=== PATIENT | female | born 1945 | race Caucasian/White ===

== ENCOUNTER → 2016-06-05 | Outpatient (CLI) | payer BC ==
[~2016-06-05] MED LIST: ASCO10003 PO; ASPCH81 PO; ASPI-435 PO; ASPI325T60 PO; ATOR-22 PO; B-COTAB18 PO; GABA-113 PO; GARL10007 PO; GARLTAB3 PO; GFNSR600 PO; HYDR-4079 PO; HYDR25TA4 PO; HYZ/10015 PO; IPRA1AER2 INH; MAGN400T6 PO; MELO15TA3 PO; METO25TA3 PO; MRLP17 PO; MULT-190 PO; NORT25CA PO; NRV/5 PO; NYSP EXT; NYSS5 PO; OMEG10007 PO; OXGN; SENN8.6T7 PO; SIMV20TA2 PO; SYMIN/8045 INH; VITA1TAB4 PO; VITA400C15 PO; VNTHFA/IN INH
[2016-06-05 10:16] LABS: BASO % 0.3 %; BASO ABS # 0.04 K/uL (0-0.2); COMPLETE YES; EOS % 0.5 %; HEMATOCRIT 53.3 % (37-47); IG% 0.2 %; LYMPH % 19.1 %; LYMPH ABS # 2.32 K/uL (1.2-3.4); MEAN CELL VOLUME 96.9 fL (80-100); MEAN CORPUSCULAR HEMOGLOBIN 32.2 pg (25-34); MEAN CORPUSCULAR HGB CONC 33.2 g/dl (32-36); MEAN PLATELET VOLUME 8.5 fL (7.4-10.4); NEUT % 73.9 %; PLATELET COUNT 273 K/uL (130-400); WHITE BLOOD COUNT 12.14 K/uL (4.8-10.8)
== END | disposition home or self-care (01) ==
LOC: C.LAB 09:32
PROVIDERS: ATTEND Internal Medicine Geriatric Medicine
DX: D75.1 Secondary polycythemia (principal)

== ENCOUNTER → 2016-10-02 | Outpatient (CLI) | payer BC ==
[~2016-10-02] MED LIST changes: -SIMV20TA2 PO
[2016-10-02 12:16] LABS: HEMATOCRIT 54.1 % (37-47); MEAN CELL VOLUME 95.2 fL (80-100); MEAN CORPUSCULAR HGB CONC 32.5 g/dl (32-36); MEAN PLATELET VOLUME 8.9 fL (7.4-10.4); PLATELET COUNT 246 K/uL (130-400); RED BLOOD COUNT 5.68 M/uL (4.2-5.4); WHITE BLOOD COUNT 10.42 K/uL (4.8-10.8)
== END ==
LOC: C.LABBFT 09:30
PROVIDERS: ATTEND Internal Medicine Geriatric Medicine
DX: D75.1 Secondary polycythemia (principal)

== ENCOUNTER 2016-10-10 22:33 | Inpatient (IN) | payer BC, OTHER ==
[~2016-10-10] VITALS: Ht 167.6 cm; Wt 107.0 kg
[~2016-10-10 22:33] MED LIST changes: -ASPI-435 PO; -ASPI325T60 PO; -GARL10007 PO; -GFNSR600 PO; -HYDR25TA4 PO; -IPRA1AER2 INH; -MRLP17 PO; -NYSP EXT; -NYSS5 PO; -SENN8.6T7 PO; -VITA1TAB4 PO; -VNTHFA/IN INH
[2016-10-10] MEDS ORDERED: GARL10007 PO (22:55)
[2016-10-10] MEDS ORDERED: VNTHFA/IN INH (22:55)
[2016-10-10] MEDS ORDERED: HYDR25TA4 PO (22:55)
[2016-10-10] MEDS ORDERED: VITA1TAB4 PO (22:55)
[2016-10-10] MEDS ORDERED: ASPI-435 PO (22:56)
[2016-10-10 23:21] LABS: BASO % 0.2 %; BASO ABS # 0.02 K/uL (0-0.2); COMPLETE YES; EOS % 0.1 %; HEMATOCRIT 50.6 % (37-47); IG% 0.8 %; LYMPH ABS # 1.99 K/uL (1.2-3.4); MEAN CELL VOLUME 94.4 fL (80-100); MEAN CORPUSCULAR HGB CONC 32.8 g/dl (32-36); MEAN PLATELET VOLUME 8.5 fL (7.4-10.4); MONO % 5.5 %; NEUT % 77.4 %; PLATELET COUNT 201 K/uL (130-400); RED BLOOD COUNT 5.36 M/uL (4.2-5.4); WHITE BLOOD COUNT 12.45 K/uL (4.8-10.8)
[2016-10-10] MEDS ORDERED: MoRPHine SULFATE 4 MG/ML 1 ML CARP\\VIAL IV STA (23:26)
[2016-10-10 23:59] LABS: INR 0.9 (0.9-1.1); PROTHROMBIN TIME (PATIENT) 10.1 SECONDS (9.0-12.0)
[2016-10-11] VITALS (12 sets, daily range): BP systolic 106–132; BP diastolic 59–76; PULSE 89–110; TEMP 36.5–37.1; O2SAT 91–95; Ht 167.6 cm; Wt 107.0 kg
[2016-10-11 00:08] LABS: ALT/SGPT 21 U/L (12-78); AST/SGOT 16 U/L (15-37); BLOOD UREA NITROGEN 14 mg/dl (7-18); BUN/CREATININE RATIO 14.7 (10-20); CALCIUM 9.1 mg/dl (8.5-10.1); CARBON DIOXIDE 32 mmol/L (21-32); CHLORIDE 101 mmol/L (98-107); CREATININE 0.97 mg/dl (0.60-1.20); GLUCOSE 152 mg/dl (70-99); POTASSIUM 3.8 mmol/L (3.5-5.1); SODIUM 141 mmol/L (136-145)
[2016-10-11 00:11] LABS: ALB/GLOB RATIO 0.8 (0.9-2); ALKALINE PHOSPHATASE 110 U/L (45-117)
[2016-10-11] MEDS ORDERED: MoRPHine SULFATE 4 MG/ML 1 ML CARP\\VIAL IV PRN (00:30)
[2016-10-11] MEDS ORDERED: ACETAMINOPHEN 325 MG TAB PO PRN (01:15)
[2016-10-11] MEDS ORDERED: ALBUTEROL HFA 8 GM INHALER INH PRN (01:15)
[2016-10-11] MEDS ORDERED: ALUMINUM/MAGNESIUM/SIMETH (MAALOX MAX) 30 ML UDC PO PRN (01:15)
[2016-10-11] MEDS ORDERED: MAGNESIUM HYDROXIDE SUSP 30 ML UDC PO PRN ×2 (01:15→18:15)
[2016-10-11] MEDS ORDERED: ONDANSETRON INJ 2 MG/ML 2 ML VIAL IV PRN ×2 (01:15→17:00)
[2016-10-11] MEDS ORDERED: POLYETHYLENE (MIRALAX) 17 GM PACK PO PRN (01:15)
--- NOTE | 2016-10-11 01:16 | EMERGENCY ROOM VISIT NOTE ---
History Report prepared by Jones: Sosa Alas Under the Supervision of: Dr. Alcides Oropeza D.O. 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 The patient stood up and lost her balance, falling sideways. She hit the edge of her left hip on a chair. She believes her hip is broken. She denies feeling dizzy when she fell. She denies any other injury. She has had her right hip repaired in the past. She has a history of PVC, polycythemia, and hypertension. 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 Review of Systems See HPI for pertinent positives & negatives. A total of 10 systems reviewed and were otherwise negative. Past Medical & Surgical Medical Problems: (1) Hip fracture (2) Hypertension (3) Polycythemia (4) PVC (premature ventricular contraction) Family History No pertinent family history stated. Social History Smoking Status: Current Every Day Smoker Marital Status: Occupation Status: retired Current/Historical Medications Scheduled Amlodipine Besylate (Amlodipine Besylate), 5 MG PO QAM Ascorbic Acid (Vitamin C), 1,000 MG PO QAM Aspirin (Aspirin 81), 81 MG PO DAILY Atorvastatin (Lipitor), 1 TAB PO DAILY Budesonide/Formoterol Fumarate (Symbicort 80/4.5 Inhaler), 2 PUFFS INH BID Fish Oil ([place]-3), 1 CAP PO DAILY Gabapentin (Neurontin), 600 MG PO TID Garlic (Garlic), 1,000 MG PO DAILY Home O2 Therapy (Oxygen), 2 LITERS NA HS Hydrocodone/Acetaminophen 10MG/325MG ([place] 10MG/325MG), 1.5 TAB PO QID Magnesium Oxide (Mag-Ox), 400 MG PO DAILY Metoprolol Succ (Toprol Xl) (Toprol-Xl), 25 MG PO DAILY Nortriptyline (Pamelor), 25 MG PO HS Ocuvite Preservision (Ocuvite Preservision), 1 TAB PO BID Vitamin E (Vitamin E), 400 UNITS PO DAILY Scheduled PRN Albuterol Hfa (Ventolin Hfa), 2 PUFFS INH Q6H PRN for SOB/Wheezing Hydrochlorothiazide (Hctz), 25 MG PO DAILY PRN for PRN Allergies Coded Allergies: Bacitracin (Verified Allergy, Unknown, EMACERATION SKIN AT SITE, 10/10/16) Neomycin (Verified Allergy, Unknown, EMACERATION SKIN AT SITE, 10/10/16) Polymyxin B (Verified Allergy, Unknown, EMACERATION SKIN AT SITE, 10/10/16) Bupropion (Verified Adverse Reaction, Severe, lips swelling, 10/10/16) Aminoglycosides (Verified Adverse Reaction, Intermediate, 10/10/16) Replaces BACITRACIN/NE Physical Exam Vital Signs Date Time Temp Pulse Resp B/P (MAP) Pulse Ox O2 Delivery O2 Flow Rate FiO2 10/11/16 01:03 106 18 93 Nasal Cannula 2.0 10/11/16 00:33 101 14 90 Nasal Cannula 2.0 10/11/16 00:03 108 18 10/10/16 23:56 126/87 10/10/16 23:53 112 10/10/16 23:33 110 24 92 Nasal Cannula 2.0 10/10/16 23:03 106 19 91 Nasal Cannula 2.0 10/10/16 22:53 36.9 108 22 188/137 95 Nasal Cannula 2.0 10/10/16 22:46 111 10/10/16 22:43 188/137 Physical Exam CONSTITUTIONAL/VITAL SIGNS: Reviewed / noted above. GENERAL: Non-toxic in appearance. INTEGUMENTARY: Warm, dry, and [place]. HEAD: Normocephalic. EYES: without scleral icterus or trauma. ENT/OROPHARYNX: clear and moist. LYMPHADENOPATHY/NECK: Is supple without lymphadenopathy or meningismus. RESPIRATORY: Lungs clear and equal. CARDIOVASCULAR: Regular rate and rhythm. GI/ABDOMEN: Soft and nontender. No organomegaly or pulsatile mass. No rebound or guarding. Normal bowel sounds. EXTREMITIES: Warm and well perfused. BACK: No CVA tenderness. NEUROLOGICAL: Intact without focal deficits. PSYCHIATRIC: normal affect. MUSCULOSKELETAL: Normally developed with good muscle tone. Discomfort to the left hip with palpation. Medical Decision & Procedures ER Provider Diagnostic Interpretation: X ray results and stated below per my interpretation. Hip/Pelvis X-ray: femoral neck fracture by the left hip. Chest X-ray: no acute disease, no pneumothorax, no pneumonia. Laboratory Results 10/10/16 23:12 Red Blood Count 5.36, Mean Corpuscular Volume 94.4, Mean Corpuscular Hemoglobin 31.0, Mean Corpuscular Hemoglobin Concent 32.8, Mean Platelet Volume 8.5, Neutrophils (%) (Auto) 77.4, Lymphocytes (%) (Auto) 16.0, Monocytes (%) (Auto) 5.5, Eosinophils (%) (Auto) 0.1, Basophils (%) (Auto) 0.2, Neutrophils # (Auto) 9.64, Lymphocytes # (Auto) 1.99, Monocytes # (Auto) 0.69, Eosinophils # (Auto) 0.01, Basophils # (Auto) 0.02 10/10/16 23:38 Test 10/10/16 23:12 10/10/16 23:38 White Blood Count 12.45 K/uL (4.8-10.8) Red Blood Count 5.36 M/uL (4.2-5.4) Hemoglobin 16.6 g/dL (12.0-16.0) Hematocrit 50.6 % (37-47) Mean Corpuscular Volume 94.4 fL (80-100) Mean Corpuscular Hemoglobin 31.0 pg (25-34) Mean Corpuscular Hemoglobin Concent 32.8 g/dl (32-36) Platelet Count 201 K/uL (130-400) Mean Platelet Volume 8.5 fL (7.4-10.4) Neutrophils (%) (Auto) 77.4 % Lymphocytes (%) (Auto) 16.0 % Monocytes (%) (Auto) 5.5 % Eosinophils (%) (Auto) 0.1 % Basophils (%) (Auto) 0.2 % Neutrophils # (Auto) 9.64 K/uL (1.4-6.5) Lymphocytes # (Auto) 1.99 K/uL (1.2-3.4) Monocytes # (Auto) 0.69 K/uL (0.11-0.59) Eosinophils # (Auto) 0.01 K/uL (0-0.5) Basophils # (Auto) 0.02 K/uL (0-0.2) RDW Standard Deviation 55.5 fL (36.4-46.3) RDW Coefficient of Variation 16.1 % (11.5-14.5) Immature Granulocyte % (Auto) 0.8 % Immature Granulocyte # (Auto) 0.10 K/uL (0.00-0.02) Prothrombin Time 10.1 SECONDS (9.0-12.0) Prothromb Time International Ratio 0.9 (0.9-1.1) Activated Partial Thromboplast Time 26.8 SECONDS (21.0-31.0) Partial Thromboplastin Ratio 1.0 Anion Gap 8.0 mmol/L (3-11) Est Creatinine Clear Calc Drug Dose 64.8 ml/min Estimated GFR () 67.6 Estimated GFR (Non- 58.3 BUN/Creatinine Ratio 14.7 (10-20) Calcium Level 9.1 mg/dl (8.5-10.1) Total Bilirubin 0.3 mg/dl (0.2-1) Direct Bilirubin < 0.1 mg/dl (0-0.2) Aspartate Amino Transf (AST/SGOT) 16 U/L (15-37) Alanine Aminotransferase (ALT/SGPT) 21 U/L (12-78) Alkaline Phosphatase 110 U/L (45-117) Total Protein 7.0 gm/dl (6.4-8.2) Albumin 3.2 gm/dl (3.4-5.0) Globulin 3.8 gm/dl (2.5-4.0) Albumin/Globulin Ratio 0.8 (0.9-2) Laboratory results as stated above per my review. Medications Administered Medications (Trade) Dose Ordered Sig/Jessica Route Start Time Stop Time Status Last Admin Dose Admin Morphine Sulfate (MoRPHine SULFATE INJ) 4 mg NOW STAT IV 10/10/16 23:26 10/10/16 23:27 DC 10/10/16 23:31 4 MG Morphine Sulfate (MoRPHine SULFATE INJ) 4 mg Q1H PRN IV 10/11/16 00:30 10/25/16 00:29 10/11/16 00:37 4 MG ECG Indication: other (fall) Rate (beats per minute): 106 Rhythm: sinus rhythm Findings: PVC, other (no acute injury) ED Course 2326: Morphine Sulfate 4 mg IV. 2328: Previous medical records were reviewed. The patient was evaluated in room A11B. A complete history and physical examination was performed. 2335: I discussed the patient's case with Dr. Lakhani, Orthopedic surgery - [facility]. He would like the patient to be admitted to medicine. 0030: Morphine Sulfate 4 mg IV. 0034: I discussed the patient's case with Dr. Shukla, [facility] [place]. The patient will be evaluated for further treatment and disposition. 0040: On reevaluation, the patient is resting comfortably. I discussed the results and findings with her. She verbalized agreement of the treatment plan. The patient will be evaluated for further management and care. Medical Decision Differential includes close head injury, intracranial bleed, facial trauma, cervical spine trauma, chest and thoracic trauma, abdominal and intra-abdominal trauma, spine neurologic trauma, extremity trauma. This is a 71-year-old female who presents to the ED with a chief complaint of a fall. The patient states that she lost her balance and fell onto a chair with her left hip. She denies striking her head or loss of consciousness. She reports a history of right hip arthroplasty by Dr. Mendes in the past. She is requesting that he see her for this injury. The patient has a left hip fracture on x-ray. She reports a history of polycythemia and hypertension. A twelve-lead EKG shows a sinus rhythm with PVCs. CBC was unremarkable. Chemistry panel was unremarkable. The patient was treated with IV morphine for pain. I spoke with Dr. Lakhani who requested medicine to admit the patient for medical clearance. Dr. Mendes can be consulted tomorrow for the patient, per her request. The patient was made nothing by mouth. I spoke with the hospitalist, who will see the patient. Consults Time Called: 2331 Consulting Physician: Dr. Lakhani, Orthopedic surgery - [facility] Returned Call: [phone] I discussed the patient's case with him. He would like the patient to be admitted to medicine. Additional Consults: Time Called: 2339 Consulted Physician: Dr. Shukla, [facility] [place] Returned Call: [phone] Additional Comments: Discussed the patient's case. The patient will be evaluated for further treatment and disposition. Impression Primary Impression: Hip fracture, left Scribe Attestation The scribe's documentation has been prepared under my direction and personally reviewed by me in its entirety. I confirm that the note above accurately reflects all work, treatment, procedures, and medical decision making performed by me. Departure Information Dispostion Being Evaluated By Hospitalist Referrals Jose Pelayo M.D. (PCP) Patient Instructions My [facility]
[2016-10-11] MEDS ORDERED: HYDROmorphone INJ 1 MG/ML SYR ONE (01:37)
--- NOTE | 2016-10-11 01:44 | History and Physical ---
History & Physical Date & Time of Service: Oct 11, 2016 at 01:25 Chief Complaint: Left Hip Pain Primary Care Physician: Jose Pelayo M.D. History of Present Illness Source: patient 71 y/o F Hx COPD, HTN, HPL, polycythemia. Pt fell out of bed and landed on her L hip sustaining an intertrochanteric fracture. She denies any preceding symptoms which may have lead to her fall such as dizziness, CP or palpitations. She had a phlebotomy of 500cc one day prior to admission. Past Medical/Surgical History 1) COPD - uses QHS 2) Polycythemia - etiology unclear - may be COPD-related 3) HTN 4) HPL 5) Continues to smoke 6) Obesity 7) Spinal stenosis 8) Neuropathy - idiopathic 9) Osteoporosis Surgical 1) R THR 2011 2) TKR 2008 3) Cataract surgery 4) Appendectomy 5) Tonsillectomy Family History Noncontributory Social History Smokes 10-20 cigarettes daily Smoking Status: Current Every Day Smoker Marital Status: Occupational Status: retired Immunizations History of Influenza Vaccine: N/A History of Tetanus Vaccine?: No History of Pneumococcal: No Pneumococcal Date: Dec 31, 2011 History of Hepatitis B Vaccine: Yes Multi-Drug Resistant Organisms History of MDRO: No Allergies Coded Allergies: Bacitracin (Verified Allergy, Unknown, EMACERATION SKIN AT SITE, 10/10/16) Neomycin (Verified Allergy, Unknown, EMACERATION SKIN AT SITE, 10/10/16) Polymyxin B (Verified Allergy, Unknown, EMACERATION SKIN AT SITE, 10/10/16) Bupropion (Verified Adverse Reaction, Severe, lips swelling, 10/10/16) Aminoglycosides (Verified Adverse Reaction, Intermediate, 10/10/16) Replaces BACITRACIN/NE Home Medications Scheduled Amlodipine Besylate (Amlodipine Besylate), 5 MG PO QAM Ascorbic Acid (Vitamin C), 1,000 MG PO QAM Aspirin (Aspirin 81), 81 MG PO DAILY Atorvastatin (Lipitor), 1 TAB PO DAILY Budesonide/Formoterol Fumarate (Symbicort 80/4.5 Inhaler), 2 PUFFS INH BID Fish Oil ([place]-3), 1 CAP PO DAILY Gabapentin (Neurontin), 600 MG PO TID Garlic (Garlic), 1,000 MG PO DAILY Home O2 Therapy (Oxygen), 2 LITERS NA HS Hydrocodone/Acetaminophen 10MG/325MG ([place] 10MG/325MG), 1.5 TAB PO QID Magnesium Oxide (Mag-Ox), 400 MG PO DAILY Metoprolol Succ (Toprol Xl) (Toprol-Xl), 25 MG PO DAILY Nortriptyline (Pamelor), 25 MG PO HS Ocuvite Preservision (Ocuvite Preservision), 1 TAB PO BID Vitamin E (Vitamin E), 400 UNITS PO DAILY Scheduled PRN Albuterol Hfa (Ventolin Hfa), 2 PUFFS INH Q6H PRN for SOB/Wheezing Hydrochlorothiazide (Hctz), 25 MG PO DAILY PRN for PRN Review of Systems Constitutional: No fever, No chills, No sweats Eyes: No worsening of vision, No eye pain ENT: No hearing loss, No unusual epistaxis, No nasal symptoms Respiratory: No cough, No sputum, No wheezing Cardiovascular: No chest pain, No orthopnea, No PND Abdomen: No pain, No nausea, No vomiting Musculoskeletal: + joint pain (L hip) Genitourinary - Female: No dysuria, No urinary frequency, No urinary urgency Neurologic: No memory loss, No paralysis, No weakness Psychiatric: No depression symptoms Endocrine: No fatigue Hematologic / Lymphatic: No abnormal bleeding/bruising Integumentary: No rash Allergic / Immunologic: No environmental allergies Physical Exam Vital Signs Date Time Temp Pulse Resp B/P (MAP) Pulse Ox O2 Delivery O2 Flow Rate FiO2 10/11/16 01:03 106 18 93 Nasal Cannula 2.0 10/11/16 00:33 101 14 90 Nasal Cannula 2.0 10/11/16 00:03 108 18 10/10/16 23:56 126/87 10/10/16 23:53 112 10/10/16 23:33 110 24 92 Nasal Cannula 2.0 10/10/16 23:03 106 19 91 Nasal Cannula 2.0 10/10/16 22:53 36.9 108 22 188/137 95 Nasal Cannula 2.0 10/10/16 22:46 111 10/10/16 22:43 188/137 General Appearance: WD/WN, no apparent distress Head: normocephalic Eyes: normal inspection, EOMI ENT: normal ENT inspection, pharynx normal Neck: supple, no JVD Respiratory/Chest: chest non-tender, + decreased breath sounds, + wheezing ( Mild end-expiratory wheezing) Cardiovascular: regular rate, rhythm, no edema, no gallop Abdomen/GI: normal bowel sounds, non tender, soft Back: normal inspection, no CVA tenderness Extremities/Musculoskelatal: + pertinent finding (LLE - shortened and externally rotated - mild B/L edema) Neurologic/Psych: staff genetic counselor II-XII nml as tested, no motor/sensory deficits, alert, normal mood/affect, normal reflexes, oriented x 3 Skin: normal color Diagnostics Laboratory Results Results Past 24 Hours Test 10/10/16 23:12 10/10/16 23:38 Range/Units White Blood Count 12.45 4.8-10.8 K/uL Red Blood Count 5.36 4.2-5.4 M/uL Hemoglobin 16.6 12.0-16.0 g/dL Hematocrit 50.6 37-47 % Mean Corpuscular Volume 94.4 80-100 fL Mean Corpuscular Hemoglobin 31.0 25-34 pg Mean Corpuscular Hemoglobin Concent 32.8 32-36 g/dl Platelet Count 201 130-400 K/uL Mean Platelet Volume 8.5 7.4-10.4 fL Neutrophils (%) (Auto) 77.4 % Lymphocytes (%) (Auto) 16.0 % Monocytes (%) (Auto) 5.5 % Eosinophils (%) (Auto) 0.1 % Basophils (%) (Auto) 0.2 % Neutrophils # (Auto) 9.64 1.4-6.5 K/uL Lymphocytes # (Auto) 1.99 1.2-3.4 K/uL Monocytes # (Auto) 0.69 0.11-0.59 K/uL Eosinophils # (Auto) 0.01 0-0.5 K/uL Basophils # (Auto) 0.02 0-0.2 K/uL RDW Standard Deviation 55.5 36.4-46.3 fL RDW Coefficient of Variation 16.1 11.5-14.5 % Immature Granulocyte % (Auto) 0.8 % Immature Granulocyte # (Auto) 0.10 0.00-0.02 K/uL Prothrombin Time 10.1 9.0-12.0 SECONDS Prothromb Time International Ratio 0.9 0.9-1.1 Activated Partial Thromboplast Time 26.8 21.0-31.0 SECONDS Partial Thromboplastin Ratio 1.0 Sodium Level 141 136-145 mmol/L Potassium Level 3.8 3.5-5.1 mmol/L Chloride Level 101 98-107 mmol/L Carbon Dioxide Level 32 21-32 mmol/L Anion Gap 8.0 3-11 mmol/L Blood Urea Nitrogen 14 7-18 mg/dl Creatinine 0.97 0.60-1.20 mg/dl Est Creatinine Clear Calc Drug Dose 64.8 ml/min Estimated GFR () 67.6 Estimated GFR (Non- 58.3 BUN/Creatinine Ratio 14.7 10-20 Random Glucose 152 70-99 mg/dl Calcium Level 9.1 8.5-10.1 mg/dl Total Bilirubin 0.3 0.2-1 mg/dl Direct Bilirubin < 0.1 0-0.2 mg/dl Aspartate Amino Transf (AST/SGOT) 16 15-37 U/L Alanine Aminotransferase (ALT/SGPT) 21 12-78 U/L Alkaline Phosphatase 110 45-117 U/L Total Protein 7.0 6.4-8.2 gm/dl Albumin 3.2 3.4-5.0 gm/dl Globulin 3.8 2.5-4.0 gm/dl Albumin/Globulin Ratio 0.8 0.9-2 Diagnostic Radiology L intertrochanteric fracture EKG Sinus tach PACs - no evidence of ischemia Impression Assessment and Plan 71 y/o F Hx COPD, HTN, HPL, polycythemia. Pt fell out of bed and landed on her L hip sustaining an intertrochanteric fracture. She denies any preceding symptoms which may have lead to her fall such as dizziness, CP or palpitations. She had a phlebotomy of 500cc one day prior to admission. 1) L hip fracture - Pts orthopedist consulted - will be kept NPO - diuretics held - will continue her B nanci, statin, Jasiel and narcotics as needed. RCRI is technically 0.4% - exercise capacity is limited to gauge mets. 2) COPD - incentive spirometry requested - cont prescribed inhalers and night- time 02 Pt likely has ALBERT and may require lester-op CPAP. 3) Polycythemia - She had a phlebotomy of 500cc one day prior to admission. There will be expected blood loss with surgery which she can afford. We will provide IVF overnight and she should be anticoagulated at the earliest possible time - ASA should be restarted immediately following surgery. 4) HTN - cont Toprol - HCTZ held pre-op 5) HPL - cont Statin therapy Full code - SCDs pending ortho eval Total time for this admit including review of labs, meds, records, imaging, EKG - discussion with pt and ER attending - 35 min Level of Care Med/Surg Resuscitation Status FULL RESUSCITATION VTE Prophylaxis VTE Risk Assessment Done? Y/N: Yes Risk Level: Moderate Given or contraindicated: SCD's
[2016-10-11] MEDS ORDERED: NSS + 20MEQ KCL 1000ML 1,000 ML IV SCH (03:00)
[2016-10-11] MEDS: HYDROmorphone INJ 1 MG/ML SYR IV PRN ×4 (04:47→21:38)
[2016-10-11] MEDS ORDERED: PNEUMOCOCCAL ADMINISTRATION CHARGE ONE (06:00)
[2016-10-11] MEDS ORDERED: PNEUMOCOCCAL POLYSACCHARIDES 25 MCG/0.5 ML VIAL/SYR IM. ONE (06:00)
[2016-10-11] MEDS ORDERED: HYDROCODONE/ACETAMI 10/325 TAB ONE (06:37)
--- NOTE | 2016-10-11 06:47 | DIAGNOSTIC IMAGING REPORT ---
CHEST ONE VIEW PORTABLE CLINICAL HISTORY: EVALUATE ALTERED MENTAL STATUS/WEAKNESS mental status change COMPARISON STUDY: 01/28/2014 FINDINGS: The bones soft tissues and hemidiaphragms are normal. The cardiomediastinal silhouette is normal. The lungs are clear. The pulmonary vasculature is normal. IMPRESSION: Negative chest. Electronically signed by: Andre Murdock M.D. 10/11/2016 6:46 AM Dictated Date/Time: 10/11/2016 6:46 AM
--- NOTE | 2016-10-11 06:49 | DIAGNOSTIC IMAGING REPORT ---
LEFT PELVIS/UNILATERAL HIP 1 VIEW CLINICAL HISTORY: fall pain. Trauma. COMPARISON: None. DISCUSSION: Status post total right hip replacement. Had subcapital and a femoral neck fracture left hip. No evidence for acetabular protrusion. There is no evidence for soft tissue swelling. IMPRESSION: Limited study due to body habitus. Probable fracture subcapital region/left femoral neck region left hip. Pre-existing total right hip prosthetic. Electronically signed by: Andre Murdock M.D. 10/11/2016 6:48 AM Dictated Date/Time: 10/11/2016 6:46 AM
--- NOTE | 2016-10-11 07:36 | DIAGNOSTIC IMAGING REPORT ---
LEFT HIP UNILATERAL 2 VIEWS CLINICAL HISTORY: Left Hip Fracture trauma COMPARISON: None. DISCUSSION: Subcapital fracture left hip. Mild superior migration left femoral shaft. No evidence of dislocation. No evidence for stable protrusion. There is no evidence for soft tissue swelling. IMPRESSION: Subcapital fracture left hip. Electronically signed by: Andre Murdock M.D. 10/11/2016 7:35 AM Dictated Date/Time: 10/11/2016 7:34 AM
--- NOTE | 2016-10-11 08:23 | Hospitalist Progress Note ---
Hospitalist Progress Note Date of Service Oct 11, 2016. (Sulma Sullivan PA-C) Subjective Pt evaluation today including: conversation w/ patient, physical exam, chart review, lab review, review of studies, conversation w/ inside sales consultant Pain: Moderate, 7/10 PO Intake: NPO Voiding: joe catheter in place The patient was seen and examined this morning. Pt reports her pain is significant and she's not doing well today. She is anticipating surgery later today. She does have a complaint of wheezing and is requesting nebulizers for her breathing, and states that at home she uses mucinex every 3 days or so to help with congestion. She denies feeling short of breath, no chest pain. She becomes teary-eyed when talking about a "labor chair" which was her mothers, given to her by her brother, which broke when she fell, she says she's equally upset about that and her hip. Constitutional: No fever, No chills, No sweats Eyes: No worsening of vision, No diplopia ENT: No trouble swallowing Respiratory: + wheezing, No cough, No sputum, No shortness of breath, No dyspnea at rest Cardiovascular: No chest pain, No palpitations Abdomen: No pain, No nausea, No vomiting, No diarrhea, No constipation Musculoskeletal: No muscle pain, No swelling Female : No dysuria Neurologic: No weakness, No numbness/tingling, No balance problems Skin: No rash, No itch (Sulma Sullivan PA-C) Objective Vital Signs Date Time Temp Pulse Resp B/P (MAP) Pulse Ox O2 Delivery O2 Flow Rate FiO2 10/11/16 07:42 36.8 96 16 132/73 (92) 92 Room Air 10/11/16 04:40 Nasal Cannula 2.0 10/11/16 03:05 36.8 110 17 127/66 Nasal Cannula 2.0 10/11/16 02:25 36.8 110 17 127/66 (86) 94 Nasal Cannula 2.0 10/11/16 01:59 104 16 115/76 94 10/11/16 01:03 106 18 93 Nasal Cannula 2.0 10/11/16 00:33 101 14 90 Nasal Cannula 2.0 10/11/16 00:03 108 18 10/10/16 23:56 126/87 10/10/16 23:53 112 10/10/16 23:33 110 24 92 Nasal Cannula 2.0 10/10/16 23:03 106 19 91 Nasal Cannula 2.0 10/10/16 22:53 36.9 108 22 188/137 95 Nasal Cannula 2.0 10/10/16 22:46 111 10/10/16 22:43 188/137 (Sulma Sullivan PA-C) Physical Exam General Appearance: WD/WN, no apparent distress, + obese Eyes: PERRL, EOMI ENT: hearing grossly normal, pharynx normal Neck: supple, no JVD Respiratory/Chest: + pertinent finding (On 2 L via NC, +inspiratory & expiratory wheezing on the right side, diminished breath sounds at the left base , no crackles. + nonproductive cough) Cardiovascular: no JVD, no murmur, + tachycardia Abdomen: normal bowel sounds, non tender, soft Extremities: non-tender, no pedal edema, no calf tenderness, + pertinent finding (Left leg shortened and externally rotated) Neurologic/Psychiatric: alert, oriented x 3 Skin: normal color, warm/dry (Sulma Sullivan, KATARINA-C) Laboratory Results Last 24 Hours Test 10/10/16 23:12 10/10/16 23:38 White Blood Count 12.45 K/uL Red Blood Count 5.36 M/uL Hemoglobin 16.6 g/dL Hematocrit 50.6 % Mean Corpuscular Volume 94.4 fL Mean Corpuscular Hemoglobin 31.0 pg Mean Corpuscular Hemoglobin Concent 32.8 g/dl Platelet Count 201 K/uL Mean Platelet Volume 8.5 fL Neutrophils (%) (Auto) 77.4 % Lymphocytes (%) (Auto) 16.0 % Monocytes (%) (Auto) 5.5 % Eosinophils (%) (Auto) 0.1 % Basophils (%) (Auto) 0.2 % Neutrophils # (Auto) 9.64 K/uL Lymphocytes # (Auto) 1.99 K/uL Monocytes # (Auto) 0.69 K/uL Eosinophils # (Auto) 0.01 K/uL Basophils # (Auto) 0.02 K/uL RDW Standard Deviation 55.5 fL RDW Coefficient of Variation 16.1 % Immature Granulocyte % (Auto) 0.8 % Immature Granulocyte # (Auto) 0.10 K/uL Prothrombin Time 10.1 SECONDS Prothromb Time International Ratio 0.9 Activated Partial Thromboplast Time 26.8 SECONDS Partial Thromboplastin Ratio 1.0 Sodium Level 141 mmol/L Potassium Level 3.8 mmol/L Chloride Level 101 mmol/L Carbon Dioxide Level 32 mmol/L Anion Gap 8.0 mmol/L Blood Urea Nitrogen 14 mg/dl Creatinine 0.97 mg/dl Est Creatinine Clear Calc Drug Dose 64.8 ml/min Estimated GFR () 67.6 Estimated GFR (Non- 58.3 BUN/Creatinine Ratio 14.7 Random Glucose 152 mg/dl Calcium Level 9.1 mg/dl Total Bilirubin 0.3 mg/dl Direct Bilirubin < 0.1 mg/dl Aspartate Amino Transf (AST/SGOT) 16 U/L Alanine Aminotransferase (ALT/SGPT) 21 U/L Alkaline Phosphatase 110 U/L Total Protein 7.0 gm/dl Albumin 3.2 gm/dl Globulin 3.8 gm/dl Albumin/Globulin Ratio 0.8 (Sulma Sullivan, SHAHZAD) Assessment and Plan 71 y/o F Hx COPD, HTN, HPL, polycythemia. Pt fell as she was getting up from a chair and landed on her L hip sustaining an intertrochanteric fracture. She denies any preceding symptoms which may have lead to her fall such as dizziness , CP or palpitations. L intertrochanteric hip fracture - Pts orthopedist consulted- Dr. Mendes plans to take her for surgical fixation this afternoon. - NPO except meds for now - Analgesia with dilaudid 1 mg Q3H only working temporarily, will add on tylenol around the clock, and percocet 5 mg Q4H, continue gabapentin 600 mg TID - Start bowel regimen with amount of narcotics. - Cont IVFs preoperatively, holding HCTZ - PT/OT after surgery COPD - incentive spirometry requested - cont prescribed inhalers and night-time 02 - Ordered duonebs and mucinex per patient request. - Pt likely has ALBERT and may require lester-op CPAP. Tobacco Use - Cessation discussed at bedside, pt continues to smoke, will order a nicotine replacement patch for her Polycythemia - She had a phlebotomy of 500cc one day prior to admission(10/09). There will be expected blood loss with surgery which she can afford. We will provide IVF overnight and she should be anticoagulated at the earliest possible time - ASA should be restarted immediately following surgery. HTN - cont metop succ 25 mg QAM, amlodipine 5 mg QAM - HCTZ 25 mg held pre-op Hyperlipidemia - cont atorvastatin 20 mg QPM DVT ppx: SCD on right leg, chemical anticoagulation contraindicated due to impending surgical fixation CODE STATUS: Full code Disposition: Surgery at 3:30 today, will need PT/OT post op and likely rehab after hospital stay. (Sulma Sullivan, SHAHZAD) Attending Attestation & Admission Note: Pt seen/examined, chart reviewed, and care plan d/w PA Roxanne Sullivan. I agree w/ the ng components of her documentation. I saw the patient prior to her surgery today. She c/o wheezing but no dyspnea or orthopnea at rest. On chronic basis denies any chest pain or significant dyspnea. VSS afebrile gen - obese, nad neck - no JVD heart - RRR, s1, s2, no murmur lungs - mild diffuse wheezes, no rales abd - soft ext - left leg mildly flexed and externally rotated, no edema A/P: 1. left hip fracture - to OR today for ORIF. Defer DVT proph to orthopedics. Check vit D level in am. 2. COPD - cont O2, scheduled nebs. 3. polycythemia - cbc in am. H/H reasonable at this time. 4. tobacco depen - nicoderm patch. 5. HTN - controlled. Dedra PERRY MD (Narayan Perry MD)
[2016-10-11] MEDS: MAGNESIUM OXIDE 400 MG TAB PO SCH (08:50)
[2016-10-11] MEDS: GABAPENTIN 600 MG TAB PO SCH ×3 (08:51→20:27)
[2016-10-11] MEDS: AMLODIPINE BESYLATE 5 MG TAB PO SCH (08:54)
[2016-10-11] MEDS: METOPROLOL SUCC 25MG EXT REL TAB PO SCH (08:54)
[2016-10-11] MEDS: BUDESONIDE/FORMOTEROL FUMARATE 80/4.5 60 PUFFS/INHALER INH SCH ×2 (08:55→20:25)
[2016-10-11] MEDS ORDERED: NURSING VERBAL MED ORDER ONE (09:00)
[2016-10-11] MEDS ORDERED: ATORVASTATIN 20 MG TAB PO SCH (09:00)
[2016-10-11] MEDS ORDERED: HYDROCODONE/ACETAMI 10/325 TAB PO PRN (09:00)
--- NOTE | 2016-10-11 11:04 | CONSULTATION REPORT ---
DATE OF CONSULTATION: 10/11/2016 DATE OF CONSULTATION: 10/11/2016. CHIEF COMPLAINT: Left hip fracture. HISTORY OF PRESENT ILLNESS: Dora is a 71-year-old female admitted overnight with a acute left hip fracture. She states that she was just in her recliner and was getting up and she is not exactly sure why she fell but she fell to her left. No lightheadedness or chest pain or shortness of breath at the time. She landed on her left side injuring her left hip. She said she knew it was broken immediately, no other complaints. She denies any neck pain. No loss of consciousness. She does have some chronic back pain. Prior to this fall she had no left hip pain. She did ambulate occasionally with a cane due to her back she said. No other complaints at this time. PAST MEDICAL HISTORY: Significant for COPD, polycythemia with recent phlebotomy, hypertension, PVCs, history of smoking, obesity, spinal stenosis, neuropathy, osteoporosis. PAST SURGICAL HISTORY: Includes right total hip arthroplasty, right total knee arthroplasty, cataract surgery, appendectomy, tonsillectomy. FAMILY HISTORY: Noncontributory. SOCIAL HISTORY: She does smoke. She is , lives with her . ALLERGIES: REVIEWED INCLUDE BACITRACIN, NEOMYCIN, POLYMYXIN B, BUPROPION, AMINOGLYCOSIDES. MEDICATIONS: Reviewed include amlodipine, vitamin C, aspirin 81 mg, atorvastatin, Symbicort, fish oil, gabapentin, garlic, home oxygen, Carmichaels, magnesium oxide, Toprol-XL, Pamelor, Ocuvite, vitamin E, albuterol and HCTZ. REVIEW OF SYSTEMS: Denies any chest pain, shortness of breath. She does have a history of some neuropathy in her lower extremities. No other musculoskeletal complaints. PHYSICAL EXAMINATION: GENERAL: She is alert, oriented. She is in no distress, lying supine in bed. EXTREMITIES: Examination of her upper extremities today she has good range of motion of her shoulders, elbows, hands. No pain with range of motion, no swelling or tenderness of the upper extremities. She has no pain with gentle motion of her right leg. No swelling of her right lower extremity. Examination of the left leg is shortened and externally rotated. She does have some mild swelling to her knee. She is able to dorsiflex, plantarflex appropriately. Sensation is intact to touch. X-rays were reviewed of her hip and pelvis shows displaced left femoral neck fracture. She does have previous right total hip arthroplasty. IMPRESSION: Displaced left femoral neck fracture. PLAN: She was seen and examined by Dr. Mendes today. She was admitted by the hospitalist service overnight. She says she is getting Dilaudid for pain. Pain is reasonably controlled at this point. We discussed treatment options with her regarding her hip and at this time would recommend taking her to the operating room for a cemented bipolar hemiarthroplasty versus total hip arthroplasty. Procedure was explained including the risks and benefits of surgery and consent was obtained. She is n.p.o. We will keep her n.p.o. at this time. Will order BETTY stockings and SCDs for DVT prophylaxis, type and screen. Will plan on surgery later this afternoon. RAAD
[2016-10-11] MEDS: ALBUT/IPRATROP 3MG/0.5MG NEB 3 ML VIAL INH SCH ×3 (11:37→20:06)
[2016-10-11] MEDS ORDERED: GUAIFENESIN 600 MG TABCR PO PRN (12:30)
[2016-10-11] MEDS ORDERED: BISACODYL 10 MG SUPP PR PRN ×2 (12:30→18:15)
[2016-10-11] MEDS: BISACODYL 5 MG TABEC PO SCH ×2 (13:15→20:28)
[2016-10-11] MEDS: NICOTINE 14 MG/24 HR TDSY TD SCH (13:40)
[2016-10-11] MEDS: ACETAMINOPHEN 500 MG TAB PO SCH ×2 (13:42→21:58)
[2016-10-11] MEDS ORDERED: BUPIVACAINE 0.5 % 5 MG/1 ML PF 10ML VIAL ONE (14:11)
[2016-10-11] MEDS: NYSTATIN SUSP 500,000 U/5 ML UDC PO SCH ×3 (14:11→20:25)
[2016-10-11] MEDS: OXYCODONE HCL IR 5 MG TAB (IMMEDIATE RELEASE) PO PRN ×2 (14:14→20:24)
[2016-10-11] MEDS ORDERED: PROPOFOL IV EMULSION 10 MG/ML 20 ML VIAL IV ONE (14:16)
[2016-10-11] MEDS ORDERED: ONDANSETRON INJ 2 MG/ML 2 ML VIAL ONE (14:16)
[2016-10-11] MEDS ORDERED: MIDAZOLAM HCL 1 MG/ML 2ML VIAL ONE ×2 (14:17→17:10)
[2016-10-11] MEDS ORDERED: FENTANYL CITRATE INJ 50 MCG/1 ML 2 ML VIAL ONE ×2 (14:17→18:05)
[2016-10-11] MEDS ORDERED: THROMBIN FOR SOLN 20000 UNIT KIT ONE (15:14)
[2016-10-11] MEDS ORDERED: BACITRACIN 50000 UNIT VIAL ONE (15:14)
[2016-10-11] MEDS ORDERED: SODIUM CHLORIDE 0.9% INJ 10 ML VIAL ONE ×2 (15:17→16:18)
[2016-10-11] MEDS ORDERED: KETAMINE HCL INJ 50 MG/ML 10 ML VIAL ONE (15:17)
[2016-10-11] MEDS ORDERED: CEFAZOLIN IV 2,000 MG/60 ML D5W IV ONE (15:31)
[2016-10-11] MEDS ORDERED: VASOPRESSIN 20 UNIT/ML VIAL ONE (16:18)
[2016-10-11] MEDS ORDERED: PHENYLEPHRINE 100MCG/ML 5ML SYR ONE (16:18)
[2016-10-11] MEDS ORDERED: EpHEDrine SULFATE INJ 50 MG/ML AMP IV PRN (17:00)
[2016-10-11] MEDS ORDERED: FENTANYL CITRATE INJ 50 MCG/1 ML 2 ML VIAL IV PRN (17:00)
[2016-10-11] MEDS ORDERED: HYDROmorphone INJ 1 MG/ML SYR IV PRN (17:00)
[2016-10-11] MEDS ORDERED: ATROPINE SULFATE 0.1 MG/ML 5ML SYR IV PRN (17:00)
[2016-10-11] MEDS ORDERED: BUPIVACAINE/EPINEPHRINE 0.5% MPF 1:200,000 30 ML VIAL INJ ONE (17:41)
--- NOTE | 2016-10-11 18:03 | [facility] Post Operative Brief Note ---
Immediate Operative Summary Operative Date Oct 11, 2016. Pre-Operative Diagnosis Displaced left femoral neck fracture Post-Operative Diagnosis Displaced left femoral neck fracture. Procedure(s) Performed Left Bipolar Hip Hemiarthroplasty Cemented Biomet Surgeon Dr. Mendes Agricultural Lender Surgeon(s) Narinder Amaya PA-C Estimated Blood Loss 200ML Findings Displaced Femoral Neck Fracture Specimens A. Left Femoral Head Drains None Anesthesia Spinal Complication(s) None Disposition Recovery Room / PACU
--- NOTE | 2016-10-11 18:36 | Anesthesiology Progress Note ---
Anesthesia Post Op Note Date & Time Oct 11, 2016 at 18:36 Vital Signs Pain Intensity: 2 Vital Signs Past 12 Hours Date Time Temp Pulse Resp B/P (MAP) Pulse Ox O2 Delivery O2 Flow Rate FiO2 10/11/16 18:30 37 102 22 115/69 94 Nasal Cannula 3 10/11/16 18:15 103 22 126/66 97 Nasal Cannula 3 10/11/16 18:05 100 22 139/69 97 Nasal Cannula 3 10/11/16 17:55 36.4 104 22 127/72 97 Nasal Cannula 3 10/11/16 11:37 92 18 95 Nasal Cannula 2.0 10/11/16 08:53 92 120/76 (91) 10/11/16 07:45 Nasal Cannula 2.0 10/11/16 07:42 36.8 96 16 132/73 (92) 92 Room Air Notes Mental Status: alert / awake / arousable, participated in evaluation Pt Amnestic to Procedure: Yes Nausea / Vomiting: adequately controlled Pain: adequately controlled Airway Patency, RR, SpO2: stable & adequate BP & HR: stable & adequate Hydration State: stable & adequate Anesthetic Complications: no major complications apparent
--- NOTE | 2016-10-11 18:42 | DIAGNOSTIC IMAGING REPORT ---
PELVIS AND LEFT HIP 2 VIEWS CLINICAL HISTORY: Left hip fracture COMPARISON STUDY: 10/10/2016 FINDINGS: Again evident is a total right hip arthroplasty. Now evident is a new bipolar left hip arthroplasty. There is no dislocation. No acute fractures are visualized. Overlying skin filomena are evident. Air within the soft tissues is felt to be postsurgical IMPRESSION: Interval placement of a bipolar left hip arthroplasty. Electronically signed by: Wesley Kerr M.D. 10/11/2016 6:40 PM Dictated Date/Time: 10/11/2016 6:39 PM
[2016-10-11] MEDS: ASPIRIN/ALUM/MAGNES/CAL CARB 325 MG TAB PO SCH (20:26)
[2016-10-11] MEDS: DOCUSATE SODIUM/SENNA 50/8.6MG TAB PO SCH (20:27)
[2016-10-11] MEDS: NORTRIPTYLINE HCL 25 MG CAP PO SCH (20:28)
[2016-10-11] MEDS: ATORVASTATIN 20 MG TAB PO SCH (20:28)
--- NOTE | 2016-10-11 20:47 | OPERATIVE REPORT ---
DATE OF OPERATION: 10/11/2016 SURGEON: Kulwant Mendes MD PRODUCER ARBORIST MANAGER: KATARINA Guadarrama PREOPERATIVE DIAGNOSIS: Left displaced femoral neck fracture. POSTOPERATIVE DIAGNOSIS: Same. PROCEDURE PERFORMED: Left cemented bipolar hip arthroplasty. COMPLICATIONS: None. ESTIMATED BLOOD LOSS: 200 mL. FLUID REPLACEMENT: 1600 mL crystalloid fluid replacement. ANESTHESIA: Spinal. DRAINS: None. SPECIMENS: Left femoral head sent for pathology. OPERATIVE INDICATIONS: The patient is a 71-year-old female well known patient of mine who is status post a right hip replacement, right total knee replacement in the past who sustained a fall yesterday. She had acute onset of pain and was unable to ambulate. She usually uses a cane to ambulate due to back issues. She had no preexisting hip pain. The patient was admitted to the hospital for a displaced femoral neck fracture. She was medically optimized and indicated for surgical treatment. OPERATIVE IMPLANTS: Operative implants consisted of: 1. Size 11 Biomet generation 4 cemented polished femoral stem. 2. A size 12 centralizer. 3. A +3/28 mm articular ball. 4. A 49 mm bipolar shell and liner. 5. A large cement restrictor. OPERATIVE PROCEDURE: The patient taken to the operating room, identified and placed on operative table in supine position. All contact areas were appropriately padded. IV antibiotics were provided by the anesthesia team. A spinal anesthetic was implemented by anesthesia team. The patient was then placed in the right lateral decubitus position. An axillary roll was placed. Stlberg hip positioner was used for positioning. Left hip was then prepped and draped in the usual sterile fashion. Posterolateral approach to the left hip was then performed through a curvilinear incision centered over the greater trochanter. Sharp dissection was carried out through the subcutaneous tissues down to the level of the IT band and gluteal fascia. The IT band and gluteal fascia was incised longitudinally in line with skin incision. The underlying greater trochanteric bursa was excised. The piriformis and external rotators were tagged and taken off the posterior aspect of the femur. Great care was taken throughout the procedure to protect the sciatic nerve at all times. I then made an incision in the posterior capsule to allow for later repair and each flap was then tagged. The hip was internally rotated. Femoral neck osteotomy cut was made just below the base of the fracture. The femoral neck fractured fragment was removed. The femoral head was removed and sized. We then trialed the acetabulum and a size 49 fit most appropriately. Attention was then drawn to the femur. The proximal femur was entered with a cookie cutter followed by canal finder and lateralizing reamer. I then broached beginning with a size 7 progressing up to 11. We got pretty good fit at 11, but it was still a bit loose. I did not think her canal was big enough to probably fit the 13, so we stuck with the 11. We then trialed the hip. The +3 articular ball provided full stability and full extension and external rotation, flexion to 90 degrees, internal rotation over 60 degrees. Soft tissue tension seemed appropriate and leg length seemed appropriate. We elected to use these implants. All trial implants were removed. A large cement restrictor was placed down the canal. The canal was irrigated and then cleaned. A double batch of Palacos G cement was mixed. A size 11 polished femoral stem was then placed and held in position until the cement hardened. Once the cement hardened, a +3/28 mm articular ball followed by a 49 bipolar shell and liner were placed. Hip was located and once again found to be stable. Attention was then drawn toward closing. The wound was irrigated with copious amounts of normal saline. I did inject locally with 50 mL of 0.5% Marcaine with epinephrine. The posterior capsule was then repaired with #2 Ti-Cron suture. The external rotators were repaired to the posterior aspect of the hip abductors with #2 Ti-Cron suture. The IT band and gluteal fascia were then closed with #1 PDS suture in running fashion. The subcutaneous tissues were then closed in 3 layers with the deep 2 layers with #1 Vicryl suture and the subcutaneous tissues with 2-0 Dexon suture in a buried interrupted fashion. Skin was closed with skin filomena. Leg was then cleaned and dried and a sterile dressing of Xeroform, 4 x 4s, ABD pad and foam tape was applied. The patient was then transferred to the recovery room in stable condition. The patient tolerated the procedure well with no complications. All needle and sponge counts were correct at the end of the operation. I attest to the content of the Intraoperative Record and any orders documented therein. Any exceptions are noted below. RAAD
[2016-10-11] MEDS: CEFAZOLIN IV 2,000 MG in DEXTROSE 5% 50ML 50 ML IV SCH (21:52)
[2016-10-12] VITALS (18 sets, daily range): BP systolic 97–126; BP diastolic 56–75; PULSE 50–111; TEMP 36.7–39.1; O2SAT 63–96
[2016-10-12] MEDS: OXYCODONE HCL IR 5 MG TAB (IMMEDIATE RELEASE) PO PRN ×3 (03:01→19:46)
[2016-10-12] MEDS: CEFAZOLIN IV 2,000 MG in DEXTROSE 5% 50ML 50 ML IV SCH (05:44)
[2016-10-12] MEDS: HYDROmorphone INJ 1 MG/ML SYR IV PRN ×2 (05:44→14:18)
[2016-10-12] MEDS: ACETAMINOPHEN 500 MG TAB PO SCH ×3 (05:46→21:47)
[2016-10-12] MEDS ORDERED: CEFAZOLIN 2000 MG/60 ML D5W 60 ML IV SCH (06:00)
[2016-10-12] MEDS: ALBUT/IPRATROP 3MG/0.5MG NEB 3 ML VIAL INH SCH ×4 (07:25→20:09)
[2016-10-12 07:52] LABS: HEMATOCRIT 43.2 % (37-47); MEAN CELL VOLUME 95.2 fL (80-100); MEAN CORPUSCULAR HEMOGLOBIN 30.2 pg (25-34); MEAN CORPUSCULAR HGB CONC 31.7 g/dl (32-36); MEAN PLATELET VOLUME 8.4 fL (7.4-10.4); PLATELET COUNT 190 K/uL (130-400); RED BLOOD COUNT 4.54 M/uL (4.2-5.4)
[2016-10-12 08:04] LABS: BUN/CREATININE RATIO 13.4 (10-20); CALCIUM 8.3 mg/dl (8.5-10.1); CREATININE 0.91 mg/dl (0.60-1.20); POTASSIUM 4.3 mmol/L (3.5-5.1)
[2016-10-12] MEDS: BISACODYL 5 MG TABEC PO SCH ×2 (09:00→21:46)
[2016-10-12] MEDS: POLYETHYLENE (MIRALAX) 17 GM PACK PO SCH (09:00)
--- NOTE | 2016-10-12 09:09 | Anesthesiology Progress Note ---
Anesthesia Post Op Note Date & Time Oct 12, 2016 at 09:08 Vital Signs Pain Intensity: 7.0 Vital Signs Past 12 Hours Date Time Temp Pulse Resp B/P (MAP) Pulse Ox O2 Delivery O2 Flow Rate FiO2 10/12/16 07:56 37.6 104 12 122/68 (86) 92 Nasal Cannula 3.0 10/12/16 07:25 96 16 94 Nasal Cannula 3.0 10/12/16 07:20 Nasal Cannula 3.0 10/12/16 07:09 36.7 111 18 114/70 (85) 94 Nasal Cannula 3.0 10/12/16 06:02 Nasal Cannula 3.0 95 10/12/16 03:29 93 Nasal Cannula 2.0 10/12/16 03:28 37.0 94 20 118/68 (85) 63 Room Air 10/11/16 23:52 Nasal Cannula 2.0 10/11/16 22:50 37.1 99 20 107/63 (78) 94 Nasal Cannula 2.0 10/11/16 21:48 37.1 100 16 108/67 (81) 94 Nasal Cannula 2.0 Notes Mental Status: alert / awake / arousable, participated in evaluation
[2016-10-12] MEDS: MAGNESIUM OXIDE 400 MG TAB PO SCH (09:12)
[2016-10-12] MEDS: BUDESONIDE/FORMOTEROL FUMARATE 80/4.5 60 PUFFS/INHALER INH SCH ×2 (09:12→21:48)
[2016-10-12] MEDS: ASPIRIN/ALUM/MAGNES/CAL CARB 325 MG TAB PO SCH ×2 (09:13→21:46)
[2016-10-12] MEDS: NICOTINE 14 MG/24 HR TDSY TD SCH (09:14)
[2016-10-12] MEDS: GABAPENTIN 600 MG TAB PO SCH ×3 (09:14→21:47)
[2016-10-12] MEDS: AMLODIPINE BESYLATE 5 MG TAB PO SCH (09:18)
[2016-10-12] MEDS: METOPROLOL SUCC 25MG EXT REL TAB PO SCH (09:18)
[2016-10-12] MEDS: NYSTATIN SUSP 500,000 U/5 ML UDC PO SCH ×4 (09:19→21:47)
[2016-10-12] MEDS ORDERED: ERGOCALCIFEROL 50,000 INTER.UNIT CAP PO SCH (10:00)
--- NOTE | 2016-10-12 11:29 | Hospitalist Progress Note ---
Hospitalist Progress Note Date of Service Oct 12, 2016. (Sulma Sullivan PA-C) Subjective Pt evaluation today including: conversation w/ patient, physical exam, chart review, lab review, review of studies Pain: Mild R hip PO Intake: Good Voiding: joe catheter in place The patient was seen and examined this morning. Pt reports doing better today, she was up and walking through the [place]. She is having some referred pain down her right hip, but denies any numbness or tingling which is changed. Pt has chronic neuropathy in both lower ext. She is eating without difficulty. She slept well overnight. Her wheezing in the chest is much improved, and she feels any coughing she had yesterday is better with nebulizers on board. Constitutional: No fever, No chills, No sweats Eyes: No discharge, No diplopia ENT: No nasal symptoms, No trouble swallowing Respiratory: No cough, No sputum, No wheezing, No shortness of breath, No dyspnea on exertion, No dyspnea at rest Cardiovascular: No chest pain, No palpitations Abdomen: + constipation (day #2 without BM), No pain, No nausea, No vomiting , No diarrhea Musculoskeletal: + joint pain (R hip, bandage c/d/i. ), No muscle pain, No swelling Female : + problem reported (joe catheter in place draining dark yellow urine), No dysuria Neurologic: + problem reported (neuropathy in BLE chronic), No weakness Endo: No fatigue Skin: No rash, No itch (Sulma Sullivan PA-C) Objective Vital Signs Date Time Temp Pulse Resp B/P (MAP) Pulse Ox O2 Delivery O2 Flow Rate FiO2 10/12/16 10:04 93 Nasal Cannula 3.0 10/12/16 09:17 104 112/74 (87) 10/12/16 07:56 37.6 104 12 122/68 (86) 92 Nasal Cannula 3.0 10/12/16 07:25 96 16 94 Nasal Cannula 3.0 10/12/16 07:20 Nasal Cannula 3.0 10/12/16 07:09 36.7 111 18 114/70 (85) 94 Nasal Cannula 3.0 10/12/16 06:02 Nasal Cannula 3.0 95 10/12/16 03:29 93 Nasal Cannula 2.0 10/12/16 03:28 37.0 94 20 118/68 (85) 63 Room Air 10/11/16 23:52 Nasal Cannula 2.0 10/11/16 22:50 37.1 99 20 107/63 (78) 94 Nasal Cannula 2.0 10/11/16 21:48 37.1 100 16 108/67 (81) 94 Nasal Cannula 2.0 10/11/16 20:40 36.6 104 16 115/76 (89) 91 10/11/16 20:06 89 16 95 Nasal Cannula 2.0 10/11/16 19:44 36.9 101 16 117/59 (78) 94 Nasal Cannula 3.0 10/11/16 19:12 36.5 95 20 106/66 (79) 92 Nasal Cannula 3.0 10/11/16 18:45 37.0 100 18 122/73 (89) 93 Nasal Cannula 3.0 10/11/16 18:45 93 Nasal Cannula 3.0 10/11/16 18:45 Nasal Cannula 3.0 10/11/16 18:30 37 102 22 115/69 94 Nasal Cannula 3 10/11/16 18:15 103 22 126/66 97 Nasal Cannula 3 10/11/16 18:05 100 22 139/69 97 Nasal Cannula 3 10/11/16 17:55 36.4 104 22 127/72 97 Nasal Cannula 3 10/11/16 11:37 92 18 95 Nasal Cannula 2.0 (Sulma Sullivan, PA-C) Physical Exam Notes: General Appearance: WD/WN, no apparent distress, + obese, sitting up in bedside chair Eyes: PERRL, EOMI ENT: hearing grossly normal, pharynx normal Neck: supple, no JVD Respiratory/Chest: + pertinent finding (On 2 L via NC, mild expiratory wheezing on the right side, improved breath sounds throughout, + nonproductive cough) Cardiovascular: no JVD, no murmur, + tachycardia Abdomen: normal bowel sounds, non tender, soft Extremities: non-tender, no calf tenderness, + pertinent finding + pedal edema in the LLE, 1+ pitting. Neurologic/Psychiatric: alert, oriented x 3 Skin: normal color, warm/dry (Sulma Sullivan, PA-C) Laboratory Results Last 24 Hours Test 10/12/16 07:00 White Blood Count 16.70 K/uL Red Blood Count 4.54 M/uL Hemoglobin 13.7 g/dL Hematocrit 43.2 % Mean Corpuscular Volume 95.2 fL Mean Corpuscular Hemoglobin 30.2 pg Mean Corpuscular Hemoglobin Concent 31.7 g/dl RDW Standard Deviation 55.5 fL RDW Coefficient of Variation 16.0 % Platelet Count 190 K/uL Mean Platelet Volume 8.4 fL Sodium Level 139 mmol/L Potassium Level 4.3 mmol/L Chloride Level 101 mmol/L Carbon Dioxide Level 31 mmol/L Anion Gap 7.0 mmol/L Blood Urea Nitrogen 12 mg/dl Creatinine 0.91 mg/dl Est Creatinine Clear Calc Drug Dose 69.1 ml/min Estimated GFR () 73.1 Estimated GFR (Non- 63.0 BUN/Creatinine Ratio 13.4 Random Glucose 120 mg/dl Calcium Level 8.3 mg/dl 25-Hydroxy Vitamin D Total < 4.2 ng/ml (Sulma Sullivan, SHAHZAD) Assessment and Plan 71 y/o F Hx COPD, HTN, HPL, polycythemia. Pt fell as she was getting up from a chair and landed on her L hip sustaining an intertrochanteric fracture. She denies any preceding symptoms which may have lead to her fall such as dizziness , CP or palpitations. L intertrochanteric hip fracture POD #1 - Ortho on board- underwent left bipolar hip arthroplasty on 10/11/16 - NPO except meds for now - Analgesia with dilaudid 1 mg Q3H only working temporarily, will add on tylenol around the clock, and percocet 5 mg Q4H, continue gabapentin 600 mg TID - Start bowel regimen with amount of narcotics. Pt is passing gas but no BM yet - Cont IVFs preoperatively, holding HCTZ -can likely resume this upon discharge as it's for as needed basis anyways and BP has been stable. - PT/OT after surgery - Pt plans for home health services after discharge COPD - incentive spirometry requested - cont prescribed inhalers and night-time 02 - Ordered duonebs and mucinex per patient request.- breath sounds are much improved today. - Pt wears supplemental O2 at 2L at night, if she requires increased O2 with ambulation pt will need a new script. Tobacco Use - Cessation discussed at bedside, pt continues to smoke, will order a nicotine replacement patch for her Polycythemia - She had a phlebotomy of 500cc one day prior to admission(10/09). There will be expected blood loss with surgery which she can afford. - Resume ASA today, anticoagulation per Ortho HTN - cont metop succ 25 mg QAM, amlodipine 5 mg QAM - HCTZ 25 mg held pre-op, BP has been stable, can resume upon discharge Hyperlipidemia - cont atorvastatin 20 mg QPM DVT ppx: SCD on right leg, chemical anticoagulation contraindicated due to impending surgical fixation CODE STATUS: Full code Disposition: From home, PT/OT post op, plans for home health services, likely discharge tomorrow (Sulma Sullivan, SHAHZAD) Attending Attestation & Admission Note: Pt seen/examined, chart reviewed, and care plan d/w KATARINA Sullivan. I agree w/ the ng components of her documentation. Pt had "rough" afternoon. "I don't feel good" Febrile to 39.1 this afternoon Poor appetite today Some confusion VSS afebrile gen - obese, looks sick but nontoxic, slightly groggy but a/o x 3 neck - no JVD heart - RRR, s1, s2, no murmur lungs - mild diffuse wheezes - no changes from prior exam, no rales abd - soft ext - mild edema left ankle, none on right, pulses 2+ b/l A/P: 1. left hip fracture - POD #1 2. COPD - cont O2, scheduled nebs - cxr ordered - r/o pneumonia 3. polycythemia - cbc in am. H/H reasonable at this time. 4. tobacco depen - nicoderm patch. 5. HTN - controlled. 6. fever - cxr, blood cx's, u/a and urine cx, start abx if necessary 7. mild metabolic encephalopathy - likely due to #6 - check vbg to ensure no significant hypercarbia Dedra PERRY MD (Narayan Perry MD)
--- NOTE | 2016-10-12 15:57 | PROGRESS NOTE ---
DATE: 10/12/2016 DATE: 10/12/2016. SUBJECTIVE: A 71-year-old white female postop day 1 from a left cemented bipolar hip arthroplasty for fracture. She is doing pretty well. Some moderate pain in her hip. No other new complaints. No chest pain or shortness of breath. She describes mostly lateral and incisional pain. OBJECTIVE: VITAL SIGNS: Temperature 36.9. Vital signs stable. PHYSICAL EXAMINATION: EXTREMITIES: Examination of the left hip reveals the dressing to be clean, dry and in place. Her leg lengths are equal. Hip is located. She can dorsiflex and plantarflex her foot appropriately. She is neurologically intact. LABORATORY DATA: Hemoglobin 13.7. Hematocrit 43.2. Electrolytes are stable. ASSESSMENT: A 71-year-old white female postop day 1 from a left cemented bipolar hip arthroplasty for fracture. Doing reasonably well. Having some pain but seems to be mostly incision. PLAN: 1. DVT prophylaxis including thigh-high TEDs, SCDs, and we would recommend aspirin for the next 6 weeks twice a day. 2. PT/OT. She can weightbear as tolerated. Left total hip protocol. 3. Pain control. Doing reasonably well with current pain regimen. 4. Medical management as per the medicine service. 5. Disposition. Orthopedically, she is stable. She can likely be discharged at any time after tomorrow as long as her pain is controlled and medically stable. I need to see her back 2 weeks postop. Any orthopedic questions can be directed to me at [phone].
[2016-10-12] MEDS ORDERED: IBUPROFEN 600 MG TAB PO STA (16:28)
--- NOTE | 2016-10-12 17:12 | DIAGNOSTIC IMAGING REPORT ---
SINGLE VIEW CHEST CLINICAL HISTORY: Cough and fever. FINDINGS: An AP, portable, semierect chest radiograph is compared to study dated 10/10/2016 and correlated with chest CT dated 03/04/2014. The examination is degraded by portable technique and patient rotation. The heart is top normal for projection. There is atherosclerotic calcification of the thoracic aorta. The pulmonary vasculature is noncongested. Chronic interstitial thickening is unchanged. Scarring versus atelectasis is present in the right midlung. No airspace consolidation, pleural effusion, or pneumothorax is seen. The skeletal structures are osteopenic. The bony thorax is grossly intact. Degenerative change and mild scoliosis are noted in the thoracic spine. Arthritic change is seen in the shoulders. IMPRESSION: No active disease in the chest. Electronically signed by: Rajesh Gonzalez M.D. 10/12/2016 5:11 PM Dictated Date/Time: 10/12/2016 5:09 PM
[2016-10-12 17:20] LABS: VEN BLOOD GAS BASE EXCESS 7.4 mmol/L; VENOUS BLOOD GAS PCO2 52 mmHg (38.0-50.0); VENOUS BLOOD GAS PO2 27 mmHg
[2016-10-12 17:21] LABS: VEN BLD GAS O2 SATURATION < 60.0 %
[2016-10-12 18:42] LABS: URINE APPEARANCE CLOUDY (CLEAR); URINE BILIRUBIN NEG (NEG); URINE COLOR DK YELLOW; URINE EPITHELIAL CELL AUTO >30 /lpf (0-5); URINE NITRITE NEG (NEG); URINE PH 5.5 (4.5-7.5); URINE SPECIFIC GRAVITY 1.027 (1.000-1.030); UROBILINOGEN NEG (NEG)
[2016-10-12 18:43] LABS: MANUAL MICROSCOPIC REQUIRED? NO; REVIEW REQ? YES
[2016-10-12] MEDS: NORTRIPTYLINE HCL 25 MG CAP PO SCH (21:46)
[2016-10-12] MEDS: DOCUSATE SODIUM/SENNA 50/8.6MG TAB PO SCH (21:46)
[2016-10-12] MEDS: ATORVASTATIN 20 MG TAB PO SCH (21:48)
--- NOTE | 2016-10-12 22:36 | Discharge Instructions ---
Discharge Instructions Date of Service Oct 12, 2016. Admission Reason for Admission: Hip Fracture Discharge Discharge Diagnosis / Problem: Left Hip Replacement for fracture Discharge Goals Goal(s): Decrease discomfort, Improve function, Increase independence, Improve disease control, Therapeutic intervention Activity Recommendations Activity Limitations: per Instructions/Follow-up section (Total Hip Precautions ) Weightbearing Status: Left weightbearing . Instructions / Follow-Up Instructions / Follow-Up ACTIVITY RECOMMENDATIONS: Physical Therapy: * Aggressive physical therapy is not usually needed. You will learn to take care of yourself safely and walk. * Follow the "Hip Precautions Instructions." * In some cases, the licensed master social worker at the hospital will arrange to have a therapist come to your house for the first couple of weeks to help you learn these skills. * You need to practice on your own or with the help of a family member as needed. * When you learn these skills, most of the therapy can be done on your own. Home Exercise: * You were shown a series of exercises in the hospital. Do these exercises three to four times each day including the exercises you were shown in physical therapy. Walking: * Get up and walk several times each day. For the first four weeks, try not to stand or walk for more than one hour at a time. If you do stand or walk for more than one hour, you will not hurt anything, but your leg will likely swell. * As you feel comfortable, you may change from the walker or crutches to a cane and then to independent walking. MEDICATIONS: New Medicine: * You will likely be taking one or more of these medicines: 1. Percocet - Take, as directed, when you need it, every four to six hours to control your pain. 2. Iron Sulfate - Take two times each day for the month after surgery to help you replace the blood lost during surgery. 3. Aspirin - Thins your blood to lessen the chance of forming a blood clot. * The most common side effects of pain medicine and iron are nausea and constipation. If nausea or constipation is too much of a problem or if you have any questions about your new medicines or doses, call [facility] at . We will try to help you manage these issues. VERY IMPORTANT TO READ AND REVIEW" Pain: * The immediate post-operative period after hip replacement surgery is often quite painful. * You are given a prescription for pain medicine. You should take it, as directed, when you need it, especially before physical therapy and before going to bed. Pain that interferes with sleep is very common and can last several months. * You will likely need pain medicine for the first two to four weeks. It will not stop all of the pain. The pain will lessen and as you feel better, you may change to milder pain medicine such as Tylenol. * The most common side effects of pain medicine are nausea and constipation, so don't take more than you need. SPECIAL CARE INSTRUCTIONS: TEDs/Elastic Stockings: * The white elastic stockings help limit swelling and prevent blood clots from forming in your legs. The more you wear them, the more they work. * Wear them for six weeks. Prevention of Infection: * Take antibiotics one hour before any dental cleaning, dental work, urological procedure, gastrointestinal procedure or any invasive surgery in order to prevent your new joint from getting infected. * You may get the antibiotics from the doctor performing the procedure or you may call our office at before and we will call in a prescription to the pharmacy of your choice. Things to Watch For: * Drainage from the incision site that occurs more than one week after your surgery. * Severely increased leg pain or swelling. * Increased redness at the incision site. * Fever above 102 degrees Fahrenheit. * Unusual chest pain or shortness of breath. * Unusual pain or burning with urination. Call [facility] at with any of the above problems or if you have any questions about your medicines or recovery. FOLLOW UP VISIT: Make an appointment to see your doctor for approximately two weeks after surgery for a progress check and staple removal by calling the office at . Current Hospital Diet Patient's current hospital diet: Regular Diet Discharge Diet Recommended Diet: Regular Diet Procedures Procedures Performed: Left Bipolar Hip Hemiarthroplasty Cemented Biomet Pending Studies Studies pending at discharge: no Medical Emergencies . Who to Call and When: Medical Emergencies: If at any time you feel your situation is an emergency, please call [phone] immediately. . Non-Emergent Contact Non-Emergency issues call your: Surgeon . "Provider Documentation" section prepared by Kulwant Mendes. . VTE Core Measure Inpt VTE Proph given/why not?: Other Anticoagulation, T.E.D. Stockings, SCD's
[2016-10-12] MEDS ORDERED: SODIUM CHLORIDE 0.9% 1000ML 1,000 ML IV ONE (23:30)
[2016-10-13] VITALS (10 sets, daily range): BP systolic 99–132; BP diastolic 67–77; PULSE 81–112; TEMP 36.8–36.9; O2SAT 64–97
[2016-10-13] MEDS: CEFTRIAXONE SOD INJ 1 GM in DEXTROSE 5% ADD-VANTAGE 50ML 50 ML IV SCH (00:41)
[2016-10-13] MEDS: NYSTATIN POWDER 15GM BTL EXT SCH ×4 (00:41→21:22)
[2016-10-13] MEDS: SODIUM CHLORIDE 0.9% 1000ML 1,000 ML IV SCH ×3 (00:54→21:27)
[2016-10-13] MEDS: ACETAMINOPHEN 500 MG TAB PO SCH ×3 (05:41→21:29)
[2016-10-13] MEDS ORDERED: POLYETHYLENE (MIRALAX) 17 GM PACK PO SCH (06:00)
[2016-10-13] MEDS: ALBUT/IPRATROP 3MG/0.5MG NEB 3 ML VIAL INH SCH ×4 (07:37→19:08)
[2016-10-13] MEDS: BUDESONIDE/FORMOTEROL FUMARATE 80/4.5 60 PUFFS/INHALER INH SCH ×2 (07:44→21:21)
[2016-10-13] MEDS: MAGNESIUM OXIDE 400 MG TAB PO SCH (07:45)
[2016-10-13] MEDS: GABAPENTIN 600 MG TAB PO SCH ×3 (07:46→21:21)
[2016-10-13] MEDS: POLYETHYLENE (MIRALAX) 17 GM PACK PO SCH (07:47)
[2016-10-13] MEDS: BISACODYL 5 MG TABEC PO SCH ×2 (07:47→21:21)
[2016-10-13] MEDS: NICOTINE 14 MG/24 HR TDSY TD SCH (07:48)
[2016-10-13] MEDS: ASPIRIN/ALUM/MAGNES/CAL CARB 325 MG TAB PO SCH ×2 (07:52→21:21)
[2016-10-13] MEDS: AMLODIPINE BESYLATE 5 MG TAB PO SCH (07:52)
[2016-10-13] MEDS: METOPROLOL SUCC 25MG EXT REL TAB PO SCH (07:52)
[2016-10-13] MEDS: OXYCODONE HCL IR 5 MG TAB (IMMEDIATE RELEASE) PO PRN ×3 (07:54→21:16)
[2016-10-13] MEDS: NYSTATIN SUSP 500,000 U/5 ML UDC PO SCH ×4 (07:54→21:22)
--- NOTE | 2016-10-13 08:05 | PROGRESS NOTE ---
DATE: 10/13/2016 DATE: 10/13/2016. SUBJECTIVE: A 71-year-old white female postop day 2 from a left bipolar hip arthroplasty for fracture. Doing quite a bit better today. Pain has improved. Denies any chest pain or shortness of breath. OBJECTIVE: VITAL SIGNS: Temperature 36.8. Vital signs stable. PHYSICAL EXAMINATION: GENERAL: Reveals a pleasant elderly female. She is sitting up in the bathroom cleaning up when I visited her today. EXTREMITIES: Examination of left hip reveals the wound to be clean, dry and intact. Hip is located. She is neurologically intact. ASSESSMENT: A 71-year-old white female postop day 2 from a left bipolar hip arthroplasty for fracture. She is doing pretty well. Pain is improved today. Hip is located. She is neurologically intact. She did have some fevers but afebrile now. No signs of infection. PLAN: 1. DVT prophylaxis including thigh-high TEDs, SCDs, and aspirin twice a day. 2. PT/OT. She can weightbear as tolerated. Left total hip protocol. 3. Pain control. Doing reasonably well with current pain regimen. 4. Medical management as per the medicine service. 5. Disposition. She is orthopedically stable and acceptable for discharge any time. I need to see her back 2 weeks postop. Any orthopedic questions can be directed to me at [phone]. I will be out of town for the next day or two. I can be reached on that cellphone at any time or talk with my partner Dr. Cheung.
[2016-10-13 10:27] LABS: BUN/CREATININE RATIO 17.9 (10-20); CALCIUM 8.8 mg/dl (8.5-10.1); MAGNESIUM 2.1 mg/dl (1.8-2.4); POTASSIUM 4.4 mmol/L (3.5-5.1)
--- NOTE | 2016-10-13 10:52 | Hospitalist Progress Note ---
Hospitalist Progress Note Date of Service Oct 13, 2016. (Sulma Sullivan PA-C) Subjective Pt evaluation today including: conversation w/ patient, physical exam, chart review, lab review, review of studies Pain: Mild left hip PO Intake: Good Voiding: no voiding problems The patient was seen and examined this morning. Pt reports doing better today than last evening. She spiked a fever last night and was placed on antibiotics for a suspected UTI. She states when her last hip was done, she had similar symptoms and got a UTI at that time as well. She denies feeling feverish, having chills or sweats this morning. She slept overnight. Her appetite is slowly improving. Pt is passing gas, and feels like she needs to have a BM. She is hopeful that she will be able to go home tomorrow. Additional Comments: ROS: 6 point ROS reviewed and otherwise negative. (Sulma Sullivan PA-C) Objective Vital Signs Date Time Temp Pulse Resp B/P (MAP) Pulse Ox O2 Delivery O2 Flow Rate FiO2 10/13/16 08:42 96 10/13/16 07:51 98 99/67 (78) 10/13/16 07:40 Nasal Cannula 2.0 10/13/16 06:59 36.8 90 17 108/71 (83) 96 Nasal Cannula 2.0 10/13/16 00:30 Nasal Cannula 2.0 10/12/16 23:22 36.8 50 18 104/64 (77) 96 Nasal Cannula 2.5 10/12/16 21:54 36.7 10/12/16 20:09 82 16 95 Nasal Cannula 2.0 10/12/16 19:02 37.8 10/12/16 15:56 38.5 10/12/16 15:52 86 16 94 Nasal Cannula 2.0 10/12/16 15:50 37.6 10/12/16 15:47 39.1 104 16 126/75 (92) 93 Nasal Cannula 3.0 10/12/16 15:45 High Flow Oxygen 3.0 Nasal Cannula 10/12/16 15:14 38.1 105 16 97/62 (74) 91 High Flow Oxygen 2.0 Nasal Cannula 10/12/16 12:12 36.9 94 14 110/56 (74) 95 Nasal Cannula 3.0 10/12/16 12:07 88 16 96 Nasal Cannula 2.0 (Sulma Sullivan PA-C) Physical Exam Notes: General Appearance: WD/WN, no apparent distress, + obese, laying in bed Eyes: PERRL, EOMI ENT: hearing grossly normal, pharynx normal Neck: supple, no JVD Respiratory/Chest: + pertinent finding (On 2 L via NC, no wheezing, improved breath sounds throughout, using incentive spirometer) Cardiovascular: no JVD, no murmur, + tachycardia Abdomen: normal bowel sounds, non tender, soft Extremities: non-tender, no calf tenderness, + pertinent finding + pedal edema in the LLE, slightly pitting, improving Neurologic/Psychiatric: alert, oriented x 3 Skin: normal color, warm/dry (Sulma Sullivan PA-C) Laboratory Results Last 24 Hours Test 10/12/16 17:00 10/12/16 18:15 10/13/16 09:51 Venous Blood pH 7.42 Venous Blood Partial Pressure CO2 52 mmHg Venous Blood Partial Pressure O2 27 mmHg Venous Blood HCO3 33 mmol/L Venous Blood Oxygen Saturation < 60.0 % Venous Blood Base Excess 7.4 mmol/L Urine Color DK YELLOW Urine Appearance CLOUDY Urine pH 5.5 Urine Specific [place] 1.027 Urine Protein 1+ Urine Glucose (UA) NEG Urine Ketones TRACE Urine Occult Blood 3+ Urine Nitrite NEG Urine Bilirubin NEG Urine Urobilinogen NEG Urine Leukocyte Esterase LARGE Urine WBC (Auto) >30 /hpf Urine RBC (Auto) 0-4 /hpf Urine Hyaline Casts (Auto) 1-5 /lpf Urine Epithelial Cells (Auto) >30 /lpf Urine Bacteria (Auto) 1+ Urine Yeast (Auto) BUDDING Sodium Level 139 mmol/L Potassium Level 4.4 mmol/L Chloride Level 100 mmol/L Carbon Dioxide Level 32 mmol/L Anion Gap 7.0 mmol/L Blood Urea Nitrogen 18 mg/dl Creatinine 1.00 mg/dl Est Creatinine Clear Calc Drug Dose 62.9 ml/min Estimated GFR () 65.2 Estimated GFR (Non- 56.2 BUN/Creatinine Ratio 17.9 Random Glucose 156 mg/dl Calcium Level 8.8 mg/dl Magnesium Level 2.1 mg/dl (Sulma Sullivan PA-C) Assessment and Plan 71 y/o F Hx COPD, HTN, HPL, polycythemia. Pt fell as she was getting up from a chair and landed on her L hip sustaining an intertrochanteric fracture. She denies any preceding symptoms which may have lead to her fall such as dizziness , CP or palpitations. UTI - Became febrile overnight with Tmax 39.1, she was empirically started on rocephin, would continue this for a 7 day course at least with recent hip surgery. - UA appears dirty, will await culture. - BCx x 2 drawn, await results, likely will having tomorrow and if clear can d/ c home - PT had similar presentation before with her right hip fixation. L intertrochanteric hip fracture POD #2 - Ortho on board- underwent left bipolar hip arthroplasty on 10/11/16 - Pain improved today, cont Analgesia with dilaudid 1 mg Q3H, will add on tylenol around the clock, and percocet 5 mg Q4H, continue gabapentin 600 mg TID - Cont bowel regimen with amount of narcotics. Pt is passing gas but no BM yet - Holding HCTZ -can likely resume this upon discharge as it's for as needed basis anyways and BP has been stable. - PT/OT on board - Pt plans for home health services after discharge, her daughter is going to stay with her for a week or so as well. COPD - incentive spirometry requested - cont prescribed inhalers and night-time 02 - Cont prn duonebs and mucinex per patient request.- breath sounds are much improved today. - Pt wears supplemental O2 at 2L at night, if she requires increased O2 with ambulation pt will need a new script. Tobacco Use - Cessation discussed at bedside, pt continues to smoke, nicotine patch Polycythemia - She had a phlebotomy of 500cc one day prior to admission(10/09). - Hgb stable at 13 - Cont ASA today, anticoagulation per Ortho HTN - cont metop succ 25 mg QAM, amlodipine 5 mg QAM - HCTZ 25 mg held pre-op, BP has been stable, can resume upon discharge Hyperlipidemia - cont atorvastatin 20 mg QPM DVT ppx: SCD on right leg, chemical anticoagulation contraindicated due to impending surgical fixation CODE STATUS: Full code Disposition: From home, PT/OT post op, plans for home health services, likely discharge tomorrow after Bcx return and are negative. (Sulma Sullivan PA-C) Attending Attestation & Admission Note: Pt seen/examined, chart reviewed, and care plan d/w KATARINA Sullivan. I agree w/ the ng components of her documentation except patient IS on DVT proph with aspirin BID. She feels better today no further fever denies dyspnea +flatus left hip pain improved VSS afebrile gen - obese, looks better today neck - no JVD heart - RRR, s1, s2, no murmur lungs - mild wheeze unchanged b/l abd - soft ext - mild edema left ankle, none on right, pulses 2+ b/l A/P: 1. left hip fracture - POD #2 - doing well from ortho standpoint 2. COPD - cont O2, scheduled nebs - cxr w/o pneumonia 3. polycythemia - cbc in am for stability 4. tobacco depen - nicoderm patch 5. HTN - BP meds on hold due to low-normal BP readings - follow 6. fever - likely 2nd to UTI - cont rocephin, follow cultures 7. mild metabolic encephalopathy - resolved wean o2 as tolerated Dedra MONGE MD (Narayan Monge MD)
[2016-10-13] MEDS: NORTRIPTYLINE HCL 25 MG CAP PO SCH (21:21)
[2016-10-13] MEDS: ATORVASTATIN 20 MG TAB PO SCH (21:21)
[2016-10-13] MEDS: DOCUSATE SODIUM/SENNA 50/8.6MG TAB PO SCH (21:21)
[2016-10-14] MEDS: CEFTRIAXONE SOD INJ 1 GM in DEXTROSE 5% ADD-VANTAGE 50ML 50 ML IV SCH (00:13)
[2016-10-14 01:47] VITALS: PULSE 95; O2SAT 91
[2016-10-14] MEDS: OXYCODONE HCL IR 5 MG TAB (IMMEDIATE RELEASE) PO PRN ×3 (03:39→16:12)
[2016-10-14] MEDS: ACETAMINOPHEN 500 MG TAB PO SCH ×2 (06:19→13:28)
[2016-10-14 07:12] VITALS: BP 127/75; PULSE 103; TEMP 36.9; O2SAT 93
[2016-10-14 07:16] VITALS: PULSE 103; O2SAT 92
[2016-10-14] MEDS: ALBUT/IPRATROP 3MG/0.5MG NEB 3 ML VIAL INH SCH (07:16)
[2016-10-14 07:20] VITALS: O2SAT 93
[2016-10-14] MEDS ORDERED: BISACODYL 10 MG SUPP PR PRN (07:45)
[2016-10-14 08:43] LABS: HEMATOCRIT 34.7 % (37-47); MEAN CELL VOLUME 92.5 fL (80-100); MEAN CORPUSCULAR HEMOGLOBIN 29.9 pg (25-34); MEAN CORPUSCULAR HGB CONC 32.3 g/dl (32-36); MEAN PLATELET VOLUME 8.1 fL (7.4-10.4); PLATELET COUNT 181 K/uL (130-400); RED BLOOD COUNT 3.75 M/uL (4.2-5.4); WHITE BLOOD COUNT 11.18 K/uL (4.8-10.8)
[2016-10-14 09:15] LABS: BUN/CREATININE RATIO 15.9 (10-20); CALCIUM 8.4 mg/dl (8.5-10.1); CREATININE 0.76 mg/dl (0.60-1.20); POTASSIUM 3.8 mmol/L (3.5-5.1)
[2016-10-14] MEDS: NYSTATIN POWDER 15GM BTL EXT SCH ×2 (09:52→13:27)
[2016-10-14] MEDS: BUDESONIDE/FORMOTEROL FUMARATE 80/4.5 60 PUFFS/INHALER INH SCH (09:53)
[2016-10-14] MEDS: IPRATROPIUM BROMIDE/ALBUTEROL respimat INH INH SCH ×2 (09:53→13:26)
[2016-10-14] MEDS: POLYETHYLENE (MIRALAX) 17 GM PACK PO SCH (09:54)
[2016-10-14] MEDS: BISACODYL 5 MG TABEC PO SCH (09:54)
[2016-10-14] MEDS: MAGNESIUM OXIDE 400 MG TAB PO SCH (09:54)
[2016-10-14] MEDS: ASPIRIN/ALUM/MAGNES/CAL CARB 325 MG TAB PO SCH (09:54)
[2016-10-14] MEDS: AMLODIPINE BESYLATE 5 MG TAB PO SCH (09:55)
[2016-10-14] MEDS: NYSTATIN SUSP 500,000 U/5 ML UDC PO SCH ×2 (09:55→13:28)
[2016-10-14] MEDS: METOPROLOL SUCC 25MG EXT REL TAB PO SCH (09:55)
[2016-10-14] MEDS: GABAPENTIN 600 MG TAB PO SCH ×2 (09:55→13:28)
[2016-10-14] MEDS: NICOTINE 14 MG/24 HR TDSY TD SCH (09:56)
[2016-10-14] MEDS ORDERED: FLUCONAZOLE 50 MG TAB PO ONE (10:00)
--- NOTE | 2016-10-14 10:58 | PROGRESS NOTE ---
DATE: 10/14/2016 DATE: 10/14/2016. SUBJECTIVE: A 71-year-old white female postop day 3 from a left cemented bipolar hip arthroplasty for fracture. She is doing pretty well. Getting around much better. Pain is controlled. She describes it more of sore and achiness. OBJECTIVE: VITAL SIGNS: Temperature is 36.9. Vital signs stable. PHYSICAL EXAMINATION: GENERAL: Reveals a pleasant elderly female. She was walking from the bathroom to her bed today with a walker, doing quite well. EXTREMITIES: She has just a little bit of bloody drainage on the dressing. Her hip is located. She is neurologically intact. LABORATORY DATA: Hemoglobin 11.2. Hematocrit 34.7. Her white cell count 11.18. Electrolytes are stable. ASSESSMENT: A 71-year-old white female postop day 3 from a left cemented bipolar hip arthroplasty for fracture. She is doing well. Her pain is controlled. She is orthopedically stable and acceptable for discharge. PLAN: 1. DVT prophylaxis including thigh-high TEDs, SCDs, and aspirin twice a day. 2. PT/OT. She can weightbear as tolerated. Left total hip protocol. 3. Pain control. Doing well with current pain regimen. 4. Medical management as per the medicine service. 5. Disposition. She is orthopedically stable and acceptable for discharge at any time medically stable. I need to see her back 2 weeks postop. Any orthopedic questions can be directed to me at [phone].
[2016-10-14 14:43] LABS: URINE APPEARANCE CLEAR (CLEAR); URINE BILIRUBIN NEG (NEG); URINE COLOR YELLOW; URINE NITRITE NEG (NEG); URINE SPECIFIC GRAVITY 1.019 (1.000-1.030); UROBILINOGEN NEG (NEG)
[2016-10-14 14:46] LABS: MANUAL MICROSCOPIC REQUIRED? NO; REVIEW REQ? YES
[2016-10-14 15:19] VITALS: BP 116/77; PULSE 59; TEMP 36.7; O2SAT 92
[2016-10-14] MEDS ORDERED: IPRA1AER2 INH (16:04)
[2016-10-14] MEDS ORDERED: GFNSR600 PO (16:04)
[2016-10-14] MEDS ORDERED: SENN8.6T7 PO (16:04)
[2016-10-14] MEDS ORDERED: MRLP17 PO (16:04)
[2016-10-14] MEDS ORDERED: NYSS5 PO (16:04)
[2016-10-14] MEDS ORDERED: HYDR-4079 PO (16:04)
[2016-10-14] MEDS ORDERED: ASPI325T60 PO (16:04)
[2016-10-14] MEDS ORDERED: NYSP EXT (16:04)
[2016-10-14 16:30] VITALS: BP 116/77; PULSE 59; TEMP 36.7; O2SAT 92
[2016-10-15] MEDS ORDERED: FLUCONAZOLE 100 MG TAB PO SCH (09:00)
--- NOTE | 2016-10-18 11:01 | Discharge Summary ---
Discharge Summary Date of Service Oct 18, 2016. Discharge Summary Admission Date: Oct 11, 2016 at 01:16 Discharge Date: Oct 14, 2016 Discharge Disposition: Home with services Principal Diagnosis: left hip fracture s/p ORIF Problems/Secondary Diagnoses: 1. post-op fever, etiology unclear 2. metabolic encephalopathy - 2nd to fever - resolved 3. COPD 4. tobacco dependence 5. polycythemia 6. probable ALBERT 7. morbid obesity with BMI 38 8. HTN 9. hyperlipidemia 10. spinal stenosis 11. idiopathic neuropathy 12. vitamin D deficiency 13. osteoporosis 14. thrush 15. acute blood loss anemia Immunizations: Have You Had Influenza Vaccine: N/A History of Tetanus Vaccine?: No History of Pneumococcal: No Pneumococcal Date: Dec 31, 2011 History of Hepatitis B Vaccine: Yes Procedures: ORIF of left hip fracture - Kulwant Mendes MD Consultations: orthopedics - Kulwant Mendes MD PT, OT Medication Reconciliation New Medications: Aspirin Buffered (Porfirio Carb-Mag (Tri-Buffered Aspirin) 1 Tab Tab 325 MG PO BID, #60 TAB 0 Refills for prevention of DVT in legs Guaifenesin Ext Rel (Mucinex Ext Rel) 600 Mg Tabcr 600 MG PO Q12 PRN for cough, #30 TABS 0 Refills Ipratropium-Albuterol (Combivent Respimat) 1 Aer Aer 1 PUFFS INH QID, #1 INHALER 2 Refills Nystatin (Nystatin) 5 Ml Susp 5 ML PO QID for 5 Days, #100 ML 0 Refills swish and swallow Nystatin (Nystop) 45 Appln/15 Gm Powd 1 APPLN EXT TID, #1 BTL 1 Refill apply to rash in groin folds for 10 days Polyethylene (Miralax) 17 Gm Pow 17 GM PO DAILY, #1 BTL 1 Refill Sennosides-Docusate Sodium (Senokot S) 1 Tab Tab 2 TAB PO HS, #60 TABS 1 Refill Changed Medications: Hydrocodone/Acetaminophen 10MG/325MG ([place] 10MG/325MG) Tab 1 TAB PO Q6H PRN for Pain, #30 TABS 0 Refills (Changed from: 1.5 TAB; QID; 60) Continued Medications: Amlodipine Besylate (Amlodipine Besylate) 5 Mg Tab 5 MG PO QAM Ascorbic Acid (Vitamin C) 1,000 Mg Tab 1000 MG PO QAM Atorvastatin (Lipitor) 20 Mg Tab 1 TAB PO DAILY for 30 Days, #30 TAB 5 Refills Budesonide/Formoterol Fumarate (Symbicort 80/4.5 Inhaler) Aero 2 PUFFS INH BID, INHALER Fish Oil (Medanales-3) 1 Ea Cap 1 CAP PO DAILY Gabapentin (Neurontin) 300 Mg Cap 600 MG PO TID, 0 Refills Garlic (Garlic) 1,000 Mg Cap 1000 MG PO DAILY Home O2 Therapy (Oxygen) Gas 2 LITERS NA HS Hydrochlorothiazide (Hctz) 25 Mg Tab 25 MG PO DAILY PRN for PRN, TAB Magnesium Oxide (Mag-Ox) 400 Mg Tab 400 MG PO DAILY, TAB Metoprolol Succ (Toprol Xl) (Toprol-Xl) 25 Mg Tabcr 25 MG PO DAILY, #30 TAB Nortriptyline (Pamelor) 25 Mg Cap 25 MG PO HS TAKE ONE TO TWO CAPSULES AT BEDTIME Ocuvite Preservision (Ocuvite Preservision) 1 Tab Tab 1 TAB PO BID, TAB Vitamin E (Vitamin E) 400 Unit Tab 400 UNITS PO DAILY Discontinued Medications: Albuterol Hfa (Ventolin Hfa) 200 Puffs/88095 Mcg Aers 2 PUFFS INH Q6H PRN for SOB/Wheezing, #1 INHALER Aspirin (Aspirin 81) 81 Mg Tab 81 MG PO DAILY Referrals At Discharge Follow up Referrals: Orthopedics Referral - Within 2 Weeks with Kulwant Mendes M.D. Discharge Exam Physical Exam: General Appearance: no apparent distress ENT: + pertinent finding (MMM; thrush nearly resolved) Neck: no JVD Respiratory/Chest: no respiratory distress, no accessory muscle use, + wheezing (mild - b/l ) Cardiovascular: regular rate, rhythm, no gallop, no murmur, normal peripheral pulses Abdomen / GI: normal bowel sounds, non tender, soft, no organomegaly Extremities: + swelling (left thigh; minimal left ankle) Neurologic/Psychiatric: alert, oriented x 3 Skin: + pertinent finding (dressing in place and intact, left hip) Hospital Course HISTORY OF PRESENT ILLNESS: 71yo female with history of COPD, HTN, ongoing tobacco dependence, and polycythemia who presented after she fell out of bed and landed on her LEFT hip sustaining an intertrochanteric fracture. She denied any preceding symptoms which may have led to her fall such as dizziness, chest pain, or palpitations. She had a phlebotomy of 500cc one day prior to admission for her polycythemia. HOSPITAL COURSE: On hospital day #1 the patient underwent ORIF of her left hip fracture by Dr. Kulwant Mendes without incident. Her post-operative course was complicated by very mild COPD symptoms requiring bronchodilators as well as fever to about 101 degrees. While febrile she was mildly confused/encephalopathic. This resolved with return of her temperature to normal. Due to the height of the fever she underwent a septic work-up. Blood cultures remained negative. Chest x-ray failed to show pneumonia. Initial urine culture grew gogo glabrata. This was felt to be a contaminant as her fever resolved without use of appropriate treatment for the gogo. Furthermore, a repeat catheterized urine culture did NOT show any bacterial or fungal growth. She was seen in consult by PT/OT who felt she could return home with home health services, PT, and OT. Her O2 was gradually weaned off and O2 sats in room air with walking on day of discharge were adequate. She had mild acute blood loss anemia with discharge hemoglobin of about 11. She will continue to follow with hematology for her secondary polycythemia. Lastly, she was found to have severe vitamin D deficiency with undetectable level. Ergocalciferol replacement was advised. She will follow-up with Dr. Mendes within 2 weeks of discharge. Total Time Spent: Greater than 30 minutes This includes examination of the patient, discharge planning, medication reconciliation, and communication with other providers. Discharge Instructions Please refer to the electronic Patient Visit Report (Discharge Instructions) for additional information. Follow-Up 1. see Dr. Pelayo within [address] Mendes, orthopedics, within 2 weeks Additional Copies To Jose Pelayo M.D.; Kulwant Mendes M.D.
== END 2016-10-14 17:45 | disposition home health service (06) | DRG 469 ==
LOC: EDBD 22:33 → C.EDA 22:35 → C.MSN 10-11 01:16 → ENRESERV 10-11 01:49
PROVIDERS: ADMIT Internal Medicine; ATTEND Internal Medicine
PROC: 0SRB0J9 Replacement of Left Hip Joint with Synthetic Substitute, Cemented, Open Approach (ICD-10-PCS; principal; 2016-10-11 13:30)
DX: S72.002A Fracture of unspecified part of neck of left femur, initial encounter for closed fracture (principal); G93.41 Metabolic encephalopathy; N39.0 Urinary tract infection, site not specified; I11.9 Hypertensive heart disease without heart failure; D75.1 Secondary polycythemia; I49.3 Ventricular premature depolarization; J44.9 Chronic obstructive pulmonary disease, unspecified; G60.9 Hereditary and idiopathic neuropathy, unspecified; E66.9 Obesity, unspecified; E78.5 Hyperlipidemia, unspecified; G47.33 Obstructive sleep apnea (adult) (pediatric); F17.210 Nicotine dependence, cigarettes, uncomplicated; Z79.899 Other long term (current) drug therapy; Z79.82 Long term (current) use of aspirin; Z96.641 Presence of right artificial hip joint; Z99.81 Dependence on supplemental oxygen; Z68.38 Body mass index [BMI] 38.0-38.9, adult; W18.39XA Other fall on same level, initial encounter; Y92.009 Unspecified place in unspecified non-institutional (private) residence as the place of occurrence of the external cause; Y99.8 Other external cause status

== ENCOUNTER → 2016-12-22 | Outpatient (CLI) | payer BC ==
[~2016-12-22] MED LIST changes: -ASPCH81 PO; +ASPI325T60 PO; -B-COTAB18 PO; +GARL10007 PO; -GARLTAB3 PO; +GFNSR600 PO; +HYDR25TA4 PO; -HYZ/10015 PO; +IPRA1AER2 INH; -MELO15TA3 PO; +MRLP17 PO; +NYSP EXT; +NYSS5 PO; +SENN8.6T7 PO; +VITA1TAB4 PO; -VITA400C15 PO
[2016-12-22 14:11] LABS: BLOOD UREA NITROGEN 12 mg/dl (7-18); BUN/CREATININE RATIO 12.3 (10-20); CALCIUM 10.2 mg/dl (8.5-10.1); CARBON DIOXIDE 36 mmol/L (21-32); CHLORIDE 95 mmol/L (98-107); CREATININE 0.95 mg/dl (0.60-1.20); GLUCOSE 115 mg/dl (70-99); POTASSIUM 4.2 mmol/L (3.5-5.1); SODIUM 136 mmol/L (136-145)
== END | disposition home or self-care (01) ==
LOC: C.LABBC 10:36
PROVIDERS: ATTEND Internal Medicine Geriatric Medicine
DX: R73.9 Hyperglycemia, unspecified (principal); I10 Essential (primary) hypertension; R09.02 Hypoxemia; E83.52 Hypercalcemia; E55.9 Vitamin D deficiency, unspecified

== ENCOUNTER → 2017-02-14 | Outpatient (CLI) | payer BC ==
--- NOTE | 2017-02-14 14:25 | MAMMOGRAPHY REPORT ---
BILATERAL DIGITAL SCREENING MAMMOGRAM TOMOSYNTHESIS WITH CAD: 02/14/2017 TECHNIQUE: Breast tomosynthesis in addition to standard 2D mammography was performed. Current study was also evaluated with a Computer Aided Detection (CAD) system. COMPARISON: Comparison is made to exams dated: 02/14/2016 mammogram, 02/10/2015 mammogram, 4 mammogram, 02/06/2013 mammogram, 02/06/2012 mammogram, and 01/12/2011 mammogram - [facility]. BREAST COMPOSITION: The tissue of both breasts is almost entirely fatty. FINDINGS: No suspicious masses, calcifications, or areas of architectural distortion are noted in ei ther breast. There has been no significant interval change compared to prior exams. IMPRESSION: ACR BI-RADS CATEGORY 1: NEGATIVE There is no mammographic evidence of malignancy. A 1 year screening mammogram is recommended. The pa tient will receive written notification of the results. Approximately 10% of breast cancers are not detected with mammography. A negative mammographic report should not delay biopsy if a clinically suggestive mass is present. Clare Siddiqui M.D. ah/:02/14/2017 12:31:02 [employer]: Krystyna ZUNIGA(R)(M), [facility] letter sent: Normal 1/2 BI-RADS Code: ACR BI-RADS Category 1: Negative
== END | disposition home or self-care (01) ==
LOC: C.MAMM 11:49
PROVIDERS: ATTEND Internal Medicine Geriatric Medicine
DX: Z12.31 Encounter for screening mammogram for malignant neoplasm of breast (principal)

== ENCOUNTER → 2017-04-19 | Outpatient (CLI) | payer BC ==
[2017-04-19 12:03] LABS: BASO % 0.2 %; BASO ABS # 0.02 K/uL (0-0.2); COMPLETE YES; EOS % 0.5 %; HEMATOCRIT 56.1 % (37-47); IG% 0.2 %; LYMPH % 19.1 %; LYMPH ABS # 2.06 K/uL (1.2-3.4); MEAN CELL VOLUME 97.1 fL (80-100); MEAN PLATELET VOLUME 8.8 fL (7.4-10.4); MONO % 5.9 %; NEUT % 74.1 %; PLATELET COUNT 231 K/uL (130-400); RED BLOOD COUNT 5.78 M/uL (4.2-5.4); WHITE BLOOD COUNT 10.79 K/uL (4.8-10.8)
[2017-04-19 12:12] LABS: ESTIMATED AVERAGE GLUCOSE 128 mg/dl; HA1C FLAG Normal (Normal)
[2017-04-19 12:17] LABS: ALT/SGPT 19 U/L (12-78); BLOOD UREA NITROGEN 12 mg/dl (7-18); BUN/CREATININE RATIO 11.8 (10-20); CALCIUM 10.2 mg/dl (8.5-10.1); CARBON DIOXIDE 35 mmol/L (21-32); CHLORIDE 98 mmol/L (98-107); GLUCOSE 106 mg/dl (70-99); POTASSIUM 4.5 mmol/L (3.5-5.1); SODIUM 136 mmol/L (136-145)
[2017-04-19 12:28] LABS: ALB/GLOB RATIO 0.9 (0.9-2); ALKALINE PHOSPHATASE 113 U/L (45-117); AST/SGOT 9 U/L (15-37); CHOLESTEROL 147 mg/dl (0-200); CHOLESTEROL/HDL RATIO 3.3; HDL CHOLESTEROL 45 mg/dl; LDL CHOLESTEROL CALCULATED 71 mg/dl; TRIGLYCERIDES 157 mg/dl (0-150); VERY LOW DENSITY LIPOPROT CALC 31 mg/dl
== END | disposition home or self-care (01) ==
LOC: C.LAB 10:07
PROVIDERS: ATTEND Internal Medicine Geriatric Medicine
DX: E78.5 Hyperlipidemia, unspecified (principal); R73.9 Hyperglycemia, unspecified; K76.0 Fatty (change of) liver, not elsewhere classified; D75.1 Secondary polycythemia; I10 Essential (primary) hypertension; E83.52 Hypercalcemia

== ENCOUNTER → 2017-05-14 | Outpatient (CLI) | payer BC ==
[~2017-05-14] MED LIST changes: -ASPI325T60 PO; -NYSS5 PO
[2017-05-14 12:38] LABS: BASO % 0.3 %; BASO ABS # 0.03 K/uL (0-0.2); EOS % 1.1 %; EOS ABS # 0.12 K/uL (0-0.5); HEMOGLOBIN 16.9 g/dL (12.0-16.0); IG# 0.02 K/uL (0.00-0.02); LYMPH % 21.4 %; LYMPH ABS # 2.41 K/uL (1.2-3.4); MEAN CELL VOLUME 97.7 fL (80-100); MEAN CORPUSCULAR HEMOGLOBIN 32.4 pg (25-34); MEAN CORPUSCULAR HGB CONC 33.1 g/dl (32-36); MEAN PLATELET VOLUME 9.1 fL (7.4-10.4); MONO % 6.3 %; MONO ABS # 0.71 K/uL (0.11-0.59); NEUT % 70.7 %; NEUT ABS # 7.99 K/uL (1.4-6.5); PLATELET COUNT 276 K/uL (130-400); RED CELL DISTRIBUTION WIDTH CV 14.6 % (11.5-14.5); RED CELL DISTRIBUTION WIDTH SD 52.2 fL (36.4-46.3); WHITE BLOOD COUNT 11.28 K/uL (4.8-10.8)
== END | disposition home or self-care (01) ==
LOC: C.LABBFT 09:39
PROVIDERS: ATTEND Internal Medicine Geriatric Medicine
DX: D75.1 Secondary polycythemia (principal)

== ENCOUNTER → 2017-06-14 | Outpatient (CLI) | payer BC ==
--- NOTE | 2017-06-22 12:27 | CODING QUERY MEDICAL NECESSITY ---
SUPPORTING DIAGNOSIS NEEDED A supporting diagnosis is required for the test/procedure performed on this patient in order for us to be reimbursed by the patient's insurance. Please provide a supporting diagnosis for the following test/procedure listed below next to the test name along with your signature. *If there is no additional diagnosis for this patient that would support the following test/procedure please document that below next to the test/procedure. Test(s)/Procedure(s) that require a supporting diagnosis: DOS: 06/14/17 * DXA, BONE DENSITY AXIAL DIAGNOSIS: Provider Signature: Date: Thank you Olya Brannon [employer] Information Management Once completed, please kindly fax back to [phone] For questions please call [phone]
== END | disposition home or self-care (01) ==
LOC: C.MAMM 10:19
PROVIDERS: ATTEND Internal Medicine Geriatric Medicine
DX: S72.009A Fracture of unspecified part of neck of unspecified femur, initial encounter for closed fracture (principal); E55.9 Vitamin D deficiency, unspecified; X58.XXXA Exposure to other specified factors, initial encounter

== ENCOUNTER → 2017-07-30 | Outpatient (CLI) | payer BC ==
[2017-07-30 16:36] LABS: HEMATOCRIT 46.2 % (37-47); HEMOGLOBIN 15.2 g/dL (12.0-16.0); MEAN CELL VOLUME 97.1 fL (80-100); MEAN CORPUSCULAR HEMOGLOBIN 31.9 pg (25-34); MEAN CORPUSCULAR HGB CONC 32.9 g/dl (32-36); MEAN PLATELET VOLUME 8.7 fL (7.4-10.4); PLATELET COUNT 271 K/uL (130-400); RED CELL DISTRIBUTION WIDTH CV 14.3 % (11.5-14.5); WHITE BLOOD COUNT 11.82 K/uL (4.8-10.8)
[2017-07-30 16:48] LABS: BLOOD UREA NITROGEN 18 mg/dl (7-18); CALCIUM 9.9 mg/dl (8.5-10.1); CARBON DIOXIDE 33 mmol/L (21-32); CREATININE 1.15 mg/dl (0.60-1.20); GLUCOSE 113 mg/dl (70-99); POTASSIUM 4.4 mmol/L (3.5-5.1); SODIUM 139 mmol/L (136-145)
== END | disposition home or self-care (01) ==
LOC: C.LABBFT 11:27
PROVIDERS: ATTEND Internal Medicine Geriatric Medicine
DX: D58.2 Other hemoglobinopathies (principal); I10 Essential (primary) hypertension

== ENCOUNTER 2018-09-25 15:50 | Inpatient (IN) ==
[2018-09-25] MEDS ORDERED: SODIUM CHLORIDE 0.9% 1000ML 1,000 ML IV ONE (16:14)
[2018-09-25] MEDS ORDERED: ALBUT/IPRATROP 3MG/0.5MG NEB 3 ML VIAL NEB STA (16:14)
[2018-09-25] MEDS ORDERED: ACETAMINOPHEN 500 MG TAB PO STA (16:14)
--- NOTE | 2018-09-25 16:37 | XRay Report ---
SINGLE VIEW CHEST CLINICAL HISTORY: Sepsis. FINDINGS: An AP, portable, upright chest radiograph is compared to study dated 10/12/2016 and correlat ed with chest CT dated 03/04/2014. The examination is degraded by portable technique and patient rota tion. The heart is top normal for projection and there is atherosclerotic calcification of the thora cic aorta. Chronic interstitial thickening is similar to previous. There are airspace opacities at le ft lung base. The right lung appears clear. No large pleural effusion or pneumothorax is seen. The sk eletal structures are osteopenic. The bony thorax is grossly intact. Degenerative change and mild sco liosis are noted in the thoracic spine. Arthritic change is seen in the shoulders. IMPRESSION: Dependent airspace opacities at the left lung base likely represent atelectasis. Clinical correlation will required. Electronically signed by: Rajesh Gonzalez M.D. 09/25/2018 4:36 PM
[2018-09-25 16:40] LABS: Base Excess VBG 4.8 mEq/L; HCO3 VBG 31 mmol/L; Oxygen Saturation VBG < 60.0 %; PCO2 VBG 52 mmHg (38-50); PO2 VBG 25 mmHg; pH VBG 7.39 (7.36-7.41)
[2018-09-25 16:43] LABS: Hematocrit (blood only) 43.6 % (37-47); Hemoglobin 15.1 g/dL (12.0-16.0); Mean Corpuscular Hgb Conc 34.6 g/dL (32-36); Mean Corpuscular Volume 93.6 fL (80-100); Mean Platelet Volume 8.4 fL (7.4-10.4); Platelet Count 283 K/uL (130-400); RDW Coefficient of Variation 14.2 % (11.5-14.5); Red Blood Count 4.66 M/uL (4.2-5.4); White Blood Count 27.17 K/uL (4.8-10.8)
[2018-09-25] MEDS ORDERED: PIPERACILL/TAZOBAC CONSULT ACTIVE PRN ×2 (16:46→19:20)
[2018-09-25] MEDS ORDERED: PIPERACILLIN/TAZOBACTAM 4.5 GM/120 ML BAG IV ONE (16:46)
[2018-09-25 16:54] LABS: Partial Thromboplastin Ratio 0.9; Partial Thromboplastin Time 24.5 Seconds (21.0-31.0); Prothrombin Time 10.3 Seconds (9.0-12.0)
[2018-09-25 17:02] LABS: Basophils # (auto) 0.03 K/uL (0-0.2); Basophils % (auto) 0.1 %; Immature Granulocytes # (auto) 0.12 K/uL (0.00-0.02); Immature Granulocytes % (auto) 0.4 %; Lymphocytes % (auto) 4.8 %; Monocytes # (auto) 1.19 K/uL (0.11-0.59); Monocytes % (auto) 4.4 %; Neutrophils # (auto) 24.53 K/uL (1.4-6.5); Neutrophils % (auto) 90.3 %; Toxic Vacuolation 1+
[2018-09-25 17:03] LABS: Alanine Aminotransferase 21 U/L (12-78); Albumin Level 3.5 gm/dl (3.4-5.0); Aspartate Aminotransferase 12 U/L (15-37); BUN Creatinine Ratio 16.9 (10-20); Blood Urea Nitrogen 20 mg/dl (7-18); Carbon Dioxide 31 mmol/L (21-32); Chloride 102 mmol/L (98-107); Creatinine Clr Calc Pharmacy 47.6 ml/min; Est GFR (African American) 53.7; Est GFR (Non-African American) 46.3; Glucose 123 mg/dl (70-99); Magnesium 1.5 mg/dl (1.8-2.4); Potassium 3.6 mmol/L (3.5-5.1); Sodium 138 mmol/L (136-145)
[2018-09-25 17:08] LABS: Albumin Globulin Ratio 0.9 (0.9-2); Alkaline Phosphatase 105 U/L (45-117); Bilirubin,Total 0.4 mg/dl (0.2-1); C Reactive Protein 2.49 mg/dl (0-0.29); Globulin 4.1 gm/dl (2.5-4.0); Total Protein 7.6 gm/dl (6.4-8.2); Troponin I < 0.015 ng/ml (0-0.045)
--- NOTE | 2018-09-25 17:33 | Emergency Department Note ---
Entered by Cady Yadav acting as a scribe for Deandre Rhodes DO History of Present Illness General Chief complaint: Flu Like Symptoms Stated complaint: CHILLS, SICK TO STOMACH, LIGHTHEADED Source: patient Limitations: no limitations History of Present Illness Onset (ago): hour(s) (this morning) Location: head and chest Pain Consistency: + other (persistent ) Maximum Pain Intensity: 6 Quality: + other (SOB) Associated symptoms: + denies other symptoms (urinary symptoms and diarrhea), + cough, + fever/chills, + nausea/vomiting (complains of nausea, denies vomiting) and + other (increased lower extremity swelling); no chest pain Treatments prior to arrival: none The patient is a 73 year old female who presents to the ED with complaints of a persistent SOB that began this morning. She states that she noticed the symptoms this morning when she was visiting her at the hospital. The patient complains of fevers/chills, nausea, minor cough, and increased lower extremity swelling. She denies any vomiting, chest pain, urinary symptoms, and diarrhea. She notes that she was O2 NC at night for her history of COPD. The patient denies any treatments [employer]. She notes that she had a flu shot this year. The patient denies any recent travel. Home Medications Home Medications Medication Instructions Recorded Confirmed Type amlodipine 5 mg PO QAM 09/25/18 09/25/18 History ascorbic acid (vitamin C) 1 g PO QAM 09/25/18 09/25/18 History atorvastatin 20 mg PO QAM 09/25/18 09/25/18 History budesonide-formoterol [Symbicort] 2 puff INHALATION BID 09/25/18 09/25/18 History gabapentin 300 mg PO HS 09/25/18 09/25/18 History garlic 1,000 mg PO QAM 09/25/18 09/25/18 History guaifenesin [Mucinex] 600 mg PO Q12H PRN 09/25/18 09/25/18 History hydrochlorothiazide 25 mg PO QAM 09/25/18 09/25/18 History hydrocodone-acetaminophen 1 tab PO Q6H PRN 09/25/18 09/25/18 History metoprolol succinate 25 mg PO QAM 09/25/18 09/25/18 History nortriptyline 25 mg PO QAM 09/25/18 09/25/18 History nystatin 1 applic TOPICAL TID 09/25/18 09/25/18 History omega 3-rsd-zqb-fish oil [[place]-3] 1 cap PO QAM 09/25/18 09/25/18 History polyethylene glycol 3350 17 g PO DAILY 09/25/18 09/25/18 History vitamin E 400 unit PO QAM 09/25/18 09/25/18 History vitamins A,C,G-qlil-lcycit 1 tab PO BID 09/25/18 09/25/18 History [PreserVision AREDS] Allergies Allergy/AdvReac Type Severity Reaction Status Date / Time bacitracin Allergy Unknown EMACERATION Verified 09/25/18 17:27 SKIN AT SITE neomycin Allergy Unknown EMACERATION Verified 09/25/18 17:27 SKIN AT SITE polymyxin B Allergy Unknown EMACERATION Verified 09/25/18 17:27 SKIN AT SITE bupropion AdvReac Severe lips Verified 09/25/18 17:27 swelling Aminoglycosides AdvReac Intermediate Verified 09/25/18 17:27 Past Med/Surg History Medical History DNR (do not resuscitate) DVT prophylaxis Acute on chronic respiratory failure (Acute) COPD exacerbation (Acute) Pneumonia (Acute) Polycythemia (Chronic) Hypertension (Chronic) PVC (premature ventricular contraction) (Chronic) Hip fracture Social History Preferred Language: [place]an Communication Ability: Effective Stitch Rubber Required: No Beliefs That Will Affect Care: Christian Christian Beliefs: buddhist Current Living Situation: Spouse Other Information That Helps Us Care for You: No Feels Safe at Home: Yes Safety Concerns: Feels Safe At This Time Smoking Status: Current every day smoker Tobacco Type: cigarettes Do You Dip or Chew Tobacco: No Hx Alcohol Use: No Hx Substance Use: No Review of Systems See HPI for pertinent positives & negatives. and A total of 10 systems reviewed and were otherwise negative Physical Exam Vital Signs Vital Signs - 24 hr 09/25/18 15:57 09/25/18 16:20 09/25/18 16:36 Temperature 37.4 C Temperature Source Oral Sepsis Recent Fever Within 48 Hours No Sepsis New/Unexplained Change in Mental Status No Sepsis Action Taken by Nursing No Action Required Pulse Rate 93 H 103 H Pulse Rate from SpO2 Sensor Respiratory Rate 20 20 Respiratory Effort / Characteristics Non-Labored Spontaneous Non-Labored Spontaneous Respiratory Depth Normal Respiratory Pattern Regular Blood Pressure 114/64 Blood Pressure Mean 80 Blood Pressure Position Sitting Pulse Oximetry 87 L 90 92 Oxygen Delivery Method Room Air Nasal Cannula Nasal Cannula Oxygen Flow Rate 4 2 09/25/18 16:40 09/25/18 16:45 09/25/18 16:46 Temperature Temperature Source Sepsis Recent Fever Within 48 Hours Sepsis New/Unexplained Change in Mental Status Sepsis Action Taken by Nursing Pulse Rate 109 H 107 H 107 H Pulse Rate from SpO2 Sensor 97 H 91 H 94 H Respiratory Rate 14 21 24 Respiratory Effort / Characteristics Respiratory Depth Respiratory Pattern Blood Pressure 126/65 119/68 Blood Pressure Mean 85 85 Blood Pressure Position Pulse Oximetry 90 90 90 Oxygen Delivery Method Oxygen Flow Rate 4 4 4 09/25/18 17:00 09/25/18 17:15 09/25/18 17:16 Temperature Temperature Source Sepsis Recent Fever Within 48 Hours Sepsis New/Unexplained Change in Mental Status Sepsis Action Taken by Nursing Pulse Rate 111 H 111 H 112 H Pulse Rate from SpO2 Sensor 112 H 105 H 109 H Respiratory Rate 12 16 19 Respiratory Effort / Characteristics Respiratory Depth Respiratory Pattern Blood Pressure 125/66 129/70 Blood Pressure Mean 85 89 Blood Pressure Position Pulse Oximetry 89 L 92 89 L Oxygen Delivery Method Oxygen Flow Rate 4 4 4 09/25/18 17:30 09/25/18 17:31 09/25/18 17:45 Temperature Temperature Source Sepsis Recent Fever Within 48 Hours Sepsis New/Unexplained Change in Mental Status Sepsis Action Taken by Nursing Pulse Rate 106 H 110 H 113 H Pulse Rate from SpO2 Sensor 95 H 111 H 114 H Respiratory Rate 19 18 Respiratory Effort / Characteristics Respiratory Depth Respiratory Pattern Blood Pressure 113/63 121/86 Blood Pressure Mean 79 97 Blood Pressure Position Pulse Oximetry 88 L 90 91 Oxygen Delivery Method Oxygen Flow Rate 4 4 09/25/18 17:46 09/25/18 17:47 09/25/18 18:00 Temperature 37.6 C H Temperature Source Oral Sepsis Recent Fever Within 48 Hours Sepsis New/Unexplained Change in Mental Status Sepsis Action Taken by Nursing Pulse Rate 113 H 111 H Pulse Rate from SpO2 Sensor 114 H 105 H Respiratory Rate 24 17 Respiratory Effort / Characteristics Respiratory Depth Respiratory Pattern Blood Pressure 121/85 Blood Pressure Mean 97 Blood Pressure Position Pulse Oximetry 91 94 Oxygen Delivery Method Oxygen Flow Rate 09/25/18 18:01 09/25/18 18:15 Temperature Temperature Source Sepsis Recent Fever Within 48 Hours Sepsis New/Unexplained Change in Mental Status Sepsis Action Taken by Nursing Pulse Rate 110 H 108 H Pulse Rate from SpO2 Sensor 107 H 96 H Respiratory Rate 17 Respiratory Effort / Characteristics Respiratory Depth Respiratory Pattern Blood Pressure 100/51 L Blood Pressure Mean 67 Blood Pressure Position Pulse Oximetry 93 93 Oxygen Delivery Method Oxygen Flow Rate GENERAL: Patient is awake, alert, and in no acute distress.Patient is mildly anxious. She appears to be comfortable overall. EYES: The conjunctivae are clear. The pupils are round and reactive. EARS, NOSE, MOUTH AND THROAT: The nose is without any evidence of any deformity. Mucous membranes are dry.Tongue is midline NECK: The neck is nontender and supple. RESPIRATORY: Diminished breath sounds in the left lung field. Significant rhonchi were noted throughout. No tachypnea appreciated. CARDIOVASCULAR: Regular rate and rhythm noted. There no murmurs rubs or gallops normal S1 normal S2 GASTROINTESTINAL: The abdomen is soft. Bowel sounds are present in all quadrants. Abdomen is nontender. MUSCULOSKELETAL/EXTREMITIES: There is no evidence of gross deformity. Full range of motion is noted in the hips and shoulders. SKIN: There is no obvious evidence of any rash. There are no petechiae, pallor or cyanosis noted. Skin is warm and dry. Pulses are symmetric in both feet. Trace pedal edema bilaterally. NEUROLOGIC: Patient is awake alert and oriented x3. Strength is symmetric. Patellar reflexes are 2+ bilaterally. Course 1608: The patient was evaluated in room C12B. A complete history and physical exam was performed. 1716: I updated the patient on her results. 1723: I spoke with Dr. Rome, [facility] hospitalist, about the patients case. He will further evaluate the patient. Consultations Consultation #1: I spoke with Dr. Rome, [facility] hospitalist, about the patients case. He will further evaluate the patient. Time: 17:23 Administered Medications Hydrocodone Bitart/Acetaminophen ([place] 10/325) 1 tab PO Q6H PRN PRN Reason: Pain Stop: 10/09/18 19:19 Last Admin: 09/25/18 23:43 Dose: 1 tab Documented by: [id number] Arformoterol Tartrate (Brovana Neb) 15 mcg INH BIDR [facility] Stop: 10/25/18 19:59 Last Admin: 09/25/18 21:01 Dose: 15 mcg Documented by: [id number] Budesonide (Pulmicort Respules) 0.5 mg NEB BIDR [facility] Stop: 10/25/18 19:59 Last Admin: 09/25/18 21:01 Dose: 0.5 mg Documented by: [id number] Enoxaparin Sodium (Lovenox) 40 mg SQ Q24H [facility] Stop: 10/25/18 20:59 Last Admin: 09/25/18 22:19 Dose: Not Given Documented by: [id number] Gabapentin (Neurontin) 300 mg PO HS [facility] Stop: 10/25/18 20:59 Last Admin: 09/25/18 20:35 Dose: 300 mg Documented by: [id number] Guaifenesin (Mucinex) 600 mg PO Q12H [facility] Stop: 10/25/18 19:19 Last Admin: 09/25/18 20:35 Dose: 600 mg Documented by: [id number] Sodium Chloride (Nss 1000ml) 1,000 mls @ 75 mls/hr IV .[id number] [facility] Stop: 10/25/18 19:19 Last Admin: 09/25/18 20:35 Dose: 75 mls/hr Documented by: [id number] Methylprednisolone 40 mg/ (Syringe) 0.64 mls @ 1.5 mls/min IV Q8H [facility] Stop: 10/25/18 20:59 Last Admin: 09/25/18 20:34 Dose: 1.5 mls/min Documented by: [id number] Piperacillin Sod/Tazobactam (Sod 4.5 gm/ Dextrose) 120 mls @ 28.75 mls/hr IV Q8H [facility]; Protocol Stop: 10/02/18 21:59 Last Admin: 09/25/18 22:17 Dose: 28.8 mls/hr Documented by: [id number] Nicotine (Nicoderm Cq) 7 mg TD QAM [facility] Stop: 10/25/18 21:44 Last Admin: 09/25/18 22:20 Dose: Not Given Documented by: [id number] Nystatin (Mycostatin) 1 appln EXT TID [facility] Stop: 10/25/18 20:59 Last Admin: 09/25/18 20:36 Dose: 1 appln Documented by: [id number] Discontinued Medications Acetaminophen (Tylenol) 1,000 mg PO NOW STA Stop: 09/25/18 16:15 Last Admin: 09/25/18 16:42 Dose: 1,000 mg Documented by: [id number] Albuterol (Duoneb) 3 ml NEB NOW STA Stop: 09/25/18 16:15 Last Admin: 09/25/18 16:35 Dose: 3 ml Documented by: [id number] Sodium Chloride (Nss 1000ml) 1,000 mls @ 999 mls/hr IV .Q1H1M ONE Stop: 09/25/18 17:14 Last Infusion: 09/25/18 17:43 Dose: 0 mls/hr Documented by: [id number] Admin: 09/25/18 16:42 Dose: 999 mls/hr Documented by: [id number] Piperacillin Sod/Tazobactam Sod (Zosyn) 4.5 gm in 120 mls @ 240 mls/hr IV NOW ONE Stop: 09/25/18 17:15 Last Infusion: 09/25/18 17:51 Dose: 0 mls/hr Documented by: [id number] Admin: 09/25/18 17:15 Dose: 240 mls/hr Documented by: [id number] Medical Decision Making Differential Diagnosis Etiologies such as infections, reactive airway disease, COPD, pneumonia, pleural effusion, pulmonary edema, ARDS, pneumothorax, CHF, cardiac ischemia, cardiac tamponade, dysrhythmia, anemia, pulmonary embolism, musculoskeletal, gastrointestinal process, as well as others were entertained. Medical Records Attestation: I reviewed the patient's medical records. Home Medications Current Medication List: was personally reviewed by me Laboratory Data Attestation: I reviewed the patient's lab results. Result diagrams: 09/25/18 16:22 09/25/18 16:22 Lab Results 09/25/18 09/25/18 09/25/18 Range/Units 16:22 16:22 16:22 WBC 27.17 H (4.8-10.8) K/uL RBC 4.66 (4.2-5.4) M/uL Hgb 15.1 (12.0-16.0) g/dL Hct 43.6 (37-47) % MCV 93.6 (80-100) fL MCH 32.4 (25-34) pg MCHC 34.6 (32-36) g/dL RDW Std Deviation 48.0 H (36.4-46.3) fL RDW Coeff of Deana 14.2 (11.5-14.5) % Plt Count 283 (130-400) K/uL MPV 8.4 (7.4-10.4) fL Immature Gran % (Auto) 0.4 % Neut % (Auto) 90.3 % Lymph % (Auto) 4.8 % [place] % (Auto) 4.4 % Eos % (Auto) 0.0 % Baso % (Auto) 0.1 % Immature Gran # (Auto) 0.12 H (0.00-0.02) K/uL Neut # (Auto) 24.53 H (1.4-6.5) K/uL Lymph # (Auto) 1.30 (1.2-3.4) K/uL [place] # (Auto) 1.19 H (0.11-0.59) K/uL Eos # (Auto) 0.00 (0-0.5) K/uL Baso # (Auto) 0.03 (0-0.2) K/uL Toxic Vacuolation 1+ ESR 55 H (0-21) mm/hr PT 10.3 (9.0-12.0) Seconds INR 1.0 (0.9-1.1) APTT 24.5 (21.0-31.0) Seconds PTT Ratio 0.9 VBG pH (7.36-7.41) VBG pCO2 (38-50) mmHg VBG pO2 mmHg VBG HCO3 mmol/L VBG O2 Saturation % VBG Base Excess mEq/L Barometric Pressure mm/Hg Sodium (136-145) mmol/L Potassium (3.5-5.1) mmol/L Chloride (98-107) mmol/L Carbon Dioxide (21-32) mmol/L Anion Gap (3-11) BUN (7-18) mg/dl Creatinine (0.6-1.2) mg/dl Est Cr Clr Drug Dosing ml/min Est GFR ( Amer) Est GFR (Non-Af Amer) BUN/Creatinine Ratio (10-20) Glucose (70-99) mg/dl Lactate (0.4-2.0) mmol/L Calcium (8.5-10.1) mg/dl Magnesium (1.8-2.4) mg/dl Total Bilirubin (0.2-1) mg/dl AST (15-37) U/L ALT (12-78) U/L Alkaline Phosphatase (45-117) U/L Troponin I (0-0.045) ng/ml C-Reactive Protein (0-0.29) mg/dl Total Protein (6.4-8.2) gm/dl Albumin (3.4-5.0) gm/dl Globulin (2.5-4.0) gm/dl Albumin/Globulin Ratio (0.9-2) Procalcitonin (0-0.5) ng/ml Hepatitis C Ab Screen (Neg) 09/25/18 09/25/18 09/25/18 Range/Units 16:22 16:22 16:22 WBC (4.8-10.8) K/uL RBC (4.2-5.4) M/uL Hgb (12.0-16.0) g/dL Hct (37-47) % MCV (80-100) fL MCH (25-34) pg MCHC (32-36) g/dL RDW Std Deviation (36.4-46.3) fL RDW Coeff of Deana (11.5-14.5) % Plt Count (130-400) K/uL MPV (7.4-10.4) fL Immature Gran % (Auto) % Neut % (Auto) % Lymph % (Auto) % [place] % (Auto) % Eos % (Auto) % Baso % (Auto) % Immature Gran # (Auto) (0.00-0.02) K/uL Neut # (Auto) (1.4-6.5) K/uL Lymph # (Auto) (1.2-3.4) K/uL [place] # (Auto) (0.11-0.59) K/uL Eos # (Auto) (0-0.5) K/uL Baso # (Auto) (0-0.2) K/uL Toxic Vacuolation ESR (0-21) mm/hr PT (9.0-12.0) Seconds INR (0.9-1.1) APTT (21.0-31.0) Seconds PTT Ratio VBG pH (7.36-7.41) VBG pCO2 (38-50) mmHg VBG pO2 mmHg VBG HCO3 mmol/L VBG O2 Saturation % VBG Base Excess mEq/L Barometric Pressure mm/Hg Sodium 138 (136-145) mmol/L Potassium 3.6 (3.5-5.1) mmol/L Chloride 102 (98-107) mmol/L Carbon Dioxide 31 (21-32) mmol/L Anion Gap 5.0 (3-11) BUN 20 H (7-18) mg/dl Creatinine 1.16 (0.6-1.2) mg/dl Est Cr Clr Drug Dosing 47.6 ml/min Est GFR ( Amer) 53.7 Est GFR (Non-Af Amer) 46.3 BUN/Creatinine Ratio 16.9 (10-20) Glucose 123 H (70-99) mg/dl Lactate (0.4-2.0) mmol/L Calcium 10.0 (8.5-10.1) mg/dl Magnesium 1.5 L (1.8-2.4) mg/dl Total Bilirubin 0.4 (0.2-1) mg/dl AST 12 L (15-37) U/L ALT 21 (12-78) U/L Alkaline Phosphatase 105 (45-117) U/L Troponin I < 0.015 (0-0.045) ng/ml C-Reactive Protein 2.49 H (0-0.29) mg/dl Total Protein 7.6 (6.4-8.2) gm/dl Albumin 3.5 (3.4-5.0) gm/dl Globulin 4.1 H (2.5-4.0) gm/dl Albumin/Globulin Ratio 0.9 (0.9-2) Procalcitonin 0.17 (0-0.5) ng/ml Hepatitis C Ab Screen Neg (Neg) 09/25/18 09/25/18 Range/Units 16:25 16:25 WBC (4.8-10.8) K/uL RBC (4.2-5.4) M/uL Hgb (12.0-16.0) g/dL Hct (37-47) % MCV (80-100) fL MCH (25-34) pg MCHC (32-36) g/dL RDW Std Deviation (36.4-46.3) fL RDW Coeff of Deana (11.5-14.5) % Plt Count (130-400) K/uL MPV (7.4-10.4) fL Immature Gran % (Auto) % Neut % (Auto) % Lymph % (Auto) % [place] % (Auto) % Eos % (Auto) % Baso % (Auto) % Immature Gran # (Auto) (0.00-0.02) K/uL Neut # (Auto) (1.4-6.5) K/uL Lymph # (Auto) (1.2-3.4) K/uL [place] # (Auto) (0.11-0.59) K/uL Eos # (Auto) (0-0.5) K/uL Baso # (Auto) (0-0.2) K/uL Toxic Vacuolation ESR (0-21) mm/hr PT (9.0-12.0) Seconds INR (0.9-1.1) APTT (21.0-31.0) Seconds PTT Ratio VBG pH 7.39 (7.36-7.41) VBG pCO2 52 H (38-50) mmHg VBG pO2 25 mmHg VBG HCO3 31 mmol/L VBG O2 Saturation < 60.0 % VBG Base Excess 4.8 mEq/L Barometric Pressure 726.3 mm/Hg Sodium (136-145) mmol/L Potassium (3.5-5.1) mmol/L Chloride (98-107) mmol/L Carbon Dioxide (21-32) mmol/L Anion Gap (3-11) BUN (7-18) mg/dl Creatinine (0.6-1.2) mg/dl Est Cr Clr Drug Dosing ml/min Est GFR ( Amer) Est GFR (Non-Af Amer) BUN/Creatinine Ratio (10-20) Glucose (70-99) mg/dl Lactate 2.0 (0.4-2.0) mmol/L Calcium (8.5-10.1) mg/dl Magnesium (1.8-2.4) mg/dl Total Bilirubin (0.2-1) mg/dl AST (15-37) U/L ALT (12-78) U/L Alkaline Phosphatase (45-117) U/L Troponin I (0-0.045) ng/ml C-Reactive Protein (0-0.29) mg/dl Total Protein (6.4-8.2) gm/dl Albumin (3.4-5.0) gm/dl Globulin (2.5-4.0) gm/dl Albumin/Globulin Ratio (0.9-2) Procalcitonin (0-0.5) ng/ml Hepatitis C Ab Screen (Neg) Imaging Data Radiologist's Impression: Radiology results as stated below per my review and the radiologist's interpretation: SINGLE VIEW CHEST CLINICAL HISTORY: Sepsis. FINDINGS: An AP, portable, upright chest radiograph is compared to study dated 10/12/2016 and correlated with chest CT dated 03/04/2014. The examination is degraded by portable technique and patient rotation. The heart is top normal for projection and there is atherosclerotic calcification of the thoracic aorta. Chronic interstitial thickening is similar to previous. There are airspace opacities at left lung base. The right lung appears clear. No large pleural effusion or pneumothorax is seen. The skeletal structures are osteopenic. The bony thorax is grossly intact. Degenerative change and mild scoliosis are noted in the thoracic spine. Arthritic change is seen in the shoulders. IMPRESSION: Dependent airspace opacities at the left lung base likely represent atelectasis. Clinical correlation will required. Electronically signed by: Rajesh Gonzalez M.D. 09/25/2018 4:36 PM ECG Data Attestation: I personally reviewed and interpreted this ECG as follows: Indication: SOB/dyspnea Rate (beats per minute): 109 Rhythm: sinus tachycardia Findings: + other (no acute ST segment abnormality), + PVC and + T-wave inversion (Lateral) Comparison ECG Date: from (10/10/2016) Change: no significant change Blood Pressure Blood Pressure Findings: Low blood pressure MDM Narrative The patient is a 73-year-old female who presented to the emergency department from visiting her who is currently an inpatient in the ICU. The patient started to notice chills. She has had a slight cough. She was found to be hypoxic with abnormal lung sounds on physical exam. The patient was treated with IV fluids as well as IV antibiotics for presumed pneumonia. The patient's white blood cell count was very elevated. She has no abdominal tenderness. I discussed the patient's laboratory and radiographic studies with her. She was feeling much better on subsequent reevaluation. Because of her vital signs I discussed her case with the on-call [facility] hospitalist group. They have agreed to evaluate the patient in the emergency department for further management and disposition. Impression & Plan Pneumonia, Hypoxia, Fever Discharge Plan Visit Data *Final* Discharge Date/Time: 09/25/18 18:43 Chief Complaint: Flu Like Symptoms Stated Complaint: CHILLS, SICK TO STOMACH, LIGHTHEADED ED Provider: Deandre Rhodes Discharge Problem: Pneumonia, Hypoxia, Fever Patient Disposition: Admitted As Inpatient Discharge Instructions Interventions: ED Discharge Assessment Last Done: 09/25/18 18:43 Discharge Problem: Pneumonia Qualifiers: Pneumonia type: due to unspecified organism Laterality: unspecified laterality Lung location: unspecified part of lung Qualified Code(s): J18.9 - Pneumonia, unspecified organism Fever Qualifiers: Fever type: unspecified Qualified Code(s): R50.9 - Fever, unspecified The scribe's documentation has been prepared under my direction and personally reviewed by me in its entirety. I confirm that the note above accurately reflects all work, treatment, procedures, and medical decision making performed by me.
--- NOTE | 2018-09-25 18:03 | History & Physical Report ---
Date of Service September 25, 2018 Assessment & Plan (1) Pneumonia: Left lower lobe. Probably community-acquired. Continue intravenous Zosyn. Obtain sputum for sputum culture if it is produced. Present on Admission?: Yes (2) COPD exacerbation: Arformoterol and budesonide nebulizer treatments. Intravenous Solu- Medrol. Treat underlying pneumonia Present on Admission?: Yes (3) Acute on chronic respiratory failure: Oxygen by nasal cannula to maintain saturation greater than 90%. Wean off as tolerated Present on Admission?: Yes (4) Hypertension: Treated with amlodipine, Toprol-XL, hydrochlorothiazide. Diuretic is on hold (5) DVT prophylaxis: Lovenox subcu (6) DNR (do not resuscitate): Per patient wishes History of Present Illness Chief Complaint: Chills, malaise, shortness of breath, wheezing, nausea Primary Care Provider: Sherry Syed MD 73-year-old female with oxygen dependent COPD who was visiting her in the intensive care unit today. She developed nausea, wheezing, shortness of breath and malaise. Her wheezing has gotten worse in the ED and she is coughing. Chest x-ray reveals left lower lobe pneumonia versus atelectasis. On clinical exam this is pneumonia. White count is 27,000. Lactate 2.0. Her was hospitalized in the ICU Sunday night so I do not think there is been enough time for this to be hospital-acquired pneumonia. She received intravenous Zosyn in the ED which will be continued. She is stable at the time of my examination but will need to be admitted for further evaluation and treatment. Allergies Allergy/AdvReac Type Severity Reaction Status Date / Time bacitracin Allergy Unknown EMACERATION Verified 09/25/18 17:27 SKIN AT SITE neomycin Allergy Unknown EMACERATION Verified 09/25/18 17:27 SKIN AT SITE polymyxin B Allergy Unknown EMACERATION Verified 09/25/18 17:27 SKIN AT SITE bupropion AdvReac Severe lips Verified 09/25/18 17:27 swelling Aminoglycosides AdvReac Intermediate Verified 09/25/18 17:27 Home Medications Home Medications Medication Instructions Recorded Confirmed Type amlodipine 5 mg PO QAM 09/25/18 09/25/18 History ascorbic acid (vitamin C) 1 g PO QAM 09/25/18 09/25/18 History atorvastatin 20 mg PO QAM 09/25/18 09/25/18 History budesonide-formoterol [Symbicort] 2 puff INHALATION BID 09/25/18 09/25/18 History gabapentin 300 mg PO HS 09/25/18 09/25/18 History garlic 1,000 mg PO QAM 09/25/18 09/25/18 History guaifenesin [Mucinex] 600 mg PO Q12H PRN 09/25/18 09/25/18 History hydrochlorothiazide 25 mg PO QAM 09/25/18 09/25/18 History hydrocodone-acetaminophen 1 tab PO Q6H PRN 09/25/18 09/25/18 History metoprolol succinate 25 mg PO QAM 09/25/18 09/25/18 History nortriptyline 25 mg PO QAM 09/25/18 09/25/18 History nystatin 1 applic TOPICAL TID 09/25/18 09/25/18 History omega 3-ayh-nrq-fish oil [Page-3] 1 cap PO QAM 09/25/18 09/25/18 History polyethylene glycol 3350 17 g PO DAILY 09/25/18 09/25/18 History vitamin E 400 unit PO QAM 09/25/18 09/25/18 History vitamins A,C,P-cmor-raemlo 1 tab PO BID 09/25/18 09/25/18 History [PreserVision AREDS] Past Med/Surg History Medical History DNR (do not resuscitate) DVT prophylaxis Acute on chronic respiratory failure (Acute) COPD exacerbation (Acute) Pneumonia (Acute) Polycythemia (Chronic) Hypertension (Chronic) PVC (premature ventricular contraction) (Chronic) Hip fracture Social History Preferred Language: Azeri Feels Safe at Home: Yes Smoking Status: Current every day smoker Review of Systems Review of Systems: Constitutional-chills, malaise ENT-no blurred vision, no double vision, no epistaxis, no sore throat Respiratory-shortness of breath, wheezing, nonproductive cough Cardiac-no palpitations, no chest pain, no syncope GI-no vomiting, diarrhea, melena, hematochezia. She did develop some nausea today -no urinary retention, no urinary incontinence, no dysuria, no hematuria Musculoskeletal-no joint pain, no muscle tenderness Skin-no bruising, no rashes, no pruritus Neuro-no isolated weakness, no paresthesia, no weakness Psych-no depression, no anxiety Physical Exam Physical Exam: General-alert and oriented x3, no fevers, no chills HEENT-head atraumatic and normocephalic, TMs intact bilaterally, pupils equal and reactive to light, extraocular muscles intact Neck-no lymphadenopathy or thyromegaly, trachea midline Chest-audible bilateral expiratory wheezes. Inspiratory rhonchi at the left base. No inspiratory rales. No dullness to percussion. Cardiac-tachycardic rate with frequent premature beats. Normal S1 and S2, no murmurs Abdomen-normal bowel sounds, no hepatosplenomegaly. Mild left upper quadrant tenderness to deep palpation. This may be due to the underlying left lower lobe pneumonia. She has no GI tract symptoms. Extremities-no cyanosis, clubbing, or edema Neuro-cranial nerves II through XII intact, motor and sensory function within normal limits, strength symmetrical 5/5, no focal deficits Psych-normal affect, normal mood Results & Data Vital Signs (Past 12 Hours) Vital Signs Temp Pulse Resp BP Pulse Ox 09/25/18 17:47 37.6 C H 09/25/18 17:31 110 H 90 09/25/18 17:30 106 H 19 113/63 88 L 09/25/18 17:16 112 H 19 89 L 09/25/18 17:15 111 H 16 129/70 92 09/25/18 17:00 111 H 12 125/66 89 L 09/25/18 16:46 107 H 24 90 09/25/18 16:45 107 H 21 119/68 90 09/25/18 16:40 109 H 14 126/65 90 09/25/18 16:36 20 92 09/25/18 16:20 103 H 90 09/25/18 15:57 37.4 C 93 H 20 114/64 87 L Laboratory Results 09/25/18 16:22 09/25/18 16:22
[2018-09-25] MEDS ORDERED: ACETAMINOPHEN 325 MG TAB PO PRN (19:20)
[2018-09-25] MEDS ORDERED: ALUMINUM/MAGNESIUM SUSP 30 ML UDC PO PRN (19:20)
[2018-09-25] MEDS ORDERED: ONDANSETRON INJ 2 MG/ML 2 ML VIAL IV PRN (19:20)
[2018-09-25 20:19] LABS: Appearance Urine Clear (Clear); Bacteria Urine Automated Negative (Negative); Bilirubin Urine Negative (Negative); Blood Urine Negative (Negative); Color Urine Dark Yellow; Epithelial Cell Urine Auto >30 /lpf (0-5); Glucose Urine UA Negative (Negative); Ketones Urine Negative (Negative); Leukocyte Esterase Urine Negative (Negative); Nitrite Urine Negative (Negative); Protein Urine Trace (Negative); RBC Urine Automated 0-4 /hpf (0-4); Specific Gravity Urine 1.025 (1.000-1.030); Urobilinogen Urine Negative (Negative)
[2018-09-25] MEDS: methylPREDNISolone 40 MG in SYRINGE 0 ML IV SCH (20:34)
[2018-09-25] MEDS: GABAPENTIN 300 MG CAP PO SCH (20:35)
[2018-09-25] MEDS: guaiFENesin 600 MG TABCR PO SCH (20:35)
[2018-09-25] MEDS: SODIUM CHLORIDE 0.9% 1000ML 1,000 ML IV SCH (20:35)
[2018-09-25] MEDS: NYSTATIN POWDER 15GM BTL EXT SCH (20:36)
[2018-09-25] MEDS ORDERED: NON-FORMULARY MEDICATION (Vitamins A,C,E-Zinc-Copper [Preservision Areds] 1 TAB) PO SCH (21:00)
[2018-09-25] MEDS: ARFORMOTEROL TART 15MCG/2ML VIAL INH SCH (21:01)
[2018-09-25] MEDS: BUDESONIDE 0.5 MG/2 ML VIAL (PULMICORT) NEB SCH (21:01)
[2018-09-25] MEDS: PIPERACILLIN/TAZOBACTAM 4.5 GM in DEXTROSE 5% 100 ML IV SCH (22:17)
[2018-09-25] MEDS: ENOXAPARIN INJ 40 MG/0.4 ML SYR SQ SCH (22:19)
[2018-09-25] MEDS: NICOTINE 7 MG/24 HR TDSY TD SCH (22:20)
[2018-09-25] MEDS: HYDROCODONE/ACETAMINOPHEN 10/325 TAB PO PRN (23:43)
[2018-09-26] MEDS: PIPERACILLIN/TAZOBACTAM 4.5 GM in DEXTROSE 5% 100 ML IV SCH ×3 (05:05→20:53)
[2018-09-26] MEDS: methylPREDNISolone 40 MG in SYRINGE 0 ML IV SCH ×3 (05:06→20:54)
[2018-09-26] MEDS: BUDESONIDE 0.5 MG/2 ML VIAL (PULMICORT) NEB SCH ×2 (07:34→19:04)
[2018-09-26] MEDS: ARFORMOTEROL TART 15MCG/2ML VIAL INH SCH ×2 (07:34→19:04)
[2018-09-26] MEDS: guaiFENesin 600 MG TABCR PO SCH ×2 (07:45→20:54)
[2018-09-26] MEDS: POLYETHYLENE (MIRALAX) 17 GM PACK PO SCH (07:47)
[2018-09-26] MEDS ORDERED: PNEUMOCOCCAL POLYSACCHARIDES 25 MCG/0.5 ML VIAL/SYR IM ONE (08:00)
[2018-09-26] MEDS ORDERED: PNEUMOCOCCAL ADMINISTRATION CHARGE ONE (08:00)
[2018-09-26 08:16] LABS: Basophils # (auto) 0.01 K/uL (0-0.2); Hemoglobin 14.2 g/dL (12.0-16.0); Immature Granulocytes # (auto) 0.09 K/uL (0.00-0.02); Immature Granulocytes % (auto) 0.4 %; Lymphocytes % (auto) 5.8 %; Mean Corpuscular Hgb Conc 33.8 g/dL (32-36); Mean Corpuscular Volume 92.7 fL (80-100); Mean Platelet Volume 8.5 fL (7.4-10.4); Monocytes # (auto) 0.17 K/uL (0.11-0.59); Monocytes % (auto) 0.8 %; Neutrophils # (auto) 19.16 K/uL (1.4-6.5); Platelet Count 218 K/uL (130-400); RDW Coefficient of Variation 14.1 % (11.5-14.5); RDW Standard Deviation 48.1 fL (36.4-46.3); Red Blood Count 4.53 M/uL (4.2-5.4); White Blood Count 20.63 K/uL (4.8-10.8)
[2018-09-26 08:43] LABS: BUN Creatinine Ratio 17.5 (10-20); Calcium 9.9 mg/dl (8.5-10.1); Creatinine Clr Calc Pharmacy 48.4 ml/min; Est GFR (African American) 54.9; Est GFR (Non-African American) 47.3; Potassium 3.7 mmol/L (3.5-5.1)
[2018-09-26] MEDS ORDERED: ASCORBIC ACID 500 MG TAB PO SCH (09:00)
[2018-09-26] MEDS ORDERED: OMEGA-3 ACID ETHYL ESTERS 1 GM CAPSULE PO SCH (09:00)
[2018-09-26] MEDS ORDERED: NON-FORMULARY MEDICATION (Garlic 1,000 MG) PO SCH (09:00)
[2018-09-26] MEDS: SODIUM CHLORIDE 0.9% 1000ML 1,000 ML IV SCH (10:09)
[2018-09-26] MEDS: TOCOPHERYL, DL-ALPHA 400 UNITS CAP PO SCH (10:10)
[2018-09-26] MEDS: METOPROLOL SUCC 25MG EXT REL TAB PO SCH (10:10)
[2018-09-26] MEDS: AMLODIPINE BESYLATE 5 MG TAB PO SCH (10:10)
[2018-09-26] MEDS: ATORVASTATIN 20 MG TAB PO SCH (10:11)
[2018-09-26] MEDS: NORTRIPTYLINE HCL 25 MG CAP PO SCH (10:12)
[2018-09-26] MEDS: NYSTATIN POWDER 15GM BTL EXT SCH ×3 (10:12→20:55)
[2018-09-26] MEDS: HYDROCODONE/ACETAMINOPHEN 10/325 TAB PO PRN ×2 (10:16→20:52)
[2018-09-26] MEDS: MAGNESIUM OXIDE 400 MG TAB PO SCH (10:29)
[2018-09-26] MEDS: ASCORBIC ACID 500 MG TAB PO SCH (11:49)
--- NOTE | 2018-09-26 13:34 | Family Medicine Progress Note ---
Date of Service September 26, 2018 Assessment & Plan (1) Pneumonia: 73 y/o F with PMH COPD, HTN, Polycythemia presents with wheezing, SOB found to have LLL PNA. LLL Pneumonia -likely community-acquired. Zosyn was started in ER and cont on admission, so will just cont for now. -Will obtain sputum for sputum culture if produced. Blood cx pending -white count downtrending. Afebrile COPD exacerbation -Cont Arformoterol and budesonide nebulizer tx -Cont IV Solu-Medrol 40 mg. Switch to PO tomorrow -Treating underlying PNA as above -currently requiring 3L NC. Cont wean off as tolerated. Pt notes is O2 dependent COPD'r, but only uses 2L at nighttime HTN -Cont amlodipine, Toprol-XL, HCTZ. Holding diuretic Depression -Cont Nortriptyline 25 mg Spinal Stenosis/Sciatica -Cont Gabapentin 300 mg HS FEN/GI: NSS at 74 dc'd. Regular Diet DVT prophylaxis: Lovenox SQ DNR/DNI Dispo: Tele not needed, but likely d/c tomorrow so will remain. Additionally, of note, pt's is being downgraded from ICU and will be sharing room with pt. (2) Hypoxia: (3) Fever: (4) Acute on chronic respiratory failure: (5) COPD exacerbation: (6) Hypertension: Supervising Physician Co-Signing Physician Notes Resident Physician Supervision Note: I independently interviewed and examined the patient and verified the ng history and physical, reviewed labs and image studies, discussed the case with the resident Dr. Corona and agree with the findings and care plan. Subjective 73 y/o F found in bed this AM in NAD. Reports no acute overnight events. Reports breathing improved from yesterday. Teary that she will miss weekend wedding as both her and herself are in the hospital. Otherwise, tolerating PO intake. No issues voiding. No other acute concerns or complaints. Review of Systems Review of Systems: All systems reviewed & are unremarkable except as noted in HPI & below Physical Exam Constitutional: WD/WN, vitals as above Eyes: PERRL, conjunctivae normal, anicteric sclerae ENMT: external ear and nose normal, oropharynx normal Respiratory: normal respiratory effort some expiratory wheezes, rhonchi at L base Cardiovascular: RRR, no murmur, no edema Gastrointestinal (Abdomen): normal bowel sounds, soft, nontender, no hepatosplenomegaly Skin: no rashes, warm and dry Psychiatric: A+Ox3, euthymic affect Results & Data Vital Signs (Past 12 Hours) Vital Signs Temp Pulse Pulse Resp BP Pulse Ox 09/26/18 11:54 37.2 C 94 H 19 127/70 95 09/26/18 08:10 36.6 C 86 19 113/75 94 09/26/18 08:00 81 09/26/18 07:34 85 18 09/26/18 04:50 36.5 C 82 22 106/68 95 Laboratory Results Laboratory Results - last 24 hr 09/25/18 09/25/18 09/25/18 16:22 16:22 16:22 WBC 27.17 H RBC 4.66 Hgb 15.1 Hct 43.6 MCV 93.6 MCH 32.4 MCHC 34.6 RDW Std Deviation 48.0 H RDW Coeff of Deana 14.2 Plt Count 283 MPV 8.4 Immature Gran % (Auto) 0.4 Neut % (Auto) 90.3 Lymph % (Auto) 4.8 Morris % (Auto) 4.4 Eos % (Auto) 0.0 Baso % (Auto) 0.1 Immature Gran # (Auto) 0.12 H Neut # (Auto) 24.53 H Lymph # (Auto) 1.30 Morris # (Auto) 1.19 H Eos # (Auto) 0.00 Baso # (Auto) 0.03 Toxic Vacuolation 1+ ESR 55 H PT 10.3 INR 1.0 APTT 24.5 PTT Ratio 0.9 VBG pH VBG pCO2 VBG pO2 VBG HCO3 VBG O2 Saturation VBG Base Excess Barometric Pressure Sodium Potassium Chloride Carbon Dioxide Anion Gap BUN Creatinine Est Cr Clr Drug Dosing Est GFR ( Amer) Est GFR (Non-Af Amer) BUN/Creatinine Ratio Glucose Lactate Calcium Magnesium Total Bilirubin AST ALT Alkaline Phosphatase Troponin I C-Reactive Protein Total Protein Albumin Globulin Albumin/Globulin Ratio Procalcitonin Urine Color Urine Appearance Urine pH Ur Specific [place] Urine Protein Urine Glucose (UA) Urine Ketones Urine Blood Urine Nitrite Urine Bilirubin Urine Urobilinogen Ur Leukocyte Esterase Urine WBC (Auto) Urine RBC (Auto) U Hyaline Cast (Auto) U Epithel Cells (Auto) Urine Bacteria (Auto) Hepatitis C Ab Screen 09/25/18 09/25/18 09/25/18 16:22 16:22 16:22 WBC RBC Hgb Hct MCV MCH MCHC RDW Std Deviation RDW Coeff of Deana Plt Count MPV Immature Gran % (Auto) Neut % (Auto) Lymph % (Auto) Morris % (Auto) Eos % (Auto) Baso % (Auto) Immature Gran # (Auto) Neut # (Auto) Lymph # (Auto) Morris # (Auto) Eos # (Auto) Baso # (Auto) Toxic Vacuolation ESR PT INR APTT PTT Ratio VBG pH VBG pCO2 VBG pO2 VBG HCO3 VBG O2 Saturation VBG Base Excess Barometric Pressure Sodium 138 Potassium 3.6 Chloride 102 Carbon Dioxide 31 Anion Gap 5.0 BUN 20 H Creatinine 1.16 Est Cr Clr Drug Dosing 47.6 Est GFR ( Amer) 53.7 Est GFR (Non-Af Amer) 46.3 BUN/Creatinine Ratio 16.9 Glucose 123 H Lactate Calcium 10.0 Magnesium 1.5 L Total Bilirubin 0.4 AST 12 L ALT 21 Alkaline Phosphatase 105 Troponin I < 0.015 C-Reactive Protein 2.49 H Total Protein 7.6 Albumin 3.5 Globulin 4.1 H Albumin/Globulin Ratio 0.9 Procalcitonin 0.17 Urine Color Urine Appearance Urine pH Ur Specific [place] Urine Protein Urine Glucose (UA) Urine Ketones Urine Blood Urine Nitrite Urine Bilirubin Urine Urobilinogen Ur Leukocyte Esterase Urine WBC (Auto) Urine RBC (Auto) U Hyaline Cast (Auto) U Epithel Cells (Auto) Urine Bacteria (Auto) Hepatitis C Ab Screen Neg 09/25/18 09/25/18 09/25/18 16:25 16:25 19:53 WBC RBC Hgb Hct MCV MCH MCHC RDW Std Deviation RDW Coeff of Deana Plt Count MPV Immature Gran % (Auto) Neut % (Auto) Lymph % (Auto) Morris % (Auto) Eos % (Auto) Baso % (Auto) Immature Gran # (Auto) Neut # (Auto) Lymph # (Auto) Morris # (Auto) Eos # (Auto) Baso # (Auto) Toxic Vacuolation ESR PT INR APTT PTT Ratio VBG pH 7.39 VBG pCO2 52 H VBG pO2 25 VBG HCO3 31 VBG O2 Saturation < 60.0 VBG Base Excess 4.8 Barometric Pressure 726.3 Sodium Potassium Chloride Carbon Dioxide Anion Gap BUN Creatinine Est Cr Clr Drug Dosing Est GFR ( Amer) Est GFR (Non-Af Amer) BUN/Creatinine Ratio Glucose Lactate 2.0 Calcium Magnesium Total Bilirubin AST ALT Alkaline Phosphatase Troponin I C-Reactive Protein Total Protein Albumin Globulin Albumin/Globulin Ratio Procalcitonin Urine Color Dark Yellow Urine Appearance Clear Urine pH 5.0 Ur Specific [place] 1.025 Urine Protein Trace H Urine Glucose (UA) Negative Urine Ketones Negative Urine Blood Negative Urine Nitrite Negative Urine Bilirubin Negative Urine Urobilinogen Negative Ur Leukocyte Esterase Negative Urine WBC (Auto) 1-5 Urine RBC (Auto) 0-4 U Hyaline Cast (Auto) 1-5 U Epithel Cells (Auto) >30 H Urine Bacteria (Auto) Negative Hepatitis C Ab Screen 09/26/18 09/26/18 07:57 07:57 WBC 20.63 H RBC 4.53 Hgb 14.2 Hct 42.0 MCV 92.7 MCH 31.3 MCHC 33.8 RDW Std Deviation 48.1 H RDW Coeff of Deana 14.1 Plt Count 218 MPV 8.5 Immature Gran % (Auto) 0.4 Neut % (Auto) 93.0 Lymph % (Auto) 5.8 Morris % (Auto) 0.8 Eos % (Auto) 0.0 Baso % (Auto) 0.0 Immature Gran # (Auto) 0.09 H Neut # (Auto) 19.16 H Lymph # (Auto) 1.20 Morris # (Auto) 0.17 Eos # (Auto) 0.00 Baso # (Auto) 0.01 Toxic Vacuolation ESR PT INR APTT PTT Ratio VBG pH VBG pCO2 VBG pO2 VBG HCO3 VBG O2 Saturation VBG Base Excess Barometric Pressure Sodium 141 Potassium 3.7 Chloride 105 Carbon Dioxide 28 Anion Gap 7.0 BUN 20 H Creatinine 1.14 Est Cr Clr Drug Dosing 48.4 Est GFR ( Amer) 54.9 Est GFR (Non-Af Amer) 47.3 BUN/Creatinine Ratio 17.5 Glucose 180 H Lactate Calcium 9.9 Magnesium Total Bilirubin AST ALT Alkaline Phosphatase Troponin I C-Reactive Protein Total Protein Albumin Globulin Albumin/Globulin Ratio Procalcitonin Urine Color Urine Appearance Urine pH Ur Specific [place] Urine Protein Urine Glucose (UA) Urine Ketones Urine Blood Urine Nitrite Urine Bilirubin Urine Urobilinogen Ur Leukocyte Esterase Urine WBC (Auto) Urine RBC (Auto) U Hyaline Cast (Auto) U Epithel Cells (Auto) Urine Bacteria (Auto) Hepatitis C Ab Screen Medications Administered Current Inpatient Medications Acetaminophen (Tylenol) 650 mg PO Q4H PRN PRN Reason: Pain or Fever Stop: 10/25/18 19:19 Hydrocodone Bitart/Acetaminophen (Hamilton 10/325) 1 tab PO Q6H PRN PRN Reason: Pain Stop: 10/09/18 19:19 Last Admin: 09/26/18 10:16 Dose: 1 tab Documented by: Al Hydrox/Mg Hydrox/Simethicone (Maalox) 15 ml PO Q4H PRN PRN Reason: Dyspepsia Stop: 10/25/18 19:19 Amlodipine Besylate ([facility]asc) [facility] Stop: 10/26/18 08:59 Last Admin: 09/26/18 10:10 Dose: 5 mg Documented by: Arformoterol Tartrate (Brovana Neb) 15 mcg INH BIDR [facility] Stop: 10/25/18 19:59 Last Admin: 09/26/18 07:34 Dose: 15 mcg Documented by: Ascorbic Acid (Vitamin C) 1,000 mg [facility] Stop: 10/26/18 08:59 Last Admin: 09/26/18 11:49 Dose: 1,000 mg Documented by: Atorvastatin Calcium (Lipitor) 20 [facility] [place] Stop: 10/26/18 08:59 Last Admin: 09/26/18 10:11 Dose: 20 mg Documented by: Budesonide (Pulmicort Respules) 0.5 mg NEB BIDR [facility] Stop: 10/25/18 19:59 Last Admin: 09/26/18 07:34 Dose: 0.5 mg Documented by: Enoxaparin Sodium (Lovenox) 40 mg SQ Q24H [facility] Stop: 10/25/18 20:59 Last Admin: 09/25/18 22:19 Dose: Not Given Documented by: Fish Oil (Hollis-3 (Purified Fish Oil)) 1 [facility] [place]; Protocol Stop: 10/27/18 08:59 Gabapentin (Neurontin) 300 mg PO [facility] Stop: 10/25/18 20:59 Last Admin: 09/25/18 20:35 Dose: 300 mg Documented by: Guaifenesin (Mucinex) 600 mg PO Q12H [facility] Stop: 10/25/18 19:19 Last Admin: 09/26/18 07:45 Dose: 600 mg Documented by: Sodium Chloride (Nss 1000ml) 1,000 mls @ 75 mls/hr IV .[id number] [facility] Stop: 10/25/18 19:19 Last Admin: 09/26/18 10:09 Dose: 75 mls/hr Documented by: Methylprednisolone 40 mg/ (Syringe) 0.64 mls @ 1.5 mls/min IV Q8H [facility] Stop: 10/25/18 20:59 Last Admin: 09/26/18 13:09 Dose: 1.5 mls/min Documented by: Piperacillin Sod/Tazobactam (Sod 4.5 gm/ Dextrose) 120 mls @ 28.75 mls/hr IV Q8H [facility]; Protocol Stop: 10/02/18 21:59 Last Infusion: 09/26/18 09:20 Dose: Infused Documented by: Magnesium Oxide (Mag-Ox) 400 [facility] [place] Stop: 10/26/18 09:44 Last Admin: 09/26/18 10:29 Dose: 400 mg Documented by: Metoprolol Succinate (Toprol Xl) 25 mg PO QAM [facility] Stop: 10/26/18 08:59 Last Admin: 09/26/18 10:10 Dose: 25 mg Documented by: Miscellaneous (Remove Nicoderm Patch) 1 ea N/A HS [facility] Stop: 10/26/18 20:59 Miscellaneous Information (Consult) 1 ea N/A UD PRN PRN Reason: Consult Stop: 10/25/18 16:45 Nicotine (Nicoderm Cq) 7 mg TD [facility] Stop: 10/25/18 21:44 Last Admin: 09/25/18 22:20 Dose: Not Given Documented by: Nortriptyline HCl (Pamelor) [facility] [place] Stop: 10/26/18 08:59 Last Admin: 09/26/18 10:12 Dose: 25 mg Documented by: Nystatin (Mycostatin) 1 appln EXT TID [facility] Stop: 10/25/18 20:59 Last Admin: 09/26/18 13:09 Dose: 1 appln Documented by: Ondansetron HCl (Zofran) 4 mg IV Q6H PRN PRN Reason: Nausea Stop: 10/25/18 19:19 Polyethylene Glycol (Miralax Powder Packet) 17 gm PO DAILY [facility] Stop: 10/26/18 08:59 Last Admin: 09/26/18 07:47 Dose: Not Given Documented by: Vitamin E (Vitamin E) 400 units PO QAM [facility] Stop: 10/26/18 08:59 Last Admin: 09/26/18 10:10 Dose: 400 units Documented by: Resident Activity Tracking Resident Involvement: Resident Care Provided Care Provided: Adult Hospital Medicine (1) Fever Fever type: unspecified Qualified Code(s): R50.9 - Fever, unspecified (2) Pneumonia Laterality: unspecified laterality Lung location: unspecified part of lung Pneumonia type: due to unspecified organism Qualified Code(s): J18.9 - Pneumonia, unspecified organism
[2018-09-26] MEDS: OMEGA-3 (PURIFIED FISH OIL) 1 GM CAP PO SCH (13:57)
[2018-09-26] MEDS: ENOXAPARIN INJ 40 MG/0.4 ML SYR SQ SCH (20:53)
[2018-09-26] MEDS: GABAPENTIN 300 MG CAP PO SCH (20:54)
[2018-09-27] MEDS: methylPREDNISolone 40 MG in SYRINGE 0 ML IV SCH ×2 (04:46→14:45)
[2018-09-27] MEDS: PIPERACILLIN/TAZOBACTAM 4.5 GM in DEXTROSE 5% 100 ML IV SCH ×3 (05:35→22:11)
[2018-09-27 06:13] LABS: Hematocrit (blood only) 36.5 % (37-47); Hemoglobin 12.1 g/dL (12.0-16.0); Immature Granulocytes # (auto) 0.07 K/uL (0.00-0.02); Immature Granulocytes % (auto) 0.5 %; Lymphocytes # (auto) 1.33 K/uL (1.2-3.4); Lymphocytes % (auto) 9.2 %; Mean Corpuscular Hgb Conc 33.2 g/dL (32-36); Mean Corpuscular Volume 92.2 fL (80-100); Mean Platelet Volume 8.9 fL (7.4-10.4); Monocytes # (auto) 0.53 K/uL (0.11-0.59); Monocytes % (auto) 3.7 %; Neutrophils # (auto) 12.58 K/uL (1.4-6.5); Neutrophils % (auto) 86.6 %; Platelet Count 237 K/uL (130-400); RDW Standard Deviation 47.4 fL (36.4-46.3); Red Blood Count 3.96 M/uL (4.2-5.4); White Blood Count 14.51 K/uL (4.8-10.8)
[2018-09-27 06:51] LABS: Albumin Level 2.6 gm/dl (3.4-5.0); BUN Creatinine Ratio 17.7 (10-20); Calcium 8.9 mg/dl (8.5-10.1); Creatinine Clr Calc Pharmacy 51.6 ml/min; Est GFR (African American) 59.2; Est GFR (Non-African American) 51.1; Potassium 3.6 mmol/L (3.5-5.1)
[2018-09-27 06:58] LABS: Albumin Globulin Ratio 0.7 (0.9-2); Bilirubin,Total 0.2 mg/dl (0.2-1); Globulin 3.7 gm/dl (2.5-4.0); Total Protein 6.3 gm/dl (6.4-8.2)
--- NOTE | 2018-09-27 07:08 | Family Medicine Progress Note ---
Date of Service September 27, 2018 Assessment & Plan (1) Pneumonia: 73 y/o F with PMH COPD, HTN, Polycythemia presents with wheezing, SOB found to have LLL PNA. LLL Pneumonia -Symptomatically improving, afebrile with downtrending WBC in spite of steroid administration. -likely community-acquired. -On Zosyn. Can consider transition to PO med tomorrow. -Pt now with new onset diarrhea, one episode overnight. Will continue to monitor. -Blood Cx-NGTD Hypoxia -Much improved. -On RA currently with sat >90% -Baseline of 2L O2 AT NIGHT. No baseline O2 requirement during the day. COPD exacerbation -Improving -Cont Arformoterol and budesonide nebulizer tx -Switching to PO prednisone 40mg daily x5days today. Will d/c with 20mg taper -Treating underlying PNA as above -Will research whether PFTs available and pt has official COPD dx, and why the night O2 requirement. HTN -Cont amlodipine, Toprol-XL, HCTZ. Holding diuretic Depression -Cont Nortriptyline 25 mg Spinal Stenosis/Sciatica -Cont Gabapentin 300 mg HS FEN/GI: NSS at 74 dc'd. Regular Diet DVT prophylaxis: Lovenox SQ DNR/DNI Supervising Physician Co-Signing Physician Notes Resident Physician Supervision Note: I independently interviewed and examined the patient and verified the ng history and physical, reviewed labs and image studies, discussed the case with the resident Dr. Payton and agree with the findings and care plan. Subjective Ms. Kirby stated this morning before rounds that she feels much better than when she was originally admitted but is still having some trouble breathing. However, later that morning at rounds, her breathing was much improved to the point that she no longer required supplemental oxygen after being on 3L overnight. Denied headache, blurry vision, chest pain, N/V, constipation or pain in her legs. However, stated that she was having some diarrhea currently. Review of Systems Review of Systems: All systems reviewed & are unremarkable except as noted in HPI & below Physical Exam Physical Exam: General: Alert, oriented. HEENT: NC/AT Chest: Nontender to palpation. CV: RRR, No murmurs appreciated Resp: Distant but coarse breath sounds bilaterally with scattered wheezes, adequate air movement. Abdomen: Firm, Nontender, nondistended. No guarding. No organomegaly appreciated. Extremities: Some swelling of LLE. Results & Data Vital Signs (Past 12 Hours) Vital Signs Temp Pulse Pulse Resp BP Pulse Ox 09/27/18 04:47 36.5 C 80 22 114/74 97 09/27/18 00:50 37.4 C 09/26/18 23:59 92 H 09/26/18 23:40 36.5 C 88 20 121/73 97 09/26/18 19:21 37.2 C 95 H 20 98/57 L 92 Laboratory Results - last 24 hr 09/27/18 09/27/18 05:41 05:41 WBC 14.51 H RBC 3.96 L Hgb 12.1 Hct 36.5 L MCV 92.2 MCH 30.6 MCHC 33.2 RDW Std Deviation 47.4 H RDW Coeff of Deana 14.0 Plt Count 237 MPV 8.9 Immature Gran % (Auto) 0.5 Neut % (Auto) 86.6 Lymph % (Auto) 9.2 Pickett % (Auto) 3.7 Eos % (Auto) 0.0 Baso % (Auto) 0.0 Immature Gran # (Auto) 0.07 H Neut # (Auto) 12.58 H Lymph # (Auto) 1.33 [place]ett # (Auto) 0.53 Eos # (Auto) 0.00 Baso # (Auto) 0.00 Sodium 140 Potassium 3.6 Chloride 108 H Carbon Dioxide 28 Anion Gap 4.0 BUN 19 H Creatinine 1.07 Est Cr Clr Drug Dosing 51.6 Est GFR ( Amer) 59.2 Est GFR (Non-Af Amer) 51.1 BUN/Creatinine Ratio 17.7 Glucose 177 H Calcium 8.9 Total Bilirubin 0.2 AST 16 ALT 29 Alkaline Phosphatase 77 Total Protein 6.3 L Albumin 2.6 L Globulin 3.7 Albumin/Globulin Ratio 0.7 L Resident Activity Tracking Resident Involvement: Resident Care Provided Care Provided: Adult Hospital Medicine
[2018-09-27] MEDS: ARFORMOTEROL TART 15MCG/2ML VIAL INH SCH ×2 (07:13→19:10)
[2018-09-27] MEDS: BUDESONIDE 0.5 MG/2 ML VIAL (PULMICORT) NEB SCH ×2 (07:13→19:10)
[2018-09-27] MEDS: ATORVASTATIN 20 MG TAB PO SCH (09:25)
[2018-09-27] MEDS: NYSTATIN POWDER 15GM BTL EXT SCH ×3 (09:25→20:17)
[2018-09-27] MEDS: guaiFENesin 600 MG TABCR PO SCH ×2 (09:25→19:36)
[2018-09-27] MEDS: MAGNESIUM OXIDE 400 MG TAB PO SCH (09:25)
[2018-09-27] MEDS: POLYETHYLENE (MIRALAX) 17 GM PACK PO SCH (09:26)
[2018-09-27] MEDS: AMLODIPINE BESYLATE 5 MG TAB PO SCH (09:26)
[2018-09-27] MEDS: NICOTINE 7 MG/24 HR TDSY TD SCH (09:26)
[2018-09-27] MEDS: NORTRIPTYLINE HCL 25 MG CAP PO SCH (09:26)
[2018-09-27] MEDS: METOPROLOL SUCC 25MG EXT REL TAB PO SCH (09:27)
[2018-09-27] MEDS: ASCORBIC ACID 500 MG TAB PO SCH (09:27)
[2018-09-27] MEDS: TOCOPHERYL, DL-ALPHA 400 UNITS CAP PO SCH (09:27)
[2018-09-27] MEDS: OMEGA-3 (PURIFIED FISH OIL) 1 GM CAP PO SCH (10:55)
[2018-09-27] MEDS: HYDROCODONE/ACETAMINOPHEN 10/325 TAB PO PRN ×2 (11:39→21:00)
[2018-09-27] MEDS: predniSONE 20 MG TAB PO SCH (19:36)
[2018-09-27] MEDS: ENOXAPARIN INJ 40 MG/0.4 ML SYR SQ SCH (20:16)
[2018-09-27] MEDS: GABAPENTIN 300 MG CAP PO SCH (20:16)
[2018-09-28] MEDS: PIPERACILLIN/TAZOBACTAM 4.5 GM in DEXTROSE 5% 100 ML IV SCH (05:49)
[2018-09-28 06:59] LABS: Hematocrit (blood only) 36.8 % (37-47); Hemoglobin 12.2 g/dL (12.0-16.0); Immature Granulocytes # (auto) 0.07 K/uL (0.00-0.02); Immature Granulocytes % (auto) 0.6 %; Lymphocytes # (auto) 1.61 K/uL (1.2-3.4); Lymphocytes % (auto) 13.7 %; Mean Corpuscular Hgb Conc 33.2 g/dL (32-36); Mean Corpuscular Volume 92.2 fL (80-100); Monocytes # (auto) 0.48 K/uL (0.11-0.59); Monocytes % (auto) 4.1 %; Neutrophils # (auto) 9.63 K/uL (1.4-6.5); Neutrophils % (auto) 81.6 %; Platelet Count 260 K/uL (130-400); RDW Coefficient of Variation 14.2 % (11.5-14.5); RDW Standard Deviation 47.8 fL (36.4-46.3); Red Blood Count 3.99 M/uL (4.2-5.4); White Blood Count 11.79 K/uL (4.8-10.8)
[2018-09-28 07:20] LABS: BUN Creatinine Ratio 20.7 (10-20); Calcium 9.2 mg/dl (8.5-10.1); Creatinine Clr Calc Pharmacy 57.8 ml/min; Est GFR (African American) 67.5; Est GFR (Non-African American) 58.3; Potassium 3.9 mmol/L (3.5-5.1)
[2018-09-28] MEDS: BUDESONIDE 0.5 MG/2 ML VIAL (PULMICORT) NEB SCH ×2 (07:25→20:48)
[2018-09-28] MEDS: ARFORMOTEROL TART 15MCG/2ML VIAL INH SCH ×2 (07:25→20:48)
[2018-09-28] MEDS: AMLODIPINE BESYLATE 5 MG TAB PO SCH (07:50)
[2018-09-28] MEDS: ATORVASTATIN 20 MG TAB PO SCH (07:50)
[2018-09-28] MEDS: guaiFENesin 600 MG TABCR PO SCH ×2 (07:50→19:10)
[2018-09-28] MEDS: METOPROLOL SUCC 25MG EXT REL TAB PO SCH (07:51)
[2018-09-28] MEDS: NORTRIPTYLINE HCL 25 MG CAP PO SCH (07:52)
[2018-09-28] MEDS: MAGNESIUM OXIDE 400 MG TAB PO SCH (07:53)
[2018-09-28] MEDS: TOCOPHERYL, DL-ALPHA 400 UNITS CAP PO SCH (07:53)
[2018-09-28] MEDS: OMEGA-3 (PURIFIED FISH OIL) 1 GM CAP PO SCH (07:54)
[2018-09-28] MEDS: ASCORBIC ACID 500 MG TAB PO SCH (07:54)
[2018-09-28] MEDS: NICOTINE 7 MG/24 HR TDSY TD SCH (07:55)
[2018-09-28] MEDS: POLYETHYLENE (MIRALAX) 17 GM PACK PO SCH (07:56)
[2018-09-28] MEDS: predniSONE 20 MG TAB PO SCH (07:57)
[2018-09-28] MEDS: NYSTATIN POWDER 15GM BTL EXT SCH ×3 (07:57→20:44)
--- NOTE | 2018-09-28 08:12 | Family Medicine Progress Note ---
Date of Service September 28, 2018 Assessment & Plan (1) COPD exacerbation: 73 y/o F with PMH COPD, HTN, Polycythemia presents with wheezing, SOB found to have LLL PNA. LLL Pneumonia -Symptomatically improving, continues to be afebrile with downtrending WBC in spite of steroid administration. -likely CAP. -Pt unable to give sputum sample. -Blood Cx-NGTD -Stopped Zosyn (received ~2 days worth). Transitioned to PO Levofloxacin today for an additional 3 days. -Of note, pt with new onset diarrhea, three episodes overnight. Started on probiotic and ordered c. diff testing. -PT/OT Hypoxia -Much improved. -On RA currently with sat >90% -Baseline of 2L O2 AT NIGHT. No baseline O2 requirement during the day usually. -considering body habitus - likely with hypoventilation syndrome. consider sleep study COPD exacerbation -Improving -Cont Arformoterol and budesonide nebulizer tx -Currently on PO prednisone (Day 2) of 40mg daily x5days. Will discharge with 20mg taper -Treating underlying PNA as above -Per pt, she was diagnosed with COPD via PFTs done by Dr. Deutsch ~5years ago during workup of her polycythemia. She was also started on nightly O2 then. New Onset Diarrhea -will work up for c.diff -started on probiotics HTN -Cont amlodipine, Toprol-XL, HCTZ. Holding diuretic Depression -Cont Nortriptyline 25 mg Spinal Stenosis/Sciatica -Cont Gabapentin 300 mg HS FEN/GI: NSS at 74 dc'd. Regular Diet DVT prophylaxis: Lovenox SQ DNR/DNI Supervising Physician Co-Signing Physician Notes Resident Physician Supervision Note: I independently interviewed and examined the patient and verified the ng history and physical, reviewed labs and image studies, discussed the case with the resident Dr. Payton and agree with the findings and care plan. Subjective Ms. Kirby states she's slowly improving but still not back to baseline. States she had PFTs done about 5 years prior when her workup of polycythemia was being done. Was also started on her nighttime O2 at that point. Currently denies headache, chest pain, N/V, constipation. However, states she had 3 liquid, foul smelling bowel movements overnight. Review of Systems Review of Systems: All systems reviewed & are unremarkable except as noted in HPI & below Physical Exam Physical Exam: General: Alert, oriented. On room air. HEENT: NC/AT Chest: Nontender to palpation. CV: RRR, No murmurs appreciated Resp: Coarse breath sounds bilaterally with adequate air movement. Abdomen: Firm, Nontender, nondistended. No guarding. No organomegaly appreciated. Extremities: Some swelling of LLE. Results & Data Vital Signs (Past 12 Hours) Vital Signs Temp Pulse Pulse Resp BP Pulse Ox 09/28/18 07:25 86 20 90 09/28/18 07:07 36.6 C 63 20 135/75 92 09/28/18 03:46 36.6 C 62 19 119/68 95 09/27/18 23:59 75 09/27/18 23:28 36.6 C 81 19 134/80 97 Laboratory Results Laboratory Results - last 24 hr 09/28/18 09/28/18 06:12 06:12 WBC 11.79 H RBC 3.99 L Hgb 12.2 Hct 36.8 L MCV 92.2 MCH 30.6 MCHC 33.2 RDW Std Deviation 47.8 H RDW Coeff of Deana 14.2 Plt Count 260 MPV 9.0 Immature Gran % (Auto) 0.6 Neut % (Auto) 81.6 Lymph % (Auto) 13.7 [place] % (Auto) 4.1 Eos % (Auto) 0.0 Baso % (Auto) 0.0 Immature Gran # (Auto) 0.07 H Neut # (Auto) 9.63 H Lymph # (Auto) 1.61 [place] # (Auto) 0.48 Eos # (Auto) 0.00 Baso # (Auto) 0.00 Sodium 142 Potassium 3.9 Chloride 109 H Carbon Dioxide 28 Anion Gap 5.0 BUN 20 H Creatinine 0.96 Est Cr Clr Drug Dosing 57.8 Est GFR ( Amer) 67.5 Est GFR (Non-Af Amer) 58.3 BUN/Creatinine Ratio 20.7 H Glucose 120 H Calcium 9.2 Medications Administered Home Medications amlodipine 5 mg PO QAM 09/25/18 [History Confirmed 09/25/18] ascorbic acid (vitamin C) 1 g PO QAM 09/25/18 [History Confirmed 09/25/18] atorvastatin 20 mg PO QAM 09/25/18 [History Confirmed 09/25/18] budesonide-formoterol [Symbicort] 2 puff INHALATION BID 09/25/18 [History Confirmed 09/25/18] gabapentin 300 mg PO HS 09/25/18 [History Confirmed 09/25/18] garlic 1,000 mg PO QAM 09/25/18 [History Confirmed 09/25/18] guaifenesin [Mucinex] 600 mg PO Q12H PRN 09/25/18 [History Confirmed 09/25/18] hydrochlorothiazide 25 mg PO QAM 09/25/18 [History Confirmed 09/25/18] hydrocodone-acetaminophen 1 tab PO Q6H PRN 09/25/18 [History Confirmed 09/25/18] metoprolol succinate 25 mg PO QAM 09/25/18 [History Confirmed 09/25/18] nortriptyline 25 mg PO QAM 09/25/18 [History Confirmed 09/25/18] nystatin 1 applic TOPICAL TID 09/25/18 [History Confirmed 09/25/18] omega 5-svx-vvz-fish oil [[place]-3] 1 cap PO QAM 09/25/18 [History Confirmed 09/25/18] polyethylene glycol 3350 17 g PO DAILY 09/25/18 [History Confirmed 09/25/18] vitamin E 400 unit PO QAM 09/25/18 [History Confirmed 09/25/18] vitamins A,C,O-cgvp-rfefwg [PreserVision AREDS] 1 tab PO BID 09/25/18 [History Confirmed 09/25/18] Active Medications Acetaminophen (Tylenol) 650 mg PO Q4H PRN PRN Reason: Pain or Fever Stop: 10/25/18 19:19 Last Admin: 09/27/18 00:52 Dose: 650 mg Documented by: Hydrocodone Bitart/Acetaminophen ([place] 10/325) 1 tab PO Q6H PRN PRN Reason: Pain Stop: 10/09/18 19:19 Last Admin: 09/27/18 21:00 Dose: 1 tab Documented by: Al Hydrox/Mg Hydrox/Simethicone (Maalox) 15 ml PO Q4H PRN PRN Reason: Dyspepsia Stop: 10/25/18 19:19 Amlodipine Besylate ([facility]vasc) [facility] Stop: 10/26/18 08:59 Last Admin: 09/28/18 07:50 Dose: 5 mg Documented by: Arformoterol Tartrate (Brovana Neb) 15 mcg INH BIDR [facility] Stop: 10/25/18 19:59 Last Admin: 09/28/18 07:25 Dose: 15 mcg Documented by: Ascorbic Acid (Vitamin C) 1,000 mg PO [facility] Stop: 10/26/18 08:59 Last Admin: 09/28/18 07:54 Dose: 1,000 mg Documented by: Atorvastatin Calcium (Lipitor) 20 mg PO [facility] Stop: 10/26/18 08:59 Last Admin: 09/28/18 07:50 Dose: 20 mg Documented by: Budesonide (Pulmicort Respules) 0.5 mg NEB BIDR [facility] Stop: 10/25/18 19:59 Last Admin: 09/28/18 07:25 Dose: 0.5 mg Documented by: Enoxaparin Sodium (Lovenox) 40 mg SQ Q24H [facility] Stop: 10/25/18 20:59 Last Admin: 09/27/18 20:16 Dose: 40 mg Documented by: Fish Oil ([place]-3 (Purified Fish Oil)) 1 gm PO [facility]; Protocol Stop: 10/27/18 08:59 Last Admin: 09/28/18 07:54 Dose: 1 gm Documented by: Gabapentin (Neurontin) 300 mg PO [facility] Stop: 10/25/18 20:59 Last Admin: 09/27/18 20:16 Dose: 300 mg Documented by: Guaifenesin (Mucinex) 600 mg PO Q12H [facility] Stop: 10/25/18 19:19 Last Admin: 09/28/18 07:50 Dose: 600 mg Documented by: Piperacillin Sod/Tazobactam (Sod 4.5 gm/ Dextrose) 120 mls @ 28.75 mls/hr IV Q8H [facility]; Protocol Stop: 10/02/18 21:59 Last Admin: 09/28/18 05:49 Dose: 28.8 mls/hr Documented by: Magnesium Oxide (Mag-Ox) 400 mg PO [facility] Stop: 10/26/18 09:44 Last Admin: 09/28/18 07:53 Dose: 400 mg Documented by: Metoprolol Succinate (Toprol Xl) 25 mg PO [facility] Stop: 10/26/18 08:59 Last Admin: 09/28/18 07:51 Dose: 25 mg Documented by: Miscellaneous (Remove Nicoderm Patch) 1 ea N/A HS [facility] Stop: 10/26/18 20:59 Last Admin: 09/27/18 20:17 Dose: Not Given Documented by: Miscellaneous Information (Consult) 1 ea N/A UD PRN PRN Reason: Consult Stop: 10/25/18 16:45 Nicotine (Nicoderm Cq) 7 mg TD QAM [facility] Stop: 10/25/18 21:44 Last Admin: 09/28/18 07:55 Dose: Not Given Documented by: Nortriptyline HCl (Pamelor) 25 mg PO QAM [facility] Stop: 10/26/18 08:59 Last Admin: 09/28/18 07:52 Dose: 25 mg Documented by: Nystatin (Mycostatin) 1 appln EXT TID [facility] Stop: 10/25/18 20:59 Last Admin: 09/28/18 07:58 Dose: 1 appln Documented by: Ondansetron HCl (Zofran) 4 mg IV Q6H PRN PRN Reason: Nausea Stop: 10/25/18 19:19 Polyethylene Glycol (Miralax Powder Packet) 17 gm PO DAILY [facility] Stop: 10/26/18 08:59 Last Admin: 09/28/18 07:56 Dose: Not Given Documented by: Prednisone (Prednisone) 40 mg PO DAILY [facility] Stop: 10/02/18 19:59 Last Admin: 09/28/18 07:57 Dose: 40 mg Documented by: Vitamin E (Vitamin E) 400 units PO QAM [facility] Stop: 10/26/18 08:59 Last Admin: 09/28/18 07:53 Dose: 400 units Documented by: Resident Activity Tracking Resident Involvement: Resident Care Provided Care Provided: Adult Hospital Medicine
[2018-09-28] MEDS: levoFLOXacin 750 MG TAB PO SCH (11:58)
[2018-09-28] MEDS: LACTOBACILLUS ACIDOPHILUS (FLORANEX) TAB PO SCH ×3 (11:58→20:41)
[2018-09-28 13:36] LABS: Cdiff Antigen Positive; Cdiff Toxin A+B Negative Cdiff Toxin (Negative)
[2018-09-28] MEDS: RASPBERRY SYRUP 5 ML UDP PO SCH (17:44)
[2018-09-28] MEDS: VANCOMYCIN HCL 125 MG/2.5ML SOLN PO SCH (17:44)
[2018-09-28] MEDS: HYDROCODONE/ACETAMINOPHEN 10/325 TAB PO PRN (19:09)
[2018-09-28] MEDS: GABAPENTIN 300 MG CAP PO SCH (20:41)
[2018-09-28] MEDS: ENOXAPARIN INJ 40 MG/0.4 ML SYR SQ SCH (20:43)
[2018-09-29] MEDS: RASPBERRY SYRUP 5 ML UDP PO SCH ×3 (00:08→11:52)
[2018-09-29] MEDS: VANCOMYCIN HCL 125 MG/2.5ML SOLN PO SCH ×3 (00:08→11:53)
[2018-09-29] MEDS: HYDROCODONE/ACETAMINOPHEN 10/325 TAB PO PRN ×2 (02:04→09:48)
[2018-09-29] MEDS: BUDESONIDE 0.5 MG/2 ML VIAL (PULMICORT) NEB SCH (07:48)
[2018-09-29] MEDS: ARFORMOTEROL TART 15MCG/2ML VIAL INH SCH (07:48)
--- NOTE | 2018-09-29 08:20 | Family Medicine Progress Note ---
Date of Service September 29, 2018 Results & Data Vital Signs (Past 12 Hours) Vital Signs Temp Pulse Resp BP BP Pulse Ox 09/29/18 07:51 56 L 18 94 09/29/18 07:03 36.7 C 72 20 153/87 H 95 09/28/18 23:03 36.7 C 69 18 133/74 94 09/28/18 20:51 62 16 92
[2018-09-29 08:44] LABS: Basophils # (auto) 0.01 K/uL (0-0.2); Basophils % (auto) 0.1 %; Eosinophils # (auto) 0.01 K/uL (0-0.5); Eosinophils % (auto) 0.1 %; Hemoglobin 14.1 g/dL (12.0-16.0); Immature Granulocytes # (auto) 0.13 K/uL (0.00-0.02); Immature Granulocytes % (auto) 1.1 %; Lymphocytes # (auto) 3.65 K/uL (1.2-3.4); Lymphocytes % (auto) 31.8 %; Mean Corpuscular Hgb Conc 34.4 g/dL (32-36); Mean Corpuscular Volume 92.1 fL (80-100); Mean Platelet Volume 8.3 fL (7.4-10.4); Monocytes # (auto) 0.71 K/uL (0.11-0.59); Monocytes % (auto) 6.2 %; Neutrophils # (auto) 6.96 K/uL (1.4-6.5); Neutrophils % (auto) 60.7 %; Platelet Count 284 K/uL (130-400); RDW Standard Deviation 47.4 fL (36.4-46.3); Red Blood Count 4.45 M/uL (4.2-5.4); White Blood Count 11.47 K/uL (4.8-10.8)
[2018-09-29] MEDS: ATORVASTATIN 20 MG TAB PO SCH (08:44)
[2018-09-29] MEDS: LACTOBACILLUS ACIDOPHILUS (FLORANEX) TAB PO SCH ×2 (08:44→11:52)
[2018-09-29] MEDS: AMLODIPINE BESYLATE 5 MG TAB PO SCH (08:45)
[2018-09-29] MEDS: MAGNESIUM OXIDE 400 MG TAB PO SCH (08:45)
[2018-09-29] MEDS: POLYETHYLENE (MIRALAX) 17 GM PACK PO SCH (08:46)
[2018-09-29] MEDS: predniSONE 20 MG TAB PO SCH (08:47)
[2018-09-29] MEDS: TOCOPHERYL, DL-ALPHA 400 UNITS CAP PO SCH (08:47)
[2018-09-29] MEDS: ASCORBIC ACID 500 MG TAB PO SCH (08:47)
[2018-09-29] MEDS: NORTRIPTYLINE HCL 25 MG CAP PO SCH (08:48)
[2018-09-29] MEDS: guaiFENesin 600 MG TABCR PO SCH (08:48)
[2018-09-29] MEDS: NICOTINE 7 MG/24 HR TDSY TD SCH (08:48)
[2018-09-29] MEDS: OMEGA-3 (PURIFIED FISH OIL) 1 GM CAP PO SCH (08:49)
[2018-09-29] MEDS: NYSTATIN POWDER 15GM BTL EXT SCH (08:50)
[2018-09-29] MEDS ORDERED: hydroCHLOROthiazide 25 MG TAB PO SCH (09:00)
[2018-09-29 09:30] LABS: BUN Creatinine Ratio 19.3 (10-20); Calcium 9.4 mg/dl (8.5-10.1); Creatinine Clr Calc Pharmacy 49.5 ml/min; Est GFR (Non-African American) 48.4; Potassium 3.2 mmol/L (3.5-5.1)
[2018-09-29] MEDS: levoFLOXacin 750 MG TAB PO SCH (11:51)
--- NOTE | 2018-09-29 12:53 | Discharge Summary ---
Date of Service September 29, 2018 Admission HPI Per Admitting Provider 73-year-old female with oxygen dependent COPD who was visiting her in the intensive care unit today. She developed nausea, wheezing, shortness of breath and malaise. Her wheezing has gotten worse in the ED and she is coughing. Chest x-ray reveals left lower lobe pneumonia versus atelectasis. On clinical exam this is pneumonia. White count is 27,000. Lactate 2.0. Her was hospitalized in the ICU Sunday night so I do not think there is been enough time for this to be hospital-acquired pneumonia. She received intravenous Zosyn in the ED which will be continued. She is stable at the time of my examination but will need to be admitted for further evaluation and treatment. Admission Exam Per Admitting Provider General-alert and oriented x3, no fevers, no chills HEENT-head atraumatic and normocephalic, TMs intact bilaterally, pupils equal and reactive to light, extraocular muscles intact Neck-no lymphadenopathy or thyromegaly, trachea midline Chest-audible bilateral expiratory wheezes. Inspiratory rhonchi at the left base. No inspiratory rales. No dullness to percussion. Cardiac-tachycardic rate with frequent premature beats. Normal S1 and S2, no murmurs Abdomen-normal bowel sounds, no hepatosplenomegaly. Mild left upper quadrant tenderness to deep palpation. This may be due to the underlying left lower lobe pneumonia. She has no GI tract symptoms. Extremities-no cyanosis, clubbing, or edema Neuro-cranial nerves II through XII intact, motor and sensory function within normal limits, strength symmetrical 5/5, no focal deficits Psych-normal affect, normal mood Principal Diagnosis Pneumonia COPD Exacerbation C. Diff colitis Discharge Exam General: Alert, oriented. On room air. HEENT: NC/AT Chest: Nontender to palpation. CV: RRR, No murmurs appreciated Resp: Coarse breath sounds bilaterally with adequate air movement. Abdomen: Firm, Nontender, nondistended. No guarding. No organomegaly appreciated. Extremities: Some swelling of LLE. Discharge Data Allergies Allergy/AdvReac Type Severity Reaction Status Date / Time bacitracin Allergy Unknown EMACERATION Verified 09/25/18 17:27 SKIN AT SITE neomycin Allergy Unknown EMACERATION Verified 09/25/18 17:27 SKIN AT SITE polymyxin B Allergy Unknown EMACERATION Verified 09/25/18 17:27 SKIN AT SITE bupropion AdvReac Severe lips Verified 09/25/18 17:27 swelling Aminoglycosides AdvReac Intermediate Verified 09/25/18 17:27 Consultations 09/25/18 17:45 ED Decision to Admit Stat Hospital Course (1) Pneumonia: 73 y/o F with PMH COPD, HTN, and Polycythemia who presented with wheezing and SOB, and was found to have LLL PNA on September 25 2018. She was discharged on September 29 2018. LLL Pneumonia -Symptomatically improved on Zosyn and Levofloxacin for a total of 4 days while hospitalized. Discharged with 1 more day's worth of Levofloxacin medication. -Likely a community acquired pneumonia though pt was visiting hospitalized for a few days around the time she became hospitalized herself. -Pt was unable to give sputum sample and blood cultures had no growth to date upon discharge. -Of note, pt with new onset diarrhea. Started on probiotic and was found to be positive with the c. diff gene. Treatment as below. Hypoxia -Much improved on discharge. Was on RA. -Baseline of 2L O2 AT NIGHT. No baseline O2 requirement during the day usually. -considering body habitus - likely with hypoventilation syndrome. consider sleep study as outpt. COPD exacerbation -Improved on discharge. -Cont Arformoterol and budesonide nebulizer tx -Treated with 5 days of Prednisone in total. -Per pt, she was diagnosed with COPD via PFTs done by Dr. Deutsch ~5years ago during workup of her polycythemia. She was also started on nightly O2 then. New Onset Diarrhea -c.diff positive. Was started on PO Vancomycin for 1 day while hospitalized and discharged with 9 more days of medication. -started on probiotics and advised OTC use or Activia yogurt. -Advised to discontinue her home polyethylene glycol laxative. -Close PCP followup strongly recommended to ensure resolution. HTN -Pt presented hypotensive and her home HCTZ and diuretic were held while hospitalized. -Cont amlodipine, Toprol-XL. -Upon discharge all medications were restarted. -PCP followup strongly encouraged after discharge. Depression -Cont Nortriptyline 25 mg Spinal Stenosis/Sciatica -Cont Gabapentin 300 mg HS Total Time Total Time Spent Total Time Spent (In Minutes): 60 Discharge Plan Discharge Items Patient Disposition: Home - Self-Care Reason For Visit: PNEUMONIA,EXACERBATION COPD Discharge Diagnosis: COPD Exacerbation, c. diff colitis, pneumonia Discharge Goals: Decrease discomfort, Improve disease control and Improve function Activity: Per 'Additional Instructions' section Non-emergency contact: Primary Care Provider Call non-emergency contact if: your symptoms worsen and you have a fever Follow-up/Referrals: Sherry Syed MD [Primary Care Provider] - Diet: Heart Healthy Addtl Provider Instructions: Pneumonia -You were found to have a pneumonia and you were treated with IV antibiotics and the antibiotic Levofloxacin for the past 4 days. Please take your last dose of the antibiotic tomorrow 09/30/18. A prescription for this was sent to your [facility]. -Please followup with your primary care physician in the next week to ensure resolution of symptoms. COPD Exacerbation -Your were treated with breathing treatments and Prednisone for this exacerbation. -Please continue taking the Prednisone for an additional 2 more days starting tomorrow 09/30/18. A prescription for this was sent to your pharmacy. -Please continue to use your home inhalers and COPD medications. -Please followup with your primary care provider in the next week as well for this. C. Difficile Infection -You developed diarrhea which is due to a clostridium difficile infection. -You received one day's worth of medication while hospitalized. -Please continue to take the medication every 6 hours for an additional 9 more days. A prescription for this was sent to your pharmacy. -Continue taking the probiotic to help with the diarrhea. That can be found over the counter in any drugstore. The yogurt Activia can also help. -Please DISCONTINUE using your home laxative while you have this diarrheal infection. -It is very important that you followup with your primary care provider to ensure complete resolution of this. Prescriptions: New vancomycin 125 mg capsule 125 mg PO QID 9 Days Qty: 36 RF: 0 Continued ascorbic acid (vitamin C) 1,000 mg Tablet 1 g PO QAM RF: 0 atorvastatin 20 mg tablet 20 mg PO QAM RF: 0 amlodipine 5 mg tablet 5 mg PO QAM RF: 0 hydrocodone-acetaminophen 10-325 mg tablet 1 tab PO Q6H PRN (Reason: Pain) RF: 0 nortriptyline 25 mg capsule 25 mg PO QAM RF: 0 garlic 1,000 mg Capsule 1,000 mg PO QAM RF: 0 gabapentin 300 mg capsule 300 mg PO HS RF: 0 hydrochlorothiazide 25 mg tablet 25 mg PO QAM RF: 0 metoprolol succinate 25 mg tablet extended release 24 hr 25 mg PO QAM RF: 0 nystatin 100,000 unit/gram Powder 1 applic TOPICAL TID RF: 0 vitamin E 400 unit Capsule 400 unit PO QAM RF: 0 Symbicort 160-4.5 mcg/actuation HFA aerosol inhaler 2 puff inhalation BID RF: 0 PreserVision AREDS 7,160-113-100 [id number] Tablet 1 tab PO BID RF: 0 guaifenesin [Mucinex] 600 mg Tablet Extended Release 12hr 600 mg PO Q12H PRN (Reason: EXCESS MUCUS) RF: 0 [place]-3 350 mg-235 mg- 90 mg-597 mg Capsule,Delayed Release(Dr/Ec) 1 cap PO QAM RF: 0 Discontinued polyethylene glycol 3350 17 gram/dose Powder 17 g PO DAILY RF: 0 Stand-Alone Forms: [facility] Discharge Orders: Discharge Order (Routine); Ordered 09/29/18 Ordered By: Cony Payton Admission Data Admit Date/Time: 09/25/18 18:24 Attending Provider: Kira Wallace Admit Provider: Mike Rome Primary Care Provider: Sherry Syed Other Providers: Mike Rome Service: Medical Other Interventions: Discharge Summary Assessment (RN) Last Done: 09/29/18 12:56 DC Date/Time DO NOT enter until pt leaves facility: 09/29/18 13:15 Supervising Physician Co-Signing Physician Notes Resident Physician Supervision Note: I independently interviewed and examined the patient and verified the ng history and physical, reviewed labs and image studies, discussed the case with the resident Dr. Payton and agree with the findings and care plan. Time spent in discharge 35 min Resident Activity Tracking Resident Involvement: Resident Care Provided Care Provided: Adult Hospital Medicine
[2018-09-29] MEDS: METOPROLOL SUCC 25MG EXT REL TAB PO SCH (14:03)
== END 2018-09-29 13:15 | disposition home or self-care (01) | DRG 193 ==
LOC: ED 15:50 → SUATTDRO 18:24 → 2S 18:24 → 2W 09-28 15:41

== ENCOUNTER 2020-02-16 17:42 | Inpatient (IN) ==
[2020-02-16 18:33] LABS: Hematocrit (blood only) 43.6 % (37-47); Hemoglobin 14.6 g/dL (12.0-16.0); Mean Corpuscular Hemoglobin 31.9 pg (25-34); Mean Corpuscular Hgb Conc 33.5 g/dL (32-36); Mean Corpuscular Volume 95.2 fL (80-100); Mean Platelet Volume 9.1 fL (7.4-10.4); Platelet Count 267 K/uL (130-400); Red Blood Count 4.58 M/uL (4.2-5.4); White Blood Count 22.38 K/uL (4.8-10.8)
[2020-02-16 18:43] LABS: INR 1.1 (0.9-1.1); Partial Thromboplastin Time 28.3 Seconds (21.0-31.0); Prothrombin Time 11.9 Seconds (9.0-12.0)
[2020-02-16 18:51] LABS: Albumin Level 2.9 gm/dl (3.4-5.0); BUN Creatinine Ratio 17.8 (10-20); Calcium 9.7 mg/dl (8.5-10.1); Creatinine Clr Calc Pharmacy 30.3 ml/min; Est GFR (African American) 34.6; Est GFR (Non-African American) 29.8; Potassium 3.7 mmol/L (3.5-5.1)
[2020-02-16] MEDS ORDERED: ONDANSETRON INJ 2 MG/ML 2 ML VIAL IV STA (18:52)
--- NOTE | 2020-02-16 18:58 | Emergency Department Note ---
Impression & Plan Abdominal pain, acute, right upper quadrant, Substernal chest pain, Leukocytosis, Choledocholithiasis, Elevated LFTs, Cholelithiasis, Elevated troponin ED Provider Note INFORMANT: Patient ED PROVIDER(S): Vernon Clancy MD CHIEF COMPLAINT: Substernal chest pain PLAN: Disposition: Admitted Condition: Guarded MEDICAL DECISION MAKING: Patient presented to the emergency department because of substernal chest pain. She also complained of right upper abdominal pain. On examination she was tender. EMS did give her aspirin and nitro which did not help. She was given IV Dilaudid and Zofran here and this helped somewhat but she did require an additional dose of IV Dilaudid. The patient a blood work obtained. Her CBC was markedly elevated with a white count of 22,000. The patient was hydrated. She was found to have an unremarkable chemistry panel. The patient's troponin was mildly elevated. LFTs were significantly elevated. The patient underwent a chest x-ray which was unremarkable however her ultrasound imaging revealed multiple findings that were concerning for cholelithiasis and possible c holedocholithiasis. The patient had obstructive findings on her LFTs. Given her right upper quadrant pain, leukocytosis, and abnormal ultrasound the patient was treated with IV Mefoxin. Her ECG showed a sinus tachycardia but there was no evidence of acute ischemic change. Prehospital ECG did not reveal any acute ischemic change either. She does have a history of COPD and was initially mildly hypoxic for EMS. She will definitely need further management in the hospital. Patient was evaluated by Dr. Mendes of internal medicine. She was admitted for further treatment. Triage Nursing notes reviewed and agree them. Vital Signs: reviewed and remarkable for mild tachycardia Differential diagnosis: Biliary pathology, PUD, pancreatitis, cardiac sources, appendicitis, ovarian cyst, ovarian torsion, infections, diverticulitis, UTI, obstruction, mesenteric ischemia, aortic pathology, inflammatory bowel disease, renal colic, hernia, volvulus, constipation, as well as other pathologies. Diagnostics interpreted by me: ECG: Twelve-lead ECG reveals a sinus tachycardia at 104 bpm. PVCs. Left axis deviation inferior Q waves present. No ST elevation or depression. Prehospital ECG reveals a sinus rhythm at 73 beats from. There is inferior Q waves present. No ST elevation or depression. Cardiac Monitoring: Cardiac monitoring ordered by me: The patient was placed on continuous cardiac monitoring and observed. It revealed a normal sinus rhythm at 92 beats per minute without evidence of dysrhythmia. Imaging studies: Chest x-ray. Findings: A chest x-ray was performed and revealed no pneumothorax, effusion, infiltrate, pulmonary edema, free air under the diaphragm, or wide mediastinum. Impression: No acute disease. Ultrasound imaging reveals a stone in the gallbladder neck, stone in the gallbladder as well. There was no evidence of wall thickening. The patient does have ductal dilatation present. I refer you to the EMR for further details. Consultation(s): [facility] service HPI: The patient is a 74 year old female who presents to the Emergency Room with complaints of substernal chest pain. This started today and is worsening. The patient also notes the following associated symptoms, mild right flank pain yesterday, shortness of breath, right upper quadrant abdominal pain. The patient has been given aspirin and 3 nitroglycerin unsuccessfully for relieving factors. Current pain is rated as 7/10. Pt denies LOC, headache, fevers, chills, diaphoresis, visual changes, neck pain, nausea, vomiting, left-sided or midline back pain, melena, hematochezia, urinary symptoms, numbness, weakness, lymphadenopathy, rash, or other complaints. ROS: See above HPI for pertinent positives & negatives. A total of 10 systems reviewed and were otherwise negative. PAST MEDICAL HISTORY:See Below, hypertension, COPD PAST SURGICAL HISTORY:See Below, FAMILY HISTORY:See Below SOCIAL HISTORY:See Below, HOME MEDICATIONS:See Below ALLERGIES:See Below VITALS:See Below PHYSICAL EXAMINATION: GENERAL: Awake, alert, uncomfortable-appearing, in no distress HENT: Normocephalic, atraumatic. Oropharynx unremarkable. EYES: Normal conjunctiva. Sclera non-icteric. NECK: Inspection normal. Non-tender. Supple. No nuchal rigidity. FROM. No masses. RESPIRATORY: Clear to auscultation. No wheezes. No rales. Normal respiratory effort. CARDIAC: Normal rate. Normal rhythm. No murmurs. No rubs. Extremities warm and well perfused. Pulses equal. No JVD. GI: Soft, non-distended. Right upper quadrant tenderness to palpation. No rebo und or guarding. No masses. RECTAL: Deferred. MUSCULOSKELETAL: Atraumatic. Chest examination reveals no tenderness. The back is symmetrical on inspection without obvious abnormality. There is no CVA t enderness to palpation. No joint edema. LOWER EXTREMITIES: Calves are equal size bilaterally and non-tender. No edema. No discoloration. NEURO: Normal sensorium. No sensory or motor deficits noted. SKIN: No rash or jaundice noted. ED COURSE: Critical Care: I have personally spent greater than 30 minutes of critical care time in the direct management of this patient. This includes bedside care, interpretation of diagnostic studies, and testing, discussion with consultants, patient, and other required patient management activities. These minutes are in excess of all separately billable procedures. Vernon Clancy MD Past Med/Surg History Medical History (Updated 02/16/20 @ 23:59 by Vernon Clancy MD) Chronic obstructive pulmonary disease Chronic osteoarthritis Clostridium difficile diarrhea DNR (do not resuscitate) Dyslipidemia Hepatic steatosis Hyperparathyroidism, primary Hypertension Impaired fasting glucose Lumbar spinal stenosis Nocturnal hypoxia on nocturnal oxygen therapy Nontoxic multinodular goiter Secondary polycythemia Venous insufficiency Surgical History History of appendectomy History of hip replacement History of knee replacement Family History (Updated 05/09/19 @ 16:06 by Bessie Curran) Other No pertinent family history Social History Smoking Status: Current every day smoker Age Started Using Tobacco: 18; packs per day: 0.5; Cigarettes Per Day: 10; Hx Alcohol Use: No Hx Substance Use: No Preferred Language: South African Communication Ability: Effective 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 Beliefs That Will Affect Care: Quaker Quaker Beliefs: islam marital status: Current Living Situation: Spouse current occupational status: retired Feels Safe at Home: Yes Seatbelt Use: always Sunscreen Use: Yes Assistive Devices: Cane Allergies Allergies Allergy/AdvReac Type Severity Reaction Status Date / Time bacitracin Allergy Unknown EMACERATION Verified 02/16/20 19:13 SKIN AT SITE neomycin Allergy Unknown EMACERATION Verified 02/16/20 19:13 SKIN AT SITE polymyxin B Allergy Unknown EMACERATION Verified 02/16/20 19:13 SKIN AT SITE bupropion AdvReac Severe lips Verified 02/16/20 19:13 swelling Aminoglycosides AdvReac Intermediate Verified 02/16/20 19:13 Home Meds Home Medications Medication Instructions Recorded Confirmed [place]-3 1 cap PO QAM 09/25/18 02/16/20 ascorbic acid (vitamin C) 1 g PO QAM 09/25/18 02/16/20 vitamin E 100 unit capsule 100 units PO DAILY 10/02/18 02/16/20 ipratropium bromide 17 2 puffs INHALATION QID PRN #1 gm 10/05/18 02/16/20 mcg/actuation HFA aerosol inhaler cholecalciferol (vitamin D3) 25 1,000 units PO DAILY #90 cap 04/06/19 02/16/20 mcg (1,000 unit) capsule aspirin 81 mg tablet,delayed 81 mg PO UD 02/03/20 02/16/20 release atorvastatin 20 mg PO HS 02/16/20 02/16/20 vit C,E-Cm-wilhz-lutein-zeaxan 1 tab PO BID 02/16/20 02/16/20 [PreserVision AREDS-2] Previous Rx's Medication Instructions Recorded hydrochlorothiazide 25 mg tablet 25 mg PO DAILY #90 tab 04/08/19 budesonide-formoterol HFA 160 2 puff INHALATION BID #30.6 gm 10/30/19 mcg-4.5 mcg/actuation aerosol inhaler amlodipine 5 mg tablet 5 mg PO QAM #90 tab 12/02/19 metoprolol succinate 25 mg 25 mg PO DAILY #90 tab 12/18/19 tablet,extended release 24 hr nortriptyline 25 mg capsule 25 - 50 mg PO HS #60 cap 01/26/20 gabapentin 300 mg capsule 300 mg PO HS #90 cap 02/02/20 hydrocodone 10 mg-acetaminophen 2 tab PO Q6H PRN #240 tab MDD 8 02/03/20 325 mg tablet tabs Results & Data (ED) Vital Signs Vital Signs - 24 hr 02/16/20 17:47 02/16/20 18:00 02/16/20 18:04 Temperature 37.2 C Temperature Source Oral Pulse Rate 101 H 102 H 98 H Pulse Rate [Bilateral Apical] Pulse Rate from SpO2 Sensor 73 81 Pulse Rhythm Respiratory Rate 13 20 17 Respiratory Effort / Characteristics Spontaneous Respiratory Depth Normal Blood Pressure 105/58 L 105/58 L Blood Pressure [Left Arm] Blood Pressure Mean 82 73 Blood Pressure Mean [Left Arm] Blood Pressure Position Sitting Pulse Oximetry 92 82 L 92 Oxygen Delivery Method Nasal Cannula Room Air Nasal Cannula Oxygen Flow Rate 3 Sepsis Recent Fever Within 48 Hours No Sepsis New/Unexplained Change in Mental Status No Sepsis Action Taken by Nursing No Action Required Oxygen Flow Rate - Titration 4 Pulse Oximetry Post Tiitration 97 02/16/20 18:32 02/16/20 19:05 02/16/20 20:00 Temperature Temperature Source Pulse Rate 100 H Pulse Rate [Bilateral Apical] 72 77 Pulse Rate from SpO2 Sensor Pulse Rhythm Regular Respiratory Rate 20 20 Respiratory Effort / Characteristics Respiratory Depth Blood Pressure Blood Pressure [Left Arm] 137/70 140/70 Blood Pressure Mean Blood Pressure Mean [Left Arm] 92 93 Blood Pressure Position Pulse Oximetry 92 94 92 Oxygen Delivery Method Nasal Cannula Room Air Room Air Oxygen Flow Rate 3 Sepsis Recent Fever Within 48 Hours Sepsis New/Unexplained Change in Mental Status Sepsis Action Taken by Nursing Oxygen Flow Rate - Titration Pulse Oximetry Post Tiitration 02/16/20 20:44 02/16/20 21:44 02/16/20 23:11 Temperature Temperature Source Pulse Rate Pulse Rate [Bilateral Apical] 87 100 H 85 Pulse Rate from SpO2 Sensor Pulse Rhythm Respiratory Rate 20 20 20 Respiratory Effort / Characteristics Respiratory Depth Blood Pressure Blood Pressure [Left Arm] 137/88 145/85 H 144/80 H Blood Pressure Mean Blood Pressure Mean [Left Arm] 104 105 101 Blood Pressure Position Pulse Oximetry 95 92 92 Oxygen Delivery Method Room Air Room Air Oxygen Flow Rate Sepsis Recent Fever Within 48 Hours Sepsis New/Unexplained Change in Mental Status Sepsis Action Taken by Nursing Oxygen Flow Rate - Titration Pulse Oximetry Post Tiitration 02/16/20 23:38 Temperature Temperature Source Pulse Rate Pulse Rate [Bilateral Apical] 104 H Pulse Rate from SpO2 Sensor Pulse Rhythm Respiratory Rate 20 Respiratory Effort / Characteristics Non-Labored Spontaneous Respiratory Depth Blood Pressure Blood Pressure [Left Arm] Blood Pressure Mean Blood Pressure Mean [Left Arm] Blood Pressure Position Pulse Oximetry 96 Oxygen Delivery Method Nasal Cannula Oxygen Flow Rate 3 Sepsis Recent Fever Within 48 Hours Sepsis New/Unexplained Change in Mental Status Sepsis Action Taken by Nursing Oxygen Flow Rate - Titration Pulse Oximetry Post Tiitration Laboratory Data Result diagrams: 02/16/20 18:11 02/16/20 18:11 Lab Results 02/16/20 02/16/20 02/16/20 Range/Units 18:11 18:11 18:11 WBC 22.38 H (4.8-10.8) K/uL RBC 4.58 (4.2-5.4) M/uL Hgb 14.6 (12.0-16.0) g/dL Hct 43.6 (37-47) % MCV 95.2 (80-100) fL MCH 31.9 (25-34) pg MCHC 33.5 (32-36) g/dL RDW Std Deviation 52.0 H (36.4-46.3) fL RDW Coeff of Deana 15.0 H (11.5-14.5) % Plt Count 267 (130-400) K/uL MPV 9.1 (7.4-10.4) fL Immature Gran % (Auto) 0.3 % Neut % (Auto) 93.7 % Lymph % (Auto) 3.0 % Merrick % (Auto) 2.9 % Eos % (Auto) 0.0 % Baso % (Auto) 0.1 % Neut # (Auto) 20.97 H (1.4-6.5) K/uL Lymph # (Auto) 0.67 L (1.2-3.4) K/uL Merrick # (Auto) 0.65 H (0.11-0.59) K/uL Eos # (Auto) 0.00 (0-0.5) K/uL Baso # (Auto) 0.02 (0-0.2) K/uL Immature Gran # (Auto) 0.07 H (0.00-0.02) K/uL PT 11.9 (9.0-12.0) Seconds INR 1.1 (0.9-1.1) APTT 28.3 (21.0-31.0) Seconds PTT Ratio 1.0 Sodium 135 L (136-145) mmol/L Potassium 3.7 (3.5-5.1) mmol/L Chloride 97 L (98-107) mmol/L Carbon Dioxide 30 (21-32) mmol/L Anion Gap 8.0 (3-11) BUN 30 H (7-18) mg/dl Creatinine 1.66 H (0.6-1.2) mg/dl Est Cr Clr Drug Dosing 30.3 ml/min Est GFR ( Amer) 34.6 Est GFR (Non-Af Amer) 29.8 BUN/Creatinine Ratio 17.8 (10-20) Glucose 128 H (70-99) mg/dl Calcium 9.7 (8.5-10.1) mg/dl Total Bilirubin 2.6 H (0.2-1) mg/dl AST 137 H (15-37) U/L ALT 304 H (12-78) U/L Alkaline Phosphatase 448 H (45-117) U/L Troponin I 0.093 H* (0-0.045) ng/ml Total Protein 7.3 (6.4-8.2) gm/dl Albumin 2.9 L (3.4-5.0) gm/dl Globulin 4.4 H (2.5-4.0) gm/dl Albumin/Globulin Ratio 0.7 L (0.9-2) Lipase 94 (73-393) U/L Administered Medications Hydromorphone HCl (Hydromorphone Inj 0.5 Mg/0.5 Ml Syr) 0.5 mg IV Q15M PRN PRN Reason: Pain Stop: 03/01/20 18:51 Last Admin: 02/16/20 23:33 Dose: 0.5 mg Documented by: [id number] Admin: 02/16/20 21:18 Dose: 0.5 mg Documented by: [id number] Admin: 02/16/20 19:54 Dose: 0.5 mg Documented by: [id number] Admin: 02/16/20 19:02 Dose: 0.5 mg Documented by: [id number] Discontinued Medications Albuterol (Albut/Ipratrop 3mg/0.5mg Neb 3 Ml Vial) 3 ml NEB NOW STA Stop: 02/16/20 23:23 Last Admin: 02/16/20 23:35 Dose: 3 ml Documented by: [id number] Sodium Chloride (Nss 1000ml) 500 mls @ 999 mls/hr IV .Q31M ONE Stop: 02/16/20 19:29 Last Infusion: 02/16/20 19:21 Dose: 0 mls/hr Documented by: [id number] Admin: 02/16/20 19:02 Dose: 999 mls/hr Documented by: [id number] Cefoxitin Sodium (Mefoxin) 2,000 mg in 60 mls @ 100 mls/hr IV NOW STA Stop: 02/16/20 20:50 Last Infusion: 02/16/20 21:25 Dose: 0 mls/hr Documented by: [id number] Admin: 02/16/20 20:43 Dose: 100 mls/hr Documented by: [id number] Ondansetron HCl (Ondansetron Inj 2 Mg/Ml 2 Ml Vial) 4 mg IV NOW STA Stop: 02/16/20 18:53 Last Admin: 02/16/20 19:02 Dose: 4 mg Documented by: [id number] Discharge Plan Visit Data Chief Complaint: Chest Pain Stated Complaint: CHEST PAIN ED Provider: Vernon Clancy Discharge Problem: Abdominal pain, acute, right upper quadrant, Substernal chest pain, Leukocytosis, Choledocholithiasis, Elevated LFTs, Cholelithiasis, Elevated troponin Forms Stand Alone Forms: Food on the Table [facility] Dash Prescriptions Prescriptions: No Action hydrochlorothiazide 25 mg tablet 25 mg PO DAILY Qty: 90 RF: 3 Symbicort 160-4.5 mcg/actuation HFA aerosol inhaler 2 puff inhalation BID Qty: 30.6 RF: 3 amlodipine 5 mg tablet 5 mg PO QAM Qty: 90 RF: 1 metoprolol succinate 25 mg tablet extended release 24 hr 25 mg PO DAILY Qty: 90 RF: 3 nortriptyline 25 mg capsule 25 - 50 mg PO HS Qty: 60 RF: 3 gabapentin 300 mg capsule 300 mg PO HS Qty: 90 RF: 3 aspirin 81 mg tablet,delayed release (DR/EC) 81 mg PO UD RF: 0 hydrocodone-acetaminophen 10-325 mg tablet 2 tab PO Q6H MDD 8 tabs PRN (Reason: Pain) Qty: 240 RF: 0 vitamin E 100 unit capsule 100 units PO DAILY RF: 0 Atrovent HFA 17 mcg/actuation HFA aerosol inhaler 2 puffs inhalation QID PRN (Reason: shortness of breath or wheezing) Qty: 1 RF: 0 cholecalciferol (vitamin D3) 25 mcg (1,000 unit) capsule 1,000 units PO DAILY Qty: 90 RF: 0 PreserVision AREDS-2 [id number] le-typz-te-mg Capsule 1 tab PO BID RF: 0 atorvastatin 20 mg tablet 20 mg PO HS RF: 0 ascorbic acid (vitamin C) 1,000 mg Tablet 1 g PO QAM RF: 0 [place]-3 350 mg-235 mg- 90 mg-597 mg Capsule,Delayed Release(Dr/Ec) 1 cap PO QAM RF: 0
[2020-02-16] MEDS ORDERED: SODIUM CHLORIDE 0.9% 1000ML 500 ML IV ONE (18:59)
[2020-02-16] MEDS: HYDROmorphone INJ 0.5 MG/0.5 ML SYR IV PRN ×4 (19:02→23:33)
[2020-02-16 19:04] LABS: Albumin Globulin Ratio 0.7 (0.9-2); Bilirubin,Total 2.6 mg/dl (0.2-1); Globulin 4.4 gm/dl (2.5-4.0); Total Protein 7.3 gm/dl (6.4-8.2); Troponin I 0.093 ng/ml (0-0.045)
--- NOTE | 2020-02-16 19:07 | XRay Report ---
XR chest 1V portable HISTORY: 74 years-old Female Chest Pain acute atypical chest pain COMPARISON: Chest radiograph 09/25/2018 TECHNIQUE: Portable AP view of the chest FINDINGS: Cardiac silhouette is mildly enlarged. Calcified plaque of the thoracic aorta. Mild bibasilar atelect asis. No pneumothorax, large pleural effusion or overt pulmonary edema. Degenerative changes of the s houlders and spine. IMPRESSION: No acute process. ACT 112: Negative or not required by law. The above report was generated using voice recognition software. It may contain grammatical, syntax o r spelling errors. Electronically signed by: Shayne Mendes M.D. 02/16/2020 7:05 PM
[2020-02-16 19:19] LABS: Basophils # (auto) 0.02 K/uL (0-0.2); Basophils % (auto) 0.1 %; Immature Granulocytes # (auto) 0.07 K/uL (0.00-0.02); Immature Granulocytes % (auto) 0.3 %; Lymphocytes # (auto) 0.67 K/uL (1.2-3.4); Monocytes # (auto) 0.65 K/uL (0.11-0.59); Monocytes % (auto) 2.9 %; Neutrophils # (auto) 20.97 K/uL (1.4-6.5); Neutrophils % (auto) 93.7 %
[2020-02-16] MEDS ORDERED: cefOXitin 2,000 MG/60 ML BAG IV STA (20:15)
--- NOTE | 2020-02-16 21:03 | Ultrasound Report ---
US gallbladder HISTORY: 74 years-old Female RUQ pain, elev. LFTs acute right upper quadrant abdominal pain with augusto vated LFTs COMPARISON: Abdominal ultrasound 07/22/2013 TECHNIQUE: Multiple real-time sonographic images of the abdominal right upper quadrant were obtained assessing grayscale appearance and color flow FINDINGS: The visualized pancreas is unremarkable. Common bile duct is mildly dilated measuring up to 1.5 cm. T here is mild intrahepatic biliary ductal dilation. Trace gallbladder sludge. Cholelithiasis with gall stone noted within the gallbladder neck. Sonographic Lindquist sign is negative. No gallbladder wall thi ckening or pericholecystic fluid. There is a linear 2.3 cm echogenicity noted within the distal commo n bile duct. The imaged right kidney is unremarkable without hydronephrosis. IMPRESSION: 1. Moderate extrahepatic with mild intrahepatic biliary ductal dilation. Indeterminate linear echogen ic filling defect is noted within the distal common bile duct. Correlate with laboratory analysis to exclude obstructive etiology. 2. Cholelithiasis without sonographic evidence of acute cholecystitis. ACT 112: Negative or not required by law. The above report was generated using voice recognition software. It may contain grammatical, syntax o r spelling errors. Electronically signed by: Shayne Mendes M.D. 02/16/2020 9:02 PM
[2020-02-16] MEDS ORDERED: ALBUT/IPRATROP 3MG/0.5MG NEB 3 ML VIAL NEB STA (23:22)
--- NOTE | 2020-02-16 23:44 | History & Physical Report ---
Date of Service February 16, 2020 Assessment & Plan (1) Abdominal pain, acute, right upper quadrant: Concern for choledocholilthiasis given filling defect in the distal common bile duct. Patient afebrile, HD stable at present. Ill in appearance. -Admit to PCU -NPO -Mefoxin (Patient does not wish to have Zosyn as it led to c. diff in the past) -Repeat LFTs in AM -GI consultation appreciated -Morphine PRN pain -Zofran PRN nausea -Tylenol PRN pain/fever Present on Admission?: Yes (2) Substernal chest pain: Patient with slight elevation in troponin, stable. No acute EKG changes. Most likely in setting of acute illness, sepsis. -Trend troponin -Telemetry monitoring -Holding ASA for possible intervention -Hold Atorvastatin for elevated LFTs -Continue metoprolol Present on Admission?: Yes (3) Dyslipidemia: Chronic -Holding Atorvastatin Present on Admission?: Yes (4) Hypertension: Chronic. Stable -Hold Amlodipine -Continue Metoprolol -Continue to monitor Present on Admission?: Yes (5) Elevated LFTs: In setting of concerning choledocholithiasis -GI consult as above -General surgery consult -Repeat LFTs Present on Admission?: Yes (6) Chronic obstructive pulmonary disease: Stable respiratory status -Continue Flulticasone/Vilanerol -DuoNebs PRN F/E/N - NSS at 125mL/hr, monitor electrolytes, NPO Ppx - SCDs Code - DNR/DNI Dispo - Admit to PCU Present on Admission?: Yes History of Present Illness Chief Complaint: RUQ pain, nausea Primary Care Provider: Sherry Syed MD 74yo female with history of COPD on 2L O2 qHS, HTN, HLP presenting with complaint of RUQ pain. Patient reports developing acute RUQ pain yesterday AM that radiated to the back with associated nausea and vomiting x 1 episode. This AM she had some epigastric discomfort. She called EMS, Nitro and ASA were given in the field which made her epigastric pain worse. She has subjective fevers and chills, poor appetite and decreased PO intake x 2 days. Denies jaundice/icterus, denies diarrhea. No additional complaints at this time. Allergies Allergy/AdvReac Type Severity Reaction Status Date / Time bacitracin Allergy Unknown EMACERATION Verified 02/16/20 19:13 SKIN AT SITE neomycin Allergy Unknown EMACERATION Verified 02/16/20 19:13 SKIN AT SITE polymyxin B Allergy Unknown EMACERATION Verified 02/16/20 19:13 SKIN AT SITE bupropion AdvReac Severe lips Verified 02/16/20 19:13 swelling Aminoglycosides AdvReac Intermediate Verified 02/16/20 19:13 Home Medications Home Medications Medication Instructions Recorded Confirmed Type [place]-3 1 cap PO QAM 09/25/18 02/16/20 History ascorbic acid (vitamin C) 1 g PO QAM 09/25/18 02/16/20 History vitamin E 100 unit capsule 100 units PO DAILY 10/02/18 02/16/20 History ipratropium bromide 17 2 puffs INHALATION QID PRN #1 gm 10/05/18 02/16/20 History mcg/actuation HFA aerosol inhaler cholecalciferol (vitamin D3) 25 1,000 units PO DAILY #90 cap 04/06/19 02/16/20 History mcg (1,000 unit) capsule hydrochlorothiazide 25 mg tablet 25 mg PO DAILY #90 tab 04/08/19 02/16/20 Rx budesonide-formoterol HFA 160 2 puff INHALATION BID #30.6 gm 10/30/19 02/16/20 Rx mcg-4.5 mcg/actuation aerosol inhaler amlodipine 5 mg tablet 5 mg PO QAM #90 tab 12/02/19 02/16/20 Rx metoprolol succinate 25 mg 25 mg PO DAILY #90 tab 12/18/19 02/16/20 Rx tablet,extended release 24 hr nortriptyline 25 mg capsule 25 - 50 mg PO HS #60 cap 01/26/20 02/16/20 Rx gabapentin 300 mg capsule 300 mg PO HS #90 cap 02/02/20 02/16/20 Rx aspirin 81 mg tablet,delayed 81 mg PO UD 02/03/20 02/16/20 History release hydrocodone 10 mg-acetaminophen 2 tab PO Q6H PRN #240 tab MDD 8 02/03/20 02/16/20 Rx 325 mg tablet tabs atorvastatin 20 mg PO HS 02/16/20 02/16/20 History vit C,N-Lr-vpwxa-lutein-zeaxan 1 tab PO BID 10/26/20 10/26/20 History [PreserVision AREDS-2] Past Med/Surg History Medical History (Updated 02/17/20 @ 03:49 by Payal Mendes DO) Chronic obstructive pulmonary disease Chronic osteoarthritis Clostridium difficile diarrhea DNR (do not resuscitate) Dyslipidemia Hepatic steatosis Hyperparathyroidism, primary Hypertension Impaired fasting glucose Lumbar spinal stenosis Nocturnal hypoxia on nocturnal oxygen therapy Nontoxic multinodular goiter Secondary polycythemia Venous insufficiency Surgical History History of appendectomy History of hip replacement History of knee replacement Family History (Updated 05/09/19 @ 16:06 by Bessie Curran) Other No pertinent family history Social History Smoking Status: Current every day smoker Age Started Using Tobacco: 18; packs per day: 0.5; Cigarettes Per Day: 10; Second Hand Exposure: No; Do You Dip or Chew Tobacco: No; Hx Alcohol Use: No Hx Substance Use: No Preferred Language: Bengali Communication Ability: Effective Guidance Services Coordinator Required: No Beliefs That Will Affect Care: None marital status: Current Living Situation: Spouse current occupational status: retired Other Information That Helps Us Care for You: No Feels Safe at Home: Yes Safety Concerns: Feels Safe At This Time Seatbelt Use: always Sunscreen Use: Yes Assistive Devices: Oxygen - Continuous Review of Systems Review of Systems: All systems reviewed & are unremarkable except as noted in HPI & below Physical Exam Physical Exam: General: patient ill in appearance, in moderate distress secondary to pain Skin: warm, dry, intact, no rashes or lesions HEENT: NC/AT, PERRL, EOMI, anicteric sclera, conjunctiva without injection, external ear normal to inspection and nontender, nares patent, moist mucus membranes, dentition intact, no oropharyngeal lesions, neck supple, trachea midline, no LAD, no thyromegaly, no JVD Heart: +S1/S2, regular, tachycardic with frequent PVCs, no m/r/g Lungs: equal air entry bilaterally, no rales/rhonchi/wheezes Abd: +BS, soft, diffusely tender with voluntary guarding Ext: warm, 2+ pulses in UE/LE bilaterally, no clubbing/cyanosis or edema Neuro: nonfocal, patient AA&O x 4, speech intact, no facial droop, moving all extremities on command with equal strength 5/5 Results & Data Results & Data ([facility]) Vital Signs (Past 12 Hours) Vital Signs Temp Pulse Pulse Resp BP BP Pulse Ox 02/16/20 23:38 104 H 20 96 02/16/20 23:11 85 20 144/80 H 92 02/16/20 21:44 100 H 20 145/85 H 92 02/16/20 20:44 87 20 137/88 95 02/16/20 20:00 77 20 140/70 92 02/16/20 19:05 72 20 137/70 94 02/16/20 18:32 100 H 92 02/16/20 18:04 98 H 17 92 02/16/20 18:00 37.2 C 102 H 20 105/58 L 82 L 02/16/20 17:47 101 H 13 105/58 L 92 Laboratory Results Lab Results 02/16/20 02/16/20 02/16/20 Range/Units 18:11 18:11 18:11 WBC 22.38 H (4.8-10.8) K/uL RBC 4.58 (4.2-5.4) M/uL Hgb 14.6 (12.0-16.0) g/dL Hct 43.6 (37-47) % MCV 95.2 (80-100) fL MCH 31.9 (25-34) pg MCHC 33.5 (32-36) g/dL RDW Std Deviation 52.0 H (36.4-46.3) fL RDW Coeff of Deana 15.0 H (11.5-14.5) % Plt Count 267 (130-400) K/uL MPV 9.1 (7.4-10.4) fL Immature Gran % (Auto) 0.3 % Neut % (Auto) 93.7 % Lymph % (Auto) 3.0 % [place] % (Auto) 2.9 % Eos % (Auto) 0.0 % Baso % (Auto) 0.1 % Neut # (Auto) 20.97 H (1.4-6.5) K/uL Lymph # (Auto) 0.67 L (1.2-3.4) K/uL [place] # (Auto) 0.65 H (0.11-0.59) K/uL Eos # (Auto) 0.00 (0-0.5) K/uL Baso # (Auto) 0.02 (0-0.2) K/uL Immature Gran # (Auto) 0.07 H (0.00-0.02) K/uL PT 11.9 (9.0-12.0) Seconds INR 1.1 (0.9-1.1) APTT 28.3 (21.0-31.0) Seconds PTT Ratio 1.0 Sodium 135 L (136-145) mmol/L Potassium 3.7 (3.5-5.1) mmol/L Chloride 97 L (98-107) mmol/L Carbon Dioxide 30 (21-32) mmol/L Anion Gap 8.0 (3-11) BUN 30 H (7-18) mg/dl Creatinine 1.66 H (0.6-1.2) mg/dl Est Cr Clr Drug Dosing 30.3 ml/min Est GFR ( Amer) 34.6 Est GFR (Non-Af Amer) 29.8 BUN/Creatinine Ratio 17.8 (10-20) Glucose 128 H (70-99) mg/dl Calcium 9.7 (8.5-10.1) mg/dl Phosphorus (2.5-4.9) mg/dl Magnesium (1.8-2.4) mg/dl Total Bilirubin 2.6 H (0.2-1) mg/dl AST 137 H (15-37) U/L ALT 304 H (12-78) U/L Alkaline Phosphatase 448 H (45-117) U/L Troponin I 0.093 H* (0-0.045) ng/ml Total Protein 7.3 (6.4-8.2) gm/dl Albumin 2.9 L (3.4-5.0) gm/dl Globulin 4.4 H (2.5-4.0) gm/dl Albumin/Globulin Ratio 0.7 L (0.9-2) Lipase 94 (73-393) U/L Urine Color Urine Appearance (Clear) Urine pH (4.5-7.5) Ur Specific [place] (1.000-1.030) Urine Protein (Negative) Urine Glucose (UA) (Negative) Urine Ketones (Negative) Urine Blood (Negative) Urine Nitrite (Negative) Urine Bilirubin (Negative) Urine Urobilinogen (Negative) Ur Leukocyte Esterase (Negative) Urine WBC (Auto) (0-5) /hpf Urine RBC (Auto) (0-4) /hpf U Hyaline Cast (Auto) (0-5) /lpf U Epithel Cells (Auto) (0-5) /lpf Urine Bacteria (Auto) (Negative) Granular Casts (0) /lpf Urine Yeast (None Prsent) 02/17/20 02/17/20 Range/Units 00:40 01:19 WBC (4.8-10.8) K/uL RBC (4.2-5.4) M/uL Hgb (12.0-16.0) g/dL Hct (37-47) % MCV (80-100) fL MCH (25-34) pg MCHC (32-36) g/dL RDW Std Deviation (36.4-46.3) fL RDW Coeff of Deana (11.5-14.5) % Plt Count (130-400) K/uL MPV (7.4-10.4) fL Immature Gran % (Auto) % Neut % (Auto) % Lymph % (Auto) % [place] % (Auto) % Eos % (Auto) % Baso % (Auto) % Neut # (Auto) (1.4-6.5) K/uL Lymph # (Auto) (1.2-3.4) K/uL [place] # (Auto) (0.11-0.59) K/uL Eos # (Auto) (0-0.5) K/uL Baso # (Auto) (0-0.2) K/uL Immature Gran # (Auto) (0.00-0.02) K/uL PT (9.0-12.0) Seconds INR (0.9-1.1) APTT (21.0-31.0) Seconds PTT Ratio Sodium (136-145) mmol/L Potassium (3.5-5.1) mmol/L Chloride (98-107) mmol/L Carbon Dioxide (21-32) mmol/L Anion Gap (3-11) BUN (7-18) mg/dl Creatinine (0.6-1.2) mg/dl Est Cr Clr Drug Dosing ml/min Est GFR ( Amer) Est GFR (Non-Af Amer) BUN/Creatinine Ratio (10-20) Glucose (70-99) mg/dl Calcium (8.5-10.1) mg/dl Phosphorus 2.6 (2.5-4.9) mg/dl Magnesium 1.7 L (1.8-2.4) mg/dl Total Bilirubin (0.2-1) mg/dl AST (15-37) U/L ALT (12-78) U/L Alkaline Phosphatase (45-117) U/L Troponin I 0.093 H* (0-0.045) ng/ml Total Protein (6.4-8.2) gm/dl Albumin (3.4-5.0) gm/dl Globulin (2.5-4.0) gm/dl Albumin/Globulin Ratio (0.9-2) Lipase (73-393) U/L Urine Color Dark Yellow Urine Appearance Cloudy A (Clear) Urine pH 5.0 (4.5-7.5) Ur Specific [place] 1.024 (1.000-1.030) Urine Protein 3+ H (Negative) Urine Glucose (UA) Negative (Negative) Urine Ketones Trace H (Negative) Urine Blood Negative (Negative) Urine Nitrite Negative (Negative) Urine Bilirubin 1+ H (Negative) Urine Urobilinogen Negative (Negative) Ur Leukocyte Esterase Trace H (Negative) Urine WBC (Auto) 5-10 H (0-5) /hpf Urine RBC (Auto) 0-4 (0-4) /hpf U Hyaline Cast (Auto) 5-10 H (0-5) /lpf U Epithel Cells (Auto) >30 H (0-5) /lpf Urine Bacteria (Auto) 1+ H (Negative) Granular Casts 5-10 H (0) /lpf Urine Yeast Present A (None Prsent) Diagnostic Findings US gallbladder HISTORY: 74 years-old Female RUQ pain, elev. LFTs acute right upper quadrant abdominal pain with elevated LFTs COMPARISON: Abdominal ultrasound 07/22/2013 TECHNIQUE: Multiple real-time sonographic images of the abdominal right upper quadrant were obtained assessing grayscale appearance and color flow FINDINGS: The visualized pancreas is unremarkable. Common bile duct is mildly dilated measuring up to 1.5 cm. There is mild intrahepatic biliary ductal dilation. Trace gallbladder sludge. Cholelithiasis with gallstone noted within the gallbladder neck. Sonographic Lindquist sign is negative. No gallbladder wall thickening or pericholecystic fluid. There is a linear 2.3 cm echogenicity noted within the distal common bile duct. The imaged right kidney is unremarkable without hydronephrosis. IMPRESSION: 1. Moderate extrahepatic with mild intrahepatic biliary ductal dilation. Indeterminate linear echogenic filling defect is noted within the distal common bile duct. Correlate with laboratory analysis to exclude obstructive etiology. 2. Cholelithiasis without sonographic evidence of acute cholecystitis. ACT 112: Negative or not required by law. The above report was generated using voice recognition software. It may contain grammatical, syntax or spelling errors. Electronically signed by: Shayne Mendes M.D. 02/16/2020 9:02 PM Dictated: 02/16/202058 Transcribed: 02/16/202058 --- XR chest 1V portable HISTORY: 74 years-old Female Chest Pain acute atypical chest pain COMPARISON: Chest radiograph 09/25/2018 TECHNIQUE: Portable AP view of the chest FINDINGS: Cardiac silhouette is mildly enlarged. Calcified plaque of the thoracic aorta. Mild bibasilar atelectasis. No pneumothorax, large pleural effusion or overt pulmonary edema. Degenerative changes of the shoulders and spine. IMPRESSION: No acute process. ACT 112: Negative or not required by law. The above report was generated using voice recognition software. It may contain grammatical, syntax or spelling errors. Electronically signed by: Shayne Mendes M.D. 02/16/2020 7:05 PM Dictated: 02/16/201904 Transcribed: 02/16/201904 ECG Additional Comments: EKG wtih ST at 103, left axis, ZU=313, VHZ=006, MPs=028, +frequent PVCs, ?old inferior infarct, no acute ischemic changes Code Status & VTE Plan Code Status DNR PG Care Time/CCT Total # of Minutes Spent Total Time Spent with Patient: Total time spent is greater than 50% in coordination of care (as documented) at patient's floor/unit and/or counseling patient: Coding Level of Care Code 82250 Initial Inpt Care Lvl 3 Diagnoses Abdominal pain, acute, right upper quadrant R10.11 Substernal chest pain R07.2 Dyslipidemia E78.5 Hypertension I10 Hypertension type: unspecified Elevated LFTs R79.89 Chronic obstructive pulmonary disease J44.9 COPD type: unspecified COPD (1) Hypertension Hypertension type: unspecified Qualified Code(s): I10 - Essential (primary) hypertension (2) Chronic obstructive pulmonary disease COPD type: unspecified COPD Qualified Code(s): J44.9 - Chronic obstructive pulmonary disease, unspecified
[2020-02-17] MEDS ORDERED: ACETAMINOPHEN 325 MG TAB PO PRN (00:42)
[2020-02-17] MEDS ORDERED: DOCUSATE SODIUM 100 MG CAP PO PRN (00:42)
[2020-02-17] MEDS ORDERED: MoRPHine SULFATE 2 MG/ML CARP IV PRN (00:42)
[2020-02-17] MEDS ORDERED: ONDANSETRON INJ 2 MG/ML 2 ML VIAL IV PRN (00:42)
[2020-02-17] MEDS ORDERED: PIPERACILL/TAZOBAC CONSULT ACTIVE PRN ×2 (00:42→08:54)
[2020-02-17 00:53] LABS: Appearance Urine Cloudy (Clear); Blood Urine Negative (Negative); Color Urine Dark Yellow; Epithelial Cell Urine Auto >30 /lpf (0-5); Glucose Urine UA Negative (Negative); Ketones Urine Trace (Negative); Leukocyte Esterase Urine Trace (Negative); Nitrite Urine Negative (Negative); Protein Urine 3+ (Negative); RBC Urine Automated 0-4 /hpf (0-4); Specific Gravity Urine 1.024 (1.000-1.030); Urobilinogen Urine Negative (Negative)
[2020-02-17 01:00] LABS: Bilirubin Urine 1+ (Negative); Ictotest Urine Positive (Negative)
[2020-02-17] MEDS: SODIUM CHLORIDE 0.9% 1000ML 1,000 ML IV SCH ×2 (01:00→09:58)
[2020-02-17] MEDS ORDERED: PIPERACILLIN/TAZOBACTAM 3.375 GM in DEXTROSE 5% 100 ML IV ONE (01:00)
[2020-02-17 01:06] LABS: Bacteria Urine Automated 1+ (Negative)
[2020-02-17] MEDS: FLUTICASONE/VILANTEROL 100/25MCG 14 PUFFS/INHALER INH SCH ×2 (01:44→22:07)
[2020-02-17 02:15] LABS: Magnesium 1.7 mg/dl (1.8-2.4); Phosphorus 2.6 mg/dl (2.5-4.9); Troponin I 0.093 ng/ml (0-0.045)
[2020-02-17] MEDS: MoRPHine SULFATE 2 MG/ML CARP IV PRN ×3 (03:05→22:27)
[2020-02-17] MEDS ORDERED: ALBUT/IPRATROP 3MG/0.5MG NEB 3 ML VIAL NEB PRN (03:49)
[2020-02-17] MEDS ORDERED: cefOXitin 2,000 MG in DEXTROSE 5% 50 ML IV SCH (04:00)
[2020-02-17] MEDS ORDERED: PIPERACILLIN/TAZOBACTAM 3.375 GM in DEXTROSE 5% 100 ML IV SCH (06:00)
[2020-02-17] MEDS ORDERED: CEFEPIME 2,000 MG in SYRINGE 0 ML IV SCH (06:00)
[2020-02-17] MEDS ORDERED: INDOMETHACIN 50 MG SUPP PR ONE ×2 (08:55→19:30)
[2020-02-17] MEDS ORDERED: amLODIPine BESYLATE 5 MG TAB PO SCH (09:00)
[2020-02-17] MEDS: METOPROLOL SUCC 25MG EXT REL TAB PO SCH (09:08)
[2020-02-17] MEDS ORDERED: Nursing to Pharmacy Communication SCH (09:15)
[2020-02-17 09:23] LABS: Albumin Level 2.6 gm/dl (3.4-5.0); Bilirubin Direct 1.3 mg/dl (0-0.2); Calcium 9.2 mg/dl (8.5-10.1); Creatinine Clr Calc Pharmacy 39.8 ml/min; Est GFR (African American) 49.2; Est GFR (Non-African American) 42.5; Potassium 3.3 mmol/L (3.5-5.1)
[2020-02-17 09:34] LABS: Bilirubin,Total 1.7 mg/dl (0.2-1); Total Protein 6.8 gm/dl (6.4-8.2); Troponin I 0.128 ng/ml (0-0.045)
--- NOTE | 2020-02-17 09:48 | Gastrointestinal Consultation ---
Date of Consultation February 17, 2020 Assessment & Plan (1) Choledocholithiasis: Pt is a 74 y/o female w RUQ abd pain radiating to back, nausea, subjective fever, chills. On eval noted to have elevated LFTs and u/s evidence of cholelithiasis w biliary dilation concerning for choledocholithiasis - Keep NPO - Changed antibx to Zosyn IV - Plan for EUS/ERCP by Dr. Couch today in OR - Surgery consulted to consider cholecystectomy Supervising Physician Co-Signing Physician Notes I performed a history and physical examination of the patient today, including specifically on physical exam - soft abdomen. I have discussed the patient's management with the advanced practitioner. Please refer to the nurse practitioner's note for the documented findings and plan of care. Likely cholangitis. EUS/ERCP today History of Present Illness Reason for Consultation: Eval for possible ERCP Requesting Physician: Dr. Jarocho Lagos Attending Physician: Dr. Casey Couch History of Present Illness Pt is a 74 y/o female who presented yesterday w c/o RUQ abd pain radiating to back x 2 days. She also felt feverish, having chills. Mild nausea w/o vomiting. On evaluation noted to have elevated LFTs, normal lipase. Gallbladder u/s showed moderate extrahepatic with mild intrahepatic biliary ductal dilation. Indeterminate linear echogenic filling defect is noted within the distal common bile duct. She also has cholelithiasis without sonographic evidence of acute cholecystitis. Pt denies sick contact. Only new med is Trelegy inhaler. Denies recent antibx in outpt setting. Denies APAP uses, ETOH. She has hx of COPD, on O2 at HS, active smoker. Allergies Allergy/AdvReac Type Severity Reaction Status Date / Time bacitracin Allergy Unknown EMACERATION Verified 02/16/20 19:13 SKIN AT SITE neomycin Allergy Unknown EMACERATION Verified 02/16/20 19:13 SKIN AT SITE polymyxin B Allergy Unknown EMACERATION Verified 02/16/20 19:13 SKIN AT SITE bupropion AdvReac Severe lips Verified 02/16/20 19:13 swelling Aminoglycosides AdvReac Intermediate Verified 02/16/20 19:13 Home Medications Home Medications Medication Instructions Recorded Confirmed Type [place]-3 1 cap PO QAM 09/25/18 02/16/20 History ascorbic acid (vitamin C) 1 g PO QAM 09/25/18 02/16/20 History vitamin E 100 unit capsule 100 units PO DAILY 10/02/18 02/16/20 History ipratropium bromide 17 2 puffs INHALATION QID PRN #1 gm 10/05/18 02/16/20 History mcg/actuation HFA aerosol inhaler cholecalciferol (vitamin D3) 25 1,000 units PO DAILY #90 cap 04/06/19 02/16/20 History mcg (1,000 unit) capsule hydrochlorothiazide 25 mg tablet 25 mg PO DAILY #90 tab 04/08/19 02/16/20 Rx budesonide-formoterol HFA 160 2 puff INHALATION BID #30.6 gm 10/30/19 02/16/20 Rx mcg-4.5 mcg/actuation aerosol inhaler amlodipine 5 mg tablet 5 mg PO QAM #90 tab 12/02/19 02/16/20 Rx metoprolol succinate 25 mg 25 mg PO DAILY #90 tab 12/18/19 02/16/20 Rx tablet,extended release 24 hr nortriptyline 25 mg capsule 25 - 50 mg PO HS #60 cap 01/26/20 02/16/20 Rx gabapentin 300 mg capsule 300 mg PO HS #90 cap 02/02/20 02/16/20 Rx aspirin 81 mg tablet,delayed 81 mg PO UD 02/03/20 02/16/20 History release hydrocodone 10 mg-acetaminophen 2 tab PO Q6H PRN #240 tab MDD 8 02/03/20 02/16/20 Rx 325 mg tablet tabs atorvastatin 20 mg PO HS 02/16/20 02/16/20 History vit C,B-Kd-qefpw-lutein-zeaxan 1 tab PO BID 02/16/20 02/16/20 History [PreserVision AREDS-2] Patient History Medical History Chronic obstructive pulmonary disease Chronic osteoarthritis Clostridium difficile diarrhea DNR (do not resuscitate) Dyslipidemia Hepatic steatosis Hyperparathyroidism, primary Hypertension Impaired fasting glucose Lumbar spinal stenosis Nocturnal hypoxia on nocturnal oxygen therapy Nontoxic multinodular goiter Secondary polycythemia Venous insufficiency Surgical History History of appendectomy History of hip replacement History of knee replacement Family History Other No pertinent family history Social History Smoking Status: Current every day smoker Age Started Using Tobacco: 18; packs per day: 0.5; Cigarettes Per Day: 10; Second Hand Exposure: No; Do You Dip or Chew Tobacco: No; Hx Alcohol Use: No Hx Substance Use: No Preferred Language: Sinhala Communication Ability: Effective Coordinator Of Rehabilitation Services Required: No Beliefs That Will Affect Care: None marital status: Current Living Situation: Spouse current occupational status: retired Other Information That Helps Us Care for You: No Feels Safe at Home: Yes Safety Concerns: Feels Safe At This Time Seatbelt Use: always Sunscreen Use: Yes Assistive Devices: Oxygen - Continuous Review of Systems Review of Systems: All systems reviewed & are unremarkable except as noted in HPI & below Physical Exam Constitutional: WD/WN, vitals as above well groomed and cooperative Eyes: PERRL, conjunctivae normal, anicteric sclerae ENMT: external ear and nose normal, oropharynx normal Respiratory: Coarse lung sounds bilateraly Cardiovascular: RRR, no murmur, no edema Gastrointestinal (Abdomen): Inspection/Auscultation: + hypoactive bowel sounds; abdomen not distended Percussion/Palpation: + abdomen tender (RUQ) and abdomen soft; no guarding Skin: no rashes, warm and dry Psychiatric: A+Ox3, euthymic affect Lymphatic: no lymphedema Results & Data ([facility]) Vital Signs (Past 12 Hours) Vital Signs Temp Pulse Pulse Resp BP Pulse Ox 02/17/20 07:58 37.0 C 99 H 19 154/74 H 90 02/17/20 04:29 37.8 C H 100 H 20 145/80 H 91 02/17/20 01:07 103 H 02/17/20 00:44 37.1 C 103 H 20 128/75 87 L 02/17/20 00:06 97 H 20 126/86 91 02/16/20 23:38 104 H 20 96 02/16/20 23:11 85 20 144/80 H 92 02/16/20 21:44 100 H 20 145/85 H 92
[2020-02-17 09:52] LABS: Basophils # (auto) 0.01 K/uL (0-0.2); Basophils % (auto) 0.1 %; Hematocrit (blood only) 42.1 % (37-47); Hemoglobin 14.2 g/dL (12.0-16.0); Immature Granulocytes # (auto) 0.05 K/uL (0.00-0.02); Immature Granulocytes % (auto) 0.3 %; Lymphocytes # (auto) 0.59 K/uL (1.2-3.4); Mean Corpuscular Hemoglobin 31.8 pg (25-34); Mean Corpuscular Hgb Conc 33.7 g/dL (32-36); Mean Corpuscular Volume 94.4 fL (80-100); Mean Platelet Volume 9.7 fL (7.4-10.4); Monocytes # (auto) 0.87 K/uL (0.11-0.59); Monocytes % (auto) 5.9 %; Neutrophils # (auto) 13.11 K/uL (1.4-6.5); Neutrophils % (auto) 89.7 %; Platelet Count 228 K/uL (130-400); RDW Coefficient of Variation 14.8 % (11.5-14.5); RDW Standard Deviation 51.1 fL (36.4-46.3); Red Blood Count 4.46 M/uL (4.2-5.4); White Blood Count 14.63 K/uL (4.8-10.8)
[2020-02-17] MEDS: PIPERACILLIN/TAZOBACTAM 3.375 GM in DEXTROSE 5% 100 ML IV ONE ×2 (11:15→12:59)
[2020-02-17] MEDS: SACCHAROMYCES BOULARDII 250 MG CAP PO SCH (11:15)
[2020-02-17] MEDS ORDERED: IOVERSOL 50ml IV ONE (12:40)
--- NOTE | 2020-02-17 13:55 | Post Operative Brief Note ---
Immediate Post Op Note v1 Date of Surgery February 17, 2020, this wrong note, discard I identified the patient and participated in the time-out.: No Procedure Operation Date: 02/17/20 08:25 <No data on this case meets the specified criteria> Operation Date: 02/18/20 10:40 <No data Surgeon Manuel Mcintosh MD
--- NOTE | 2020-02-17 15:47 | Anesthesiology Consultation ---
Date of Service February 17, 2020 Covid 19 negative today. Assessment & Plan (1) Encounter for pre-operative examination: Chart Review Chart Review: Acceptable Risk for Surgery and Patient NOT seen in Pre Admission Testing Consults Requested none History Surgery Operation Date: 02/17/20 08:25 Proposed Procedures p Endoscopic Retrograde Cholangiopancreatogram - Casey Couch MD s Endoscopic Ultrasonography Upper - Casey Couch MD Operation Date: 02/18/20 10:40 Proposed Procedures p Laparoscopic Cholecystectomy - Manuel Mcintosh MD Height/Weight Height: 5 ft 3 in Weight: 82.3 kg Allergies Allergy/AdvReac Type Severity Reaction Status Date / Time bacitracin Allergy Unknown EMACERATION Verified 02/16/20 19:13 SKIN AT SITE neomycin Allergy Unknown EMACERATION Verified 02/16/20 19:13 SKIN AT SITE polymyxin B Allergy Unknown EMACERATION Verified 02/16/20 19:13 SKIN AT SITE bupropion AdvReac Severe lips Verified 02/16/20 19:13 swelling Aminoglycosides AdvReac Intermediate Verified 02/16/20 19:13 Medications Home Medications Medication Instructions Recorded Confirmed Last Taken [place]-3 1 cap PO QAM 09/25/18 02/16/20 02/16/20 ascorbic acid (vitamin C) 1 g PO QAM 09/25/18 02/16/20 02/16/20 vitamin E 100 unit capsule 100 units PO DAILY 10/02/18 02/16/20 02/16/20 ipratropium bromide 17 2 puffs INHALATION QID PRN #1 gm 10/05/18 02/16/20 Unknown mcg/actuation HFA aerosol inhaler cholecalciferol (vitamin D3) 25 1,000 units PO DAILY #90 cap 04/06/19 02/16/20 02/16/20 mcg (1,000 unit) capsule hydrochlorothiazide 25 mg tablet 25 mg PO DAILY #90 tab 04/08/19 02/16/20 02/16/20 budesonide-formoterol HFA 160 2 puff INHALATION BID #30.6 gm 10/30/19 02/16/20 Unknown mcg-4.5 mcg/actuation aerosol inhaler amlodipine 5 mg tablet 5 mg PO QAM #90 tab 12/02/19 02/16/20 02/16/20 metoprolol succinate 25 mg 25 mg PO DAILY #90 tab 12/18/19 02/16/20 02/16/20 tablet,extended release 24 hr nortriptyline 25 mg capsule 25 - 50 mg PO HS #60 cap 01/26/20 02/16/20 Unknown gabapentin 300 mg capsule 300 mg PO HS #90 cap 02/02/20 02/16/20 Unknown aspirin 81 mg tablet,delayed 81 mg PO UD 02/03/20 02/16/20 02/16/20 release hydrocodone 10 mg-acetaminophen 2 tab PO Q6H PRN #240 tab MDD 8 02/03/20 02/16/20 Unknown 325 mg tablet tabs atorvastatin 20 mg PO HS 02/16/20 02/16/20 Unknown vit C,V-Xq-gprbu-lutein-zeaxan 1 tab PO BID 02/16/20 02/16/20 Unknown [PreserVision AREDS-2] Active Medications Generic Name Dose Route Start Last Admin Trade Name Freq PRN Reason Stop Dose Admin Fluticasone/Vilanterol 1 puffs 02/17/20 01:00 02/17/20 01:44 Fluticasone/Vilanterol 100/25mcg 14 Puffs/Inhaler INH 03/18/20 00:59 1 puffs HS THOMAS Administration Sodium Chloride 1,000 mls @ 125 mls/hr 02/17/20 00:42 02/17/20 09:58 Nss 1000ml IV 02/17/20 16:41 125 mls/hr .Q8H THOMAS Administration Metoprolol Succinate 25 mg 02/17/20 09:00 02/17/20 09:08 Metoprolol Succ 25mg Ext Rel Tab PO 03/18/20 08:59 25 mg DAILY THOMAS Administration Morphine Sulfate 1 mg 02/17/20 02:51 02/17/20 05:25 Morphine Sulfate 2 Mg/Ml Carp IV 03/02/20 00:41 1 mg Q2H PRN Administration Pain Saccharomyces Boulardii 250 mg 02/17/20 09:00 02/17/20 11:15 Saccharomyces Boulardii 250 Mg Cap PO 03/18/20 08:59 Not Given DAILY THOMAS NPO Date Last Intake of Fluids: 02/17/20 Time Last Intake of Fluids: 09:00 Date Last Intake of Solids: 02/15/20 Past Medical History Medical History Chronic obstructive pulmonary disease Chronic osteoarthritis Clostridium difficile diarrhea DNR (do not resuscitate) Dyslipidemia Hepatic steatosis Hyperparathyroidism, primary Hypertension Impaired fasting glucose Lumbar spinal stenosis Nocturnal hypoxia on nocturnal oxygen therapy Nontoxic multinodular goiter Secondary polycythemia Venous insufficiency Past Family History Family History Other No pertinent family history Past Surgical History Surgical History History of appendectomy History of hip replacement History of knee replacement Social History Smoking Status: Current every day smoker tobacco type: cigarettes Smoking cigarettes per day: 10 Do You Dip or Chew Tobacco: No Hx Alcohol Use: No Hx Substance Use: No Physical Exam Vital Signs Last Vital Signs Temp 37.7 C H 02/17/20 15:30 Pulse 98 H 02/17/20 15:30 Resp 18 02/17/20 15:30 BP 148/76 H 02/17/20 15:30 Pulse Ox 92 02/17/20 15:30 Testing Laboratory Results 02/17/20 08:42 02/17/20 08:42 PT 11.9 Seconds (9.0-12.0) 02/16/20 18:11 INR 1.1 (0.9-1.1) 02/16/20 18:11 APTT 28.3 Seconds (21.0-31.0) 02/16/20 18:11 Urine Color Dark Yellow 02/17/20 00:40 Urine Appearance Cloudy (Clear) A 02/17/20 00:40 Urine pH 5.0 (4.5-7.5) 02/17/20 00:40 Ur Specific [place] 1.024 (1.000-1.030) 02/17/20 00:40 Urine Protein 3+ (Negative) H 02/17/20 00:40 Urine Glucose (UA) Negative (Negative) 02/17/20 00:40 Urine Ketones Trace (Negative) H 02/17/20 00:40 Urine Nitrite Negative (Negative) 02/17/20 00:40 Ur Leukocyte Esterase Trace (Negative) H 02/17/20 00:40 Urine WBC (Auto) 5-10 /hpf (0-5) H 02/17/20 00:40 Urine RBC (Auto) 0-4 /hpf (0-4) 02/17/20 00:40 U Hyaline Cast (Auto) 5-10 /lpf (0-5) H 02/17/20 00:40 U Epithel Cells (Auto) >30 /lpf (0-5) H 02/17/20 00:40 Urine Bacteria (Auto) 1+ (Negative) H 02/17/20 00:40 Electrocardiogram Date: 02/16/20 ST with PVCs rate 103, old inferior infarct noted on 2019 EKG Chest X-Ray Date: 02/16/20 XR chest 1V portable HISTORY: 74 years-old Female Chest Pain acute atypical chest pain COMPARISON: Chest radiograph 09/25/2018 TECHNIQUE: Portable AP view of the chest FINDINGS: Cardiac silhouette is mildly enlarged. Calcified plaque of the thoracic aorta. Mild bibasilar atelectasis. No pneumothorax, large pleural effusion or overt pulmonary edema. Degenerative changes of the shoulders and spine. IMPRESSION: No acute process. ACT 112: Negative or not required by law. The above report was generated using voice recognition software. It may contain grammatical, syntax or spelling errors. Electronically signed by: Shayne Mendes M.D. 02/16/2020 7:05 PM Dictated: 02/16/201904 Transcribed: 02/16/201904
--- NOTE | 2020-02-17 15:52 | Surgery Consultation ---
Date of Consultation February 17, 2020 Assessment & Plan (1) Choledocholithiasis: (2) Cholelithiasis: pt is a 74 year-old female who was admitted to hospital for abdominal pain, IMP: cholelithiasis Plan, I recommend to do laparoscopic cholecystectomy after ERCP tomorrow, D/W benefits, risks and alternatives of the surgery, pt agrees with the surgery, I answered all questions, Present on Admission?: Yes Supervising Physician Co-Signing Physician Notes I performed a history and physical examination of the patient today, including specifically on physical exam - soft abdomen. I have discussed the patient's management with the advanced practitioner. Please refer to the nurse practitioner's note for the documented findings and plan of care. Likely cholangitis. EUS/ERCP today History of Present Illness Attending Physician: Jarocho Lagos DO History of Present Illness Chief Complaint: RUQ pain, nausea Primary Care Provider: Sherry Syed MD 74yo female with history of COPD on 2L O2 qHS, HTN, HLP presenting with complaint of RUQ pain. Patient reports developing acute RUQ pain yesterday AM that radiated to the back with associated nausea and vomiting x 1 episode. This AM she had some epigastric discomfort. She called EMS, Nitro and ASA were given in the field which made her epigastric pain worse. She has subjective fevers and chills, poor appetite and decreased PO intake x 2 days. Denies jaundice/icterus, denies diarrhea. No additional complaints at this time. I ( Manuel Mcintosh mD ) got a call for consult cholelithiasis, I reviewed pt's H/P, labs and U/S with pt, pt will have ERCP today, Allergies Allergy/AdvReac Type Severity Reaction Status Date / Time bacitracin Allergy Unknown EMACERATION Verified 02/16/20 19:13 SKIN AT SITE neomycin Allergy Unknown EMACERATION Verified 02/16/20 19:13 SKIN AT SITE polymyxin B Allergy Unknown EMACERATION Verified 02/16/20 19:13 SKIN AT SITE bupropion AdvReac Severe lips Verified 02/16/20 19:13 swelling Aminoglycosides AdvReac Intermediate Verified 02/16/20 19:13 Home Medications Home Medications Medication Instructions Recorded Confirmed Type [place]-3 1 cap PO QAM 09/25/18 02/16/20 History ascorbic acid (vitamin C) 1 g PO QAM 09/25/18 02/16/20 History vitamin E 100 unit capsule 100 units PO DAILY 10/02/18 02/16/20 History ipratropium bromide 17 2 puffs INHALATION QID PRN #1 gm 10/05/18 02/16/20 History mcg/actuation HFA aerosol inhaler cholecalciferol (vitamin D3) 25 1,000 units PO DAILY #90 cap 04/06/19 02/16/20 History mcg (1,000 unit) capsule hydrochlorothiazide 25 mg tablet 25 mg PO DAILY #90 tab 04/08/19 02/16/20 Rx budesonide-formoterol HFA 160 2 puff INHALATION BID #30.6 gm 10/30/19 02/16/20 Rx mcg-4.5 mcg/actuation aerosol inhaler amlodipine 5 mg tablet 5 mg PO QAM #90 tab 12/02/19 02/16/20 Rx metoprolol succinate 25 mg 25 mg PO DAILY #90 tab 12/18/19 02/16/20 Rx tablet,extended release 24 hr nortriptyline 25 mg capsule 25 - 50 mg PO HS #60 cap 01/26/20 02/16/20 Rx gabapentin 300 mg capsule 300 mg PO HS #90 cap 02/02/20 02/16/20 Rx aspirin 81 mg tablet,delayed 81 mg PO UD 02/03/20 02/16/20 History release hydrocodone 10 mg-acetaminophen 2 tab PO Q6H PRN #240 tab MDD 8 02/03/20 02/16/20 Rx 325 mg tablet tabs atorvastatin 20 mg PO HS 02/16/20 02/16/20 History vit C,F-Ih-matad-lutein-zeaxan 1 tab PO BID 02/16/20 02/16/20 History [PreserVision AREDS-2] Past Med/Surg History Medical History (Updated 02/17/20 @ 03:49 by Payal Mendes DO) Chronic obstructive pulmonary disease Chronic osteoarthritis Clostridium difficile diarrhea DNR (do not resuscitate) Dyslipidemia Hepatic steatosis Hyperparathyroidism, primary Hypertension Impaired fasting glucose Lumbar spinal stenosis Nocturnal hypoxia on nocturnal oxygen therapy Nontoxic multinodular goiter Secondary polycythemia Venous insufficiency Surgical History History of appendectomy History of hip replacement History of knee replacement Family History (Updated 05/09/19 @ 16:06 by Bessie Curran) Other No pertinent family history Social History Smoking Status: Current every day smoker Age Started Using Tobacco: 18; packs per day: 0.5; Cigarettes Per Day: 10; Second Hand Exposure: No; Do You Dip or Chew Tobacco: No; Hx Alcohol Use: No Hx Substance Use: No Preferred Language: Portuguese Communication Ability: Effective Fixed Income Analyst Required: No Beliefs That Will Affect Care: None marital status: Current Living Situation: Spouse current occupational status: retired Other Information That Helps Us Care for You: No Feels Safe at Home: Yes Safety Concerns: Feels Safe At This Time Seatbelt Use: always Sunscreen Use: Yes Assistive Devices: Oxygen - Continuous Review of Systems Review of Systems: All systems reviewed & are unremarkable except as noted in HPI & below Allergies Allergy/AdvReac Type Severity Reaction Status Date / Time bacitracin Allergy Unknown EMACERATION Verified 02/16/20 19:13 SKIN AT SITE neomycin Allergy Unknown EMACERATION Verified 02/16/20 19:13 SKIN AT SITE polymyxin B Allergy Unknown EMACERATION Verified 02/16/20 19:13 SKIN AT SITE bupropion AdvReac Severe lips Verified 02/16/20 19:13 swelling Aminoglycosides AdvReac Intermediate Verified 02/16/20 19:13 Home Medications Home Medications Medication Instructions Recorded Confirmed Type [place]-3 1 cap PO QAM 09/25/18 02/16/20 History ascorbic acid (vitamin C) 1 g PO QAM 09/25/18 02/16/20 History vitamin E 100 unit capsule 100 units PO DAILY 10/02/18 02/16/20 History ipratropium bromide 17 2 puffs INHALATION QID PRN #1 gm 10/05/18 02/16/20 History mcg/actuation HFA aerosol inhaler cholecalciferol (vitamin D3) 25 1,000 units PO DAILY #90 cap 04/06/19 02/16/20 History mcg (1,000 unit) capsule hydrochlorothiazide 25 mg tablet 25 mg PO DAILY #90 tab 04/08/19 02/16/20 Rx budesonide-formoterol HFA 160 2 puff INHALATION BID #30.6 gm 10/30/19 02/16/20 Rx mcg-4.5 mcg/actuation aerosol inhaler amlodipine 5 mg tablet 5 mg PO QAM #90 tab 12/02/19 02/16/20 Rx metoprolol succinate 25 mg 25 mg PO DAILY #90 tab 12/18/19 02/16/20 Rx tablet,extended release 24 hr nortriptyline 25 mg capsule 25 - 50 mg PO HS #60 cap 01/26/20 02/16/20 Rx gabapentin 300 mg capsule 300 mg PO HS #90 cap 02/02/20 02/16/20 Rx aspirin 81 mg tablet,delayed 81 mg PO UD 02/03/20 02/16/20 History release hydrocodone 10 mg-acetaminophen 2 tab PO Q6H PRN #240 tab MDD 8 02/03/20 02/16/20 Rx 325 mg tablet tabs atorvastatin 20 mg PO HS 02/16/20 02/16/20 History vit C,X-Uq-nyosx-lutein-zeaxan 1 tab PO BID 02/16/20 02/16/20 History [PreserVision AREDS-2] Patient History Medical History Chronic obstructive pulmonary disease Chronic osteoarthritis Clostridium difficile diarrhea DNR (do not resuscitate) Dyslipidemia Hepatic steatosis Hyperparathyroidism, primary Hypertension Impaired fasting glucose Lumbar spinal stenosis Nocturnal hypoxia on nocturnal oxygen therapy Nontoxic multinodular goiter Secondary polycythemia Venous insufficiency Surgical History History of appendectomy History of hip replacement History of knee replacement Family History Other No pertinent family history Social History Smoking Status: Current every day smoker Age Started Using Tobacco: 18; packs per day: 0.5; Cigarettes Per Day: 10; Second Hand Exposure: No; Do You Dip or Chew Tobacco: No; Hx Alcohol Use: No Hx Substance Use: No Preferred Language: Portuguese Communication Ability: Effective Fixed Income Analyst Required: No Beliefs That Will Affect Care: None marital status: Current Living Situation: Spouse current occupational status: retired Other Information That Helps Us Care for You: No Feels Safe at Home: Yes Safety Concerns: Feels Safe At This Time Seatbelt Use: always Sunscreen Use: Yes Assistive Devices: Oxygen - Continuous Review of Systems Review of Systems: All systems reviewed & are unremarkable except as noted in HPI & below Constitutional: as per Subjective / HPI Eyes: as per Subjective / HPI Ear, Nose, Mouth, Throat: as per Subjective / HPI Respiratory: as per Subjective / HPI COPD Cardiovascular: as per Subjective / HPI Additional Comments: HTN, Chest pain Gastrointestinal: as per Subjective / HPI Genitourinary: as per Subjective / HPI Musculoskeletal: as per Subjective / HPI spinal stenosis Integumentary: as per Subjective / HPI Neurologic: as per Subjective / HPI Psychiatric: as per Subjective / HPI Endocrine: as per Subjective / HPI Hematologic / Lymphatic: as per Subjective / HPI Physical Exam Constitutional: WD/WN, vitals as above well developed and well nourished Eyes: PERRL, conjunctivae normal, anicteric sclerae ENMT: external ear and nose normal, oropharynx normal Neck: trachea midline, no thyromegaly Respiratory: normal respiratory effort, lungs clear to auscultation normal respiratory effort Cardiovascular: RRR, no murmur, no edema Rate/Rhythm: regular rate and regular rhythm Gastrointestinal (Abdomen): soft, mild tenderness at RUQ, no rebound pain, BS +no distend Musculoskeletal: no cyanosis or clubbing, extremities motor strength 5/5 Skin: no rashes, warm and dry Neurologic: patellar DTR's 2+ bilat, sensation intact Psychiatric: Orientation: alert and oriented x 3 Results & Data ([facility]) Vital Signs (Past 12 Hours) Vital Signs Temp Pulse Pulse Pulse Resp BP Pulse Ox 02/17/20 15:30 37.7 C H 98 H 18 148/76 H 92 02/17/20 15:10 37.1 C 91 H 18 151/84 H 93 02/17/20 11:45 36.7 C 104 H 19 157/73 H 93 02/17/20 07:58 37.0 C 99 H 19 154/74 H 90 02/17/20 07:50 97 H 02/17/20 04:29 37.8 C H 100 H 20 145/80 H 91 Laboratory Results Abnormal lab results 02/16/20 02/16/20 02/17/20 Range/Units 18:11 18:11 00:40 WBC 22.38 H (4.8-10.8) K/uL RDW Std Deviation 52.0 H (36.4-46.3) fL RDW Coeff of Deana 15.0 H (11.5-14.5) % Neut # (Auto) 20.97 H (1.4-6.5) K/uL Lymph # (Auto) 0.67 L (1.2-3.4) K/uL [place] # (Auto) 0.65 H (0.11-0.59) K/uL Immature Gran # (Auto) 0.07 H (0.00-0.02) K/uL Sodium 135 L (136-145) mmol/L Potassium (3.5-5.1) mmol/L Chloride 97 L (98-107) mmol/L BUN 30 H (7-18) mg/dl Creatinine 1.66 H (0.6-1.2) mg/dl BUN/Creatinine Ratio (10-20) Glucose 128 H (70-99) mg/dl Magnesium (1.8-2.4) mg/dl Total Bilirubin 2.6 H (0.2-1) mg/dl Direct Bilirubin (0-0.2) mg/dl AST 137 H (15-37) U/L ALT 304 H (12-78) U/L Alkaline Phosphatase 448 H (45-117) U/L Troponin I 0.093 H* (0-0.045) ng/ml Albumin 2.9 L (3.4-5.0) gm/dl Globulin 4.4 H (2.5-4.0) gm/dl Albumin/Globulin Ratio 0.7 L (0.9-2) Urine Appearance Cloudy A (Clear) Urine Protein 3+ H (Negative) Urine Ketones Trace H (Negative) Urine Bilirubin 1+ H (Negative) Ur Leukocyte Esterase Trace H (Negative) Urine WBC (Auto) 5-10 H (0-5) /hpf U Hyaline Cast (Auto) 5-10 H (0-5) /lpf U Epithel Cells (Auto) >30 H (0-5) /lpf Urine Bacteria (Auto) 1+ H (Negative) Granular Casts 5-10 H (0) /lpf Urine Yeast Present A (None Prsent) 10/27/20 10/27/20 10/27/20 Range/Units 01:19 08:42 08:42 WBC 14.63 H (4.8-10.8) K/uL RDW Std Deviation 51.1 H (36.4-46.3) fL RDW Coeff of Deana 14.8 H (11.5-14.5) % Neut # (Auto) 13.11 H (1.4-6.5) K/uL Lymph # (Auto) 0.59 L (1.2-3.4) K/uL [place] # (Auto) 0.87 H (0.11-0.59) K/uL Immature Gran # (Auto) 0.05 H (0.00-0.02) K/uL Sodium 135 L (136-145) mmol/L Potassium 3.3 L (3.5-5.1) mmol/L Chloride (98-107) mmol/L BUN 26 H (7-18) mg/dl Creatinine 1.24 H D (0.6-1.2) mg/dl BUN/Creatinine Ratio 21.0 H (10-20) Glucose 123 H (70-99) mg/dl Magnesium 1.7 L (1.8-2.4) mg/dl Total Bilirubin 1.7 H (0.2-1) mg/dl Direct Bilirubin 1.3 H (0-0.2) mg/dl AST 71 H (15-37) U/L ALT 207 H (12-78) U/L Alkaline Phosphatase 377 H (45-117) U/L Troponin I 0.093 H* 0.128 H* (0-0.045) ng/ml Albumin 2.6 L (3.4-5.0) gm/dl Globulin (2.5-4.0) gm/dl Albumin/Globulin Ratio (0.9-2) Urine Appearance (Clear) Urine Protein (Negative) Urine Ketones (Negative) Urine Bilirubin (Negative) Ur Leukocyte Esterase (Negative) Urine WBC (Auto) (0-5) /hpf U Hyaline Cast (Auto) (0-5) /lpf U Epithel Cells (Auto) (0-5) /lpf Urine Bacteria (Auto) (Negative) Granular Casts (0) /lpf Urine Yeast (None Prsent) Diagnostic Findings US gallbladder HISTORY: 74 years-old Female RUQ pain, elev. LFTs acute right upper quadrant abdominal pain with elevated LFTs COMPARISON: Abdominal ultrasound 07/22/2013 TECHNIQUE: Multiple real-time sonographic images of the abdominal right upper quadrant were obtained assessing grayscale appearance and color flow FINDINGS: The visualized pancreas is unremarkable. Common bile duct is mildly dilated measuring up to 1.5 cm. There is mild intrahepatic biliary ductal dilation. Trace gallbladder sludge. Cholelithiasis with gallstone noted within the gallbladder neck. Sonographic Lindquist sign is negative. No gallbladder wall thickening or pericholecystic fluid. There is a linear 2.3 cm echogenicity noted within the distal common bile duct. The imaged right kidney is unremarkable without hydronephrosis. IMPRESSION: 1. Moderate extrahepatic with mild intrahepatic biliary ductal dilation. Indeterminate linear echogenic filling defect is noted within the distal common bile duct. Correlate with laboratory analysis to exclude obstructive etiology. 2. Cholelithiasis without sonographic evidence of acute cholecystitis.
--- NOTE | 2020-02-17 17:49 | History & Physical Bridge Note ---
Date of Service February 17, 2020 History & Physical Bridge Note I have examined the patient, reviewed the History & Physical and in the interval since the performance of the History & Physical I have noted the following changes of clinical significance: no changes noted
[2020-02-17] MEDS ORDERED: fentaNYL citrate 100 MCG/2 ML VIAL ONE ×2 (18:15→19:07)
[2020-02-17] MEDS ORDERED: ESMOLOL HCL INJ 10 MG/ML 10ML VIAL IV ONE (18:52)
[2020-02-17] MEDS ORDERED: LIDOCAINE HCL 2% 2 ML VIAL/AMP(20MG/ML) INFIL ONE (19:03)
[2020-02-17] MEDS ORDERED: SUCCINYLCHOLINE CHLORIDE 20 MG/ML 10 ML VIAL IV ONE (19:03)
[2020-02-17] MEDS ORDERED: PROPOFOL IV EMULSION 10 MG/ML 20 ML VIAL IV ONE (19:03)
[2020-02-17] MEDS ORDERED: ONDANSETRON INJ 2 MG/ML 2 ML VIAL ONE (19:03)
--- NOTE | 2020-02-17 19:33 | Operative Report ---
Post Operative Report Pre & Post Diagnosis Operation Date: 02/17/20 08:25 Pre-Op Diagnosis: Choledocholithiasis Post-Op Diagnosis: Choledocholithiasis Operation Date: 02/18/20 10:40 <No data on this case meets the specified criteria> I identified the patient and participated in the time-out.: No Procedure Operation Date: 02/17/20 08:25 Actual Procedures p Endoscopic Retrograde Cholangiopancreatogram(Not Applicable) - Casey Couch MD s Endoscopic Ultrasonography Upper(Not Applicable) - Casey Couch MD Operation Date: 02/18/20 10:40 <No data on this case meets the specified criteria> Surgeon Casey Couch MD Ironing Worker None Estimated Blood Loss 0 Findings See Below (Papillary stenosis, Pus consistent with cholangitis, Stent placed) Specimens CBD brushing cytology Description of Procedure ERCP I attest to the content of the Intraoperative Record and any orders documented therein. Any exceptions are noted below.
--- NOTE | 2020-02-17 20:03 | Fluoroscopy Report ---
[place] ERCP biliary ductal HISTORY: 74 years-old Female for ercp COMPARISON: None TECHNIQUE: 12 spot fluoroscopic images of the abdominal right upper quadrant were were obtained bakarii zing 4 minutes and 3.2 seconds fluoroscopy time FINDINGS: Endoscope within the duodenum. Cannulation of the common bile duct with retrograde injection of contr ast. The gallbladder appears surgically absent. Mild dilation of the common bile duct without signifi cant intrahepatic biliary ductal dilation. There is tapered narrowing of the distal common bile duct. There is balloon sweep of the common bile duct. Subsequent images demonstrate deployment of a common bile duct stent which appears in satisfactory positioning. No biliary ductal filling defects identif ied. IMPRESSION: Fluoroscopic assistance as above. Please see procedural report for further details. ACT 112: Negative or not required by law. The above report was generated using voice recognition software. It may contain grammatical, syntax o r spelling errors. Electronically signed by: Shayne Mendes M.D. 02/17/2020 8:01 PM
--- NOTE | 2020-02-17 20:03 | Progress Note ---
Date of Service February 17, 2020 Assessment & Plan Admission and Anticipated Discharge Date Admission Date: February 16, 2020 Subjective Patient underwent ERCP today, found with cholangitis, stent placed. Should proceed with Lap vinh tomorrow Results & Data ([facility]) Vital Signs (Past 12 Hours) Vital Signs Temp Pulse Pulse Pulse Pulse Resp BP 02/17/20 19:50 76 23 154/77 H 02/17/20 19:46 99 H 02/17/20 19:41 37.9 C H 80 15 143/74 H 02/17/20 15:30 37.7 C H 98 H 18 148/76 H 02/17/20 15:10 37.1 C 91 H 18 151/84 H 02/17/20 11:45 36.7 C 104 H 19 157/73 H Pulse Ox 02/17/20 19:50 94 02/17/20 19:46 02/17/20 19:41 94 02/17/20 15:30 92 02/17/20 15:10 93 02/17/20 11:45 93
--- NOTE | 2020-02-17 20:28 | Anesthesiology Progress Note ---
Date of Service February 17, 2020 Anesthesia Post Procedure Vital Signs Vital Signs: Temp Pulse Pulse Pulse Pulse Resp BP 02/17/20 20:10 37.7 C H 69 22 156/71 H 02/17/20 20:00 69 20 156/75 H 02/17/20 19:50 76 23 154/77 H 02/17/20 19:46 99 H 02/17/20 19:41 37.9 C H 80 15 143/74 H 02/17/20 15:30 37.7 C H 98 H 18 148/76 H 02/17/20 15:10 37.1 C 91 H 18 151/84 H 02/17/20 11:45 36.7 C 104 H 19 157/73 H 02/17/20 07:58 37.0 C 99 H 19 154/74 H 02/17/20 07:50 97 H 02/17/20 04:29 37.8 C H 100 H 20 145/80 H 02/17/20 01:07 103 H 02/17/20 00:44 37.1 C 103 H 20 128/75 02/17/20 00:06 97 H 20 126/86 02/16/20 23:38 104 H 20 02/16/20 23:11 85 20 144/80 H 02/16/20 21:44 100 H 20 145/85 H 02/16/20 20:44 87 20 137/88 Pulse Ox 02/17/20 20:10 92 02/17/20 20:00 93 02/17/20 19:50 94 02/17/20 19:46 02/17/20 19:41 94 02/17/20 15:30 92 02/17/20 15:10 93 02/17/20 11:45 93 02/17/20 07:58 90 02/17/20 07:50 02/17/20 04:29 91 02/17/20 01:07 02/17/20 00:44 87 L 02/17/20 00:06 91 02/16/20 23:38 96 02/16/20 23:11 92 02/16/20 21:44 92 02/16/20 20:44 95 Pain Intensity Right Abdomen: Pain Intensity: 6 Transfer of Care Handoff Completed per policy Notes Mental Status: alert / awake / arousable Patient Amnestic to Procedure: Yes Nausea / Vomiting: adequately controlled Pain: adequately controlled Airway Patency, RR, SpO2: stable & adequate BP & HR: stable & adequate Hydration State: stable & adequate Anesthetic Complications: no major complications apparent
[2020-02-17] MEDS: PIPERACILLIN/TAZOBACTAM 3.375 GM in DEXTROSE 5% 100 ML IV SCH (20:50)
[2020-02-17] MEDS ORDERED: ATORVASTATIN 20 MG TAB PO SCH (21:00)
[2020-02-17] MEDS: GABAPENTIN 300 MG CAP PO SCH (22:08)
[2020-02-17] MEDS: NORTRIPTYLINE HCL 25 MG CAP PO SCH (22:09)
[2020-02-17] MEDS: PANTOprazole 40 MG in SYRINGE 0 ML IV SCH (22:17)
--- NOTE | 2020-02-17 22:21 | Electrocardiogram Report ---
Test Reason : Blood Pressure : / mmHG Vent. Rate : 104 BPM Atrial Rate : 104 BPM P-R Int : 176 ms QRS Dur : 100 ms QT Int : 348 ms P-R-T Axes : 055 -52 079 degrees QTc Int : 457 ms Sinus tachycardia with frequent Premature ventricular complexes Left axis deviation Inferior infarct (cited on or before 25-SEP-2018) Poor R wave progression, consider anterior OK vs. lead placement vs. LVH Abnormal ECG When compared with ECG of 25-SEP-2018 16:37, QRS axis Shifted left Confirmed by Kunal Rodriguez ([id number]) on 02/17/2020 10:21:31 PM Referred By: REFERRED SELF Confirmed By:Kunal Rodriguez
--- NOTE | 2020-02-17 22:32 | Hospitalist Progress Note ---
Date of Service February 17, 2020 Assessment & Plan (1) Gram-negative bacteremia: one set of positive blood cultures continue Zosyn IV follow up final results, no fever source is cholangitis, biliary stent placed and plan for lap vinh tomorrow (2) Cholangitis: ERCP on 02/16 with evidence of pus draining from biliary duct stent placed to promote drainage continue Zosyn IV (3) Cholelithiasis: plan for lap vinh tomorrow with Dr. Mcintosh (4) Abdominal pain, acute, right upper quadrant: Concern for choledocholilthiasis given filling defect in the distal common bile duct. Patient afebrile, HD stable at present. Ill in appearance. see above pain better with Dilaudid IV (5) Substernal chest pain: Patient with slight elevation in troponin, stable. No acute EKG changes. Most likely in setting of acute illness, sepsis. trop up slightly to 0.1 this is all demand ischemia with acute cholangitis, cholelithiasis (6) Dyslipidemia: Chronic -Holding Atorvastatin (7) Hypertension: Chronic. Stable -Hold Amlodipine -Continue Metoprolol -Continue to monitor (8) Elevated LFTs: In setting of concerning choledocholithiasis -GI consult as above -General surgery consult -Repeat LFTs are stable ERCP today, biliary stent placed (9) Chronic obstructive pulmonary disease: Stable respiratory status -Continue Flulticasone/Vilanerol -DuoNebs PRN F/E/N - NSS at 125mL/hr, monitor electrolytes, NPO Ppx - SCDs Code - DNR/DNI Dispo - Admit to PCU (10) Hypomagnesemia: replace with 1gm IV (11) Hypokalemia: 10mEq IV x 2 doses Admission and Anticipated Discharge Date Admission Date: February 16, 2020 Subjective patient still with RUQ pain, nausea, no appetite she went for ERCP late this evening, found to have pus consistent with chola ngitis, biliary stent placed blood cultures with gram negative bacilli reviewed chart, reviewed labs, K low at 3.3 and mag low at 1.7 WBC down to 14k from 22k, Cr improved to 1.2, bili and alk phos up slightly discussed with GI and discussed with general surgery, plan for lap vinh tomorrow Review of Systems Review of Systems: All systems reviewed & are unremarkable except as noted in Subjective Constitutional: + fever, + chills and + weakness; no sweats and no fatigue Respiratory: no cough Cardiovascular: no chest pain Gastrointestinal: + abdominal pain (RUQ) and + nausea; no vomiting, no constipation and no diarrhea/loose stools Physical Exam Constitutional: well developed, + ill appearing and well groomed; no acute distress Eyes: normal visual hurd by confrontation, + scleral abnormality (mild icterus), PERRL and EOM intact bilaterally ENMT: external ear and nose normal, oropharynx normal Neck: trachea midline, no thyromegaly Respiratory: normal respiratory effort, lungs clear to auscultation Cardiovascular: RRR, no murmur, no edema Gastrointestinal (Abdomen): Inspection/Auscultation: abdomen normal to inspection and normal bowel sounds; abdomen not distended Percussion/Palpation: + abdomen tender (RUQ), abdomen soft and + tympanic to percussion; no guarding, abdomen not rigid and no ascites Musculoskeletal: no cyanosis or clubbing, extremities motor strength 5/5 Skin: no rashes, warm and dry Neurologic: patellar DTR's 2+ bilat, sensation intact and PERRL, EOMI, accommodation nl, no face palsy, no dysarthria Psychiatric: A+Ox3, euthymic affect Lymphatic: no cervical or axillary lymphadenopathy Results & Data Results & Data ([facility]) Vital Signs (Past 12 Hours) Vital Signs Temp Pulse Pulse Pulse Pulse Resp BP 02/17/20 20:37 36.8 C 77 20 158/76 H 02/17/20 20:10 37.7 C H 69 22 156/71 H 02/17/20 20:00 69 20 156/75 H 02/17/20 19:50 76 23 154/77 H 02/17/20 19:46 99 H 02/17/20 19:41 37.9 C H 80 15 143/74 H 02/17/20 15:30 37.7 C H 98 H 18 148/76 H 02/17/20 15:10 37.1 C 91 H 18 151/84 H 02/17/20 11:45 36.7 C 104 H 19 157/73 H Pulse Ox 02/17/20 20:37 92 02/17/20 20:10 92 02/17/20 20:00 93 02/17/20 19:50 94 02/17/20 19:46 02/17/20 19:41 94 02/17/20 15:30 92 02/17/20 15:10 93 02/17/20 11:45 93 Laboratory Results Laboratory Results - last 24 hr 02/17/20 02/17/20 02/17/20 00:40 01:19 08:42 WBC Cancelled RBC Cancelled Hgb Cancelled Hct Cancelled MCV Cancelled MCH Cancelled MCHC Cancelled RDW Std Deviation Cancelled RDW Coeff of Deana Cancelled Plt Count Cancelled MPV Cancelled Immature Gran % (Auto) Cancelled Neut % (Auto) Cancelled Lymph % (Auto) Cancelled Thurston % (Auto) Cancelled Eos % (Auto) Cancelled Baso % (Auto) Cancelled Neut # (Auto) Cancelled Lymph # (Auto) Cancelled Thurston # (Auto) Cancelled Eos # (Auto) Cancelled Baso # (Auto) Cancelled Immature Gran # (Auto) Cancelled Absolute Nucleated RBC Cancelled Nucleated RBC % (auto) Cancelled Neutrophils % (Manual) Cancelled Band Neutrophils % Cancelled Lymphocytes % (Manual) Cancelled Prolymphocyte % Cancelled Reactive Lymphs % (Man) Cancelled Monocytes % (Manual) Cancelled Eosinophils % (Manual) Cancelled Basophils % (Manual) Cancelled Metamyelocytes % (Man) Cancelled Myelocytes % (Man) Cancelled Promyelocytes % (Man) Cancelled Blast Cells % (Manual) Cancelled Plasma Cell % (Manual) Cancelled Other Cells % Cancelled Nucleated RBC % Cancelled Neutrophils # (Manual) Cancelled Band Neutrophils # Cancelled Total Absolute Neuts Cancelled Lymphocytes # (Manual) Cancelled Prolymphocyte # Cancelled Reactive Lymphs # Cancelled Total Abs Lymphocytes Cancelled Monocytes # (Manual) Cancelled Eosinophils # (Manual) Cancelled Basophils # (Manual) Cancelled Metamyelocytes # (Man) Cancelled Myelocytes # (Manual) Cancelled Promyelocytes # (Man) Cancelled Blast Cells # (Man) Cancelled Plasma Cell # (Manual) Cancelled Other Cells # Cancelled Nucleated RBCs # (Man) Cancelled Hypersegmented Neuts Cancelled Hyposegmented Neuts Cancelled Hypogranular Neuts Cancelled Large Granular Lymphs Cancelled # Lrg Granular Lymphs Cancelled Hairy Cells Cancelled Smudge Cells Cancelled Toxic Granulation Cancelled Toxic Vacuolation Cancelled Dohle Bodies Cancelled De Rods Cancelled Platelet Estimate Cancelled Hypogranular Platelets Cancelled Clumped Platelets Cancelled Giant Platelets Cancelled Platelet Satelliting Cancelled RBC Morphology Cancelled Polychromasia Cancelled Hypochromasia Cancelled Poikilocytosis Cancelled Basophilic Stippling Cancelled Anisocytosis Cancelled Microcytosis Cancelled Macrocytosis Cancelled Spherocytes Cancelled Pappenheimer Bodies Cancelled Sickle Cells Cancelled Target Cells Cancelled Tear Drop Cells Cancelled Ovalocytes Cancelled Stomatocytes Cancelled Chin-Truchas Bodies Cancelled Echinocytes Cancelled Acanthocytes (Spur) Cancelled Rouleaux Cancelled RBC Agglutinates Cancelled Schistocytes Cancelled RBC Morph Comment Cancelled Sezary Cell Cancelled Sodium Potassium Chloride Carbon Dioxide Anion Gap BUN Creatinine Est Cr Clr Drug Dosing Est GFR ( Amer) Est GFR (Non-Af Amer) BUN/Creatinine Ratio Glucose Calcium Phosphorus 2.6 Magnesium 1.7 L Total Bilirubin Direct Bilirubin AST ALT Alkaline Phosphatase Troponin I 0.093 H* Total Protein Albumin Urine Color Dark Yellow Urine Appearance Cloudy A Urine pH 5.0 Ur Specific Perkins 1.024 Urine Protein 3+ H Urine Glucose (UA) Negative Urine Ketones Trace H Urine Blood Negative Urine Nitrite Negative Urine Bilirubin 1+ H Urine Urobilinogen Negative Ur Leukocyte Esterase Trace H Urine WBC (Auto) 5-10 H Urine RBC (Auto) 0-4 U Hyaline Cast (Auto) 5-10 H U Epithel Cells (Auto) >30 H Urine Bacteria (Auto) 1+ H Granular Casts 5-10 H Urine Yeast Present A COVID-19 Eval Order SARS-CoV-2, RNA, NAAT 02/17/20 02/17/20 02/17/20 08:42 08:42 Unknown WBC 14.63 H RBC 4.46 Hgb 14.2 Hct 42.1 MCV 94.4 MCH 31.8 MCHC 33.7 RDW Std Deviation 51.1 H RDW Coeff of Deana 14.8 H Plt Count 228 MPV 9.7 Immature Gran % (Auto) 0.3 Neut % (Auto) 89.7 Lymph % (Auto) 4.0 Thurston % (Auto) 5.9 Eos % (Auto) 0.0 Baso % (Auto) 0.1 Neut # (Auto) 13.11 H Lymph # (Auto) 0.59 L Thurston # (Auto) 0.87 H Eos # (Auto) 0.00 Baso # (Auto) 0.01 Immature Gran # (Auto) 0.05 H Absolute Nucleated RBC Nucleated RBC % (auto) Neutrophils % (Manual) Band Neutrophils % Lymphocytes % (Manual) Prolymphocyte % Reactive Lymphs % (Man) Monocytes % (Manual) Eosinophils % (Manual) Basophils % (Manual) Metamyelocytes % (Man) Myelocytes % (Man) Promyelocytes % (Man) Blast Cells % (Manual) Plasma Cell % (Manual) Other Cells % Nucleated RBC % Neutrophils # (Manual) Band Neutrophils # Total Absolute Neuts Lymphocytes # (Manual) Prolymphocyte # Reactive Lymphs # Total Abs Lymphocytes Monocytes # (Manual) Eosinophils # (Manual) Basophils # (Manual) Metamyelocytes # (Man) Myelocytes # (Manual) Promyelocytes # (Man) Blast Cells # (Man) Plasma Cell # (Manual) Other Cells # Nucleated RBCs # (Man) Hypersegmented Neuts Hyposegmented Neuts Hypogranular Neuts Large Granular Lymphs # Lrg Granular Lymphs Hairy Cells Smudge Cells Toxic Granulation Toxic Vacuolation Dohle Bodies De Rods Platelet Estimate Hypogranular Platelets Clumped Platelets Giant Platelets Platelet Satelliting RBC Morphology Polychromasia Hypochromasia Poikilocytosis Basophilic Stippling Anisocytosis Microcytosis Macrocytosis Spherocytes Pappenheimer Bodies Sickle Cells Target Cells Tear Drop Cells Ovalocytes Stomatocytes Chin-Truchas Bodies Echinocytes Acanthocytes (Spur) Rouleaux RBC Agglutinates Schistocytes RBC Morph Comment Sezary Cell Sodium 135 L Potassium 3.3 L Chloride 100 Carbon Dioxide 28 Anion Gap 8.0 BUN 26 H Creatinine 1.24 H D Est Cr Clr Drug Dosing 39.8 Est GFR ( Amer) 49.2 Est GFR (Non-Af Amer) 42.5 BUN/Creatinine Ratio 21.0 H Glucose 123 H Calcium 9.2 Phosphorus Magnesium Total Bilirubin 1.7 H Direct Bilirubin 1.3 H AST 71 H ALT 207 H Alkaline Phosphatase 377 H Troponin I 0.128 H* Total Protein 6.8 Albumin 2.6 L Urine Color Urine Appearance Urine pH Ur Specific Perkins Urine Protein Urine Glucose (UA) Urine Ketones Urine Blood Urine Nitrite Urine Bilirubin Urine Urobilinogen Ur Leukocyte Esterase Urine WBC (Auto) Urine RBC (Auto) U Hyaline Cast (Auto) U Epithel Cells (Auto) Urine Bacteria (Auto) Granular Casts Urine Yeast COVID-19 Eval [facility] SARS-CoV-2, RNA, NAAT 02/17/20 Unknown WBC RBC Hgb Hct MCV MCH MCHC RDW Std Deviation RDW Coeff of Deana Plt Count MPV Immature Gran % (Auto) Neut % (Auto) Lymph % (Auto) Thurston % (Auto) Eos % (Auto) Baso % (Auto) Neut # (Auto) Lymph # (Auto) Thurston # (Auto) Eos # (Auto) Baso # (Auto) Immature Gran # (Auto) Absolute Nucleated RBC Nucleated RBC % (auto) Neutrophils % (Manual) Band Neutrophils % Lymphocytes % (Manual) Prolymphocyte % Reactive Lymphs % (Man) Monocytes % (Manual) Eosinophils % (Manual) Basophils % (Manual) Metamyelocytes % (Man) Myelocytes % (Man) Promyelocytes % (Man) Blast Cells % (Manual) Plasma Cell % (Manual) Other Cells % Nucleated RBC % Neutrophils # (Manual) Band Neutrophils # Total Absolute Neuts Lymphocytes # (Manual) Prolymphocyte # Reactive Lymphs # Total Abs Lymphocytes Monocytes # (Manual) Eosinophils # (Manual) Basophils # (Manual) Metamyelocytes # (Man) Myelocytes # (Manual) Promyelocytes # (Man) Blast Cells # (Man) Plasma Cell # (Manual) Other Cells # Nucleated RBCs # (Man) Hypersegmented Neuts Hyposegmented Neuts Hypogranular Neuts Large Granular Lymphs # Lrg Granular Lymphs Hairy Cells Smudge Cells Toxic Granulation Toxic Vacuolation Dohle Bodies De Rods Platelet Estimate Hypogranular Platelets Clumped Platelets Giant Platelets Platelet Satelliting RBC Morphology Polychromasia Hypochromasia Poikilocytosis Basophilic Stippling Anisocytosis Microcytosis Macrocytosis Spherocytes Pappenheimer Bodies Sickle Cells Target Cells Tear Drop Cells Ovalocytes Stomatocytes Chin-Truchas Bodies Echinocytes Acanthocytes (Spur) Rouleaux RBC Agglutinates Schistocytes RBC Morph Comment Sezary Cell Sodium Potassium Chloride Carbon Dioxide Anion Gap BUN Creatinine Est Cr Clr Drug Dosing Est GFR ( Amer) Est GFR (Non-Af Amer) BUN/Creatinine Ratio Glucose Calcium Phosphorus Magnesium Total Bilirubin Direct Bilirubin AST ALT Alkaline Phosphatase Troponin I Total Protein Albumin Urine Color Urine Appearance Urine pH Ur Specific Perkins Urine Protein Urine Glucose (UA) Urine Ketones Urine Blood Urine Nitrite Urine Bilirubin Urine Urobilinogen Ur Leukocyte Esterase Urine WBC (Auto) Urine RBC (Auto) U Hyaline Cast (Auto) U Epithel Cells (Auto) Urine Bacteria (Auto) Granular Casts Urine Yeast COVID-19 Eval Order SARS-CoV-2, RNA, NAAT NEGATIVE Microbiology 02/17/20 01:26 Blood Aerobic Blood Culture - Preliminary Gram negative bacilli Medications Administered Current Inpatient Medications Acetaminophen (Acetaminophen 325 Mg Tab) 650 mg PO Q4H PRN PRN Reason: Pain or Fever Stop: 03/18/20 00:41 Albuterol (Albut/Ipratrop 3mg/0.5mg Neb 3 Ml Vial) 3 ml NEB Q4R PRN PRN Reason: Shortness Of Breath Stop: 03/18/20 06:59 Docusate Sodium (Docusate Sodium 100 Mg Cap) 100 mg PO BID PRN PRN Reason: Constipation Stop: 03/18/20 00:41 Fluticasone/Vilanterol (Fluticasone/Vilanterol 100/25mcg 14 Puffs/Inhaler) 1 puffs INH HS [facility] Stop: 03/18/20 00:59 Last Admin: 02/17/20 22:07 Dose: Not Given Documented by: Gabapentin (Gabapentin 300 Mg Cap) 300 mg PO [facility] Stop: 03/18/20 20:59 Last Admin: 02/17/20 22:08 Dose: Not Given Documented by: Hydromorphone HCl (Hydromorphone Inj 0.5 Mg/0.5 Ml Syr) 0.5 mg IV Q4 PRN PRN Reason: Pain Stop: 03/02/20 08:57 Piperacillin Sod/Tazobactam (Sod 3.375 gm/ Dextrose) 115 mls @ 28.75 mls/hr IV Q8H [facility]; Protocol Stop: 02/27/20 17:59 Last Admin: 02/17/20 20:50 Dose: 28.8 mls/hr Documented by: Pantoprazole Sodium 40 mg/ (Syringe) 10 mls @ 5 mls/min IV BID [facility]OMAS Stop: 03/18/20 21:39 Last Admin: 02/17/20 22:17 Dose: 5 mls/min Documented by: Magnesium Sulfate/Dextrose (Magnesium Sulfate / D5w) 1 gm in 100 mls @ 50 mls/hr IV ONE ONE Stop: 02/18/20 09:59 Potassium Chloride (K Robi / Wtr) 10 meq in 100 mls @ 100 mls/hr IV Q1H ONE Stop: 02/18/20 08:59 Metoprolol Succinate (Metoprolol Succ 25mg Ext Rel Tab) 25 mg PO DAILY THOMAS Stop: 03/18/20 08:59 Last Admin: 02/17/20 09:08 Dose: 25 mg Documented by: Miscellaneous Information (Piperacill/Tazobac Consult Active) 1 ea N/A UD PRN PRN Reason: Consult Stop: 03/18/20 08:53 Morphine Sulfate (Morphine Sulfate 2 Mg/Ml Carp) 1 mg IV Q2H PRN PRN Reason: Pain Stop: 03/02/20 00:41 Last Admin: 02/17/20 22:27 Dose: 1 mg Documented by: Nortriptyline HCl (Nortriptyline Hcl 25 Mg Cap) 25 mg PO HS THOMAS Stop: 03/18/20 20:59 Last Admin: 02/17/20 22:09 Dose: 25 mg Documented by: Ondansetron HCl (Ondansetron Inj 2 Mg/Ml 2 Ml Vial) 4 mg IV Q6H PRN PRN Reason: Nausea Stop: 03/18/20 00:41 Last Admin: 02/17/20 22:17 Dose: 4 mg Documented by: Saccharomyces Boulardii (Saccharomyces Boulardii 250 Mg Cap) 250 mg PO DAILY THOMAS Stop: 03/18/20 08:59 Last Admin: 02/17/20 11:15 Dose: Not Given Documented by: PG Care Time/CCT Total # of Minutes Spent Total Time Spent with Patient: Total time spent is greater than 50% in coordination of care (as documented) at patient's floor/unit and/or counseling patient: Coding Level of Care Code 67208 Subseq Hosp Care Lvl 3 Diagnoses Gram-negative bacteremia R78.81 Cholangitis K83.09 Cholelithiasis K80.20 Abdominal pain, acute, right upper quadrant R10.11 Substernal chest pain R07.2 Dyslipidemia E78.5 Hypertension I10 Hypertension type: unspecified Elevated LFTs R79.89 Chronic obstructive pulmonary disease J44.9 COPD type: unspecified COPD Hypomagnesemia E83.42 Hypokalemia E87.6 (1) Hypertension Hypertension type: unspecified Qualified Code(s): I10 - Essential (primary) hypertension (2) Chronic obstructive pulmonary disease COPD type: unspecified COPD Qualified Code(s): J44.9 - Chronic obstructive pulmonary disease, unspecified
[2020-02-17] MEDS ORDERED: MAGNESIUM SULFATE / D5W 1 GM/100 ML BAG IV ONE (23:00)
[2020-02-17] MEDS: POTASSIUM CHLORIDE / WTR 10 MEQ/100 ML PLCT IV SCH (23:29)
[2020-02-18] MEDS: PIPERACILLIN/TAZOBACTAM 3.375 GM in DEXTROSE 5% 100 ML IV SCH ×3 (00:44→17:17)
[2020-02-18] MEDS: POTASSIUM CHLORIDE / WTR 10 MEQ/100 ML PLCT IV SCH ×5 (00:44→16:13)
--- NOTE | 2020-02-18 05:51 | Electrocardiogram Report ---
Test Reason : Blood Pressure : / mmHG Vent. Rate : 103 BPM Atrial Rate : 103 BPM P-R Int : 174 ms QRS Dur : 102 ms QT Int : 358 ms P-R-T Axes : 069 -43 078 degrees QTc Int : 468 ms Poor data quality, interpretation may be adversely affected Sinus tachycardia with Premature ventricular complexes Left axis deviation Inferior infarct (cited on or before 25-SEP-2018) Abnormal ECG When compared with ECG of 16-FEB-2020 17:54, No significant change was found Confirmed by Kunal Rodriguez ([id number]) on 02/18/2020 5:51:40 AM Referred By: REFERRED SELF Confirmed By:Kunal Rodriguez
[2020-02-18] MEDS: MoRPHine SULFATE 2 MG/ML CARP IV PRN ×3 (06:12→17:17)
[2020-02-18 07:23] LABS: Basophils # (auto) 0.01 K/uL (0-0.2); Basophils % (auto) 0.1 %; Hematocrit (blood only) 42.3 % (37-47); Immature Granulocytes # (auto) 0.02 K/uL (0.00-0.02); Immature Granulocytes % (auto) 0.2 %; Lymphocytes # (auto) 0.79 K/uL (1.2-3.4); Lymphocytes % (auto) 7.3 %; Mean Corpuscular Hemoglobin 30.9 pg (25-34); Mean Corpuscular Hgb Conc 33.1 g/dL (32-36); Mean Corpuscular Volume 93.4 fL (80-100); Monocytes # (auto) 0.92 K/uL (0.11-0.59); Monocytes % (auto) 8.5 %; Neutrophils # (auto) 9.11 K/uL (1.4-6.5); Neutrophils % (auto) 83.9 %; Platelet Count 222 K/uL (130-400); RDW Coefficient of Variation 14.5 % (11.5-14.5); RDW Standard Deviation 49.2 fL (36.4-46.3); Red Blood Count 4.53 M/uL (4.2-5.4); White Blood Count 10.85 K/uL (4.8-10.8)
--- NOTE | 2020-02-18 07:27 | GI REPORT ---
Patient Name: Dora Kirby Procedure Date: 02/17/2020 5:59 PM Date of : 1945 Admit Type: Inpatient Age: 74 Gender: Female Attending MD: Casey Couch MD Procedure: ERCP Providers: Casey Couch MD Referring MD: Jarocho Lagos Indications: Biliary dilation on Ultrasound, Evaluation and possible treatment of bile duct stone(s), Suspected ascending cholangitis, Elevated liver enzymes Medicines: General Anesthesia Complications: No immediate complications. Estimated Blood Loss: Estimated blood loss: none. Procedure: Pre-Anesthesia Assessment: - Prior to the procedure, a History and Physical was performed, and patient medications, allergies and sensitivities were reviewed. The patient's tolerance of previous anesthesia was reviewed. - The risks and benefits of the procedure and the sedation options and risks were discussed with the patient. All questions were answered and informed consent was obtained. - Patient identification and proposed procedure were verified prior to the procedure by the physician and the nurse. The procedure was verified in the procedure room. - Pre-procedure physical examination revealed no contraindications to sedation. After obtaining informed consent, the scope was passed under direct vision. Throughout the procedure, the patient's blood pressure, pulse, and oxygen saturations were monitored continuously. The Scope was introduced through the mouth, and advanced to the duodenum and used to inject contrast into the bile duct. The ERCP was accomplished without difficulty. The patient tolerated the procedure well. Findings: The catalyst plant supervisor film was normal. The esophagus was successfully intubated under direct vision. The scope was advanced to a normal major papilla in the descending duodenum without detailed examination of the pharynx, larynx and associated structures, and upper GI tract. The upper GI tract was grossly normal. There was gastritis and duodenitis. A 0.035 inch straight standard wire was passed into the biliary tree. The Fusion OMNI sphincterotome was passed over the guidewire and the bile duct was then deeply cannulated. Contrast was injected. I personally interpreted the bile duct images. Ductal flow of contrast was adequate. Image quality was adequate. Contrast extended to the main bile duct. The main bile duct was dilated. The largest diameter was 10 mm. The biliary orifice/distal CBD was stenotic. The lower third of the main bile duct contained filling defect(s). Biliary sphincterotomy was made with a braided traction (standard) sphincterotome using ERBE electrocautery. There was no post-sphincterotomy bleeding. Cells for cytology were obtained by brushing in the lower third of the main bile duct. Verification of patient identification for the specimen was done by the physician and nurse using the patient's name and date. Dilation of the common bile duct with an 8 mm balloon dilator was successful. The biliary tree was swept with an 11.5 mm balloon starting at the bifurcation. Pus was swept from the duct. Sludge was swept from the duct. One 10 Fr by 4 cm plastic biliary stent with a single external pigtail and a single internal pigtail was placed into the common bile duct. Bile flowed through the stent. The stent was in good position. Indomethacin 100 mg was given via suppository to decrease the risk of post-ERCP pancreatitis (PEP). PD was not cannulated. 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 Cells for cytology obtained in the lower third of the main duct. - A biliary sphincterotomy and balloon dilation sphincteroplasty was performed. - The biliary tree was swept and pus and sludge were found. - One plastic biliary stent was placed into the common bile duct. Recommendation: - [facility]. - Avoid aspirin and nonsteroidal anti-inflammatory medicines for 5 days. - Await cytology results. - Perform magnetic resonance imaging (MRI) with gadolinium as EUS was not done today to minimize the duration of anesthesia given patients ongoing sepsis with demand ischemia and positive troponin. - Repeat ERCP in 4 weeks to remove stent. Will perform EUS at that time. - Proceed with Lap vinh as scheduled. - Complete a 7 days course of antibiotics, can change to Cipro/Flagyl upon discharge. - IV PPI while in the hospital then change to PO for 2 months. Casey Couch MD 02/18/2020 7:26:47 AM This report has been signed electronically. Note Initiated On: 02/17/2020 5:59 PM Number of Addenda: 0 I attest to the content of the Intraoperative Record and orders documented therein, exceptions below {[id number]}
[2020-02-18] MEDS ORDERED: MAGNESIUM SULFATE / D5W 1 GM/100 ML BAG IV ONE (08:00)
[2020-02-18 08:04] LABS: Est GFR (African American) 68.8; Potassium 2.8 mmol/L (3.5-5.1)
[2020-02-18 08:05] LABS: Albumin Globulin Ratio 0.6 (0.9-2); Albumin Level 2.3 gm/dl (3.4-5.0); Bilirubin,Total 1.4 mg/dl (0.2-1); Calcium 9.3 mg/dl (8.5-10.1); Creatinine Clr Calc Pharmacy 51.9 ml/min; Est GFR (Non-African American) 59.3; Globulin 4.2 gm/dl (2.5-4.0); Total Protein 6.5 gm/dl (6.4-8.2)
[2020-02-18] MEDS: METOPROLOL SUCC 25MG EXT REL TAB PO SCH (08:11)
[2020-02-18] MEDS: PANTOprazole 40 MG in SYRINGE 0 ML IV SCH ×2 (08:11→20:13)
[2020-02-18] MEDS: SACCHAROMYCES BOULARDII 250 MG CAP PO SCH (08:33)
--- NOTE | 2020-02-18 09:20 | Gastroenterology Progress Note ---
Date of Service February 18, 2020 Assessment & Plan (1) Choledocholithiasis: Pt is a 74 y/o female w RUQ abd pain radiating to back, nausea, subjective fever, chills. On eval noted to have elevated LFTs and u/s evidence of cholelithiasis w biliary dilation concerning for choledocholithiasis She underwent ERCP yesterday - found to have gastritis and duodenitis, biliary stenosis, cells sent for cytology; pus & sludge drained, biliary sphincterectomy and biliary stent placement performed. EUS wasn't performed to minimize anesthesia duration in setting of septic pt w increasing Troponin likely related to demand ischemia. - IV PPI BID, then convert to PO BID form x 2 months upon DC - Replete K - Continue Zosyn IV for cholangitis; Upon DC can change to Cipro and Flagyl PO x 7 days duration - Avoid NSAIDs and high dose ASA x 5 days after sphincterectomy - Await cytology results - Repeat ERCP in 4 weeks' time for stent exchange. Will plan to perform EUS at that time as well - Surgery for lap cholecystectomy today - Obtain MRI/MRCP tomorrow 02/18 to r/o underlying biliary masses - Trend LFTs Admission and Anticipated Discharge Date Admission Date: February 16, 2020 Supervising Physician Co-Signing Physician Notes I performed a history and physical examination of the patient today, including specifically on physical exam - soft abdomen. I have discussed the patient's management with the advanced practitioner. Please refer to the nurse practitioner's note for the documented findings and plan of care. Subjective Pt febrile overnight. Blood cx growing gram negative bacilli. She has less abd pain, no n/v. Currently NPO for lap cholecystectomy. Noted LFTs trending down. Review of Systems Review of Systems: All systems reviewed & are unremarkable except as noted in HPI & below Physical Exam Constitutional: WD/WN, vitals as above well groomed and cooperative Eyes: PERRL, conjunctivae normal, anicteric sclerae ENMT: external ear and nose normal, oropharynx normal Respiratory: no respiratory distress and does not use accessory muscles Diminished bases but otherwise clear Cardiovascular: RRR, no murmur, no edema Gastrointestinal (Abdomen): Inspection/Auscultation: + hypoactive bowel sounds; abdomen not distended Percussion/Palpation: abdomen soft; abdomen nontender and no guarding Skin: no rashes, warm and dry Psychiatric: A+Ox3, euthymic affect Lymphatic: no lymphedema Results & Data ([facility]) Vital Signs (Past 12 Hours) Vital Signs Temp Pulse Pulse Pulse Resp BP Pulse Ox 02/18/20 07:20 36.9 C 97 H 19 129/75 96 02/18/20 07:00 85 02/18/20 04:00 36.7 C 98 H 20 150/83 H 91 02/17/20 23:51 36.8 C 80 20 144/81 H 94 02/17/20 22:00 85 111/62 02/17/20 21:30 93 H 157/78 H
--- NOTE | 2020-02-18 10:29 | Surgery Progress Note ---
Date of Service S/P ERCP, pt feels better, no fever, less abdominal pain, no chest pain, February 18, 2020 Assessment & Plan (1) Choledocholithiasis: (2) Cholelithiasis: pt is a 74 year-old female who was admitted to hospital for abdominal pain, IMP: cholelithiasis Plan, I recommend to do laparoscopic cholecystectomy after ERCP tomorrow, D/W benefits, risks and alternatives of the surgery, pt agrees with the surgery, I answered all questions, 02/18/2020 10:26AM, GI doctor recommend to do cholecystectomy, I recommend to do laparoscopic cholecystectomy possible open or cholangiogram, D/W benefits, risks and alternatives of the surgery, the risks - infection, bleeding, injury CBd, DE, , pt understood, she agrees with the surgery, I answered all questions, Admission and Anticipated Discharge Date Admission Date: February 16, 2020 Supervising Physician Co-Signing Physician Notes I performed a history and physical examination of the patient today, including specifically on physical exam - soft abdomen. I have discussed the patient's management with the advanced practitioner. Please refer to the nurse practitioner's note for the documented findings and plan of care. Likely cholangitis. EUS/ERCP today Subjective Pt febrile overnight. Blood cx growing gram negative bacilli. She has less abd pain, no n/v. Currently NPO for lap cholecystectomy. Noted LFTs trending down. Review of Systems Constitutional: as per Subjective / HPI Eyes: as per Subjective / HPI Ear, Nose, Mouth, Throat: as per Subjective / HPI Respiratory: as per Subjective / HPI COPD Cardiovascular: as per Subjective / HPI Additional Comments: HTN, Chest pain Gastrointestinal: as per Subjective / HPI Genitourinary: as per Subjective / HPI Musculoskeletal: as per Subjective / HPI spinal stenosis Integumentary: as per Subjective / HPI Neurologic: as per Subjective / HPI Psychiatric: as per Subjective / HPI Endocrine: as per Subjective / HPI Hematologic / Lymphatic: as per Subjective / HPI Physical Exam Constitutional: WD/WN, vitals as above well developed and well nourished Eyes: PERRL, conjunctivae normal, anicteric sclerae ENMT: external ear and nose normal, oropharynx normal Neck: trachea midline, no thyromegaly Respiratory: normal respiratory effort, lungs clear to auscultation normal respiratory effort Cardiovascular: RRR, no murmur, no edema Rate/Rhythm: regular rate and regular rhythm Gastrointestinal (Abdomen): Percussion/Palpation: + abdomen tender and abdomen soft tenderness at RUQ, no rebound pain, BS + Musculoskeletal: no cyanosis or clubbing, extremities motor strength 5/5 Skin: no rashes, warm and dry Neurologic: patellar DTR's 2+ bilat, sensation intact Psychiatric: Orientation: alert and oriented x 3 Results & Data ([facility]) Vital Signs (Past 12 Hours) Vital Signs Temp Pulse Pulse Pulse Resp BP Pulse Ox 02/18/20 07:20 36.9 C 97 H 19 129/75 96 02/18/20 07:00 85 02/18/20 04:00 36.7 C 98 H 20 150/83 H 91 02/17/20 23:51 36.8 C 80 20 144/81 H 94 Laboratory Results Abnormal lab results 02/18/20 02/18/20 Range/Units 06:54 06:54 WBC 10.85 H (4.8-10.8) K/uL RDW Std Deviation 49.2 H (36.4-46.3) fL Neut # (Auto) 9.11 H (1.4-6.5) K/uL Lymph # (Auto) 0.79 L (1.2-3.4) K/uL [place] # (Auto) 0.92 H (0.11-0.59) K/uL Potassium 2.8 L D (3.5-5.1) mmol/L BUN 22 H (7-18) mg/dl BUN/Creatinine Ratio 23.0 H (10-20) Total Bilirubin 1.4 H (0.2-1) mg/dl AST 39 H (15-37) U/L ALT 132 H (12-78) U/L Alkaline Phosphatase 316 H (45-117) U/L Albumin 2.3 L (3.4-5.0) gm/dl Globulin 4.2 H (2.5-4.0) gm/dl Albumin/Globulin Ratio 0.6 L (0.9-2)
--- NOTE | 2020-02-18 10:29 | History & Physical Bridge Note ---
Date of Service February 18, 2020 History & Physical Bridge Note I have examined the patient, reviewed the History & Physical and in the interval since the performance of the History & Physical I have noted the following changes of clinical significance: no changes noted Supervising Physician Co-Signing Physician Notes I performed a history and physical examination of the patient today, including specifically on physical exam - soft abdomen. I have discussed the patient's management with the advanced practitioner. Please refer to the nurse practitioner's note for the documented findings and plan of care. Likely cholangitis. EUS/ERCP today
[2020-02-18] MEDS ORDERED: ONDANSETRON INJ 2 MG/ML 2 ML VIAL ONE (11:28)
[2020-02-18] MEDS ORDERED: LIDOCAINE HCL 2% 2 ML VIAL/AMP(20MG/ML) INFIL ONE (11:28)
[2020-02-18] MEDS ORDERED: GLYCOPYRROLATE 0.2 MG/ML VIAL ONE (11:28)
[2020-02-18] MEDS ORDERED: PROPOFOL IV EMULSION 10 MG/ML 20 ML VIAL IV ONE (11:28)
[2020-02-18] MEDS ORDERED: DEXAMETHASONE SOD INJ 4 MG/ML VIAL ONE (11:28)
[2020-02-18] MEDS ORDERED: NEOSTIGMINE METHYLSULFATE 5 MG/5 ML SYR ONE (11:28)
[2020-02-18] MEDS ORDERED: MIDAZOLAM HCL 1 MG/ML 2ML VIAL ONE (11:28)
[2020-02-18] MEDS ORDERED: fentaNYL citrate 100 MCG/2 ML VIAL ONE (11:29)
[2020-02-18] MEDS ORDERED: LIDOCAINE HCL 1% 20 ML VIAL ONE (11:58)
[2020-02-18] MEDS ORDERED: BUPIVACAINE 0.5 % 5 MG/1 ML MPF 30ML VIAL ONE (11:58)
[2020-02-18] MEDS ORDERED: ePHEDrine sulfate 50 MG/ML AMP IV PRN (12:45)
[2020-02-18] MEDS ORDERED: PROMETHAZINE HCL 12.5 MG in SODIUM CHLORIDE 0.9% 50 ML IV PRN (12:45)
[2020-02-18] MEDS ORDERED: ATROPINE SULFATE 0.1 MG/ML 10ML SYR IV PRN (12:45)
[2020-02-18] MEDS ORDERED: ONDANSETRON INJ 2 MG/ML 2 ML VIAL IV PRN (12:45)
--- NOTE | 2020-02-18 12:45 | Anesthesiology Consultation ---
Date of Service February 18, 2020 Assessment & Plan ASA ASA3 Proposed Anesthesia Anesthesia Type: General Risk / Benefits Reviewed With: PT / POA / Parent / Guardian, Accepts Plan and Informed Consent Obtained History Surgery Operation Date: 02/17/20 08:25 Proposed Procedures p Endoscopic Retrograde Cholangiopancreatogram - Casey Couch MD s Endoscopic Ultrasonography Upper - Casey Couch MD Operation Date: 02/18/20 10:40 Proposed Procedures p Laparoscopic Cholecystectomy - Manuel Mcintosh MD Height/Weight Height: 5 ft 3 in Weight: 80.3 kg Allergies Allergy/AdvReac Type Severity Reaction Status Date / Time bacitracin Allergy Unknown EMACERATION Verified 02/16/20 19:13 SKIN AT SITE neomycin Allergy Unknown EMACERATION Verified 02/16/20 19:13 SKIN AT SITE polymyxin B Allergy Unknown EMACERATION Verified 02/16/20 19:13 SKIN AT SITE bupropion AdvReac Severe lips Verified 02/16/20 19:13 swelling Aminoglycosides AdvReac Intermediate Verified 02/16/20 19:13 Medications Home Medications Medication Instructions Recorded Confirmed Last Taken [place]-3 1 cap PO QAM 09/25/18 02/16/20 02/16/20 ascorbic acid (vitamin C) 1 g PO QAM 09/25/18 02/16/20 02/16/20 vitamin E 100 unit capsule 100 units PO DAILY 10/02/18 02/16/20 02/16/20 ipratropium bromide 17 2 puffs INHALATION QID PRN #1 gm 10/05/18 02/16/20 U nknown mcg/actuation HFA aerosol inhaler cholecalciferol (vitamin D3) 25 1,000 units PO DAILY #90 cap 04/06/19 02/16/20 02/16/20 mcg (1,000 unit) capsule hydrochlorothiazide 25 mg tablet 25 mg PO DAILY #90 tab 04/08/19 02/16/20 02/16/20 budesonide-formoterol HFA 160 2 puff INHALATION BID #30.6 gm 10/30/19 02/16/20 Unknown mcg-4.5 mcg/actuation aerosol inhaler amlodipine 5 mg tablet 5 mg PO QAM #90 tab 12/02/19 02/16/20 02/16/20 metoprolol succinate 25 mg 25 mg PO DAILY #90 tab 12/18/19 02/16/20 02/16/20 tablet,extended release 24 hr nortriptyline 25 mg capsule 25 - 50 mg PO HS #60 cap 01/26/20 02/16/20 Unknown gabapentin 300 mg capsule 300 mg PO HS #90 cap 02/02/20 02/16/20 Unknown aspirin 81 mg tablet,delayed 81 mg PO UD 02/03/20 02/16/20 02/16/20 release hydrocodone 10 mg-acetaminophen 2 tab PO Q6H PRN #240 tab MDD 8 02/03/20 02/16/20 Unknown 325 mg tablet tabs atorvastatin 20 mg PO HS 02/16/20 02/16/20 Unknown vit C,W-Sz-emkur-lutein-zeaxan 1 tab PO BID 02/16/20 02/16/20 Unknown [PreserVision AREDS-2] Active Medications Generic Name Dose Route Start Last Admin Trade Name Freq PRN Reason Stop Dose Admin Fluticasone/Vilanterol 1 puffs 02/17/20 01:00 02/17/20 22:07 Fluticasone/Vilanterol 100/25mcg 14 Puffs/Inhaler INH 03/18/20 00:59 Not Given HS THOMAS Gabapentin 300 mg 02/17/20 21:00 02/17/20 22:08 Gabapentin 300 Mg Cap PO 03/18/20 20:59 Not Given HS THOMAS Piperacillin Sod/Tazobactam 115 mls @ 28.75 mls/hr 02/17/20 18:00 02/18/20 09:25 Sod 3.375 gm/ Dextrose IV 02/27/20 17:59 28.8 mls/hr Q8H THOMAS Administration Protocol Pantoprazole Sodium 40 mg/ 10 mls @ 5 mls/min 02/17/20 21:40 02/18/20 08:11 Syringe IV 03/18/20 21:39 5 mls/min BID THOMAS Administration Potassium Chloride 10 meq in 100 mls @ 100 mls/hr 02/18/20 09:00 02/18/20 12:16 K Robi / Wtr IV 02/18/20 12:59 Infused Q1H THOMAS Infusion Metoprolol Succinate 25 mg 02/17/20 09:00 02/18/20 08:11 Metoprolol Succ 25mg Ext Rel Tab PO 03/18/20 08:59 25 mg DAILY THOMAS Administration Morphine Sulfate 1 mg 02/17/20 02:51 02/18/20 09:22 Morphine Sulfate 2 Mg/Ml Carp IV 03/02/20 00:41 1 mg Q2H PRN Administration Pain Nortriptyline HCl 25 mg 02/17/20 21:00 02/17/20 22:09 Nortriptyline Hcl 25 Mg Cap PO 03/18/20 20:59 25 mg HS THOMAS Administration Ondansetron HCl 4 mg 02/17/20 00:42 02/17/20 22:17 Ondansetron Inj 2 Mg/Ml 2 Ml Vial IV 03/18/20 00:41 4 mg Q6H PRN Administration Nausea Saccharomyces Boulardii 250 mg 02/17/20 09:00 02/18/20 08:33 Saccharomyces Boulardii 250 Mg Cap PO 03/18/20 08:59 Not Given DAILY THOMAS NPO Date Last Intake of Fluids: 02/17/20 Time Last Intake of Fluids: 18:00 Date Last Intake of Solids: 02/17/20 Time Last Intake of Solids: 17:30 Past Medical History Medical History Chronic obstructive pulmonary disease Chronic osteoarthritis Clostridium difficile diarrhea DNR (do not resuscitate) Dyslipidemia Hepatic steatosis Hyperparathyroidism, primary Hypertension Impaired fasting glucose Lumbar spinal stenosis Nocturnal hypoxia on nocturnal oxygen therapy Nontoxic multinodular goiter Secondary polycythemia Venous insufficiency Exercise / Class Metabolic Activity II 4-5 Yardwork/Stairs/Walk up hill Past Family History Family History Other No pertinent family history Past Surgical History Surgical History History of appendectomy History of hip replacement History of knee replacement Past Anesthesia History No Hx of Anesthesia Complications and No Family Hx of Anesthesia Complications History of PONV No Hx of PONV and No Hx of Motion Sickness Social History Smoking Status: Current every day smoker tobacco type: cigarettes Smoking cigarettes per day: 10 Do You Dip or Chew Tobacco: No Hx Alcohol Use: No Hx Substance Use: No Review of Systems denies fever/cough/ colds/ chest pain/ SOB/ ALBERT denies ALBERT Physical Exam Vital Signs Last Vital Signs Temp 37 C 02/18/20 11:58 Pulse 68 02/18/20 11:58 Resp 18 02/18/20 11:58 BP 135/74 02/18/20 11:58 Pulse Ox 92 02/18/20 11:58 ENMT Mouth: + edentulous; no TMJ abnormality and no dentition abnormality Thyromental Distance: > or= 3.5 Finger Breadths Mallampati Class: III Neck neck extension not limited Respiratory normal respiratory effort; no respiratory distress Auscultation: lungs clear to auscultation bilaterally Cardiovascular Rate/Rhythm: regular rate and regular rhythm Neurologic moves all extremities Psychiatric Orientation: alert and oriented x 3 Testing Laboratory Results 02/18/20 06:54 02/18/20 06:54 PT 11.9 Seconds (9.0-12.0) 02/16/20 18:11 INR 1.1 (0.9-1.1) 02/16/20 18:11 APTT 28.3 Seconds (21.0-31.0) 02/16/20 18:11 Urine Color Dark Yellow 02/17/20 00:40 Urine Appearance Cloudy (Clear) A 02/17/20 00:40 Urine pH 5.0 (4.5-7.5) 02/17/20 00:40 Ur Specific [place] 1.024 (1.000-1.030) 02/17/20 00:40 Urine Protein 3+ (Negative) H 02/17/20 00:40 Urine Glucose (UA) Negative (Negative) 02/17/20 00:40 Urine Ketones Trace (Negative) H 02/17/20 00:40 Urine Nitrite Negative (Negative) 02/17/20 00:40 Ur Leukocyte Esterase Trace (Negative) H 02/17/20 00:40 Urine WBC (Auto) 5-10 /hpf (0-5) H 02/17/20 00:40 Urine RBC (Auto) 0-4 /hpf (0-4) 02/17/20 00:40 U Hyaline Cast (Auto) 5-10 /lpf (0-5) H 02/17/20 00:40 U Epithel Cells (Auto) >30 /lpf (0-5) H 02/17/20 00:40 Urine Bacteria (Auto) 1+ (Negative) H 02/17/20 00:40 02/17/20 01:26 Aerobic Blood Culture - Preliminary Blood Gram negative bacilli Anaerobic Blood Culture - Preliminary Gram negative bacilli 02/17/20 01:19 Aerobic Blood Culture - Preliminary Blood Gram negative bacilli Anaerobic Blood Culture - Preliminary Gram negative bacilli 02/17/20 00:40 Urine Culture - Final Urine,Clean Catch More than three types of organisms present, all low counts mixed probable skin surendra. No further identifications or sensitivities to follow. Electrocardiogram Date: 02/16/20 ST with PVCs rate 103, old inferior infarct noted on 2019 EKG Chest X-Ray Date: 02/16/20 XR chest 1V portable HISTORY: 74 years-old Female Chest Pain acute atypical chest pain COMPARISON: Chest radiograph 09/25/2018 TECHNIQUE: Portable AP view of the chest FINDINGS: Cardiac silhouette is mildly enlarged. Calcified plaque of the thoracic aorta. Mild bibasilar atelectasis. No pneumothorax, large pleural effusion or overt pulmonary edema. Degenerative changes of the shoulders and spine. IMPRESSION: No acute process. ACT 112: Negative or not required by law. The above report was generated using voice recognition software. It may contain grammatical, syntax or spelling errors. Electronically signed by: Shayne Mendes M.D. 02/16/2020 7:05 PM Dictated: 02/16/201904 Transcribed: 02/16/201904
--- NOTE | 2020-02-18 14:22 | Post Operative Brief Note ---
Immediate Post Op Note v1 Date of Surgery February 18, 2020 Pre & Post Diagnosis Operation Date: 02/17/20 08:25 Pre-Op Diagnosis: Choledocholithiasis Post-Op Diagnosis: Choledocholithiasis Operation Date: 02/18/20 10:40 Pre-Op Diagnosis:acute cholecystitis Post-Op Diagnosis: acute cholecystitis, gangrene gallbladder I identified the patient and participated in the time-out.: Yes Procedure Operation Date: 02/17/20 08:25 Actual Procedures p Endoscopic Retrograde Cholangiopancreatogram(Not Applicable) - Casey Couch MD s Endoscopic Ultrasonography Upper(Not Applicable) - Casey Couch MD Operation Date: 02/18/20 10:40 Actual Procedures p Laparoscopic Cholecystectomy(Not Applicable)J-P drainage - Manuel Mcintosh MD Surgeon Manuel Mcintosh MD Carding Supervisor electroencephalograph technician Estimated Blood Loss 10 Findings Consistent with Post-Op Diagnosis gangrene gallbladder, with full pus Fluids 600ml Specimens gallbladder Drains Christian-Darnell Drain (10F FLAT) Anesthesia Type General Complications none Disposition Accompanied Patient To Recovery: Yes Disposition: Recovery Room Overlapping Procedure I was immediately available: during the entire case.
[2020-02-18] MEDS: fentaNYL citrate 100 MCG/2 ML VIAL IV PRN ×2 (14:51→15:00)
[2020-02-18] MEDS: HYDROmorphone INJ 2 MG/ML SYR/VIAL IV PRN ×4 (15:14→15:40)
--- NOTE | 2020-02-18 15:46 | Anesthesiology Progress Note ---
Date of Service February 18, 2020 Anesthesia Post Procedure Vital Signs Vital Signs: Temp Pulse Pulse Pulse Pulse Resp BP 02/18/20 15:40 63 22 155/75 H 02/18/20 15:30 63 20 155/72 H 02/18/20 15:20 58 L 18 152/72 H 02/18/20 15:10 60 18 146/70 H 02/18/20 15:00 56 L 20 159/70 H 02/18/20 14:50 62 16 163/75 H 02/18/20 14:40 66 22 159/71 H 02/18/20 14:34 99.7 F H 70 22 160/75 H 02/18/20 11:58 98.6 F 68 18 135/74 02/18/20 11:12 98.4 F 69 19 144/77 H 02/18/20 07:20 98.4 F 97 H 19 129/75 02/18/20 07:00 85 02/18/20 04:00 98.1 F 98 H 20 150/83 H 02/17/20 23:51 98.2 F 80 20 144/81 H 02/17/20 22:00 85 111/62 02/17/20 21:30 93 H 157/78 H 02/17/20 20:37 98.2 F 77 20 158/76 H 02/17/20 20:10 99.9 F H 69 22 156/71 H 02/17/20 20:00 69 20 156/75 H 02/17/20 19:50 76 23 154/77 H 02/17/20 19:46 99 H 02/17/20 19:41 100.2 F H 80 15 143/74 H Pulse Ox 02/18/20 15:40 94 02/18/20 15:30 94 02/18/20 15:20 95 02/18/20 15:10 95 02/18/20 15:00 96 02/18/20 14:50 100 02/18/20 14:40 100 02/18/20 14:34 99 02/18/20 11:58 92 02/18/20 11:12 93 02/18/20 07:20 96 02/18/20 07:00 02/18/20 04:00 91 02/17/20 23:51 94 02/17/20 22:00 02/17/20 21:30 02/17/20 20:37 92 02/17/20 20:10 92 02/17/20 20:00 93 02/17/20 19:50 94 02/17/20 19:46 02/17/20 19:41 94 Pain Intensity Right Abdomen: Pain Intensity: 5 Transfer of Care Handoff Completed per policy Notes Mental Status: alert / awake / arousable and participated in evaluation Patient Amnestic to Procedure: Yes Nausea / Vomiting: adequately controlled Pain: adequately controlled Airway Patency, RR, SpO2: stable & adequate BP & HR: stable & adequate Hydration State: stable & adequate Anesthetic Complications: no major complications apparent and Pt Satisfied with anesthetic care
--- NOTE | 2020-02-18 16:09 | Operative Report (OR) ---
DATE OF OPERATION: 02/18/2020 PREOPERATIVE DIAGNOSES: Acute cholecystitis, cholelithiasis. POSTOPERATIVE DIAGNOSES: Acute cholecystitis with cholelithiasis with gangrene gallbladder. OPERATION: Laparoscopic cholecystectomy, HELLEN drainage x1. SURGEON: Manuel Mcintosh MD. ANESTHESIA: General. ESTIMATED BLOOD LOSS: About 10 mL. FINDINGS: Significant inflammation on the gallbladder, acute cholecystitis with food pus inside the gallbladder cavity. COMPLICATIONS: None. INDICATIONS FOR THE PROCEDURE: This is a 74-year-old female who was admitted to hospital for acute cholecystitis. The patient had an ERCP done yesterday and we recommended to do the laparoscopic cholecystectomy, possible open, possible cholangiogram. I did talk to the patient about the benefit, the risk, alternate procedure. I indicated the risks may include but not limited such as bleeding, infection, injury to common bile duct, bile leak, abscess, myocardial infarction, even . The patient understands. She signed informed consent and I answered all questions. DETAILS OF PROCEDURE: We brought the patient to the OR, put the patient in the supine position. The patient received SCD on bilateral legs to prevent DVT. Also, patient received 3.375 grams Zosyn IV for prophylactic antibiotic. The patient received general anesthesia without difficulties. Abdomen was prepped and draped in routine sterile fashion. After timeout, I injected the local anesthesia by using 1% lidocaine mixed with 0.5% Marcaine just above the umbilicus. Then I made a small incision just above umbilicus, opened fascia and opened peritoneum under direct vision, put a Valentino trocar in, connected to CO2 to create pneumoperitoneum. Flow rate was 6 liter per minute. Pressure not more than 14 mmHg. Once we got a nice pneumoperitoneum, we put the camera in, looked around the abdomen, it showed normal finding on the liver. However, the gallbladder showed significant inflammation. This was gangrene gallbladder. Once we confirmed diagnosis, we put two 5 mm trocars on the right upper quadrant, one 12 trocar on the epigastric area. Once all trocars in, we used the grasper to hold the base of gallbladder, put the direction to the diaphragm, another grasper to hold the pouch of gallbladder, put the latter to expunge the triangle of [place]ot. The cystic duct was identified and mobilized; however, the cyst duct had significant dilatation and about 1 cm long and the cystic duct had content of a stone, we milked the stone back to the gallbladder cavity. Then we used 10 mm metal clip and clipped the proximal cystic duct x2 and the distal cystic duct x1 and then we used the scissors for transection of cystic duct. At this moment, we found the patient had some pus coming from the gallbladder side. We suctioned all the pus. The cystic artery was identified and mobilized. I put two 10 mm metal clips on the proximal cystic artery, one on the distal cystic artery and then used a scissor for transection of cystic artery and rechecked, no active bleeding. Then we used the Bovie to take down gallbladder from the liver bed and rechecked no active bleeding, no bile leak. Then we removed gallbladder through the catch bag. Then we reinserted Valentino trocar in, connected to CO2 to create pneumoperitoneum, again looked around the abdomen, no active bleeding, no bile leak from the liver bed and based on patient has significant pus in the gallbladder cavity, we decided to put one 10 mm HELLEN drainage in near the gallbladder at bedside. Then we fixed the HELLEN tube on the skin by using 0 nylon and then we removed all trocar under direct vision. No active bleeding from the trocar sites. Pneumoperitoneum was released. I closed the umbilical incision, fascial layer by using 0 Vicryl [id number] x2, closed subcutaneous layer by using 2-0 Vicryl interruptedly, closed skin by using 4-0 Vicryl continuous running, closed the epigastric incision and fascial layer by using 0 Vicryl [id number] x2, closed subcutaneous layer by using 2-0 Vicryl interruptedly, closed skin by using 4-0 Vicryl continuous running, another two 5 mm trocar site was closed skin only by using 4-0 Vicryl. Then, we put the dressing on. The patient tolerated the procedure well. All instrument, needle and sponge count were correct x2 at the end of case. The patient transferred to recovery room in stable condition. Specimen sent to pathology. After the procedure, I did talk to the patient and daughter about the OR finding and the procedure we did, she understands. I attest to the content of the Intraoperative Record and any orders documented therein. Any exception s are noted below.
[2020-02-18] MEDS ORDERED: IPRATROPIUM BROMIDE HFA INHALER INH PRN (16:41)
[2020-02-18] MEDS: CEROVITE ADV FORMULA TAB PO SCH (17:36)
[2020-02-18] MEDS: HYDROmorphone INJ 0.5 MG/0.5 ML SYR IV PRN (18:58)
--- NOTE | 2020-02-18 19:05 | Hospitalist Progress Note ---
Date of Service February 18, 2020 Assessment & Plan (1) Cholecystitis with gangrene of gallbladder: WBC down to 10k, no fever s/p lap vinh on 02/[address] Mcintosh, tolerated well, no complications check labs in the AM diet per general surgery (2) Gram-negative bacteremia: one set of positive blood cultures continue Zosyn IV follow up final results, no fever source is cholangitis and cholecystitis, biliary stent placed and lap vinh today (3) Cholangitis: ERCP on 02/16 with evidence of pus draining from biliary duct stent placed to promote drainage continue Zosyn IV no fever, WBC 10k (4) Cholelithiasis: with cholecystitis lap vinh today (5) Abdominal pain, acute, right upper quadrant: Concern for choledocholilthiasis given filling defect in the distal common bile duct. Patient afebrile, HD stable at present. Ill in appearance. see above pain better with Dilaudid IV due to cholecystitis, cholangitis, gall stones (6) Substernal chest pain: Patient with slight elevation in troponin, stable. No acute EKG changes. Most likely in setting of acute illness, sepsis. trop up slightly to 0.1 this is all demand ischemia with acute cholangitis, cholelithiasis (7) Dyslipidemia: Chronic -Holding Atorvastatin (8) Hypertension: Chronic. Stable -Hold Amlodipine -Continue Metoprolol -Continue to monitor (9) Elevated LFTs: In setting of concerning choledocholithiasis -GI consult as above -General surgery consult -Repeat LFTs are stable ERCP today, biliary stent placed (10) Chronic obstructive pulmonary disease: Stable respiratory status -Continue Flulticasone/Vilanerol -DuoNebs PRN F/E/N - NSS at 125mL/hr, monitor electrolytes, NPO Ppx - SCDs Code - DNR/DNI Dispo - Admit to PCU (11) Hypomagnesemia: replace with 1gm IV (12) Hypokalemia: down to 2.8 today 40mEq IV given today, repeat tomorrow Admission and Anticipated Discharge Date Admission Date: February 16, 2020 Subjective patient with less pain today after ERCP yesterday reviewed labs, WBC down to 10k, K low at 2.8 Cr stable at 0.9 patient NPO for lap vinh she denied any chest pain, cough, fever/chills, nausea, diarrhea reviewed operative report from this afternoon evidence of gangrenous gall bladder, no complications of surgery blood cultures still with gram negative bacilli, still awaiting specific bacteria and sensitivity Review of Systems Review of Systems: All systems reviewed & are unremarkable except as noted in Subjective Constitutional: + fatigue and + weakness; no fever, no chills and no sweats Respiratory: no cough and no dyspnea Cardiovascular: no chest pain Gastrointestinal: + abdominal pain; no nausea, no vomiting, no constipation and no diarrhea/loose stools Physical Exam Constitutional: well developed, + ill appearing and well groomed; no acute distress Eyes: normal visual hurd by confrontation, + scleral abnormality (mild icterus), PERRL and EOM intact bilaterally ENMT: external ear and nose normal, oropharynx normal Neck: trachea midline, no thyromegaly Respiratory: normal respiratory effort, lungs clear to auscultation Cardiovascular: RRR, no murmur, no edema Gastrointestinal (Abdomen): Inspection/Auscultation: abdomen normal to inspection and normal bowel sounds; abdomen not distended Percussion/Palpation: + abdomen tender (RUQ), abdomen soft and + tympanic to percussion; no guarding, abdomen not rigid and no ascites Musculoskeletal: no cyanosis or clubbing, extremities motor strength 5/5 Skin: no rashes, warm and dry Neurologic: patellar DTR's 2+ bilat, sensation intact and PERRL, EOMI, accommodation nl, no face palsy, no dysarthria Psychiatric: A+Ox3, euthymic affect Lymphatic: no cervical or axillary lymphadenopathy Results & Data Results & Data ([facility]) Vital Signs (Past 12 Hours) Vital Signs Temp Pulse Pulse Pulse Resp BP Pulse Ox 02/18/20 18:09 37.1 C 72 18 155/80 H 995 H 02/18/20 17:38 36.9 C 66 18 152/74 H 94 02/18/20 17:10 36.6 C 62 18 153/76 H 92 02/18/20 16:45 36.8 C 72 18 146/76 H 91 02/18/20 16:30 36.9 C 66 20 152/79 H 92 02/18/20 15:50 37.0 C 73 23 145/84 H 94 02/18/20 15:40 63 22 155/75 H 94 02/18/20 15:30 63 20 155/72 H 94 02/18/20 15:20 58 L 18 152/72 H 95 02/18/20 15:10 60 18 146/70 H 95 02/18/20 15:00 56 L 20 159/70 H 96 02/18/20 14:50 62 16 163/75 H 100 02/18/20 14:40 66 22 159/71 H 100 02/18/20 14:34 37.6 C H 70 22 160/75 H 99 02/18/20 11:58 37 C 68 18 135/74 92 02/18/20 11:12 36.9 C 69 19 144/77 H 93 02/18/20 07:20 36.9 C 97 H 19 129/75 96 Laboratory Results Laboratory Results - last 24 hr 02/18/20 02/18/20 02/18/20 06:54 06:54 14:43 WBC 10.85 H RBC 4.53 Hgb 14.0 Hct 42.3 MCV 93.4 MCH 30.9 MCHC 33.1 RDW Std Deviation 49.2 H RDW Coeff of Deana 14.5 Plt Count 222 MPV 9.0 Immature Gran % (Auto) 0.2 Neut % (Auto) 83.9 Lymph % (Auto) 7.3 [place] % (Auto) 8.5 Eos % (Auto) 0.0 Baso % (Auto) 0.1 Neut # (Auto) 9.11 H Lymph # (Auto) 0.79 L [place] # (Auto) 0.92 H Eos # (Auto) 0.00 Baso # (Auto) 0.01 Immature Gran # (Auto) 0.02 Sodium 139 Potassium 2.8 L D Chloride 102 Carbon Dioxide 31 Anion Gap 6.0 BUN 22 H Creatinine 0.94 D Est Cr Clr Drug Dosing 51.9 Est GFR ( Amer) 68.8 Est GFR (Non-Af Amer) 59.3 BUN/Creatinine Ratio 23.0 H Glucose 99 POC Glucose 126 H Calcium 9.3 Total Bilirubin 1.4 H AST 39 H ALT 132 H Alkaline Phosphatase 316 H Total Protein 6.5 Albumin 2.3 L Globulin 4.2 H Albumin/Globulin Ratio 0.6 L Microbiology 02/17/20 01:26 Blood Aerobic Blood Culture - Preliminary Gram negative bacilli 02/17/20 01:26 Blood Anaerobic Blood Culture - Preliminary Gram negative bacilli 02/17/20 01:19 Blood Aerobic Blood Culture - Preliminary Gram negative bacilli 02/17/20 01:19 Blood Anaerobic Blood Culture - Preliminary Gram negative bacilli 02/17/20 00:40 Urine,Clean Catch Urine Culture - Final More than three types of organisms present, all low counts mixed probable skin surendra. No further identifications or sensitivities to follow. Medications Administered Current Inpatient Medications Acetaminophen (Acetaminophen 325 Mg Tab) 650 mg PO Q4H PRN PRN Reason: Pain or Fever Stop: 03/18/20 00:41 Hydrocodone Bitart/Acetaminophen (Hydrocodone/Acetaminophen 10/325 Tab) 2 tab PO Q6H PRN PRN Reason: Pain Stop: 03/03/20 16:40 Albuterol (Albut/Ipratrop 3mg/0.5mg Neb 3 Ml Vial) 3 ml NEB Q4R PRN PRN Reason: Shortness Of Breath Stop: 03/18/20 06:59 Ascorbic Acid (Ascorbic Acid 500 Mg Tab) 1 mg PO QAM ON LICENSE OF [facility] Stop: 03/20/20 08:59 Aspirin (Aspirin 81 Mg Ectab) 81 mg PO Q2D@0900 ON LICENSE OF [facility] Stop: 03/20/20 08:59 Docusate Sodium (Docusate Sodium 100 Mg Cap) 100 mg PO BID PRN PRN Reason: Constipation Stop: 03/18/20 00:41 Fish Oil ([place]-3 (Purified Fish Oil) 1 Gm Cap) 1 gm PO QAM ON LICENSE OF [facility] Stop: 03/20/20 08:59 Fluticasone/Vilanterol (Fluticasone/Vilanterol 100/25mcg 14 Puffs/Inhaler) 1 puffs INH HS ON LICENSE OF [facility] Stop: 03/18/20 00:59 Last Admin: 02/17/20 22:07 Dose: Not Given Documented by: Gabapentin (Gabapentin 300 Mg Cap) 300 mg PO HS ON LICENSE OF [facility] Stop: 03/18/20 20:59 Last Admin: 02/17/20 22:08 Dose: Not Given Documented by: Hydrochlorothiazide (Hydrochlorothiazide 25 Mg Tab) 25 mg PO DAILY ON LICENSE OF [facility] Stop: 03/20/20 08:59 Hydromorphone HCl (Hydromorphone Inj 0.5 Mg/0.5 Ml Syr) 0.5 mg IV Q4 PRN PRN Reason: Pain Stop: 03/02/20 08:57 Last Admin: 02/18/20 18:58 Dose: 0.5 mg Documented by: Piperacillin Sod/Tazobactam (Sod 3.375 gm/ Dextrose) 115 mls @ 28.75 mls/hr IV Q8H ON LICENSE OF [facility]; Protocol Stop: 02/27/20 17:59 Last Admin: 02/18/20 17:17 Dose: 28.8 mls/hr Documented by: Pantoprazole Sodium 40 mg/ (Syringe) 10 mls @ 5 mls/min IV BID ON LICENSE OF [facility] Stop: 03/18/20 21:39 Last Admin: 02/18/20 08:11 Dose: 5 mls/min Documented by: Ipratropium [place] (Ipratropium [place] Hfa Inhaler) 2 puffs INH QID PRN PRN Reason: shortness of breath or wheezing Stop: 03/19/20 16:40 Metoprolol Succinate (Metoprolol Succ 25mg Ext Rel Tab) 25 mg PO DAILY ON LICENSE OF [facility] Stop: 03/18/20 08:59 Last Admin: 02/18/20 08:11 Dose: 25 mg Documented by: Miscellaneous Information (Piperacill/Tazobac Consult Active) 1 ea N/A UD PRN PRN Reason: Consult Stop: 03/18/20 08:53 Morphine Sulfate (Morphine Sulfate 2 Mg/Ml Carp) 1 mg IV Q2H PRN PRN Reason: Pain Stop: 03/02/20 00:41 Last Admin: 02/18/20 17:17 Dose: 1 mg Documented by: Multivitamins/Minerals (Cerovite Adv Formula Tab) 1 tab PO DAILY ON LICENSE OF [facility] Stop: 03/19/20 17:59 Last Admin: 02/18/20 17:36 Dose: 1 tab Documented by: Nortriptyline HCl (Nortriptyline Hcl 25 Mg Cap) 25 mg PO HS [facility]OM[facility] Stop: 03/18/20 20:59 Last Admin: 02/17/20 22:09 Dose: 25 mg Documented by: Ondansetron HCl (Ondansetron Inj 2 Mg/Ml 2 Ml Vial) 4 mg IV Q6H PRN PRN Reason: Nausea Stop: 03/18/20 00:41 Last Admin: 02/17/20 22:17 Dose: 4 mg Documented by: Saccharomyces Boulardii (Saccharomyces Boulardii 250 Mg Cap) 250 mg PO DAILY ON LICENSE OF [facility] Stop: 03/18/20 08:59 Last Admin: 02/18/20 08:33 Dose: Not Given Documented by: Vitamin D (Cholecalciferol 1,000 Units 25 Mcg Tab) 1,000 units PO DAILY [facility]OM[facility] Stop: 03/20/20 08:59 Vitamin E (Tocopheryl, Dl-Alpha 100 Units Cap) 100 units PO DAILY [facility] Stop: 03/20/20 08:59 PG Care Time/CCT Total # of Minutes Spent Total Time Spent with Patient: Total time spent is greater than 50% in coordin ation of care (as documented) at patient's floor/unit and/or counseling patient: Coding Level of Care Code 60290 Subseq Hosp Care Lv 3 Diagnoses Cholecystitis with gangrene of gallbladder K82.A1 Gram-negative bacteremia R78.81 Cholangitis K83.09 Cholelithiasis K80.20 Abdominal pain, acute, right upper quadrant R10.11 Substernal chest pain R07.2 Dyslipidemia E78.5 Hypertension I10 Hypertension type: unspecified Elevated LFTs R79.89 Chronic obstructive pulmonary disease J44.9 COPD type: unspecified COPD Hypomagnesemia E83.42 Hypokalemia E87.6 (1) Chronic obstructive pulmonary disease COPD type: unspecified COPD Qualified Code(s): J44.9 - Chronic obstructive pulmonary disease, unspecified (2) Hypertension Hypertension type: unspecified Qualified Code(s): I10 - Essential (primary) hypertension
[2020-02-18] MEDS: HYDROcodone/ACETAMINOPHEN 10/325 TAB PO PRN (20:13)
[2020-02-18] MEDS: FLUTICASONE/VILANTEROL 100/25MCG 14 PUFFS/INHALER INH SCH (20:13)
[2020-02-18] MEDS: GABAPENTIN 300 MG CAP PO SCH (20:14)
[2020-02-18] MEDS: NORTRIPTYLINE HCL 25 MG CAP PO SCH (20:14)
[2020-02-19] MEDS: PIPERACILLIN/TAZOBACTAM 3.375 GM in DEXTROSE 5% 100 ML IV SCH ×2 (02:14→10:22)
[2020-02-19] MEDS: HYDROcodone/ACETAMINOPHEN 10/325 TAB PO PRN ×4 (03:54→20:36)
[2020-02-19 05:58] LABS: Basophils # (auto) 0.01 K/uL (0-0.2); Basophils % (auto) 0.1 %; Hematocrit (blood only) 40.6 % (37-47); Hemoglobin 13.4 g/dL (12.0-16.0); Immature Granulocytes # (auto) 0.02 K/uL (0.00-0.02); Immature Granulocytes % (auto) 0.2 %; Lymphocytes # (auto) 1.01 K/uL (1.2-3.4); Lymphocytes % (auto) 10.1 %; Mean Corpuscular Hemoglobin 31.1 pg (25-34); Mean Corpuscular Volume 94.2 fL (80-100); Mean Platelet Volume 8.8 fL (7.4-10.4); Monocytes # (auto) 0.95 K/uL (0.11-0.59); Monocytes % (auto) 9.5 %; Neutrophils # (auto) 8.05 K/uL (1.4-6.5); Neutrophils % (auto) 80.1 %; Platelet Count 217 K/uL (130-400); RDW Coefficient of Variation 14.4 % (11.5-14.5); RDW Standard Deviation 49.6 fL (36.4-46.3); Red Blood Count 4.31 M/uL (4.2-5.4); White Blood Count 10.04 K/uL (4.8-10.8)
[2020-02-19 06:35] LABS: Albumin Level 2.2 gm/dl (3.4-5.0); BUN Creatinine Ratio 17.7 (10-20); Calcium 8.7 mg/dl (8.5-10.1); Creatinine Clr Calc Pharmacy 44.7 ml/min; Est GFR (African American) 56.9; Est GFR (Non-African American) 49.1; Magnesium 1.7 mg/dl (1.8-2.4); Potassium 3.1 mmol/L (3.5-5.1)
[2020-02-19 06:38] LABS: Albumin Globulin Ratio 0.6 (0.9-2); Bilirubin,Total 1.1 mg/dl (0.2-1); Globulin 3.8 gm/dl (2.5-4.0)
--- NOTE | 2020-02-19 07:55 | Magnetic Resonance Report ---
MR MRCP CLINICAL HISTORY: Right-sided abdominal pain. History of cholecystectomy. ERCP with stent placement. Possible biliary mass. COMPARISON STUDY: ERCP dated 02/17/2020, gallbladder ultrasound dated 02/16/2020 FINDINGS: Breath hold images were acquired. MIP images were obtained. The gallbladder is surgically absent. There is no pancreatic ductal dilatation. There are tiny cystic pancreatic lesions the largest of whi ch measures 5 mm. 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 There is an indwelling biliary enteric stent There are no ductal filling defects to indicate calculi. There is trace bilateral perinephric fluid. There is trace or duodenal fluid IMPRESSION: 1. Surgically absent gallbladder 2. 8 mm common bile duct. No calculi identified. No ductal masses identified. 3. Indwelling biliary enteric stent 4. No evidence of pancreatic ductal dilatation 5. 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 Electronically signed by: Wesley Kerr M.D. 02/19/2020 7:53 AM
[2020-02-19] MEDS: HYDROmorphone INJ 0.5 MG/0.5 ML SYR IV PRN (08:23)
[2020-02-19] MEDS: MAGNESIUM SULFATE / D5W 1 GM/100 ML BAG IV SCH ×2 (08:44→11:01)
[2020-02-19] MEDS: POTASSIUM CHLORIDE 20 MEQ TABCR PO SCH ×3 (08:49→20:26)
[2020-02-19] MEDS: SACCHAROMYCES BOULARDII 250 MG CAP PO SCH ×2 (08:55→08:58)
[2020-02-19] MEDS: hydroCHLOROthiazide 25 MG TAB PO SCH (08:56)
[2020-02-19] MEDS: TOCOPHERYL, DL-ALPHA 100 UNITS CAP PO SCH (08:56)
[2020-02-19] MEDS: ASPIRIN 81 MG ECTAB PO SCH (08:56)
[2020-02-19] MEDS: METOPROLOL SUCC 25MG EXT REL TAB PO SCH (08:56)
[2020-02-19] MEDS: CHOLECALCIFEROL 1,000 UNITS 25 MCG TAB PO SCH (08:57)
[2020-02-19] MEDS: CEROVITE ADV FORMULA TAB PO SCH (08:58)
[2020-02-19] MEDS: PANTOprazole 40 MG in SYRINGE 0 ML IV SCH ×2 (08:59→20:27)
[2020-02-19] MEDS: OMEGA-3 (PURIFIED FISH OIL) 1 GM CAP PO SCH (09:00)
[2020-02-19] MEDS ORDERED: ASCORBIC ACID 500 MG TAB PO SCH (09:00)
--- NOTE | 2020-02-19 09:15 | Gastroenterology Progress Note ---
Date of Service February 19, 2020 Assessment & Plan (1) Choledocholithiasis: Pt is a 74 y/o female w RUQ abd pain radiating to back, nausea, subjective fever, chills. On eval noted to have elevated LFTs and u/s evidence of cholelithiasis w biliary dilation concerning for choledocholithiasis She underwent ERCP 02/16 - found to have gastritis and duodenitis, biliary stenosis, cells sent for cytology showed benign cells; pus & sludge drained, biliary sphincterectomy and biliary stent placement performed. EUS wasn't performed to minimize anesthesia duration in setting of septic pt w increasing Troponin likely related to demand ischemia. She is currently POD #1 s/p lap cholecystectomy (gangrenous gallbladder). Blood cx speciated K. pneumonia reis sensitive. MRI/MRCP obtained yesterday w/o concerning pancreas mass, biliary stent in place. LFTs trending down, she is clinically improving. - IV PPI BID, then convert to PO BID form x 2 months upon DC - Continue Zosyn IV for cholangitis; Upon DC can change to Cipro and Flagyl PO x 7 days duration - Avoid NSAIDs and high dose ASA x 5 days after sphincterectomy - Trend LFTs - Repeat ERCP in 4-6weeks' time for stent exchange. Will plan to perform EUS at that time as well - Diet advancement per Surgery - GI to sign off; pls recall prn Admission and Anticipated Discharge Date Admission Date: February 16, 2020 Supervising Physician Co-Signing Physician Notes I have discussed the patient's management with the advanced practitioner. Please refer to the nurse practitioner's note for the documented findings and plan of care. Subjective Pt afebrile overnight. Reports feeling much better - no CP, SOB, + mild cramping on abd area. Tolerating CL diet w/o n/v. Review of Systems Review of Systems: All systems reviewed & are unremarkable except as noted in HPI & below Physical Exam Constitutional: WD/WN, vitals as above well groomed and cooperative Eyes: PERRL, conjunctivae normal, anicteric sclerae ENMT: external ear and nose normal, oropharynx normal Respiratory: no respiratory distress and does not use accessory muscles Cardiovascular: RRR, no murmur, no edema Gastrointestinal (Abdomen): Abd soft, tender over surgical sites. BS present. HELLEN drain x 1 draining serosangenous fluid Skin: no rashes, warm and dry Psychiatric: A+Ox3, euthymic affect Lymphatic: no lymphedema Results & Data ([facility]) Vital Signs (Past 12 Hours) Vital Signs Temp Pulse Pulse Pulse Resp BP Pulse Ox 02/19/20 08:00 36.3 C L 92 H 18 134/73 92 02/19/20 04:08 36.6 C 77 18 160/80 H 94 02/19/20 00:00 02/18/20 23:55 36.6 C 64 16 136/73 95 Pulse Ox 02/19/20 08:00 02/19/20 04:08 02/19/20 00:00 98 02/18/20 23:55
[2020-02-19] MEDS: ASCORBIC ACID 500 MG TAB PO SCH (11:01)
--- NOTE | 2020-02-19 13:45 | Hospitalist Progress Note ---
Date of Service February 19, 2020 Assessment & Plan (1) Cholecystitis with gangrene of gallbladder: WBC normal at 10k, no fever s/p lap vinh on 02/[address] Mcintosh, tolerated well, no complications liquid diet, advance per surgery + flatus today, no nausea (2) Gram-negative bacteremia: one set of positive blood cultures -- Klebsiella treated initially with Zosyn IV - change to Cipro IV today, PO on discharge WBC normal, no fever source is cholangitis and cholecystitis, biliary stent placed and lap vinh 02/17 (3) Cholangitis: ERCP on 02/16 with evidence of pus draining from biliary duct stent placed to promote drainage continue Cipro 400mg q12 IV no fever, WBC 10k (4) Cholelithiasis: with cholecystitis lap vinh 02/17 (5) Abdominal pain, acute, right upper quadrant: better after surgery, continue Hydrocodone due to cholecystitis, cholangitis, gall stones (6) Substernal chest pain: Patient with slight elevation in troponin, stable. No acute EKG changes. Most likely in setting of acute illness, sepsis. trop up slightly to 0.1 this is all demand ischemia with acute cholangitis, cholelithiasis (7) Dyslipidemia: Chronic -Holding Atorvastatin (8) Hypertension: Chronic. Stable -resume Amlodipine -Continue Metoprolol -Continue to monitor (9) Elevated LFTs: In setting of concerning choledocholithiasis -GI consult as above -General surgery consult -Repeat LFTs are stable ERCP 02/16, biliary stent placed (10) Chronic obstructive pulmonary disease: Stable respiratory status -Continue Flulticasone/Vilanerol -DuoNebs PRN F/E/N - liquid diet Ppx - SCDs Code - DNR/DNI Dispo - continue PCU, consult PT/OT (11) Hypomagnesemia: replace with 1gm IV (12) Hypokalemia: down to 2.8 today 40mEq IV given today, repeat tomorrow Admission and Anticipated Discharge Date Admission Date: February 16, 2020 Subjective patient feeling better today asking if we can increase frequency of Hydrocodone to 4 hours she is tolerating liquids, + flatus, less pain in RUQ reviewed labs, WBC down to 10k, Hb stable, Cr stable magnesium low at 1.7, K low at 3.3, replacements ordered discussed with general surgery blood culture with Klebsiella, sensitive to Cipro, will stop Zosyn Review of Systems Review of Systems: All systems reviewed & are unremarkable except as noted in Subjective Respiratory: no cough and no dyspnea Gastrointestinal: + abdominal pain; no nausea, no vomiting, no constipation a nd no diarrhea/loose stools Physical Exam Constitutional: well developed and well groomed; no acute distress Eyes: normal visual hurd by confrontation, + scleral abnormality (mild icterus), PERRL and EOM intact bilaterally ENMT: external ear and nose normal, oropharynx normal Neck: trachea midline, no thyromegaly Respiratory: normal respiratory effort, lungs clear to auscultation Cardiovascular: RRR, no murmur, no edema Gastrointestinal (Abdomen): Inspection/Auscultation: abdomen normal to inspection and normal bowel sounds; abdomen not distended Percussion/Palpation: + abdomen tender (RUQ), abdomen soft and + tympanic to percussion; no guarding, abdomen not rigid and no ascites Musculoskeletal: no cyanosis or clubbing, extremities motor strength 5/5 Skin: no rashes, warm and dry Neurologic: patellar DTR's 2+ bilat, sensation intact and PERRL, EOMI, accommodation nl, no face palsy, no dysarthria Psychiatric: A+Ox3, euthymic affect Lymphatic: no cervical or axillary lymphadenopathy Results & Data Results & Data ([facility]) Vital Signs (Past 12 Hours) Vital Signs Temp Pulse Pulse Pulse Resp BP Pulse Ox 02/19/20 12:00 36.3 C L 81 18 113/67 94 02/19/20 08:00 36.3 C L 66 92 H 18 134/73 92 02/19/20 04:08 36.6 C 77 18 160/80 H 94 Laboratory Results Laboratory Results - last 24 hr 02/19/20 02/19/20 05:51 05:51 WBC 10.04 RBC 4.31 Hgb 13.4 Hct 40.6 MCV 94.2 MCH 31.1 MCHC 33.0 RDW Std Deviation 49.6 H RDW Coeff of Deana 14.4 Plt Count 217 MPV 8.8 Immature Gran % (Auto) 0.2 Neut % (Auto) 80.1 Lymph % (Auto) 10.1 [place] % (Auto) 9.5 Eos % (Auto) 0.0 Baso % (Auto) 0.1 Neut # (Auto) 8.05 H Lymph # (Auto) 1.01 L [place] # (Auto) 0.95 H Eos # (Auto) 0.00 Baso # (Auto) 0.01 Immature Gran # (Auto) 0.02 Sodium 139 Potassium 3.1 L Chloride 102 Carbon Dioxide 35 H Anion Gap 2.0 L BUN 19 H Creatinine 1.10 Est Cr Clr Drug Dosing 44.7 Est GFR ( Amer) 56.9 Est GFR (Non-Af Amer) 49.1 BUN/Creatinine Ratio 17.7 Glucose 112 H Calcium 8.7 Magnesium 1.7 L Total Bilirubin 1.1 H AST 24 ALT 92 H Alkaline Phosphatase 256 H Total Protein 6.0 L Albumin 2.2 L Globulin 3.8 Albumin/Globulin Ratio 0.6 L Medications Administered Current Inpatient Medications Acetaminophen (Acetaminophen 325 Mg Tab) 650 mg PO Q4H PRN PRN Reason: Pain or Fever Stop: 03/18/20 00:41 Hydrocodone Bitart/Acetaminophen (Hydrocodone/Acetaminophen 10/325 Tab) 2 tab PO Q4H PRN PRN Reason: Pain Stop: 03/03/20 16:40 Last Admin: 02/19/20 20:36 Dose: 2 tab Documented by: Albuterol (Albut/Ipratrop 3mg/0.5mg Neb 3 Ml Vial) 3 ml NEB Q4R PRN PRN Reason: Shortness Of Breath Stop: 03/18/20 06:59 Ascorbic Acid (Ascorbic Acid 500 Mg Tab) [facility] [place] Stop: 03/20/20 10:29 Last Admin: 02/19/20 11:01 Dose: 1,000 mg Documented by: Aspirin (Aspirin 81 Mg Ectab) 81 mg PO Q2D@0900 [facility] Stop: 03/20/20 08:59 Last Admin: 02/19/20 08:56 Dose: 81 mg Documented by: Docusate Sodium (Docusate Sodium 100 Mg Cap) 100 mg PO BID PRN PRN Reason: Constipation Stop: 03/18/20 00:41 Last Admin: 02/19/20 10:21 Dose: 100 mg Documented by: Fish Oil ([place]-3 (Purified Fish Oil) 1 Gm Cap) 1 gm PO QAM [facility] Stop: 03/20/20 08:59 Last Admin: 02/19/20 09:00 Dose: 1 gm Documented by: Fluticasone/Vilanterol (Fluticasone/Vilanterol 100/25mcg 14 Puffs/Inhaler) 1 puffs INH HS [facility] Stop: 03/18/20 00:59 Last Admin: 02/19/20 20:25 Dose: 1 puffs Documented by: Gabapentin (Gabapentin 300 Mg Cap) 300 mg PO HS [facility]OMAS Stop: 03/18/20 20:59 Last Admin: 02/19/20 20:26 Dose: 300 mg Documented by: Hydrochlorothiazide (Hydrochlorothiazide 25 Mg Tab) 25 mg PO DAILY [facility] Stop: 03/20/20 08:59 Last Admin: 02/19/20 08:56 Dose: 25 mg Documented by: Hydromorphone HCl (Hydromorphone Inj 0.5 Mg/0.5 Ml Syr) 0.5 mg IV Q4 PRN PRN Reason: Pain Stop: 03/02/20 08:57 Last Admin: 02/19/20 08:23 Dose: 0.5 mg Documented by: Pantoprazole Sodium 40 mg/ (Syringe) 10 mls @ 5 mls/min IV BID [facility] Stop: 03/18/20 21:39 Last Admin: 02/19/20 20:27 Dose: 5 mls/min Documented by: Ciprofloxacin (Cipro / D5w) 400 mg in 200 mls @ 100 mls/hr IV Q12H [facility] Stop: 02/29/20 17:59 Last Infusion: 02/19/20 19:38 Dose: Infused Documented by: Ipratropium [place] (Ipratropium [place] Hfa Inhaler) 2 puffs INH QID PRN PRN Reason: shortness of breath or wheezing Stop: 03/19/20 16:40 Metoprolol Succinate (Metoprolol Succ 25mg Ext Rel Tab) 25 mg PO DAILY [facility] Stop: 03/18/20 08:59 Last Admin: 02/19/20 08:56 Dose: 25 mg Documented by: Morphine Sulfate (Morphine Sulfate 2 Mg/Ml Carp) 1 mg IV Q2H PRN PRN Reason: Pain Stop: 03/02/20 00:41 Last Admin: 02/18/20 17:17 Dose: 1 mg Documented by: Multivitamins/Minerals (Cerovite Adv Formula Tab) 1 tab PO DAILY [facility] Stop: 03/19/20 17:59 Last Admin: 02/19/20 08:58 Dose: 1 tab Documented by: Nortriptyline HCl (Nortriptyline Hcl 25 Mg Cap) 25 mg PO HS [facility] Stop: 03/18/20 20:59 Last Admin: 02/19/20 20:26 Dose: 25 mg Documented by: Ondansetron HCl (Ondansetron Inj 2 Mg/Ml 2 Ml Vial) 4 mg IV Q6H PRN PRN Reason: Nausea Stop: 03/18/20 00:41 Last Admin: 02/17/20 22:17 Dose: 4 mg Documented by: Potassium Chloride (Potassium Chloride 20 Meq Tabcr) 20 meq PO TID [facility]OM[facility] Stop: 03/20/20 08:59 Last Admin: 02/19/20 20:26 Dose: 20 meq Documented by: Saccharomyces Boulardii (Saccharomyces Boulardii 250 Mg Cap) 250 mg PO DAILY [facility] Stop: 03/18/20 08:59 Last Admin: 02/19/20 08:58 Dose: 250 mg Documented by: Vitamin D (Cholecalciferol 1,000 Units 25 Mcg Tab) 1,000 units PO DAILY [facility] Stop: 03/20/20 08:59 Last Admin: 02/19/20 08:57 Dose: 1,000 units Documented by: Vitamin E (Tocopheryl, Dl-Alpha 100 Units Cap) 100 units PO DAILY [facility] Stop: 03/20/20 08:59 Last Admin: 02/19/20 08:56 Dose: 100 units Documented by: PG Care Time/CCT Total # of Minutes Spent Total Time Spent with Patient: Total time spent is greater than 50% in coordination of care (as documented) at patient's floor/unit and/or counseling patient: Coding Level of Care Code 10424 Subseq Hosp Care Lvl 3 Diagnoses Cholecystitis with gangrene of gallbladder K82.A1 Gram-negative bacteremia R78.81 Cholangitis K83.09 Cholelithiasis K80.20 Abdominal pain, acute, right upper quadrant R10.11 Substernal chest pain R07.2 Dyslipidemia E78.5 Hypertension I10 Hypertension type: unspecified Elevated LFTs R79.89 Chronic obstructive pulmonary disease J44.9 COPD type: unspecified COPD Hypomagnesemia E83.42 Hypokalemia E87.6 (1) Chronic obstructive pulmonary disease COPD type: unspecified COPD Qualified Code(s): J44.9 - Chronic obstructive pulmonary disease, unspecified (2) Hypertension Hypertension type: unspecified Qualified Code(s): I10 - Essential (primary) hypertension
[2020-02-19] MEDS ORDERED: CIPROFLOXACIN / D5W 400 MG/200 ML BAG IV SCH (14:00)
--- NOTE | 2020-02-19 15:58 | Surgery Progress Note ---
Date of Service pt feels much better, less abdominal pain, no nausea, no vomiting, no fever, February 19, 2020 Assessment & Plan (1) Choledocholithiasis: (2) Cholelithiasis: pt is a 74 year-old female who was admitted to hospital for abdominal pain, IMP: cholelithiasis Plan, I recommend to do laparoscopic cholecystectomy after ERCP tomorrow, D/W benefits, risks and alternatives of the surgery, pt agrees with the surgery, I answered all questions, 02/18/2020 10:26AM, GI doctor recommend to do cholecystectomy, I recommend to do laparoscopic cholecystectomy possible open or cholangiogram, D/W benefits, risks and alternatives of the surgery, the risks - infection, bleeding, injury CBd, MA, , pt understood, she agrees with the surgery, I answered all questions, 02/19/2020 3:57Pm, POD 1 doing better, regular diet, OOB repeat labs in am, will F/U, possible discharge home tomorrow, Admission and Anticipated Discharge Date Admission Date: February 16, 2020 Supervising Physician Co-Signing Physician Notes I have discussed the patient's management with the advanced practitioner. Please refer to the nurse practitioner's note for the documented findings and plan of care. Subjective Pt afebrile overnight. Reports feeling much better - no CP, SOB, + mild cramping on abd area. Tolerating CL diet w/o n/v. Review of Systems Constitutional: as per Subjective / HPI Eyes: as per Subjective / HPI Ear, Nose, Mouth, Throat: as per Subjective / HPI Respiratory: as per Subjective / HPI COPD Cardiovascular: as per Subjective / HPI Additional Comments: HTN, Chest pain Gastrointestinal: as per Subjective / HPI Genitourinary: as per Subjective / HPI Musculoskeletal: as per Subjective / HPI spinal stenosis Integumentary: as per Subjective / HPI Neurologic: as per Subjective / HPI Psychiatric: as per Subjective / HPI Endocrine: as per Subjective / HPI Hematologic / Lymphatic: as per Subjective / HPI Physical Exam Constitutional: WD/WN, vitals as above well developed and well nourished Eyes: PERRL, conjunctivae normal, anicteric sclerae ENMT: external ear and nose normal, oropharynx normal Neck: trachea midline, no thyromegaly Respiratory: normal respiratory effort, lungs clear to auscultation normal respiratory effort Cardiovascular: RRR, no murmur, no edema Rate/Rhythm: regular rate and regular rhythm Gastrointestinal (Abdomen): Percussion/Palpation: + abdomen tender and abdomen soft mild tenderness at incision site, no distend, HELLEN 140ml cloud fluid Musculoskeletal: no cyanosis or clubbing, extremities motor strength 5/5 Skin: no rashes, warm and dry Neurologic: patellar DTR's 2+ bilat, sensation intact Psychiatric: Orientation: alert and oriented x 3 Results & Data ([facility]) Vital Signs (Past 12 Hours) Vital Signs Temp Pulse Pulse Pulse Resp BP Pulse Ox 02/19/20 15:46 66 02/19/20 15:12 36.5 C 63 20 139/75 2 L 02/19/20 15:10 85 L 02/19/20 12:00 36.3 C L 81 18 113/67 94 02/19/20 08:00 36.3 C L 66 92 H 18 134/73 92 02/19/20 04:08 36.6 C 77 18 160/80 H 94 Laboratory Results Abnormal lab results 02/19/20 02/19/20 Range/Units 05:51 05:51 RDW Std Deviation 49.6 H (36.4-46.3) fL Neut # (Auto) 8.05 H (1.4-6.5) K/uL Lymph # (Auto) 1.01 L (1.2-3.4) K/uL [place] # (Auto) 0.95 H (0.11-0.59) K/uL Potassium 3.1 L (3.5-5.1) mmol/L Carbon Dioxide 35 H (21-32) mmol/L Anion Gap 2.0 L (3-11) BUN 19 H (7-18) mg/dl Glucose 112 H (70-99) mg/dl Magnesium 1.7 L (1.8-2.4) mg/dl Total Bilirubin 1.1 H (0.2-1) mg/dl ALT 92 H (12-78) U/L Alkaline Phosphatase 256 H (45-117) U/L Total Protein 6.0 L (6.4-8.2) gm/dl Albumin 2.2 L (3.4-5.0) gm/dl Albumin/Globulin Ratio 0.6 L (0.9-2)
[2020-02-19] MEDS: CIPROFLOXACIN / D5W 400 MG/200 ML BAG IV SCH (16:57)
[2020-02-19] MEDS: FLUTICASONE/VILANTEROL 100/25MCG 14 PUFFS/INHALER INH SCH (20:25)
[2020-02-19] MEDS: GABAPENTIN 300 MG CAP PO SCH (20:26)
[2020-02-19] MEDS: NORTRIPTYLINE HCL 25 MG CAP PO SCH (20:26)
[2020-02-20] MEDS: HYDROcodone/ACETAMINOPHEN 10/325 TAB PO PRN ×4 (00:13→21:23)
[2020-02-20] MEDS: CIPROFLOXACIN / D5W 400 MG/200 ML BAG IV SCH ×2 (06:15→19:04)
[2020-02-20 08:41] LABS: Basophils # (auto) 0.02 K/uL (0-0.2); Basophils % (auto) 0.2 %; Eosinophils # (auto) 0.06 K/uL (0-0.5); Eosinophils % (auto) 0.7 %; Hematocrit (blood only) 39.9 % (37-47); Hemoglobin 12.9 g/dL (12.0-16.0); Immature Granulocytes # (auto) 0.02 K/uL (0.00-0.02); Immature Granulocytes % (auto) 0.2 %; Lymphocytes # (auto) 1.51 K/uL (1.2-3.4); Lymphocytes % (auto) 17.4 %; Mean Corpuscular Hemoglobin 30.9 pg (25-34); Mean Corpuscular Hgb Conc 32.3 g/dL (32-36); Mean Corpuscular Volume 95.5 fL (80-100); Monocytes # (auto) 0.69 K/uL (0.11-0.59); Neutrophils # (auto) 6.37 K/uL (1.4-6.5); Neutrophils % (auto) 73.5 %; Platelet Count 239 K/uL (130-400); RDW Coefficient of Variation 14.2 % (11.5-14.5); Red Blood Count 4.18 M/uL (4.2-5.4); White Blood Count 8.67 K/uL (4.8-10.8)
[2020-02-20 09:06] LABS: Albumin Level 2.2 gm/dl (3.4-5.0); Calcium 8.9 mg/dl (8.5-10.1); Creatinine Clr Calc Pharmacy 51.7 ml/min; Est GFR (African American) 67.1; Est GFR (Non-African American) 57.9; Potassium 3.2 mmol/L (3.5-5.1)
[2020-02-20 09:09] LABS: Albumin Globulin Ratio 0.6 (0.9-2); Bilirubin,Total 0.9 mg/dl (0.2-1); Globulin 3.8 gm/dl (2.5-4.0)
[2020-02-20] MEDS: METOPROLOL SUCC 25MG EXT REL TAB PO SCH (09:41)
[2020-02-20] MEDS: hydroCHLOROthiazide 25 MG TAB PO SCH (09:41)
[2020-02-20] MEDS: PANTOprazole 40 MG in SYRINGE 0 ML IV SCH ×2 (09:41→21:27)
[2020-02-20] MEDS: ASCORBIC ACID 500 MG TAB PO SCH (09:42)
[2020-02-20] MEDS: TOCOPHERYL, DL-ALPHA 100 UNITS CAP PO SCH (09:42)
[2020-02-20] MEDS: OMEGA-3 (PURIFIED FISH OIL) 1 GM CAP PO SCH (09:42)
[2020-02-20] MEDS: CEROVITE ADV FORMULA TAB PO SCH (09:42)
[2020-02-20] MEDS: CHOLECALCIFEROL 1,000 UNITS 25 MCG TAB PO SCH (09:42)
[2020-02-20] MEDS: POTASSIUM CHLORIDE 20 MEQ TABCR PO SCH ×3 (09:43→20:08)
--- NOTE | 2020-02-20 13:20 | Surgery Progress Note ---
Date of Service POD 2 doing fine, less abdominal pain, no fever, HELLEN 70 ml clear February 20, 2020 Assessment & Plan (1) Choledocholithiasis: (2) Cholelithiasis: pt is a 74 year-old female who was admitted to hospital for abdominal pain, IMP: cholelithiasis Plan, I recommend to do laparoscopic cholecystectomy after ERCP tomorrow, D/W benefits, risks and alternatives of the surgery, pt agrees with the surgery, I answered all questions, 02/18/2020 10:26AM, GI doctor recommend to do cholecystectomy, I recommend to do laparoscopic cholecystectomy possible open or cholangiogram, D/W benefits, risks and alternatives of the surgery, the risks - infection, bleeding, injury CBd, [place], , pt understood, she agrees with the surgery, I answered all questions, 02/19/2020 3:57Pm, POD 1 doing better, regular diet, OOB repeat labs in am, will F/U, possible discharge home tomorrow, 02/20/2020, 1:21PM doing fine, continue treatment, [employer] developer surgeon cover this weekend, thanks, Admission and Anticipated Discharge Date Admission Date: February 16, 2020 Supervising Physician Co-Signing Physician Notes I have discussed the patient's management with the advanced practitioner. Please refer to the nurse practitioner's note for the documented findings and plan of care. Subjective patient feeling better today asking if we can increase frequency of Hydrocodone to 4 hours she is tolerating liquids, + flatus, less pain in RUQ reviewed labs, WBC down to 10k, Hb stable, Cr stable magnesium low at 1.7, K low at 3.3, replacements ordered discussed with general surgery blood culture with Klebsiella, sensitive to Cipro, will stop Zosyn Review of Systems Constitutional: as per Subjective / HPI Eyes: as per Subjective / HPI Ear, Nose, Mouth, Throat: as per Subjective / HPI Respiratory: as per Subjective / HPI COPD Cardiovascular: as per Subjective / HPI Additional Comments: HTN, Chest pain Gastrointestinal: as per Subjective / HPI Genitourinary: as per Subjective / HPI Musculoskeletal: as per Subjective / HPI spinal stenosis Integumentary: as per Subjective / HPI Neurologic: as per Subjective / HPI Psychiatric: as per Subjective / HPI Endocrine: as per Subjective / HPI Hematologic / Lymphatic: as per Subjective / HPI Physical Exam Constitutional: WD/WN, vitals as above well developed and well nourished Eyes: PERRL, conjunctivae normal, anicteric sclerae ENMT: external ear and nose normal, oropharynx normal Neck: trachea midline, no thyromegaly Respiratory: normal respiratory effort, lungs clear to auscultation normal respiratory effort Cardiovascular: RRR, no murmur, no edema Rate/Rhythm: regular rate and regular rhythm Gastrointestinal (Abdomen): Percussion/Palpation: + abdomen tender (mild tenderness at incision site, no redness, ) and abdomen soft Musculoskeletal: no cyanosis or clubbing, extremities motor strength 5/5 Skin: no rashes, warm and dry Neurologic: patellar DTR's 2+ bilat, sensation intact Psychiatric: Orientation: alert and oriented x 3 Results & Data ([facility]) Vital Signs (Past 12 Hours) Vital Signs Temp Pulse Pulse Resp BP Pulse Ox 02/20/20 11:51 36.9 C 65 18 141/68 H 99 02/20/20 08:38 36.8 C 66 18 139/74 96 02/20/20 08:00 73 02/20/20 04:05 36.4 C L 68 20 136/74 94 Laboratory Results Abnormal lab results 02/20/20 02/20/20 Range/Units 08:15 08:15 RBC 4.18 L (4.2-5.4) M/uL RDW Std Deviation 50.0 H (36.4-46.3) fL [place] # (Auto) 0.69 H (0.11-0.59) K/uL Potassium 3.2 L (3.5-5.1) mmol/L Carbon Dioxide 33 H (21-32) mmol/L Glucose 117 H (70-99) mg/dl Alkaline Phosphatase 208 H (45-117) U/L Total Protein 6.0 L (6.4-8.2) gm/dl Albumin 2.2 L (3.4-5.0) gm/dl Albumin/Globulin Ratio 0.6 L (0.9-2)
--- NOTE | 2020-02-20 15:34 | Hospitalist Progress Note ---
Date of Service February 20, 2020 Assessment & Plan (1) Cholecystitis with gangrene of gallbladder: WBC normal at 8k, no fever s/p lap vinh on 02/[address] Mcintosh, tolerated well, no complications regular diet today, no nausea some loose stools today discuss discharge plans with surgery tomorrow, either home on Sunday or Sunday (2) Gram-negative bacteremia: one set of positive blood cultures -- Klebsiella treated initially with Zosyn IV - change to Cipro IV, PO on discharge WBC normal, no fever source is cholangitis and cholecystitis, biliary stent placed and lap vinh 02/17 (3) Cholangitis: ERCP on 02/16 with evidence of pus draining from biliary duct stent placed to promote drainage continue Cipro 400mg q12 IV no fever, WBC 8k GI plans for EUS/EGD in 4-6 weeks, Madai will arrange (4) Cholelithiasis: with cholecystitis lap vinh 02/17 (5) Abdominal pain, acute, right upper quadrant: better after surgery, continue Hydrocodone due to cholecystitis, cholangitis, gall stones (6) Substernal chest pain: Patient with slight elevation in troponin, stable. No acute EKG changes. Most likely in setting of acute illness, sepsis. trop up slightly to 0.1 this is all demand ischemia with acute cholangitis, cholelithiasis (7) Dyslipidemia: Chronic -Holding Atorvastatin (8) Hypertension: Chronic. Stable -resume Amlodipine -Continue Metoprolol -Continue to monitor (9) Elevated LFTs: In setting of concerning choledocholithiasis -GI consult as above -General surgery consult -Repeat LFTs are stable, bili normal, Alk phos still a little high ERCP 02/16, biliary stent placed (10) Chronic obstructive pulmonary disease: Stable respiratory status -Continue Flulticasone/Vilanerol -DuoNebs PRN F/E/N - regular diet Ppx - SCDs Code - DNR/DNI Dispo - transfer to medical/surgical, PT/OT (11) Hypomagnesemia: replaced with 1gm IV, resolved (12) Hypokalemia: up to 3.3 today, replacement ordered, repeat tomorrow Admission and Anticipated Discharge Date Admission Date: February 16, 2020 Subjective patient doing a lot better today, sitting up in a chair, appetite is coming back slowly less RUQ pain today, no nausea, + flatus and then had a loose BM, she is concerned about C diff reviewed labs, WBC normal, Hb stable at 12, K is 3.2, Cr normal, bili normal will move to medical/surgical floor as she is stable on telemetry she is hopeful to go home tomorrow, will assess in the morning Review of Systems Review of Systems: All systems reviewed & are unremarkable except as noted in Subjective Constitutional: + weakness; no fever and no fatigue Respiratory: + dyspnea on exertion; no cough and no dyspnea Cardiovascular: no chest pain, no palpitations, no syncope and no edema Gastrointestinal: + abdominal pain (mild RUQ) and + diarrhea/loose stools; no nausea, no vomiting and no constipation Physical Exam Constitutional: well developed and well groomed; no acute distress Neck: trachea midline, no thyromegaly Respiratory: normal respiratory effort, lungs clear to auscultation Cardiovascular: RRR, no murmur, no edema Gastrointestinal (Abdomen): Inspection/Auscultation: abdomen normal to inspection and normal bowel sounds; abdomen not distended Percussion/Palpation: + abdomen tender (RUQ), abdomen soft and + tympanic to percussion; no guarding, abdomen not rigid and no ascites Musculoskeletal: no cyanosis or clubbing, extremities motor strength 5/5 Skin: no rashes, warm and dry Neurologic: patellar DTR's 2+ bilat, sensation intact and PERRL, EOMI, accommodation nl, no face palsy, no dysarthria Psychiatric: A+Ox3, euthymic affect Lymphatic: no cervical or axillary lymphadenopathy Results & Data Results & Data ([facility]) Vital Signs (Past 12 Hours) Vital Signs Temp Pulse Pulse Resp BP BP Pulse Ox 02/20/20 15:15 36.8 C 67 18 131/78 92 02/20/20 14:08 02/20/20 13:59 36.8 C 68 18 130/71 92 02/20/20 11:51 36.9 C 65 18 141/68 H 99 02/20/20 08:38 36.8 C 66 18 139/74 96 02/20/20 08:00 73 02/20/20 04:05 36.4 C L 68 20 136/74 94 Pulse Ox Pulse Ox 02/20/20 15:15 02/20/20 14:08 91 82 L 02/20/20 13:59 02/20/20 11:51 02/20/20 08:38 02/20/20 08:00 02/20/20 04:05 Laboratory Results Laboratory Results - last 24 hr 02/20/20 02/20/20 08:15 08:15 WBC 8.67 RBC 4.18 L Hgb 12.9 Hct 39.9 MCV 95.5 MCH 30.9 MCHC 32.3 RDW Std Deviation 50.0 H RDW Coeff of Deana 14.2 Plt Count 239 MPV 9.0 Immature Gran % (Auto) 0.2 Neut % (Auto) 73.5 Lymph % (Auto) 17.4 [place] % (Auto) 8.0 Eos % (Auto) 0.7 Baso % (Auto) 0.2 Neut # (Auto) 6.37 Lymph # (Auto) 1.51 [place] # (Auto) 0.69 H Eos # (Auto) 0.06 Baso # (Auto) 0.02 Immature Gran # (Auto) 0.02 Sodium 136 Potassium 3.2 L Chloride 100 Carbon Dioxide 33 H Anion Gap 3.0 BUN 15 Creatinine 0.96 Est Cr Clr Drug Dosing 51.7 Est GFR ( Amer) 67.1 Est GFR (Non-Af Amer) 57.9 BUN/Creatinine Ratio 16.0 Glucose 117 H Calcium 8.9 Total Bilirubin 0.9 AST 20 ALT 64 Alkaline Phosphatase 208 H Total Protein 6.0 L Albumin 2.2 L Globulin 3.8 Albumin/Globulin Ratio 0.6 L Medications Administered Current Inpatient Medications Acetaminophen (Acetaminophen 325 Mg Tab) 650 mg PO Q4H PRN PRN Reason: Pain or Fever Stop: 03/18/20 00:41 Hydrocodone Bitart/Acetaminophen (Hydrocodone/Acetaminophen 10/325 Tab) 2 tab PO Q4H PRN PRN Reason: Pain Stop: 03/03/20 16:40 Last Admin: 02/20/20 14:30 Dose: 2 tab Documented by: Albuterol (Albut/Ipratrop 3mg/0.5mg Neb 3 Ml Vial) 3 ml NEB Q4R PRN PRN Reason: Shortness Of Breath Stop: 03/18/20 06:59 Ascorbic Acid (Ascorbic Acid 500 Mg Tab) 1,000 mg PO QAM THOMAS Stop: 03/20/20 10:29 Last Admin: 02/20/20 09:42 Dose: 1,000 mg Documented by: Aspirin (Aspirin 81 Mg Ectab) 81 mg PO Q2D@0900 THMOAS Stop: 03/20/20 08:59 Last Admin: 02/19/20 08:56 Dose: 81 mg Documented by: Docusate Sodium (Docusate Sodium 100 Mg Cap) 100 mg PO BID PRN PRN Reason: Constipation Stop: 03/18/20 00:41 Last Admin: 02/19/20 10:21 Dose: 100 mg Documented by: Fish Oil ([place]-3 (Purified Fish Oil) 1 Gm Cap) 1 gm PO QAM THOMAS Stop: 03/20/20 08:59 Last Admin: 02/20/20 09:42 Dose: 1 gm Documented by: Fluticasone/Vilanterol (Fluticasone/Vilanterol 100/25mcg 14 Puffs/Inhaler) 1 puffs INH HS THOMAS Stop: 03/18/20 00:59 Last Admin: 02/19/20 20:25 Dose: 1 puffs Documented by: Gabapentin (Gabapentin 300 Mg Cap) 300 mg PO HS THOMAS Stop: 03/18/20 20:59 Last Admin: 02/19/20 20:26 Dose: 300 mg Documented by: Hydrochlorothiazide (Hydrochlorothiazide 25 Mg Tab) 25 mg PO DAILY [facility] Stop: 03/20/20 08:59 Last Admin: 02/20/20 09:41 Dose: 25 mg Documented by: Hydromorphone HCl (Hydromorphone Inj 0.5 Mg/0.5 Ml Syr) 0.5 mg IV Q4 PRN PRN Reason: Pain Stop: 03/02/20 08:57 Last Admin: 02/19/20 08:23 Dose: 0.5 mg Documented by: Pantoprazole Sodium 40 mg/ (Syringe) 10 mls @ 5 mls/min IV BID THOMAS Stop: 03/18/20 21:39 Last Admin: 02/20/20 09:41 Dose: 5 mls/min Documented by: Ciprofloxacin (Cipro / D5w) 400 mg in 200 mls @ 100 mls/hr IV Q12H THOMAS Stop: 02/29/20 17:59 Last Infusion: 02/20/20 08:56 Dose: Infused Documented by: Ipratropium [place] (Ipratropium [place] Hfa Inhaler) 2 puffs INH QID PRN PRN Reason: shortness of breath or wheezing Stop: 03/19/20 16:40 Metoprolol Succinate (Metoprolol Succ 25mg Ext Rel Tab) 25 mg PO DAILY THOMAS Stop: 03/18/20 08:59 Last Admin: 02/20/20 09:41 Dose: 25 mg Documented by: Morphine Sulfate (Morphine Sulfate 2 Mg/Ml [place]) 1 mg IV Q2H PRN PRN Reason: Pain Stop: 03/02/20 00:41 Last Admin: 02/18/20 17:17 Dose: 1 mg Documented by: Multivitamins/Minerals (Cerovite Adv Formula Tab) 1 tab PO DAILY THOMAS Stop: 03/19/20 17:59 Last Admin: 02/20/20 09:42 Dose: 1 tab Documented by: Nortriptyline HCl (Nortriptyline Hcl 25 Mg Cap) 25 mg PO HS THOMAS Stop: 03/18/20 20:59 Last Admin: 02/19/20 20:26 Dose: 25 mg Documented by: Ondansetron HCl (Ondansetron Inj 2 Mg/Ml 2 Ml Vial) 4 mg IV Q6H PRN PRN Reason: Nausea Stop: 03/18/20 00:41 Last Admin: 02/17/20 22:17 Dose: 4 mg Documented by: Potassium Chloride (Potassium Chloride 20 Meq Tabcr) 20 meq PO TID THOMAS Stop: 03/20/20 08:59 Last Admin: 02/20/20 14:30 Dose: 20 meq Documented by: Saccharomyces Boulardii (Saccharomyces Boulardii 250 Mg Cap) 250 mg PO DAILY THOMAS Stop: 03/18/20 08:59 Last Admin: 02/19/20 08:58 Dose: 250 mg Documented by: Vitamin D (Cholecalciferol 1,000 Units 25 Mcg Tab) 1,000 units PO DAILY THOMAS Stop: 03/20/20 08:59 Last Admin: 02/20/20 09:42 Dose: 1,000 units Documented by: Vitamin E (Tocopheryl, Dl-Alpha 100 Units Cap) 100 units PO DAILY THOMAS Stop: 03/20/20 08:59 Last Admin: 02/20/20 09:42 Dose: 100 units Documented by: PG Care Time/CCT Total # of Minutes Spent Total Time Spent with Patient: Total time spent is greater than 50% in coordina tion of care (as documented) at patient's floor/unit and/or counseling patient: Coding Level of Care Code 15982 Subseq Hosp Care Lvl 3 Diagnoses Cholecystitis with gangrene of gallbladder K82.A1 Gram-negative bacteremia R78.81 Cholangitis K83.09 Cholelithiasis K80.20 Abdominal pain, acute, right upper quadrant R10.11 Substernal chest pain R07.2 Dyslipidemia E78.5 Hypertension I10 Hypertension type: unspecified Elevated LFTs R79.89 Chronic obstructive pulmonary disease J44.9 COPD type: unspecified COPD Hypomagnesemia E83.42 Hypokalemia E87.6 (1) Chronic obstructive pulmonary disease COPD type: unspecified COPD Qualified Code(s): J44.9 - Chronic obstructive pulmonary disease, unspecified (2) Hypertension Hypertension type: unspecified Qualified Code(s): I10 - Essential (primary) hypertension
[2020-02-20] MEDS: FLUTICASONE/VILANTEROL 100/25MCG 14 PUFFS/INHALER INH SCH (20:08)
[2020-02-20] MEDS: GABAPENTIN 300 MG CAP PO SCH (20:08)
[2020-02-20] MEDS: NORTRIPTYLINE HCL 25 MG CAP PO SCH (20:08)
[2020-02-21] MEDS: HYDROcodone/ACETAMINOPHEN 10/325 TAB PO PRN ×2 (06:10→13:45)
[2020-02-21] MEDS: CIPROFLOXACIN / D5W 400 MG/200 ML BAG IV SCH (06:27)
--- NOTE | 2020-02-21 06:39 | Surgery Progress Note ---
Date of Service February 21, 2020 Assessment & Plan (1) Cholecystitis with gangrene of gallbladder: -s/p cholecystectomy on 02/17 -keep HELLEN drain in place at time of d/c; Dr. Mcintosh to remove in office -switch to oral abx. at time of d/c as above. clinically do well. ok from my standpoint for d/c when ok with primary service. f/u Dr. Mcintosh next week. d/c with HELLEN in place Admission and Anticipated Discharge Date Admission Date: February 16, 2020 Subjective Pt. denies CP or SOB. Minimal abdominal pain. No N/V and is tolerating oral intake. She reports ambulating in hallway. Physical Exam Constitutional: well developed and well nourished; no acute distress Neck: trachea midline Respiratory: normal respiratory effort; no respiratory distress and no labored breathing Gastrointestinal (Abdomen): HELLEN drain in place with small amount of yellow colored fluid; abdomen is soft and non-distended Psychiatric: A+Ox3, euthymic affect Results & Data ([facility]) Vital Signs (Past 12 Hours) Vital Signs Temp Pulse Resp BP Pulse Ox 02/20/20 23:16 36.6 C 69 17 132/76 94 PG Care Time/CCT Total # of Minutes Spent Total Time Spent with Patient: Total time spent is greater than 50% in coordination of care (as documented) at patient's floor/unit and/or counseling patient: Coding Level of Care Code None Diagnoses Cholecystitis with gangrene of gallbladder K82.A1
[2020-02-21] MEDS: TOCOPHERYL, DL-ALPHA 100 UNITS CAP PO SCH (09:14)
[2020-02-21] MEDS: PANTOprazole 40 MG in SYRINGE 0 ML IV SCH (09:14)
[2020-02-21] MEDS: CHOLECALCIFEROL 1,000 UNITS 25 MCG TAB PO SCH (09:15)
[2020-02-21] MEDS: POTASSIUM CHLORIDE 20 MEQ TABCR PO SCH (09:15)
[2020-02-21] MEDS: METOPROLOL SUCC 25MG EXT REL TAB PO SCH (09:15)
[2020-02-21] MEDS: SACCHAROMYCES BOULARDII 250 MG CAP PO SCH (09:15)
[2020-02-21] MEDS: CEROVITE ADV FORMULA TAB PO SCH (09:15)
[2020-02-21] MEDS: ASPIRIN 81 MG ECTAB PO SCH (09:15)
[2020-02-21] MEDS: hydroCHLOROthiazide 25 MG TAB PO SCH (09:15)
[2020-02-21] MEDS: ASCORBIC ACID 500 MG TAB PO SCH (09:15)
[2020-02-21] MEDS: OMEGA-3 (PURIFIED FISH OIL) 1 GM CAP PO SCH (09:15)
[2020-02-21 09:47] LABS: Cdiff Antigen Positive; Cdiff Toxin A+B Negative Cdiff Toxin (Negative)
--- NOTE | 2020-02-21 10:32 | Discharge Summary ---
Date of Service February 21, 2020 Admission HPI Per Admitting Provider 74yo female with history of COPD on 2L O2 qHS, HTN, HLP presenting with complaint of RUQ pain. Patient reports developing acute RUQ pain yesterday AM that radiated to the back with associated nausea and vomiting x 1 episode. This AM she had some epigastric discomfort. She called EMS, Nitro and ASA were given in the field which made her epigastric pain worse. She has subjective fevers and chills, poor appetite and decreased PO intake x 2 days. Denies jaundice/icterus, denies diarrhea. No additional complaints at this time. Principal Diagnosis Klebsiella Sepsis due to cholangitis, cholecystitis Discharge Exam Constitutional well developed and well groomed; no acute distress Eyes PERRL, conjunctivae normal, anicteric sclerae Neck trachea midline, no thyromegaly Respiratory normal respiratory effort, lungs clear to auscultation Cardiovascular RRR, no murmur, no edema Gastrointestinal (Abdomen) Inspection/Auscultation: abdomen normal to inspection and normal bowel sounds; abdomen not distended Percussion/Palpation: + abdomen tender (RUQ), abdomen soft and + tympanic to percussion; no guarding, abdomen not rigid and no ascites Musculoskeletal no cyanosis or clubbing, extremities motor strength 5/5 Skin no rashes, warm and dry Neurologic patellar DTR's 2+ bilat, sensation intact and PERRL, EOMI, accommodation nl, no face palsy, no dysarthria Psychiatric A+Ox3, euthymic affect Lymphatic no cervical or axillary lymphadenopathy Discharge Data Allergies Allergy/AdvReac Type Severity Reaction Status Date / Time bacitracin Allergy Unknown EMACERATION Verified 02/16/20 19:13 SKIN AT SITE neomycin Allergy Unknown EMACERATION Verified 02/16/20 19:13 SKIN AT SITE polymyxin B Allergy Unknown EMACERATION Verified 02/16/20 19:13 SKIN AT SITE bupropion AdvReac Severe lips Verified 02/16/20 19:13 swelling Aminoglycosides AdvReac Intermediate Verified 02/16/20 19:13 Consultations 02/16/20 21:35 ED Decision to Admit Stat 02/17/20 00:42 Consult Gastroenterology Routine 02/17/20 03:49 Consult General Surgery Routine Procedures Performed Operation Date: 02/17/20 08:25 Actual Procedures p Endoscopic Retrograde Cholangiopancreatogram(Not Applicable) - Casey Couch MD s Endoscopic Ultrasonography Upper(Not Applicable) - Casey Couch MD Operation Date: 02/18/20 10:40 Actual Procedures p Laparoscopic Cholecystectomy(Not Applicable) - Manuel Mcintosh MD Ordered Studies 02/16/20 18:59 US gallbladder Stat 02/17/20 08:54 FL ERCP biliary ductal Routine 02/17/20 13:01 US upper EUS PACS images Routine 02/19/20 08:21 MR MRCP Routine Hospital Course (1) Cholecystitis with gangrene of gallbladder: WBC normal, no fever s/p lap vinh on 02/[address] Mcintosh, tolerated well, no complications regular diet past two days, no nausea some loose stools today and yesterday C diff gene positive but toxin NEGATIVE will discharge to home, discharge instructions provided for post op cholecystectomy keep HELLEN drain until she sees Dr. Mcintosh in office complete 5 more days of Cipro 500mg BID Hydrocodone q6 PRN for pain, working well (2) Gram-negative bacteremia: one set of positive blood cultures -- Klebsiella treated initially with Zosyn IV - changed to Cipro IV complete 5 more days of Cipro 500mg PO BID this will be 10 days total, sufficient for gram negative bacteremia with source of infection removed WBC normal, no fever source is cholangitis and cholecystitis, biliary stent placed and lap vinh 02/17 (3) Cholangitis: ERCP on 02/16 with evidence of pus draining from biliary duct stent placed to promote drainage continue Cipro 400mg q12 IV, change to Cipro PO on discharge no fever, WBC 8k GI plans for EUS/EGD in 4-6 weeks, Madai will arrange (4) Dyslipidemia: Chronic -Holding Atorvastatin (5) Hypertension: Chronic. Stable -resume Amlodipine -Continue Metoprolol -Continue to monitor (6) Chronic obstructive pulmonary disease: Stable respiratory status -Continue Flulticasone/Vilanerol -DuoNebs PRN F/E/N - regular diet Ppx - SCDs Code - DNR/DNI Dispo - transfer to medical/surgical, PT/OT (7) Hypomagnesemia: replaced with 1gm IV, resolved (8) Hypokalemia: resolved with PO replacement (9) Loose stools: history of C diff tested prior to discharge, the gene is positive but the toxin is NEGATIVE thus, active infection ruled out since she will continue on Cipro PO and she has concerns for developing active infection will place on Vancomycin 125mg PO BID x 7 days Florastor prescribed but she can eat Activia yogurt once a day as alternative for healthy gut bacteria Total Time Total Time Spent Total Time Spent (In Minutes): 36 minutes Total Time Includes: Examination of the Patient, Discharge Planning, Medication Reconciliation and Communication With Other Providers (general surgery) Discharge Plan Discharge Items Patient Disposition: Home - Self-Care Reason For Visit: RUQ PAIN Discharge Diagnosis: Choleycystitis with cholangitis Klebsiella bacteremia, sepsis Condition on Discharge: Good Goals: improve strength and mobility improve nutrition follow up with Dr. Mcintosh Activity: Per Instructions section Non-emergency contact: Primary Care Provider and Surgeon Call non-emergency contact if: you have any medication questions and your symptoms worsen Follow-up/Referrals: Sherry Syed MD [Primary Care Provider] - Manuel Mcintosh MD [Physician] - Diet: Regular Addtl Attending Provider Instructions: Medications: - CIPROFLOXACIN: take 500mg twice a day for 5 more days - VANCOMYCIN: take 125mg twice a day for C diff prophylxis, take for a week - HYDROCODONE: take every 4 as needed for pain - FLORASTOR: take daily, probiotic, if you don't want to fill this prescription you can eat Activia yogurt daily for healthy gut bacteria Cholecystitis, cholangitis, Klebsiella bacteremia treated with ERCP with stent to drain biliary ducts, [facility] will contact you about follow up EGD to remove stent in 4-6 weeks treated with lap cholecystectomy with Dr. Mcintosh pain control with Hydrocodone, advance diet as tolerated follow up with Dr. Mcintosh this week, he will remove HELLEN drain at this time, recommend calling his office on Sunday to arrange follow up see discharge instructions below continue Ciprofloxacin for 5 more days for 10 days total which is sufficient for gram negative bacteremia with a defined source that was removed you were treated with Zosyn at time of admission and then Cipro IV so you have been appropriately covered all admission Diarrhea: C diff gene is positive but the toxin is NEGATIVE, this rules out active infection will give you 7 days of Vancomycin 125mg PO twice a day to protect against active infection use Florastor or eat Activia yogurt to get healthy gut bacteria can use Imodium twice a day if diarrhea is bad but otherwise your bowels should improve COPD: lungs stable, no wheezing, no oxygen needed 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 Let water run over area and pat dry. - Leave steri strips on for one week. - Call the surgeon's office with any questions or concerns - - (ex. temperature higher than 101 degrees F, excessive bleeding or pain). MEDICATIONS: - Resume previous medications unless instructed otherwise by your surgeon. - Ibuprofen 600 mg every 6 hours with food - Percocet 1 every 4 hours, as needed for pain FOLLOW UP VISIT: - If not already scheduled, please call the office to schedule a two week follow-up appointment. Office number Pending Studies at Discharge: No Stand-Alone Forms: My [facility] [employer], Smoking Cessation Medications and DC Order Prescriptions: New Saccharomyces boulardii [Florastor] 250 mg Capsule 250 mg PO DAILY Qty: 14 RF: 0 ciprofloxacin HCl [Cipro] 500 mg tablet 500 mg PO BID Qty: 10 RF: 0 vancomycin 125 mg capsule 125 mg PO BID 7 Days Qty: 14 RF: 0 Continued hydrochlorothiazide 25 mg tablet 25 mg PO DAILY Qty: 90 RF: 3 Symbicort 160-4.5 mcg/actuation HFA aerosol inhaler 2 puff inhalation BID Qty: 30.6 RF: 3 amlodipine 5 mg tablet 5 mg PO QAM Qty: 90 RF: 1 metoprolol succinate 25 mg tablet extended release 24 hr 25 mg PO DAILY Qty: 90 RF: 3 nortriptyline 25 mg capsule 25 - 50 mg PO HS Qty: 60 RF: 3 gabapentin 300 mg capsule 300 mg PO HS Qty: 90 RF: 3 aspirin 81 mg tablet,delayed release (DR/EC) 81 mg PO UD RF: 0 hydrocodone-acetaminophen 10-325 mg tablet 2 tab PO Q6H MDD 8 tabs PRN (Reason: Pain) Qty: 240 RF: 0 vitamin E 100 unit capsule 100 units PO DAILY RF: 0 ipratropium bromide 17 mcg/actuation HFA aerosol inhaler 2 puffs inhalation QID PRN (Reason: shortness of breath or wheezing) Qty: 1 RF: 0 cholecalciferol (vitamin D3) 25 mcg (1,000 unit) capsule 1,000 units PO DAILY Qty: 90 RF: 0 PreserVision AREDS-2 [id number] Capsule 1 tab PO BID RF: 0 atorvastatin 20 mg tablet 20 mg PO HS RF: 0 ascorbic acid (vitamin C) 1,000 mg Tablet 1 g PO QAM RF: 0 [place]-3 350 mg-235 mg- 90 mg-597 mg Capsule,Delayed Release(Dr/Ec) 1 cap PO QAM RF: 0 Discharge Orders: Discharge Order (Routine); Ordered 02/21/20 Ordered By: Jarocho Andrade/Other Patient Handouts: Vancomycin capsules, Ciprofloxacin tablets Admission Data Admit Date/Time: 02/16/20 23:43 Attending Provider: Jarocho Lagos Admit Provider: Payal Mendes Primary Care Provider: Sherry Syed Other Providers: Payal Mendes ; Navjot Parks ; Manuel Mcintosh Other Interventions: Discharge Summary Assessment (RN) Last Done: 02/21/20 11:27 Coding Level of Care Code D/C Day Management >30 mins Diagnoses Cholecystitis with gangrene of gallbladder K82.A1 Gram-negative bacteremia R78.81 Cholangitis K83.09 Dyslipidemia E78.5 Hypertension I10 Hypertension type: unspecified Chronic obstructive pulmonary disease J44.9 COPD type: unspecified COPD Hypomagnesemia E83.42 Hypokalemia E87.6 Loose stools R19.5
== END 2020-02-21 13:48 | disposition home or self-care (01) | DRG 854 ==
LOC: EDUNIT# 17:42 → ED 17:42 → 2S 23:43 → SUATTDRO 23:43 → 2S 02-17 00:13 → 3N 02-20 13:56

== ENCOUNTER 2020-08-22 12:18 | Inpatient (IN) ==
[2020-08-22] MEDS ORDERED: SODIUM CHLORIDE 0.9% 1000ML 1,000 ML IV ONE ×2 (12:50→15:15)
[2020-08-22] MEDS ORDERED: ALBUT/IPRATROP 3MG/0.5MG NEB 3 ML VIAL NEB STA (12:53)
--- NOTE | 2020-08-22 12:58 | Emergency Department Note ---
History of Present Illness General Chief complaint: Weakness Stated complaint: WEAKNESS, HYPOTENSION Time Seen by Provider: 08/22/20 12:42 Source: patient and RN notes reviewed Mode of arrival: ambulatory Limitations: no limitations History of Present Illness Maximum Pain Intensity: 4 This patient is brought in by EMS after feeling weak for about a month. She says she just has not been eating well and feels very weak all over its been nonfocal. She did fall last night because she was so weak but denies any syn cope or injuries. She denies blood or melena stool she had diarrhea today but that was the first time. She has had no nausea or vomiting. No dysuria or hematuria. No back pain. Denies headache neck pain or stiffness. She does have a history of COPD and wears 2 L of oxygen primarily at night and as needed. She feels she has occasional shortness of breath related to that but in general her breathing is been okay. She has occasional cough. Denies chest pain. No abdominal pain. No difficulty speaking or swallowing. She may have had a slight fever. EMS did report that she had very poor living conditions and she had dried stool on her legs and buttocks and they were concerned about ability to care for self at this point given her illness. She was hypotensive in the 80s in the field but 100 systolic when she got here. Home Medications Medication Instructions Recorded Confirmed Type Thayne-3 1 cap PO QAM 09/25/18 08/22/20 History ascorbic acid (vitamin C) 1 g PO QAM 09/25/18 08/22/20 History vitamin E 100 unit capsule 100 units PO QAM 10/02/18 08/22/20 History cholecalciferol (vitamin D3) 25 1,000 units PO QAM #90 cap 04/06/19 08/22/20 History mcg (1,000 unit) capsule gabapentin 300 mg capsule 300 mg PO HS #90 cap 02/02/20 08/22/20 Rx aspirin 81 mg tablet,delayed 81 mg PO UD 02/03/20 08/22/20 History release PreserVision AREDS-2 1 tab PO BID 02/16/20 08/22/20 History atorvastatin 20 mg PO HS 02/16/20 08/22/20 History albuterol sulfate 90 mcg/actuation 2 puff INHALATION Q6H PRN #8.5 g 02/27/20 08/22/20 Rx aerosol inhaler metoprolol succinate 25 mg PO QAM 03/11/20 08/22/20 History garlic 1,000 mg PO PC 04/09/20 08/22/20 History hydrochlorothiazide 25 mg tablet 25 mg PO DAILY #90 tab 04/19/20 08/22/20 Rx nortriptyline 25 mg capsule 25 - 50 mg PO HS #60 cap 05/25/20 08/22/20 Rx amlodipine 5 mg tablet 5 mg PO DAILY #90 tab 06/11/20 08/22/20 Rx umeclidinium 62.5 mcg-vilanterol 1 inh INHALATION DAILY #60 ea 06/15/20 08/22/20 Rx 25 mcg/actuation powdr for inhalation hydrocodone 10 mg-acetaminophen 2 tab PO Q6H PRN 30 Days #240 tab 08/09/20 08/22/20 Rx 325 mg tablet MDD 8 tabs pantoprazole 40 mg tablet,delayed 40 mg PO DAILY #90 tab 08/19/20 08/22/20 Rx release Allergies Allergy/AdvReac Type Severity Reaction Status Date / Time bacitracin Allergy Unknown EMACERATION Verified 08/22/20 14:42 SKIN AT SITE neomycin Allergy Unknown EMACERATION Verified 08/22/20 14:42 SKIN AT SITE polymyxin B Allergy Unknown EMACERATION Verified 08/22/20 14:42 SKIN AT SITE bupropion AdvReac Severe lips Verified 08/22/20 14:42 swelling Aminoglycosides AdvReac Intermediate SKIN Verified 08/22/20 14:42 IRRITATION Past Med/Surg History Medical History Cholecystitis with gangrene of gallbladder s/p lap vinh on 02/18/[address] Mcintosh, tolerated well, no complications Chronic obstructive pulmonary disease Chronic osteoarthritis Clostridium difficile diarrhea 2018 DNR (do not resuscitate) Dyslipidemia Elevated troponin Noted in ED on 02/15. Per hospitalist progress note 02/16 (Dr. Lagos) "Most likely in setting of acute illness, sepsis. trop up slightly to 0.1 this is all demand ischemia with acute cholangitis, cholelithiasis" Hepatic steatosis Hyperparathyroidism, primary Hypertension Impaired fasting glucose Leukocytosis Resolved on 02/19 labs Lumbar spinal stenosis Migraine HX Nocturnal hypoxia on nocturnal oxygen therapy-2L/MIN NC HS Nontoxic multinodular goiter Venous insufficiency Surgical History History of appendectomy History of cholecystectomy History of colonoscopy History of hip replacement R/L History of knee replacement RIGHT Family History Daughter Family history of diabetes mellitus Other No pertinent family history Social History Smoking Status: Current every day smoker Age Started Using Tobacco: 18; packs per day: 0.5; Years Smoked: 55; Cigarettes Per Day: 5-10; Second Hand Exposure: No; Do You Dip or Chew Tobacco: No; Tobacco Cessation Education Requested by Patient: No Hx Alcohol Use: No Hx Substance Use: No Preferred Language: Amharic Communication Ability: Effective Visual Impairment: No Limitations Air Surveillance Operator Required: No Beliefs That Will Affect Care: None marital status: Current Living Situation: Spouse current occupational status: retired Other Information That Helps Us Care for You: No Feels Safe at Home: Yes Safety Concerns: Feels Safe At This Time Seatbelt Use: always Sunscreen Use: Yes Assistive Devices: Denture - Upper, Denture - Lower, Glasses, Oxygen - at Night and Walker Review of Systems A total of 10 systems reviewed and were otherwise negative Physical Exam Vital Signs Vital Signs - 24 hr 08/22/20 12:26 08/22/20 13:05 08/22/20 13:11 Temperature 37.2 C Temperature Source Oral Pulse Rate 106 H 86 Pulse Rate [Right Finger] 104 H Pulse Rhythm Regular Respiratory Rate 23 16 16 Respiratory Effort / Characteristics Spontaneous Non-Labored Spontaneous Non-Labored Blood Pressure 109/59 L Blood Pressure [Left Arm] 116/68 Blood Pressure Mean 75 Blood Pressure Mean [Left Arm] 84 Pulse Oximetry 96 95 96 Oxygen Delivery Method Nasal Cannula Nasal Cannula Nasal Cannula Oxygen Flow Rate 2 2 2 Sepsis Recent Fever Within 48 Hours No Sepsis New/Unexplained Change in Mental Status No Sepsis Action Taken by Nursing No Action Required 08/22/20 14:00 Temperature Temperature Source Pulse Rate Pulse Rate [Right Finger] Pulse Rhythm Respiratory Rate 20 Respiratory Effort / Characteristics Non-Labored Blood Pressure Blood Pressure [Left Arm] Blood Pressure Mean Blood Pressure Mean [Left Arm] Pulse Oximetry 95 Oxygen Delivery Method Nasal Cannula Oxygen Flow Rate 2 Sepsis Recent Fever Within 48 Hours Sepsis New/Unexplained Change in Mental Status Sepsis Action Taken by Nursing General: Chronically ill-appearing somewhat disheveled older female who appears in no acute distress, breathing comfortably on room air. Normal speech HEENT: Normal cephalic atraumatic. Pupils are equal round and reactive to light. Extraocular movements are intact. Oropharynx is pink with moist mucous membranes. No swelling of the mouth lips or tongue. Neck: Supple with a midline trachea. No meningeal signs or stiffness, no JVD or bruits. No Stridor. Chest: Rhonchi to auscultation bilaterally but No increased work of breathing. Heart: Regular rate and rhythm without murmurs or gallops. Abdomen: Soft nontender, nondistended without rebound guarding or rigidity. Extremities: No cyanosis clubbing or edema. No calf tenderness or assymetry Spine/Back. Non tender to palpation. No CVA tenderness Skin: Good turgor without rashes. Neurologic exam: Cranial nerves two through 12 are intact. Motor and sensation are intact and symmetrical throughout. Course Administered Medications Atorvastatin Calcium (Atorvastatin 20 Mg Tab) 20 mg PO HS THOMAS Stop: 09/21/20 20:59 Last Admin: 08/22/20 20:18 Dose: 20 mg Documented by: [id number] Gabapentin (Gabapentin 300 Mg Cap) 300 mg PO HS THOMAS Stop: 09/21/20 20:59 Last Admin: 08/22/20 20:18 Dose: 300 mg Documented by: [id number] Hydromorphone HCl (Hydromorphone Inj 0.5 Mg/0.5 Ml Syr) 0.5 mg IV Q2H PRN PRN Reason: severe Pain Stop: 09/05/20 17:20 Last Admin: 08/22/20 17:55 Dose: 0.5 mg Documented by: [id number] Potassium Chloride 30 meq/ (Sodium Chloride) 1,015 mls @ 150 mls/hr IV .Q6H46M THOMAS Stop: 09/21/20 17:44 Last Admin: 08/22/20 18:21 Dose: 150 mls/hr Documented by: [id number] Famotidine 20 mg/ Syringe 5 mls @ 2.5 mls/min IV QAM THOMAS Stop: 09/21/20 17:20 Last Admin: 08/22/20 17:57 Dose: 2.5 mls/min Documented by: [id number] Nortriptyline HCl (Nortriptyline Hcl 25 Mg Cap) 25 mg PO HS THOMAS Stop: 09/21/20 20:59 Last Admin: 08/22/20 20:18 Dose: 25 mg Documented by: [id number] Discontinued Medications Albuterol (Albut/Ipratrop 3mg/0.5mg Neb 3 Ml Vial) 3 ml NEB NOW STA Stop: 08/22/20 12:54 Last Admin: 08/22/20 13:05 Dose: 3 ml Documented by: [id number] Hydromorphone HCl (Hydromorphone Inj 0.5 Mg/0.5 Ml Syr) 0.5 mg IV NOW STA Stop: 08/22/20 15:17 Last Admin: 08/22/20 16:05 Dose: 0.5 mg Documented by: [id number] Sodium Chloride (Nss 1000ml) 1,000 mls @ 999 mls/hr IV .Q1H1M ONE Stop: 08/22/20 13:50 Last Infusion: 08/22/20 14:26 Dose: 0 mls/hr Documented by: [id number] Admin: 08/22/20 13:25 Dose: 999 mls/hr Documented by: [id number] Piperacillin Sod/Tazobactam Sod (Zosyn) 4.5 gm in 120 mls @ 240 mls/hr IV NOW ONE Stop: 08/22/20 14:43 Last Admin: 08/22/20 18:11 Dose: Not Given Documented by: [id number] Piperacillin Sod/Tazobactam Sod (Zosyn) 4.5 gm in 120 mls @ 240 mls/hr IV NOW ONE Stop: 08/22/20 15:35 Last Infusion: 08/22/20 18:21 Dose: 0 mls/hr Documented by: [id number] Admin: 08/22/20 17:49 Dose: 240 mls/hr Documented by: [id number] Sodium Chloride (Nss 1000ml) 1,000 mls @ 999 mls/hr IV .Q1H1M ONE Stop: 08/22/20 16:15 Last Admin: 08/22/20 17:52 Dose: Not Given Documented by: [id number] Acetaminophen (Ofirmev) 1,000 mg in 100 mls @ 400 mls/hr IV NOW STA Stop: 08/22/20 15:31 Last Admin: 08/22/20 17:58 Dose: Not Given Documented by: [id number] Medical Decision Making Differential Diagnosis Dehydration, sepsis, Covid, electrolyte or metabolic abnormalities, COPD exacerbation, cardiac disease, neurologic disease/stroke/intracranial process Medical Records Attestation: I reviewed the patient's medical records. Home Medications Current Medication List: was personally reviewed by me Laboratory Data Attestation: I reviewed the patient's lab results. Result diagrams: 08/22/20 12:30 08/22/20 12:50 Lab Results 08/22/20 08/22/20 08/22/20 Range/Units 12:30 12:30 12:30 WBC 12.49 H (4.8-10.8) K/uL RBC 4.62 (4.2-5.4) M/uL Hgb 14.7 (12.0-16.0) g/dL Hct 44.4 (37-47) % MCV 96.1 (80-100) fL MCH 31.8 (25-34) pg MCHC 33.1 (32-36) g/dL RDW Std Deviation 48.6 H (36.4-46.3) fL RDW Coeff of Deana 13.8 (11.5-14.5) % Plt Count 293 (130-400) K/uL MPV 8.8 (7.4-10.4) fL Immature Gran % (Auto) 0.2 % Neut % (Auto) 82.2 % Lymph % (Auto) 10.6 % [place] % (Auto) 6.8 % Eos % (Auto) 0.0 % Baso % (Auto) 0.2 % Neut # (Auto) 10.28 H (1.4-6.5) K/uL Lymph # (Auto) 1.32 (1.2-3.4) K/uL [place] # (Auto) 0.85 H (0.11-0.59) K/uL Eos # (Auto) 0.00 (0-0.5) K/uL Baso # (Auto) 0.02 (0-0.2) K/uL Immature Gran # (Auto) 0.02 (0.00-0.02) K/uL PT 10.0 (9.0-12.0) Seconds INR 1.0 (0.9-1.1) APTT 28.0 (21.0-31.0) Seconds PTT Ratio 1.1 Sodium (136-145) mmol/L Potassium (3.5-5.1) mmol/L Chloride (98-107) mmol/L Carbon Dioxide (21-32) mmol/L Anion Gap (3-11) BUN (7-18) mg/dl Creatinine (0.6-1.2) mg/dl Est Cr Clr Drug Dosing Est GFR ( Amer) Est GFR (Non-Af Amer) BUN/Creatinine Ratio (10-20) Glucose (70-99) mg/dl Lactate (0.4-2.0) mmol/L Calcium (8.5-10.1) mg/dl Magnesium (1.8-2.4) mg/dl Total Bilirubin (0.2-1) mg/dl AST (15-37) U/L ALT (12-78) U/L Alkaline Phosphatase (45-117) U/L Troponin I (0-0.045) ng/ml Total Protein (6.4-8.2) gm/dl Albumin (3.4-5.0) gm/dl Globulin (2.5-4.0) gm/dl Albumin/Globulin Ratio (0.9-2) Procalcitonin 5.76 H (0-0.5) ng/ml 08/22/20 08/22/20 Range/Units 12:50 13:54 WBC (4.8-10.8) K/uL RBC (4.2-5.4) M/uL Hgb (12.0-16.0) g/dL Hct (37-47) % MCV (80-100) fL MCH (25-34) pg MCHC (32-36) g/dL RDW Std Deviation (36.4-46.3) fL RDW Coeff of Deana (11.5-14.5) % Plt Count (130-400) K/uL MPV (7.4-10.4) fL Immature Gran % (Auto) % Neut % (Auto) % Lymph % (Auto) % [place] % (Auto) % Eos % (Auto) % Baso % (Auto) % Neut # (Auto) (1.4-6.5) K/uL Lymph # (Auto) (1.2-3.4) K/uL [place] # (Auto) (0.11-0.59) K/uL Eos # (Auto) (0-0.5) K/uL Baso # (Auto) (0-0.2) K/uL Immature Gran # (Auto) (0.00-0.02) K/uL PT (9.0-12.0) Seconds INR (0.9-1.1) APTT (21.0-31.0) Seconds PTT Ratio Sodium 136 (136-145) mmol/L Potassium 3.1 L (3.5-5.1) mmol/L Chloride 97 L (98-107) mmol/L Carbon Dioxide 28 (21-32) mmol/L Anion Gap 11.0 (3-11) BUN 61 H (7-18) mg/dl Creatinine 2.54 H (0.6-1.2) mg/dl Est Cr Clr Drug Dosing Not Reportable Est GFR ( Amer) 20.7 Est GFR (Non-Af Amer) 17.8 BUN/Creatinine Ratio 23.8 H (10-20) Glucose 144 H (70-99) mg/dl Lactate 2.0 (0.4-2.0) mmol/L Calcium 9.8 (8.5-10.1) mg/dl Magnesium 1.7 L (1.8-2.4) mg/dl Total Bilirubin 1.1 H (0.2-1) mg/dl AST 177 H (15-37) U/L ALT 132 H (12-78) U/L Alkaline Phosphatase 1313 H (45-117) U/L Troponin I 0.018 (0-0.045) ng/ml Total Protein 7.2 (6.4-8.2) gm/dl Albumin 2.7 L (3.4-5.0) gm/dl Globulin 4.5 H (2.5-4.0) gm/dl Albumin/Globulin Ratio 0.6 L (0.9-2) Procalcitonin (0-0.5) ng/ml Imaging Data Attestation: I personally reviewed and interpreted this imaging study as follows: My Impression: Chest x-ray Radiologist's Impression: Chest X-Ray 08/22/20 12:50 XR chest 1V portable HISTORY: 74 years-old Female SEPSIS acute sepsis COMPARISON: Chest radiograph 02/16/2020 TECHNIQUE: Portable AP view of the chest FINDINGS: Cardiomediastinal and hilar silhouettes are within normal limits. Calcified plaque of the thoracic aorta. No pneumothorax, pleural effusion, airspace consolidation or overt pulmonary edema. Degenerative changes of the shoulders and spine. IMPRESSION: No acute process. ACT 112: Negative or not required by law. The above report was generated using voice recognition software. It may contain grammatical, syntax or spelling errors. Electronically signed by: Shayne Mendes M.D. 08/22/2020 1:[address] 08/22/20 12:53 CT head/brain wo con CLINICAL HISTORY: 74 years-old Female with weakness. Acute sepsis with weakness TECHNIQUE: Multiple axial CT images of the head were obtained without contrast. A dose lowering technique was utilized adhering to the principles of ALARA. COMPARISON: None. FINDINGS: No acute intracranial hemorrhage, midline shift, intracranial mass, hydrocephalus, territorial ischemia or abnormal extra-axial collection. Age- related involutional changes. White matter hypodensities suggestive of chronic microvascular ischemic disease. Cerebral vascular calcifications. The calvarium is intact. Prior bilateral lens repair. The paranasal sinuses, mastoid air cells, and middle ear cavities are clear. IMPRESSION: No acute intracranial abnormality. ACT 112: Negative or not required by law. The above report was generated using voice recognition software. It may contain grammatical, syntax or spelling errors. Electronically signed by: Shayne Mendes M.D. 08/22/2020 2:48 PM Abdomen/Pelvis CT 08/22/20 14:19 CT chest diagnostic wo con, CT abd pelvis wo con CT DOSE: 1922.06 mGy.cm CLINICAL HISTORY: 74 years-old Female with hypoxic, shortness of breath, weight loss. Acute chest and abdominal pain with sepsis TECHNIQUE: Multiaxial CT images of the chest, abdomen and pelvis were performed without contrast. A dose lowering technique was utilized adhering to the principles of ALARA. COMPARISON: CTA chest 03/04/2014, MRCP 02/19/2020. FINDINGS: CT CHEST: Multinodular thyroid with numerous peripherally calcified nodules. No adenopathy. Heart is upper limits of normal in size with extensive coronary and thoracic aortic calcifications. No thoracic aortic aneurysm. No pneumothorax, pleural effusion or overt pulmonary edema. Mild bibasilar mucous plugging with bibasilar minimal groundglass right lower lobe tree-in-bud nodules. There are no suspicious pulmonary nodules identified. Unremarkable soft tissues. Degenerative changes of the shoulders and spine. Mild sigmoidal scoliosis of the thoracic spine. CT ABDOMEN/PELVIS: No pneumatosis or pneumoperitoneum. The unenhanced spleen and adrenal glands are unremarkable. Scattered calcifications throughout the pancreas compatible with chronic pancreatitis. Cholecystectomy with intrahepatic and extrahepatic biliary ductal prominence. The common bile duct measures up to 1.2 cm transversely, previously 0.8 cm. No pancreatic ductal dilation. Unremarkable kidneys. No urolith or hydronephrosis. Streak artifact from bilateral hip total joint arthroplasties limits evaluation of the pelvis. The visualized urinary bladder and uterus is unremarkable. Calcified plaque of the abdominal aorta without aneurysm. No adenopathy. Prominent distal esophageal lymph nodes measure up to 9 mm which are nonspecific. There is no bowel obstruction or bowel wall thickening. The appendix is not identified. No ascites or mesenteric inflammation. Unremarkable soft tissues. Degenerative changes of the spine and pelvis. Mid lumbar dextroscoliosis. IMPRESSION: 1. Bibasilar mucous plugging with mild right lower lobe tree-in-bud nodules compatible with an infectious or inflammatory bronchiolitis. 2. No bowel obstruction or bowel wall thickening. 3. No urolith or obstructive uropathy. 4. Cholecystectomy with mild intrahepatic and extrahepatic biliary ductal dilation. This may be on a postsurgical basis however has progressed from 02/19/2020. Correlate with LFTs. 5. Evidence of chronic pancreatitis. 6. Additional findings as above. ACT 112: Negative or not required by law. Electronically signed by: Shayne Mendes M.D. 08/22/2020 3:[address] 08/22/20 14:19 CT chest diagnostic wo con, CT abd pelvis wo con CT DOSE: 1922.06 mGy.cm CLINICAL HISTORY: 74 years-old Female with hypoxic, shortness of breath, weight loss. Acute chest and abdominal pain with sepsis TECHNIQUE: Multiaxial CT images of the chest, abdomen and pelvis were performed without contrast. A dose lowering technique was utilized adhering to the princi ples of SHERON. COMPARISON: CTA chest 03/04/2014, MRCP 02/19/2020. FINDINGS: CT CHEST: Multinodular thyroid with numerous peripherally calcified nodules. No adenopathy. Heart is upper limits of normal in size with extensive coronary and thoracic aortic calcifications. No thoracic aortic aneurysm. No pneumothorax, pleural effusion or overt pulmonary edema. Mild bibasilar mucous plugging with bibasilar minimal groundglass right lower lobe tree-in-bud nodules. There are no suspicious pulmonary nodules identified. Unremarkable soft tissues. Degenerative changes of the shoulders and spine. Mild sigmoidal scoliosis of the thoracic spine. CT ABDOMEN/PELVIS: No pneumatosis or pneumoperitoneum. The unenhanced spleen and adrenal glands are unremarkable. Scattered calcifications throughout the pancreas compatible with chronic pancreatitis. Cholecystectomy with intrahepatic and extrahepatic biliary ductal prominence. The common bile duct measures up to 1.2 cm transversely, previously 0.8 cm. No pancreatic ductal dilation. Unremarkable kidneys. No urolith or hydronephrosis. Streak artifact from bilateral hip total joint arthroplasties limits evaluation of the pelvis. The visualized urinary bladder and uterus is unremarkable. Calcified plaque of the abdominal aorta without aneurysm. No adenopathy. Prominent distal esophageal lymph nodes measure up to 9 mm which are nonspecific. There is no bowel obstruction or bowel wall thickening. The appendix is not identified. No ascites or mesenteric inflammation. Unremarkable soft tissues. Degenerative changes of the spine and pelvis. Mid lumbar dextroscoliosis. IMPRESSION: 1. Bibasilar mucous plugging with mild right lower lobe tree-in-bud nodules compatible with an infectious or inflammatory bronchiolitis. 2. No bowel obstruction or bowel wall thickening. 3. No urolith or obstructive uropathy. 4. Cholecystectomy with mild intrahepatic and extrahepatic biliary ductal dilat ion. This may be on a postsurgical basis however has progressed from 02/19/2020. Correlate with LFTs. 5. Evidence of chronic pancreatitis. 6. Additional findings as above. ACT 112: Negative or not required by law. Electronically signed by: Shayne Mendes M.D. 08/22/2020 3:03 PM ECG Data Attestation: I personally reviewed and interpreted this ECG as follows: Indication: + weakness Rate (beats per minute): 96 Rhythm: + normal sinus ECG Intervals/blocks: + Normal QRS, + Normal QT and + Normal NH ECG [place]: + Left axis deviation ECG ST segments: + Normal ST segments ECG Findings: + Other (Low voltage); no PACs and no PVCs Comparison ECG Date: from (12/12/18) Change: no significant change MDM Narrative This patient comes in as described above. She was placed on a equipment monitor phototypesetting i n room C4. She has been sick and weak for about a month she is not been eating well she does look dehydrated on my exam. She was given a liter IV normal saline bolus she was hypotensive in the field but here initially was 100 systolic. She does not have a significant fever here. A full sepsis type work- up was obtained as well as cardiac work-up and I did do a CT of her head although she has no focal neurologic deficits to suggest stroke. She has more generalized weakness. She did remain stable after receiving IV fluids. Her white count is mildly elevated as is her procalcitonin. Chest x-ray did not appear to be congestive heart failure pneumonia or pneumothorax. Covid testing was negative. Her BUN and creatinine are elevated consistent with dehydration. Her LFTs are also mildly elevated too. I did order IV Zosyn for broad-spectrum antibiotic coverage although at the time did not have any source. I did did consult Dr. Villalta who canceled it until we had a definite source. In the meantime we did order CAT scans of the chest abdomen and head. She has had a previous cholecystectomy but may have some ductal dilatation of her common bile duct. She may also have a bronchitis. Dr. Villalta did see her and will admit her for further inpatient treatment and evaluation Continuous cardiac monitoring: Order was placed in EMR for continuous cardiac monitoring due to her weakness and low blood pressure. Upon my interpretation she was noted to be in normal sinus rhythm with a pulse of 70. Impression & Plan Sepsis, Weakness, COPD (chronic obstructive pulmonary disease), Acute dehydration, Lab test negative for COVID-19 virus Discharge Plan Visit Data Chief Complaint: Weakness Stated Complaint: WEAKNESS, HYPOTENSION ED Provider: Claude Martinez Discharge Problem: Sepsis, Weakness, COPD (chronic obstructive pulmonary disease), Acute dehydration, Lab test negative for COVID-19 virus Patient Disposition: Admitted As Inpatient Discharge Instructions Interventions: ED Discharge Assessment Last Done: 08/22/20 16:00 Discharge Problem: Sepsis Qualifiers: Sepsis type: sepsis due to unspecified organism Sepsis acute organ dysfunction status: unspecified Qualified Code(s): A41.9 - Sepsis, unspecified organism COPD (chronic obstructive pulmonary disease) Qualifiers: COPD type: unspecified COPD Qualified Code(s): J44.9 - Chronic obstructive pulmonary disease, unspecified
[2020-08-22 13:04] LABS: Basophils # (auto) 0.02 K/uL (0-0.2); Basophils % (auto) 0.2 %; Hematocrit (blood only) 44.4 % (37-47); Hemoglobin 14.7 g/dL (12.0-16.0); Immature Granulocytes # (auto) 0.02 K/uL (0.00-0.02); Immature Granulocytes % (auto) 0.2 %; Lymphocytes # (auto) 1.32 K/uL (1.2-3.4); Lymphocytes % (auto) 10.6 %; Mean Corpuscular Hemoglobin 31.8 pg (25-34); Mean Corpuscular Hgb Conc 33.1 g/dL (32-36); Mean Corpuscular Volume 96.1 fL (80-100); Mean Platelet Volume 8.8 fL (7.4-10.4); Monocytes # (auto) 0.85 K/uL (0.11-0.59); Monocytes % (auto) 6.8 %; Neutrophils # (auto) 10.28 K/uL (1.4-6.5); Neutrophils % (auto) 82.2 %; Platelet Count 293 K/uL (130-400); RDW Coefficient of Variation 13.8 % (11.5-14.5); RDW Standard Deviation 48.6 fL (36.4-46.3); Red Blood Count 4.62 M/uL (4.2-5.4); White Blood Count 12.49 K/uL (4.8-10.8)
[2020-08-22 13:10] LABS: Partial Thromboplastin Ratio 1.1
[2020-08-22 13:11] LABS: Alanine Aminotransferase 132 U/L (12-78); Albumin Level 2.7 gm/dl (3.4-5.0); Aspartate Aminotransferase 177 U/L (15-37); BUN Creatinine Ratio 23.8 (10-20); Blood Urea Nitrogen 61 mg/dl (7-18); Calcium 9.8 mg/dl (8.5-10.1); Carbon Dioxide 28 mmol/L (21-32); Chloride 97 mmol/L (98-107); Est GFR (African American) 20.7; Est GFR (Non-African American) 17.8; Glucose 144 mg/dl (70-99); Magnesium 1.7 mg/dl (1.8-2.4); Potassium 3.1 mmol/L (3.5-5.1); Sodium 136 mmol/L (136-145)
--- NOTE | 2020-08-22 13:22 | XRay Report ---
XR chest 1V portable HISTORY: 74 years-old Female SEPSIS acute sepsis COMPARISON: Chest radiograph 02/16/2020 TECHNIQUE: Portable AP view of the chest FINDINGS: Cardiomediastinal and hilar silhouettes are within normal limits. Calcified plaque of the thoracic ao rta. No pneumothorax, pleural effusion, airspace consolidation or overt pulmonary edema. Degenerative changes of the shoulders and spine. IMPRESSION: No acute process. ACT 112: Negative or not required by law. The above report was generated using voice recognition software. It may contain grammatical, syntax o r spelling errors. Electronically signed by: Shayne Mendes M.D. 08/22/2020 1:20 PM
[2020-08-22 13:26] LABS: Albumin Globulin Ratio 0.6 (0.9-2); Alkaline Phosphatase 1313 U/L (45-117); Bilirubin,Total 1.1 mg/dl (0.2-1); Globulin 4.5 gm/dl (2.5-4.0); Total Protein 7.2 gm/dl (6.4-8.2); Troponin I 0.018 ng/ml (0-0.045)
[2020-08-22] MEDS ORDERED: PIPERACILLIN/TAZOBACTAM 4.5 GM/120 ML BAG IV ONE ×2 (14:14→15:06)
[2020-08-22] MEDS ORDERED: PIPERACILL/TAZOBAC CONSULT ACTIVE PRN ×2 (14:14→15:06)
[2020-08-22 14:17] LABS: Influenza A virus by PCR Negative (Neg); Influenza B virus by PCR Negative (Neg); RSV by PCR Negative (Neg); SARS CoV2 RNA(COVID-19) InHosp NEGATIVE (Negative)
--- NOTE | 2020-08-22 14:50 | CT Scan Report ---
CT head/brain wo con CLINICAL HISTORY: 74 years-old Female with weakness. Acute sepsis with weakness TECHNIQUE: Multiple axial CT images of the head were obtained without contrast. A dose lowering tech nique was utilized adhering to the principles of ALARA. COMPARISON: None. FINDINGS: No acute intracranial hemorrhage, midline shift, intracranial mass, hydrocephalus, territorial ischem ia or abnormal extra-axial collection. Age-related involutional changes. White matter hypodensities s uggestive of chronic microvascular ischemic disease. Cerebral vascular calcifications. The calvarium is intact. Prior bilateral lens repair. The paranasal sinuses, mastoid air cells, and m iddle ear cavities are clear. IMPRESSION: No acute intracranial abnormality. ACT 112: Negative or not required by law. The above report was generated using voice recognition software. It may contain grammatical, syntax o r spelling errors. Electronically signed by: Shayne Mendes M.D. 08/22/2020 2:48 PM
--- NOTE | 2020-08-22 14:50 | History & Physical Report ---
Date of Service August 22, 2020 Assessment & Plan (1) Sepsis: Suspected biliary source with elevated LFTs and biliary duct dilatation on CT. UA pending at time of admission Follow-up blood cultures Watson catheter Lactate 2.0, no need to repeat IV fluid resuscitation with 2L NSS bolus, continue NSS+ KCl 30 meq @ 150ml/hr following this Empiric antibiotic coverage with IV Zosyn -notable history of C. difficile colitis and will monitor for watery stools however no colitis noted on noncontrast CT (2) Acute hypotension: Resolved following 1L NSS bolus Hold antihypertensives amlodipine and hydrochlorothiazide. (3) Acute cholangitis: Suspected. Based on sepsis with elevated LFTs and biliary ductal dilatation on CT. Discussed with Dr Hector Mclain and requested MRCP to further evaluate. Keep n.p.o. until MRCP complete. IV Zosyn as above (4) Biliary obstruction: MRCP as above. (5) Elevated liver enzymes: As above. Trend with a.m. labs. (6) Acute kidney injury: Creatinine 2.54 from baseline 0.96. Suspect prerenal due to sepsis as above in the setting of hypotension with hydrochlorothiazide and amlodipine. No obstructive cause found on CT. UA pending at time of admission. (7) Lumbar spinal stenosis: Hold hydrocodone. Will treat pain with Dilaudid and acetaminophen while NPO. (8) Nocturnal hypoxia: Usually on 2 L oxygen at night. Aim O2 sats > 94%. (9) DVT prophylaxis: Heparin 5000 units SQ twice daily Admission and Anticipated Discharge Date Admission Date: August 22, 2020 History of Present Illness Chief Complaint: Generalized illness Primary Care Provider: Sherry Syed MD Dora Kirby is a 74-year-old female who presents to the ER via EMS from home with generalized weakness, ambulatory dysfunction, decreased appetite and poor oral intake. She reports her symptoms have been getting progressively worse for the last month but much worse in the last week with significant weight loss. Last night she fell in her bathroom and her spouse was able to get her back to bed. The patient reports being too weak to get off the toilet yesterday. She denies any chest pain, abdominal pain, fever, chills, urinary Sx, respiratory Sx, nausea, vomiting, constipation, diarrhea, bright red blood in stool or melena. She is chronically on 2L O2 as needed for exertion and at night and has a chronic cough at baseline. On EMS arrival the patient was hypotensive with blood pressure 82/58 with dried stool to bilateral legs. EMS reports poor living conditions. She has a significant history of Klebsiella sepsis due to cholangitis and cholecystitis in January 2020 requiring ERCP with biliary stent insertion and subsequent laparoscopic cholecystectomy. In the ER she was noted to be dehydrated with creatinine 2.54 from baseline 0.96. Given non-focal findings and weight loss over last month I advised ER provider to get CT chest/abdomen/pelvis without contrast to assess for metastatic source with elevated ALP out of proportion to over LFTs and normal lipase concerning for metastatic bone disease. This revealed biliary ductal dilatation and given history of Klebsiella sepsis with cholecystitis this is the most likely source of infection. Scarlet ordered and discussed care with Dr Hector Mclain from gastroenterology who requested MRCP for further evaluation. Allergies Allergy/AdvReac Type Severity Reaction Status Date / Time bacitracin Allergy Unknown EMACERATION Verified 08/22/20 14:42 SKIN AT SITE neomycin Allergy Unknown EMACERATION Verified 08/22/20 14:42 SKIN AT SITE polymyxin B Allergy Unknown EMACERATION Verified 08/22/20 14:42 SKIN AT SITE bupropion AdvReac Severe lips Verified 08/22/20 14:42 swelling Aminoglycosides AdvReac Intermediate SKIN Verified 08/22/20 14:42 IRRITATION Home Medications Medication Instructions Recorded Confirmed Type [place]-3 1 cap PO QAM 09/25/18 08/22/20 History ascorbic acid (vitamin C) 1 g PO QAM 09/25/18 08/22/20 History vitamin E 100 unit capsule 100 units PO QAM 10/02/18 08/22/20 History cholecalciferol (vitamin D3) 25 1,000 units PO QAM #90 cap 04/06/19 08/22/20 History mcg (1,000 unit) capsule gabapentin 300 mg capsule 300 mg PO HS #90 cap 02/02/20 08/22/20 Rx aspirin 81 mg tablet,delayed 81 mg PO UD 02/03/20 08/22/20 History release PreserVision AREDS-2 1 tab PO BID 02/16/20 08/22/20 History atorvastatin 20 mg PO HS 02/16/20 08/22/20 History albuterol sulfate 90 mcg/actuation 2 puff INHALATION Q6H PRN #8.5 g 02/27/20 08/22/20 Rx aerosol inhaler metoprolol succinate 25 mg PO QAM 03/11/20 08/22/20 History garlic 1,000 mg PO PC 04/09/20 08/22/20 History hydrochlorothiazide 25 mg tablet 25 mg PO DAILY #90 tab 04/19/20 08/22/20 Rx nortriptyline 25 mg capsule 25 - 50 mg PO HS #60 cap 05/25/20 08/22/20 Rx amlodipine 5 mg tablet 5 mg PO DAILY #90 tab 06/11/20 08/22/20 Rx umeclidinium 62.5 mcg-vilanterol 1 inh INHALATION DAILY #60 ea 06/15/20 08/22/20 Rx 25 mcg/actuation powdr for inhalation hydrocodone 10 mg-acetaminophen 2 tab PO Q6H PRN 30 Days #240 tab 08/09/20 08/22/20 Rx 325 mg tablet MDD 8 tabs pantoprazole 40 mg tablet,delayed 40 mg PO DAILY #90 tab 08/19/20 08/22/20 Rx release Past Med/Surg History Medical History Cholecystitis with gangrene of gallbladder s/p lap vinh on 02/18/[address] Mcintosh, tolerated well, no complications Chronic obstructive pulmonary disease Chronic osteoarthritis Clostridium difficile diarrhea 2018 DNR (do not resuscitate) Dyslipidemia Elevated troponin Noted in ED on 02/15. Per hospitalist progress note 02/16 (Dr. Lagos) "Most likely in setting of acute illness, sepsis. trop up slightly to 0.1 this is all demand ischemia with acute cholangitis, cholelithiasis" Hepatic steatosis Hyperparathyroidism, primary Hypertension Impaired fasting glucose Leukocytosis Resolved on 02/19 labs Lumbar spinal stenosis Migraine HX Nocturnal hypoxia on nocturnal oxygen therapy-2L/MIN NC HS Nontoxic multinodular goiter Venous insufficiency Surgical History History of appendectomy History of cholecystectomy History of colonoscopy History of hip replacement R/L History of knee replacement RIGHT Family History Daughter Family history of diabetes mellitus Other No pertinent family history Social History Smoking Status: Current every day smoker Age Started Using Tobacco: 18; packs per day: 0.5; Years Smoked: 55; Cigarettes Per Day: 5-10; Second Hand Exposure: No; Do You Dip or Chew Tobacco: No; Tobacco Cessation Education Requested by Patient: No Hx Alcohol Use: No Hx Substance Use: No Preferred Language: [place] Communication Ability: Effective Visual Impairment: No Limitations Allergy Physician Required: No Beliefs That Will Affect Care: None marital status: Current Living Situation: Spouse current occupational status: retired Other Information That Helps Us Care for You: No Feels Safe at Home: Yes Safety Concerns: Feels Safe At This Time Seatbelt Use: always Sunscreen Use: Yes Assistive Devices: Oxygen - Continuous Review of Systems Review of Systems: All systems reviewed & are unremarkable except as noted in HPI & below Physical Exam Constitutional: WD/WN, vitals as above Eyes: + anicteric sclerae; normal pupil size ENMT: Ears: no hearing impairment and no external ear abnormality Nose: no external nose abnormality Mouth: + dry oral mucous membranes Neck: normal visual inspection and trachea midline Respiratory: normal respiratory effort, lungs clear to auscultation Cardiovascular: Rate/Rhythm: regular rhythm and + tachycardic Heart Sounds: no murmur Vessels: no JVD Extremities: normal capillary refill; no calf tenderness and no pedal edema Gastrointestinal (Abdomen): Inspection/Auscultation: abdomen normal to inspection and normal bowel sounds; abdomen not distended Percussion/Palpation: + abdomen tender (RUQ tenderness) and abdomen soft; no guarding and abdomen not rigid Musculoskeletal: no cyanosis or clubbing, extremities motor strength 5/5 Skin: no rashes, warm and dry Neurologic: moves all extremities and awake; no focal motor deficits and not confused Speech / Cognition: normal speech Motor/Sensory: no tremor Psychiatric: A+Ox3, euthymic affect Results & Data Results & Data ([facility]) Vital Signs (Past 12 Hours) Vital Signs Temp Pulse Pulse Resp BP BP Pulse Ox 08/22/20 13:11 86 16 116/68 96 08/22/20 13:05 104 H 16 95 08/22/20 12:26 37.2 C 106 H 23 109/[address] head/brain wo con IMPRESSION: No acute intracranial abnormality. CT chest diagnostic wo con, CT abd pelvis wo con IMPRESSION: 1. Bibasilar mucous plugging with mild right lower lobe tree-in-bud nodules compatible with an infectious or inflammatory bronchiolitis. 2. No bowel obstruction or bowel wall thickening. 3. No urolith or obstructive uropathy. 4. Cholecystectomy with mild intrahepatic and extrahepatic biliary ductal dilation. This may be on a postsurgical basis however has progressed from 02/19/2020. Correlate with LFTs. 5. Evidence of chronic pancreatitis. 6. Additional findings as above. Medications Administered ER medications given: NSS 1L bolus DuoNeb 3 mL nebulizer ECG Indication: abdominal pain and altered mental status Rate (beats per minute): 96 Rhythm: normal sinus Findings: + left axis deviation; no acute ischemic change Comparison ECG Date: from (February 16, 2020) Change: the following changes noted (PVCs no longer present) Code Status & VTE Plan Code Status DNR/DNI VTE Prophylaxis Plan VTE Prophylaxis will be ordered: Yes PG Care Time/CCT Total # of Minutes Spent Total Time Spent with Patient: Total time spent is greater than 50% in coordination of care (as documented) at patient's floor/unit and/or counseling patient: Coding Level of Care Code 92031 Initial Inpt Care Lvl 3 Diagnoses Sepsis A41.9; R65.20; N17.9 Acute renal failure type: unspecified Sepsis acute organ dysfunction status: with acute organ dysfunction Sepsis type: sepsis due to unspecified organism Severe sepsis acute organ dysfunction type: acute renal failure Severe sepsis shock status: without septic shock Acute hypotension I95.9 Acute cholangitis K83.09 Biliary obstruction K83.1 Elevated liver enzymes R74.8 Acute kidney injury N17.9 Lumbar spinal stenosis M48.061 Nocturnal hypoxia G47.34 DVT prophylaxis Z29.9 (1) Sepsis Acute renal failure type: unspecified Sepsis acute organ dysfunction status: with acute organ dysfunction Sepsis type: sepsis due to unspecified organism Severe sepsis acute organ dysfunction type: acute renal failure Severe sepsis shock status: without septic shock Qualified Code(s): A41.9 - Sepsis, unspecified organism; R65.20 - Severe sepsis without septic shock; N17.9 - Acute kidney failure, unspecified
--- NOTE | 2020-08-22 15:05 | CT Scan Report ---
CT chest diagnostic wo con, CT abd pelvis wo con CT DOSE: 1922.06 mGy.cm CLINICAL HISTORY: 74 years-old Female with hypoxic, shortness of breath, weight loss. Acute chest an d abdominal pain with sepsis TECHNIQUE: Multiaxial CT images of the chest, abdomen and pelvis were performed without contrast. A dose lowering technique was utilized adhering to the principles of ALARA. COMPARISON: CTA chest 03/04/2014, MRCP 02/19/2020. FINDINGS: CT CHEST: Multinodular thyroid with numerous peripherally calcified nodules. No adenopathy. Heart is upper limi ts of normal in size with extensive coronary and thoracic aortic calcifications. No thoracic aortic a neurysm. No pneumothorax, pleural effusion or overt pulmonary edema. Mild bibasilar mucous plugging w ith bibasilar minimal groundglass right lower lobe tree-in-bud nodules. There are no suspicious pulmo nary nodules identified. Unremarkable soft tissues. Degenerative changes of the shoulders and spine. Mild sigmoidal scoliosis of the thoracic spine. CT ABDOMEN/PELVIS: No pneumatosis or pneumoperitoneum. The unenhanced spleen and adrenal glands are unremarkable. Scatte red calcifications throughout the pancreas compatible with chronic pancreatitis. Cholecystectomy with intrahepatic and extrahepatic biliary ductal prominence. The common bile duct measures up to 1.2 cm transversely, previously 0.8 cm. No pancreatic ductal dilation. Unremarkable kidneys. No urolith or hydronephrosis. Streak artifact from bilateral hip total joint ar throplasties limits evaluation of the pelvis. The visualized urinary bladder and uterus is unremarkab le. Calcified plaque of the abdominal aorta without aneurysm. No adenopathy. Prominent distal esophageal lymph nodes measure up to 9 mm which are nonspecific. There is no bowel o bstruction or bowel wall thickening. The appendix is not identified. No ascites or mesenteric inflamm ation. Unremarkable soft tissues. Degenerative changes of the spine and pelvis. Mid lumbar dextroscol iosis. IMPRESSION: 1. Bibasilar mucous plugging with mild right lower lobe tree-in-bud nodules compatible with an infect ious or inflammatory bronchiolitis. 2. No bowel obstruction or bowel wall thickening. 3. No urolith or obstructive uropathy. 4. Cholecystectomy with mild intrahepatic and extrahepatic biliary ductal dilation. This may be on a postsurgical basis however has progressed from 02/19/2020. Correlate with LFTs. 5. Evidence of chronic pancreatitis. 6. Additional findings as above. ACT 112: Negative or not required by law. Electronically signed by: Shayne Mendes M.D. 08/22/2020 3:03 PM
[2020-08-22] MEDS ORDERED: HYDROmorphone INJ 0.5 MG/0.5 ML SYR IV STA (15:16)
[2020-08-22] MEDS ORDERED: ACETAMINOPHEN 1,000 MG/100 ML VIAL IV STA (15:17)
[2020-08-22 16:26] LABS: Appearance Urine Clear (Clear); Bacteria Urine Automated Negative (Negative); Bilirubin Urine Negative (Negative); Blood Urine Negative (Negative); Color Urine Dark Yellow; Epithelial Cell Urine Auto 20-30 /lpf (0-5); Glucose Urine UA Negative (Negative); Ketones Urine Trace (Negative); Leukocyte Esterase Urine Negative (Negative); Nitrite Urine Negative (Negative); Protein Urine 1+ (Negative); Specific Gravity Urine 1.019 (1.000-1.030); Urobilinogen Urine Negative (Negative)
[2020-08-22] MEDS ORDERED: ACETAMINOPHEN 1,000 MG/100 ML VIAL IV PRN (17:21)
[2020-08-22] MEDS ORDERED: ONDANSETRON INJ 2 MG/ML 2 ML VIAL IV PRN (17:21)
--- NOTE | 2020-08-22 17:36 | Magnetic Resonance Report ---
MR MRCP HISTORY: 74 years-old Female biliary ductal dilatation, assess for obstruction acute generalized wea kness with decreased appetite. Biliary ductal dilation described on CT abdomen and pelvis of same day COMPARISON: CT abdomen and pelvis of same day, MRCP 02/19/2020 TECHNIQUE: MRCP was obtained without the use of IV contrast. FINDINGS: Front Desk Admin localizer images demonstrate no gross abnormality. Motion degraded exam Cholecystectomy. There are numerous filling defects present within the dependent cystic duct, common hepatic and common bile ducts. The common bile duct is dilated measuring up to 12 mm transversely, pr eviously 8 mm. Mild to moderate intrahepatic biliary ductal dilation. 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 No pancreati c ductal dilation. No pancreatic divisum. Mild generalized pancreatic atrophy. Solid abdominal organs are unremarkable. No ascites or bowel dilation. IMPRESSION: 1. Prior cholecystectomy. There are numerous filling defects in the extrahepatic biliary tree with re sultant intrahepatic and extrahepatic biliary ductal dilation. Findings are suggestive of choledochol ithiasis versus hemobilia. 2. Numerous subcentimeter tiny cystic foci of the pancreas redemonstrated suggestive of sidebranch IP MN's. 3. No pancreatic ductal dilation. ACT 112: Negative or not required by law. The above report was generated using voice recognition software. It may contain grammatical, syntax o r spelling errors. Electronically signed by: Shayne Mendes M.D. 08/22/2020 5:34 PM
[2020-08-22] MEDS: HYDROmorphone INJ 0.5 MG/0.5 ML SYR IV PRN ×2 (17:55→21:07)
[2020-08-22] MEDS: FAMOTIDINE 20 MG in SYRINGE 3 ML IV SCH (17:57)
[2020-08-22] MEDS: POTASSIUM CHLORIDE 30 MEQ in SODIUM CHLORIDE 0.9% 1000ML 1,000 ML IV SCH (18:21)
[2020-08-22] MEDS: ATORVASTATIN 20 MG TAB PO SCH (20:18)
[2020-08-22] MEDS: NORTRIPTYLINE HCL 25 MG CAP PO SCH (20:18)
[2020-08-22] MEDS: GABAPENTIN 300 MG CAP PO SCH (20:18)
[2020-08-22] MEDS ORDERED: HEPARIN SOD 5,000 UNIT/0.5 ML VIAL SQ SCH (21:00)
[2020-08-22] MEDS ORDERED: NON-FORMULARY MEDICATION (Vit C,E-Zn-Coppr-Lutein-Zeaxan [Preservision Areds-2] 250-200-40 PO SCH (21:00)
--- NOTE | 2020-08-22 22:59 | Electrocardiogram Report ---
Test Reason : Blood Pressure : / mmHG Vent. Rate : 096 BPM Atrial Rate : 096 BPM P-R Int : 184 ms QRS Dur : 100 ms QT Int : 380 ms P-R-T Axes : 058 -52 081 degrees QTc Int : 480 ms Normal sinus rhythm Left axis deviation Low voltage QRS Inferior infarct (cited on or before 25-SEP-2018) Cannot rule out Anterior infarct , age undetermined Abnormal ECG When compared with ECG of 16-FEB-2020 23:31, Premature ventricular complexes are no longer Present Confirmed by Musa Choi ([id number]) on 08/22/2020 10:59:27 PM Referred By: Confirmed By:Musa Choi
[2020-08-23] MEDS: POTASSIUM CHLORIDE 30 MEQ in SODIUM CHLORIDE 0.9% 1000ML 1,000 ML IV SCH ×3 (01:00→20:59)
[2020-08-23] MEDS ORDERED: PIPERACILLIN/TAZOBACTAM 3.375 GM in DEXTROSE 5% 100 ML IV SCH (02:00)
[2020-08-23] MEDS: HYDROmorphone INJ 0.5 MG/0.5 ML SYR IV PRN ×4 (02:17→17:42)
[2020-08-23 07:10] LABS: Basophils # (auto) 0.04 K/uL (0-0.2); Basophils % (auto) 0.4 %; Eosinophils # (auto) 0.06 K/uL (0-0.5); Eosinophils % (auto) 0.7 %; Hematocrit (blood only) 37.5 % (37-47); Hemoglobin 12.3 g/dL (12.0-16.0); Immature Granulocytes # (auto) 0.01 K/uL (0.00-0.02); Immature Granulocytes % (auto) 0.1 %; Lymphocytes # (auto) 1.27 K/uL (1.2-3.4); Lymphocytes % (auto) 13.8 %; Mean Corpuscular Hemoglobin 31.8 pg (25-34); Mean Corpuscular Hgb Conc 32.8 g/dL (32-36); Mean Corpuscular Volume 96.9 fL (80-100); Mean Platelet Volume 8.3 fL (7.4-10.4); Monocytes # (auto) 0.61 K/uL (0.11-0.59); Monocytes % (auto) 6.6 %; Neutrophils # (auto) 7.24 K/uL (1.4-6.5); Neutrophils % (auto) 78.4 %; Platelet Count 243 K/uL (130-400); RDW Standard Deviation 49.4 fL (36.4-46.3); Red Blood Count 3.87 M/uL (4.2-5.4); White Blood Count 9.23 K/uL (4.8-10.8)
[2020-08-23 07:45] LABS: Albumin Level 2.1 gm/dl (3.4-5.0); BUN Creatinine Ratio 25.9 (10-20); Calcium 8.8 mg/dl (8.5-10.1); Creatinine Clr Calc Pharmacy 25.8 ml/min; Est GFR (African American) 31.1; Est GFR (Non-African American) 26.9; Potassium 4.6 mmol/L (3.5-5.1)
[2020-08-23 07:48] LABS: Albumin Globulin Ratio 0.6 (0.9-2); Bilirubin,Total 0.9 mg/dl (0.2-1); Globulin 3.5 gm/dl (2.5-4.0); Total Protein 5.6 gm/dl (6.4-8.2)
[2020-08-23] MEDS: FAMOTIDINE 20 MG in SYRINGE 3 ML IV SCH (08:15)
[2020-08-23] MEDS: UMECLIDINIUM/VILANTEROL 62.5/25MCG 7 PUFFS/INHALER INH SCH (08:17)
[2020-08-23] MEDS: METOPROLOL SUCC 25MG EXT REL TAB PO SCH (08:19)
--- NOTE | 2020-08-23 08:25 | Hospitalist Progress Note ---
Date of Service August 23, 2020 Assessment & Plan (1) Sepsis: Suspected biliary source with elevated LFTs and biliary duct dilatation on CT. ERCP scheduled for 08/23/2020 blood cultures currently negative Watson catheter Lactate 2.0, no need to repeat IV fluid resuscitation with 2L NSS bolus, continue NSS+ KCl 30 meq @ 150ml/hr following this Empiric antibiotic coverage with IV Zosyn -notable history of C. difficile colitis (no colonic inflammation seen on CT scan abdomen pelvis) (2) Acute hypotension: Resolved following 1L NSS bolus Hold antihypertensives amlodipine and hydrochlorothiazide. (3) Acute cholangitis: Suspected. Based on sepsis with elevated LFTs and biliary ductal dilatation on CT. Discussed with [facility] GI medicine on admission, now MRCP suggests choledolcolithiasis and for ERCP 08/23/20 IV Zosyn as above (4) Biliary obstruction: MRCP IMPRESSION: 1. Prior cholecystectomy. There are numerous filling defects in the extrahepatic biliary tree with resultant intrahepatic and extrahepatic biliary ductal dilation. Findings are suggestive of choledocholithiasis versus hemobilia. 2. Numerous subcentimeter tiny cystic foci of the pancreas redemonstrated suggestive of sidebranch IPMN's. 3. No pancreatic ductal dilation (5) Elevated liver enzymes: As above. Trend with a.m. labs. (6) Acute kidney injury: Creatinine 2.54 from baseline 0.96. Suspect prerenal due to sepsis as above in the setting of hypotension with hydrochlorothiazide and amlodipine. No obstructive cause found on CT. (7) Lumbar spinal stenosis: Hold hydrocodone. iv Dilaudid and acetaminophen while NPO. (8) Nocturnal hypoxia: Usually on 2 L oxygen at night. Aim O2 sats > 94%. (9) DVT prophylaxis: Heparin 5000 units SQ twice daily Admission and Anticipated Discharge Date Admission Date: August 22, 2020 Subjective Patient was seen prior to her ERCP. She still having some minor right upper quadrant pain with the left upper quadrant pain. She is continued on Zosyn therapy her acute kidney injury has improved somewhat white blood cell count is stable at 9000 plan for ERCP to remove biliary sludge from common bile duct. Review of Systems Review of Systems: Mild distress and fatigue no headache, blurry or double vision no speech or swallowing issues no chest pain, pressure or palpitations no shortness of breath, cough or wheezes Minor right upper quadrant abdominal pain, without associated nausea or vomiting, no complaints of diarrhea no dysuria, hematuria or frequency no focal joint pain or swelling Persisting chronic daily back pain, CVA tenderness or radicular pain no bruising, bleeding or rashes no focal signs of weakness or numbness or altered sensation no complaints of anxiety or depression.. Physical Exam Physical Exam: The patient appeared well nourished and normally developed. Vital signs as documented. Head exam is normocephalic atraumatic no scleral icterus Neck is without JVD, thyromegaly, or carotid bruits. Lungs are clear to auscultation, no focal loss of breath sounds Cardiac exam, Rhythm is regular.. No murmurs, rubs or gallops. Abdominal exam reveals normal bowel sounds, no murmur quadrant tenderness no rebound no guarding Extremities are nonedematous and both pedal pulses are present Neurologic exam is alert and oriented, no focal loss of strength or sensation Skin is without bruises or rashes there is no jaundice Psychologically is without concerns for anxiety or depression Results & Data Results & Data ([facility]) Vital Signs (Past 12 Hours) Vital Signs Temp Pulse Pulse Resp BP BP Pulse Ox 08/23/20 07:35 98.1 F 76 19 101/63 94 08/23/20 03:03 97.9 F 69 20 94/62 L 95 08/23/20 02:14 109/70 08/23/20 00:00 76 08/22/20 23:50 93/59 L 98/63 L 08/22/20 23:09 98.8 F 78 22 84/47 L 96 08/22/20 20:33 99.3 F 71 23 120/73 97 PG Care Time/CCT Total # of Minutes Spent Total Time Spent with Patient: Total time spent is greater than 50% in coordination of care (as documented) at patient's floor/unit and/or counseling patient: Coding Level of Care Code 04486 Subseq Hosp Care Lvl 3 Diagnoses Sepsis A41.9; R65.20; N17.9 Acute renal failure type: unspecified Sepsis acute organ dysfunction status: with acute organ dysfunction Sepsis type: sepsis due to unspecified organism Severe sepsis acute organ dysfunction type: acute renal failure Severe sepsis shock status: without septic shock Acute hypotension I95.9 Acute cholangitis K83.09 Biliary obstruction K83.1 Elevated liver enzymes R74.8 Acute kidney injury N17.9 Lumbar spinal stenosis M48.061 Nocturnal hypoxia G47.34 DVT prophylaxis Z29.9 (1) Sepsis Acute renal failure type: unspecified Sepsis acute organ dysfunction status: with acute organ dysfunction Sepsis type: sepsis due to unspecified organism Severe sepsis acute organ dysfunction type: acute renal failure Severe sepsis shock status: without septic shock Qualified Code(s): A41.9 - Sepsis, unspecified organism; R65.20 - Severe sepsis without septic shock; N17.9 - Acute kidney failure, unspecified
[2020-08-23] MEDS ORDERED: PANTOprazole 40 MG TAB PO SCH (09:00)
--- NOTE | 2020-08-23 10:08 | Gastrointestinal Consultation ---
Date of Consultation August 23, 2020 Assessment & Plan (1) Acute cholangitis: As evidenced by choledocholithiasis, elevated WBC and LFTs, weakness. Plan is for ERCP this afternoon by Dr. Couch. Continue Zosyn. Please optimized respiratory status with breathing tx etc prior to procedure Further recommendations to follow ERCP. Present on Admission?: Yes Supervising Physician Co-Signing Physician Notes I performed a history and physical examination of the patient today, including specifically on physical exam - soft abdomen. I have discussed the patient's management with the advanced practitioner. Please refer to the nurse practitioner's note for the documented findings and plan of care. EUS/ERCP today History of Present Illness Reason for Consultation: Biliary ductal dilatation, acute cholangitis Requesting Physician: Dr. Mcginnis Attending Physician: Demond Mcginnis MD History of Present Illness Ms. Dora Kirby is a 74 yr old female pt of Dr. Sherry Syed with a hx of COPD and wears 2 L of oxygen prn at home, GERD, HTN, Osteoporosis, Migraines who fell in her home and was brought to the ED yesterday. She had also reported generalized weakness and poor appetite for the past month and experienced an unintentional 30 lbs weight loss during that time. On arrival, CT is suggestive of choledocholithiasis and there is an elevated WBC on arrival of 12 ->10 today on Zosyn. LFTs are elevated: T Bili 1.1->0.9; AST 177->93, ALT 132->82, Alk Phos 1313->911. She carries hx of ERCP for choledocholithiasis and Lap Cholecystectomy in Jan 2020. She has had very dark urine for a few weeks despite an adequate water intake. She denies any nausea, vomiting, fevers, light colored BMs or yellow eyes/skin. She does recall a high fever and vomiting after her 2nd COVID vaccine but that was in May. She denies any prior abd pain but is tender in the epigastric and RUQ on exam. She is awake, alert, oriented, uncomfortable with chronic back pain but denies any CP. She has a chronic cough, not worsened. She is NPO and agrees for plan for ERCP this afternoon. Allergies Allergy/AdvReac Type Severity Reaction Status Date / Time bacitracin Allergy Unknown EMACERATION Verified 08/22/20 14:42 SKIN AT SITE neomycin Allergy Unknown EMACERATION Verified 08/22/20 14:42 SKIN AT SITE polymyxin B Allergy Unknown EMACERATION Verified 08/22/20 14:42 SKIN AT SITE bupropion AdvReac Severe lips Verified 08/22/20 14:42 swelling Aminoglycosides AdvReac Intermediate SKIN Verified 08/22/20 14:42 IRRITATION Home Medications Medication Instructions Recorded Confirmed Type [place]-3 1 cap PO QAM 09/25/18 08/22/20 History ascorbic acid (vitamin C) 1 g PO QAM 09/25/18 08/22/20 History vitamin E 100 unit capsule 100 units PO QAM 10/02/18 08/22/20 History cholecalciferol (vitamin D3) 25 1,000 units PO QAM #90 cap 04/06/19 08/22/20 History mcg (1,000 unit) capsule gabapentin 300 mg capsule 300 mg PO HS #90 cap 02/02/20 08/22/20 Rx aspirin 81 mg tablet,delayed 81 mg PO UD 02/03/20 08/22/20 History release PreserVision AREDS-2 1 tab PO BID 02/16/20 08/22/20 History atorvastatin 20 mg PO HS 02/16/20 08/22/20 History albuterol sulfate 90 mcg/actuation 2 puff INHALATION Q6H PRN #8.5 g 02/27/20 08/22/20 Rx aerosol inhaler metoprolol succinate 25 mg PO QAM 03/11/20 08/22/20 History garlic 1,000 mg PO PC 04/09/20 08/22/20 History hydrochlorothiazide 25 mg tablet 25 mg PO DAILY #90 tab 04/19/20 08/22/20 Rx nortriptyline 25 mg capsule 25 - 50 mg PO HS #60 cap 05/25/20 08/22/20 Rx amlodipine 5 mg tablet 5 mg PO DAILY #90 tab 06/11/20 08/22/20 Rx umeclidinium 62.5 mcg-vilanterol 1 inh INHALATION DAILY #60 ea 06/15/20 08/22/20 Rx 25 mcg/actuation powdr for inhalation hydrocodone 10 mg-acetaminophen 2 tab PO Q6H PRN 30 Days #240 tab 08/09/20 08/22/20 Rx 325 mg tablet MDD 8 tabs pantoprazole 40 mg tablet,delayed 40 mg PO DAILY #90 tab 08/19/20 08/22/20 Rx release Patient History Medical History Cholecystitis with gangrene of gallbladder s/p lap vinh on 02/18/[address] Mcintosh, tolerated well, no complications Chronic obstructive pulmonary disease Chronic osteoarthritis Clostridium difficile diarrhea 2018 DNR (do not resuscitate) Dyslipidemia Elevated troponin Noted in ED on 02/15. Per hospitalist progress note 02/16 (Dr. Lagos) "Most likely in setting of acute illness, sepsis. trop up slightly to 0.1 this is all demand ischemia with acute cholangitis, cholelithiasis" Hepatic steatosis Hyperparathyroidism, primary Hypertension Impaired fasting glucose Leukocytosis Resolved on 02/19 labs Lumbar spinal stenosis Migraine HX Nocturnal hypoxia on nocturnal oxygen therapy-2L/MIN NC HS Nontoxic multinodular goiter Venous insufficiency Surgical History History of appendectomy History of cholecystectomy History of colonoscopy History of hip replacement R/L History of knee replacement RIGHT Family History Daughter Family history of diabetes mellitus Other No pertinent family history Social History Smoking Status: Current every day smoker Age Started Using Tobacco: 18; packs per day: 0.5; Years Smoked: 55; Cigarettes Per Day: 5-10; Second Hand Exposure: No; Do You Dip or Chew Tobacco: No; Tobacco Cessation Education Requested by Patient: No Hx Alcohol Use: No Hx Substance Use: No Preferred Language: Northern Irish Communication Ability: Effective Visual Impairment: No Limitations Side Trimmer Required: No Beliefs That Will Affect Care: None marital status: Current Living Situation: Spouse current occupational status: retired Other Information That Helps Us Care for You: No Feels Safe at Home: Yes Safety Concerns: Feels Safe At This Time Seatbelt Use: always Sunscreen Use: Yes Assistive Devices: Oxygen - Continuous Review of Systems Review of Systems: ROS: Gen: + weakness and weight loss Eyes: No eye redness, or pain, no recent vision changes Resp: N+ chronic but not worsening SOB and cough Cardio: No palpitations/irregular beats, no chest pain GI: No abdominal pain, no nausea/vomiting : Denies pain on urination Skin: No jaundice, itching or new rashes Physical Exam Constitutional: WD/WN, vitals as above + ill appearing and + thin Eyes: PERRL, conjunctivae normal, anicteric sclerae Neck: trachea midline, no thyromegaly Respiratory: + cough Auscultation: + crackles (few at both bases) and + wheezes (moderate, throughout) Puls Ox at 94% on 2L O2 by NC. Cardiovascular: RRR, no murmur, no edema Gastrointestinal (Abdomen): Inspection/Auscultation: + hypoactive bowel sounds; abdomen not distended Percussion/Palpation: + abdomen tender (epigastric and RUQ) and abdomen soft Musculoskeletal: generalized weakness but no focal weakness Skin: no rashes, warm and dry Neurologic: PERRL, EOMI, accommodation nl, no face palsy, no dysarthria Psychiatric: A+Ox3, euthymic affect Lymphatic: no cervical or axillary lymphadenopathy Results & Data ([facility]) Vital Signs (Past 12 Hours) Vital Signs Temp Pulse Pulse Resp BP BP Pulse Ox 08/23/20 09:28 64 08/23/20 07:35 36.7 C 76 19 101/63 94 08/23/20 03:03 36.6 C 69 20 94/62 L 95 08/23/20 02:14 109/70 08/23/20 00:00 76 08/22/20 23:50 93/59 L 98/63 L 08/22/20 23:09 37.1 C 78 22 84/47 L 96 Laboratory Results WBC 9.2, Hb 12.3, Hct 37, Plats 245, Na 140, K 4.6, BUN 47, Cr 1.8, Glucose 84. T Bili 0.9, AST 93, ALT 82, Alk Phos 911. Diagnostic Findings MRCP 08/22/20: 1. Prior cholecystectomy. There are numerous filling defects in the extrahepatic biliary tree with resultant intrahepatic and extrahepatic biliary ductal dilation. Findings are suggestive of choledocholithiasis versus hemobilia. 2. Numerous subcentimeter tiny cystic foci of the pancreas re-demonstrated suggestive of side branch IPMN's. 3. No pancreatic ductal dilation. CT abd/pelvis (non contrast) 08/22/20: 1. Bibasilar mucous plugging with mild right lower lobe tree-in-bud nodules compatible with an infectious or inflammatory bronchiolitis. 2. No bowel obstruction or bowel wall thickening. 3. No urolith or obstructive uropathy. 4. Cholecystectomy with mild intrahepatic and extrahepatic biliary ductal dilation. This may be on a postsurgical basis however has progressed from 02/19/2020. Correlate with LFTs. 5. Evidence of chronic pancreatitis. 6. Additional findings as above. CT Chest 08/22/20: 1. Bibasilar mucous plugging with mild right lower lobe tree-in-bud nodules compatible with an infectious or inflammatory bronchiolitis. 2. No bowel obstruction or bowel wall thickening. 3. No urolith or obstructive uropathy. 4. Cholecystectomy with mild intrahepatic and extrahepatic biliary ductal dilation. This may be on a postsurgical basis however has progressed from 02/19/2020. Correlate with LFTs. 5. Evidence of chronic pancreatitis. 6. Additional findings as above. CXR 08/22/20: Cardiomediastinal and hilar silhouettes are within normal limits. Calcified plaque of the thoracic aorta. No pneumothorax, pleural effusion, airspace consolidation or overt pulmonary edema. Degenerative changes of the shoulders and spine. IMPRESSION: No acute process.
[2020-08-23] MEDS: SACCHAROMYCES BOULARDII 250 MG CAP PO SCH (11:19)
[2020-08-23] MEDS: PIPERACILLIN/TAZOBACTAM 3.375 GM in DEXTROSE 5% 100 ML IV SCH ×2 (11:19→18:51)
[2020-08-23] MEDS ORDERED: ALBUT/IPRATROP 3MG/0.5MG NEB 3 ML VIAL NEB STA (13:35)
[2020-08-23] MEDS ORDERED: ALBUT/IPRATROP 3MG/0.5MG NEB 3 ML VIAL NEB PRN (13:35)
--- NOTE | 2020-08-23 14:01 | History & Physical Bridge Note ---
Date of Service August 23, 2020 History & Physical Bridge Note I have examined the patient, reviewed the History & Physical and in the interval since the performance of the History & Physical I have noted the following changes of clinical significance: no changes noted EUS / ERCP today
[2020-08-23] MEDS ORDERED: ONDANSETRON INJ 2 MG/ML 2 ML VIAL ONE (14:04)
[2020-08-23] MEDS ORDERED: PROPOFOL IV EMULSION 10 MG/ML 20 ML VIAL IV ONE (14:04)
[2020-08-23] MEDS ORDERED: LIDOCAINE HCL 2% 2 ML VIAL/AMP(20MG/ML) INFIL ONE (14:04)
[2020-08-23] MEDS ORDERED: ROCURONIUM BROMIDE 10 MG/ML 5 ML VIAL IV ONE ×2 (14:04→14:07)
[2020-08-23] MEDS ORDERED: fentaNYL citrate 100 MCG/2 ML VIAL ONE (14:05)
[2020-08-23] MEDS ORDERED: ATROPINE SULFATE 0.1 MG/ML 10ML SYR IV PRN (14:27)
[2020-08-23] MEDS ORDERED: ALBUTEROL 0.083% NEBU SOLN 3 ML VIAL INH PRN (14:27)
[2020-08-23] MEDS ORDERED: ONDANSETRON INJ 2 MG/ML 2 ML VIAL IV PRN (14:27)
[2020-08-23] MEDS ORDERED: fentaNYL citrate 100 MCG/2 ML VIAL IV PRN (14:27)
--- NOTE | 2020-08-23 14:27 | Anesthesiology Consultation ---
Date of Service August 23, 2020 Assessment & Plan (1) Encounter for pre-operative examination: Chart Review Chart Review: Acceptable Risk for Surgery History Surgery Operation Date: 08/23/20 08:00 Proposed Procedures p Endoscopic Retrograde Cholangiopancreatogram - Casey Couch MD Height/Weight Height: 5 ft 4 in Weight: 70 kg Allergies Allergy/AdvReac Type Severity Reaction Status Date / Time bacitracin Allergy Unknown EMACERATION Verified 08/22/20 14:42 SKIN AT SITE neomycin Allergy Unknown EMACERATION Verified 08/22/20 14:42 SKIN AT SITE polymyxin B Allergy Unknown EMACERATION Verified 08/22/20 14:42 SKIN AT SITE bupropion AdvReac Severe lips Verified 08/22/20 14:42 swelling Aminoglycosides AdvReac Intermediate SKIN Verified 08/22/20 14:42 IRRITATION Medications Home Medications Medication Instructions Recorded Confirmed Last Taken [place]-3 1 cap PO QAM 09/25/18 08/22/20 2 Weeks Ago ~03/26/20 ascorbic acid (vitamin C) 1 g PO QAM 09/25/18 08/22/20 04/08/20 10:00 vitamin E 100 unit capsule 100 units PO QAM 10/02/18 08/22/20 2 Weeks Ago ~03/26/20 cholecalciferol (vitamin D3) 25 1,000 units PO QAM #90 cap 04/06/19 08/22/20 04/08/20 10:00 mcg (1,000 unit) capsule gabapentin 300 mg capsule 300 mg PO HS #90 cap 02/02/20 08/22/20 04/08/20 20:30 aspirin 81 mg tablet,delayed 81 mg PO UD 02/03/20 08/22/20 2 Weeks Ago release ~03/26/20 PreserVision AREDS-2 1 tab PO BID 02/16/20 08/22/20 04/08/20 20:30 atorvastatin 20 mg PO HS 02/16/20 08/22/20 04/08/20 20:30 albuterol sulfate 90 mcg/actuation 2 puff INHALATION Q6H PRN #8.5 g 02/27/20 08/22/20 3 Weeks Ago aerosol inhaler ~03/19/20 metoprolol succinate 25 mg PO QAM 11/19/20 05/02/21 12/18/20 07:40 garlic 1,000 mg PO PC 04/09/20 08/22/20 04/08/20 10:00 hydrochlorothiazide 25 mg tablet 25 mg PO DAILY #90 tab 04/19/20 08/22/20 Unknown nortriptyline 25 mg capsule 25 - 50 mg PO HS #60 cap 05/25/20 08/22/20 Unknown amlodipine 5 mg tablet 5 mg PO DAILY #90 tab 06/11/20 08/22/20 Unknown umeclidinium 62.5 mcg-vilanterol 1 inh INHALATION DAILY #60 ea 06/15/20 08/22/20 Unknown 25 mcg/actuation powdr for inhalation hydrocodone 10 mg-acetaminophen 2 tab PO Q6H PRN 30 Days #240 tab 08/09/20 08/22/20 Unknown 325 mg tablet MDD 8 tabs pantoprazole 40 mg tablet,delayed 40 mg PO DAILY #90 tab 08/19/20 08/22/20 Unknown release Active Medications Generic Name Dose Route Start Last Admin Trade Name Freq PRN Reason Stop Dose Admin Atorvastatin Calcium 20 mg 08/22/20 21:00 08/22/20 20:18 Atorvastatin 20 Mg Tab PO 09/21/20 20:59 20 mg HS THOMAS Administration Gabapentin 300 mg 08/22/20 21:00 08/22/20 20:18 Gabapentin 300 Mg Cap PO 09/21/20 20:59 300 mg HS THOMAS Administration Hydromorphone HCl 0.5 mg 08/22/20 17:21 08/23/20 11:20 Hydromorphone Inj 0.5 Mg/0.5 Ml Syr IV 09/05/20 17:20 0.5 mg Q2H PRN Administration severe Pain Potassium Chloride 30 meq/ 1,015 mls @ 150 mls/hr 08/22/20 17:45 08/23/20 08:13 Sodium Chloride IV 09/21/20 17:44 150 mls/hr .Q6H46M THOMAS Administration Acetaminophen 1,000 mg in 100 mls @ 400 mls/hr 08/22/20 17:21 08/23/20 04:58 Ofirmev IV 08/25/20 17:20 Infused Q8H PRN Infusion Pain or fever Famotidine 20 mg/ Syringe 5 mls @ 2.5 mls/min 08/22/20 17:21 08/23/20 08:15 IV 09/21/20 17:20 2.5 mls/min QAM THOMAS Administration Piperacillin Sod/Tazobactam 115 mls @ 28.75 mls/hr 08/23/20 10:00 08/23/20 11:19 Sod 3.375 gm/ Dextrose IV 09/02/20 01:59 28.8 mls/hr Q8H THOMAS Administration Protocol Metoprolol Succinate 25 mg 08/23/20 09:00 08/23/20 08:19 Metoprolol Succ 25mg Ext Rel Tab PO 09/22/20 08:59 25 mg QAM THOMAS Administration Nortriptyline HCl 25 mg 08/22/20 21:00 08/22/20 20:18 Nortriptyline Hcl 25 Mg Cap PO 09/21/20 20:59 25 mg HS THOMAS Administration Saccharomyces Boulardii 250 mg 08/23/20 10:45 08/23/20 11:19 Saccharomyces Boulardii 250 Mg Cap PO 09/22/20 10:44 250 mg DAILY THOMAS Administration Umeclidinium/Vilanterol 1 puffs 08/23/20 09:00 08/23/20 08:17 Umeclidinium/Vilanterol 62.5/25mcg 7 Puffs/Inhaler INH 09/22/20 08:59 1 puffs DAILY THOMAS Administration Past Medical History Medical History (Updated 08/23/20 @ 14:25 by Gennaro Benítez MD) Acute kidney injury Cholecystitis with gangrene of gallbladder s/p lap vinh on 02/18/[address] Mcintosh, tolerated well, no complications Chronic obstructive pulmonary disease Chronic osteoarthritis Clostridium difficile diarrhea 2018 DNR (do not resuscitate) Dyslipidemia Elevated troponin Noted in ED on 02/15. Per hospitalist progress note 02/16 (Dr. Lagos) "Most likely in setting of acute illness, sepsis. trop up slightly to 0.1 this is all demand ischemia with acute cholangitis, cholelithiasis" Hepatic steatosis Hyperparathyroidism, primary Hypertension Impaired fasting glucose Leukocytosis Resolved on 02/19 labs Lumbar spinal stenosis Migraine HX Nocturnal hypoxia on nocturnal oxygen therapy-2L/MIN NC HS Nontoxic multinodular goiter Venous insufficiency Past Family History Family History Daughter Family history of diabetes mellitus Other No pertinent family history Past Surgical History Surgical History History of appendectomy History of cholecystectomy History of colonoscopy History of hip replacement R/L History of knee replacement RIGHT Social History Smoking Status: Current every day smoker tobacco type: cigarettes Smoking cigarettes per day: 5-10 Do You Dip or Chew Tobacco: No Hx Alcohol Use: No Hx Substance Use: No substance use type: does not use Physical Exam Vital Signs Last Vital Signs Temp 36.9 C 08/23/20 14:18 Pulse 60 08/23/20 14:18 Resp 20 08/23/20 14:18 BP 144/79 H 08/23/20 14:18 Pulse Ox 97 08/23/20 14:18 Testing Laboratory Results 08/23/20 06:52 08/23/20 06:52 PT 10.0 Seconds (9.0-12.0) 08/22/20 12:30 INR 1.0 (0.9-1.1) 08/22/20 12:30 APTT 28.0 Seconds (21.0-31.0) 08/22/20 12:30 Urine Color Dark Yellow 08/22/20 16:05 Urine Appearance Clear (Clear) 08/22/20 16:05 Urine pH 5.0 (4.5-7.5) 08/22/20 16:05 Ur Specific [place] 1.019 (1.000-1.030) 08/22/20 16:05 Urine Protein 1+ (Negative) H 08/22/20 16:05 Urine Glucose (UA) Negative (Negative) 08/22/20 16:05 Urine Ketones Trace (Negative) H 08/22/20 16:05 Urine Nitrite Negative (Negative) 08/22/20 16:05 Ur Leukocyte Esterase Negative (Negative) 08/22/20 16:05 Urine WBC (Auto) 1-5 /hpf (0-5) 08/22/20 16:05 Urine RBC (Auto) 5-10 /hpf (0-4) H 08/22/20 16:05 U Hyaline Cast (Auto) 10-30 /lpf (0-5) H 08/22/20 16:05 U Epithel Cells (Auto) 20-30 /lpf (0-5) H 08/22/20 16:05 Urine Bacteria (Auto) Negative (Negative) 08/22/20 16:05 Electrocardiogram Date: 08/22/20 Findings: + NSR @ (96) and + NE (possible old inf, ant) Chest X-Ray Date: 08/22/20 Findings: + NAD
[2020-08-23] MEDS ORDERED: INDOMETHACIN 50 MG SUPP PR ONE (14:31)
[2020-08-23] MEDS ORDERED: SUCCINYLCHOLINE CHLORIDE 20 MG/ML 10 ML VIAL IV ONE (14:45)
[2020-08-23] MEDS ORDERED: PHENYLEPHRINE 100MCG/ML 5ML SYR ONE (15:45)
[2020-08-23] MEDS ORDERED: GLYCOPYRROLATE 0.2 MG/ML VIAL ONE (15:45)
--- NOTE | 2020-08-23 16:08 | Operative Report ---
Post Operative Report Pre & Post Diagnosis Operation Date: 08/23/20 08:00 Pre-Op Diagnosis: Acute cholangitis Post-Op Diagnosis: Acute cholangitis I identified the patient and participated in the time-out.: Yes Procedure Operation Date: 08/23/20 08:00 Actual Procedures p Endoscopic Retrograde Cholangiopancreatogram with Biliary Stent Placement(Not Applicable) - Casey Couch MD s Endoscopic Ultrasonography Upper(Not Applicable) - Casey Couch MD Surgeon Casey Couch MD Grooving Lathe Tender None Estimated Blood Loss 0 Findings See Below (Biliary stricture, Cholangitis, Stent placed. Panc mass, biopsied) Specimens Panc mass and LN Description of Procedure EUS/ERCP I attest to the content of the Intraoperative Record and any orders documented therein. Any exceptions are noted below.
--- NOTE | 2020-08-23 16:33 | GI REPORT ---
Patient Name: Dora Kirby Procedure Date: 08/23/2020 2:07 PM Date of : 1945 Admit Type: Inpatient Age: 74 Gender: Female Attending MD: Casey Couch MD Procedure: ERCP Providers: Casey Couch MD Referring MD: Demond Mcginnis Indications: For therapy of ascending cholangitis, Elevated liver enzymes Medicines: General Anesthesia Complications: No immediate complications. Estimated Blood Loss: Estimated blood loss: none. Procedure: Pre-Anesthesia Assessment: - Prior to the procedure, a History and Physical was performed, and patient medications, allergies and sensitivities were reviewed. The patient's tolerance of previous anesthesia was reviewed. - The risks and benefits of the procedure and the sedation options and risks were discussed with the patient. All questions were answered and informed consent was obtained. - Patient identification and proposed procedure were verified prior to the procedure by the physician and the nurse. The procedure was verified in the procedure room. - Pre-procedure physical examination revealed no contraindications to sedation. After obtaining informed consent, the scope was passed under direct vision. Throughout the procedure, the patient's blood pressure, pulse, and oxygen saturations were monitored continuously. The Scope was introduced through the mouth, and advanced to the duodenum and used to inject contrast into the bile duct. The ERCP was accomplished without difficulty. The patient tolerated the procedure well. Findings: A signal apprentice film of the abdomen was obtained. Surgical clips, consistent with a previous cholecystectomy, were seen in the area of the right upper quadrant of the abdomen. The esophagus was successfully intubated under direct vision. The scope was advanced to a normal major papilla in the descending duodenum without detailed examination of the pharynx, larynx and associated structures, and upper GI tract. The upper GI tract was grossly normal. A 0.035 inch straight standard wire was passed into the biliary tree. The 8.5 mm balloon was passed over the guidewire and the bile duct was then deeply cannulated. Contrast was injected. I personally interpreted the bile duct images. Ductal flow of contrast was adequate. Image quality was adequate. Contrast extended to the main bile duct. Opacification of the entire biliary tree except for the gallbladder was successful. The maximum diameter of the ducts was 15 mm. The lower third of the main bile duct just at the level of the ampulla contained a single short stenosis 10 mm in length. The biliary tree was swept with a 15 mm balloon starting at the bifurcation. Sludge was swept from the duct. Pus was swept from the duct. Biopsies were taken in the area of the papilla through the ERCP scope with the cold forceps for histology. Verification of patient identification for the specimen was done by the physician and nurse using the patient's name and date. One 10 mm by 6 cm covered metal biliary stent was placed into the common bile duct. Bile flowed through the stent. The stent was in good position. 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 - The biliary tree was swept and sludge and pus were found. - One covered metal biliary stent was placed into the common bile duct. Recommendation: - [facility]. - Advance diet as tolerated. - Complete a 7 days course of ABx. Casey Couch MD 08/23/2020 4:32:44 PM This report has been signed electronically. Note Initiated On: 08/23/2020 2:07 PM Number of Addenda: 0 I attest to the content of the Intraoperative Record and orders documented therein, exceptions below {[id number]}
--- NOTE | 2020-08-23 16:36 | Anesthesiology Progress Note ---
Date of Service August 23, 2020 Anesthesia Post Procedure Vital Signs Vital Signs: Temp Pulse Pulse Resp BP BP Pulse Ox 08/23/20 14:18 36.9 C 60 20 144/79 H 97 08/23/20 13:52 90 20 96 08/23/20 10:53 36.8 C 61 19 108/64 95 08/23/20 09:28 64 08/23/20 07:35 36.7 C 76 19 101/63 94 08/23/20 03:03 36.6 C 69 20 94/62 L 95 08/23/20 02:14 109/70 08/23/20 00:00 76 08/22/20 23:50 93/59 L 98/63 L 08/22/20 23:09 37.1 C 78 22 84/47 L 96 08/22/20 20:33 37.4 C 71 23 120/73 97 08/22/20 18:52 88 08/22/20 17:22 37.2 C 89 20 115/76 93 Pain Intensity Abdomen: Pain Intensity: 7 Transfer of Care Handoff Completed per policy Notes Mental Status: alert / awake / arousable Patient Amnestic to Procedure: Yes Nausea / Vomiting: adequately controlled Pain: adequately controlled Airway Patency, RR, SpO2: stable & adequate BP & HR: stable & adequate Hydration State: stable & adequate Anesthetic Complications: no major complications apparent
--- NOTE | 2020-08-23 16:51 | Fluoroscopy Report ---
INTRAOPERATIVE RADIOGRAPHS CLINICAL HISTORY: ERCP. Fluoroscopy time: 51 seconds. FINDINGS: 8 spot fluoroscopic views of the right upper quadrant from an ERCP procedure are correlated with MRCP and abdominal CT dated 08/22/2020. There is cannulation of the common bile duct. There is in tra and extrahepatic biliary ductal dilatation. Filling defects are identified in the distal common b ile duct. A balloon sweep of the duct is performed, and the final images show a common bile duct sten t in place. The intrahepatic bile ducts demonstrate a somewhat beaded appearance. Cholecystectomy cli ps are noted in the right upper quadrant. IMPRESSION: 1. There is intra and extrahepatic biliary ductal dilatation. 2. The intrahepatic bile ducts demonstrate somewhat beaded appearance. 3. There are filling defects identified within the common bile duct prior to stent placement. Correla tion with the operative findings will be required. Electronically signed by: Rajesh Gonzalez M.D. 08/23/2020 4:50 PM
--- NOTE | 2020-08-23 16:52 | GI REPORT ---
Patient Name: Dora Kirby Procedure Date: 08/23/2020 2:53 PM Date of : 1945 Admit Type: Inpatient Age: 74 Gender: Female Attending MD: Casey Couch MD Procedure: Upper EUS Providers: Casey Couch MD Referring MD: Demond Mcginnis Indications: Common bile duct dilation (acquired) seen on MRCP, Weight loss Medicines: General Anesthesia Complications: No immediate complications. Estimated Blood Loss: Estimated blood loss: none. Procedure: Pre-Anesthesia Assessment: - Prior to the procedure, a History and Physical was performed, and patient medications, allergies and sensitivities were reviewed. The patient's tolerance of previous anesthesia was reviewed. - The risks and benefits of the procedure and the sedation options and risks were discussed with the patient. All questions were answered and informed consent was obtained. - Patient identification and proposed procedure were verified prior to the procedure by the physician and the nurse. The procedure was verified in the procedure room. - Pre-procedure physical examination revealed no contraindications to sedation. After obtaining informed consent, the endoscope was passed under direct vision. Throughout the procedure, the patient's blood pressure, pulse, and oxygen saturations were monitored continuously. The scope was introduced through the mouth, and advanced to the second part of duodenum. The upper EUS was accomplished without difficulty. The patient tolerated the procedure well. Findings: ENDOSONOGRAPHIC FINDING: : A subtle round mass was identified in the pancreatic head. The mass was hypoechoic and heterogenous. The mass measured 33 mm by 30 mm in maximal cross-sectional diameter. The endosonographic borders were poorly-defined. An intact interface was seen between the mass and the adjacent structures suggesting a lack of invasion. The remainder of the pancreas was examined. The endosonographic appearance of parenchyma and the upstream pancreatic duct indicated a maximum duct diameter of 2 mm. Fine needle aspiration for cytology was performed. Color Doppler imaging was utilized prior to needle puncture to confirm a lack of significant vascular structures within the needle path. Three passes were made with the 25 gauge needle using a transduodenal approach. A stylet was used. A temperature control inspector was present and performed a preliminary cytologic examination. The cellularity of the specimen was adequate. Final cytology results are pending. Verification of patient identification for the specimen was done by the physician and nurse using the patient's name and date. This was staged T2 N1 Mx by endosonographic criteria. The staging applies if malignancy is confirmed. There was no sign of significant endosonographic abnormality in the ampulla. No masses were identified. There was dilation in the common bile duct which measured up to 15 mm. Extensive hyperechoic material consistent with sludge was visualized endosonographically in the common bile duct. Evidence of a previous cholecystectomy was identified endosonographically. Pancreatic parenchymal abnormalities were noted in the entire pancreas. These consisted of calcifications, hyperechoic strands, hyperechoic foci and cysts. An anechoic lesion suggestive of a cyst was identified in the uncinate process of the pancreas. The lesion measured 6 mm in maximal cross-sectional diameter. There was a single compartment There was no associated mass. There was no internal debris within the fluid-filled cavity. Two enlarged lymph nodes were visualized in the yazan hepatis region. The largest measured 20 mm in maximal cross-sectional diameter. The nodes were oval, hypoechoic and had well defined margins. Fine needle aspiration for cytology was performed. Color Doppler imaging was utilized prior to needle puncture to confirm a lack of significant vascular structures within the needle path. Three passes were made with the 25 gauge needle using a transduodenal approach. A stylet was used. A temperature control inspector was present and performed a preliminary cytologic examination. The cellularity of the specimen was adequate. Final cytology results are pending. There was no sign of significant endosonographic abnormality in the visualized portion of the left adrenal gland. There was no sign of significant endosonographic abnormality involving the celiac trunk. Impression: - A mass was identified in the pancreatic head. Fine needle aspiration performed. - There was no sign of significant pathology in the ampulla. - There was dilation in the common bile duct which measured up to 15 mm. - Hyperechoic material consistent with sludge was visualized endosonographically in the common bile duct. - Evidence of a cholecystectomy. - Pancreatic parenchymal abnormalities consisting of calcifications, hyperechoic strands, hyperechoic foci and cysts were noted in the entire pancreas. - A 6 mm cyst was seen in the uncinate process of the pancreas. - Two enlarged lymph nodes were visualized in the yazan hepatis region. Fine needle aspiration performed. - Endosonographic images of the left adrenal gland were unremarkable. - The celiac trunk was endosonographically normal. Recommendation: - Await cytology results. - Perform an ERCP today. Casey Couch MD 08/23/2020 4:51:41 PM This report has been signed electronically. Note Initiated On: 08/23/2020 2:53 PM Number of Addenda: 0 I attest to the content of the Intraoperative Record and orders documented therein, exceptions below {[id number]}
[2020-08-23] MEDS: ATORVASTATIN 20 MG TAB PO SCH (21:47)
[2020-08-23] MEDS: NORTRIPTYLINE HCL 25 MG CAP PO SCH (21:47)
[2020-08-23] MEDS: THIAMINE HCL 100 MG in SYRINGE 9 ML IV SCH (21:47)
[2020-08-23] MEDS: GABAPENTIN 300 MG CAP PO SCH (21:47)
[2020-08-24] MEDS: PIPERACILLIN/TAZOBACTAM 3.375 GM in DEXTROSE 5% 100 ML IV SCH ×3 (02:22→18:00)
[2020-08-24] MEDS: POTASSIUM CHLORIDE 30 MEQ in SODIUM CHLORIDE 0.9% 1000ML 1,000 ML IV SCH ×3 (03:20→13:26)
[2020-08-24] MEDS: THIAMINE HCL 100 MG in SYRINGE 9 ML IV SCH ×2 (08:25→20:47)
[2020-08-24] MEDS: METOPROLOL SUCC 25MG EXT REL TAB PO SCH (08:25)
[2020-08-24] MEDS: FAMOTIDINE 20 MG in SYRINGE 3 ML IV SCH (08:25)
[2020-08-24] MEDS: PANTOprazole 40 MG TAB PO SCH (08:26)
[2020-08-24] MEDS: SACCHAROMYCES BOULARDII 250 MG CAP PO SCH (08:26)
[2020-08-24] MEDS: UMECLIDINIUM/VILANTEROL 62.5/25MCG 7 PUFFS/INHALER INH SCH (08:26)
[2020-08-24] MEDS: ASPIRIN 81 MG ECTAB PO SCH (08:26)
--- NOTE | 2020-08-24 08:29 | Hospitalist Progress Note ---
Date of Service August 24, 2020 Assessment & Plan (1) Sepsis: Confirmed biliary source with elevated LFTs and cbd stricture found on ERCP, dilated and stent placed, purulence noted on ERCP 08/23/2020 blood cultures show gram negative bacilli, previously had klebsiella in 02/09 Watson catheter Lactate 2.0, no need to repeat Empiric antibiotic coverage with IV Zosyn, previous klebsiella was reis sensitive, notable history of C. 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 (4) Acute cholangitis: ERCP shows cbd purulent drainage, continues on zosyn (5) Biliary obstruction: MRCP IMPRESSION: 1. Prior cholecystectomy. There are numerous filling defects in the extrahepatic biliary tree with resultant intrahepatic and extrahepatic biliary ductal dilation. Findings are suggestive of choledocholithiasis versus hemobilia. 2. Numerous subcentimeter tiny cystic foci of the pancreas redemonstrated suggestive of sidebranch IPMN's. 3. No pancreatic ductal dilation ERCP with CBD stricture, stent placed pathology concerning for adenocarcinoma (6) Elevated liver enzymes: improved (7) Acute kidney injury: resolving with hydration and sessation of renal toxic meds No obstructive cause found on CT. (8) Lumbar spinal stenosis: Hold hydrocodone. iv Dilaudid and acetaminophen while NPO. (9) Nocturnal hypoxia: Usually on 2 L oxygen at night. Aim O2 sats > 94%. (10) DVT prophylaxis: Heparin 5000 units SQ twice daily Admission and Anticipated Discharge Date Admission Date: August 22, 2020 Subjective 74 yr old female admitted with cholangitis, weight loss, weakness. EUS yesterday with 3cm pancreatic head mass. Biopsy Adenocarcinoma Tolerating advancing diet Feeling a little stronger and denies abd pain is having some diarrhea Review of Systems Review of Systems: Mild distress and fatigue no headache, blurry or double vision no speech or swallowing issues no chest pain, pressure or palpitations no shortness of breath, cough or wheezes continues with Minor right upper quadrant abdominal pain, without associated nausea or vomiting, no complaints of diarrhea no dysuria, hematuria or frequency no focal joint pain or swelling Persisting chronic daily back pain, CVA tenderness or radicular pain no bruising, bleeding or rashes no focal signs of weakness or numbness or altered sensation no complaints of anxiety or depression.. Physical Exam Physical Exam: The patient appeared well nourished and normally developed. Vital signs as documented. Head exam is normocephalic atraumatic no scleral icterus Neck is without JVD, thyromegaly, or carotid bruits. Lungs are clear to auscultation, no focal loss of breath sounds Cardiac exam, Rhythm is regular.. No murmurs, rubs or gallops. Abdominal exam reveals normal bowel sounds, no murmur quadrant tenderness no rebound no guarding Extremities are nonedematous and both pedal pulses are present Neurologic exam is alert and oriented, no focal loss of strength or sensation Skin is without bruises or rashes there is no jaundice Psychologically is without concerns for anxiety or depression Results & Data Results & Data ([facility]) Vital Signs (Past 12 Hours) Vital Signs Temp Pulse Pulse Pulse Resp BP Pulse Ox 08/24/20 08:00 98.8 F 79 17 113/73 97 08/24/20 07:21 96 H 08/24/20 05:00 98.4 F 93 H 112/69 90 08/23/20 23:22 99.3 F 65 20 127/76 98 PG Care Time/CCT Total # of Minutes Spent Total Time Spent with Patient: Total time spent is greater than 50% in coordination of care (as documented) at patient's floor/unit and/or counseling patient: Coding Level of Care Code 45508 Subseq Hosp Care Lvl 3 Diagnoses Sepsis A41.9; R65.20; N17.9 Acute renal failure type: unspecified Sepsis acute organ dysfunction status: with acute organ dysfunction Sepsis type: sepsis due to unspecified organism Severe sepsis acute organ dysfunction type: acute renal failure Severe sepsis shock status: without septic shock Adenocarcinoma C80.1 Acute hypotension I95.9 Acute cholangitis K83.09 Biliary obstruction K83.1 Elevated liver enzymes R74.8 Acute kidney injury N17.9 Lumbar spinal stenosis M48.061 Nocturnal hypoxia G47.34 DVT prophylaxis Z29.9 (1) Sepsis Acute renal failure type: unspecified Sepsis acute organ dysfunction status: with acute organ dysfunction Sepsis type: sepsis due to unspecified organism Severe sepsis acute organ dysfunction type: acute renal failure Severe sepsis shock status: without septic shock Qualified Code(s): A41.9 - Sepsis, unspecified organism; R65.20 - Severe sepsis without septic shock; N17.9 - Acute kidney failure, unspecified
[2020-08-24] MEDS: HYDROmorphone INJ 0.5 MG/0.5 ML SYR IV PRN (10:17)
[2020-08-24 12:59] LABS: Cdiff Antigen Positive; Cdiff Toxin A+B Negative Cdiff Toxin (Negative)
--- NOTE | 2020-08-24 13:28 | Gastroenterology Progress Note ---
Date of Service August 24, 2020 Assessment & Plan (1) Acute cholangitis: Continue Zosyn or other broad spectrum antibiotic, total of 7 days. May advance diet as tolerate. Present on Admission?: Yes (2) Mass of pancreas: 3cm mass seen on EUS on 08/23/20. Not likely the cause of the cholangitis as does not appear to be compressing the CBD. - Will review pathology/cytology when available. Present on Admission?: Yes Admission and Anticipated Discharge Date Admission Date: August 22, 2020 Supervising Physician Co-Signing Physician Notes Attg add: I interviewed and examined pt, reviewed chart and labs. Pt denies pain. She is tolerating PO. She had four loose BM's this am. On exam, her abd is non tender. No labs today. Path from EUS FNA shows pancreatic ductal CA. A/P: Pancreatic CA, cholangitis -- Pt clinically improved, without fever and improved BP. PLEASE CHECK LABS in am, to follow up LFT's, WBC, creatinine. Will plan to complete 7 days of abx. Plan to complete staging w/u (panc protocol CT, chest C T) prior to discharge. C diff - Subjective 74 yr old female admitted with cholangitis, weight loss, weakness. EUS yesterday with 3cm pancreatic head mass. FNA'ed Bx pending. Taking liquids po today. Feeling a little stronger and denies abd pain today. Review of Systems Review of Systems: ROS: Gen: + weakness, weight loss, no fevers Eyes: No eye redness, or pain, no recent vision changes Resp: No SOB, no cough Cardio: No palpitations/irregular beats, no chest pain GI: today - no abdominal pain, no nausea/vomiting : Denies pain on urination Skin: No jaundice, itching or new rashes Physical Exam Constitutional: WD/WN, vitals as above + ill appearing and + thin Eyes: PERRL, conjunctivae normal, anicteric sclerae Neck: trachea midline, no thyromegaly Respiratory: + cough Auscultation: + crackles (few at both bases) and + wheezes (moderate, throughout) Cardiovascular: RRR, no murmur, no edema Gastrointestinal (Abdomen): Inspection/Auscultation: + hypoactive bowel sounds; abdomen not distended Percussion/Palpation: + abdomen tender (epigastric and RUQ) and abdomen soft Skin: no rashes, warm and dry Neurologic: PERRL, EOMI, accommodation nl, no face palsy, no dysarthria Psychiatric: A+Ox3, euthymic affect Lymphatic: no cervical or axillary lymphadenopathy Results & Data ([facility]) Vital Signs (Past 12 Hours) Vital Signs Temp Pulse Pulse Pulse Resp BP Pulse Ox 08/24/20 11:48 36.5 C 81 20 121/63 98 08/24/20 08:00 37.1 C 79 17 113/73 97 08/24/20 07:21 96 H 08/24/20 05:00 36.9 C 93 H 112/69 90 Laboratory Results C-diff (+) WBC 9, Hb 12, Hct 37, Platelets 243, Na 140, K 4.0, BUN 47, Cr 1.81, glucose 84 Diagnostic Findings EUS 08/23/20: - A mass was identified in the pancreatic head. Fine needle aspiration performed. - There was no sign of significant pathology in the ampulla. - There was dilation in the common bile duct which measured up to 15 mm. - Hyperechoic material consistent with sludge was visualized endosonographically in the common bile duct. - Evidence of a cholecystectomy. - Pancreatic parenchymal abnormalities consisting of calcifications, hyperechoic strands, hyperechoic foci and cysts were noted in the entire pancreas. - A 6 mm cyst was seen in the uncinate process of the pancreas. - Two enlarged lymph nodes were visualized in the yazan hepatis region. Fine needle aspiration performed. - Endosonographic images of the left adrenal gland were unremarkable. - The celiac trunk was endosonographically normal. ERCP 08/23/20: - Biliary stricture was found in the lower third of the main bile duct. - The biliary tree was swept and sludge and pus were found. - One covered metal biliary stent was placed into the common bile duct. ERCP Films 08/23/20: 1. There is intra and extrahepatic biliary ductal dilatation. 2. The intrahepatic bile ducts demonstrate somewhat beaded appearance. 3. There are filling defects identified within the common bile duct prior to stent placement. Correlation with the operative findings will be required. MRCP 08/22/20: PRESSION: 1. Prior cholecystectomy. There are numerous filling defects in the extrahepatic biliary tree with resultant intrahepatic and extrahepatic biliary ductal dilation. Findings are suggestive of choledocholithiasis versus hemobilia. 2. Numerous subcentimeter tiny cystic foci of the pancreas redemonstrated suggestive of sidebranch IPMN's. 3. No pancreatic ductal dilation. Non Contrast CTAP on 08/22/20: 1. Bibasilar mucous plugging with mild right lower lobe tree-in-bud nodules compatible with an infectious or inflammatory bronchiolitis. 2. No bowel obstruction or bowel wall thickening. 3. No urolith or obstructive uropathy. 4. Cholecystectomy with mild intrahepatic and extrahepatic biliary ductal dilation. This may be on a postsurgical basis however has progressed from 02/19/2020. Correlate with LFTs. 5. Evidence of chronic pancreatitis. 6. Additional findings as above.
[2020-08-24] MEDS: HYDROCODONE/ACETAMINOPHEN 7.5/325MG TAB PO PRN ×2 (16:16→23:02)
[2020-08-24] MEDS: RASPBERRY SYRUP 5 ML UDP PO SCH ×2 (16:17→20:47)
[2020-08-24] MEDS: VANCOMYCIN HCL 125 MG/2.5ML SOLN PO SCH ×2 (16:17→20:47)
[2020-08-24] MEDS: GABAPENTIN 300 MG CAP PO SCH (20:46)
[2020-08-24] MEDS: ATORVASTATIN 20 MG TAB PO SCH (20:46)
[2020-08-24] MEDS: NORTRIPTYLINE HCL 25 MG CAP PO SCH (20:46)
[2020-08-25] MEDS: PIPERACILLIN/TAZOBACTAM 3.375 GM in DEXTROSE 5% 100 ML IV SCH ×2 (03:05→09:14)
[2020-08-25 06:45] LABS: Hematocrit (blood only) 38.3 % (37-47); Hemoglobin 12.1 g/dL (12.0-16.0); Mean Corpuscular Hemoglobin 31.5 pg (25-34); Mean Corpuscular Hgb Conc 31.6 g/dL (32-36); Mean Corpuscular Volume 99.7 fL (80-100); Mean Platelet Volume 8.4 fL (7.4-10.4); Platelet Count 211 K/uL (130-400); RDW Coefficient of Variation 14.2 % (11.5-14.5); RDW Standard Deviation 51.2 fL (36.4-46.3); Red Blood Count 3.84 M/uL (4.2-5.4); White Blood Count 6.89 K/uL (4.8-10.8)
[2020-08-25 06:55] LABS: Partial Thromboplastin Ratio 1.1; Partial Thromboplastin Time 28.8 Seconds (21.0-31.0)
[2020-08-25 07:21] LABS: Est GFR (African American) 49.2; Potassium 4.2 mmol/L (3.5-5.1)
[2020-08-25] MEDS: HYDROCODONE/ACETAMINOPHEN 7.5/325MG TAB PO PRN ×3 (07:21→20:11)
[2020-08-25 07:22] LABS: Albumin Globulin Ratio 0.6 (0.9-2); Albumin Level 2.1 gm/dl (3.4-5.0); BUN Creatinine Ratio 20.5 (10-20); Bilirubin,Total 0.8 mg/dl (0.2-1); Calcium 8.2 mg/dl (8.5-10.1); Creatinine Clr Calc Pharmacy 39.1 ml/min; Est GFR (Non-African American) 42.5; Globulin 3.6 gm/dl (2.5-4.0); Total Protein 5.7 gm/dl (6.4-8.2)
[2020-08-25] MEDS: SACCHAROMYCES BOULARDII 250 MG CAP PO SCH (09:12)
[2020-08-25] MEDS: RASPBERRY SYRUP 5 ML UDP PO SCH ×2 (09:12→13:28)
[2020-08-25] MEDS: VANCOMYCIN HCL 125 MG/2.5ML SOLN PO SCH ×2 (09:13→13:28)
[2020-08-25] MEDS: METOPROLOL SUCC 25MG EXT REL TAB PO SCH (09:13)
[2020-08-25] MEDS: FAMOTIDINE 20 MG in SYRINGE 3 ML IV SCH (09:13)
[2020-08-25] MEDS: PANTOprazole 40 MG TAB PO SCH (09:13)
[2020-08-25] MEDS: UMECLIDINIUM/VILANTEROL 62.5/25MCG 7 PUFFS/INHALER INH SCH (09:13)
[2020-08-25] MEDS: THIAMINE HCL 100 MG in SYRINGE 9 ML IV SCH ×2 (09:14→21:27)
--- NOTE | 2020-08-25 14:21 | Gastroenterology Progress Note ---
Date of Service August 25, 2020 Assessment & Plan (1) Acute cholangitis: Continue Zosyn or other broad spectrum antibiotic, total of 7 days. Aware gm negative septicemia - so can cover both with same broad spectrum antibiotic. Will advance diet to regular consistency. Present on Admission?: Yes (2) Mass of pancreas: Ampullary adenocarcinoma. Pt would like to see [facility] oncology. Needs staging CT chest, abd pelvis - with IV contrast and creatinine is now improved - so can go forward with that. Present on Admission?: Yes Admission and Anticipated Discharge Date Admission Date: August 22, 2020 Supervising Physician Co-Signing Physician Notes Attg add: I interviewed and examined pt, reviewed chart and labs. She has much less abd pain, shiv PO, denies diarrhea. Labs show improved LFT's, nl WBC. She is C diff PCR pos, tox neg. Panc CA, cholangitis s/p ERCP with metal stent, Klebsiella bacteremia - Complete abx per primary service. Will request panc protocol CT, will need chest CT as well to complete staging and assess resectability. Diet as tolerated. Abx assoc diarrhea - D/c Vanco, can use colestid if recurs. Will sign off, please reconsult as needed. Subjective 74 yr old female admitted with cholangitis, weight loss, weakness. EUS 08/23/20 with 3cm pancreatic head mass. Biopsy Adenocarcinoma Tolerating full liquid diet well. Diarrhea improving on Vancomycim. Review of Systems Review of Systems: ROS: Gen: + weakness, weight loss, no fevers Eyes: No eye redness, or pain, no recent vision changes Resp: No SOB, no cough Cardio: No palpitations/irregular beats, no chest pain GI: today - no abdominal pain, no nausea/vomiting : Denies pain on urination Skin: No jaundice, itching or new rashes Physical Exam Constitutional: WD/WN, vitals as above + ill appearing and + thin Eyes: PERRL, conjunctivae normal, anicteric sclerae Neck: trachea midline, no thyromegaly Respiratory: normal respiratory effort, lungs clear to auscultation Cardiovascular: RRR, no murmur, no edema Gastrointestinal (Abdomen): normal bowel sounds, soft, nontender, no hepatosplenomegaly Skin: no rashes, warm and dry Neurologic: PERRL, EOMI, accommodation nl, no face palsy, no dysarthria Psychiatric: A+Ox3, euthymic affect Lymphatic: no cervical or axillary lymphadenopathy Results & Data ([facility]) Vital Signs (Past 12 Hours) Vital Signs Temp Pulse Pulse Resp BP Pulse Ox 08/25/20 11:07 36.4 C L 73 20 99/63 L 100 08/25/20 08:00 59 L 08/25/20 07:50 36.4 C L 88 18 111/72 98 08/25/20 03:44 36.7 C 87 17 115/75 98
[2020-08-25] MEDS: cefTRIAXone SODIUM 2,000 MG in DEXTROSE 5% 50 ML IV SCH (17:30)
--- NOTE | 2020-08-25 18:18 | Hospitalist Progress Note ---
Date of Service August 25, 2020 Assessment & Plan (1) Sepsis: Confirmed biliary source with elevated LFTs and cbd stricture found on ERCP, dilated and stent placed, purulence noted on ERCP 08/23/2020 blood cultures show pansensitive klebsiella changed to iv rocephin Lactate 2.0, no need to repeat Klebsiella was reis sensitive, notable history of C. 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 (4) Acute cholangitis: ERCP shows cbd purulent drainage, continues on rocephin, based on blood cultures (5) Biliary obstruction: MRCP IMPRESSION: 1. Prior cholecystectomy. There are numerous filling defects in the extrahepatic biliary tree with resultant intrahepatic and extrahepatic biliary ductal dilation. Findings are suggestive of choledocholithiasis versus hemobilia. 2. Numerous subcentimeter tiny cystic foci of the pancreas redemonstrated suggestive of sidebranch IPMN's. 3. No pancreatic ductal dilation ERCP with CBD stricture, stent placed pathology concerning for adenocarcinoma (6) Elevated liver enzymes: improved (7) Acute kidney injury: resolving with hydration and sessation of renal toxic meds No obstructive cause found on CT. (8) Lumbar spinal stenosis: Hold hydrocodone. iv Dilaudid and acetaminophen while NPO. (9) Nocturnal hypoxia: Usually on 2 L oxygen at night. Aim O2 sats > 94%. (10) DVT prophylaxis: Heparin 5000 units SQ twice daily Admission and Anticipated Discharge Date Admission Date: August 22, 2020 Subjective 74 yr old female admitted with cholangitis, weight loss, weakness. EUS 08/23/20 with 3cm pancreatic head mass. Biopsy Adenocarcinoma pt did have klebsiella in blood cultures will have 14 days iv antibiotics total Tolerating full liquid diet well. Review of Systems Review of Systems: Mild distress and fatigue no headache, blurry or double vision no speech or swallowing issues no chest pain, pressure or palpitations no shortness of breath, cough or wheezes continues with Minor right upper quadrant abdominal pain, without associated nausea or vomiting, no complaints of diarrhea no dysuria, hematuria or frequency no focal joint pain or swelling Persisting chronic daily back pain, CVA tenderness or radicular pain no bruising, bleeding or rashes no focal signs of weakness or numbness or altered sensation no complaints of anxiety or depression.. Physical Exam Physical Exam: The patient appeared well nourished and normally developed. Vital signs as documented. Head exam is normocephalic atraumatic no scleral icterus Neck is without JVD, thyromegaly, or carotid bruits. Lungs are clear to auscultation, no focal loss of breath sounds Cardiac exam, Rhythm is regular.. No murmurs, rubs or gallops. Abdominal exam reveals normal bowel sounds, no murmur quadrant tenderness no rebound no guarding Extremities are nonedematous and both pedal pulses are present Neurologic exam is alert and oriented, no focal loss of strength or sensation Skin is without bruises or rashes there is no jaundice Psychologically is without concerns for anxiety or depression Results & Data Results & Data ([facility]) Vital Signs (Past 12 Hours) Vital Signs Temp Pulse Pulse Resp BP Pulse Ox 08/25/20 15:45 97.9 F 61 20 103/66 96 08/25/20 11:07 97.5 F L 73 20 99/63 L 100 08/25/20 08:00 59 L 08/25/20 07:50 97.5 F L 88 18 111/72 98 PG Care Time/CCT Total # of Minutes Spent Total Time Spent with Patient: Total time spent is greater than 50% in coordination of care (as documented) at patient's floor/unit and/or counseling patient: Coding Level of Care Code 04910 Subseq Hosp Care Lvl 3 Diagnoses Sepsis A41.9; R65.20; N17.9 Sepsis type: sepsis due to unspecified organism Sepsis acute organ dysfunction status: with acute organ dysfunction Severe sepsis acute organ dysfunction type: acute renal failure Acute renal failure type: unspecified Severe sepsis shock status: without septic shock Adenocarcinoma C80.1 Acute hypotension I95.9 Acute cholangitis K83.09 Biliary obstruction K83.1 Elevated liver enzymes R74.8 Acute kidney injury N17.9 Lumbar spinal stenosis M48.061 Nocturnal hypoxia G47.34 DVT prophylaxis Z29.9 (1) Sepsis Sepsis type: sepsis due to unspecified organism Sepsis acute organ dysfunction status: with acute organ dysfunction Severe sepsis acute organ dysfunction type: acute renal failure Acute renal failure type: unspecified Severe sepsis shock status: without septic shock Qualified Code(s): A41.9 - Sepsis, unspecified organism; R65.20 - Severe sepsis without septic shock; N17.9 - Acute kidney failure, unspecified
[2020-08-25] MEDS ORDERED: OPTIRAY 300 100mL IV ONE (20:55)
[2020-08-25] MEDS: GABAPENTIN 300 MG CAP PO SCH (21:25)
[2020-08-25] MEDS: ATORVASTATIN 20 MG TAB PO SCH (21:26)
[2020-08-25] MEDS: NORTRIPTYLINE HCL 25 MG CAP PO SCH (21:26)
[2020-08-26 06:56] LABS: Hematocrit (blood only) 39.3 % (37-47); Hemoglobin 12.5 g/dL (12.0-16.0); Mean Corpuscular Hemoglobin 31.5 pg (25-34); Mean Corpuscular Hgb Conc 31.8 g/dL (32-36); Mean Platelet Volume 8.5 fL (7.4-10.4); Platelet Count 202 K/uL (130-400); RDW Coefficient of Variation 13.9 % (11.5-14.5); RDW Standard Deviation 49.5 fL (36.4-46.3); Red Blood Count 3.97 M/uL (4.2-5.4); White Blood Count 6.97 K/uL (4.8-10.8)
[2020-08-26 07:09] LABS: Partial Thromboplastin Time 26.4 Seconds (21.0-31.0)
--- NOTE | 2020-08-26 07:29 | CT Scan Report ---
CT pancreas 3-phase wo/w con CT DOSE: 953.90 mGy.cm CLINICAL HISTORY: Pancreatic carcinoma. Staging procedure. TECHNIQUE: Unenhanced images were obtained through the upper abdomen. The patient was then scanned in a dynamic helical fashion. 30 seconds a second images were acquired. A dose lowering technique was utilized adhering to the principles of ALARA. COMPARISON STUDY: Noncontrast CT scan dated 08/22/2020, MRCP dated 09/09/2020 FINDINGS: There are bibasilar parenchymal lung opacities, likely atelectatic. There are trace pleural effusions . There is pneumobilia. No focal hepatic masses are visualized. The gallbladder is surgically absent. No splenic masses are visualized. No adrenal masses are visualized. There is no evidence of abdominal aortic aneurysm. No renal masses are visualized. There is no hydronephrosis. There is an indwelling biliary enteric stent. There are scattered pancreatic calcifications consistent with chronic pancreatitis. There is no pancr eatic ductal dilatation. There is an equivocal 18 mm isodense pancreatic mass located anterior to the common bile duct stent. A definitive pancreatic carcinoma is however not visualized. The splenic and portal vein is patent. There is no celiac or superior mesenteric artery encasement. There are borderline distal periesophageal lymph nodes. IMPRESSION: 1. The patient's reported pancreatic carcinoma is difficult to visualize on CT scanning. There is an equivocal 18 mm isodense pancreatic mass versus normal pancreatic lobulation located anterior to the common bile duct stent 2. No evidence of celiac or superior mesenteric artery encasement. The splenic and portal veins appea r patent 3. No evidence of pancreatic ductal dilatation 4. No hepatic masses 5. Indwelling biliary enteric stent with pneumobilia 6. Borderline enlarged distal periesophageal lymph nodes ACT 112: Negative or not required by law. Electronically signed by: Wesley Kerr M.D. 08/26/2020 7:27 AM
--- NOTE | 2020-08-26 08:01 | Hospitalist Progress Note ---
Date of Service August 26, 2020 Assessment & Plan (1) Sepsis: Confirmed biliary source with elevated LFTs and cbd stricture found on ERCP, dilated and stent placed, purulence noted on ERCP 08/23/2020 blood cultures show pansensitive klebsiella changed to iv rocephin complete 2 week course for bacteremia Lactate 2.0, no need to repeat Klebsiella was reis sensitive, notable history of C. 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 The patient's reported pancreatic carcinoma is difficult to visualize on CT scanning. There is an equivocal 18 mm isodense pancreatic mass versus normal pancreatic lobulation located anterior to the common bile duct stent 2. No evidence of celiac or superior mesenteric artery encasement. The splenic and portal veins appear patent 3. No evidence of pancreatic ductal dilatation 4. No hepatic masses 5. Indwelling biliary enteric stent with pneumobilia 6. Borderline enlarged distal periesophageal lymph nodes will await on further imaging until oncology does visit with pt and also consider outpt PET scan (3) Acute hypotension: Resolved following 1L NSS bolus continue holding antihypertensives amlodipine and hydrochlorothiazide. (4) Acute cholangitis: ERCP shows cbd purulent drainage, continues on rocephin, based on blood cultures (5) Biliary obstruction: MRCP IMPRESSION: 1. Prior cholecystectomy. There are numerous filling defects in the extrahepatic biliary tree with resultant intrahepatic and extrahepatic biliary ductal dilation. Findings are suggestive of choledocholithiasis versus hemobilia. 2. Numerous subcentimeter tiny cystic foci of the pancreas redemonstrated suggestive of sidebranch IPMN's. 3. No pancreatic ductal dilation ERCP with CBD stricture, stent placed pathology concerning for adenocarcinoma (6) Elevated liver enzymes: improved (7) Acute kidney injury: resolving with hydration and sessation of renal toxic meds No obstructive cause found on CT. (8) Lumbar spinal stenosis: Hold hydrocodone. iv Dilaudid and acetaminophen while NPO. (9) Nocturnal hypoxia: Usually on 2 L oxygen at night. Aim O2 sats > 94%. (10) DVT prophylaxis: Heparin 5000 units SQ twice daily Admission and Anticipated Discharge Date Admission Date: August 22, 2020 Subjective 74 yr old female with pancreatic adenocarcinoma. pt is in good spirits and is tolerating diet well did have gram negative bacteremia Diarrhea x 2 this morning. C=diff DNA +, toxin - Review of Systems Review of Systems: Mild distress and fatigue no headache, blurry or double vision no speech or swallowing issues no chest pain, pressure or palpitations no shortness of breath, cough or wheezes continues with Minor right upper quadrant abdominal pain, without associated nausea or vomiting, no complaints of diarrhea no dysuria, hematuria or frequency no focal joint pain or swelling Persisting chronic daily back pain, CVA tenderness or radicular pain no bruising, bleeding or rashes no focal signs of weakness or numbness or altered sensation no complaints of anxiety or depression.. Physical Exam Physical Exam: The patient appeared well nourished and normally developed. Vital signs as documented. Head exam is normocephalic atraumatic no scleral icterus Neck is without JVD, thyromegaly, or carotid bruits. Lungs are clear to auscultation, no focal loss of breath sounds Cardiac exam, Rhythm is regular.. No murmurs, rubs or gallops. Abdominal exam reveals normal bowel sounds, no murmur quadrant tenderness no rebound no guarding Extremities are nonedematous and both pedal pulses are present Neurologic exam is alert and oriented, no focal loss of strength or sensation Skin is without bruises or rashes there is no jaundice Psychologically is without concerns for anxiety or depression Results & Data Results & Data ([facility]) Vital Signs (Past 12 Hours) Vital Signs Temp Pulse Pulse Resp BP BP Pulse Ox 08/26/20 07:47 98.1 F 91 H 16 112/66 92 08/26/20 04:00 98.1 F 69 20 113/61 97 08/25/20 23:44 97.5 F L 63 18 110/68 96 08/25/20 23:00 82 PG Care Time/CCT Total # of Minutes Spent Total Time Spent with Patient: Total time spent is greater than 50% in coordination of care (as documented) at patient's floor/unit and/or counseling patient: Coding Level of Care Code 10243 Subseq Hosp Care Lvl 3 Diagnoses Sepsis A41.9; R65.20; N17.9 Acute renal failure type: unspecified Sepsis acute organ dysfunction status: with acute organ dysfunction Sepsis type: sepsis due to unspecified organism Severe sepsis acute organ dysfunction type: acute renal failure Severe sepsis shock status: without septic shock Adenocarcinoma C80.1 Acute hypotension I95.9 Acute cholangitis K83.09 Biliary obstruction K83.1 Elevated liver enzymes R74.8 Acute kidney injury N17.9 Lumbar spinal stenosis M48.061 Nocturnal hypoxia G47.34 DVT prophylaxis Z29.9 (1) Sepsis Acute renal failure type: unspecified Sepsis acute organ dysfunction status: with acute organ dysfunction Sepsis type: sepsis due to unspecified organism Severe sepsis acute organ dysfunction type: acute renal failure Severe sepsis shock status: without septic shock Qualified Code(s): A41.9 - Sepsis, unspecified organism; R65.20 - Severe sepsis without septic shock; N17.9 - Acute kidney failure, unspecified
--- NOTE | 2020-08-26 09:28 | Gastroenterology Progress Note ---
Date of Service August 26, 2020 Assessment & Plan (1) Acute cholangitis: Continue Zosyn or other broad spectrum antibiotic, total of 7 days. Aware gm negative septicemia - so can cover both with same broad spectrum antibiotic. Metal stent was placed in the CBD during ERCP, thus no need for f/u procedure for stent removal, it is intended to be permanent. Continue regular diet. Present on Admission?: Yes (2) Mass of pancreas: Pancreatic adenocarcinoma w/o clear evidence of metastatic disease, though there are borderline enlarged lymph nodes near the GE junction on CT. GI will sign off. Present on Admission?: Yes Admission and Anticipated Discharge Date Admission Date: August 22, 2020 Supervising Physician Co-Signing Physician Notes Attg add: I interviewed and examined pt, reviewed chart and labs. She has mild loose stool today, but is ow w/o complaint. CT pancreas reviewed - pt without vasc invasion, possible borderline distant LAD; CT does not show obvious evidence of unresectability. Will request contast enhanced CHest CT tomorrow if creat ok, and recommend out ptf/u with surg and onc services. Plan discussed with daughter - please call with questions. Subjective 74 yr old female with pancreatic adenocarcinoma. Awake alert, hemodynamically stable able to tolerate eating a regular consistency diet. Diarrhea x 2 this morning. C=diff DNA +, toxin - Review of Systems Review of Systems: ROS: Gen: + weakness, weight loss, no fevers Eyes: No eye redness, or pain, no recent vision changes Resp: No SOB, no cough Cardio: No palpitations/irregular beats, no chest pain GI: today - no abdominal pain, no nausea/vomiting : Denies pain on urination Skin: No jaundice, itching or new rashes Physical Exam Constitutional: WD/WN, vitals as above + ill appearing and + thin Eyes: PERRL, conjunctivae normal, anicteric sclerae Neck: trachea midline, no thyromegaly Respiratory: normal respiratory effort, lungs clear to auscultation + cough Cardiovascular: RRR, no murmur, no edema Gastrointestinal (Abdomen): normal bowel sounds, soft, nontender, no hepatosplenomegaly Inspection/Auscultation: + hypoactive bowel sounds; abdomen not distended Percussion/Palpation: + abdomen tender (epigastric and RUQ) and abdomen soft Skin: no rashes, warm and dry Neurologic: PERRL, EOMI, accommodation nl, no face palsy, no dysarthria Psychiatric: A+Ox3, euthymic affect Lymphatic: no cervical or axillary lymphadenopathy Results & Data ([facility]) Vital Signs (Past 12 Hours) Vital Signs Temp Pulse Pulse Resp BP BP Pulse Ox 08/26/20 07:47 36.7 C 91 H 16 112/66 92 08/26/20 04:00 36.7 C 69 20 113/61 97 08/25/20 23:44 36.4 C L 63 18 110/68 96 08/25/20 23:00 82 Laboratory Results WBC 6.9, Hb 12.5, Hct 39.3, plts 202, INR 1.[address] 08/25/20: 1. The patient's reported pancreatic carcinoma is difficult to visualize on CT scanning. There is an equivocal 18 mm isodense pancreatic mass versus normal pancreatic lobulation located anterior to the common bile duct stent 2. No evidence of celiac or superior mesenteric artery encasement. The splenic and portal veins appear patent 3. No evidence of pancreatic ductal dilatation 4. No hepatic masses 5. Indwelling biliary enteric stent with pneumobilia 6. Borderline enlarged distal periesophageal lymph nodes CT chest 08/22/20: 1. Bibasilar mucous plugging with mild right lower lobe tree-in-bud nodules compatible with an infectious or inflammatory bronchiolitis. 2. No bowel obstruction or bowel wall thickening. 3. No urolith or obstructive uropathy. 4. Cholecystectomy with mild intrahepatic and extrahepatic biliary ductal dilation. This may be on a postsurgical basis however has progressed from 02/19/2020. Correlate with LFTs. 5. Evidence of chronic pancreatitis. 6. Additional findings as above.
[2020-08-26] MEDS: PANTOprazole 40 MG TAB PO SCH (09:31)
[2020-08-26] MEDS: UMECLIDINIUM/VILANTEROL 62.5/25MCG 7 PUFFS/INHALER INH SCH (09:31)
[2020-08-26] MEDS: METOPROLOL SUCC 25MG EXT REL TAB PO SCH (09:31)
[2020-08-26] MEDS: ASPIRIN 81 MG ECTAB PO SCH (09:33)
[2020-08-26] MEDS: SACCHAROMYCES BOULARDII 250 MG CAP PO SCH (09:34)
[2020-08-26] MEDS: FAMOTIDINE 20 MG in SYRINGE 3 ML IV SCH (10:03)
[2020-08-26] MEDS: THIAMINE HCL 100 MG in SYRINGE 9 ML IV SCH ×2 (10:03→20:39)
[2020-08-26] MEDS: HYDROmorphone INJ 0.5 MG/0.5 ML SYR IV PRN (10:03)
[2020-08-26] MEDS: HYDROCODONE/ACETAMINOPHEN 7.5/325MG TAB PO PRN ×2 (11:14→23:07)
[2020-08-26 13:30] LABS: BUN Creatinine Ratio 20.8 (10-20); Calcium 8.5 mg/dl (8.5-10.1); Creatinine Clr Calc Pharmacy 38.2 ml/min; Est GFR (African American) 48.7
[2020-08-26] MEDS: cefTRIAXone SODIUM 2,000 MG in DEXTROSE 5% 50 ML IV SCH (18:19)
[2020-08-26] MEDS: NORTRIPTYLINE HCL 25 MG CAP PO SCH (20:38)
[2020-08-26] MEDS: ATORVASTATIN 20 MG TAB PO SCH (20:38)
[2020-08-26] MEDS: GABAPENTIN 300 MG CAP PO SCH (20:39)
[2020-08-27 06:36] LABS: Partial Thromboplastin Time 25.6 Seconds (21.0-31.0)
[2020-08-27 06:55] LABS: BUN Creatinine Ratio 20.8 (10-20); Calcium 7.6 mg/dl (8.5-10.1); Creatinine Clr Calc Pharmacy 43.9 ml/min; Est GFR (African American) 57.5; Est GFR (Non-African American) 49.6
[2020-08-27] MEDS: HYDROCODONE/ACETAMINOPHEN 7.5/325MG TAB PO PRN (07:36)
[2020-08-27] MEDS: SACCHAROMYCES BOULARDII 250 MG CAP PO SCH (09:01)
[2020-08-27] MEDS: UMECLIDINIUM/VILANTEROL 62.5/25MCG 7 PUFFS/INHALER INH SCH (09:01)
[2020-08-27] MEDS: METOPROLOL SUCC 25MG EXT REL TAB PO SCH (09:02)
[2020-08-27] MEDS: PANTOprazole 40 MG TAB PO SCH (09:02)
[2020-08-27] MEDS: THIAMINE HCL 100 MG in SYRINGE 9 ML IV SCH (09:02)
[2020-08-27] MEDS: FAMOTIDINE 20 MG in SYRINGE 3 ML IV SCH (09:07)
[2020-08-27] MEDS ORDERED: cefTRIAXone SODIUM 2,000 MG in DEXTROSE 5% 50 ML IV SCH (10:45)
--- NOTE | 2020-08-27 11:39 | Consultation Report ---
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 HISTORY OF PRESENT ILLNESS: Dora Kirby is a pleasant 74-year-old female patient who was admitted to [facility] on 08/22/2020 with preliminary diagnoses of generalized weakness, decreased ambulation, anorexia and a 30-pound weight loss. She apparently fell in her bathroom and her spouse had to assist her back to bed. The patient had reported being too weak to get off the toilet, again requiring assistance. Upon admission, she was noted to be acutely dehydrated. Her creatinine significantly elevated at 2.54. CT scan of the chest, abdomen and pelvis done on admission revealed evidence of chronic pancreatitis, status post cholecystectomy with mild intrahepatic and extrahepatic biliary ductal dilatation. There is no bowel obstruction noted. CT scan of the chest revealed mucous plugging with mild right lower lobe tree-in-bud nodules compatible with infectious or perhaps inflammatory bronchiolitis. Because of the radiographic findings, GI was consulted. The patient underwent an ERCP on 08/23/2020 revealing intra and extrahepatic biliary ductal dilatation, intrahepatic bile ducts were somewhat beaded in appearance and filling defects identified within the common bile duct prior to stent placement. Biopsies were obtained and unfortunately consistent with adenocarcinoma. Further radiographic investigation including pancreatic CT scan and upper endoscopic ultrasound delineated a 2-3 cm mass in the pancreatic head. Dora seems to be making gradual progress; however, is now battling Klebsiella bacteremia and receiving broad-spectrum antibiotics. I was asked by the hospitalist service to discuss further diagnostic and therapeutic plans for Dora's neoplasia. Engaged in discussion with her at bedside and advised her, perhaps her disease is surgical, but she needs to be optimally well from a clinical standpoint to be considered for a Whipple procedure, which is an extensive surgery requiring a lengthy recovery time. Also, briefly discussed the possibility of neoadjuvant chemoradiation versus chemotherapy as possible options. Dora understands she needs to be seen in tertiary center and is debating between [facility] and the [facility] because she has daughters in both of those regional areas. Dora said that she needed to speak to her family before making a definitive decision. I believe she is pending discharge within the next 24 hours or so. 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 PAST SURGICAL HISTORY: Includes appendectomy, cholecystectomy, colonoscopy, hip replacement, right knee replacement. MEDICATIONS: Prior to admission included omega-3 fish oil 1 capsule p.o. daily, vitamin C 1 gram p.o. daily, vitamin E 100 units p.o. daily, cholecalciferol 1000 units p.o. daily, gabapentin 300 mg p.o. at bedtime, aspirin 81 mg p.o. as directed, PreserVision 1 tablet p.o. b.i.d., atorvastatin 20 mg p.o. daily, albuterol sulfate inhaler 2 puffs inhaled q.6 hours p.r.n., metoprolol 25 mg p.o. daily, garlic 1000 mg p.o. daily, hydrochlorothiazide 25 mg p.o. daily, nortriptyline 20-50 mg p.o. at bedtime, amlodipine 5 mg p.o. daily, hydrocodone/acetaminophen 2 tablets p.o. q.6 hours 10/325 tablets, Protonix 40 mg p.o. daily. ALLERGIES: BACITRACIN/NEOMYCIN/POLYMYXIN B, BUPROPION, AMINOGLYCOSIDES. SOCIAL HISTORY: The patient is . 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 She has a 39-ozgt-wula history. Negative for alcohol or illicit drugs. FAMILY HISTORY: Daughter with a history of diabetes mellitus. No family history of neoplasia or hematologic malignancy. REVIEW OF SYSTEMS: As per HPI. CONSTITUTIONAL: General clinical decline, anorexia and a 30-pound weight loss over the past couple of months. No fevers, chills or sweats presently. SKIN: No rashes or lesions. No history of dermatoses. HEENT: Negative for headaches, lightheadedness or dizziness. No acute visual or hearing deficits. No sinus symptoms, sore throat or dysphagia. LYMPHATICS: No history of lymphoproliferative disease. CARDIAC: No history of coronary artery disease, no angina or palpitations. PULMONARY: Positive for COPD, uses inhaled bronchodilators and steroids. No cough or hemoptysis reported. GASTROINTESTINAL: She is not experiencing significant abdominal pain at present. No nausea or vomiting, no diarrhea or constipation presently. GENITOURINARY: No hematuria, dysuria, or urinary incontinence. MUSCULOSKELETAL: Positive for osteoarthritis, status post right knee replacement. ENDOCRINE: Negative for diabetes or thyroid disease. NEUROLOGIC: Negative for seizure, stroke, or migraine headache. HEMATOLOGIC: Negative for thrombophilia. Positive for secondary erythrocytosis and idiopathic neutrophilia, both attributable to cigarette smoking. PHYSICAL EXAMINATION: GENERAL: A very pleasant 74-year-old female, awake, alert and appropriate, in no acute distress. VITAL SIGNS: Temperature 36.7, pulse 73, respiratory rate 18, blood pressure 112/64. SKIN: Warm, dry, noncyanotic without petechia, rash or ecchymosis. HEENT: Atraumatic, normocephalic. Eyes: PERRLA, EOMI. Sclerae nonicteric. Nares patent without rhinorrhea or discharge. Throat clear. Tongue midline. Mucous membranes are moist. NECK: Supple without JVD or thyromegaly. HEART: Regular rate and rhythm. No clicks, rubs, murmurs, or gallops. LUNGS: Clear to auscultation. Few occasional expiratory wheezes. ABDOMEN: Soft, nontender, nondistended, without palpable hepatosplenomegaly. EXTREMITIES: No clubbing, cyanosis, or edema. Pulses are equal in all 4 quadrants. NEUROLOGICAL: She is awake, alert and oriented x3. Cranial nerves are grossly intact. LABORATORY DATA: Sodium 143, potassium 4.0, chloride 114, carbon dioxide 27, creatinine 1.09, BUN 23. IMPRESSION: 1. 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 2. Acute cholangitis. 3. Klebsiella bacteremia. 4. Biliary obstruction. 5. Elevated liver transaminases. 6. Anorexia/weight loss. 7. Acute renal injury. PLAN: In summary, it was my pleasure to visit with Dora at bedside. Dora is actually a patient at [facility]. 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 I had not seen her in clinic for the last couple of years. Apparently, she has had abdominal issues over the past couple of months with diminishing appetite and overall performance status, and recently underwent a cholecystectomy because of cholecystitis and necrosis of the gallbladder. Full radiographic and endoscopic workup took place earlier in the patient's admission. Biopsies are consistent with adenocarcinoma of the ampulla. Discussed typical management for pancreatic cancers. First and foremost, determining if Dora is resectable. Generally speaking, if the tumor avoids the nerve plexus and vascular system, she could perhaps undergo a Whipple procedure, which is an extensive surgery and requires a prolonged recovery. Other options would include neoadjuvant chemoradiation or neoadjuvant chemotherapy perhaps. Dora will require a surgical consultation at tertiary center. She has a daughter that lives near [facility] and another one that lives close to [place]. She wants to talk to both of her children to determine which direction she will go. I took the liberty of ordering a CA 19-9. In lieu of a repeat CAT scan, perhaps let us arrange for Dora to have a PET scan outpatient. I will plan to reconvene with her in the next week or 2 in the office. Agree with medical management otherwise and I have nothing further to add at this time. Dora understands pancreatic cancer is a challenging diagnosis. I answered her questions and concerns at bedside this morning. Thank you very much for allowing me to participate in her care. If you have any questions or concerns, please feel free to contact me.
--- NOTE | 2020-08-27 18:17 | Discharge Summary ---
Date of Service August 27, 2020 Admission HPI Per Admitting Provider Dora Kirby is a 74-year-old female who presents to the ER via EMS from home with generalized weakness, ambulatory dysfunction, decreased appetite and poor oral intake. She reports her symptoms have been getting progressively worse for the last month but much worse in the last week with significant weight loss. Last night she fell in her bathroom and her spouse was able to get her back to bed. The patient reports being too weak to get off the toilet yesterday. She denies any chest pain, abdominal pain, fever, chills, urinary Sx, respiratory Sx, nausea, vomiting, constipation, diarrhea, bright red blood in stool or melena. She is chronically on 2L O2 as needed for exertion and at night and has a chronic cough at baseline. On EMS arrival the patient was hypotensive with blood pressure 82/58 with dried stool to bilateral legs. EMS reports poor living conditions. She has a significant history of Klebsiella sepsis due to cholangitis and cholecystitis in January 2020 requiring ERCP with biliary stent insertion and subsequent laparoscopic cholecystectomy. In the ER she was noted to be dehydrated with creatinine 2.54 from baseline 0.96. Given non-focal findings and weight loss over last month I advised ER provider to get CT chest/abdomen/pelvis without contrast to assess for metastatic source with elevated ALP out of proportion to over LFTs and normal lipase concerning for metastatic bone disease. This revealed biliary ductal dilatation and given history of Klebsiella sepsis with cholecystitis this is the most likely source of infection. Scarlet ordered and discussed care with Dr Hector Mclain from gastroenterology who requested MRCP for further evaluation. Principal Diagnosis Cholangitis with gram-negative bacteremia Pancreatic carcinoma with common bile duct stricture Common bile duct stricture status post stenting and sphincterotomy Discharge Exam The patient appeared well nourished and normally developed. Vital signs as documented. Head exam is normocephalic atraumatic Neck is without JVD, thyromegaly, or carotid bruits. Lungs are clear to auscultation, no focal loss of breath sounds Cardiac exam, Rhythm is regular.. No murmurs, rubs or gallops. Abdominal exam reveals normal bowel sounds, soft non tender, no masses Extremities are nonedematous and both pedal pulses are present Neurologic exam is alert and oriented, no focal loss of strength or sensation Skin is without bruises or rashes Psychologically is without concerns for anxiety or depression Discharge Data Allergies Allergy/AdvReac Type Severity Reaction Status Date / Time bacitracin Allergy Unknown EMACERATION Verified 08/22/20 14:42 SKIN AT SITE neomycin Allergy Unknown EMACERATION Verified 08/22/20 14:42 SKIN AT SITE polymyxin B Allergy Unknown EMACERATION Verified 08/22/20 14:42 SKIN AT SITE bupropion AdvReac Severe lips Verified 08/22/20 14:42 swelling Aminoglycosides AdvReac Intermediate SKIN Verified 08/22/20 14:42 IRRITATION Consultations 08/22/20 17:21 Consult Gastroenterology Routine 08/26/20 17:16 Consult Oncology Routine 08/27/20 10:40 Consult Health Information Management Routine Procedures Performed Operation Date: 08/23/20 08:00 Actual Procedures p Endoscopic Retrograde Cholangiopancreatogram with Biliary Stent Placement(Not Applicable) - Casey Couch MD s Endoscopic Ultrasonography Upper(Not Applicable) - Casey Couch MD Ordered Studies 08/22/20 12:53 CT head/brain wo con Stat 08/22/20 14:19 CT abd pelvis wo con Stat CT chest diagnostic wo con Stat 08/22/20 15:25 MR MRCP Urgent 08/23/20 14:45 FL ERCP biliary ductal Routine 08/23/20 14:52 US upper EUS PACS images Routine 08/25/20 15:01 CT pancreas 3-phase wo/w con Routine Hospital Course (1) Sepsis: Confirmed biliary source with elevated LFTs and cbd stricture found on ERCP, dilated and stent placed, purulence noted on ERCP 08/23/2020 blood cultures show pansensitive klebsiella changed to iv rocephin complete 2 week course for bacteremia Lactate 2.0, no need to repeat Klebsiella was reis sensitive, notable history of C. 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 The patient's reported pancreatic carcinoma is difficult to visualize on CT scanning. There is an equivocal 18 mm isodense pancreatic mass versus normal pancreatic lobulation located anterior to the common bile duct stent 2. No evidence of celiac or superior mesenteric artery encasement. The splenic and portal veins appear patent 3. No evidence of pancreatic ductal dilatation 4. No hepatic masses 5. Indwelling biliary enteric stent with pneumobilia 6. Borderline enlarged distal periesophageal lymph nodes Referral to tertiary center as an outpatient considering [facility] or [facility] records sent to both, consider outpt PET scan (3) Acute hypotension: Resolved (4) Acute cholangitis: ERCP shows cbd purulent drainage, continues on rocephin, based on blood cultures showing pansensitive Klebsiella (5) Biliary obstruction: MRCP IMPRESSION: 1. Prior cholecystectomy. There are numerous filling defects in the extrahepatic biliary tree with resultant intrahepatic and extrahepatic biliary ductal dilation. Findings are suggestive of choledocholithiasis versus hemobilia. 2. Numerous subcentimeter tiny cystic foci of the pancreas redemonstrated suggestive of sidebranch IPMN's. 3. No pancreatic ductal dilation ERCP with CBD stricture, stent placed pathology concerning for adenocarcinoma (6) Elevated liver enzymes: improved (7) Acute kidney injury: resolving with hydration and sessation of renal toxic meds No obstructive cause found on CT. (8) Lumbar spinal stenosis: Hold hydrocodone. iv Dilaudid and acetaminophen while NPO. (9) Nocturnal hypoxia: Usually on 2 L oxygen at night. Aim O2 sats > 94%. (10) DVT prophylaxis: Heparin 5000 units SQ twice daily Discharge Plan Discharge Items Patient Disposition: Home - Home Health Services Reason For Visit: SEPSIS, BILIARY OBSTRUCTION, ACUTE CHOLANGITIS Discharge Diagnosis: klebsiella bacteremia cholangitis, s/p common bile duct sweep and stent and sphincterotomy adenocarcinoma of biliary system Activity: Per Instructions section Lifting: Gradually increase as tolerated Non-emergency contact: Primary Care Provider, Medical Imaging Specialist and Oncologist Call non-emergency contact if: you have any medication questions, your symptoms worsen and you have a fever Follow-up/Referrals: Sherry Syed MD [Primary Care Provider] - 08/31/20 2:00 pm Diet: Low Fat Addtl Attending Provider Instructions: Please rest and hydrate well, watch for worsening temperatures or pain, be sure to follow up with DR Corona for futher workup Pending Studies at Discharge: No Stand-Alone Forms: [employer], Smoking Cessation Medications and DC Order Prescriptions: New Saccharomyces boulardii [Florastor] 250 mg Capsule 250 mg PO DAILY Qty: 30 RF: 0 ceftriaxone 2 gram recon soln 1 g IV DAILY Qty: 10 RF: 0 Continued gabapentin 300 mg capsule 300 mg PO HS Qty: 90 RF: 3 albuterol sulfate 90 mcg/actuation HFA aerosol inhaler 2 puff inhalation Q6H PRN (Reason: shortness of breath or wheezing) Qty: 8.5 RF: 5 nortriptyline 25 mg capsule 25 - 50 mg PO HS Qty: 60 RF: 5 amlodipine 5 mg tablet 5 mg PO DAILY Qty: 90 RF: 2 Anoro Ellipta 62.5-25 mcg/actuation blister with device 1 inh inhalation DAILY Qty: 60 RF: 3 hydrocodone-acetaminophen 10-325 mg tablet 2 tab PO Q6H MDD 8 tabs PRN (Reason: Pain) 30 Days Qty: 240 RF: 0 pantoprazole 40 mg tablet,delayed release (DR/EC) 40 mg PO DAILY Qty: 90 RF: 3 aspirin 81 mg tablet,delayed release (DR/EC) 81 mg PO UD RF: 0 vitamin E 100 unit capsule 100 units PO QAM RF: 0 cholecalciferol (vitamin D3) 25 mcg (1,000 unit) capsule 1,000 units PO QAM Qty: 90 RF: 0 PreserVision AREDS-2 [id number] Capsule 1 tab PO BID RF: 0 atorvastatin 20 mg tablet 20 mg PO HS RF: 0 metoprolol succinate 25 mg tablet extended release 24 hr 25 mg PO QAM RF: 0 garlic Tablet 1,000 mg PO PC RF: 0 ascorbic acid (vitamin C) 1,000 mg Tablet 1 g PO QAM RF: 0 [place]-3 350 mg-235 mg- 90 mg-597 mg Capsule,Delayed Release(Dr/Ec) 1 cap PO QAM RF: 0 Discontinued hydrochlorothiazide 25 mg tablet 25 mg PO DAILY Qty: 90 RF: 3 Discharge Orders: Discharge Order (Routine); Ordered 08/27/20 Ordered By: Demond Mcginnis Admission Data Admit Date/Time: 08/22/20 15:20 Attending Provider: Demond Mcginnis Admit Provider: Narayan Villalta Primary Care Provider: Sherry Syed Other Providers: Casey Couch ; [facility] ; [place] ; Tracie,Kulwant V. Other Interventions: Discharge Summary Assessment (RN) Last Done: 08/27/20 12:55 Coding Diagnoses Sepsis A41.9; R65.20; N17.9 Sepsis type: sepsis due to unspecified organism Sepsis acute organ dysfunction status: with acute organ dysfunction Severe sepsis acute organ dysfunction type: acute renal failure Acute renal failure type: unspecified Severe sepsis shock status: without septic shock Adenocarcinoma C80.1 Acute hypotension I95.9 Acute cholangitis K83.09 Biliary obstruction K83.1 Elevated liver enzymes R74.8 Acute kidney injury N17.9 Lumbar spinal stenosis M48.061 Nocturnal hypoxia G47.34 DVT prophylaxis Z29.9
== END 2020-08-27 13:18 | disposition home health service (06) | DRG 871 ==
LOC: ED 12:18 → 2S 15:20 → SUATTDRO 15:20 → 2S 16:00

== ENCOUNTER 2020-11-01 19:30 | Inpatient (IN) ==
[2020-11-01] MEDS ORDERED: SODIUM CHLORIDE 0.9% 500 ML IV ONE (20:57)
[2020-11-01] MEDS ORDERED: ACETAMINOPHEN 1,000 MG/100 ML VIAL IV STA (21:04)
[2020-11-01] MEDS ORDERED: MoRPHine SULFATE 2 MG/ML CARP IV STA (21:04)
[2020-11-01 21:16] LABS: Hematocrit (blood only) 28.5 % (37-47); Hemoglobin 9.2 g/dL (12.0-16.0); Immature Granulocytes # (auto) 0.03 K/uL (0.00-0.02); Immature Granulocytes % (auto) 0.5 %; Lymphocytes # (auto) 0.49 K/uL (1.2-3.4); Lymphocytes % (auto) 7.4 %; Mean Corpuscular Hgb Conc 32.3 g/dL (32-36); Mean Platelet Volume 9.5 fL (7.4-10.4); Monocytes # (auto) 0.08 K/uL (0.11-0.59); Monocytes % (auto) 1.2 %; Neutrophils # (auto) 5.98 K/uL (1.4-6.5); Neutrophils % (auto) 90.9 %; Platelet Count 173 K/uL (130-400); RDW Coefficient of Variation 14.4 % (11.5-14.5); RDW Standard Deviation 50.4 fL (36.4-46.3); Red Blood Count 2.97 M/uL (4.2-5.4); White Blood Count 6.58 K/uL (4.8-10.8)
[2020-11-01 21:25] LABS: Alanine Aminotransferase 27 U/L (12-78); Albumin Level 1.7 gm/dl (3.4-5.0); Aspartate Aminotransferase 76 U/L (15-37); BUN Creatinine Ratio 22.9 (10-20); Bilirubin Direct 1.9 mg/dl (0-0.2); Blood Urea Nitrogen 46 mg/dl (7-18); Calcium 8.4 mg/dl (8.5-10.1); Carbon Dioxide 29 mmol/L (21-32); Chloride 99 mmol/L (98-107); Est GFR (African American) 27.6 ml/min; Est GFR (Non-African American) 23.8 ml/min; Glucose 113 mg/dl (70-99); Lipase 87 U/L (73-393); Magnesium 1.2 mg/dl (1.8-2.4); Potassium 3.8 mmol/L (3.5-5.1); Sodium 134 mmol/L (136-145)
[2020-11-01 21:28] LABS: Albumin Globulin Ratio 0.4 (0.9-2); Alkaline Phosphatase 307 U/L (45-117); Bilirubin,Total 2.4 mg/dl (0.2-1); Creatine Kinase 43 U/L (26-192); Globulin 4.4 gm/dl (2.5-4.0); INR 1.1 (0.9-1.1); NT Pro B Type Natriuretic Pept 27328 pg/ml (0-1800); Partial Thromboplastin Ratio 1.2; Phosphorus 2.5 mg/dl (2.5-4.9); Prothrombin Time 11.4 Seconds (9.0-12.0); Total Protein 6.1 gm/dl (6.4-8.2); Troponin I < 0.015 ng/ml (0-0.045)
[2020-11-01] MEDS ORDERED: OPTIRAY 320 125ml IV ONE (23:17)
[2020-11-01] MEDS: MAGNESIUM SULFATE / D5W 1 GM/100 ML BAG IV SCH (23:30)
[2020-11-02] MEDS: MAGNESIUM SULFATE / D5W 1 GM/100 ML BAG IV SCH (00:17)
--- NOTE | 2020-11-02 00:22 | Emergency Department Note ---
Impression & Plan Pulmonary embolism, Transaminitis, Pancreatic adenocarcinoma, Hypomagnesemia ED Provider Note NAME: MADDIE BILLS AGE: 75 SEX: F ARRIVES VIA: Ambulance INFORMANT: Patient, ED PROVIDER(S): Reggie Valdez MD CHIEF COMPLAINT: Pancreatic cancer, weakness PLAN: Disposition: Admit MEDICAL DECISION MAKING: The patient is a pleasant 75-year-old woman with a past medical history of secondary polycythemia, recent diagnosis of pancreatic cancer in August 2020 which was discovered on ERCP here at [facility] by Dr. Khoa Wong upon evalua tion for suspected cholangitis where a 3 cm mass was seen and a metal stent was placed in the CBD with diagnosis of pancreatic adenocarcinoma.evidence of metastatic disease at that time but question of borderline enlarged lymph nodes near the GE junction who presents to the emergency department with worsening shortness of breath and generalized weakness over the past several days in the setting of receiving her first chemotherapy treatment last week. She reports she has been on oxygen as needed at night but has been more short of breath recently. She is reported chills but denies any objective fevers. Reports having diarrhea and having increased swelling in her legs this morning. She den ies any chest pain or abdominal pain but reports ongoing back pain for which she is on [place]. On arrival the patient is acute on chronically ill-appearing but no acute distress, afebrile, heart rate in the 110s and hypotensive 70s-90s/40s-60s that was fluid responsive with O2 saturation in the 70s on room air improved to the mid 90s on nasal cannula. On exam the patient has dry cracked mucous membranes. However she does have 3+ bilateral lower extremity pitting edema. She has diminished breath sounds of bilateral bases. Abdomen with mild epigastric discomfort without discrete tenderness. EKG without overt acute ischemia. CXR with right basilar densities and moderate left pleural effusion per my preliminary review. WBC and platelets within normal limits. H/H 9.2/20.5 decreased from 13/ last week however in the setting of receiving her first chemo treatment. Creatinine is 1.9 with BUN/creatinine> 20 suggestive of prerenal etiology. Patient's LFTs are newly elevated from recent with total bilirubin 2.4 and direct bilirubin 1.9 which may suggest obstruction of the patient's stent. AST and alk phos also elevated from recent at 76 and 307, respectively. Lipase is not elevated. Albumin is additionally low at 1.7 in the setting of chronic hypoalbuminemia in the setting of her cancer. Troponin negative/undetectable. BNP 42397, nonspecific and likely reflects component of pulmonary embolism which was seen on CT of the chest today as well as renal insufficiency. Procalcitonin 0.81. COVID-19 PCR was negative. Per preliminary stat read report, CTA of the chest demonstrates nonocclusive pulmonary emboli of the segmental branches of the right lower lobe. Note is made of nonocclusive pulmonary embolus of the segmental branch of the left upper lobe which is likely chronic. There is also evidence of aspiration. Moderate- sized left pleural effusion with associated atelectasis is also noted. CT of the abdomen pelvis demonstrates moderate intrahepatic biliary ductal d ilatation and dilation of the CBD with biliary stent in place which traverses the patent pancreatic head mass. The patient's elevated bilirubin may reflect biliary stent obstruction. Upon reevaluation the patient reported mild improvement in symptoms after gentle IV fluid hydration and initiation of magnesium repletion. I did review her findings with her at the bedside and she agreed with plan for admission. She denies any recent or prior history of GI bleeding. Lovenox per admitting team. Additionally, given evidence of aspiration as well as possible biliary obstruction she was treated empirically with Zosyn. Case was discussed with Dr. Walker, [facility] [place] hospitalist, who will evaluate the patient for admission. Triage Nursing notes reviewed and agree them. Prior medical records reviewed Vital Signs: reviewed and remarkable for hypotension. Differential diagnosis: Infection, dehydration, metabolic abnormality, hypo/hyperglycemia, electrolyte disturbance, anemia, hypoxia, cardiac sources, intracerebral event, toxicologic, neurologic, as well as other pathologies. ER treatment provided: See below. Diagnostics interpreted by me: ECG: SR, 98 bpm, PVCs, no overt ST elevation or depression. Cardiac Monitoring: An order for continuous cardiac monitoring was placed and demonstrated SR, 98 bpm, PVCs. Laboratory studies: See below Imaging studies: CXR: Right basilar densities and moderate left pleural effusion per my preliminary review. [facility] Preliminary Findings Only See Final Report For Complete Findings CTA CHEST: Nonocclusive pulmonary emboli of the segmental branches of the right lower lobe. Nonocclusive pulmonary embolus of the segmental branch of the left upper lobe appears chronic. There are filling defects of the bronchi of the right lower lobe, this could represent an aspiration. There is a moderate left pleural effusion with adjacent atelectasis. No consolidation. Heart size is upper lots of normal. No pathologically enlarged lymph nodes. No fracture. Numerous nodules are present throughout the thyroid gland, recommend correlation with prior imaging to ensure stability. Radiologist: Leilani Stevenson MD Study ready at 23:47 and initial results transmitted at 00:10 Communications: Clear Time Type Notes Call Doctor Pulmonary Embolism ---- Preliminary Findings Only See Final Report For Complete Findings CT ABDOMEN & PELVIS With Contrast: Moderate intrahepatic biliary ductal dilatation and dilation of the common bile duct. There is a biliary stent which traverses a pancreatic head mass. The remaining solid organs are within normal limit. No obstruction. No fracture. There is nonspecific body wall edema. Please see dedicated CTA chest report from the same day regarding the thoracic findings. Radiologist: Leilani Stevenson MD Study ready at 23:42 and initial results transmitted at 00:12 Consultation(s): Case was discussed with Dr. Walker, [facility] [place] hospitalist, who will evaluate the patient for admission. HPI: The patient is a pleasant 75-year-old woman with a past medical history of secondary polycythemia, recent diagnosis of pancreatic cancer in August 2020 which was discovered on ERCP here at [facility] by Dr. Khoa Wong upon evaluation for suspected cholangitis where a 3 cm mass was seen and a metal stent was placed in the CBD with diagnosis of pancreatic adenocarcinoma.evidence of metastatic disease at that time but question of borderline enlarged lymph nodes near the GE junction who presents to the emergency department with worsening shortness of breath and generalized weakness over the past several days in the setting of receiving her first chemotherapy treatment last week. She reports she has been on oxygen as needed at night but has been more short of breath recently. She is reported chills but denies any objective fevers. Reports having diarrhea and having increased swelling in her legs this morning. She denies any chest pain or abdominal pain but reports ongoing back pain for which she is on [place]. ROS: See above HPI for pertinent positives & negatives. A total of 10 systems reviewed and were otherwise negative. PAST MEDICAL HISTORY:See Below PAST SURGICAL HISTORY:See Below FAMILY HISTORY:See Below SOCIAL HISTORY:See Below HOME MEDICATIONS:See Below ALLERGIES:See Below VITALS:See Below PHYSICAL EXAMINATION: GENERAL: Awake, alert, acute on chronically-appearing, in no distress HENT: Normocephalic, atraumatic. Oropharynx with dry mucous membranes and otherwise unremarkable. EYES: Normal conjunctiva. Sclera non-icteric. NECK: Supple. No nuchal rigidity. FROM. No JVD. RESPIRATORY: Diminished breath sounds of bilateral bases. CARDIAC: Regular rate, normal rhythm. Extremities warm and well perfused. Pulses equal. ABDOMEN: Soft, non-distended. Abdomen with mild epigastric discomfort without d iscrete tenderness. No rebound or guarding. No masses. RECTAL: Deferred. MUSCULOSKELETAL: Chest examination reveals no tenderness. The back is symmetrical on inspection without obvious abnormality. There is no CVA tenderness to palpation. No joint edema. LOWER EXTREMITIES: Calves are equal size bilaterally and non-tender. 3+ bilateral lower extremity pitting edema. No discoloration. NEURO: Normal sensorium. No sensory or motor deficits noted. SKIN: No rash or jaundice noted. ED COURSE: Critical Care: I have personally spent greater than 45 minutes of critical care time in the direct management of this patient. This includes bedside care, interpretation of diagnostic studies, and testing, discussion with consultants, patient, and family members, and other required patient management activities. This 45 minutes is in excess of all separately billable procedures. Reggie Valdez MD Past Med/Surg History Medical History Acute kidney injury 08/2020 > resolved Asymptomatic PVCs Chronic obstructive pulmonary disease Chronic osteoarthritis Clostridium difficile diarrhea 2018 Dyslipidemia Hepatic steatosis Hyperparathyroidism, primary Hypertension Impaired fasting glucose Lumbar spinal stenosis Migraine Hx Nocturnal hypoxia 2L/min NC HS Nontoxic multinodular goiter Venous insufficiency Surgical History History of appendectomy History of cholecystectomy History of colonoscopy History of ERCP ERCP with Biliary Stent Placement, EUS (08/23/20): Grade view 1, MAC#3, ETT 7.0 at [facility] History of hip replacement R/L History of knee replacement Right Family History Daughter Family history of diabetes mellitus Other No pertinent family history Social History Smoking Status: Current every day smoker Tobacco Type: Cigarettes Age Started Using Tobacco: 18; packs per day: 0.5; Years Smoked: 55; Cigarettes Per Day: 5; Second Hand Exposure: Yes (SPOUSE SMOKES); Do You Dip or Chew Tobacco: No; Hx Alcohol Use: No Hx Substance Use: No Preferred Language: Peruvian Communication Ability: Effective Visual Impairment: No Limitations [employer] Required: No Beliefs That Will Affect Care: None marital status: Current Living Situation: Spouse current occupational status: retired 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 Feels Safe at Home: Yes Safety Concerns: Feels Safe At This Time Seatbelt Use: always Sunscreen Use: Yes Assistive Devices: Oxygen - Continuous and Walker Allergies Allergies Allergy/AdvReac Type Severity Reaction Status Date / Time bupropion Allergy Severe Lip Verified 11/01/20 21:12 swelling bacitracin Allergy Unknown Emaceration Verified 11/01/20 21:12 of skin at site neomycin Allergy Unknown Emaceration Verified 11/01/20 21:12 of skin at site polymyxin B Allergy Unknown Emaceration Verified 11/01/20 21:12 of skin at site Aminoglycosides AdvReac Intermediate Skin Verified 11/01/20 21:12 irritation Home Meds Home Medications Medication Instructions Recorded Confirmed Strang-3 1 cap PO QAM 09/25/18 11/01/20 ascorbic acid (vitamin C) 1 g PO QAM 09/25/18 11/01/20 vitamin E 100 unit capsule 100 units PO QAM 10/02/18 11/01/20 cholecalciferol (vitamin D3) 25 1,000 units PO QAM #90 cap 04/06/19 11/01/20 mcg (1,000 unit) capsule aspirin 81 mg tablet,delayed 81 mg PO Q2D 02/03/20 11/01/20 release PreserVision AREDS-2 1 tab PO BID 02/16/20 11/01/20 atorvastatin 20 mg PO HS 02/16/20 11/01/20 metoprolol succinate 25 mg PO QAM 03/11/20 11/01/20 garlic 1,000 mg PO QAM 04/09/20 11/01/20 Anoro Ellipta 1 inh INHALATION HS 10/20/20 11/01/20 Saccharomyces boulardii [Florastor] 250 mg PO QAM 10/20/20 11/01/20 amlodipine 5 mg PO QAM 10/20/20 11/01/20 hydrochlorothiazide 25 mg PO QAM 10/20/20 11/01/20 pantoprazole 40 mg PO QAM 10/20/20 11/01/20 ondansetron HCl 8 mg PO Q8H PRN 11/01/20 11/01/20 prochlorperazine maleate 10 mg PO Q6H PRN 11/01/20 11/01/20 Previous Rx's Medication Instructions Recorded gabapentin 300 mg capsule 300 mg PO HS #90 cap 02/02/20 albuterol sulfate 90 mcg/actuation 2 puff INHALATION Q6H PRN #8.5 g 02/27/20 aerosol inhaler nortriptyline 25 mg capsule 25 - 50 mg PO HS #60 cap 05/25/20 hydrocodone 10 mg-acetaminophen 2 tab PO Q6H PRN 30 Days #240 tab 10/29/20 325 mg tablet MDD 8 tabs Results & Data (ED) Vital Signs Vital Signs - 24 hr 11/01/20 19:42 11/01/20 20:36 11/01/20 20:45 Temperature 36.4 C L Temperature Source Temporal Artery Scan Pulse Rate 81 114 H Pulse Rate from SpO2 Sensor 80 91 H Respiratory Rate 16 36 H 18 Respiratory Depth Normal Blood Pressure 76/48 L 97/60 L Blood Pressure Mean 57 72 Blood Pressure Position Lying Pulse Oximetry 79 L 92 Oxygen Delivery Method Room Air Sepsis Recent Fever Within 48 Hours No Sepsis New/Unexplained Change in Mental Status No Sepsis Action Taken by Nursing No Action Required 11/01/20 20:50 11/01/20 21:00 11/01/20 21:14 Temperature Temperature Source Pulse Rate 70 Pulse Rate from SpO2 Sensor 96 H Respiratory Rate 17 Respiratory Depth Blood Pressure 104/53 L Blood Pressure Mean 70 Blood Pressure Position Pulse Oximetry 92 Oxygen Delivery Method Nasal Cannula Nasal Cannula Sepsis Recent Fever Within 48 Hours Sepsis New/Unexplained Change in Mental Status Sepsis Action Taken by Nursing 11/01/20 21:15 11/01/20 21:27 11/01/20 21:30 Temperature Temperature Source Pulse Rate 92 H 96 H 96 H Pulse Rate from SpO2 Sensor 97 H Respiratory Rate 18 14 16 Respiratory Depth Blood Pressure 98/58 L 102/66 108/64 Blood Pressure Mean 71 78 78 Blood Pressure Position Pulse Oximetry 93 Oxygen Delivery Method Sepsis Recent Fever Within 48 Hours Sepsis New/Unexplained Change in Mental Status Sepsis Action Taken by Nursing 11/01/20 21:45 11/01/20 22:00 11/01/20 22:15 Temperature Temperature Source Pulse Rate 91 H 92 H 88 Pulse Rate from SpO2 Sensor 92 H 92 H 88 Respiratory Rate 13 21 15 Respiratory Depth Blood Pressure 118/65 80/45 L 113/63 Blood Pressure Mean 82 56 79 Blood Pressure Position Pulse Oximetry 93 94 96 Oxygen Delivery Method Sepsis Recent Fever Within 48 Hours Sepsis New/Unexplained Change in Mental Status Sepsis Action Taken by Nursing 11/01/20 22:30 11/01/20 23:00 11/02/20 00:00 Temperature Temperature Source Pulse Rate 80 85 84 Pulse Rate from SpO2 Sensor 89 87 84 Respiratory Rate 13 15 15 Respiratory Depth Blood Pressure 113/64 108/55 L 96/53 L Blood Pressure Mean 80 72 67 Blood Pressure Position Pulse Oximetry 95 95 97 Oxygen Delivery Method Sepsis Recent Fever Within 48 Hours Sepsis New/Unexplained Change in Mental Status Sepsis Action Taken by Nursing 11/02/20 00:15 11/02/20 00:30 11/02/20 01:00 Temperature Temperature Source Pulse Rate 88 88 85 Pulse Rate from SpO2 Sensor 85 89 85 Respiratory Rate 20 17 14 Respiratory Depth Blood Pressure 103/56 L 105/62 107/64 Blood Pressure Mean 71 76 78 Blood Pressure Position Pulse Oximetry 94 95 94 Oxygen Delivery Method Sepsis Recent Fever Within 48 Hours Sepsis New/Unexplained Change in Mental Status Sepsis Action Taken by Nursing Laboratory Data Attestation: I reviewed the patient's lab results. Result diagrams: 11/01/20 20:41 11/01/20 20:41 Lab Results 11/01/20 11/01/20 11/01/20 Range/Units 20:41 20:41 20:41 WBC 6.58 (4.8-10.8) K/uL RBC 2.97 L (4.2-5.4) M/uL Hgb 9.2 L (12.0-16.0) g/dL Hct 28.5 L (37-47) % MCV 96.0 (80-100) fL MCH 31.0 (25-34) pg MCHC 32.3 (32-36) g/dL RDW Std Deviation 50.4 H (36.4-46.3) fL RDW Coeff of Deana 14.4 (11.5-14.5) % Plt Count 173 (130-400) K/uL MPV 9.5 (7.4-10.4) fL Immature Gran % (Auto) 0.5 % Neut % (Auto) 90.9 % Lymph % (Auto) 7.4 % Ford % (Auto) 1.2 % Eos % (Auto) 0.0 % Baso % (Auto) 0.0 % Neut # (Auto) 5.98 (1.4-6.5) K/uL Lymph # (Auto) 0.49 L (1.2-3.4) K/uL Ford # (Auto) 0.08 L (0.11-0.59) K/uL Eos # (Auto) 0.00 (0-0.5) K/uL Baso # (Auto) 0.00 (0-0.2) K/uL Immature Gran # (Auto) 0.03 H (0.00-0.02) K/uL PT 11.4 (9.0-12.0) Seconds INR 1.1 (0.9-1.1) APTT 31.0 (21.0-31.0) Seconds PTT Ratio 1.2 Sodium 134 L (136-145) mmol/L Potassium 3.8 (3.5-5.1) mmol/L Chloride 99 (98-107) mmol/L Carbon Dioxide 29 (21-32) mmol/L Anion Gap 6.0 (3-11) BUN 46 H (7-18) mg/dl Creatinine 1.99 H (0.6-1.2) mg/dl Est Cr Clr Drug Dosing Not Reportable Est GFR ( Amer) 27.6 ml/min Est GFR (Non-Af Amer) 23.8 ml/min BUN/Creatinine Ratio 22.9 H (10-20) Glucose 113 H (70-99) mg/dl Lactate (0.4-2.0) mmol/L Calcium 8.4 L (8.5-10.1) mg/dl Phosphorus 2.5 (2.5-4.9) mg/dl Magnesium 1.2 L (1.8-2.4) mg/dl Total Bilirubin 2.4 H (0.2-1) mg/dl Direct Bilirubin 1.9 H (0-0.2) mg/dl AST 76 H (15-37) U/L ALT 27 (12-78) U/L Alkaline Phosphatase 307 H (45-117) U/L Total Creatine Kinase 43 (26-192) U/L Troponin I < 0.015 (0-0.045) ng/ml NT-Pro-B Natriuret Pep 30651 H (0-1800) pg/ml Total Protein 6.1 L (6.4-8.2) gm/dl Albumin 1.7 L (3.4-5.0) gm/dl Globulin 4.4 H (2.5-4.0) gm/dl Albumin/Globulin Ratio 0.4 L (0.9-2) Lipase 87 (73-393) U/L Procalcitonin (0-0.5) ng/ml COVID-19 Eval Order SARS-CoV-2 (PCR) (Negative) 11/01/20 11/01/20 11/01/20 Range/Units 20:41 20:41 21:20 WBC (4.8-10.8) K/uL RBC (4.2-5.4) M/uL Hgb (12.0-16.0) g/dL Hct (37-47) % MCV (80-100) fL MCH (25-34) pg MCHC (32-36) g/dL RDW Std Deviation (36.4-46.3) fL RDW Coeff of Deana (11.5-14.5) % Plt Count (130-400) K/uL MPV (7.4-10.4) fL Immature Gran % (Auto) % Neut % (Auto) % Lymph % (Auto) % Ford % (Auto) % Eos % (Auto) % Baso % (Auto) % Neut # (Auto) (1.4-6.5) K/uL Lymph # (Auto) (1.2-3.4) K/uL Ford # (Auto) (0.11-0.59) K/uL Eos # (Auto) (0-0.5) K/uL Baso # (Auto) (0-0.2) K/uL Immature Gran # (Auto) (0.00-0.02) K/uL PT (9.0-12.0) Seconds INR (0.9-1.1) APTT (21.0-31.0) Seconds PTT Ratio Sodium (136-145) mmol/L Potassium (3.5-5.1) mmol/L Chloride (98-107) mmol/L Carbon Dioxide (21-32) mmol/L Anion Gap (3-11) BUN (7-18) mg/dl Creatinine (0.6-1.2) mg/dl Est Cr Clr Drug Dosing Est GFR ( Amer) ml/min Est GFR (Non-Af Amer) ml/min BUN/Creatinine Ratio (10-20) Glucose (70-99) mg/dl Lactate 1.4 (0.4-2.0) mmol/L Calcium (8.5-10.1) mg/dl Phosphorus (2.5-4.9) mg/dl Magnesium (1.8-2.4) mg/dl Total Bilirubin (0.2-1) mg/dl Direct Bilirubin (0-0.2) mg/dl AST (15-37) U/L ALT (12-78) U/L Alkaline Phosphatase (45-117) U/L Total Creatine Kinase (26-192) U/L Troponin I (0-0.045) ng/ml NT-Pro-B Natriuret Pep (0-1800) pg/ml Total Protein (6.4-8.2) gm/dl Albumin (3.4-5.0) gm/dl Globulin (2.5-4.0) gm/dl Albumin/Globulin Ratio (0.9-2) Lipase (73-393) U/L Procalcitonin (0-0.5) ng/ml COVID-19 Eval Order Covid19 at [facility] SARS-CoV-2 (PCR) NEGATIVE (Negative) 11/01/20 Range/Units 21:42 WBC (4.8-10.8) K/uL RBC (4.2-5.4) M/uL Hgb (12.0-16.0) g/dL Hct (37-47) % MCV (80-100) fL MCH (25-34) pg MCHC (32-36) g/dL RDW Std Deviation (36.4-46.3) fL RDW Coeff of Deana (11.5-14.5) % Plt Count (130-400) K/uL MPV (7.4-10.4) fL Immature Gran % (Auto) % Neut % (Auto) % Lymph % (Auto) % Ford % (Auto) % Eos % (Auto) % Baso % (Auto) % Neut # (Auto) (1.4-6.5) K/uL Lymph # (Auto) (1.2-3.4) K/uL Ford # (Auto) (0.11-0.59) K/uL Eos # (Auto) (0-0.5) K/uL Baso # (Auto) (0-0.2) K/uL Immature Gran # (Auto) (0.00-0.02) K/uL PT (9.0-12.0) Seconds INR (0.9-1.1) APTT (21.0-31.0) Seconds PTT Ratio Sodium (136-145) mmol/L Potassium (3.5-5.1) mmol/L Chloride (98-107) mmol/L Carbon Dioxide (21-32) mmol/L Anion Gap (3-11) BUN (7-18) mg/dl Creatinine (0.6-1.2) mg/dl Est Cr Clr Drug Dosing Est GFR ( Amer) ml/min Est GFR (Non-Af Amer) ml/min BUN/Creatinine Ratio (10-20) Glucose (70-99) mg/dl Lactate (0.4-2.0) mmol/L Calcium (8.5-10.1) mg/dl Phosphorus (2.5-4.9) mg/dl Magnesium (1.8-2.4) mg/dl Total Bilirubin (0.2-1) mg/dl Direct Bilirubin (0-0.2) mg/dl AST (15-37) U/L ALT (12-78) U/L Alkaline Phosphatase (45-117) U/L Total Creatine Kinase (26-192) U/L Troponin I (0-0.045) ng/ml NT-Pro-B Natriuret Pep (0-1800) pg/ml Total Protein (6.4-8.2) gm/dl Albumin (3.4-5.0) gm/dl Globulin (2.5-4.0) gm/dl Albumin/Globulin Ratio (0.9-2) Lipase (73-393) U/L Procalcitonin 0.81 H (0-0.5) ng/ml COVID-19 Eval Order SARS-CoV-2 (PCR) (Negative) Administered Medications Albumin Human (Albumin 25%) 12.5 gm in 50 mls @ 50 mls/hr IV Q1H THOMAS Stop: 11/02/20 07:06 Last Admin: 11/02/20 04:48 Dose: 50 mls/hr Documented by: [id number] Discontinued Medications Heparin Sodium/Dextrose (Heparin Iv Adult Wt-Based Standard *No* Bolus Protocol) 1 ea IV ONE ONE; Protocol Stop: 11/02/20 00:39 Last Admin: 11/02/20 00:58 Dose: Not Given Documented by: [id number] Sodium Chloride (Nss) 500 mls @ 999 mls/hr IV .Q31M ONE Stop: 11/01/20 21:27 Last Infusion: 11/01/20 21:57 Dose: 999 mls/hr Documented by: [id number] Admin: 11/01/20 21:18 Dose: 999 mls/hr Documented by: [id number] Acetaminophen (Ofirmev) 1,000 mg in 100 mls @ 400 mls/hr IV NOW STA Stop: 11/01/20 21:18 Last Infusion: 11/01/20 21:33 Dose: 400 mls/hr Documented by: [id number] Admin: 11/01/20 21:18 Dose: 400 mls/hr Documented by: [id number] Magnesium Sulfate/Dextrose (Magnesium Sulfate / D5w) 1 gm in 100 mls @ 100 mls/hr IV Q1H THOMAS Stop: 11/02/20 01:13 Last Infusion: 11/02/20 01:37 Dose: 0 mls/hr Documented by: [id number] Admin: 11/02/20 00:17 Dose: 100 mls/hr Documented by: [id number] Infusion: 11/02/20 00:17 Dose: 100 mls/hr Documented by: [id number] Admin: 11/01/20 23:30 Dose: 100 mls/hr Documented by: [id number] Piperacillin Sod/Tazobactam Sod (Zosyn) 4.5 gm in 120 mls @ 240 mls/hr IV NOW ONE Stop: 11/02/20 01:07 Last Infusion: 11/02/20 01:37 Dose: 0 mls/hr Documented by: [id number] Admin: 11/02/20 00:53 Dose: 240 mls/hr Documented by: [id number] Heparin Sodium/Dextrose (Heparin Sodium/Dextrose) 25,000 units in 500 mls @ 0.02 mls/hr IV .Q24H THOMAS; Protocol Stop: 12/02/20 00:54 Last Admin: 11/02/20 00:58 Dose: Not Given Documented by: [id number] Sodium Chloride (Nss) 500 mls @ 999 mls/hr IV .Q31M ONE Stop: 11/02/20 01:11 Last Admin: 11/02/20 01:00 Dose: Not Given Documented by: [id number] Sodium Chloride (Nss) 500 mls @ 125 mls/hr IV .Q4H THOMAS Stop: 12/02/20 00:44 Last Admin: 11/02/20 03:23 Dose: Not Given Documented by: [id number] Ioversol (Optiray 320 125ml) 120 ml IV ONCE ONE Stop: 11/01/20 23:18 Last Admin: 11/01/20 23:18 Dose: 120 ml Documented by: [id number] Morphine Sulfate (Morphine Sulfate 2 Mg/Ml Carp) 2 mg IV NOW STA Stop: 11/01/20 21:05 Last Admin: 11/01/20 21:19 Dose: 2 mg Documented by: [id number] Discharge Plan Visit Data Chief Complaint: Weakness Stated Complaint: WEAKNESS ED Provider: Reggie Valdez Discharge Problem: Pulmonary embolism, Transaminitis, Pancreatic adenocarcinoma, Hypomagnesemia Patient Disposition: Admitted As Inpatient Discharge Instructions Interventions: ED Discharge Assessment Last Done: 11/02/20 02:15
[2020-11-02] MEDS ORDERED: PIPERACILLIN/TAZOBACTAM 4.5 GM/120 ML BAG IV ONE (00:38)
[2020-11-02] MEDS ORDERED: PIPERACILL/TAZOBAC CONSULT ACTIVE PRN (00:38)
[2020-11-02] MEDS ORDERED: Heparin IV Adult Wt-Based Standard *NO* Bolus Protocol IV ONE ×2 (00:38→18:00)
[2020-11-02] MEDS ORDERED: SODIUM CHLORIDE 0.9% 500 ML IV ONE (00:41)
[2020-11-02] MEDS ORDERED: SODIUM CHLORIDE 0.9% 500 ML IV SCH (00:45)
[2020-11-02] MEDS ORDERED: HEPARIN SODIUM/DEXTROSE 25,000 UNITS/500 ML BAG IV SCH ×2 (00:55→18:00)
--- NOTE | 2020-11-02 01:31 | History & Physical Report ---
Date of Service November 02, 2020 Assessment & Plan (1) Pulmonary embolism, bilateral: CT angiography of chest demonstrating pulmonary emboli and right lower lobe and left upper lobe. Start Lovenox 1 mg kilogram subcu every 12 hours, which can be changed to 1.5 mg kilogram subcu every 24 hours tomorrow. Present on Admission?: Yes (2) Pancreatic adenocarcinoma: Patient reports she had her first chemotherapy last week, and was due for second chemotherapy on 11/02. We will consult Dr. Hodges Present on Admission?: Yes (3) Hypomagnesemia: Given magnesium sulfate replacement in the ED. Check a.m. laboratories Present on Admission?: Yes (4) Dyslipidemia: Continue atorvastatin Present on Admission?: Yes (5) Chronic obstructive pulmonary disease: DuoNebs every 2 hours as needed Present on Admission?: Yes (6) Hypertension: Continue amlodipine, aspirin and metoprolol succinate with hold parameters. Hold HCTZ due to ELIUD Present on Admission?: Yes (7) Acute kidney injury: Creatinine 1.99 upon admission, with base 1.09. Hold HCTZ NSS@80 mils per hour x1 L. Repeat laboratories in a.m. Present on Admission?: Yes History of Present Illness Chief Complaint: The patient presents to the emergency department with complaint of worsening shortness of breath and generalized weakness with decreased oral intake over the past several days Primary Care Provider: Sherry Syed MD The patient is a 75-year-old female with a past medical history including pancreatic adenocarcinoma, secondary polycythemia, asymptomatic PVCs, chronic osteoarthritis, primary hyperparathyroidism, COPD, dyslipidemia, hepatic steatosis, impaired fasting glucose, nontoxic multinodular goiter, venous insufficiency and hypertension. Patient underwent her first chemotherapy treatment for pancreatic cancer last week, and was due for a second treatment tomorrow. She presents with symptoms as noted above, and looks chronically debilitated and fatigued at this time. Allergies Allergy/AdvReac Type Severity Reaction Status Date / Time bupropion Allergy Severe Lip Verified 11/01/20 21:12 swelling bacitracin Allergy Unknown Emaceration Verified 11/01/20 21:12 of skin at site neomycin Allergy Unknown Emaceration Verified 11/01/20 21:12 of skin at site polymyxin B Allergy Unknown Emaceration Verified 11/01/20 21:12 of skin at site Aminoglycosides AdvReac Intermediate Skin Verified 11/01/20 21:12 irritation Home Medications Medication Instructions Recorded Confirmed Type Sho[place]-3 1 cap PO QAM 09/25/18 11/01/20 History ascorbic acid (vitamin C) 1 g PO QAM 09/25/18 11/01/20 History vitamin E 100 unit capsule 100 units PO QAM 10/02/18 11/01/20 History cholecalciferol (vitamin D3) 25 1,000 units PO QAM #90 cap 04/06/19 11/01/20 History mcg (1,000 unit) capsule gabapentin 300 mg capsule 300 mg PO HS #90 cap 02/02/20 11/01/20 Rx aspirin 81 mg tablet,delayed 81 mg PO Q2D 02/03/20 11/01/20 History release PreserVision AREDS-2 1 tab PO BID 02/16/20 11/01/20 History atorvastatin 20 mg PO HS 02/16/20 11/01/20 History albuterol sulfate 90 mcg/actuation 2 puff INHALATION Q6H PRN #8.5 g 02/27/20 11/01/20 Rx aerosol inhaler metoprolol succinate 25 mg PO QAM 03/11/20 11/01/20 History garlic 1,000 mg PO QAM 04/09/20 11/01/20 History nortriptyline 25 mg capsule 25 - 50 mg PO HS #60 cap 05/25/20 11/01/20 Rx Anoro Ellipta 1 inh INHALATION HS 10/20/20 11/01/20 History Saccharomyces boulardii [Florastor] 250 mg PO QAM 10/20/20 11/01/20 History amlodipine 5 mg PO QAM 10/20/20 11/01/20 History hydrochlorothiazide 25 mg PO QAM 10/20/20 11/01/20 History pantoprazole 40 mg PO QAM 10/20/20 11/01/20 History hydrocodone 10 mg-acetaminophen 2 tab PO Q6H PRN 30 Days #240 tab 10/29/20 11/01/20 Rx 325 mg tablet MDD 8 tabs ondansetron HCl 8 mg PO Q8H PRN 11/01/20 11/01/20 History prochlorperazine maleate 10 mg PO Q6H PRN 11/01/20 11/01/20 History Past Med/Surg History Medical History Acute kidney injury 08/2020 > resolved Asymptomatic PVCs Chronic obstructive pulmonary disease Chronic osteoarthritis Clostridium difficile diarrhea 2018 Dyslipidemia Hepatic steatosis Hyperparathyroidism, primary Hypertension Impaired fasting glucose Lumbar spinal stenosis Migraine Hx Nocturnal hypoxia 2L/min NC HS Nontoxic multinodular goiter Venous insufficiency Surgical History History of appendectomy History of cholecystectomy History of colonoscopy History of ERCP ERCP with Biliary Stent Placement, EUS (08/23/20): Grade view 1, MAC#3, ETT 7.0 at [facility] History of hip replacement R/L History of knee replacement Right Family History Daughter Family history of diabetes mellitus Other No pertinent family history Social History (Updated 10/20/20 @ 09:56 by Jenise Reddy RN) Smoking Status: Current every day smoker Tobacco Type: Cigarettes Age Started Using Tobacco: 18; packs per day: 0.5; Years Smoked: 55; Cigarettes Per Day: 5; Second Hand Exposure: Yes (SPOUSE SMOKES); Do You Dip or Chew Tobacco: No; Hx Alcohol Use: No Hx Substance Use: No Preferred Language: Romansh Communication Ability: Effective Visual Impairment: No Limitations 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: No Beliefs That Will Affect Care: None marital status: Current Living Situation: Spouse current occupational status: retired 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 Feels Safe at Home: Yes Safety Concerns: Feels Safe At This Time Seatbelt Use: always Sunscreen Use: Yes Assistive Devices: Oxygen - Continuous and Walker Review of Systems Review of Systems: The patient denies chest pain, palpitations, cough, lower extremity swelling, sore throat, fevers, chills, sweats, nausea, vomiting, diarrhea , constipation, blood in urine or stool, dysuria, urinary frequency or urgency, lightheadedness, dizziness, headache, memory loss, loss of consciousness, rash, abnormal bruising or bleeding, imbalance, focal weakness, numbness or tingling in arms or legs, generalized arthralgias or myalgias, back or neck pain, or night sweats. The review of systems is otherwise negative other than for that already noted above, and at least 10 systems have been reviewed. Physical Exam Physical Exam: The patient is awake, alert and oriented 3, appears chronically ill, normocephalic and atraumatic, lying in bed and in no acute distress. HEENT--PERRL, EOMI, mucous membranes and oropharynx dry. Neck--supple. No JVD. No bruits. Thyroid normal, trachea midline, no adenopathy. Heart--normal S1 and S2. No murmurs, rubs or gallops. Lungs--clear bilaterally, no respiratory distress, no accessory muscle use. Abdomen--normal bowel sounds and soft. Nontender. Nondistended. Extremities--no cyanosis or clubbing. No edema Dermatologic--skin is mildly dry Neurologic--cranial nerves II through XII grossly intact. Rheumatologic--limited exam Psychiatric--normal affect. Results & Data Results & Data ([facility]) Vital Signs (Past 12 Hours) Vital Signs Temp Pulse Resp BP Pulse Ox 11/01/20 23:00 85 15 108/55 L 95 11/01/20 22:30 80 13 113/64 95 11/01/20 22:15 88 15 113/63 96 11/01/20 22:00 92 H 21 80/45 L 94 11/01/20 21:45 91 H 13 118/65 93 11/01/20 21:30 96 H 16 108/64 93 11/01/20 21:27 96 H 14 102/66 11/01/20 21:15 92 H 18 98/58 L 11/01/20 21:00 70 17 104/53 L 92 11/01/20 20:45 114 H 18 97/60 L 92 11/01/20 20:36 36 H 11/01/20 19:42 97.5 F L 81 16 76/48 L 79 L Laboratory Results Laboratory Results WBC 6.58 K/uL (4.8-10.8) 11/01/20 20:41 RBC 2.97 M/uL (4.2-5.4) L 11/01/20 20:41 Hgb 9.2 g/dL (12.0-16.0) L 11/01/20 20:41 Hct 28.5 % (37-47) L 11/01/20 20:41 MCV 96.0 fL (80-100) 11/01/20 20:41 MCH 31.0 pg (25-34) 11/01/20 20:41 MCHC 32.3 g/dL (32-36) 11/01/20 20:41 RDW Std Deviation 50.4 fL (36.4-46.3) H 11/01/20 20:41 RDW Coeff of Deana 14.4 % (11.5-14.5) 11/01/20 20:41 Plt Count 173 K/uL (130-400) 11/01/20 20: MPV 9.5 fL (7.4-10.4) 11/01/20 20:41 Immature Gran % (Auto) 0.5 % 11/01/20 20: Neut % (Auto) 90.9 % 11/01/20 20: Lymph % (Auto) 7.4 % 11/01/20 20: [place] % (Auto) 1.2 % 11/01/20 20: Eos % (Auto) 0.0 % 11/01/20 20: Baso % (Auto) 0.0 % 11/01/20 20: Neut # (Auto) 5.98 K/uL (1.4-6.5) 11/01/20 20:41 Lymph # (Auto) 0.49 K/uL (1.2-3.4) L 11/01/20 20:41 [place] # (Auto) 0.08 K/uL (0.11-0.59) L 11/01/20 20:41 Eos # (Auto) 0.00 K/uL (0-0.5) 11/01/20 20: Baso # (Auto) 0.00 K/uL (0-0.2) 11/01/20 20:41 Immature Gran # (Auto) 0.03 K/uL (0.00-0.02) H 11/01/20 20:41 PT 11.4 Seconds (9.0-12.0) 11/01/20 20: INR 1.1 (0.9-1.1) 11/01/20 20:41 APTT 31.0 Seconds (21.0-31.0) 11/01/20 20:41 PTT Ratio 1.2 11/01/20 20: Sodium 134 mmol/L (136-145) L 11/01/20 20:41 Potassium 3.8 mmol/L (3.5-5.1) 11/01/20 20:41 Chloride 99 mmol/L (98-107) 11/01/20 20:41 Carbon Dioxide 29 mmol/L (21-32) 11/01/20 20:41 Anion Gap 6.0 (3-11) 11/01/20 20:41 BUN 46 mg/dl (7-18) H 11/01/20 20:41 Creatinine 1.99 mg/dl (0.6-1.2) H 11/01/20 20:41 Est Cr Clr Drug Dosing Not Reportable 11/01/20 20:41 Est GFR ( Amer) 27.6 ml/min 11/01/20 20:41 Est GFR (Non-Af Amer) 23.8 ml/min 11/01/20 20:41 BUN/Creatinine Ratio 22.9 (10-20) H 11/01/20 20:41 Glucose 113 mg/dl (70-99) H 11/01/20 20:41 Lactate 1.4 mmol/L (0.4-2.0) 11/01/20 21:20 Calcium 8.4 mg/dl (8.5-10.1) L 11/01/20 20:41 Phosphorus 2.5 mg/dl (2.5-4.9) 11/01/20 20:41 Magnesium 1.2 mg/dl (1.8-2.4) L 11/01/20 20:41 Total Bilirubin 2.4 mg/dl (0.2-1) H 11/01/20 20:41 Direct Bilirubin 1.9 mg/dl (0-0.2) H 11/01/20 20:41 AST 76 U/L (15-37) H 11/01/20 20:41 ALT 27 U/L (12-78) 11/01/20 20:41 Alkaline Phosphatase 307 U/L (45-117) H 11/01/20 20:41 Total Creatine Kinase 43 U/L (26-192) 11/01/20 20:41 Troponin I < 0.015 ng/ml (0-0.045) 11/01/20 20:41 NT-Pro-B Natriuret Pep 94616 pg/ml (0-1800) H 11/01/20 20:41 Total Protein 6.1 gm/dl (6.4-8.2) L 11/01/20 20:41 Albumin 1.7 gm/dl (3.4-5.0) L 11/01/20 20:41 Globulin 4.4 gm/dl (2.5-4.0) H 11/01/20 20:41 Albumin/Globulin Ratio 0.4 (0.9-2) L 11/01/20 20:41 Lipase 87 U/L (73-393) 11/01/20 20:41 Procalcitonin 0.81 ng/ml (0-0.5) H 11/01/20 21:42 COVID-19 Eval Order Covid19 at [facility] 11/01/20 20:41 SARS-CoV-2 (PCR) NEGATIVE (Negative) 11/01/20 20:41 Code Status & VTE Plan Code Status DNR/DNI VTE Prophylaxis Plan VTE Prophylaxis will be ordered: Yes PG Care Time/CCT Total # of Minutes Spent Total Time Spent with Patient: Total time spent is greater than 50% in coordination of care (as documented) at patient's floor/unit and/or counseling patient: Coding Level of Care Code 60806 Initial Inpt Care Lvl 3 Diagnoses Pulmonary embolism, bilateral I26.99 Pancreatic adenocarcinoma C25.9 Hypomagnesemia E83.42 Dyslipidemia E78.5 Chronic obstructive pulmonary disease J44.9 COPD type: unspecified COPD Hypertension I10 Hypertension type: unspecified Acute kidney injury N17.9 (1) Chronic obstructive pulmonary disease COPD type: unspecified COPD Qualified Code(s): J44.9 - Chronic obstructive pulmonary disease, unspecified (2) Hypertension Hypertension type: unspecified Qualified Code(s): I10 - Essential (primary) hypertension
[2020-11-02] MEDS ORDERED: ONDANSETRON 4 MG OD TAB PO PRN (03:07)
[2020-11-02] MEDS ORDERED: ONDANSETRON INJ 2 MG/ML 2 ML VIAL IV PRN ×2 (03:07→15:16)
[2020-11-02] MEDS ORDERED: HEPARIN 100 UNIT/ML 5ML FLUSH FLUSH PRN (04:31)
[2020-11-02] MEDS: ALBUMIN 25% 12.5 GM/50 ML VIAL IV SCH ×4 (04:48→07:30)
[2020-11-02] MEDS ORDERED: ENOXAPARIN 80 MG/0.8 ML SYR SQ SCH (06:00)
[2020-11-02] MEDS: PIPERACILLIN/TAZOBACTAM 3.375 GM in DEXTROSE 5% 100 ML IV SCH ×2 (06:10→06:24)
--- NOTE | 2020-11-02 07:19 | CT Scan Report ---
CT angio chest PE protocol HISTORY: 75 years-old Female with sob, panc ca, PE. Acute shortness of breath in a patient with his tory of pancreatic carcinoma TECHNIQUE: Multiple CTA images of the chest were obtained after the intravenous administration of 120 ml Optiray. Coronal and sagittal MIPS were obtained from the axial data set and were submitted for review. All measurements were obtained according to NASCET criteria. A dose lowering technique was u tilized adhering to the principles of ALARA. COMPARISON: CT abdomen and pelvis of same day, PET CT 09/08/2020 FINDINGS: CTA: The heart is moderately enlarged. Extensive coronary artery calcifications. No pericardial effusion. Extensive atherosclerotic plaque of the thoracic aorta. No aneurysm or dissection. The pulmonary marleny rial tree is opacified to level of the subsegmental branches. Linear nonocclusive filling defects are present within segmental and subsegmental branches of the right lower and middle lobes with partiall y occlusive segmental and subsegmental pulmonary emboli of the left lower lobe. Linear nonocclusive p ulmonary emboli of the left upper lobe. The nonocclusive emboli are likely chronic. CT CHEST: Multinodular thyroid goiter with numerous peripherally calcified nodules. Left subclavian Infuse-a-Po rt catheter distal tip terminates within the SVC. There is increased size of the previously described enlarged periesophageal lymph nodes, now largest measuring 2.3 x 1.9 cm, previously 1.6 x 1.1 cm. Trace right and moderate left pleural effusions. Mild dependent subsegmental right lung base opacitie s with atelectasis, consolidation or volume loss within the left lower lobe. There are no suspicious pulmonary nodules or masses. Tracheobronchial secretions with bibasilar mucous plugging. Unremarkable soft tissues. No acute fracture. IMPRESSION: 1. Segmental and subsegmental bilateral pulmonary emboli as above. Partially occlusive emboli within the left lower lobe is favored to be acute. 2. Moderate left and trace right pleural effusions. 3. Atelectasis with volume loss of the left lower lobe. 4. Tracheobronchial secretions with bronchial wall thickening and bibasilar mucous plugging. Correlat e clinically to exclude aspiration. 5. Increased size of the previously described periesophageal lymph nodes, suspicious for metastatic d isease. ACT 112: Negative or not required by law. The above report was generated using voice recognition software. It may contain grammatical, syntax o r spelling errors. Electronically signed by: Manan Mendes M.D. 11/02/2020 7:18 AM
[2020-11-02] MEDS: ASPIRIN 81 MG ECTAB PO SCH (07:28)
[2020-11-02] MEDS: PANTOprazole 40 MG TAB PO SCH (07:28)
[2020-11-02] MEDS: CHOLECALCIFEROL 1,000 UNITS 25 MCG TAB PO SCH (07:29)
[2020-11-02] MEDS: ASCORBIC ACID 500 MG TAB PO SCH (07:29)
[2020-11-02 07:30] LABS: Hematocrit (blood only) 26.3 % (37-47); Hemoglobin 8.6 g/dL (12.0-16.0); Mean Corpuscular Hemoglobin 30.9 pg (25-34); Mean Corpuscular Hgb Conc 32.7 g/dL (32-36); Mean Corpuscular Volume 94.6 fL (80-100); Mean Platelet Volume 9.2 fL (7.4-10.4); Platelet Count 130 K/uL (130-400); RDW Coefficient of Variation 14.2 % (11.5-14.5); Red Blood Count 2.78 M/uL (4.2-5.4); White Blood Count 4.91 K/uL (4.8-10.8)
[2020-11-02 07:39] LABS: INR 1.2 (0.9-1.1); Prothrombin Time 12.1 Seconds (9.0-12.0)
[2020-11-02 07:47] LABS: Immature Granulocytes # (auto) 0.04 K/uL (0.00-0.02); Immature Granulocytes % (auto) 0.8 %; Lymphocytes # (auto) 0.26 K/uL (1.2-3.4); Lymphocytes % (auto) 5.3 %; Monocytes # (auto) 0.05 K/uL (0.11-0.59); Neutrophils # (auto) 4.56 K/uL (1.4-6.5); Neutrophils % (auto) 92.9 %
--- NOTE | 2020-11-02 07:57 | XRay Report ---
XR chest 1V portable HISTORY: Atypical Chest Pain COMPARISON: Chest 10/21/2020. FINDINGS: Moderate left and trace right pleural effusions are again noted. A left subclavian Port-A-C ath terminates at the proximal SVC. No pneumothorax. Left basilar densities persist. No evidence for pulmonary edema. Degenerative changes again noted within the shoulders. IMPRESSION: No significant change in the bilateral pleural effusions and left basilar densities. ACT 112: Negative or not required by law. Electronically signed by: Kishor Taylor M.D. 11/02/2020 7:55 AM
[2020-11-02] MEDS ORDERED: SODIUM CHLORIDE 0.9% 1000ML 500 ML IV ONE (07:59)
[2020-11-02 08:09] LABS: BUN Creatinine Ratio 23.6 (10-20); Calcium 8.5 mg/dl (8.5-10.1); Creatinine Clr Calc Pharmacy 26.7 ml/min; Est GFR (Non-African American) 27.6 ml/min; Potassium 3.4 mmol/L (3.5-5.1)
[2020-11-02 08:12] LABS: Albumin Globulin Ratio 0.5 (0.9-2); Bilirubin,Total 2.5 mg/dl (0.2-1); Globulin 3.9 gm/dl (2.5-4.0); Total Protein 5.9 gm/dl (6.4-8.2)
--- NOTE | 2020-11-02 08:27 | CT Scan Report ---
ABDOMEN AND PELVIS CT WITH IV CONTRAST CT DOSE: 772.77 mGy.cm HISTORY: Diarrhea. Weakness. Pancreatic cancer. TECHNIQUE: Multiaxial CT images of the abdomen and pelvis were performed following the use of intrave nous contrast. A dose lowering technique was utilized adhering to the principles of ALARA. COMPARISON STUDY: CT pancreas 08/25/2020. Abdomen and pelvis CT 08/22/2020. FINDINGS: Small to moderate left pleural effusion has increased in size. Consolidation of the left lo wer lobe favors compressive atelectasis from the pleural effusion. No pneumoperitoneum. No pneumatosi s. There are bilateral total hip arthroplasties. No suspicious lytic or blastic osseous lesions. A me tallic common bile duct stent appears in good position. No pneumobilia identified this time. There is moderate intrahepatic bile duct dilatation which is similar to the prior study. A biliary stent rani erses an ill-defined pancreatic head mass. The main portal vein is patent. A few punctate calcificati ons within the pancreas. The spleen, adrenal glands, and kidneys are within normal limits. No hydrone phrosis. Questionable gastric wall thickening which is likely due to underdistention. No retroperiton eal lymphadenopathy. Calcified plaque within the normal caliber abdominal aorta. Deep pelvic structur es including the bladder are not well visualized due to metallic artifact from the bilateral hip pros theses. However, no significant abnormality within the pelvis. No bowel wall thickening or obstructio n. Mild body wall edema. The heart is mildly enlarged. IMPRESSION: 1. There is again noted a common bile duct stent which traverses an ill-defined pancreatic head mass. The stent is completely filled with fluid. There is moderate intrahepatic bile duct dilatation which is likely similar to the prior study. However, there is no pneumobilia at this time. Recommend corre lation with LFTs to exclude the possibility of an obstructive process.. 2. No evidence for bowel obstruction. 3. Small to moderate left pleural effusion has increased in size. 4. Questionable gastric wall thickening. This may be due to underdistention. ACT 112: Negative or not required by law. Electronically signed by: Kishor Taylor M.D. 11/02/2020 8:26 AM
[2020-11-02] MEDS: HYDROcodone/ACETAMINOPHEN 10/325 TAB PO PRN (08:38)
[2020-11-02] MEDS ORDERED: amLODIPine BESYLATE 5 MG TAB PO SCH (09:00)
[2020-11-02] MEDS ORDERED: TOCOPHERYL, DL-ALPHA 100 UNITS CAP PO SCH (09:00)
[2020-11-02] MEDS ORDERED: hydroCHLOROthiazide 25 MG TAB PO SCH (09:00)
[2020-11-02] MEDS ORDERED: SACCHAROMYCES BOULARDII 250 MG CAP PO SCH (09:00)
[2020-11-02] MEDS ORDERED: METOPROLOL SUCC 25MG EXT REL TAB PO SCH (09:00)
[2020-11-02] MEDS ORDERED: OMEGA-3 (PURIFIED FISH OIL) 1 GM CAP PO SCH (09:00)
[2020-11-02] MEDS ORDERED: CEROVITE ADV FORMULA TAB PO SCH (09:00)
[2020-11-02] MEDS ORDERED: NON-FORMULARY MEDICATION (Garlic Tablet) PO SCH (09:00)
[2020-11-02] MEDS: metroNIDAZOLE 500 MG/100 ML BAG IV SCH ×2 (09:11→17:02)
[2020-11-02] MEDS: SODIUM CHLORIDE 0.9% 1000ML 1,000 ML IV SCH ×2 (09:11→18:14)
--- NOTE | 2020-11-02 09:14 | Gastrointestinal Consultation ---
Date of Consultation November 02, 2020 Assessment & Plan (1) Pancreatic adenocarcinoma: 75 year old female with w/ panc cancer s/p EUS/ERCP in August w/ CBD stent placed, metal, admitted with weakness, SOB. New bilateral PEs on imaging but also note of fluid filled CBD, elevated LFTs and fevers overnight despite ABX. This AM she is febrile, hypotensive and tachycardic. Keep NPO Continue on IV ABX TigerText sent to licensed occupational therapist biliary team Dr. Couch and Dr. Mclain Needs ERCP today Appreciate ongoing management of hypotension per primary team until ERCP is completed Consider transfer to PCU/ICU if persistent hypotension Thank you for allowing us to participate in the care of this patient. Please call with any acute changes, questions or concerns. Please see addendum below with additional recommendation from my supervising physician. Supervising Physician Co-Signing Physician Notes Patient with a history of pancreatic cancer s/p metal biliary stent placement in 09/10 admitted overnite with findings of fever and a bump in lft's. Also with sob, found to have pe's on lovenox and elevated bnp. PE - alert and oriented, resp- no accessory use of respiratory muscles of respiration, Abd - slightly ttp Labs reviewed- slight bump in alt/alk phos and tb On Cefipime, Flagyl, she is noted to be hypotensive and tachycardic Imaging reviewed- biliary stent with ? fluid in the cbd stent On Lovenox. Continue abx, potential ercp today. History of Present Illness Reason for Consultation: elevated LFTs, CBD stent, fever, hx panc CA Requesting Physician: Rk Attending Physician: Jessica Beckman MD History of Present Illness 75 year old female with history of pancreatic adenocarcinoma on chemotherapy, secondary polycythemia, asymptomatic PVCs, chronic osteoarthritis, primary hyper parathyroidism, COPD, dyslipidemia, hepatic steatosis, impaired fasting glucose, nontoxic multinodular goiter, venous insufficiency and hypertension who presented to the ED w/ weakness, SOB admitted w/ bilateral pulmonary embolism, elevated BNP. GI asked to evaluate given CT findings showing "fluid in CBD stent" and rising LFTs. She was started on IV ABX in the ED. This AM hypotensive, tachycardic and febrile. Her LFTs have bumped overnight Pt notes generalized upper abd pain, explained as fullness and discomfort for 3/4 days. No nausea, vomiting. No appetite. Denies black/bloody stools. CTAP 2020: there is again noted a common bile duct stent which traverses an ill- defined pancreatic head mass. The stent is completely filled with fluid. There is moderate intrahepatic bile duct dilatation which is likely similar to the prior study. However, there is no pneumobilia at this time. Recommend correlation with LFTs to exclude the possibility of an obstructive process.. 2. No evidence for bowel obstruction. 3. Small to moderate left pleural effusion has increased in size. 4. Questionable gastric wall thickening. This may be due to underdistention. Allergies Allergy/AdvReac Type Severity Reaction Status Date / Time bupropion Allergy Severe Lip Verified 11/01/20 21:12 swelling bacitracin Allergy Unknown Emaceration Verified 11/01/20 21:12 of skin at site neomycin Allergy Unknown Emaceration Verified 11/01/20 21:12 of skin at site polymyxin B Allergy Unknown Emaceration Verified 11/01/20 21:12 of skin at site Aminoglycosides AdvReac Intermediate Skin Verified 11/01/20 21:12 irritation Home Medications Medication Instructions Recorded Confirmed Type Coventry-3 1 cap PO QAM 09/25/18 11/01/20 History ascorbic acid (vitamin C) 1 g PO QAM 09/25/18 11/01/20 History vitamin E 100 unit capsule 100 units PO QAM 10/02/18 11/01/20 History cholecalciferol (vitamin D3) 25 1,000 units PO QAM #90 cap 04/06/19 11/01/20 History mcg (1,000 unit) capsule gabapentin 300 mg capsule 300 mg PO HS #90 cap 02/02/20 11/01/20 Rx aspirin 81 mg tablet,delayed 81 mg PO Q2D 02/03/20 11/01/20 History release PreserVision AREDS-2 1 tab PO BID 02/16/20 11/01/20 History atorvastatin 20 mg PO HS 02/16/20 11/01/20 History albuterol sulfate 90 mcg/actuation 2 puff INHALATION Q6H PRN #8.5 g 02/27/20 11/01/20 Rx aerosol inhaler metoprolol succinate 25 mg PO QAM 03/11/20 11/01/20 History garlic 1,000 mg PO QAM 04/09/20 11/01/20 History nortriptyline 25 mg capsule 25 - 50 mg PO HS #60 cap 05/25/20 11/01/20 Rx Anoro Ellipta 1 inh INHALATION HS 10/20/20 11/01/20 History Saccharomyces boulardii [Florastor] 250 mg PO QAM 10/20/20 11/01/20 History amlodipine 5 mg PO QAM 10/20/20 11/01/20 History hydrochlorothiazide 25 mg PO QAM 10/20/20 11/01/20 History pantoprazole 40 mg PO QAM 10/20/20 11/01/20 History hydrocodone 10 mg-acetaminophen 2 tab PO Q6H PRN 30 Days #240 tab 10/29/20 11/01/20 Rx 325 mg tablet MDD 8 tabs ondansetron HCl 8 mg PO Q8H PRN 11/01/20 11/01/20 History prochlorperazine maleate 10 mg PO Q6H PRN 11/01/20 11/01/20 History Patient History Medical History Acute kidney injury 08/2020 > resolved Asymptomatic PVCs Chronic obstructive pulmonary disease Chronic osteoarthritis Clostridium difficile diarrhea 2018 Dyslipidemia Hepatic steatosis Hyperparathyroidism, primary Hypertension Impaired fasting glucose Lumbar spinal stenosis Migraine Hx Nocturnal hypoxia 2L/min NC HS Nontoxic multinodular goiter Venous insufficiency Surgical History History of appendectomy History of cholecystectomy History of colonoscopy History of ERCP ERCP with Biliary Stent Placement, EUS (08/23/20): Grade view 1, MAC#3, ETT 7.0 at [facility] History of hip replacement R/L History of knee replacement Right Family History Daughter Family history of diabetes mellitus Other No pertinent family history Social History Smoking Status: Current every day smoker Tobacco Type: Cigarettes Age Started Using Tobacco: 18; packs per day: 0.5; Years Smoked: 55; Cigarettes Per Day: 5; Second Hand Exposure: Yes (SPOUSE SMOKES); Do You Dip or Chew Tobacco: No; Hx Alcohol Use: No Hx Substance Use: No Preferred Language: Yakut Communication Ability: Effective Visual Impairment: No Limitations Manager Floral Required: No Beliefs That Will Affect Care: None marital status: Current Living Situation: Spouse current occupational status: retired 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 Feels Safe at Home: Yes Safety Concerns: Feels Safe At This Time Seatbelt Use: always Sunscreen Use: Yes Assistive Devices: Oxygen - Continuous and Walker Review of Systems Review of Systems: All systems reviewed & are unremarkable except as noted in HPI & below Physical Exam Constitutional: + ill appearing (chronically ill), + thin, + frail appearing, cooperative and comfortable; no acute distress, not disheveled and not in distress Neck: trachea midline, no thyromegaly Respiratory: normal respiratory effort, lungs clear to auscultation Cardiovascular: Rate/Rhythm: regular rhythm and + tachycardic Heart Sounds: normal S1; no click, no gallop, no murmur and no cardiac rub Gastrointestinal (Abdomen): Inspection/Auscultation: normal bowel sounds; abdomen not distended Percussion/Palpation: + abdomen tender (ruq pain) and abdomen soft; no guarding, abdomen not rigid, no abdominal mass and no ascites Skin: no rashes, warm and dry Results & Data ([facility]) Vital Signs (Past 12 Hours) Vital Signs Temp Pulse Pulse Resp BP BP Pulse Ox 11/02/20 07:36 37.8 C H 112 H 20 89/47 L 90 11/02/20 03:07 37.0 C 92 H 16 120/64 91 11/02/20 02:15 81 20 101/58 L 95 11/02/20 01:30 88 14 105/62 96 11/02/20 01:00 85 14 107/64 94 11/02/20 00:30 88 17 105/62 95 11/02/20 00:15 88 20 103/56 L 94 11/02/20 00:00 84 15 96/53 L 97 11/01/20 23:00 85 15 108/55 L 95 11/01/20 22:30 80 13 113/64 95 11/01/20 22:15 88 15 113/63 96 11/01/20 22:00 92 H 21 80/45 L 94 11/01/20 21:45 91 H 13 118/65 93 11/01/20 21:30 96 H 16 108/64 93 07/12/21 21:27 96 H 14 102/66 11/01/20 21:15 92 H 18 98/58 L Pulse Ox 11/02/20 07:36 11/02/20 03:07 91 11/02/20 02:15 11/02/20 01:30 11/02/20 01:00 11/02/20 00:30 11/02/20 00:15 11/02/20 00:00 11/01/20 23:00 11/01/20 22:30 11/01/20 22:15 11/01/20 22:00 11/01/20 21:45 11/01/20 21:30 11/01/20 21:27 11/01/20 21:15 Laboratory Results 11/02/20 11/02/20 11/02/20 Range/Units 06:52 06:52 06:52 WBC 4.91 (4.8-10.8) K/uL RBC 2.78 L (4.2-5.4) M/uL Hgb 8.6 L (12.0-16.0) g/dL Hct 26.3 L (37-47) % MCV 94.6 (80-100) fL MCH 30.9 (25-34) pg MCHC 32.7 (32-36) g/dL RDW Std Deviation 49.0 H (36.4-46.3) fL RDW Coeff of Deana 14.2 (11.5-14.5) % Plt Count 130 (130-400) K/uL MPV 9.2 (7.4-10.4) fL Immature Gran % (Auto) 0.8 % Neut % (Auto) 92.9 % Lymph % (Auto) 5.3 % [place] % (Auto) 1.0 % Eos % (Auto) 0.0 % Baso % (Auto) 0.0 % Neut # (Auto) 4.56 (1.4-6.5) K/uL Lymph # (Auto) 0.26 L (1.2-3.4) K/uL [place] # (Auto) 0.05 L (0.11-0.59) K/uL Eos # (Auto) 0.00 (0-0.5) K/uL Baso # (Auto) 0.00 (0-0.2) K/uL Immature Gran # (Auto) 0.04 H (0.00-0.02) K/uL PT 12.1 H (9.0-12.0) Seconds INR 1.2 H (0.9-1.1) APTT (21.0-31.0) Seconds PTT Ratio Sodium 134 L (136-145) mmol/L Potassium 3.4 L (3.5-5.1) mmol/L Chloride 99 (98-107) mmol/L Carbon Dioxide 29 (21-32) mmol/L Anion Gap 6.0 (3-11) BUN 42 H (7-18) mg/dl Creatinine 1.76 H (0.6-1.2) mg/dl Est Cr Clr Drug Dosing 26.7 Est GFR ( Amer) 32.0 ml/min Est GFR (Non-Af Amer) 27.6 ml/min BUN/Creatinine Ratio 23.6 H (10-20) Glucose 86 (70-99) mg/dl Lactate (0.4-2.0) mmol/L Calcium 8.5 (8.5-10.1) mg/dl Phosphorus (2.5-4.9) mg/dl Magnesium (1.8-2.4) mg/dl Total Bilirubin 2.5 H (0.2-1) mg/dl Direct Bilirubin (0-0.2) mg/dl AST 65 H (15-37) U/L ALT 27 (12-78) U/L Alkaline Phosphatase 278 H (45-117) U/L Total Creatine Kinase (26-192) U/L Troponin I (0-0.045) ng/ml NT-Pro-B Natriuret Pep (0-1800) pg/ml Total Protein 5.9 L (6.4-8.2) gm/dl Albumin 2.0 L (3.4-5.0) gm/dl Globulin 3.9 (2.5-4.0) gm/dl Albumin/Globulin Ratio 0.5 L (0.9-2) Lipase (73-393) U/L Procalcitonin (0-0.5) ng/ml COVID-19 Eval Order SARS-CoV-2 (PCR) (Negative) 11/01/20 11/01/20 11/01/20 Range/Units 21:42 21:20 20:41 WBC (4.8-10.8) K/uL RBC (4.2-5.4) M/uL Hgb (12.0-16.0) g/dL Hct (37-47) % MCV (80-100) fL MCH (25-34) pg MCHC (32-36) g/dL RDW Std Deviation (36.4-46.3) fL RDW Coeff of Deana (11.5-14.5) % Plt Count (130-400) K/uL MPV (7.4-10.4) fL Immature Gran % (Auto) % Neut % (Auto) % Lymph % (Auto) % [place] % (Auto) % Eos % (Auto) % Baso % (Auto) % Neut # (Auto) (1.4-6.5) K/uL Lymph # (Auto) (1.2-3.4) K/uL [place] # (Auto) (0.11-0.59) K/uL Eos # (Auto) (0-0.5) K/uL Baso # (Auto) (0-0.2) K/uL Immature Gran # (Auto) (0.00-0.02) K/uL PT (9.0-12.0) Seconds INR (0.9-1.1) APTT (21.0-31.0) Seconds PTT Ratio Sodium (136-145) mmol/L Potassium (3.5-5.1) mmol/L Chloride (98-107) mmol/L Carbon Dioxide (21-32) mmol/L Anion Gap (3-11) BUN (7-18) mg/dl Creatinine (0.6-1.2) mg/dl Est Cr Clr Drug Dosing Est GFR ( Amer) ml/min Est GFR (Non-Af Amer) ml/min BUN/Creatinine Ratio (10-20) Glucose (70-99) mg/dl Lactate 1.4 (0.4-2.0) mmol/L Calcium (8.5-10.1) mg/dl Phosphorus (2.5-4.9) mg/dl Magnesium (1.8-2.4) mg/dl Total Bilirubin (0.2-1) mg/dl Direct Bilirubin (0-0.2) mg/dl AST (15-37) U/L ALT (12-78) U/L Alkaline Phosphatase (45-117) U/L Total Creatine Kinase (26-192) U/L Troponin I (0-0.045) ng/ml NT-Pro-B Natriuret Pep (0-1800) pg/ml Total Protein (6.4-8.2) gm/dl Albumin (3.4-5.0) gm/dl Globulin (2.5-4.0) gm/dl Albumin/Globulin Ratio (0.9-2) Lipase (73-393) U/L Procalcitonin 0.81 H (0-0.5) ng/ml COVID-19 Eval Order SARS-CoV-2 (PCR) NEGATIVE (Negative) 11/01/20 11/01/20 11/01/20 Range/Units 20:41 20:41 20:41 WBC 6.58 (4.8-10.8) K/uL RBC 2.97 L (4.2-5.4) M/uL Hgb 9.2 L (12.0-16.0) g/dL Hct 28.5 L (37-47) % MCV 96.0 (80-100) fL MCH 31.0 (25-34) pg MCHC 32.3 (32-36) g/dL RDW Std Deviation 50.4 H (36.4-46.3) fL RDW Coeff of Deana 14.4 (11.5-14.5) % Plt Count 173 (130-400) K/uL MPV 9.5 (7.4-10.4) fL Immature Gran % (Auto) 0.5 % Neut % (Auto) 90.9 % Lymph % (Auto) 7.4 % [place] % (Auto) 1.2 % Eos % (Auto) 0.0 % Baso % (Auto) 0.0 % Neut # (Auto) 5.98 (1.4-6.5) K/uL Lymph # (Auto) 0.49 L (1.2-3.4) K/uL [place] # (Auto) 0.08 L (0.11-0.59) K/uL Eos # (Auto) 0.00 (0-0.5) K/uL Baso # (Auto) 0.00 (0-0.2) K/uL Immature Gran # (Auto) 0.03 H (0.00-0.02) K/uL PT (9.0-12.0) Seconds INR (0.9-1.1) APTT (21.0-31.0) Seconds PTT Ratio Sodium 134 L (136-145) mmol/L Potassium 3.8 (3.5-5.1) mmol/L Chloride 99 (98-107) mmol/L Carbon Dioxide 29 (21-32) mmol/L Anion Gap 6.0 (3-11) BUN 46 H (7-18) mg/dl Creatinine 1.99 H (0.6-1.2) mg/dl Est Cr Clr Drug Dosing Not Reportable Est GFR ( Amer) 27.6 ml/min Est GFR (Non-Af Amer) 23.8 ml/min BUN/Creatinine Ratio 22.9 H (10-20) Glucose 113 H (70-99) mg/dl Lactate (0.4-2.0) mmol/L Calcium 8.4 L (8.5-10.1) mg/dl Phosphorus 2.5 (2.5-4.9) mg/dl Magnesium 1.2 L (1.8-2.4) mg/dl Total Bilirubin 2.4 H (0.2-1) mg/dl Direct Bilirubin 1.9 H (0-0.2) mg/dl AST 76 H (15-37) U/L ALT 27 (12-78) U/L Alkaline Phosphatase 307 H (45-117) U/L Total Creatine Kinase 43 (26-192) U/L Troponin I < 0.015 (0-0.045) ng/ml NT-Pro-B Natriuret Pep 68806 H (0-1800) pg/ml Total Protein 6.1 L (6.4-8.2) gm/dl Albumin 1.7 L (3.4-5.0) gm/dl Globulin 4.4 H (2.5-4.0) gm/dl Albumin/Globulin Ratio 0.4 L (0.9-2) Lipase 87 (73-393) U/L Procalcitonin (0-0.5) ng/ml COVID-19 Eval Order Covid19 at [facility] SARS-CoV-2 (PCR) (Negative) 11/01/20 Range/Units 20:41 WBC (4.8-10.8) K/uL RBC (4.2-5.4) M/uL Hgb (12.0-16.0) g/dL Hct (37-47) % MCV (80-100) fL MCH (25-34) pg MCHC (32-36) g/dL RDW Std Deviation (36.4-46.3) fL RDW Coeff of Deana (11.5-14.5) % Plt Count (130-400) K/uL MPV (7.4-10.4) fL Immature Gran % (Auto) % Neut % (Auto) % Lymph % (Auto) % [place] % (Auto) % Eos % (Auto) % Baso % (Auto) % Neut # (Auto) (1.4-6.5) K/uL Lymph # (Auto) (1.2-3.4) K/uL [place] # (Auto) (0.11-0.59) K/uL Eos # (Auto) (0-0.5) K/uL Baso # (Auto) (0-0.2) K/uL Immature Gran # (Auto) (0.00-0.02) K/uL PT 11.4 (9.0-12.0) Seconds INR 1.1 (0.9-1.1) APTT 31.0 (21.0-31.0) Seconds PTT Ratio 1.2 Sodium (136-145) mmol/L Potassium (3.5-5.1) mmol/L Chloride (98-107) mmol/L Carbon Dioxide (21-32) mmol/L Anion Gap (3-11) BUN (7-18) mg/dl Creatinine (0.6-1.2) mg/dl Est Cr Clr Drug Dosing Est GFR ( Amer) ml/min Est GFR (Non-Af Amer) ml/min BUN/Creatinine Ratio (10-20) Glucose (70-99) mg/dl Lactate (0.4-2.0) mmol/L Calcium (8.5-10.1) mg/dl Phosphorus (2.5-4.9) mg/dl Magnesium (1.8-2.4) mg/dl Total Bilirubin (0.2-1) mg/dl Direct Bilirubin (0-0.2) mg/dl AST (15-37) U/L ALT (12-78) U/L Alkaline Phosphatase (45-117) U/L Total Creatine Kinase (26-192) U/L Troponin I (0-0.045) ng/ml NT-Pro-B Natriuret Pep (0-1800) pg/ml Total Protein (6.4-8.2) gm/dl Albumin (3.4-5.0) gm/dl Globulin (2.5-4.0) gm/dl Albumin/Globulin Ratio (0.9-2) Lipase (73-393) U/L Procalcitonin (0-0.5) ng/ml COVID-19 Eval Order SARS-CoV-2 (PCR) (Negative)
[2020-11-02] MEDS ORDERED: SODIUM CHLORIDE 0.9% 1000ML 1,000 ML IV ONE (09:34)
[2020-11-02] MEDS ORDERED: LACTATED RINGER'S 1,000 ML IV ONE (09:36)
--- NOTE | 2020-11-02 10:28 | Critical Care Consultation ---
Date of Consultation November 02, 2020 Assessment & Plan (1) Pulmonary embolism, bilateral: Reason Critically Ill: Dora is a very pleasant 75-year-old female with a notable past medical history of pancreatic adenocarcinoma status post ERCP in August with placement of common bile duct stent (in the context of sepsis), COPD, hyperparathyroidism, dyslipidemia, hypertension who presented to [facility] for evaluation of chest congestion, shortness of breath, generalized weakness, decreased oral intake x several days, subsequently found to be hypotensive, tachycardic, and febrile in the context of a fluid-filled CBD stent on CT-A/P and bilateral pulmonary emboli. She requires ICU-level care for management of her shock. Neuro - CAM ICU: NEGATIVE Sedation: None Analgesia: None Metabolic Encephalopathy * Mild - patient mentating and completely alert and oriented, but somnolent * Suspect this is secondary to hypoperfusion in setting of shock and likely inflammatory / septic component, too * 5-point drop in H&H from 10/26 noted -- may also be contributory, no obvious source at present * No major lyte abnormalities -- add ammonia * Treatment as below. Cardiac / ID / Pulm - Shock * Patient presenting with hypotension, tachycardia, fever, good peripheral perfusion in setting of intraductal dilatation (around previous stent) and bilateral pulmonary emboli * Now s/p multiple fluid boluses - will continue and also initiate pressor support * In setting of presenting symptoms, suspect this is most likely secondary to septic shock --> Source likely hepatic / intraductal, CT-A/P revealing of dilatation around previous stent --> BCX demonstrating GNR x 1 so far, await speciation / sensitivity [[ has h/o Klebsiella bacteremia ]] --> Continue intravenous cefepime and flagyl for GI coverage --> GI previously consulted: proceed with ERCP once patient is stabilized --> Maintain MAP > 65 --> Maintain UOP > 0.5cc/kg/hr --> Will require repeat BCX x 48 hours * Pulmonary emboli also considered within this process -- BNP > 25k --> Management as below --> Await echocardiography Pulmonary Emboli * Segmental and subsegmental b/l pulmonary emboli noted on admission CTA-Chest * Await stat echocardiogram --> If needed can consider modification of pressors * Bilateral LE duplex * Switch from Lovenox --> Heparin gtt (initiate tonight) given possible intervention today GI - Possible Cholangitis * Patient with h/o pancreatic adenocarcinoma, s/p ERCP with metal CBD stent in August 2020 * In setting of HoTN, tachycardia, +BCX (GNR), transaminitis, hyperbilirubinemia, and suspected septic shock, concern that this may be source * CT-A/P notable for intraductal dilatation and fluid-filled stent * GI on board, following -- anticipate urgent ERCP today * Note: Patient did receive Lovenox this AM * NPO RENAL/LYTES - Acute Kidney Injury * Baseline Cr 1.0 - 1.2 on chart review (to 2018) * BUN/Cr revealing today: ~42/1.8 * Suspect this is prerenal in nature in setting of ongoing shock, possible infection * Continue IVF, daily labs - * Insert Watson * No acute needs otherwise ENDO - * ICU Hyperglycemia protocol HEME - Normocytic Anemia * Borderline macrocytic anemia appreciated on admission - 9.2 --> 8.6 today * This is nearly a 5-point drop from 10/26 (1 week ago), which was 13.2 * In setting of recent chemotherapy and active infection --> PT/INR 12.1 / 1.2 * Source, cause unclear right now - bleed? LINES/IV ACCESS - PIVs intact. DVT PROPHYLAXIS - Heparin gtt Thank you for allowing us to be part of this patient's care. Please refer to Dr. Jorge's documentation for any further recommendations. (2) Venous insufficiency: (3) Impaired fasting glucose: (4) Hepatic steatosis: (5) Dyslipidemia: (6) Chronic obstructive pulmonary disease: (7) Hyperparathyroidism, primary: (8) Chronic osteoarthritis: (9) Encounter for pre-operative examination: (10) Adenocarcinoma: (11) Mass of pancreas: (12) Asymptomatic PVCs: (13) Secondary polycythemia: (14) DNR (do not resuscitate): (15) Hypomagnesemia: (16) Pancreatic adenocarcinoma: (17) Transaminitis: (18) Acute kidney injury: Supervising Physician Co-Signing Physician Notes Dr. Benito was resident physician during care of patient. I separately evaluated patient for ng portions of the history and the exam. I was present during the critical portion of medical decision making, and I discussed the case with the resident. I generally agree with the findings and plan. Gram-negative septic shock requiring fluid and vasopressors. The pulmonary embolisms are subsegmental I do not believe that there is a significant cardiogenic contribution from pulmonary embolisms at this time. She has underwent an ERCP with successful stent placement. Continue current therapy. I have personally spent 40 minutes of critical care time in the direct management of this patient. This is a life/limb threatening event. This includes time spent evaluating patient, direct bedside care, chart review, placing orders, interpretation of diagnostic studies, discussion with consultants, patient, and/or family members regarding treatment decisions, as well as other required patient management activities. This time is exclusive of all separately billable procedures, and teaching time and separate from and in addition to any other critical care service time. History of Present Illness Attending Physician: DO Jami Valentinoan is a very pleasant 75-year-old female with a notable past medical history of pancreatic adenocarcinoma status post ERCP in August with placement of common bile duct stent (in the context of sepsis), COPD, hyperparathyroidism, dyslipidemia, hypertension who presented to [facility] for evaluation of chest congestion, shortness of breath, generalized weakness, decreased oral intake over the last several days. Patient is seen at the bedside. Although she is somnolent at the time of history taking, she is fully alert and oriented. She notes to me that she had her first round of chemotherapy approximately last week. Since that time, she does report having one fever as well as diarrhea. She then said that on the day prior to her presentation, she felt so weak "that I could hardly get up." Upon her arrival to [facility], she did undergo CT angiography of the chest, which did show a segmental and subsegmental pulmonary emboli in the right lower lobe and a left upper lobe. She was started on Lovenox. CT of the abdomen and pelvis was also significant for a fluid-filled stent within the common bile duct, as well as moderate intrahepatic biliary ductal dilation and small to moderate left-sided pleural effusion. She was found to have transaminitis around this time. She was started on broad-spectrum antibiotics. Last night, she was reported to be febrile (2), hypotensive, and tachycardic that continued into this morning. She was subsequently given fluid boluses and attempt of resuscitation, with only modest response. GI had previously been consulted, who noted that patient is in need of an ERCP, but does require stabilization beforehand. ICU was subsequently consulted for aid in management of her perfusion status. Patient denies any chest pain, palpitations. Denies any lightheadednessalthough she has not been up to walk around. She does endorse a feeling of chest congestion, but no real shortness of breath. She does intermittently cough, denies any pain with her cough. She denies any nausea, vomiting. She does endorse mild abdominal pain, initially noting the epigastric region, but on my exam, reporting more so in the right upper quadrant region. She denies any recent changes in bowel movements, other than the aforementioned diarrhea. No pale or acholic stools. She does report experiencing urinary retention yesterday prior to his admission. She denied any dysuria or urinary frequency. Allergies Allergy/AdvReac Type Severity Reaction Status Date / Time bupropion Allergy Severe Lip Verified 11/01/20 21:12 swelling bacitracin Allergy Unknown Emaceration Verified 11/01/20 21:12 of skin at site neomycin Allergy Unknown Emaceration Verified 11/01/20 21:12 of skin at site polymyxin B Allergy Unknown Emaceration Verified 11/01/20 21:12 of skin at site Aminoglycosides AdvReac Intermediate Skin Verified 11/01/20 21:12 irritation Home Medications Medication Instructions Recorded Confirmed Type Tijeras-3 1 cap PO QAM 09/25/18 11/01/20 History ascorbic acid (vitamin C) 1 g PO QAM 09/25/18 11/01/20 History vitamin E 100 unit capsule 100 units PO QAM 10/02/18 11/01/20 History cholecalciferol (vitamin D3) 25 1,000 units PO QAM #90 cap 04/06/19 11/01/20 History mcg (1,000 unit) capsule gabapentin 300 mg capsule 300 mg PO HS #90 cap 02/02/20 11/01/20 Rx aspirin 81 mg tablet,delayed 81 mg PO Q2D 02/03/20 11/01/20 History release PreserVision AREDS-2 1 tab PO BID 02/16/20 11/01/20 History atorvastatin 20 mg PO HS 02/16/20 11/01/20 History albuterol sulfate 90 mcg/actuation 2 puff INHALATION Q6H PRN #8.5 g 02/27/20 11/01/20 Rx aerosol inhaler metoprolol succinate 25 mg PO QAM 03/11/20 11/01/20 History garlic 1,000 mg PO QAM 04/09/20 11/01/20 History nortriptyline 25 mg capsule 25 - 50 mg PO HS #60 cap 05/25/20 11/01/20 Rx Anoro Ellipta 1 inh INHALATION HS 10/20/20 11/01/20 History Saccharomyces boulardii [Florastor] 250 mg PO QAM 10/20/20 11/01/20 History amlodipine 5 mg PO QAM 10/20/20 11/01/20 History hydrochlorothiazide 25 mg PO QAM 10/20/20 11/01/20 History pantoprazole 40 mg PO QAM 10/20/20 11/01/20 History hydrocodone 10 mg-acetaminophen 2 tab PO Q6H PRN 30 Days #240 tab 10/29/20 11/01/20 Rx 325 mg tablet MDD 8 tabs ondansetron HCl 8 mg PO Q8H PRN 11/01/20 11/01/20 History prochlorperazine maleate 10 mg PO Q6H PRN 11/01/20 11/01/20 History Patient History Medical History Acute kidney injury 08/2020 > resolved Asymptomatic PVCs Chronic obstructive pulmonary disease Chronic osteoarthritis Clostridium difficile diarrhea 2018 Dyslipidemia Hepatic steatosis Hyperparathyroidism, primary Hypertension Impaired fasting glucose Lumbar spinal stenosis Migraine Hx Nocturnal hypoxia 2L/min NC HS Nontoxic multinodular goiter Venous insufficiency Surgical History History of appendectomy History of cholecystectomy History of colonoscopy History of ERCP ERCP with Biliary Stent Placement, EUS (08/23/20): Grade view 1, MAC#3, ETT 7.0 at [facility] History of hip replacement R/L History of knee replacement Right Family History Daughter Family history of diabetes mellitus Other No pertinent family history Social History Smoking Status: Current every day smoker Tobacco Type: Cigarettes Age Started Using Tobacco: 18; packs per day: 0.5; Years Smoked: 55; Cigarettes Per Day: 5; Second Hand Exposure: Yes (SPOUSE SMOKES); Do You Dip or Chew Tobacco: No; Hx Alcohol Use: No Hx Substance Use: No Preferred Language: British Communication Ability: Effective Visual Impairment: No Limitations Wallboard Worker Required: No Beliefs That Will Affect Care: None marital status: Current Living Situation: Spouse current occupational status: retired 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 She does awaken easily. She is fully alert and oriented throughout her discussion. HEENT: NCAT. Eyes - Sclera are white, anicteric, and without injection. PERRL. Cardiac: Normal rate and irregular rhythm vs. frequent ectopy; S1 and S2 present with no murmurs, rubs, or gallops. Pulmonary: Mildly increased respiratory effort with symmetric expansion of the chest. No use of accessory muscles. Lungs do demonstrate expiratory wheezes, more appreciable in the left compared to the right, but present globally. Abdominal: Bowel sounds are distant in sound hyperstimulated. There is mild tenderness to palpation in the epigastric region, as well as in the right upper quadrant region. There is no involuntary guarding. No rebound tenderness. Lindquist's positive. Extremities: Upper and lower extremities are warm and well perfused. Upper extremity pulses 2+ bilaterally. Capillary refill was approximately 2 seconds. Results & Data Results & Data ([facility]) Vital Signs (Past 12 Hours) Vital Signs Temp Pulse Pulse Resp BP BP BP 11/02/20 09:32 37.2 C 100 H 20 87/51 L 11/02/20 07:36 37.8 C H 112 H 20 89/47 L 11/02/20 03:07 37.0 C 92 H 16 120/64 11/02/20 02:15 81 20 101/58 L 11/02/20 01:30 88 14 105/62 11/02/20 01:00 85 14 107/64 11/02/20 00:30 88 17 105/62 11/02/20 00:15 88 20 103/56 L 07/13/21 00:00 84 15 96/53 L 11/01/20 23:00 85 15 108/55 L 11/01/20 22:30 80 13 113/64 Pulse Ox Pulse Ox 11/02/20 09:32 88 L 11/02/20 07:36 90 11/02/20 03:07 91 91 11/02/20 02:15 95 11/02/20 01:30 96 11/02/20 01:00 94 11/02/20 00:30 95 11/02/20 00:15 94 11/02/20 00:00 97 11/01/20 23:00 95 11/01/20 22:30 95 Resident Activity Tracking Resident Involvement: Resident Care Provided Care Provided: Adult Hospital Medicine (1) Chronic obstructive pulmonary disease COPD type: unspecified COPD Qualified Code(s): J44.9 - Chronic obstructive pu lmonary disease, unspecified
--- NOTE | 2020-11-02 10:47 | History & Physical Bridge Note ---
Date of Service November 02, 2020 History & Physical Bridge Note I have examined the patient, reviewed the History & Physical and in the interval since the performance of the History & Physical I have noted the following changes of clinical significance: The patient has a history of: COPD, HTN, and pancreatic adenocarcinoma cancer with common bile duct stent. She came in with stent filled with fluid and ductal dilation with sepsis physiology. She was also incidentally found to have a right and left lower lobe pulmonary embolisms. She was started on Zosyn and Therapeutic weight based Lovenox. GI was consulted. Called to bedside by nursing for hypotension, febrile, and tachycardic, and hypoxia. Patient's labs were reviewed noting elevated BNP to 27K, PCT 0.81, normal lactate and improvement in kidney injury, and no change in her LFTs overnight but AST increased from 10-76 over the past week, t-bili remains at 1.9 from 1.3. The patient BP is 80/40's and was 100/50s through the PM with steadily increasing HR. The patient is awake and alert conversant. Her skin is very warm, and pulses are brisk and thready, and her urine via purewick is dark rick, her HGB this morning is 8.6--9.2--from 13 last week. Patient endorses feeling very very thirsty. Etiology is likely worsening septic shock however will obtain a stat ECHO to evaluate hemodynamic function in regards to her PE. She will be transferred to the ICU for continue volume resuscitation and vasopressor requirements. GI has been notified of change in patient status by Dr. Beckman and appreciate their assistance. I have reviewed the case and impressions with ICU staff Dr. Jorge who agreed with transfer to the ICU for coordination of resuscitation and supporting hemodynamics. Continue with IVF resuscitation while pending ECHO, type and screen ordered. 1 liter of crystalloid infusing this morning- for 1.5 liters since 0700. Patient is a DNR/DNI Lines: Mediport and PIV Lovenox continued Remains on ASA Metoprolol held Cefepime and Flagyl converted from Zosyn this morning Amlodipine and HCTZ held, Carvedilol held for low BP Diet NPO as of this morning Dispo ICU Supervising Physician Co-Signing Physician Notes SPECIAL INVESTIGATOR Supervision note: I have personally seen and examined the patient and discussed and verified the ng points of the history and physical along with the plan with TOSHA Dos Santos with the following exceptions and/or additions: Discussed care with GI SPECIAL INVESTIGATOR, plan for urgent ERCP today given sepsis, however received Lovenox therapeutic dosing this AM-GI aware None
--- NOTE | 2020-11-02 11:12 | Consultation Report ---
MEDICAL ONCOLOGY CONSULTATION DATE OF CONSULTATION: 11/02/2020 REASON FOR CONSULTATION: Bilateral pulmonary embolism in a 75-year-old female with locally advanced pancreatic cancer. HISTORY OF PRESENT ILLNESS: Dora Kirby is a very pleasant 75-year-old female, well known t o CCP, currently under my care, with a borderline resectable pancreatic head cancer, recently started neoadjuvant gemcitabine and Abraxane. She presented to the Emergency Room yesterday with subacute o nset shortness of breath, generalized weakness and asthenia with decreased oral intake over the past several days. Again, she received her first dose of cycle #1 gemcitabine and Abraxane on 10/26. Jami minor underwent extensive laboratory and radiographic workup on admission, specifically CTA of the chest , which revealed segmental and subsegmental bilateral pulmonary emboli with partially occlusive embol i within the left lower lobe. Moderate left and trace right pleural effusions as well as atelectasis of the left lower lobe is noted. Increased size of the previously described paraesophageal lymph no de suspicious for metastatic disease. From a laboratory perspective, she definitely manifest a worse lilli anemia as well as increase in her creatinine level. I visited her at bedside. She actually nasreen ears to be somewhat jaundiced and definitely significantly debilitated from when I saw her previously . She is presently on Lovenox anticoagulation. The hospitalist service is requesting guidance regard ing anticoagulation moving forward. She was due for her second course of cycle #1 chemotherapy today . Obviously with her debilitated state, we will delay and seriously consider dose reduction moving f orward. PAST MEDICAL HISTORY: 1. Acute renal injury. 2. Chronic obstructive pulmonary disease. 3. Osteoarthritis. 4. Clostridium difficile diarrhea. 5. Dyslipidemia. 6. Hepatic steatosis. 7. Pancreatic cancer. 8. Lumbar spine stenosis. 9. Migraine headaches. 10. Hyperparathyroidism. 11. Venous insufficiency. PAST SURGICAL HISTORY: Includes appendectomy, cholecystectomy, colonoscopy, ERCP, and history of hip and knee replacement surgeries. MEDICATIONS: Prior to admission include Bulan-3 one capsule p.o. daily, vitamin C 1 gram p.o. daily, vitamin E 100 units p.o. daily, cholecalciferol 1000 units p.o. daily, gabapentin 300 mg p.o. at bed time, aspirin 81 mg p.o. every other day, PreserVision 1 capsule p.o. b.i.d., atorvastatin 20 mg p.o. daily, albuterol inhaler 2 puffs inhaled q.6 hours p.r.n., metoprolol succinate 25 mg p.o. daily, ga rlic 1000 mg p.o. daily, nortriptyline 20-50 mg p.o. at bedtime, Anoro Ellipta 1 inhalation at bedtim e, amlodipine 5 mg p.o. daily, hydrochlorothiazide 25 mg p.o. daily, Protonix 40 mg p.o. daily, hydro codone/acetaminophen 10/325 two tablets p.o. q.6 hours p.r.n., Zofran 8 mg p.o. q.8 hours p.r.n. and Compazine 10 mg p.o. q.6 hours p.r.n. ALLERGIES: BUPROPION, BACITRACIN/NEOMYCIN/POLYMYXIN B, AND AMINOGLYCOSIDES. 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 Ne gative for alcohol or illicit substances. FAMILY HISTORY: Noncontributory. REVIEW OF SYSTEMS: CONSTITUTIONAL: As per HPI, most notably for rapid clinical decline, fatigue/asthenia, poor p.o. int aziza. Negative for fevers, chills or sweats. SKIN: Jaundiced in appearance. No history of dermatoses otherwise. HEENT: Negative for headaches, lightheadedness or dizziness. No acute visual or hearing deficits. No sinus symptoms, sore throat or dysphagia. LYMPHATICS: No history of lymphoproliferative disease. CARDIAC: Negative for coronary artery disease, no angina or palpitations. PULMONARY: History of COPD, uses bronchodilators frequently. No cough or hemoptysis reported. GASTROINTESTINAL: Negative for abdominal pain, nausea, vomiting, diarrhea or constipation, hematoche michele or melena stools. GENITOURINARY: No hematuria, dysuria, or urinary incontinence. PSYCHIATRIC: Negative for anxiety, depression, or psychoses. ENDOCRINE: Negative for diabetes or thyroid disease. NEUROLOGIC: Negative for seizure, stroke or migraine headache. MUSCULOSKELETAL: Multiple joint replacements. Positive for osteoarthritis. No focal muscle weakness . HEMATOLOGIC: Positive for anemia. Recently diagnosed pulmonary embolism. PHYSICAL EXAMINATION: GENERAL: A very pleasant 75-year-old female in no acute distress. VITAL SIGNS: Temperature 37.8, pulse 112, respiratory rate 20, blood pressure 89/47. SKIN: Jaundiced in appearance. No evidence of petechiae or ecchymosis otherwise. HEENT: Atraumatic, normocephalic. Eyes: PERRLA, EOMI. Sclerae are nonicteric. No conjunctival in jection. Nares are patent without rhinorrhea or discharge. Throat is clear. Tongue midline. Mucou s membranes are moist. NECK: Supple without JVD or thyromegaly. LYMPHATICS: No cervical or supraclavicular palpable nodes. HEART: Regular rate and rhythm. No clicks, rubs, murmurs or gallops. LUNGS: Distant breath sounds, scattered rhonchi heard throughout all hurd. ABDOMEN: Soft, nontender, nondistended, without palpable hepatosplenomegaly. EXTREMITIES: No calf tenderness or swelling. No clubbing, cyanosis or edema. NEUROLOGIC: The patient is awake, alert and oriented x3. Cranial nerves grossly intact. LABORATORY DATA: WBC count 4910, hemoglobin 8.6, platelet count 130,000, absolute neutrophil count 4 560. PT 12.1, INR 1.2. Sodium 134, potassium 3.4, chloride 99, carbon dioxide 29, creatinine 1.76. Magnesium 1.2, total bilirubin 2.4, direct bilirubin 1.9, AST 76, alkaline phosphatase 307, albumin 1.7. IMPRESSION: 1. Locally advanced adenocarcinoma of the pancreas. 2. Bilateral pulmonary emboli. 3. Hypoalbuminemia. 4. Hypomagnesemia. 5. Hyperbilirubinemia. 6. Progressing normocytic, normochromic anemia. PLAN: Dora is a pleasant, somewhat unfortunate 75-year-old female patient, recently diagnosed with a locally advanced adenocarcinoma of the pancreatic head. Dora is in consultation with surgical onc ology at the [facility] and determined to be borderline resectable. Obviously with her c omorbid issues, surgical oncology is hesitant to pursue with surgical resection even if she has a rosy sonable response to treatment. Thus, it was decided to proceed with Abraxane and gemcitabine, which is administered weekly x3 every 28 days. She started her regimen on 10/26 and was due for her second dose today. Obviously, she did not tolerate her initial dose as manifested by laboratory and radiog raphic findings this admission. Thus, need to seriously consider significant dose reduction or perha ps abandonment of chemotherapy altogether should she not improve dramatically. She was placed on Estella enox and I have no issue with converting her to Xarelto moving forward. Obviously, she is going to n eed some time to recover and her nutritional status as well as electrolytes need to be corrected. Ag ree with supplemental albumin, which I would continue on a daily basis. From a hematologic standpoin t, intervention is not necessary at this time. However, if her hemoglobin would fall below 7.5, wobogdan d advocate a transfusion of packed RBCs. She is not having any significant pain issues, but clearly Dora is severely debilitated, which does not dioni well for aggressively continuing chemotherapy. He r renal function is currently compromised, but is slowly improving with IV hydration. We will plan t o reconvene with Dora; however, for now, her chemotherapy will be indefinitely delayed. Thank you very much for allowing me to participate in her care. If you have any questions or concern s, please feel free to contact me at any time. Job ID: [id number]
[2020-11-02] MEDS ORDERED: STAT IV Infusion **Titration per Protocol STA (11:25)
[2020-11-02] MEDS ORDERED: IPRATROPIUM BROMIDE NEB SOLN 0.02% 2.5 ML VIAL INH PRN (11:26)
[2020-11-02] MEDS ORDERED: ICU PROTOCOL FOR HYPERGLYCEMIA PRN (11:26)
[2020-11-02] MEDS: NOREPINEPHRINE/D5W 8 MG/508 ML BAG IV SCH (11:32)
[2020-11-02] MEDS ORDERED: Heparin IV Adult Wt-Based Standard *NO* Bolus Protocol IV SCH (11:43)
[2020-11-02 13:19] LABS: Hematocrit (blood only) 25.1 % (37-47); Hemoglobin 8.1 g/dL (12.0-16.0); Mean Corpuscular Hemoglobin 30.8 pg (25-34); Mean Corpuscular Hgb Conc 32.3 g/dL (32-36); Mean Corpuscular Volume 95.4 fL (80-100); Mean Platelet Volume 8.9 fL (7.4-10.4); Platelet Count 112 K/uL (130-400); RDW Coefficient of Variation 14.5 % (11.5-14.5); Red Blood Count 2.63 M/uL (4.2-5.4); White Blood Count 7.89 K/uL (4.8-10.8)
[2020-11-02 13:37] LABS: Immature Granulocytes # (auto) 0.08 K/uL (0.00-0.02); Lymphocytes # (auto) 0.65 K/uL (1.2-3.4); Lymphocytes % (auto) 8.2 %; Monocytes % (auto) 1.3 %; Neutrophils # (auto) 7.06 K/uL (1.4-6.5); Neutrophils % (auto) 89.5 %; Toxic Granulation 1+
[2020-11-02 13:39] LABS: BUN Creatinine Ratio 22.8 (10-20); Calcium 8.1 mg/dl (8.5-10.1); Creatinine Clr Calc Pharmacy 27.5 ml/min; Est GFR (African American) 33.1 ml/min; Est GFR (Non-African American) 28.6 ml/min; Potassium 3.8 mmol/L (3.5-5.1)
--- NOTE | 2020-11-02 13:44 | Ultrasound Report ---
BILATERAL LOWER EXTREMITY VENOUS DOPPLER HISTORY: Screening study in a patient with pulmonary emboli pulmonary emboli COMPARISON STUDY: CTA chest 11/01/2020 FINDINGS: There is normal compressibility, flow, and augmentation within the bilateral lower extremit y deep venous systems. The calf veins are suboptimally visualized secondary to positioning. Subcutane ous edema of the lower legs. IMPRESSION: No DVT within the right or left lower extremity. ACT 112: Negative or not required by law. Electronically signed by: Manan Mendes M.D. 11/02/2020 1:42 PM
[2020-11-02 13:49] LABS: Albumin Globulin Ratio 0.5 (0.9-2); Bilirubin,Total 1.6 mg/dl (0.2-1); Globulin 3.7 gm/dl (2.5-4.0); Total Protein 5.7 gm/dl (6.4-8.2)
--- NOTE | 2020-11-02 14:10 | History & Physical Bridge Note ---
Date of Service November 02, 2020 History & Physical Bridge Note I have examined the patient, reviewed the History & Physical from Ms. Ruvalcaba and Dr. Price. The patient has signs and symptoms consistent with acute cholangitis as manifest by her worsening hypotension, elevated liver enzymes and positive blood cultures. Given this ERCP with biliary decompression is deemed urgent and should be done today. If not possible at this hospital then I would highly recommend that the patient be transferred to a tertiary center. We have discussed the risks and benefits of the procedure to include bleeding, infection, perforation, pancreatitis, and need for follow-up studies.
[2020-11-02] MEDS: CEFEPIME 2,000 MG in SYRINGE 0 ML IV SCH (14:55)
--- NOTE | 2020-11-02 15:13 | Anesthesiology Consultation ---
Date of Service November 02, 2020 Assessment & Plan (1) Encounter for pre-operative examination: Chart Review Chart Review: Acceptable Risk for Surgery Consults Requested none ASA ASA4 Proposed Anesthesia Anesthesia Type: General Risk / Benefits Reviewed With: PT / POA / Parent / Guardian, Accepts Plan and Informed Consent Obtained History Surgery Operation Date: 11/02/20 10:40 Proposed Procedures p Endoscopic Retrograde Cholangiopancreatogram - Hector Mclain DO Height/Weight Height: 5 ft 4 in Weight: 73.3 kg Allergies Allergy/AdvReac Type Severity Reaction Status Date / Time bupropion Allergy Severe Lip Verified 11/01/20 21:12 swelling bacitracin Allergy Unknown Emaceration Verified 11/01/20 21:12 of skin at site neomycin Allergy Unknown Emaceration Verified 11/01/20 21:12 of skin at site polymyxin B Allergy Unknown Emaceration Verified 11/01/20 21:12 of skin at site Aminoglycosides AdvReac Intermediate Skin Verified 11/01/20 21:12 irritation Medications Home Medications Medication Instructions Recorded Confirmed Last Taken Everson-3 1 cap PO QAM 09/25/18 11/01/20 10/31/20 ascorbic acid (vitamin C) 1 g PO QAM 09/25/18 11/01/20 10/31/20 vitamin E 100 unit capsule 100 units PO QAM 10/02/18 11/01/20 10/31/20 cholecalciferol (vitamin D3) 25 1,000 units PO QAM #90 cap 04/06/19 11/01/20 10/31/20 mcg (1,000 unit) capsule gabapentin 300 mg capsule 300 mg PO HS #90 cap 02/02/20 11/01/20 10/31/20 aspirin 81 mg tablet,delayed 81 mg PO Q2D 02/03/20 11/01/20 10/31/20 release PreserVision AREDS-2 1 tab PO BID 02/16/20 11/01/20 10/31/20 atorvastatin 20 mg PO HS 02/16/20 11/01/20 10/31/20 albuterol sulfate 90 mcg/actuation 2 puff INHALATION Q6H PRN #8.5 g 02/27/20 11/01/20 3 Weeks Ago aerosol inhaler ~03/19/20 metoprolol succinate 25 mg PO QAM 03/11/20 11/01/2021 garlic 1,000 mg PO QAM 04/09/20 11/01/20 10/31/20 nortriptyline 25 mg capsule 25 - 50 mg PO HS #60 cap 05/25/20 11/01/20 10/31/20 Anoro Ellipta 1 inh INHALATION HS 10/20/20 11/01/20 10/31/20 Saccharomyces boulardii [Florastor] 250 mg PO QAM 10/20/20 11/01/20 10/31/20 amlodipine 5 mg PO QAM 10/20/20 11/01/20 10/31/20 hydrochlorothiazide 25 mg PO QAM 10/20/20 11/01/20 10/31/20 pantoprazole 40 mg PO QAM 10/20/20 11/01/20 10/31/20 hydrocodone 10 mg-acetaminophen 2 tab PO Q6H PRN 30 Days #240 tab 10/29/20 11/01/20 11/01/20 10:00 325 mg tablet MDD 8 tabs ondansetron HCl 8 mg PO Q8H PRN 11/01/20 11/01/20 10/26/20 prochlorperazine maleate 10 mg PO Q6H PRN 11/01/20 11/01/20 10/26/20 Active Medications Generic Name Dose Route Start Last Admin Trade Name Freq PRN Reason Stop Dose Admin Hydrocodone Bitart/Acetaminophen 2 tab 11/02/20 03:07 11/02/20 08:38 Hydrocodone/Acetaminophen 10/325 Tab PO 11/16/20 03:06 2 tab Q6H PRN Administration Pain Ascorbic Acid 1,000 mg 11/02/20 09:00 11/02/20 07:29 Ascorbic Acid 500 Mg Tab PO 12/02/20 08:59 1,000 mg QAM THOMAS Administration Aspirin 81 mg 11/02/20 09:00 11/02/20 07:28 Aspirin 81 Mg Ectab PO 12/02/20 08:59 81 mg Q48H THOMAS Administration Sodium Chloride 1,000 mls @ 80 mls/hr 11/02/20 06:00 11/02/20 09:44 Nss 1000ml IV 11/03/20 06:59 80 mls/hr .[id number] THOMAS Infusion Cefepime HCl 2,000 mg/ Syringe 20 mls @ 5 mls/min 11/02/20 14:00 11/02/20 14:55 IV 11/12/20 13:59 5 mls/min Q12H THOMAS Administration Protocol Metronidazole 500 mg in 100 mls @ 100 mls/hr 11/02/20 09:00 11/02/20 10:13 Flagyl IV 11/12/20 08:59 Infused Q8H THOMAS Infusion Protocol Norepinephrine Bitartrate 8 mg in 508 mls @ 13.964 mls/hr 11/02/20 11:30 11/02/20 11:32 Levophed/D5w IV 12/02/20 11:29 0.05 mcg/kg/min .Q24H THOMAS 14 mls/hr Administration Protocol 0.05 MCG/KG/MIN Pantoprazole Sodium 40 mg 11/02/20 09:00 11/02/20 07:28 Pantoprazole 40 Mg Tab PO 12/02/20 08:59 40 mg QAM THOMAS Administration Vitamin D 1,000 units 11/02/20 09:00 11/02/20 07:29 Cholecalciferol 1,000 Units 25 Mcg Tab PO 12/02/20 08:59 1,000 units QAM THOMAS Administration NPO Date Last Intake of Fluids: 11/02/20 Time Last Intake of Fluids: 08:00 Date Last Intake of Solids: 11/02/20 Time Last Intake of Solids: 08:00 Past Medical History Medical History Acute kidney injury 08/2020 > resolved Asymptomatic PVCs Chronic obstructive pulmonary disease Chronic osteoarthritis Clostridium difficile diarrhea 2018 Dyslipidemia Hepatic steatosis Hyperparathyroidism, primary Hypertension Impaired fasting glucose Lumbar spinal stenosis Migraine Hx Nocturnal hypoxia 2L/min NC HS Nontoxic multinodular goiter Venous insufficiency Exercise / Class Metabolic Activity IV < 2 Limit ADL/Bedbound Past Family History Family History Daughter Family history of diabetes mellitus Other No pertinent family history Past Surgical History Surgical History History of appendectomy History of cholecystectomy History of colonoscopy History of ERCP ERCP with Biliary Stent Placement, EUS (08/23/20): Grade view 1, MAC#3, ETT 7.0 at [facility] History of hip replacement R/L History of knee replacement Right Past Anesthesia History No Hx of Anesthesia Complications and No Family Hx of Anesthesia Complications History of PONV No Hx of PONV and No Hx of Motion Sickness Social History Smoking Status: Current every day smoker tobacco type: cigarettes Smoking cigarettes per day: 5 Do You Dip or Chew Tobacco: No Hx Alcohol Use: No Hx Substance Use: No substance use type: does not use Physical Exam Vital Signs Last Vital Signs Temp 97.7 F 11/02/20 14:19 Pulse 87 11/02/20 14:19 Resp 20 11/02/20 14:19 BP 106/58 L 11/02/20 14:19 Pulse Ox 96 11/02/20 14:19 ENMT Mouth: no dentition abnormality Thyromental Distance: > or= 3.5 Finger Breadths Mallampati Class: II Neck normal visual inspection Respiratory normal respiratory effort Auscultation: + diminished lung sounds Cardiovascular Rate/Rhythm: regular rate and regular rhythm Testing Laboratory Results 11/02/20 13:06 11/02/20 13:06 PT 12.1 Seconds (9.0-12.0) H 11/02/20 06:52 INR 1.2 (0.9-1.1) H 11/02/20 06:52 APTT 31.0 Seconds (21.0-31.0) 11/01/20 20:41 Blood Type A Positive 11/02/20 11:39 Antibody Screen NEGATIVE 11/02/20 11:39 11/01/20 21:20 Anaerobic Blood Culture - Preliminary Blood Gram negative bacilli Electrocardiogram Date: 11/01/20 Sinus rhythm with frequent Premature ventricular complexes, rate 98 bpm Low voltage QRS Possible Inferior infarct (cited on or before 25-SEP-2018) Cannot rule out Anterior infarct (cited on or before 25-SEP-2018) Abnormal ECG When compared with ECG of 22-AUG-2020 13:01, Premature ventricular complexes are now Present QRS axis Shifted right Serial changes of Anterior infarct Present Chest X-Ray Date: 11/01/20 IMPRESSION: No significant change in the bilateral pleural effusions and left basilar densities. Other Testing Chest CTA 11/01/20 IMPRESSION: 1. Segmental and subsegmental bilateral pulmonary emboli as above. Partially occlusive emboli within the left lower lobe is favored to be acute. 2. Moderate left and trace right pleural effusions. 3. Atelectasis with volume loss of the left lower lobe. 4. Tracheobronchial secretions with bronchial wall thickening and bibasilar mucous plugging. Correlate clinically to exclude aspiration. 5. Increased size of the previously described periesophageal lymph nodes, susp icious for metastatic disease.
[2020-11-02] MEDS ORDERED: ATROPINE SULFATE 0.1 MG/ML 10ML SYR IV PRN (15:16)
[2020-11-02] MEDS ORDERED: fentaNYL citrate 100 MCG/2 ML VIAL IV PRN (15:16)
[2020-11-02] MEDS ORDERED: ePHEDrine sulfate 50 MG/ML AMP IV PRN (15:16)
[2020-11-02] MEDS ORDERED: ONDANSETRON INJ 2 MG/ML 2 ML VIAL ONE (15:21)
[2020-11-02] MEDS ORDERED: ETOMIDATE 2 MG/ML 20 ML VIAL IV ONE (15:21)
[2020-11-02] MEDS ORDERED: SUCCINYLCHOLINE CHLORIDE 20 MG/ML 10 ML VIAL IV ONE (15:21)
[2020-11-02] MEDS ORDERED: fentaNYL citrate 100 MCG/2 ML VIAL ONE (15:21)
[2020-11-02] MEDS ORDERED: PHENYLEPHRINE 100MCG/ML 5ML SYR ONE (15:21)
[2020-11-02] MEDS ORDERED: LIDOCAINE 2% 2 ML VIAL/AMP(20MG/ML) INFIL ONE (15:21)
[2020-11-02] MEDS ORDERED: ePHEDrine sulfate 50 MG/ML SYR ONE (15:21)
[2020-11-02] MEDS ORDERED: PROPOFOL IV EMULSION 10 MG/ML 20 ML VIAL IV ONE (15:21)
[2020-11-02] MEDS ORDERED: LARYING-O-JET KIT (LTA) ONE (15:26)
[2020-11-02] MEDS ORDERED: INDOMETHACIN 50 MG SUPP PR ONE ×2 (15:29→16:00)
--- NOTE | 2020-11-02 16:23 | Post Operative Brief Note ---
Immediate Post Op Note v1 Date of Surgery November 02, 2020 Pre & Post Diagnosis Operation Date: 11/02/20 10:40 Pre-Op Diagnosis: Cholangitis Post-Op Diagnosis: Cholangitis I identified the patient and participated in the time-out.: Yes Procedure Operation Date: 11/02/20 10:40 Actual Procedures p Endoscopic Retrograde Cholangiopancreatogram with Stent Placement - Hector Mclain DO Surgeon Hector Mclain DO Water/Wastewater Engineer none Estimated Blood Loss 0 Findings Consistent with Post-Op Diagnosis
--- NOTE | 2020-11-02 16:23 | GI REPORT ---
Patient Name: Dora Kirby Procedure Date: 11/02/2020 1:43 PM Date of : 1945 Admit Type: Inpatient Age: 75 Gender: Female Attending MD: Hector Mclain DO Procedure: ERCP Providers: Hector Mclain DO Referring MD: Jessica Beckman Md, Casey Couch MD, Claude Hodges Indications: Abdominal pain of suspected biliary origin, Ascending cholangitis, Elevated liver enzymes, Stent change Medicines: General Anesthesia Complications: No immediate complications. Estimated blood loss: Minimal. Estimated Blood Loss: Estimated blood loss was minimal. Procedure: Pre-Anesthesia Assessment: - Prior to the procedure, a History and Physical was performed, and patient medications, allergies and sensitivities were reviewed. The patient's tolerance of previous anesthesia was reviewed. - The risks and benefits of the procedure and the sedation options and risks were discussed with the patient. All questions were answered and informed consent was obtained. - Patient identification and proposed procedure were verified prior to the procedure by the physician, the nurse and the product management internship. The procedure was verified in the procedure room. - Pre-procedure physical examination revealed no contraindications to sedation. - ASA Grade Assessment: IV - A patient with severe systemic disease that is a constant threat to life. - After reviewing the risks and benefits, the patient was deemed in satisfactory condition to undergo the procedure. - The anesthesia plan was to use general anesthesia. - Immediately prior to administration of medications, the patient was re-assessed for adequacy to receive sedatives. - The heart rate, respiratory rate, oxygen saturations, blood pressure, adequacy of pulmonary ventilation, and response to care were monitored throughout the procedure. - The physical status of the patient was re-assessed after the procedure. After obtaining informed consent, the scope was passed under direct vision. Throughout the procedure, the patient's blood pressure, pulse, and oxygen saturations were monitored continuously. The Scope was introduced through the mouth, and advanced to the duodenum and used to inject contrast into the bile duct. The ERCP was accomplished without difficulty. The patient tolerated the procedure well. Findings: A financial representative film of the abdomen was obtained. Surgical clips, consistent with a previous cholecystectomy, were seen in the area of the right upper quadrant of the abdomen. A biliary stent was visible on the financial representative film. The esophagus was successfully intubated under direct vision without detailed examination of the pharynx, larynx, and associated structures, and upper GI tract. The upper GI tract was grossly normal. One covered metal stent originating in the biliary tree was emerging from the major papilla. The stent was totally occluded. A biliary sphincterotomy had been performed. The sphincterotomy appeared open. One stent was removed from the biliary tree using a snare. The bile duct was deeply cannulated with the short-nosed traction sphincterotome and guidewire. Contrast was injected. I personally interpreted the bile duct images. Contrast extended to the hepatic ducts. The middle third of the main bile duct and upper third of the main bile duct were diffusely dilated, secondary to a know malignant biliary stricture. The largest diameter was 12 mm. The main bile duct contained filling defect(s) thought to be a stone and sludge. To discover objects, the biliary tree was swept with a 15 mm balloon starting at the bifurcation. Sludge was swept from the duct. Many stones were removed. No stones remained. Pus was swept from the duct. One 10 Fr by 8 cm covered metal stent was placed 7.5 cm into the common bile duct ([place] Vi[employer], Ref [id number], SN [id number]). Bile and pus flowed through the stent. The stent was in good position. The endoscope was withdrawn from the patient. Indomethacin 100 mg was given via suppository to decrease the risk of post-ERCP pancreatitis (PEP). Impression: - One totally occluded stent from the biliary tree was seen in the major papilla. - Choledocholithiasis was found. Complete removal was accomplished by balloon extraction. The previously noted biliary stricture was identified and stented. - One covered metal stent was placed into the common bile duct. - Indomethacin given to decrease risk of post-ERCP pancreatitis. Recommendation: - Return patient to ICU for ongoing care. - Clear liquid diet today. - Use broad spectrum antibiotics for 2 weeks. - Use Actigall (ursodiol) 300 mg PO BID indefinitely. Hector Mclain D.O. Hector Mclain DO 11/02/2020 4:22:36 PM This report has been signed electronically. Note Initiated On: 11/02/2020 1:43 PM Number of Addenda: 0 I attest to the content of the Intraoperative Record and orders documented therein, exceptions below {[id number]}
--- NOTE | 2020-11-02 16:24 | Communication Note ---
Date of Service: November 02, 2020 The patient underwent emergency ERCP this afternoon for cholangitis. She was found to have a completely occluded biliary stent. This was removed. In addit ion there were numerous stones and a large amount of pus within the common bile duct which was extracted with a balloon. A new covered metal stent was placed. Recommendations Continue IV hydration Continue broad-spectrum antibiotic coverage for total of 14 days Patient may have clear liquids Would suggest use of a bile acid agent such as Actigall 300 mg twice daily indefinitely to try and prevent recurrent stent occlusion
--- NOTE | 2020-11-02 16:25 | Fluoroscopy Report ---
[place] ERCP biliary ductal CLINICAL HISTORY: Pancreatic carcinoma. History of bowel extending. COMPARISON STUDY: 08/23/2020 FLUOROSCOPY TIME: 109 seconds. NUMBER OF FLUOROSCOPIC IMAGES: 10 FINDINGS: 10 intraoperative fluoroscopic spot images were obtained during ERCP. There was retrograde catheterization of the common bile duct with insertion of a balloon catheter. The final image demonst rated good strain of the biliary contrast. There are right upper quadrant surgical clips suggesting a prior cholecystectomy. IMPRESSION: Fluoroscopic spot images obtained during ERCP. ACT 112: Negative or not required by law. Electronically signed by: Wesley Kerr M.D. 11/02/2020 4:24 PM
[2020-11-02 16:41] LABS: Appearance Urine Clear (Clear); Bacteria Urine Automated Negative (Negative); Blood Urine Negative (Negative); Color Urine Dark Yellow; Glucose Urine UA Negative (Negative); Ketones Urine Trace (Negative); Leukocyte Esterase Urine Negative (Negative); Nitrite Urine Negative (Negative); Protein Urine 1+ (Negative); Specific Gravity Urine 1.041 (1.000-1.030); Urobilinogen Urine Negative (Negative)
[2020-11-02 16:50] LABS: Bilirubin Urine 1+ (Negative)
[2020-11-02 16:51] LABS: Calcium Oxalate Crystals Urine Present (None Prsent)
--- NOTE | 2020-11-02 16:56 | Anesthesiology Progress Note ---
Date of Service November 02, 2020 Anesthesia Post Procedure Vital Signs Vital Signs: Temp Pulse Pulse Pulse Resp BP BP 11/02/20 16:48 97.9 F 89 14 11/02/20 16:45 88 16 11/02/20 16:40 90 16 11/02/20 16:35 96 H 18 11/02/20 16:30 100 H 18 11/02/20 16:25 98.2 F 108 H 18 11/02/20 14:19 97.7 F 87 20 11/02/20 13:16 88 21 101/51 L 11/02/20 13:01 88 18 95/56 L 11/02/20 12:46 89 17 96/52 L 11/02/20 12:31 88 21 90/46 L 11/02/20 12:16 92 H 18 85/48 L 11/02/20 12:01 91 H 21 92/51 L 11/02/20 11:46 95 H 20 90/60 L 11/02/20 11:31 90 20 85/50 L 11/02/20 11:26 97.9 F 11/02/20 09:32 99.0 F 100 H 20 11/02/20 07:36 100.0 F H 112 H 20 89/47 L 11/02/20 03:07 98.6 F 92 H 16 120/64 11/02/20 02:15 81 20 101/58 L 11/02/20 01:30 88 14 105/62 11/02/20 01:00 85 14 107/64 11/02/20 00:30 88 17 105/62 11/02/20 00:15 88 20 103/56 L 11/02/20 00:00 84 15 96/53 L 11/01/20 23:00 85 15 108/55 L 11/01/20 22:30 80 13 113/64 11/01/20 22:15 88 15 113/63 11/01/20 22:00 92 H 21 80/45 L 11/01/20 21:45 91 H 13 118/65 11/01/20 21:30 96 H 16 108/64 11/01/20 21:27 96 H 14 102/66 11/01/20 21:15 92 H 18 98/58 L 11/01/20 21:00 70 17 104/53 L 11/01/20 20:45 114 H 18 97/60 L 11/01/20 20:36 36 H 11/01/20 19:42 97.5 F L 81 16 76/48 L BP Pulse Ox Pulse Ox 11/02/20 16:48 116/65 94 11/02/20 16:45 114/62 94 11/02/20 16:40 115/54 L 95 11/02/20 16:35 118/64 94 11/02/20 16:30 117/63 93 11/02/20 16:25 112/72 90 11/02/20 14:19 106/58 L 96 11/02/20 13:16 92 11/02/20 13:01 94 11/02/20 12:46 93 11/02/20 12:31 91 11/02/20 12:16 90 11/02/20 12:01 88 L 11/02/20 11:46 92 11/02/20 11:31 93 11/02/20 11:26 11/02/20 09:32 87/51 L 88 L 11/02/20 07:36 90 11/02/20 03:07 91 91 11/02/20 02:15 95 11/02/20 01:30 96 11/02/20 01:00 94 11/02/20 00:30 95 11/02/20 00:15 94 11/02/20 00:00 97 11/01/20 23:00 95 11/01/20 22:30 95 11/01/20 22:15 96 11/01/20 22:00 94 11/01/20 21:45 93 11/01/20 21:30 93 11/01/20 21:27 11/01/20 21:15 11/01/20 21:00 92 11/01/20 20:45 92 11/01/20 20:36 11/01/20 19:42 79 L Pain Intensity Bilateral Leg: Pain Intensity: 9 Transfer of Care Handoff Completed per policy Notes Mental Status: alert / awake / arousable and participated in evaluation Patient Amnestic to Procedure: Yes Nausea / Vomiting: adequately controlled Pain: adequately controlled Airway Patency, RR, SpO2: stable & adequate BP & HR: stable & adequate Hydration State: stable & adequate Anesthetic Complications: no major complications apparent and Pt Satisfied with anesthetic care
[2020-11-02 17:42] LABS: Urine Chloride 15 mmol/L; Urine Potassium 39.6 mmol/L; Urine Sodium < 5 mmol/L
--- NOTE | 2020-11-02 17:53 | Billing Data ---
Date of Service November 02, 2020 Coding Level of Care Code Critical Care 1st 30-74 mins
--- NOTE | 2020-11-02 18:25 | Electrocardiogram Report ---
Test Reason : Blood Pressure : / mmHG Vent. Rate : 098 BPM Atrial Rate : 098 BPM P-R Int : 158 ms QRS Dur : 096 ms QT Int : 344 ms P-R-T Axes : 046 -08 029 degrees QTc Int : 439 ms Sinus rhythm with frequent Premature ventricular complexes Low voltage QRS Possible Inferior infarct (cited on or before 25-SEP-2018) Poor R wave progression, consider anterior NH vs. lead placement vs. LVH Abnormal ECG When compared with ECG of 22-AUG-2020 13:01, Premature ventricular complexes are now Present QRS axis Shifted right Confirmed by Dawson Navarro ([id number]) on 11/02/2020 6:24:54 PM Referred By: REFERRED SELF Confirmed By:Matthew Navarro
[2020-11-02] MEDS ORDERED: FUROSEMIDE 40 MG in SYRINGE 0 ML IV ONE (18:42)
--- NOTE | 2020-11-02 18:50 | XCELERA ---
[id number]
[2020-11-02] MEDS ORDERED: ATORVASTATIN 20 MG TAB PO SCH (21:00)
[2020-11-02] MEDS ORDERED: NORTRIPTYLINE HCL 25 MG CAP PO SCH (21:00)
[2020-11-02] MEDS: UMECLIDINIUM/VILANTEROL 62.5/25MCG 7 PUFFS/INHALER INH SCH (21:28)
[2020-11-02] MEDS: GABAPENTIN 300 MG CAP PO SCH (21:28)
[2020-11-03] MEDS: CEFEPIME 2,000 MG in SYRINGE 0 ML IV SCH (01:37)
[2020-11-03] MEDS: metroNIDAZOLE 500 MG/100 ML BAG IV SCH ×3 (01:37→17:40)
[2020-11-03 01:44] LABS: Partial Thromboplastin Ratio 2.2
[2020-11-03 01:47] LABS: Partial Thromboplastin Time 58.7 Seconds (21.0-31.0)
[2020-11-03 04:57] LABS: Hematocrit (blood only) 25.9 % (37-47); Hemoglobin 8.6 g/dL (12.0-16.0); Mean Corpuscular Hemoglobin 30.9 pg (25-34); Mean Corpuscular Hgb Conc 33.2 g/dL (32-36); Mean Corpuscular Volume 93.2 fL (80-100); Mean Platelet Volume 9.2 fL (7.4-10.4); Platelet Count 107 K/uL (130-400); RDW Coefficient of Variation 14.2 % (11.5-14.5); RDW Standard Deviation 48.7 fL (36.4-46.3); Red Blood Count 2.78 M/uL (4.2-5.4); White Blood Count 8.86 K/uL (4.8-10.8)
[2020-11-03 05:14] LABS: INR 1.2 (0.9-1.1); Partial Thromboplastin Ratio 2.1; Prothrombin Time 12.4 Seconds (9.0-12.0)
[2020-11-03 05:24] LABS: Reticulocyte % < 0.5 % (0.5-2.0); Reticulocytes # < 0.02 10^6/uL (0.02-0.10)
[2020-11-03 05:27] LABS: Eosinophils # (auto) 0.01 K/uL (0-0.5); Eosinophils % (auto) 0.1 %; Immature Granulocytes # (auto) 0.04 K/uL (0.00-0.02); Immature Granulocytes % (auto) 0.5 %; Lymphocytes # (auto) 0.65 K/uL (1.2-3.4); Lymphocytes % (auto) 7.3 %; Monocytes # (auto) 0.05 K/uL (0.11-0.59); Monocytes % (auto) 0.6 %; Neutrophils # (auto) 8.11 K/uL (1.4-6.5); Neutrophils % (auto) 91.5 %; Toxic Vacuolation Occasional
[2020-11-03 05:33] LABS: Alanine Aminotransferase 18 U/L (12-78); Albumin Globulin Ratio 0.5 (0.9-2); Albumin Level 1.9 gm/dl (3.4-5.0); Alkaline Phosphatase 217 U/L (45-117); Aspartate Aminotransferase 30 U/L (15-37); BUN Creatinine Ratio 23.6 (10-20); Bilirubin,Total 0.9 mg/dl (0.2-1); Blood Urea Nitrogen 40 mg/dl (7-18); Carbon Dioxide 28 mmol/L (21-32); Chloride 102 mmol/L (98-107); Creatinine Clr Calc Pharmacy 27.8 ml/min; Est GFR (African American) 33.6 ml/min; Globulin 3.6 gm/dl (2.5-4.0); Glucose 117 mg/dl (70-99); Magnesium 1.6 mg/dl (1.8-2.4); NT Pro B Type Natriuretic Pept > 35000 pg/ml (0-1800); Partial Thromboplastin Time 55.9 Seconds (21.0-31.0); Phosphorus 2.2 mg/dl (2.5-4.9); Sodium 134 mmol/L (136-145); Total Protein 5.5 gm/dl (6.4-8.2)
[2020-11-03] MEDS: MAGNESIUM SULFATE / D5W 1 GM/100 ML BAG IV SCH ×2 (06:44→08:23)
[2020-11-03 07:09] LABS: Potassium 3.1 mmol/L (3.5-5.1)
[2020-11-03] MEDS ORDERED: POTASSIUM PHOS 3 MMOL/1 ML INFUSION IV STA (07:36)
[2020-11-03] MEDS: NOREPINEPHRINE/D5W 8 MG/508 ML BAG IV SCH ×3 (07:43→23:20)
[2020-11-03] MEDS ORDERED: POTASSIUM PHOSPHATE 15 MMOL in SODIUM CHLORIDE 0.9% 250 ML IV STA (07:45)
--- NOTE | 2020-11-03 07:50 | Critical Care Progress Note ---
Date of Service November 03, 2020 Assessment & Plan (1) Pulmonary embolism, bilateral: Reason Critically Ill: Dora is a very pleasant 75-year-old female with a notable past medical history of pancreatic adenocarcinoma status post ERCP in August with placement of common bile duct stent (in the context of sepsis), COPD, hyperparathyroidism, dyslipidemia, hypertension who presented to [facility] for evaluation of chest congestion, shortness of breath, generalized weakness, decreased oral intake x several days, subsequently found to be hypotensive, tachycardic, and febrile in the context of a fluid-filled CBD stent on CT-A/P and bilateral pulmonary emboli. She requires ICU-level care for management of her shock. Neuro - [facility] ICU: NEGATIVE Sedation: None Analgesia: None Metabolic Encephalopathy * Mild - patient mentating and completely alert and oriented, but somnolent * Suspect this is secondary to hypoperfusion in setting of shock and likely inflammatory / septic component, too * 5-point drop in H&H from 10/26 noted -- may also be contributory, no obvious source at present * No major lyte abnormalities * Treatment as below. Cardiac / ID / Pulm - Shock * Patient presenting with hypotension, tachycardia, fever, good peripheral perfusion in setting of intraductal dilatation (around previous stent) and bilateral pulmonary emboli * Still requiring pressors at present * In setting of presenting symptoms, suspect this is most likely secondary to septic shock --> Source likely hepatic / intraductal, CT-A/P revealing of dilatation around previous stent --> ERCP 11/02 demonstrated occluded stent of biliary tree - new stent placed into CBD by GI --> BCX demonstrating GNR x 1 so far, await speciation / sensitivity [[ has h/o Klebsiella bacteremia ]] --> Continue intravenous cefepime and flagyl -- will require for at least 2 weeks --> Add daptomycin in setting of possible AoV vegetation --> Maintain MAP > 65 --> Maintain UOP > 0.5cc/kg/hr --> Repeat BCX ordered for tomorrow morning * Pulmonary emboli also considered within this process -- BNP > 25k --> Echo demonstrating moderately reduced RV function and elevated pressures --> At present, lower suspicion this is cause of underlying shock Pulmonary Emboli * Segmental and subsegmental b/l pulmonary emboli noted on admission CTA-Chest * Echo demonstrating moderately reduced RV function and elevated pressures * LE Dopplers: No evidence of DVT * Lovenox once-daily renal dosing (from heparin gtt) HFrEF * TTE demonstrating moderate-severe reduction in LV function -- LVEF 25-30% * Large fibrinous lesion attached to the aortic valve * CPAP prn Aortic Valve Lesion * Fibrinous AV lesion discovered on TTE 11/02 in setting of suspected septic shock * Concerning for endocarditis vegetation * Consult cardiology for aid in management - specifically, further imaging (LITO), management (in setting of HFrEF, pulmonary emboli) * Add daptomycin to pre-existing cefepime, Flagyl regimine * Continue ABX therapy for now - await speciation (GNR) GI - Possible Cholangitis * Patient with h/o pancreatic adenocarcinoma, s/p ERCP with metal CBD stent in August 2020 * In setting of HoTN, tachycardia, +BCX (GNR), transaminitis, hyperbilirubinemia, and suspected septic shock, concern that this may be source * CT-A/P notable for intraductal dilatation and fluid-filled stent * ERCP demonstrating occluded stent of biliary tree - new stent placed into CBD by GI * Clear liquid diet per GI * Initiate ursodiol 300mg PO b.i.d. -- added RENAL/LYTES - Acute Kidney Injury * Baseline Cr 1.0 - 1.2 on chart review (to 2018) * BUN/Cr revealing today: 40 / 1.69 -- minimal improvement * Suspect this is prerenal in nature in setting of ongoing shock, possible infection * Cautious IVF in setting of volume overload * Avoid nephrotoxic medications - * Watson - monitor UOP * No acute needs otherwise ENDO - * ICU Hyperglycemia protocol HEME - Normocytic Anemia * Borderline macrocytic anemia appreciated on admission - 9.2 --> 8.6 today * This is nearly a 5-point drop from 10/26 (1 week ago), which was 13.2 * In setting of recent chemotherapy and active infection --> PT/INR 12.1 / 1.2 --> Reticulocytes - extremely low. LINES/IV ACCESS - PIVs intact. DVT PROPHYLAXIS - Transition back to Lovenox (therapeutic, once daily dosing based on renal fxn) Thank you for allowing us to be part of this patient's care. Please refer to Dr. Jorge's documentation for any further recommendations. (2) Venous insufficiency: (3) Impaired fasting glucose: (4) Hepatic steatosis: (5) Dyslipidemia: (6) Chronic obstructive pulmonary disease: (7) Hyperparathyroidism, primary: (8) Chronic osteoarthritis: (9) Encounter for pre-operative examination: (10) Adenocarcinoma: (11) Mass of pancreas: (12) Asymptomatic PVCs: (13) Secondary polycythemia: (14) DNR (do not resuscitate): (15) Hypomagnesemia: (16) Pancreatic adenocarcinoma: (17) Transaminitis: (18) Acute kidney injury: Admission and Anticipated Discharge Date Admission Date: November 02, 2020 Supervising Physician Co-Signing Physician Notes Dr. Benito was resident physician during care of patient. I separately evaluated patient for gn portions of the history and the exam. I was present during the critical portion of medical decision making, and I discussed the case with the resident. I generally agree with the findings and plan. Gram-negative septic shock, still requiring vasoactive medication administration. Lesion on aortic valve will have cardiology consultation. Continue antibiotics at this time, awaiting speciation. Add Dapto for the vegetation. Transition back to Lovenox for anticoagulation, once a day dosing based off of renal function, continue to monitor renal function. Senna for constipation has not had bowel movement since 10/26. I have personally spent 40 minutes of critical care time in the direct management of this patient. This is a life/limb threatening event. This includes time spent evaluating patient, direct bedside care, chart review, placing orders, interpretation of diagnostic studies, discussion with consultants, patient, and/or family members regarding treatment decisions, as well as other required patient management activities. This time is exclusive of all separately billable procedures, and teaching time and separate from and in addition to any other critical care service time. Subjective No acute events overnight. Patient actually reports feeling much better this morningshe says her breathing is easier, less abdominal pain, and she has a little more energy. She still endorses feeling weak. Denies any chest pain, palpitations, shortness of breath. Of note, she was given 40 mg Lasix IV last night after demonstrating signs of fluid overload on exam. Management was augmented with BiPAP, was subsequently transitioned to OxiMask Review of Systems Review of Systems: Constitutional: Denies fever, chills Eyes: Denies double vision ENT: Denies ear pain, sore throat, sinus pain Cardiovascular: Denies Chest pain, chest pressure, palpitations, extremity swelling Respiratory: Denies shortness of breath, cough, sputum production, difficulty breathing Gastrointestinal: Denies nausea, vomiting, constipation, diarrhea Genitourinary: Denies urinary symptoms Musculoskeletal: Denies weakness, muscle aches/pain Integumentary: Denies rash, lesions, bruising Neurological: Denies headache, numbness, tingling, focal weakness Physical Exam Physical Exam: General: Frail and somnolent appearing 75-year-old female who is lying back in her hospital bed, asleep, upon my arrival. She does awaken easily. She has more energy than yesterday. She is fully alert and oriented throughout her discussion. HEENT: NCAT. Eyes - Sclera are white, anicteric, and without injection. PERRL. Cardiac: Normal rate and regular rhythm with intermittent ectopy; S1 and S2 present with no murmurs, rubs, or gallops. JVP approx 4 finger breadths above the R clavicle. Pulmonary: Mildly increased respiratory effort with symmetric expansion of the chest. No use of accessory muscles. Lungs do demonstrate improved inspiratory crackles alongside expiratory wheezes, more appreciable in the left compared to the right, but present globally. Abdominal: Bowel sounds are distant in sound hyperstimulated. There is mild tenderness to palpation in the epigastric region, as well as in the right upper quadrant region. There is no involuntary guarding. No rebound tenderness. Lindquist's positive. Extremities: Upper and lower extremities are warm and well perfused. Upper extremity pulses 2+ bilaterally. 2+ pitting edema in the LEs. Capillary refill was approximately 2 seconds. Results & Data Results & Data ([facility]) Vital Signs (Past 12 Hours) Vital Signs Temp Pulse Pulse Resp BP BP Pulse Ox 11/03/20 06:00 70 24 91/45 L 96 11/03/20 05:30 36.5 C 72 25 H 92/53 L 96 11/03/20 05:00 36.6 C 67 19 92/44 L 95 11/03/20 04:30 70 24 86/46 L 94 11/03/20 04:00 36.5 C 77 18 101/56 L 96 11/03/20 03:30 70 19 89/53 L 96 11/03/20 03:00 70 24 88/53 L 95 11/03/20 02:30 36.5 C 73 26 H 94/54 L 94 11/03/20 02:00 36.5 C 70 23 88/53 L 94 11/03/20 01:30 36.5 C 71 24 91/59 L 97 11/03/20 01:00 36.3 C L 74 21 97/70 L 96 11/03/20 00:31 35.9 C L 84 23 110/56 L 95 11/03/20 00:04 76 13 99 11/03/20 00:00 36.2 C L 76 15 102/54 L 99 11/02/20 23:30 36.2 C L 66 12 99/48 L 99 11/02/20 23:11 76 11/02/20 23:00 36.2 C L 78 12 97/53 L 99 11/02/20 22:43 36.2 C L 75 14 105/54 L 98 11/02/20 22:28 36.2 C L 74 15 106/54 L 99 11/02/20 22:13 36.2 C L 75 11 L 99/44 L 99 11/02/20 21:58 36.2 C L 68 21 108/49 L 98 11/02/20 21:43 36.2 C L 77 21 100/51 L 98 11/02/20 21:28 36.1 C L 76 14 100/65 99 11/02/20 21:13 36.2 C L 75 13 102/57 L 99 11/02/20 20:58 36.2 C L 75 16 99/51 L 99 11/02/20 20:43 36.3 C L 72 14 97/71 L 100 11/02/20 20:28 36.3 C L 74 14 99/58 L 100 11/02/20 20:22 75 14 93 11/02/20 20:13 36.3 C L 72 18 94/46 L 93 11/02/20 19:58 36.3 C L 75 20 102/46 L 91 11/02/20 19:43 36.3 C L 83 24 106/68 90 Resident Activity Tracking Resident Involvement: Resident Care Provided Care Provided: Adult Hospital Medicine (1) Chronic obstructive pulmonary disease COPD type: unspecified COPD Qualified Code(s): J44.9 - Chronic obstructive pulmonary disease, unspecified
[2020-11-03] MEDS: ASCORBIC ACID 500 MG TAB PO SCH (07:55)
[2020-11-03] MEDS: CHOLECALCIFEROL 1,000 UNITS 25 MCG TAB PO SCH (07:55)
[2020-11-03] MEDS: PANTOprazole 40 MG TAB PO SCH (07:56)
[2020-11-03] MEDS: ursodioL 300 MG CAP PO SCH ×2 (07:59→19:54)
--- NOTE | 2020-11-03 08:13 | XRay Report ---
XR chest 1V portable HISTORY: Shortness of breath. f/u COMPARISON: Chest 11/01/2020. FINDINGS: There are low lung volumes. No pneumothorax. Left subclavian Port-A-Cath runs at the SVC. S mall right and moderate left pleural effusions have slightly increased in size. Left basilar densitie s persist. The heart remains borderline enlarged. IMPRESSION: Slight increase in size in the small right and moderate left pleural effusions. ACT 112: Negative or not required by law. Electronically signed by: Kishor Taylor M.D. 11/03/2020 8:12 AM
--- NOTE | 2020-11-03 08:46 | Gastroenterology Progress Note ---
Date of Service November 03, 2020 Assessment & Plan (1) Pancreatic adenocarcinoma: 75 year old female with w/ panc cancer s/p EUS/ERCP in August w/ CBD stent placed, metal, admitted with weakness, SOB. New bilateral PEs on imaging but also note of fluid filled CBD, elevated LFTs and fevers overnight despite ABX. This AM she is febrile, hypotensive and tachycardic. S/P ERCP w/ evidence of occluded biliary stent and cholangitis clinically improved, tolerating PO intake w/ improving LFTs No GI contraindication to diet Recall GI if needed Continue IV hydration Continue broad-spectrum antibiotic coverage for total of 14 days Please start a bile acid agent such as Actigall 300 mg twice daily indefinitely to try and prevent recurrent stent occlusion Thank you for allowing us to participate in the care of this patient. Please call with any acute changes, questions or concerns. Please see addendum below with additional recommendation from my supervising physician. Admission and Anticipated Discharge Date Admission Date: November 02, 2020 Supervising Physician Co-Signing Physician Notes s/p ercp yesterday with clinical improvement today - off pressors, hemodynamics improved complete abx course and start actigall. Subjective Pt was seen and evaluated, chart reviewed. S/P ERCP, evidence of cholangitis. Feeling well this AM No abd pain. More awake. No nausea, vomiting. Tolerating PO intake. No fevers. LFTs improving Review of Systems Review of Systems: All systems reviewed & are unremarkable except as noted in HPI & below Physical Exam Constitutional: WD/WN, vitals as above Eyes: PERRL, conjunctivae normal, anicteric sclerae Neck: trachea midline, no thyromegaly Gastrointestinal (Abdomen): normal bowel sounds, soft, nontender, no hepatosplenomegaly Skin: no rashes, warm and dry Results & Data ([facility]) Vital Signs (Past 12 Hours) Vital Signs Temp Pulse Pulse Resp BP BP Pulse Ox 11/03/20 08:42 36.1 C L 11/03/20 08:01 36.6 C 80 19 103/50 L 92 11/03/20 07:00 36.6 C 79 16 98/53 L 94 11/03/20 06:00 70 24 91/45 L 96 11/03/20 05:30 36.5 C 72 25 H 92/53 L 96 11/03/20 05:00 36.6 C 67 19 92/44 L 95 11/03/20 04:30 70 24 86/46 L 94 11/03/20 04:00 36.5 C 77 18 101/56 L 96 11/03/20 03:30 70 19 89/53 L 96 11/03/20 03:00 70 24 88/53 L 95 11/03/20 02:30 36.5 C 73 26 H 94/54 L 94 11/03/20 02:00 36.5 C 70 23 88/53 L 94 11/03/20 01:30 36.5 C 71 24 91/59 L 97 11/03/20 01:00 36.3 C L 74 21 97/70 L 96 11/03/20 00:31 35.9 C L 84 23 110/56 L 95 11/03/20 00:04 76 13 99 11/03/20 00:00 36.2 C L 76 15 102/54 L 99 11/02/20 23:30 36.2 C L 66 12 99/48 L 99 11/02/20 23:11 76 11/02/20 23:00 36.2 C L 78 12 97/53 L 99 11/02/20 22:43 36.2 C L 75 14 105/54 L 98 11/02/20 22:28 36.2 C L 74 15 106/54 L 99 11/02/20 22:13 36.2 C L 75 11 L 99/44 L 99 11/02/20 21:58 36.2 C L 68 21 108/49 L 98 11/02/20 21:43 36.2 C L 77 21 100/51 L 98 11/02/20 21:28 36.1 C L 76 14 100/65 99 11/02/20 21:13 36.2 C L 75 13 102/57 L 99 11/02/20 20:58 36.2 C L 75 16 99/51 L 99 11/02/20 20:43 36.3 C L 72 14 97/71 L 100 Laboratory Results 11/03/20 11/03/20 11/03/20 Range/Units 04:25 04:25 04:25 WBC (4.8-10.8) K/uL RBC (4.2-5.4) M/uL Hgb (12.0-16.0) g/dL Hct (37-47) % MCV (80-100) fL MCH (25-34) pg MCHC (32-36) g/dL RDW Std Deviation (36.4-46.3) fL RDW Coeff of Deana (11.5-14.5) % Plt Count (130-400) K/uL MPV (7.4-10.4) fL Immature Gran % (Auto) % Neut % (Auto) % Lymph % (Auto) % Darke % (Auto) % Eos % (Auto) % Baso % (Auto) % Reticulocyte % (Auto) (0.5-2.0) % Neut # (Auto) (1.4-6.5) K/uL Lymph # (Auto) (1.2-3.4) K/uL Darke # (Auto) (0.11-0.59) K/uL Eos # (Auto) (0-0.5) K/uL Baso # (Auto) (0-0.2) K/uL Reticulocyte # (0.02-0.10) 10^6/uL Immature Gran # (Auto) (0.00-0.02) K/uL Hypersegmented Neuts Toxic Granulation Toxic Vacuolation PT 12.4 H (9.0-12.0) Seconds INR 1.2 H (0.9-1.1) APTT 55.9 H* PTT Ratio 2.1 Fibrin Degrad Products (<10) mcg/ml Sodium 134 L (136-145) mmol/L Potassium 3.1 L D (3.5-5.1) mmol/L Chloride 102 (98-107) mmol/L Carbon Dioxide 28 (21-32) mmol/L Anion Gap 4.0 (3-11) BUN 40 H (7-18) mg/dl Creatinine 1.69 H (0.6-1.2) mg/dl Est Cr Clr Drug Dosing 27.8 ml/min Est GFR ( Amer) 33.6 ml/min Est GFR (Non-Af Amer) 29.0 ml/min BUN/Creatinine Ratio 23.6 H (10-20) Glucose 117 H (70-99) mg/dl POC Glucose (70-99) mg/dl Lactate (0.4-2.0) mmol/L Calcium 8.0 L (8.5-10.1) mg/dl Phosphorus 2.2 L (2.5-4.9) mg/dl Magnesium 1.6 L (1.8-2.4) mg/dl Total Bilirubin 0.9 D (0.2-1) mg/dl AST 30 (15-37) U/L ALT 18 (12-78) U/L Alkaline Phosphatase 217 H (45-117) U/L Ammonia (11-32) umol/L NT-Pro-B Natriuret Pep > 86520 H (0-1800) pg/ml Total Protein 5.5 L (6.4-8.2) gm/dl Albumin 1.9 L (3.4-5.0) gm/dl Globulin 3.6 (2.5-4.0) gm/dl Albumin/Globulin Ratio 0.5 L (0.9-2) Lipase (73-393) U/L Procalcitonin 3.48 H (0-0.5) ng/ml Urine Color Urine Appearance (Clear) Urine pH (4.5-7.5) Ur Specific [place] (1.000-1.030) Urine Protein (Negative) Urine Glucose (UA) (Negative) Urine Ketones (Negative) Urine Blood (Negative) Urine Nitrite (Negative) Urine Bilirubin (Negative) Urine Urobilinogen (Negative) Ur Leukocyte Esterase (Negative) Urine WBC (Auto) (0-5) /hpf Urine RBC (Auto) (0-4) /hpf U Hyaline Cast (Auto) U Epithel Cells (Auto) (0-5) /lpf Urine Bacteria (Auto) (Negative) Calcium Oxalate Crystal (None Prsent) Urine Yeast Urine Osmolality (500-800) mOsm/kg Ur Random Creatinine mg/dl Urine Sodium mmol/L Urine Potassium mmol/L Urine Chloride mmol/L Nasal Screen MRSA (PCR) (Negative) Blood Type Antibody Screen 11/03/20 11/03/20 11/03/20 Range/Units 04:25 01:17 00:50 WBC 8.86 (4.8-10.8) K/uL RBC 2.78 L (4.2-5.4) M/uL Hgb 8.6 L (12.0-16.0) g/dL Hct 25.9 L (37-47) % MCV 93.2 (80-100) fL MCH 30.9 (25-34) pg MCHC 33.2 (32-36) g/dL RDW Std Deviation 48.7 H (36.4-46.3) fL RDW Coeff of Deana 14.2 (11.5-14.5) % Plt Count 107 L (130-400) K/uL MPV 9.2 (7.4-10.4) fL Immature Gran % (Auto) 0.5 % Neut % (Auto) 91.5 % Lymph % (Auto) 7.3 % Darke % (Auto) 0.6 % Eos % (Auto) 0.1 % Baso % (Auto) 0.0 % Reticulocyte % (Auto) < 0.5 L (0.5-2.0) % Neut # (Auto) 8.11 H (1.4-6.5) K/uL Lymph # (Auto) 0.65 L (1.2-3.4) K/uL Darke # (Auto) 0.05 L (0.11-0.59) K/uL Eos # (Auto) 0.01 (0-0.5) K/uL Baso # (Auto) 0.00 (0-0.2) K/uL Reticulocyte # < 0.02 L (0.02-0.10) 10^6/uL Immature Gran # (Auto) 0.04 H (0.00-0.02) K/uL Hypersegmented Neuts 1+ Toxic Granulation Toxic Vacuolation Occasional PT (9.0-12.0) Seconds INR (0.9-1.1) APTT 58.7 H* PTT Ratio 2.2 Fibrin Degrad Products (<10) mcg/ml Sodium (136-145) mmol/L Potassium (3.5-5.1) mmol/L Chloride (98-107) mmol/L Carbon Dioxide (21-32) mmol/L Anion Gap (3-11) BUN (7-18) mg/dl Creatinine (0.6-1.2) mg/dl Est Cr Clr Drug Dosing ml/min Est GFR ( Amer) ml/min Est GFR (Non-Af Amer) ml/min BUN/Creatinine Ratio (10-20) Glucose (70-99) mg/dl POC Glucose 138 H (70-99) mg/dl Lactate (0.4-2.0) mmol/L Calcium (8.5-10.1) mg/dl Phosphorus (2.5-4.9) mg/dl Magnesium (1.8-2.4) mg/dl Total Bilirubin (0.2-1) mg/dl AST (15-37) U/L ALT (12-78) U/L Alkaline Phosphatase (45-117) U/L Ammonia (11-32) umol/L NT-Pro-B Natriuret Pep (0-1800) pg/ml Total Protein (6.4-8.2) gm/dl Albumin (3.4-5.0) gm/dl Globulin (2.5-4.0) gm/dl Albumin/Globulin Ratio (0.9-2) Lipase (73-393) U/L Procalcitonin (0-0.5) ng/ml Urine Color Urine Appearance (Clear) Urine pH (4.5-7.5) Ur Specific [place] (1.000-1.030) Urine Protein (Negative) Urine Glucose (UA) (Negative) Urine Ketones (Negative) Urine Blood (Negative) Urine Nitrite (Negative) Urine Bilirubin (Negative) Urine Urobilinogen (Negative) Ur Leukocyte Esterase (Negative) Urine WBC (Auto) (0-5) /hpf Urine RBC (Auto) (0-4) /hpf U Hyaline Cast (Auto) U Epithel Cells (Auto) (0-5) /lpf Urine Bacteria (Auto) (Negative) Calcium Oxalate Crystal (None Prsent) Urine Yeast Urine Osmolality (500-800) mOsm/kg Ur Random Creatinine mg/dl Urine Sodium mmol/L Urine Potassium mmol/L Urine Chloride mmol/L Nasal Screen MRSA (PCR) (Negative) Blood Type Antibody Screen 11/03/20 11/02/20 11/02/20 Range/Units 00:15 18:00 13:35 WBC (4.8-10.8) K/uL RBC (4.2-5.4) M/uL Hgb (12.0-16.0) g/dL Hct (37-47) % MCV (80-100) fL MCH (25-34) pg MCHC (32-36) g/dL RDW Std Deviation (36.4-46.3) fL RDW Coeff of Deana (11.5-14.5) % Plt Count (130-400) K/uL MPV (7.4-10.4) fL Immature Gran % (Auto) % Neut % (Auto) % Lymph % (Auto) % Darke % (Auto) % Eos % (Auto) % Baso % (Auto) % Reticulocyte % (Auto) (0.5-2.0) % Neut # (Auto) (1.4-6.5) K/uL Lymph # (Auto) (1.2-3.4) K/uL Darke # (Auto) (0.11-0.59) K/uL Eos # (Auto) (0-0.5) K/uL Baso # (Auto) (0-0.2) K/uL Reticulocyte # (0.02-0.10) 10^6/uL Immature Gran # (Auto) (0.00-0.02) K/uL Hypersegmented Neuts Toxic Granulation Toxic Vacuolation PT (9.0-12.0) Seconds INR (0.9-1.1) APTT Cancelled PTT Ratio Cancelled Fibrin Degrad Products (<10) mcg/ml Sodium (136-145) mmol/L Potassium (3.5-5.1) mmol/L Chloride (98-107) mmol/L Carbon Dioxide (21-32) mmol/L Anion Gap (3-11) BUN (7-18) mg/dl Creatinine (0.6-1.2) mg/dl Est Cr Clr Drug Dosing ml/min Est GFR ( Amer) ml/min Est GFR (Non-Af Amer) ml/min BUN/Creatinine Ratio (10-20) Glucose (70-99) mg/dl POC Glucose 182 H (70-99) mg/dl Lactate (0.4-2.0) mmol/L Calcium (8.5-10.1) mg/dl Phosphorus (2.5-4.9) mg/dl Magnesium (1.8-2.4) mg/dl Total Bilirubin (0.2-1) mg/dl AST (15-37) U/L ALT (12-78) U/L Alkaline Phosphatase (45-117) U/L Ammonia (11-32) umol/L NT-Pro-B Natriuret Pep (0-1800) pg/ml Total Protein (6.4-8.2) gm/dl Albumin (3.4-5.0) gm/dl Globulin (2.5-4.0) gm/dl Albumin/Globulin Ratio (0.9-2) Lipase (73-393) U/L Procalcitonin (0-0.5) ng/ml Urine Color Urine Appearance (Clear) Urine pH (4.5-7.5) Ur Specific [place] (1.000-1.030) Urine Protein (Negative) Urine Glucose (UA) (Negative) Urine Ketones (Negative) Urine Blood (Negative) Urine Nitrite (Negative) Urine Bilirubin (Negative) Urine Urobilinogen (Negative) Ur Leukocyte Esterase (Negative) Urine WBC (Auto) (0-5) /hpf Urine RBC (Auto) (0-4) /hpf U Hyaline Cast (Auto) U Epithel Cells (Auto) (0-5) /lpf Urine Bacteria (Auto) (Negative) Calcium Oxalate Crystal (None Prsent) Urine Yeast Urine Osmolality (500-800) mOsm/kg Ur Random Creatinine 149.0 mg/dl Urine Sodium < 5 mmol/L Urine Potassium 39.6 mmol/L Urine Chloride 15 mmol/L Nasal Screen MRSA (PCR) (Negative) Blood Type Antibody Screen 11/02/20 11/02/20 11/02/20 Range/Units 13:35 13:35 13:08 WBC (4.8-10.8) K/uL RBC (4.2-5.4) M/uL Hgb (12.0-16.0) g/dL Hct (37-47) % MCV (80-100) fL MCH (25-34) pg MCHC (32-36) g/dL RDW Std Deviation (36.4-46.3) fL RDW Coeff of Deana (11.5-14.5) % Plt Count (130-400) K/uL MPV (7.4-10.4) fL Immature Gran % (Auto) % Neut % (Auto) % Lymph % (Auto) % Darke % (Auto) % Eos % (Auto) % Baso % (Auto) % Reticulocyte % (Auto) (0.5-2.0) % Neut # (Auto) (1.4-6.5) K/uL Lymph # (Auto) (1.2-3.4) K/uL Darke # (Auto) (0.11-0.59) K/uL Eos # (Auto) (0-0.5) K/uL Baso # (Auto) (0-0.2) K/uL Reticulocyte # (0.02-0.10) 10^6/uL Immature Gran # (Auto) (0.00-0.02) K/uL Hypersegmented Neuts Toxic Granulation Toxic Vacuolation PT (9.0-12.0) Seconds INR (0.9-1.1) APTT PTT Ratio Fibrin Degrad Products (<10) mcg/ml Sodium (136-145) mmol/L Potassium (3.5-5.1) mmol/L Chloride (98-107) mmol/L Carbon Dioxide (21-32) mmol/L Anion Gap (3-11) BUN (7-18) mg/dl Creatinine (0.6-1.2) mg/dl Est Cr Clr Drug Dosing ml/min Est GFR ( Amer) ml/min Est GFR (Non-Af Amer) ml/min BUN/Creatinine Ratio (10-20) Glucose (70-99) mg/dl POC Glucose (70-99) mg/dl Lactate (0.4-2.0) mmol/L Calcium (8.5-10.1) mg/dl Phosphorus (2.5-4.9) mg/dl Magnesium (1.8-2.4) mg/dl Total Bilirubin (0.2-1) mg/dl AST (15-37) U/L ALT (12-78) U/L Alkaline Phosphatase (45-117) U/L Ammonia 22.8 (11-32) umol/L NT-Pro-B Natriuret Pep (0-1800) pg/ml Total Protein (6.4-8.2) gm/dl Albumin (3.4-5.0) gm/dl Globulin (2.5-4.0) gm/dl Albumin/Globulin Ratio (0.9-2) Lipase (73-393) U/L Procalcitonin (0-0.5) ng/ml Urine Color Dark Yellow Urine Appearance Clear (Clear) Urine pH 5.0 (4.5-7.5) Ur Specific [place] 1.041 H (1.000-1.030) Urine Protein 1+ H (Negative) Urine Glucose (UA) Negative (Negative) Urine Ketones Trace H (Negative) Urine Blood Negative (Negative) Urine Nitrite Negative (Negative) Urine Bilirubin 1+ H (Negative) Urine Urobilinogen Negative (Negative) Ur Leukocyte Esterase Negative (Negative) Urine WBC (Auto) 1-5 (0-5) /hpf Urine RBC (Auto) 5-10 H (0-4) /hpf U Hyaline Cast (Auto) Not Reportable U Epithel Cells (Auto) 10-20 H (0-5) /lpf Urine Bacteria (Auto) Negative (Negative) Calcium Oxalate Crystal Present A (None Prsent) Urine Yeast Not Reportable Urine Osmolality 398 L (500-800) mOsm/kg Ur Random Creatinine mg/dl Urine Sodium mmol/L Urine Potassium mmol/L Urine Chloride mmol/L Nasal Screen MRSA (PCR) (Negative) Blood Type Antibody Screen 11/02/20 11/02/20 11/02/20 Range/Units 13:08 13:06 13:06 WBC (4.8-10.8) K/uL RBC (4.2-5.4) M/uL Hgb (12.0-16.0) g/dL Hct (37-47) % MCV (80-100) fL MCH (25-34) pg MCHC (32-36) g/dL RDW Std Deviation (36.4-46.3) fL RDW Coeff of Deana (11.5-14.5) % Plt Count (130-400) K/uL MPV (7.4-10.4) fL Immature Gran % (Auto) % Neut % (Auto) % Lymph % (Auto) % Darke % (Auto) % Eos % (Auto) % Baso % (Auto) % Reticulocyte % (Auto) (0.5-2.0) % Neut # (Auto) (1.4-6.5) K/uL Lymph # (Auto) (1.2-3.4) K/uL Darke # (Auto) (0.11-0.59) K/uL Eos # (Auto) (0-0.5) K/uL Baso # (Auto) (0-0.2) K/uL Reticulocyte # (0.02-0.10) 10^6/uL Immature Gran # (Auto) (0.00-0.02) K/uL Hypersegmented Neuts Toxic Granulation Toxic Vacuolation PT (9.0-12.0) Seconds INR (0.9-1.1) APTT PTT Ratio Fibrin Degrad Products 10-40 H (<10) mcg/ml Sodium 135 L (136-145) mmol/L Potassium 3.8 (3.5-5.1) mmol/L Chloride 101 (98-107) mmol/L Carbon Dioxide 27 (21-32) mmol/L Anion Gap 7.0 (3-11) BUN 39 H (7-18) mg/dl Creatinine 1.71 H (0.6-1.2) mg/dl Est Cr Clr Drug Dosing 27.5 ml/min Est GFR ( Amer) 33.1 ml/min Est GFR (Non-Af Amer) 28.6 ml/min BUN/Creatinine Ratio 22.8 H (10-20) Glucose 122 H (70-99) mg/dl POC Glucose (70-99) mg/dl Lactate 1.1 (0.4-2.0) mmol/L Calcium 8.1 L (8.5-10.1) mg/dl Phosphorus (2.5-4.9) mg/dl Magnesium (1.8-2.4) mg/dl Total Bilirubin 1.6 H (0.2-1) mg/dl AST 48 H (15-37) U/L ALT 22 (12-78) U/L Alkaline Phosphatase 235 H (45-117) U/L Ammonia (11-32) umol/L NT-Pro-B Natriuret Pep (0-1800) pg/ml Total Protein 5.7 L (6.4-8.2) gm/dl Albumin 2.0 L (3.4-5.0) gm/dl Globulin 3.7 (2.5-4.0) gm/dl Albumin/Globulin Ratio 0.5 L (0.9-2) Lipase (73-393) U/L Procalcitonin (0-0.5) ng/ml Urine Color Urine Appearance (Clear) Urine pH (4.5-7.5) Ur Specific [place] (1.000-1.030) Urine Protein (Negative) Urine Glucose (UA) (Negative) Urine Ketones (Negative) Urine Blood (Negative) Urine Nitrite (Negative) Urine Bilirubin (Negative) Urine Urobilinogen (Negative) Ur Leukocyte Esterase (Negative) Urine WBC (Auto) (0-5) /hpf Urine RBC (Auto) (0-4) /hpf U Hyaline Cast (Auto) U Epithel Cells (Auto) (0-5) /lpf Urine Bacteria (Auto) (Negative) Calcium Oxalate Crystal (None Prsent) Urine Yeast Urine Osmolality (500-800) mOsm/kg Ur Random Creatinine mg/dl Urine Sodium mmol/L Urine Potassium mmol/L Urine Chloride mmol/L Nasal Screen MRSA (PCR) (Negative) Blood Type Antibody Screen 11/02/20 11/02/20 11/02/20 Range/Units 13:06 11:39 11:15 WBC 7.89 (4.8-10.8) K/uL RBC 2.63 L (4.2-5.4) M/uL Hgb 8.1 L (12.0-16.0) g/dL Hct 25.1 L (37-47) % MCV 95.4 (80-100) fL MCH 30.8 (25-34) pg MCHC 32.3 (32-36) g/dL RDW Std Deviation 50.0 H (36.4-46.3) fL RDW Coeff of Deana 14.5 (11.5-14.5) % Plt Count 112 L (130-400) K/uL MPV 8.9 (7.4-10.4) fL Immature Gran % (Auto) 1.0 % Neut % (Auto) 89.5 % Lymph % (Auto) 8.2 % Darke % (Auto) 1.3 % Eos % (Auto) 0.0 % Baso % (Auto) 0.0 % Reticulocyte % (Auto) (0.5-2.0) % Neut # (Auto) 7.06 H (1.4-6.5) K/uL Lymph # (Auto) 0.65 L (1.2-3.4) K/uL Darke # (Auto) 0.10 L (0.11-0.59) K/uL Eos # (Auto) 0.00 (0-0.5) K/uL Baso # (Auto) 0.00 (0-0.2) K/uL Reticulocyte # (0.02-0.10) 10^6/uL Immature Gran # (Auto) 0.08 H (0.00-0.02) K/uL Hypersegmented Neuts Toxic Granulation 1+ Toxic Vacuolation PT (9.0-12.0) Seconds INR (0.9-1.1) APTT PTT Ratio Fibrin Degrad Products (<10) mcg/ml Sodium (136-145) mmol/L Potassium (3.5-5.1) mmol/L Chloride (98-107) mmol/L Carbon Dioxide (21-32) mmol/L Anion Gap (3-11) BUN (7-18) mg/dl Creatinine (0.6-1.2) mg/dl Est Cr Clr Drug Dosing ml/min Est GFR ( Amer) ml/min Est GFR (Non-Af Amer) ml/min BUN/Creatinine Ratio (10-20) Glucose (70-99) mg/dl POC Glucose (70-99) mg/dl Lactate (0.4-2.0) mmol/L Calcium (8.5-10.1) mg/dl Phosphorus (2.5-4.9) mg/dl Magnesium (1.8-2.4) mg/dl Total Bilirubin (0.2-1) mg/dl AST (15-37) U/L ALT (12-78) U/L Alkaline Phosphatase (45-117) U/L Ammonia (11-32) umol/L NT-Pro-B Natriuret Pep (0-1800) pg/ml Total Protein (6.4-8.2) gm/dl Albumin (3.4-5.0) gm/dl Globulin (2.5-4.0) gm/dl Albumin/Globulin Ratio (0.9-2) Lipase (73-393) U/L Procalcitonin (0-0.5) ng/ml Urine Color Urine Appearance (Clear) Urine pH (4.5-7.5) Ur Specific [place] (1.000-1.030) Urine Protein (Negative) Urine Glucose (UA) (Negative) Urine Ketones (Negative) Urine Blood (Negative) Urine Nitrite (Negative) Urine Bilirubin (Negative) Urine Urobilinogen (Negative) Ur Leukocyte Esterase (Negative) Urine WBC (Auto) (0-5) /hpf Urine RBC (Auto) (0-4) /hpf U Hyaline Cast (Auto) U Epithel Cells (Auto) (0-5) /lpf Urine Bacteria (Auto) (Negative) Calcium Oxalate Crystal (None Prsent) Urine Yeast Urine Osmolality (500-800) mOsm/kg Ur Random Creatinine mg/dl Urine Sodium mmol/L Urine Potassium mmol/L Urine Chloride mmol/L Nasal Screen MRSA (PCR) Negative (Negative) Blood Type A Positive Antibody Screen NEGATIVE 11/02/20 Range/Units 06:52 WBC (4.8-10.8) K/uL RBC (4.2-5.4) M/uL Hgb (12.0-16.0) g/dL Hct (37-47) % MCV (80-100) fL MCH (25-34) pg MCHC (32-36) g/dL RDW Std Deviation (36.4-46.3) fL RDW Coeff of Deana (11.5-14.5) % Plt Count (130-400) K/uL MPV (7.4-10.4) fL Immature Gran % (Auto) % Neut % (Auto) % Lymph % (Auto) % [place] % (Auto) % Eos % (Auto) % Baso % (Auto) % Reticulocyte % (Auto) (0.5-2.0) % Neut # (Auto) (1.4-6.5) K/uL Lymph # (Auto) (1.2-3.4) K/uL Darke # (Auto) (0.11-0.59) K/uL Eos # (Auto) (0-0.5) K/uL Baso # (Auto) (0-0.2) K/uL Reticulocyte # (0.02-0.10) 10^6/uL Immature Gran # (Auto) (0.00-0.02) K/uL Hypersegmented Neuts Toxic Granulation Toxic Vacuolation PT (9.0-12.0) Seconds INR (0.9-1.1) APTT PTT Ratio Fibrin Degrad Products (<10) mcg/ml Sodium (136-145) mmol/L Potassium (3.5-5.1) mmol/L Chloride (98-107) mmol/L Carbon Dioxide (21-32) mmol/L Anion Gap (3-11) BUN (7-18) mg/dl Creatinine (0.6-1.2) mg/dl Est Cr Clr Drug Dosing ml/min Est GFR ( Amer) ml/min Est GFR (Non-Af Amer) ml/min BUN/Creatinine Ratio (10-20) Glucose (70-99) mg/dl POC Glucose (70-99) mg/dl Lactate (0.4-2.0) mmol/L Calcium (8.5-10.1) mg/dl Phosphorus (2.5-4.9) mg/dl Magnesium (1.8-2.4) mg/dl Total Bilirubin (0.2-1) mg/dl AST (15-37) U/L ALT (12-78) U/L Alkaline Phosphatase (45-117) U/L Ammonia (11-32) umol/L NT-Pro-B Natriuret Pep (0-1800) pg/ml Total Protein (6.4-8.2) gm/dl Albumin (3.4-5.0) gm/dl Globulin (2.5-4.0) gm/dl Albumin/Globulin Ratio (0.9-2) Lipase 70 L (73-393) U/L Procalcitonin (0-0.5) ng/ml Urine Color Urine Appearance (Clear) Urine pH (4.5-7.5) Ur Specific [place] (1.000-1.030) Urine Protein (Negative) Urine Glucose (UA) (Negative) Urine Ketones (Negative) Urine Blood (Negative) Urine Nitrite (Negative) Urine Bilirubin (Negative) Urine Urobilinogen (Negative) Ur Leukocyte Esterase (Negative) Urine WBC (Auto) (0-5) /hpf Urine RBC (Auto) (0-4) /hpf U Hyaline Cast (Auto) U Epithel Cells (Auto) (0-5) /lpf Urine Bacteria (Auto) (Negative) Calcium Oxalate Crystal (None Prsent) Urine Yeast Urine Osmolality (500-800) mOsm/kg Ur Random Creatinine mg/dl Urine Sodium mmol/L Urine Potassium mmol/L Urine Chloride mmol/L Nasal Screen MRSA (PCR) (Negative) Blood Type Antibody Screen
[2020-11-03] MEDS ORDERED: ursodioL 300 MG CAP PO SCH (09:00)
--- NOTE | 2020-11-03 09:31 | Billing Data ---
Date of Service November 03, 2020 Coding Level of Care Code Critical Care 1st 30-74 mins
[2020-11-03] MEDS: ENOXAPARIN 80 MG/0.8 ML SYR SQ SCH (10:47)
[2020-11-03] MEDS ORDERED: DAPTOmycin 350 MG in SYRINGE 0 ML IV SCH (11:00)
[2020-11-03] MEDS: SENNA 8.6 MG TAB PO SCH ×2 (11:13→19:53)
[2020-11-03] MEDS ORDERED: CEFEPIME 2,000 MG in SYRINGE 0 ML IV SCH (14:00)
--- NOTE | 2020-11-03 16:05 | Cardiology Consultation ---
Date of Consultation November 03, 2020 Assessment & Plan (1) Aortic valve disorder: She has a lesion attached to the aortic valve. This does not compromise valve function. The nature of the lesion is not well characterized on this study, but is not entirely consistent with an infectious vegetation. 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 I do not believe that additional imaging is required given her comorbidities in the absence of options for treatment. Her current bacteremia is undoubtedly related to her biliary obstruction. If she continues to have bacteremia then this could be presumed endocarditis and more extended treatment would be necessary. She is certainly not a candidate for surgical intervention any valve lesion. There may be an incidence of embolism associated with some other valvular lesions. This is likely mitigated by anticoagulants which she will require in any event for her pulmonary embolus. Again, she is not appear to be a candidate for any surgical intervention even if this was required. (2) Congestive heart failure: Her more concerning issue involves her biventricular failure. This is a complicated situation as her volume status may be tenuous. She will require some volume support in order to improve function of the right ventricle, but is certainly at risk of volume overload and pulmonary vascular congestion with her left heart failure. She seems to have responded well to diuretics earlier today for pulmonary congestion. Of diuretic depending on recurrent pulmonary congestion. The etiology of her ventricular dysfunction is unclear. Unlikely to be ischemic. Remote possibility that this is related to her medications. At this point would seem reasonable to recommend standard therapy for left ventricular dysfunction which would include continuation of metoprolol succinate in the addition of an ARB, possibly as a substitute for her amlodipine. Loop diuretic would be recommended over her hydrochlorothiazide. Obviously, none of these medicines are appropriate currently and she remains hypotensive and hemodynamically unstable. (3) Mitral regurgitation: History of Present Illness Reason for Consultation: Abnormal echocardiogram Requesting Physician: Thong Attending Physician: Jessica Beckman MD History of Present Illness The patient is a 75-year-old woman admitted to the hospital with Gram-negative sepsis related to cholangitis from biliary obstruction due to pancreatic cancer. Patient was also noted to have pulmonary emboli on chest CT. Due to her hypotension and pulmonary emboli she did undergo an echocardiogram which demonstrated several abnormalities including an aortic valve lesion and reduced biventricular function. The patient had previously undergone stenting of her biliary system due to obstruction. Presented with weakness, hypotension and fevers. She was noted to have Gram-negative bacteremia. Patient states that since starting chemotherapy she has performed very little activity. She seems to be quite tired and weak. She did not endorse symptoms of limiting dyspnea recently. She did not have symptoms of chest discomfort or palpitations. She did not endorse symptoms of dizziness or lightheadedness. Her initial hospitalization involved aggressive volume resuscitation and she did develop an element of dyspnea which responded to diuresis. Currently no shortness of breath while lying flat. No current chest pain. No abdominal pain. Allergies Allergy/AdvReac Type Severity Reaction Status Date / Time bupropion Allergy Severe Lip Verified 11/01/20 21:12 swelling bacitracin Allergy Unknown Emaceration Verified 11/01/20 21:12 of skin at site neomycin Allergy Unknown Emaceration Verified 11/01/20 21:12 of skin at site polymyxin B Allergy Unknown Emaceration Verified 11/01/20 21:12 of skin at site Aminoglycosides AdvReac Intermediate Skin Verified 11/01/20 21:12 irritation Home Medications Medication Instructions Recorded Confirmed Type ascorbic acid (vitamin C) 1,000 mg 1 g PO QAM 09/25/18 11/01/20 History tablet omega 3 350 mg-dha 235 mg-epa 90 1 cap PO QAM 09/25/18 11/01/20 History mg-fish oil 597 mg capsule,delay rel (Addison-3) vitamin E 100 unit capsule 100 units PO QAM 10/02/18 11/01/20 History cholecalciferol (vitamin D3) 25 1,000 units PO QAM #90 cap 04/06/19 11/01/20 History mcg (1,000 unit) capsule gabapentin 300 mg capsule 300 mg PO HS #90 cap 02/02/20 11/01/20 Rx aspirin 81 mg tablet,delayed 81 mg PO Q2D 02/03/20 11/01/20 History release atorvastatin 20 mg tablet 20 mg PO HS 02/16/20 11/01/20 History vit C 250 mg-vit E 90 mg-zinc 40 1 tab PO BID 02/16/20 11/01/20 History mg-copper 1 es-frvlcn-fwleed capsule (PreserVision AREDS-2) albuterol sulfate 90 mcg/actuation 2 puff INHALATION Q6H PRN #8.5 g 02/27/20 11/01/20 Rx aerosol inhaler metoprolol succinate 25 mg 25 mg PO QAM 03/11/20 11/01/20 History tablet,extended release 24 hr garlic 1,000 mg PO QAM 04/09/20 11/01/20 History nortriptyline 25 mg capsule 25 - 50 mg PO HS #60 cap 05/25/20 11/01/20 Rx Saccharomyces boulardii 250 mg 250 mg PO QAM 10/20/20 11/01/20 History capsule (Florastor) amlodipine 5 mg tablet 5 mg PO QAM 10/20/20 11/01/20 History hydrochlorothiazide 25 mg tablet 25 mg PO QAM 10/20/20 11/01/20 History pantoprazole 40 mg tablet,delayed 40 mg PO QAM 10/20/20 11/01/20 History release umeclidinium 62.5 mcg-vilanterol 1 inh INHALATION HS 10/20/20 11/01/20 History 25 mcg/actuation powdr for inhalation (Anoro Ellipta) hydrocodone 10 mg-acetaminophen 2 tab PO Q6H PRN 30 Days #240 tab 10/29/20 11/01/20 Rx 325 mg tablet MDD 8 tabs ondansetron HCl 8 mg tablet 8 mg PO Q8H PRN 11/01/20 11/01/20 History prochlorperazine maleate 10 mg 10 mg PO Q6H PRN 11/01/20 11/01/20 History tablet Patient History Medical History (Updated 11/03/20 @ 22:56 by Jessica Beckman MD) Acute kidney injury 08/2020 > resolved Asymptomatic PVCs Chronic obstructive pulmonary disease Chronic osteoarthritis CKD (chronic kidney disease) stage 3, GFR 30-59 ml/min Clostridium difficile diarrhea 2018 Dyslipidemia Hepatic steatosis Hyperparathyroidism, primary Hypertension Impaired fasting glucose Lumbar spinal stenosis Migraine Hx Nocturnal hypoxia 2L/min NC HS Nontoxic multinodular goiter Venous insufficiency Surgical History History of appendectomy History of cholecystectomy History of colonoscopy History of ERCP ERCP with Biliary Stent Placement, EUS (08/23/20): Grade view 1, MAC#3, ETT 7.0 at [facility] History of hip replacement R/L History of knee replacement Right Family History Daughter Family history of diabetes mellitus Other No pertinent family history Social History Smoking Status: Current every day smoker Tobacco Type: Cigarettes Age Started Using Tobacco: 18; packs per day: 0.5; Years Smoked: 55; Cigarettes Per Day: 5; Second Hand Exposure: Yes (SPOUSE SMOKES); Do You Dip or Chew Tobacco: No; Hx Alcohol Use: No Hx Substance Use: No Preferred Language: Bangladeshi Communication Ability: Effective Visual Impairment: No Limitations Watch Caser Required: No Beliefs That Will Affect Care: None marital status: Current Living Situation: Spouse current occupational status: retired 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 HEENT: Sclerae are anicteric. Pupils are equal and reactive to light and accommodation. Extraocular movements were intact. Neuro: Cranial nerves intact Lungs: Lungs are clear to auscultation bilaterally with occasional crackle the right base. There are no rales wheezes or rhonchi. She has normal respiratory effort without use of accessory muscles. There is normal pulmonary excursion. Cardiac: The rhythm was regular. S1 and S2 were normal. Soft holosystolic murmur. The PMI was not markedly displaced on palpation. Extremities: Patient has bilateral radial pulses that are equal in intensity. There is no evidence cyanosis or clubbing. She had compression stockings and sequential compression devices on Skin: There are no rashes noted on examination today. Results & Data ([facility]) Vital Signs (Past 12 Hours) Vital Signs Temp Pulse Pulse Resp BP BP Pulse Ox 11/03/20 13:00 36.7 C 75 17 88/40 L 91 11/03/20 12:00 36.6 C 80 17 104/53 L 94 11/03/20 11:00 36.7 C 70 16 102/54 L 95 11/03/20 10:00 36.8 C 74 16 96/48 L 95 11/03/20 09:01 36.7 C 77 20 96/52 L 92 11/03/20 08:42 36.1 C L 76 11/03/20 08:01 36.6 C 80 19 103/50 L 92 11/03/20 07:00 36.6 C 79 16 98/53 L 94 11/03/20 06:00 70 24 91/45 L 96 11/03/20 05:30 36.5 C 72 25 H 92/53 L 96 11/03/20 05:00 36.6 C 67 19 92/44 L 95 11/03/20 04:30 70 24 86/46 L 94 11/03/20 04:00 36.5 C 77 18 101/56 L 96 Laboratory Results Abnormal Lab Results 11/02/20 11/02/20 11/02/20 13:35 13:35 13:35 WBC RBC Hgb Hct MCV MCH MCHC RDW Std Deviation RDW Coeff of Deana Plt Count MPV Immature Gran % (Auto) Neut % (Auto) Lymph % (Auto) Reeves % (Auto) Eos % (Auto) Baso % (Auto) Reticulocyte % (Auto) Neut # (Auto) Lymph # (Auto) Reeves # (Auto) Eos # (Auto) Baso # (Auto) Reticulocyte # Immature Gran # (Auto) Hypersegmented Neuts Toxic Vacuolation PT INR APTT PTT Ratio Sodium Potassium Chloride Carbon Dioxide Anion Gap BUN Creatinine Est Cr Clr Drug Dosing Est GFR ( Amer) Est GFR (Non-Af Amer) BUN/Creatinine Ratio Glucose POC Glucose Calcium Phosphorus Magnesium Total Bilirubin AST ALT Alkaline Phosphatase NT-Pro-B Natriuret Pep Total Protein Albumin Globulin Albumin/Globulin Ratio Procalcitonin Urine Color Dark Yellow Urine Appearance Clear Urine pH 5.0 Ur Specific York 1.041 H Urine Protein 1+ H Urine Glucose (UA) Negative Urine Ketones Trace H Urine Blood Negative Urine Nitrite Negative Urine Bilirubin 1+ H Urine Urobilinogen Negative Ur Leukocyte Esterase Negative Urine WBC (Auto) 1-5 Urine RBC (Auto) 5-10 H U Hyaline Cast (Auto) Not Reportable U Epithel Cells (Auto) 10-20 H Urine Bacteria (Auto) Negative Calcium Oxalate Crystal Present A Urine Yeast Not Reportable Urine Osmolality 398 L Ur Random Creatinine 149.0 Urine Sodium < 5 Urine Potassium 39.6 Urine Chloride 15 11/02/20 11/03/20 11/03/20 18:00 00:15 00:50 WBC RBC Hgb Hct MCV MCH MCHC RDW Std Deviation RDW Coeff of Deana Plt Count MPV Immature Gran % (Auto) Neut % (Auto) Lymph % (Auto) Reeves % (Auto) Eos % (Auto) Baso % (Auto) Reticulocyte % (Auto) Neut # (Auto) Lymph # (Auto) Reeves # (Auto) Eos # (Auto) Baso # (Auto) Reticulocyte # Immature Gran # (Auto) Hypersegmented Neuts Toxic Vacuolation PT INR APTT Cancelled PTT Ratio Cancelled Sodium Potassium Chloride Carbon Dioxide Anion Gap BUN Creatinine Est Cr Clr Drug Dosing Est GFR ( Amer) Est GFR (Non-Af Amer) BUN/Creatinine Ratio Glucose POC Glucose 182 H 138 H Calcium Phosphorus Magnesium Total Bilirubin AST ALT Alkaline Phosphatase NT-Pro-B Natriuret Pep Total Protein Albumin Globulin Albumin/Globulin Ratio Procalcitonin Urine Color Urine Appearance Urine pH Ur Specific York Urine Protein Urine Glucose (UA) Urine Ketones Urine Blood Urine Nitrite Urine Bilirubin Urine Urobilinogen Ur Leukocyte Esterase Urine WBC (Auto) Urine RBC (Auto) U Hyaline Cast (Auto) U Epithel Cells (Auto) Urine Bacteria (Auto) Calcium Oxalate Crystal Urine Yeast Urine Osmolality Ur Random Creatinine Urine Sodium Urine Potassium Urine Chloride 11/03/20 11/03/20 11/03/20 01:17 04:25 04:25 WBC 8.86 RBC 2.78 L Hgb 8.6 L Hct 25.9 L MCV 93.2 MCH 30.9 MCHC 33.2 RDW Std Deviation 48.7 H RDW Coeff of Deana 14.2 Plt Count 107 L MPV 9.2 Immature Gran % (Auto) 0.5 Neut % (Auto) 91.5 Lymph % (Auto) 7.3 Reeves % (Auto) 0.6 Eos % (Auto) 0.1 Baso % (Auto) 0.0 Reticulocyte % (Auto) < 0.5 L Neut # (Auto) 8.11 H Lymph # (Auto) 0.65 L Reeves # (Auto) 0.05 L Eos # (Auto) 0.01 Baso # (Auto) 0.00 Reticulocyte # < 0.02 L Immature Gran # (Auto) 0.04 H Hypersegmented Neuts 1+ Toxic Vacuolation Occasional PT 12.4 H INR 1.2 H APTT 58.7 H* 55.9 H* PTT Ratio 2.2 2.1 Sodium Potassium Chloride Carbon Dioxide Anion Gap BUN Creatinine Est Cr Clr Drug Dosing Est GFR ( Amer) Est GFR (Non-Af Amer) BUN/Creatinine Ratio Glucose POC Glucose Calcium Phosphorus Magnesium Total Bilirubin AST ALT Alkaline Phosphatase NT-Pro-B Natriuret Pep Total Protein Albumin Globulin Albumin/Globulin Ratio Procalcitonin Urine Color Urine Appearance Urine pH Ur Specific York Urine Protein Urine Glucose (UA) Urine Ketones Urine Blood Urine Nitrite Urine Bilirubin Urine Urobilinogen Ur Leukocyte Esterase Urine WBC (Auto) Urine RBC (Auto) U Hyaline Cast (Auto) U Epithel Cells (Auto) Urine Bacteria (Auto) Calcium Oxalate Crystal Urine Yeast Urine Osmolality Ur Random Creatinine Urine Sodium Urine Potassium Urine Chloride 11/03/20 11/03/20 04:25 04:25 WBC RBC Hgb Hct MCV MCH MCHC RDW Std Deviation RDW Coeff of Deana Plt Count MPV Immature Gran % (Auto) Neut % (Auto) Lymph % (Auto) Reeves % (Auto) Eos % (Auto) Baso % (Auto) Reticulocyte % (Auto) Neut # (Auto) Lymph # (Auto) Reeves # (Auto) Eos # (Auto) Baso # (Auto) Reticulocyte # Immature Gran # (Auto) Hypersegmented Neuts Toxic Vacuolation PT INR APTT PTT Ratio Sodium 134 L Potassium 3.1 L D Chloride 102 Carbon Dioxide 28 Anion Gap 4.0 BUN 40 H Creatinine 1.69 H Est Cr Clr Drug Dosing 27.8 Est GFR ( Amer) 33.6 Est GFR (Non-Af Amer) 29.0 BUN/Creatinine Ratio 23.6 H Glucose 117 H POC Glucose Calcium 8.0 L Phosphorus 2.2 L Magnesium 1.6 L Total Bilirubin 0.9 D AST 30 ALT 18 Alkaline Phosphatase 217 H NT-Pro-B Natriuret Pep > 31113 H Total Protein 5.5 L Albumin 1.9 L Globulin 3.6 Albumin/Globulin Ratio 0.5 L Procalcitonin 3.48 H Urine Color Urine Appearance Urine pH Ur Specific [place] Urine Protein Urine Glucose (UA) Urine Ketones Urine Blood Urine Nitrite Urine Bilirubin Urine Urobilinogen Ur Leukocyte Esterase Urine WBC (Auto) Urine RBC (Auto) U Hyaline Cast (Auto) U Epithel Cells (Auto) Urine Bacteria (Auto) Calcium Oxalate Crystal Urine Yeast Urine Osmolality Ur Random Creatinine Urine Sodium Urine Potassium Urine Chloride Diagnostic Findings The patient had several chest x-rays, and CT scans of the chest and abdomen. Of note she did have pulmonary emboli, 1 felt to be acute. She did have a moderate size left pleural effusion and a small right pleural effusion. PG Care Time/CCT Total # of Minutes Spent Total Time Spent with Patient: Total time spent is greater than 50% in coordination of care (as documented) at patient's floor/unit and/or counseling p atient: Coding Level of Care Code 95826 Initial Inpt Care Lvl 3 Diagnoses Aortic valve disorder I35.9 Congestive heart failure I50.9 Mitral regurgitation I34.0
--- NOTE | 2020-11-03 19:28 | Hospitalist Progress Note ---
Date of Service November 03, 2020 Assessment & Plan (1) Septic shock: Plan: Presented with weakness, SOB, and shortly after admission found to be febrile, severely hypotensive that was minimally responsive to crystalloid boluses of IV fluids. She had elevated LFTs and in an obstructive pattern and was noted to have possible blockage of her known biliary stent on imaging. She was transferred to the ICU on the morning of 11/02 and started on Levophed- remains on vasopressors today but pressures are improved and she is mentating -With acute kidney injury, acute respiratory failure with hypoxia Lactate was normal, procalcitonin elevated at 3.48 Found to have ascending cholangitis secondary to biliary stent obstruction Growing gram-negative rods in blood cultures Now status post urgent ERCP on 11/02 which revealed complete blockage of biliary stent with pus and stones and sludge-removal of stent and placement of new stent in CBD -Continue antibiotics for 14 days as per GI-continues on cefepime and Flagyl -Remains in ICU on vasopressors -Follow-up results of final sensitivity and ID of blood cultures -Follow urine culture-pending Follow CBC, CMP, magnesium (2) Cholangitis: Plan: As above Continue antibiotics Start Actigall 300 mg p.o. twice daily to prevent future stones and sludge formation (3) Bacteremia: Plan: As above, growing gram-negative bacilli Awaiting final ID and sensitivity Continue cefepime and Flagyl (4) Acute kidney injury: Plan: Creatinine elevated 1.9 admission now down to 1.69 after volume resuscitation and vasopressors, improvement of hypotension Follow BMP Renally dose medications Watch urine output (5) Congestive heart failure: Plan: Echocardiogram showing biventricular failure Unclear etiology-sepsis versus chemotherapy, seems less likely to be ischemic Appreciate cardiology consultation Was given 1 dose of IV Lasix on the grader marker of 11/03 for worsening hypoxia Has bilateral pleural effusions on chest x-ray Once blood pressure stabilized, restart home Toprol-XL and consider ARB addition to replace amlodipine -Hold home HCTZ and may need oral Lasix in the future (6) Pulmonary embolism, bilateral: Plan: CT angiography of chest demonstrating segmental and subsegmental pulmonary emboli and right lower lobe and left upper lobe. 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 Appreciate oncology consultation Holding off on further chemotherapy at this time (9) Hypomagnesemia: Plan: Given magnesium sulfate replacement in the ED. Follow magnesium levels and replace as needed (10) Dyslipidemia: Plan: Holding home atorvastatin (11) Chronic obstructive pulmonary disease: Plan: Wears 2 L nasal cannula at nighttime Now on continuous supplemental O2 secondary to volume overload No acute issues Albuterol and ipratropium as needed Continue home Anoro (12) Hypertension: Plan: With septic shock, holding home amlodipine, metoprolol Continue home aspirin (13) Hypokalemia: Plan: Potassium low today Replaced with IV potassium Follow BMP (14) Anemia: Plan: Hemoglobin continues to drop daily down to 8.1 Likely secondary to chemotherapeutic effect Reticulocyte count is low Follow CBC and transfuse if hemoglobin less than 7.5 as per oncology recommendations (15) Thrombocytopenia: Plan: Platelet count trending downward today to 107, likely also secondary to antineoplastic effect Follow CBC -Would need to hold anticoagulation and aspirin if platelets less than 50 (16) Acute and chronic respiratory failure: Plan: On continuous supplemental O2 as noted above secondary to volume overload and pleural effusions in the setting of chronic 2 L nasal cannula at night for COPD Diurese cautiously (17) Constipation: Plan: No bowel movement since 10/26 Added senna (18) CKD (chronic kidney disease) stage 3, GFR 30-59 ml/min: Plan: CKD stage III With acute kidney injury as above -Avoid nephrotoxins -renally dose meds when appropriate -follow BMP (19) DVT prophylaxis: Plan: With acute PE as above, on therapeutic Lovenox Disposition continued stay in ICU Admission and Anticipated Discharge Date Admission Date: November 02, 2020 Subjective Pt feeling tired but overall a little better than yesterday. Remains on Levophed for hypotension. Is having some epigastric abdominal pain that is mild. Denies shortness of breath but remains on oxygen. She received Lasix overnight for worsening hypoxia. I discussed her care with cardiology. Review of Systems Review of Systems: All systems reviewed & are unremarkable except as noted in Subjective Physical Exam Constitutional: WD/WN, vitals as above + ill appearing Eyes: + anicteric sclerae ENMT: external ear and nose normal, oropharynx normal Neck: trachea midline, no thyromegaly Respiratory: normal respiratory effort Auscultation: lungs clear to aus cultation bilaterally and + diminished lung sounds (At the bases bilaterally) Cardiovascular: RRR, no murmur, no edema Chest (Breasts): Chest: normal inspection of chest Gastrointestinal (Abdomen): Inspection/Auscultation: normal bowel sounds; abdomen not distended Percussion/Palpation: + abdomen tender (Mild in epigastric region without guarding or rebound tenderness) and abdomen soft Musculoskeletal: Extremities: extremities normal to inspection; no cyanosis and no clubbing Skin: no rashes, warm and dry Neurologic: moves all extremities and awake; no focal motor deficits Psychiatric: A+Ox3, euthymic affect Lymphatic: no lymphedema Results & Data Results & Data ([facility]) Vital Signs (Past 12 Hours) Vital Signs Temp Pulse Pulse Pulse Resp BP BP 11/03/20 18:46 36.9 C 77 16 111/63 11/03/20 17:00 36.8 C 80 17 116/59 L 11/03/20 16:21 72 11/03/20 16:00 36.7 C 74 17 94/45 L 11/03/20 15:00 36.7 C 75 30 H 101/57 L 11/03/20 14:00 36.7 C 76 17 108/63 11/03/20 13:01 36.7 C 76 17 88/40 L 11/03/20 13:00 36.7 C 75 17 88/40 L 11/03/20 12:00 36.6 C 80 17 104/53 L 11/03/20 11:00 36.7 C 70 16 102/54 L 11/03/20 10:00 36.8 C 74 16 96/48 L 11/03/20 09:01 36.7 C 77 20 96/52 L 11/03/20 08:42 36.1 C L 76 11/03/20 08:01 36.6 C 80 19 103/50 L Pulse Ox 11/03/20 18:46 94 11/03/20 17:00 91 11/03/20 16:21 11/03/20 16:00 94 11/03/20 15:00 92 11/03/20 14:00 92 11/03/20 13:01 91 11/03/20 13:00 91 11/03/20 12:00 94 11/03/20 11:00 95 11/03/20 10:00 95 11/03/20 09:01 11/03/20 08:42 11/03/20 08:01 92 Laboratory Results 11/03/20 11/03/20 11/03/20 Range/Units 21:00 16:35 04:25 WBC (4.8-10.8) K/uL RBC (4.2-5.4) M/uL Hgb (12.0-16.0) g/dL Hct (37-47) % MCV (80-100) fL MCH (25-34) pg MCHC (32-36) g/dL RDW Std Deviation (36.4-46.3) fL RDW Coeff of Deana (11.5-14.5) % Plt Count (130-400) K/uL MPV (7.4-10.4) fL Immature Gran % (Auto) % Neut % (Auto) % Lymph % (Auto) % Addison % (Auto) % Eos % (Auto) % Baso % (Auto) % Reticulocyte % (Auto) (0.5-2.0) % Neut # (Auto) (1.4-6.5) K/uL Lymph # (Auto) (1.2-3.4) K/uL Addison # (Auto) (0.11-0.59) K/uL Eos # (Auto) (0-0.5) K/uL Baso # (Auto) (0-0.2) K/uL Reticulocyte # (0.02-0.10) 10^6/uL Immature Gran # (Auto) (0.00-0.02) K/uL Hypersegmented Neuts Toxic Vacuolation PT (9.0-12.0) Seconds INR (0.9-1.1) APTT PTT Ratio Sodium (136-145) mmol/L Potassium (3.5-5.1) mmol/L Chloride (98-107) mmol/L Carbon Dioxide (21-32) mmol/L Anion Gap (3-11) BUN (7-18) mg/dl Creatinine (0.6-1.2) mg/dl Est Cr Clr Drug Dosing ml/min Est GFR ( Amer) ml/min Est GFR (Non-Af Amer) ml/min BUN/Creatinine Ratio (10-20) Glucose (70-99) mg/dl POC Glucose 135 H 155 H (70-99) mg/dl Calcium (8.5-10.1) mg/dl Phosphorus (2.5-4.9) mg/dl Magnesium (1.8-2.4) mg/dl Total Bilirubin (0.2-1) mg/dl AST (15-37) U/L ALT (12-78) U/L Alkaline Phosphatase (45-117) U/L NT-Pro-B Natriuret Pep (0-1800) pg/ml Total Protein (6.4-8.2) gm/dl Albumin (3.4-5.0) gm/dl Globulin (2.5-4.0) gm/dl Albumin/Globulin Ratio (0.9-2) Procalcitonin 3.48 H (0-0.5) ng/ml 11/03/20 11/03/20 11/03/20 Range/Units 04:25 04:25 04:25 WBC 8.86 (4.8-10.8) K/uL RBC 2.78 L (4.2-5.4) M/uL Hgb 8.6 L (12.0-16.0) g/dL Hct 25.9 L (37-47) % MCV 93.2 (80-100) fL MCH 30.9 (25-34) pg MCHC 33.2 (32-36) g/dL RDW Std Deviation 48.7 H (36.4-46.3) fL RDW Coeff of Deana 14.2 (11.5-14.5) % Plt Count 107 L (130-400) K/uL MPV 9.2 (7.4-10.4) fL Immature Gran % (Auto) 0.5 % Neut % (Auto) 91.5 % Lymph % (Auto) 7.3 % Addison % (Auto) 0.6 % Eos % (Auto) 0.1 % Baso % (Auto) 0.0 % Reticulocyte % (Auto) < 0.5 L (0.5-2.0) % Neut # (Auto) 8.11 H (1.4-6.5) K/uL Lymph # (Auto) 0.65 L (1.2-3.4) K/uL Addison # (Auto) 0.05 L (0.11-0.59) K/uL Eos # (Auto) 0.01 (0-0.5) K/uL Baso # (Auto) 0.00 (0-0.2) K/uL Reticulocyte # < 0.02 L (0.02-0.10) 10^6/uL Immature Gran # (Auto) 0.04 H (0.00-0.02) K/uL Hypersegmented Neuts 1+ Toxic Vacuolation Occasional PT 12.4 H (9.0-12.0) Seconds INR 1.2 H (0.9-1.1) APTT 55.9 H* PTT Ratio 2.1 Sodium 134 L (136-145) mmol/L Potassium 3.1 L D (3.5-5.1) mmol/L Chloride 102 (98-107) mmol/L Carbon Dioxide 28 (21-32) mmol/L Anion Gap 4.0 (3-11) BUN 40 H (7-18) mg/dl Creatinine 1.69 H (0.6-1.2) mg/dl Est Cr Clr Drug Dosing 27.8 ml/min Est GFR ( Amer) 33.6 ml/min Est GFR (Non-Af Amer) 29.0 ml/min BUN/Creatinine Ratio 23.6 H (10-20) Glucose 117 H (70-99) mg/dl POC Glucose (70-99) mg/dl Calcium 8.0 L (8.5-10.1) mg/dl Phosphorus 2.2 L (2.5-4.9) mg/dl Magnesium 1.6 L (1.8-2.4) mg/dl Total Bilirubin 0.9 D (0.2-1) mg/dl AST 30 (15-37) U/L ALT 18 (12-78) U/L Alkaline Phosphatase 217 H (45-117) U/L NT-Pro-B Natriuret Pep > 26969 H (0-1800) pg/ml Total Protein 5.5 L (6.4-8.2) gm/dl Albumin 1.9 L (3.4-5.0) gm/dl Globulin 3.6 (2.5-4.0) gm/dl Albumin/Globulin Ratio 0.5 L (0.9-2) Procalcitonin (0-0.5) ng/ml 11/03/20 11/03/20 11/03/20 Range/Units 01:17 00:50 00:15 WBC (4.8-10.8) K/uL RBC (4.2-5.4) M/uL Hgb (12.0-16.0) g/dL Hct (37-47) % MCV (80-100) fL MCH (25-34) pg MCHC (32-36) g/dL RDW Std Deviation (36.4-46.3) fL RDW Coeff of Deana (11.5-14.5) % Plt Count (130-400) K/uL MPV (7.4-10.4) fL Immature Gran % (Auto) % Neut % (Auto) % Lymph % (Auto) % Addison % (Auto) % Eos % (Auto) % Baso % (Auto) % Reticulocyte % (Auto) (0.5-2.0) % Neut # (Auto) (1.4-6.5) K/uL Lymph # (Auto) (1.2-3.4) K/uL Addison # (Auto) (0.11-0.59) K/uL Eos # (Auto) (0-0.5) K/uL Baso # (Auto) (0-0.2) K/uL Reticulocyte # (0.02-0.10) 10^6/uL Immature Gran # (Auto) (0.00-0.02) K/uL Hypersegmented Neuts Toxic Vacuolation PT (9.0-12.0) Seconds INR (0.9-1.1) APTT 58.7 H* Cancelled PTT Ratio 2.2 Cancelled Sodium (136-145) mmol/L Potassium (3.5-5.1) mmol/L Chloride (98-107) mmol/L Carbon Dioxide (21-32) mmol/L Anion Gap (3-11) BUN (7-18) mg/dl Creatinine (0.6-1.2) mg/dl Est Cr Clr Drug Dosing ml/min Est GFR ( Amer) ml/min Est GFR (Non-Af Amer) ml/min BUN/Creatinine Ratio (10-20) Glucose (70-99) mg/dl POC Glucose 138 H (70-99) mg/dl Calcium (8.5-10.1) mg/dl Phosphorus (2.5-4.9) mg/dl Magnesium (1.8-2.4) mg/dl Total Bilirubin (0.2-1) mg/dl AST (15-37) U/L ALT (12-78) U/L Alkaline Phosphatase (45-117) U/L NT-Pro-B Natriuret Pep (0-1800) pg/ml Total Protein (6.4-8.2) gm/dl Albumin (3.4-5.0) gm/dl Globulin (2.5-4.0) gm/dl Albumin/Globulin Ratio (0.9-2) Procalcitonin (0-0.5) ng/ml Diagnostic Findings Chest X-Ray 11/03/20 07:00 XR chest 1V portable HISTORY: Shortness of breath. f/u COMPARISON: Chest 11/01/2020. FINDINGS: There are low lung volumes. No pneumothorax. Left subclavian Port-A-Cath runs at the SVC. Small right and moderate left pleural effusions have slightly increased in size. Left basilar densities persist. The heart remains borderline enlarged. IMPRESSION: Slight increase in size in the small right and moderate left pleural effusions. ACT 112: Negative or not required by law. Electronically signed by: Kishor Taylor M.D. 11/03/2020 8:12 AM PG Care Time/CCT Total # of Minutes Spent Total Time Spent with Patient: Total time spent is greater than 50% in coordination of care (as documented) at patient's floor/unit and/or counseling patient: Coding Level of Care Code 96179 Subseq Hosp Care Lvl 3 Diagnoses Pulmonary embolism, bilateral I26.99 Pancreatic adenocarcinoma C25.9 Hypomagnesemia E83.42 Dyslipidemia E78.5 Chronic obstructive pulmonary disease J44.9 COPD type: unspecified COPD Hypertension I10 Hypertension type: unspecified Acute kidney injury N17.9 Aortic valve disorder I35.9 Congestive heart failure I50.9 Cholangitis K83.09 Bacteremia R78.81 DVT prophylaxis Z29.9 Septic shock A41.9; R65.21 Hypokalemia E87.6 Anemia D64.9 Thrombocytopenia D69.6 Acute and chronic respiratory failure J96.20 Constipation K59.00 CKD (chronic kidney disease) stage 3, GFR 30-59 ml/min N18.30 (1) Chronic obstructive pulmonary disease COPD type: unspecified COPD Qualified Code(s): J44.9 - Chronic obstructive pulmonary disease, unspecified (2) Hypertension Hypertension type: unspecified Qualified Code(s): I10 - Essential (primary) hypertension
[2020-11-03] MEDS: GABAPENTIN 300 MG CAP PO SCH (19:53)
[2020-11-03] MEDS: UMECLIDINIUM/VILANTEROL 62.5/25MCG 7 PUFFS/INHALER INH SCH (19:54)
[2020-11-03] MEDS: HYDROcodone/ACETAMINOPHEN 10/325 TAB PO PRN (19:55)
[2020-11-04] MEDS: metroNIDAZOLE 500 MG/100 ML BAG IV SCH ×3 (00:36→17:21)
[2020-11-04 04:50] LABS: Hematocrit (blood only) 25.4 % (37-47); Hemoglobin 8.6 g/dL (12.0-16.0); Mean Corpuscular Hemoglobin 30.9 pg (25-34); Mean Corpuscular Hgb Conc 33.9 g/dL (32-36); Mean Corpuscular Volume 91.4 fL (80-100); RDW Coefficient of Variation 14.2 % (11.5-14.5); RDW Standard Deviation 47.1 fL (36.4-46.3); Red Blood Count 2.78 M/uL (4.2-5.4); White Blood Count 8.13 K/uL (4.8-10.8)
[2020-11-04 05:00] LABS: INR 1.2 (0.9-1.1); Partial Thromboplastin Ratio 1.6; Partial Thromboplastin Time 41.5 Seconds (21.0-31.0); Prothrombin Time 12.1 Seconds (9.0-12.0)
[2020-11-04 05:08] LABS: Albumin Level 1.7 gm/dl (3.4-5.0); BUN Creatinine Ratio 22.2 (10-20); Calcium 7.9 mg/dl (8.5-10.1); Est GFR (African American) 33.1 ml/min; Est GFR (Non-African American) 28.6 ml/min; Magnesium 1.8 mg/dl (1.8-2.4)
[2020-11-04 05:10] LABS: Albumin Globulin Ratio 0.5 (0.9-2); Bilirubin,Total 0.6 mg/dl (0.2-1); Globulin 3.6 gm/dl (2.5-4.0); Phosphorus 2.2 mg/dl (2.5-4.9); Total Protein 5.3 gm/dl (6.4-8.2)
[2020-11-04 05:12] LABS: Mean Platelet Volume 9.5 fL (7.4-10.4); Platelet Count 85 K/uL (130-400)
[2020-11-04 05:13] LABS: Eosinophils # (auto) 0.03 K/uL (0-0.5); Eosinophils % (auto) 0.4 %; Giant Platelets 1+; Immature Granulocytes # (auto) 0.08 K/uL (0.00-0.02); Lymphocytes # (auto) 1.16 K/uL (1.2-3.4); Lymphocytes % (auto) 14.3 %; Monocytes # (auto) 0.18 K/uL (0.11-0.59); Monocytes % (auto) 2.2 %; Neutrophils # (auto) 6.68 K/uL (1.4-6.5); Neutrophils % (auto) 82.1 %; Platelet Estimate Decreased (Normal)
[2020-11-04] MEDS ORDERED: POTASSIUM PHOS 3 MMOL/1 ML INFUSION IV STA (05:35)
--- NOTE | 2020-11-04 05:47 | Critical Care Progress Note ---
Date of Service November 04, 2020 Assessment & Plan (1) Pulmonary embolism, bilateral: Plan: Reason Critically Ill: Dora is a very pleasant 75-year-old female with a notable past medical history of pancreatic adenocarcinoma status post ERCP in August with placement of common bile duct stent (in the context of sepsis), COPD, hyperparathyroidism, dyslipidemia, hypertension who presented to [facility] for evaluation of chest congestion, shortness of breath, generalized weakness, decreased oral intake x several days, subsequently found to be hypotensive, tachycardic, and febrile in the context of a fluid-filled CBD stent on CT-A/P and bilateral pulmonary emboli. She requires ICU-level care for management of her shock. Neuro - CAM ICU: NEGATIVE Sedation: None Analgesia: None Metabolic Encephalopathy * Mild - patient mentating and completely alert and oriented, but somnolent * Secondary to ongoing sepsis * No major lyte abnormalities Cardiac / ID / Pulm - Shock * Patient presenting with hypotension, tachycardia, fever, good peripheral perfusion in setting of intraductal dilatation (around previous stent) and bilateral pulmonary emboli * Still requiring pressors at present * In setting of presenting symptoms, suspect this is most likely secondary to septic shock --> Source likely hepatic / intraductal, CT-A/P revealing of dilatation around previous stent --> ERCP 11/02 demonstrated occluded stent of biliary tree - new stent placed into CBD by GI --> BCX demonstrating reis-sensitive Klebsiella x 1, GNB x 1 --> Discontinue cefepime, daptomycin --> Initiate CFTX --> Maintain MAP > 65 --> Maintain UOP > 0.5cc/kg/hr --> Await repeat BCX (pending) --> Will give 25% Albumin 25 x 1 * Pulmonary emboli also considered within this process -- BNP > 25k --> Echo demonstrating moderately reduced RV function and elevated pressures --> At present, lower suspicion this is cause of underlying shock Pulmonary Emboli * Segmental and subsegmental b/l pulmonary emboli noted on admission CTA-Chest * LE Dopplers: No evidence of DVT * Continue Lovenox Cardiomyopathy / HFrEF * TTE demonstrating reduced biventricular function -- LVEF 25-30% -- alongside BNP > 35k * Etiology unclear at present - per cardiology, unlikely to be ischemic * Continue to hold RAAS inhibition and metoprolol in setting of ongoing hemodynamic instability * Diuresis p.r.n. 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 --> No further intervention, imaging needed at this time * __ discontinue daptomycin GI - Cholangitis, Biliary Obstruction * Patient with h/o pancreatic adenocarcinoma, s/p ERCP with metal CBD stent in August 2020 * In setting of HoTN, tachycardia, +BCX (GNR), transaminitis, hyperbilirubinemia, and suspected septic shock, occluded stent likely source * s/p CT-A/P, ERCP with placement of new stent * Clear liquid diet per GI * Ursodiol bid RENAL/LYTES - Acute Kidney Injury * Baseline Cr 1.0 - 1.2 on chart review (to 2018) * Minimal improvement today -- Cr 1.7 (1.69 yesterday) * Suspect this is prerenal in nature in setting of ongoing shock, possible infection * Promote PO intake * Avoid nephrotoxic medications - * Watson - monitor UOP * No acute needs otherwise ENDO - * ICU Hyperglycemia protocol HEME - Normocytic Anemia * Borderline macrocytic anemia appreciated on admission - stable and relatively unchanged (8.6 today) * This is nearly a 5-point drop from 10/26 (1 week ago), which was 13.2 * In setting of recent chemotherapy and active infection --> PT/INR 12.1 / 1.2 --> Reticulocytes - extremely low. Thrombocytopenia * Ongoing with platelets at 85 today (from 107) * Suspect secondary to sepsis, H&H stable * Will send off for PF4 anti-heparin Ig's - r/o HIT LINES/IV ACCESS - PIVs intact, L chest port DVT PROPHYLAXIS - Therapeutic lovenox w/ PEs (2) Venous insufficiency: (3) Impaired fasting glucose: (4) Hepatic steatosis: (5) Dyslipidemia: (6) Chronic obstructive pulmonary disease: (7) Hyperparathyroidism, primary: (8) Chronic osteoarthritis: (9) Encounter for pre-operative examination: (10) Adenocarcinoma: (11) Mass of pancreas: (12) Asymptomatic PVCs: (13) Secondary polycythemia: (14) DNR (do not resuscitate): (15) Hypomagnesemia: (16) Pancreatic adenocarcinoma: (17) Transaminitis: (18) Acute kidney injury: Admission and Anticipated Discharge Date Admission Date: November 02, 2020 Supervising Physician Co-Signing Physician Notes Dr. Benito was resident physician during care of patient. I separately evaluated patient for ng portions of the history and the exam. I was present during the critical portion of medical decision making, and I discussed the case with the resident. I generally agree with the findings and plan. 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 Bolus with 25 g 25% albumin for volume expansion. Send heparin antibodies we will continue heparin as I believe this is related to sepsis and underlying disease process. Subjective No acute events overnight. Patient seen at the bedside this morning, reporting feeling comfortable. She endorses a minimal amount of pain in her back, but not elsewhere. She denies any chills. She says that energy is okay, but is unable to answer clearly right now given that she just woke up. No chills overnight. Denies any chest pain, palpitations, shortness of breath. Denies any nausea. Denies any leg pain or swelling. Review of Systems Review of Systems: Constitutional: Denies chills Eyes: Denies double vision ENT: Denies ear pain, sore throat, sinus pain Cardiovascular: Denies Chest pain, chest pressure, palpitations, extremity swelling Respiratory: Denies shortness of breath, cough, sputum production, difficulty breathing Gastrointestinal: Denies nausea, vomiting, constipation, diarrhea Genitourinary: Denies urinary symptoms Musculoskeletal: Denies weakness, muscle aches/pain Integumentary: Denies rash, lesions, bruising Neurological: Denies headache, numbness, tingling, focal weakness Physical Exam Physical Exam: General: Somnolent appearing 75-year-old female who is lying back in her hospital bed, asleep, upon my arrival. She does awaken easily. More tired-appearing today. She is fully alert and oriented throughout her discussion. HEENT: NCAT. Eyes - Sclera are white, anicteric, and without injection. PERRL. Cardiac: Normal rate and regular rhythm with intermittent ectopy; S1 and S2 pres ent with no murmurs, rubs, or gallops. Pulmonary: Mildly increased respiratory effort with symmetric expansion of the chest. No use of accessory muscles. This morning, lungs do appear to sound clear to auscultation bilaterally without significant amounts of crackles or wheezes Abdominal: Bowel sounds normoactive. Mild tenderness to palpation of the right upper quadrant, but not elsewhere. No rebound or guarding. Extremities: Upper and lower extremities are warm and well perfused. Upper extremity pulses 2+ bilaterally. 1+ pitting edema in the LEs. Capillary refill was approximately 2 seconds. Results & Data Results & Data ([facility]) Vital Signs (Past 12 Hours) Vital Signs Temp Pulse Pulse Resp BP BP Pulse Ox 11/04/20 05:31 36.8 C 80 13 94/53 L 93 11/04/20 05:01 36.8 C 73 14 101/41 L 93 11/04/20 04:31 36.8 C 74 13 94/45 L 94 11/04/20 04:01 36.7 C 75 15 100/46 L 93 11/04/20 03:31 36.7 C 74 15 93/41 L 93 11/04/20 03:01 36.7 C 72 21 92/54 L 94 11/04/20 02:31 36.6 C 71 13 94/57 L 93 11/04/20 02:01 36.5 C 80 19 119/42 L 93 11/04/20 01:30 36.6 C 78 14 107/52 L 92 11/04/20 01:01 36.6 C 71 13 85/56 L 94 11/04/20 00:31 36.6 C 75 13 109/65 94 11/04/20 00:00 36.5 C 74 20 105/63 92 11/03/20 23:30 36.5 C 72 15 110/60 92 11/03/20 23:00 36.4 C L 77 14 107/53 L 95 11/03/20 22:31 36.4 C L 71 13 107/51 L 94 11/03/20 22:00 36.5 C 70 12 105/48 L 95 11/03/20 21:30 36.5 C 71 15 104/50 L 95 11/03/20 21:00 36.7 C 71 20 91/60 L 95 11/03/20 20:00 36.9 C 81 22 103/65 95 11/03/20 19:31 36.8 C 83 22 92/49 L 93 11/03/20 19:01 36.9 C 81 15 110/48 L 93 11/03/20 18:46 36.9 C 77 16 111/63 94 Resident Activity Tracking Resident Involvement: Resident Care Provided Care Provided: Adult Hospital Medicine (1) Chronic obstructive pulmonary disease COPD type: unspecified COPD Qualified Code(s): J44.9 - Chronic obstructive pulmonary disease, unspecified
[2020-11-04] MEDS: POTASSIUM CHLORIDE / WTR 10 MEQ/100 ML PLCT IV SCH ×4 (05:55→09:01)
[2020-11-04] MEDS ORDERED: POTASSIUM PHOSPHATE 15 MMOL in SODIUM CHLORIDE 0.9% 250 ML IV ONE (06:00)
[2020-11-04] MEDS: NOREPINEPHRINE/D5W 8 MG/508 ML BAG IV SCH ×2 (07:19→19:12)
[2020-11-04] MEDS: ASPIRIN 81 MG ECTAB PO SCH (07:59)
[2020-11-04] MEDS: PANTOprazole 40 MG TAB PO SCH (07:59)
[2020-11-04] MEDS: CHOLECALCIFEROL 1,000 UNITS 25 MCG TAB PO SCH (07:59)
[2020-11-04] MEDS: ASCORBIC ACID 500 MG TAB PO SCH (07:59)
[2020-11-04] MEDS: ursodioL 300 MG CAP PO SCH ×2 (08:01→20:17)
[2020-11-04] MEDS: ENOXAPARIN 80 MG/0.8 ML SYR SQ SCH (08:01)
[2020-11-04] MEDS: SENNA 8.6 MG TAB PO SCH (08:02)
[2020-11-04] MEDS ORDERED: SENNA 8.6 MG TAB PO PRN (10:13)
[2020-11-04] MEDS: ALBUMIN 25% 12.5 GM/50 ML VIAL IV SCH ×2 (10:39→11:33)
[2020-11-04] MEDS: HYDROcodone/ACETAMINOPHEN 10/325 TAB PO PRN ×2 (13:31→20:47)
[2020-11-04] MEDS: cefTRIAXone SODIUM 2,000 MG in DEXTROSE 5% 50 ML IV SCH (13:35)
--- NOTE | 2020-11-04 16:58 | Cardiology Progress Note ---
Date of Service November 04, 2020 Assessment & Plan (1) Aortic valve disorder: Plan: She does appear to have a valve lesion of unclear etiology. However, her current infection is related to her biliary obstruction. I do not believe there is any indication for transesophageal echocardiogram as it would not likely change lead currently. (2) Congestive heart failure: Plan: Her volume status appears good currently. She does not appear to have significant pulmonary vascular congestion. Oxygenation appears good. I think this is the primary cardiac issue in the immediate time frame. She will require volume resuscitation for maintenance of hemodynamics, but we must be cautious given her LV dysfunction. At some point we will initiate medical therapy provided her clinical condition improves. (3) Mitral regurgitation: Admission and Anticipated Discharge Date Admission Date: November 02, 2020 Subjective This afternoon the patient did not have any specific complaints. She was somewhat tired. She did not report any abdominal pain. She apparently tolerated a full liquid diet. She denies breathing difficulty. No sense of palpitation. No chest pain. Physical Exam Physical Exam: She appeared quite tired but did answer questions appropriately Lung examination revealed occasional crackle at the right base otherwise good aeration. No expiratory wheezing Cardiac examination revealed a regular rhythm without murmur Results & Data ([facility]) Vital Signs (Past 12 Hours) Vital Signs Temp Pulse Resp BP Pulse Ox 11/04/20 16:00 78 11/04/20 14:30 37.0 C 82 18 93/47 L 92 11/04/20 14:00 36.8 C 83 17 93/60 L 92 11/04/20 13:30 36.8 C 82 20 108/53 L 94 11/04/20 13:00 36.8 C 82 17 100/49 L 93 11/04/20 12:30 36.7 C 81 16 79/48 L 92 11/04/20 12:00 36.6 C 85 27 H 110/60 92 11/04/20 11:31 36.6 C 83 30 H 82/50 L 93 11/04/20 11:00 36.5 C 78 13 96/48 L 93 11/04/20 10:33 36.5 C 84 22 89 L 11/04/20 09:31 36.4 C L 76 12 93/48 L 97 11/04/20 09:00 36.4 C L 77 12 105/49 L 94 11/04/20 08:00 36.4 C L 78 13 102/45 L 95 11/04/20 07:01 36.7 C 77 19 118/60 97 11/04/20 06:00 36.8 C 73 15 127/54 L 95 11/04/20 05:31 36.8 C 80 13 94/53 L 93 11/04/20 05:01 36.8 C 73 14 101/41 L 93 Laboratory Results Abnormal Lab Results 11/03/20 11/04/20 11/04/20 21:00 04:31 04:31 WBC 8.13 RBC 2.78 L Hgb 8.6 L Hct 25.4 L MCV 91.4 MCH 30.9 MCHC 33.9 RDW Std Deviation 47.1 H RDW Coeff of Deana 14.2 Plt Count 85 L MPV 9.5 Immature Gran % (Auto) 1.0 Neut % (Auto) 82.1 Lymph % (Auto) 14.3 [place] % (Auto) 2.2 Eos % (Auto) 0.4 Baso % (Auto) 0.0 Neut # (Auto) 6.68 H Lymph # (Auto) 1.16 L [place] # (Auto) 0.18 Eos # (Auto) 0.03 Baso # (Auto) 0.00 Immature Gran # (Auto) 0.08 H Platelet Estimate Decreased L Giant Platelets 1+ PT 12.1 H INR 1.2 H APTT 41.5 H PTT Ratio 1.6 Sodium Potassium Chloride Carbon Dioxide Anion Gap BUN Creatinine Est Cr Clr Drug Dosing Est GFR ( Amer) Est GFR (Non-Af Amer) BUN/Creatinine Ratio Glucose POC Glucose 135 H Calcium Phosphorus Magnesium Total Bilirubin AST ALT Alkaline Phosphatase Total Protein Albumin Globulin Albumin/Globulin Ratio Procalcitonin 11/04/20 11/04/20 04:31 04:31 WBC RBC Hgb Hct MCV MCH MCHC RDW Std Deviation RDW Coeff of Deana Plt Count MPV Immature Gran % (Auto) Neut % (Auto) Lymph % (Auto) [place] % (Auto) Eos % (Auto) Baso % (Auto) Neut # (Auto) Lymph # (Auto) [place] # (Auto) Eos # (Auto) Baso # (Auto) Immature Gran # (Auto) Platelet Estimate Giant Platelets PT INR APTT PTT Ratio Sodium 134 L Potassium 3.0 L Chloride 102 Carbon Dioxide 26 Anion Gap 6.0 BUN 38 H Creatinine 1.71 H Est Cr Clr Drug Dosing 28.0 Est GFR ( Amer) 33.1 Est GFR (Non-Af Amer) 28.6 BUN/Creatinine Ratio 22.2 H Glucose 111 H POC Glucose Calcium 7.9 L Phosphorus 2.2 L Magnesium 1.8 Total Bilirubin 0.6 AST 21 ALT 15 Alkaline Phosphatase 179 H Total Protein 5.3 L Albumin 1.7 L Globulin 3.6 Albumin/Globulin Ratio 0.5 L Procalcitonin 2.10 H PG Care Time/CCT Total # of Minutes Spent Total Time Spent with Patient: Total time spent is greater than 50% in coordination of care (as documented) at patient's floor/unit and/or counseling patient: Coding Level of Care Code 08973 Subseq Hosp Care Lvl 2 Diagnoses Aortic valve disorder I35.9 Congestive heart failure I50.9 Mitral regurgitation I34.0
[2020-11-04] MEDS ORDERED: diphenhydrAMINE 50 MG/ML VIAL IV STA (17:01)
[2020-11-04] MEDS ORDERED: FAMOTIDINE 20 MG in SYRINGE 3 ML IV ONE (17:15)
--- NOTE | 2020-11-04 18:43 | Hospitalist Progress Note ---
Date of Service November 04, 2020 Assessment & Plan (1) Septic shock: Plan: Presented with weakness, SOB, and shortly after admission found to be febrile, severely hypotensive that was minimally responsive to crystalloid boluses of IV fluids. She had elevated LFTs and in an obstructive pattern and was noted to have possible blockage of her known biliary stent on imaging. She was transferred to the ICU on the morning of 11/02 and started on Levophed- remains on vasopressors today but pressures are improved and she is mentating -With acute kidney injury, acute respiratory failure with hypoxia Lactate was normal, procalcitonin elevated at 3.48 Found to have ascending cholangitis secondary to biliary stent obstruction Growing Klebsiella in blood cultures Now status post urgent ERCP on 11/02 which revealed complete blockage of biliary stent with pus and stones and sludge-removal of stent and placement of new stent in CBD -Continue antibiotics for 14 days as per GI-change cefepime to ceftriaxone and continue Flagyl -Remains in ICU on vasopressors -Follow urine culture-pending Follow CBC, CMP, magnesium (2) Cholangitis: Plan: As above Continue antibiotics Started Actigall 300 mg p.o. twice daily to prevent future stones and sludge formation (3) Bacteremia: Plan: As above, growing pansensitive Klebsiella Continue ceftriaxone and Flagyl (4) Acute kidney injury: Plan: Creatinine elevated 1.9 upon admission now down to 1.7 after volume resuscitation and vasopressors Follow BMP Renally dose medications Watch urine output, Watson catheter in place (5) Congestive heart failure: Plan: Echocardiogram showing biventricular failure Unclear etiology-sepsis versus chemotherapy, seems less likely to be ischemic Appreciate cardiology consultation Was given 1 dose of IV Lasix on the telecommunication engineer of 11/03 for worsening hypoxia Has bilateral pleural effusions on chest x-ray Once blood pressure stabilized, restart home Toprol-XL and consider ARB addition to replace amlodipine -Hold home HCTZ and may need oral Lasix in the future (6) Pulmonary embolism, bilateral: Plan: CT angiography of chest demonstrating segmental and subsegmental pulmonary emboli and right lower lobe and left upper lobe. 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 Appreciate oncology consultation Holding off on further chemotherapy at this time (9) Hypomagnesemia: Plan: Replaced and resolved (10) Dyslipidemia: Plan: Holding home atorvastatin (11) Chronic obstructive pulmonary disease: Plan: Wears 2 L nasal cannula at nighttime Now on continuous supplemental O2 secondary to volume overload but is now weaned down to 2 L Albuterol and ipratropium as needed Continue home Anoro (12) Hypertension: Plan: With septic shock, holding home amlodipine, metoprolol Continue home aspirin (13) Hypokalemia: Plan: Potassium low again today Replaced with IV potassium and potassium phosphorus Follow BMP (14) Anemia: Plan: Hemoglobin up slightly to 8.6 today Likely secondary to chemotherapeutic effect Reticulocyte count is low Follow CBC and transfuse if hemoglobin less than 7.5 as per oncology recommendations (15) Thrombocytopenia: Plan: Platelet count trending downward again to 85, likely secondary to antineoplastic effect as well as could be from sepsis Follow CBC -Would need to hold anticoagulation and aspirin if platelets less than 50 -ICU team has ordered HIT panel (16) Acute and chronic respiratory failure: Plan: On continuous supplemental O2 as noted above secondary to volume overload and pleural effusions in the setting of chronic 2 L nasal cannula at night for COPD Diurese cautiously as needed (17) Constipation: Plan: Now resolved with addition of senna (18) CKD (chronic kidney disease) stage 3, GFR 30-59 ml/min: Plan: CKD stage III With acute kidney injury as above -Avoid nephrotoxins -renally dose meds when appropriate -follow BMP (19) DVT prophylaxis: Plan: With acute PE as above, on therapeutic Lovenox Disposition continued stay in ICU Admission and Anticipated Discharge Date Admission Date: November 02, 2020 Subjective Patient remains on vasopressors but has been weaned down to 2 L nasal cannula. She had multiple loose bowel movements all through the morning after receiving laxatives last night. She still feels a little bit of soreness in the upper abdomen. Denies chest pain or shortness of breath. Still very fatigued. She is tolerating full liquids diet but does not have a good appetite. Review of Systems Review of Systems: All systems reviewed & are unremarkable except as noted in HPI & below Physical Exam Constitutional: WD/WN, vitals as above + ill appearing Eyes: + anicteric sclerae Neck: trachea midline, no thyromegaly Respiratory: normal respiratory effort Auscultation: lungs clear to auscultation bilaterally and + diminished lung sounds (At the bases bilaterally) Cardiovascular: RRR, no murmur, no edema Chest (Breasts): Chest: normal inspection of chest Gastrointestinal (Abdomen): Inspection/Auscultation: normal bowel sounds; abdomen not distended Percussion/Palpation: + abdomen tender (Mild in epigastric region without guarding or rebound tenderness) and abdomen soft Musculoskeletal: Extremities: extremities normal to inspection; no cyanosis and no clubbing Skin: no rashes, warm and dry Neurologic: moves all extremities and awake; no focal motor deficits Psychiatric: A+Ox3, euthymic affect Lymphatic: no lymphedema Results & Data Results & Data ([facility]) Vital Signs (Past 12 Hours) Vital Signs Temp Pulse Resp BP Pulse Ox 11/04/20 17:00 37.3 C 89 21 108/58 L 90 11/04/20 16:31 37.3 C 87 20 98/62 L 88 L 11/04/20 16:00 37.3 C 79 16 106/53 L 89 L 11/04/20 15:31 37.2 C 84 20 107/61 92 11/04/20 15:00 37.1 C 81 16 93/59 L 93 11/04/20 14:30 37.0 C 82 18 93/47 L 92 11/04/20 14:00 36.8 C 83 17 93/60 L 92 11/04/20 13:30 36.8 C 82 20 108/53 L 94 11/04/20 13:00 36.8 C 82 17 100/49 L 93 11/04/20 12:30 36.7 C 81 16 79/48 L 92 11/04/20 12:00 36.6 C 85 27 H 110/60 92 11/04/20 11:31 36.6 C 83 30 H 82/50 L 93 11/04/20 11:00 36.5 C 78 13 96/48 L 93 11/04/20 10:33 36.5 C 84 22 89 L 07/15/21 09:31 36.4 C L 76 12 93/48 L 97 11/04/20 09:00 36.4 C L 77 12 105/49 L 94 11/04/20 08:00 36.4 C L 78 13 102/45 L 95 11/04/20 07:01 36.7 C 77 19 118/60 97 Laboratory Results 11/04/20 11/04/20 11/04/20 Range/Units 10:22 04:31 04:31 WBC (4.8-10.8) K/uL RBC (4.2-5.4) M/uL Hgb (12.0-16.0) g/dL Hct (37-47) % MCV (80-100) fL MCH (25-34) pg MCHC (32-36) g/dL RDW Std Deviation (36.4-46.3) fL RDW Coeff of Deana (11.5-14.5) % Plt Count (130-400) K/uL MPV (7.4-10.4) fL Immature Gran % (Auto) % Neut % (Auto) % Lymph % (Auto) % [place] % (Auto) % Eos % (Auto) % Baso % (Auto) % Neut # (Auto) (1.4-6.5) K/uL Lymph # (Auto) (1.2-3.4) K/uL [place] # (Auto) (0.11-0.59) K/uL Eos # (Auto) (0-0.5) K/uL Baso # (Auto) (0-0.2) K/uL Immature Gran # (Auto) (0.00-0.02) K/uL Platelet Estimate (Normal) Giant Platelets PT (9.0-12.0) Seconds INR (0.9-1.1) APTT (21.0-31.0) Seconds PTT Ratio Sodium 134 L (136-145) mmol/L Potassium 3.0 L (3.5-5.1) mmol/L Chloride 102 (98-107) mmol/L Carbon Dioxide 26 (21-32) mmol/L Anion Gap 6.0 (3-11) BUN 38 H (7-18) mg/dl Creatinine 1.71 H (0.6-1.2) mg/dl Est Cr Clr Drug Dosing 28.0 ml/min Est GFR ( Amer) 33.1 ml/min Est GFR (Non-Af Amer) 28.6 ml/min BUN/Creatinine Ratio 22.2 H (10-20) Glucose 111 H (70-99) mg/dl Calcium 7.9 L (8.5-10.1) mg/dl Phosphorus 2.2 L (2.5-4.9) mg/dl Magnesium 1.8 (1.8-2.4) mg/dl Total Bilirubin 0.6 (0.2-1) mg/dl AST 21 (15-37) U/L ALT 15 (12-78) U/L Alkaline Phosphatase 179 H (45-117) U/L Total Protein 5.3 L (6.4-8.2) gm/dl Albumin 1.7 L (3.4-5.0) gm/dl Globulin 3.6 (2.5-4.0) gm/dl Albumin/Globulin Ratio 0.5 L (0.9-2) Serotonin Release Assay Pending Procalcitonin 2.10 H (0-0.5) ng/ml Heparin Depend Plt Ab Pending 11/04/20 11/04/20 Range/Units 04:31 04:31 WBC 8.13 (4.8-10.8) K/uL RBC 2.78 L (4.2-5.4) M/uL Hgb 8.6 L (12.0-16.0) g/dL Hct 25.4 L (37-47) % MCV 91.4 (80-100) fL MCH 30.9 (25-34) pg MCHC 33.9 (32-36) g/dL RDW Std Deviation 47.1 H (36.4-46.3) fL RDW Coeff of Deana 14.2 (11.5-14.5) % Plt Count 85 L (130-400) K/uL MPV 9.5 (7.4-10.4) fL Immature Gran % (Auto) 1.0 % Neut % (Auto) 82.1 % Lymph % (Auto) 14.3 % [place] % (Auto) 2.2 % Eos % (Auto) 0.4 % Baso % (Auto) 0.0 % Neut # (Auto) 6.68 H (1.4-6.5) K/uL Lymph # (Auto) 1.16 L (1.2-3.4) K/uL [place] # (Auto) 0.18 (0.11-0.59) K/uL Eos # (Auto) 0.03 (0-0.5) K/uL Baso # (Auto) 0.00 (0-0.2) K/uL Immature Gran # (Auto) 0.08 H (0.00-0.02) K/uL Platelet Estimate Decreased L (Normal) Giant Platelets 1+ PT 12.1 H (9.0-12.0) Seconds INR 1.2 H (0.9-1.1) APTT 41.5 H (21.0-31.0) Seconds PTT Ratio 1.6 Sodium (136-145) mmol/L Potassium (3.5-5.1) mmol/L Chloride (98-107) mmol/L Carbon Dioxide (21-32) mmol/L Anion Gap (3-11) BUN (7-18) mg/dl Creatinine (0.6-1.2) mg/dl Est Cr Clr Drug Dosing ml/min Est GFR ( Amer) ml/min Est GFR (Non-Af Amer) ml/min BUN/Creatinine Ratio (10-20) Glucose (70-99) mg/dl Calcium (8.5-10.1) mg/dl Phosphorus (2.5-4.9) mg/dl Magnesium (1.8-2.4) mg/dl Total Bilirubin (0.2-1) mg/dl AST (15-37) U/L ALT (12-78) U/L Alkaline Phosphatase (45-117) U/L Total Protein (6.4-8.2) gm/dl Albumin (3.4-5.0) gm/dl Globulin (2.5-4.0) gm/dl Albumin/Globulin Ratio (0.9-2) Serotonin Release Assay Procalcitonin (0-0.5) ng/ml Heparin Depend Plt Ab PG Care Time/CCT Total # of Minutes Spent Total Time Spent with Patient: Total time spent is greater than 50% in coordination of care (as documented) at patient's floor/unit and/or counseling patient: Coding Level of Care Code 04409 Subseq Hosp Care Lvl 2 Diagnoses Septic shock A41.9; R65.21 Cholangitis K83.09 Bacteremia R78.81 Acute kidney injury N17.9 Congestive heart failure I50.9 Pulmonary embolism, bilateral I26.99 Aortic valve disorder I35.9 Pancreatic adenocarcinoma C25.9 Hypomagnesemia E83.42 Dyslipidemia E78.5 Chronic obstructive pulmonary disease J44.9 COPD type: unspecified COPD Hypertension I10 Hypertension type: unspecified Hypokalemia E87.6 Anemia D64.9 Thrombocytopenia D69.6 Acute and chronic respiratory failure J96.20 Constipation K59.00 CKD (chronic kidney disease) stage 3, GFR 30-59 ml/min N18.30 DVT prophylaxis Z29.9 (1) Chronic obstructive pulmonary disease COPD type: unspecified COPD Qualified Code(s): J44.9 - Chronic obstructive pulmonary disease, unspecified (2) Hypertension Hypertension type: unspecified Qualified Code(s): I10 - Essential (primary) hypertension
[2020-11-04] MEDS: GABAPENTIN 300 MG CAP PO SCH (20:17)
[2020-11-04] MEDS: UMECLIDINIUM/VILANTEROL 62.5/25MCG 7 PUFFS/INHALER INH SCH (20:17)
[2020-11-05] MEDS: metroNIDAZOLE 500 MG/100 ML BAG IV SCH ×3 (01:01→18:19)
[2020-11-05 05:10] LABS: Eosinophils # (auto) 0.03 K/uL (0-0.5); Eosinophils % (auto) 0.3 %; Hemoglobin 8.3 g/dL (12.0-16.0); Immature Granulocytes % (auto) 1.1 %; Lymphocytes % (auto) 13.1 %; Mean Corpuscular Hgb Conc 33.2 g/dL (32-36); Mean Corpuscular Volume 93.3 fL (80-100); Mean Platelet Volume 9.2 fL (7.4-10.4); Monocytes # (auto) 0.29 K/uL (0.11-0.59); Monocytes % (auto) 3.2 %; Neutrophils # (auto) 7.51 K/uL (1.4-6.5); Neutrophils % (auto) 82.3 %; Platelet Count 113 K/uL (130-400); RDW Coefficient of Variation 14.2 % (11.5-14.5); RDW Standard Deviation 48.5 fL (36.4-46.3); Red Blood Count 2.68 M/uL (4.2-5.4); White Blood Count 9.13 K/uL (4.8-10.8)
[2020-11-05 05:19] LABS: Partial Thromboplastin Ratio 1.5
[2020-11-05 06:06] LABS: Albumin Globulin Ratio 0.6 (0.9-2); Albumin Level 1.9 gm/dl (3.4-5.0); BUN Creatinine Ratio 19.9 (10-20); Bilirubin,Total 0.5 mg/dl (0.2-1); Creatinine Clr Calc Pharmacy 31.8 ml/min; Est GFR (Non-African American) 31.9 ml/min; Globulin 3.2 gm/dl (2.5-4.0); Magnesium 1.6 mg/dl (1.8-2.4); Phosphorus 2.4 mg/dl (2.5-4.9); Potassium 3.6 mmol/L (3.5-5.1); Total Protein 5.1 gm/dl (6.4-8.2)
[2020-11-05] MEDS ORDERED: POTASSIUM PHOS 3 MMOL/1 ML INFUSION IV STA (06:07)
--- NOTE | 2020-11-05 06:16 | Critical Care Progress Note ---
Date of Service November 05, 2020 Assessment & Plan (1) Pulmonary embolism, bilateral: Plan: Reason Critically Ill: Dora is a very pleasant 75-year-old female with a notable past medical history of pancreatic adenocarcinoma status post ERCP in August with placement of common bile duct stent (in the context of sepsis), COPD, hyperparathyroidism, dyslipidemia, hypertension who presented to [facility] for evaluation of chest congestion, shortness of breath, generalized weakness, decreased oral intake x several days, subsequently found to be hypotensive, tachycardic, and febrile in the context of a fluid-filled CBD stent on CT-A/P and bilateral pulmonary emboli. She requires ICU-level care for management of her septic shock. Neuro - [facility] ICU: NEGATIVE Sedation: None Analgesia: None Metabolic Encephalopathy * Resolved. Somnolence continues. * Secondary to ongoing sepsis * No major lyte abnormalities Cardiac / ID / Pulm - Septic Shock * Patient presenting with hypotension, tachycardia, fever, good peripheral perfusion in setting of intraductal dilatation (around previous stent) and bilateral pulmonary emboli * Still requiring pressors at present -- will attempt to ween throughout today * In setting of presenting symptoms, suspect this is most likely secondary to septic shock --> Source likely hepatic / intraductal, CT-A/P revealing of dilatation around previous stent --> ERCP 11/02 demonstrated occluded stent of biliary tree - new stent placed into CBD by GI --> BCX demonstrating reis-sensitive Klebsiella x 1 --> Continue CFTX (will likely require through at least 11/15, 14 day course) --> Repeat BCX demonstrating [id number] --> Will give additionally 25% Albumin 25 x 1 --> Since random cortisol was on lower side, initiate 4 days of Solu-Cortef 50mg daily * Pulmonary emboli also considered within this process -- BNP > 25k --> Echo demonstrating moderately reduced RV function and elevated pressures --> At present, lower suspicion this is cause of underlying shock * Maintain MAP > 65 * Maintain UOP > 0.5cc/kg/hr Pulmonary Emboli * Segmental and subsegmental b/l pulmonary emboli noted on admission CTA-Chest * LE Dopplers: No evidence of DVT * Continue Lovenox -- increase to b.i.d. dosing today as renal function is improving Cardiomyopathy / HFrEF * TTE demonstrating reduced biventricular function -- LVEF 25-30% -- alongside BNP > 35k * Etiology unclear at present - per cardiology, unlikely to be ischemic * Still trace signs of volume excess, but asymptomatic at present - hold diuresis given preload dependence * Continue to hold RAAS inhibition and metoprolol * Diuresis p.r.n. 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 --> No further intervention, imaging needed at this time GI - Cholangitis, Biliary Obstruction * Patient with h/o pancreatic adenocarcinoma, s/p ERCP with metal CBD stent in August 2020 * In setting of HoTN, tachycardia, +BCX (GNR), transaminitis, hyperb ilirubinemia, and suspected septic shock, occluded stent likely source * s/p CT-A/P, ERCP with placement of new stent * Advancing diet as tolerated * Ursodiol bid RENAL/LYTES - Acute Kidney Injury * Baseline Cr 1.0 - 1.2 on chart review (to 2018) * Improving on daily labs - 23/05.56 today * Suspect this is prerenal in nature in setting of ongoing septic shock * Promote PO intake * Avoid nephrotoxic medications - * Watson - monitor UOP * No acute needs otherwise ENDO - * ICU Hyperglycemia protocol HEME - Normocytic Anemia * Borderline macrocytic anemia (~8s) appreciated on admission - stable and relatively unchange * This is nearly a 5-point drop from 10/26 (1 week ago), which was 13.2 * In setting of recent chemotherapy and active infection --> PT/INR 12.1 / 1.2 --> Reticulocytes - low * Transfuse Hgb < 7.5 Thrombocytopenia * Improvement today - 113 from 80s yesterday * Suspect secondary to sepsis, H&H stable * Will send off for PF4 anti-heparin Ig's - r/o HIT LINES/IV ACCESS - PIVs intact, L chest port DVT PROPHYLAXIS - Therapeutic lovenox w/ PEs (2) Venous insufficiency: (3) Impaired fasting glucose: (4) Hepatic steatosis: (5) Dyslipidemia: (6) Chronic obstructive pulmonary disease: (7) Hyperparathyroidism, primary: (8) Chronic osteoarthritis: (9) Encounter for pre-operative examination: (10) Adenocarcinoma: (11) Mass of pancreas: (12) Asymptomatic PVCs: (13) Secondary polycythemia: (14) DNR (do not resuscitate): (15) Hypomagnesemia: (16) Pancreatic adenocarcinoma: (17) Transaminitis: (18) Acute kidney injury: Admission and Anticipated Discharge Date Admission Date: November 02, 2020 Supervising Physician Co-Signing Physician Notes Dr. Benito was resident physician during care of patient. I separately evaluated patient for ng portions of the history and the exam. I was present during the critical portion of medical decision making, and I discussed the case with the resident. I generally agree with the findings and plan. Acute kidney injury has improved from 2 days ago, still requiring vasoactive medication however this is decreasing, continue current antibiotics for 2 weeks from yesterday, random cortisol on lower side since we have continued having issues with vasoactive medication we will give her 3 days of stress dose steroids. PT/OT out of bed to chair today. On Lovenox for known PEs, increasi ng Lovenox for improved renal function. I have personally spent 40 minutes of critical care time in the direct management of this patient. This is a life/limb threatening event. This includes time spent evaluating patient, direct bedside care, chart review, placing orders, interpretation of diagnostic studies, discussion with consultants, patient, and/or family members regarding treatment decisions, as well as other required patient management activities. This time is exclusive of all separately billable procedures, and teaching time and separate from and in addition to any other critical care service time. Subjective No acute events overnight. Attempted to wean pressors, with subsequent hypotension; as a result, Levophed was turned back to 0.10. Other than that, she remains hemodynamically stable throughout the night. She reports a lot more energy this morning. She reports "feeling well." She denies any chest pain, palpitations, shortness of breath. In fact, breathing continues to be much improved compared to prior. No chills overnight. Says that her abdomen feels "okay." No nausea or vomiting. No diarrhea. Review of Systems Review of Systems: Constitutional: Denies chills Eyes: Denies double vision ENT: Denies ear pain, sore throat, sinus pain Cardiovascular: Denies Chest pain, chest pressure, palpitations, extremity swelling Respiratory: Denies shortness of breath, cough, sputum production, difficulty breathing Gastrointestinal: Denies nausea, vomiting, constipation, diarrhea Genitourinary: Denies urinary symptoms Musculoskeletal: Denies weakness, muscle aches/pain Integumentary: Denies rash, lesions, bruising Neurological: Denies headache, numbness, tingling, focal weakness Physical Exam Physical Exam: General: Somnolent, but more well appearing 75-year-old female who is lying back in her hospital bed, asleep, upon my arrival. She does awaken easily. She is fully alert and oriented throughout her discussion. HEENT: NCAT. Eyes - Sclera are white, anicteric, and without injection. PERRL. Cardiac: Normal rate and regular rhythm with intermittent ectopy; S1 and S2 present with no murmurs, rubs, or gallops. Jugular venous pulse appreciable approximately 3 fingerbreadths above the right clavicle Pulmonary: Mildly increased respiratory effort with symmetric expansion of the chest. No use of accessory muscles. Trace amounts of crackles in the right lower lobe, clear to auscultation otherwise. Abdominal: Bowel sounds normoactive. Abdomen is soft, nontender, nondistended to palpation this morning. Extremities: Upper and lower extremities are warm and well perfused. Upper extremity pulses 2+ bilaterally. 1+ pitting edema in the LEs -unchanged from prior. Capillary refill was approximately 2 seconds. Results & Data Results & Data ([facility]) Vital Signs (Past 12 Hours) Vital Signs Temp Pulse Resp BP Pulse Ox 11/05/20 03:00 36.8 C 85 15 106/62 94 11/05/20 02:30 36.8 C 76 13 106/59 L 91 11/05/20 02:00 36.9 C 80 14 103/53 L 94 11/05/20 01:30 37.0 C 82 16 106/55 L 91 11/05/20 01:00 37.0 C 80 13 105/56 L 92 11/05/20 00:30 37.1 C 76 14 102/55 L 92 11/05/20 00:00 37.1 C 79 12 101/53 L 92 11/04/20 23:30 37.2 C 84 13 93/51 L 90 11/04/20 23:00 37.2 C 83 17 101/63 90 11/04/20 22:31 37.1 C 85 16 96/60 L 91 11/04/20 22:00 37.2 C 87 14 108/53 L 89 L 11/04/20 21:30 37.2 C 87 15 99/52 L 91 11/04/20 21:00 37.2 C 86 16 112/53 L 91 11/04/20 20:30 37.2 C 88 28 H 100/53 L 92 11/04/20 20:00 37.3 C 87 16 112/59 L 92 11/04/20 19:30 37.2 C 83 17 98/58 L 88 L 11/04/20 19:00 37.2 C 86 18 94/62 L 93 11/04/20 18:30 37.1 C 82 16 95/53 L 91 Resident Activity Tracking Resident Involvement: Resident Care Provided Care Provided: Adult Hospital Medicine (1) Chronic obstructive pulmonary disease COPD type: unspecified COPD Qualified Code(s): J44.9 - Chronic obstructive pulmonary disease, unspecified
[2020-11-05] MEDS: MAGNESIUM SULFATE / D5W 1 GM/100 ML BAG IV SCH ×2 (06:25→08:28)
[2020-11-05] MEDS ORDERED: POTASSIUM PHOSPHATE 21 MMOL in SODIUM CHLORIDE 0.9% 500 ML IV ONE (06:30)
[2020-11-05] MEDS ORDERED: HYDROCORTISONE SOD 50 MG in SYRINGE 0 ML IV STA (08:00)
[2020-11-05] MEDS: NOREPINEPHRINE/D5W 8 MG/508 ML BAG IV SCH ×2 (08:04→21:09)
[2020-11-05] MEDS: PANTOprazole 40 MG TAB PO SCH (08:08)
[2020-11-05] MEDS: CHOLECALCIFEROL 1,000 UNITS 25 MCG TAB PO SCH (08:08)
[2020-11-05] MEDS: ALBUMIN 25% 12.5 GM/50 ML VIAL IV SCH ×2 (08:08→09:04)
[2020-11-05] MEDS: ASCORBIC ACID 500 MG TAB PO SCH (08:08)
[2020-11-05] MEDS: ursodioL 300 MG CAP PO SCH ×2 (08:08→21:48)
[2020-11-05] MEDS: ENOXAPARIN 80 MG/0.8 ML SYR SQ SCH ×2 (08:28→21:46)
--- NOTE | 2020-11-05 09:41 | Billing Data ---
Date of Service November 05, 2020 Coding Level of Care Code Critical Care 1st -74 mins
[2020-11-05] MEDS: HYDROcodone/ACETAMINOPHEN 10/325 TAB PO PRN ×2 (12:39→19:52)
[2020-11-05] MEDS: cefTRIAXone SODIUM 2,000 MG in DEXTROSE 5% 50 ML IV SCH (14:43)
--- NOTE | 2020-11-05 15:21 | Hospitalist Progress Note ---
Date of Service November 05, 2020 Assessment & Plan (1) Septic shock: Plan: Presented with weakness, SOB, and shortly after admission found to be febrile, severely hypotensive that was minimally responsive to crystalloid boluses of IV fluids. She had elevated LFTs and in an obstructive pattern and was noted to have possible blockage of her known biliary stent on imaging. She was transferred to the ICU on the morning of 11/02 and started on Levophed- remains on vasopressors today but pressures are improved and she is mentating -With acute kidney injury, acute respiratory failure with hypoxia Lactate was normal, procalcitonin elevated at 3.48 and then improved Found to have ascending cholangitis secondary to biliary stent obstruction Growing Klebsiella in blood cultures Now status post urgent ERCP on 11/02 which revealed complete blockage of biliary stent with pus and stones and sludge-removal of stent and placement of new stent in CBD -Continue antibiotics for 14 days as per GI-change cefepime to ceftriaxone and continue Flagyl, however could convert to po abx for gram neg bacteremia once stabilizes -Remains in ICU on vasopressors -Follow urine culture-no growth Follow CBC, CMP, magnesium (2) Cholangitis: Plan: As above Continue antibiotics Started Actigall 300 mg p.o. twice daily to prevent future stones and sludge formation (3) Bacteremia: Plan: As above, growing pansensitive Klebsiella Continue ceftriaxone and Flagyl but as above could convert to po abx to finish out 14 days from time of neg cultures repeat cxs NGTD (4) Acute kidney injury: Plan: Creatinine elevated 1.9 upon admission now down to 1.5 after volume resuscitation and vasopressors Follow BMP Renally dose medications urine output is excellent, Watson catheter in place (5) Congestive heart failure: Plan: Acute systolic CHF Echocardiogram showing biventricular failure Unclear etiology-sepsis versus chemotherapy, seems less likely to be ischemic Appreciate cardiology consultation Was given 1 dose of IV Lasix on the 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 Appreciate oncology consultation Holding off on further chemotherapy at this time (9) Hypomagnesemia: Plan: Replace today (10) Dyslipidemia: Plan: Holding home atorvastatin (11) Chronic obstructive pulmonary disease: Plan: Wears 2 L nasal cannula at nighttime Now on continuous supplemental O2 secondary to volume overload but is now weaned down to 2 L Albuterol and ipratropium as needed-give a dose of albuterol today for wheezing and SOB Continue home Anoro (12) Hypertension: Plan: With septic shock, holding home amlodipine, metoprolol Continue home aspirin (13) Hypokalemia: Plan: replaced and resolved Follow BMP (14) Anemia: Plan: Hemoglobin stable at 8.3 today Likely secondary to chemotherapeutic effect Reticulocyte count is low Follow CBC and transfuse if hemoglobin less than 7.5 as per oncology recommendations (15) Thrombocytopenia: Plan: Platelet count omid 85 and now improving, likely secondary to antineoplastic effect as well as could be from sepsis Follow CBC -Would need to hold anticoagulation and aspirin if platelets less than 50 -ICU team has ordered HIT panel (16) Acute and chronic respiratory failure: Plan: On continuous supplemental O2 as noted above secondary to volume overload and pleural effusions in the setting of chronic 2 L nasal cannula at night for COPD Diurese cautiously as needed (17) Constipation: Plan: Now resolved with addition of senna (18) CKD (chronic kidney disease) stage 3, GFR 30-59 ml/min: Plan: CKD stage III With acute kidney injury as above -Avoid nephrotoxins -renally dose meds when appropriate -follow BMP (19) DVT prophylaxis: Plan: With acute PE as above, on therapeutic Lovenox Disposition continued stay in ICU Admission and Anticipated Discharge Date Admission Date: November 02, 2020 Subjective Pt feeling SOB today. Remains on levophed but started on IV HC today. No abd pain. Had large loose stool today. Review of Systems Review of Systems: All systems reviewed & are unremarkable except as noted in HPI & below Physical Exam Constitutional: WD/WN, vitals as above + ill appearing Eyes: + anicteric sclerae Neck: trachea midline, no thyromegaly Respiratory: normal respiratory effort Auscultation: + diminished lung sounds (At the bases bilaterally) and + wheezes (right side) Cardiovascular: RRR, no murmur, no edema Chest (Breasts): Chest: normal inspection of chest Gastrointestinal (Abdomen): Inspection/Auscultation: normal bowel sounds; abdomen not distended Percussion/Palpation: + abdomen tender (Mild in epigastric region without guarding or rebound tenderness) and abdomen soft Musculoskeletal: Extremities: extremities normal to inspection; no cyanosis and no clubbing Skin: no rashes, warm and dry Neurologic: moves all extremities and awake; no focal motor deficits Psychiatric: A+Ox3, euthymic affect Lymphatic: no lymphedema Results & Data Results & Data ([facility]) Vital Signs (Past 12 Hours) Vital Signs Temp Pulse Resp BP Pulse Ox 11/05/20 13:06 37.2 C 92 H 18 94/48 L 94 11/05/20 12:06 37.2 C 89 16 101/55 L 93 11/05/20 11:06 37.2 C 87 15 92/64 L 94 11/05/20 10:06 37.3 C 87 24 102/49 L 94 11/05/20 09:06 37.2 C 95 H 24 88/52 L 92 11/05/20 08:07 37.1 C 91 H 21 109/76 94 11/05/20 08:00 93 H 11/05/20 07:06 37.0 C 84 20 117/54 L 93 Laboratory Results 11/05/20 11/05/20 11/05/20 Range/Units 08:16 04:45 04:45 WBC 9.13 (4.8-10.8) K/uL RBC 2.68 L (4.2-5.4) M/uL Hgb 8.3 L (12.0-16.0) g/dL Hct 25.0 L (37-47) % MCV 93.3 (80-100) fL MCH 31.0 (25-34) pg MCHC 33.2 (32-36) g/dL RDW Std Deviation 48.5 H (36.4-46.3) fL RDW Coeff of Deana 14.2 (11.5-14.5) % Plt Count 113 L (130-400) K/uL MPV 9.2 (7.4-10.4) fL Immature Gran % (Auto) 1.1 % Neut % (Auto) 82.3 % Lymph % (Auto) 13.1 % Bath % (Auto) 3.2 % Eos % (Auto) 0.3 % Baso % (Auto) 0.0 % Neut # (Auto) 7.51 H (1.4-6.5) K/uL Lymph # (Auto) 1.20 (1.2-3.4) K/uL Bath # (Auto) 0.29 (0.11-0.59) K/uL Eos # (Auto) 0.03 (0-0.5) K/uL Baso # (Auto) 0.00 (0-0.2) K/uL Immature Gran # (Auto) 0.10 H (0.00-0.02) K/uL APTT (21.0-31.0) Seconds PTT Ratio Sodium 135 L (136-145) mmol/L Potassium 3.6 D (3.5-5.1) mmol/L Chloride 104 (98-107) mmol/L Carbon Dioxide 29 (21-32) mmol/L Anion Gap 2.0 L (3-11) BUN 31 H (7-18) mg/dl Creatinine 1.56 H (0.6-1.2) mg/dl Est Cr Clr Drug Dosing 31.8 ml/min Est GFR ( Amer) 37.0 ml/min Est GFR (Non-Af Amer) 31.9 ml/min BUN/Creatinine Ratio 19.9 (10-20) Glucose 108 H (70-99) mg/dl Calcium 8.0 L (8.5-10.1) mg/dl Phosphorus 2.4 L (2.5-4.9) mg/dl Magnesium 1.6 L (1.8-2.4) mg/dl Total Bilirubin 0.5 (0.2-1) mg/dl AST 45 H (15-37) U/L ALT 17 (12-78) U/L Alkaline Phosphatase 164 H (45-117) U/L Total Protein 5.1 L (6.4-8.2) gm/dl Albumin 1.9 L (3.4-5.0) gm/dl Globulin 3.2 (2.5-4.0) gm/dl Albumin/Globulin Ratio 0.6 L (0.9-2) Serotonin Release Assay Random Cortisol 21.49 mcg/dl Heparin Depend Plt Ab 11/05/20 11/04/20 Range/Units 04:45 10:22 WBC (4.8-10.8) K/uL RBC (4.2-5.4) M/uL Hgb (12.0-16.0) g/dL Hct (37-47) % MCV (80-100) fL MCH (25-34) pg MCHC (32-36) g/dL RDW Std Deviation (36.4-46.3) fL RDW Coeff of Deana (11.5-14.5) % Plt Count (130-400) K/uL MPV (7.4-10.4) fL Immature Gran % (Auto) % Neut % (Auto) % Lymph % (Auto) % Bath % (Auto) % Eos % (Auto) % Baso % (Auto) % Neut # (Auto) (1.4-6.5) K/uL Lymph # (Auto) (1.2-3.4) K/uL Bath # (Auto) (0.11-0.59) K/uL Eos # (Auto) (0-0.5) K/uL Baso # (Auto) (0-0.2) K/uL Immature Gran # (Auto) (0.00-0.02) K/uL APTT 39.0 H (21.0-31.0) Seconds PTT Ratio 1.5 Sodium (136-145) mmol/L Potassium (3.5-5.1) mmol/L Chloride (98-107) mmol/L Carbon Dioxide (21-32) mmol/L Anion Gap (3-11) BUN (7-18) mg/dl Creatinine (0.6-1.2) mg/dl Est Cr Clr Drug Dosing ml/min Est GFR ( Amer) ml/min Est GFR (Non-Af Amer) ml/min BUN/Creatinine Ratio (10-20) Glucose (70-99) mg/dl Calcium (8.5-10.1) mg/dl Phosphorus (2.5-4.9) mg/dl Magnesium (1.8-2.4) mg/dl Total Bilirubin (0.2-1) mg/dl AST (15-37) U/L ALT (12-78) U/L Alkaline Phosphatase (45-117) U/L Total Protein (6.4-8.2) gm/dl Albumin (3.4-5.0) gm/dl Globulin (2.5-4.0) gm/dl Albumin/Globulin Ratio (0.9-2) Serotonin Release Assay Random Cortisol mcg/dl Heparin Depend Plt Ab PG Care Time/CCT Total # of Minutes Spent Total Time Spent with Patient: Total time spent is greater than 50% in coordinat ion of care (as documented) at patient's floor/unit and/or counseling patient: Coding Level of Care Code 94901 Subseq Hosp Care Lvl 2 Diagnoses Septic shock A41.9; R65.21 Cholangitis K83.09 Bacteremia R78.81 Acute kidney injury N17.9 Congestive heart failure I50.9 Pulmonary embolism, bilateral I26.99 Aortic valve disorder I35.9 Pancreatic adenocarcinoma C25.9 Hypomagnesemia E83.42 Dyslipidemia E78.5 Chronic obstructive pulmonary disease J44.9 COPD type: unspecified COPD Hypertension I10 Hypertension type: unspecified Hypokalemia E87.6 Anemia D64.9 Thrombocytopenia D69.6 Acute and chronic respiratory failure J96.20 Constipation K59.00 CKD (chronic kidney disease) stage 3, GFR 30-59 ml/min N18.30 DVT prophylaxis Z29.9 (1) Chronic obstructive pulmonary disease COPD type: unspecified COPD Qualified Code(s): J44.9 - Chronic obstructive pulmonary disease, unspecified (2) Hypertension Hypertension type: unspecified Qualified Code(s): I10 - Essential (primary) hypertension
[2020-11-05] MEDS ORDERED: ALBUT/IPRATROP 3MG/0.5MG NEB 3 ML VIAL NEB STA (16:08)
[2020-11-05] MEDS: MIDODRINE HCL 2.5 MG TAB PO SCH (19:52)
[2020-11-05] MEDS: UMECLIDINIUM/VILANTEROL 62.5/25MCG 7 PUFFS/INHALER INH SCH (21:47)
[2020-11-05] MEDS: GABAPENTIN 300 MG CAP PO SCH (21:48)
[2020-11-06] MEDS: metroNIDAZOLE 500 MG/100 ML BAG IV SCH ×2 (01:45→09:20)
[2020-11-06] MEDS: HYDROcodone/ACETAMINOPHEN 10/325 TAB PO PRN ×3 (04:20→21:35)
[2020-11-06 05:00] LABS: Basophils # (auto) 0.01 K/uL (0-0.2); Basophils % (auto) 0.1 %; Hematocrit (blood only) 22.5 % (37-47); Hemoglobin 7.5 g/dL (12.0-16.0); Immature Granulocytes # (auto) 0.09 K/uL (0.00-0.02); Immature Granulocytes % (auto) 1.3 %; Lymphocytes # (auto) 0.64 K/uL (1.2-3.4); Lymphocytes % (auto) 9.6 %; Mean Corpuscular Hemoglobin 30.7 pg (25-34); Mean Corpuscular Hgb Conc 33.3 g/dL (32-36); Mean Corpuscular Volume 92.2 fL (80-100); Mean Platelet Volume 9.6 fL (7.4-10.4); Monocytes # (auto) 0.12 K/uL (0.11-0.59); Monocytes % (auto) 1.8 %; Neutrophils # (auto) 5.83 K/uL (1.4-6.5); Neutrophils % (auto) 87.2 %; Platelet Count 107 K/uL (130-400); RDW Standard Deviation 47.4 fL (36.4-46.3); Red Blood Count 2.44 M/uL (4.2-5.4); White Blood Count 6.69 K/uL (4.8-10.8)
[2020-11-06 05:31] LABS: BUN Creatinine Ratio 19.6 (10-20); Creatinine Clr Calc Pharmacy 35.7 ml/min; Est GFR (African American) 42.6 ml/min; Est GFR (Non-African American) 36.7 ml/min; Magnesium 1.8 mg/dl (1.8-2.4); Phosphorus 2.3 mg/dl (2.5-4.9); Potassium 3.2 mmol/L (3.5-5.1)
[2020-11-06] MEDS ORDERED: POTASSIUM PHOS 3 MMOL/1 ML INFUSION IV STA (06:00)
[2020-11-06 06:13] LABS: Giant Platelets 1+
[2020-11-06] MEDS: MAGNESIUM SULFATE / D5W 1 GM/100 ML BAG IV SCH ×2 (06:29→07:34)
[2020-11-06] MEDS ORDERED: POTASSIUM PHOSPHATE 40 MMOL in SODIUM CHLORIDE 0.9% 1000ML 1,000 ML IV ONE (06:30)
[2020-11-06] MEDS: MIDODRINE HCL 2.5 MG TAB PO SCH ×3 (07:37→16:34)
[2020-11-06] MEDS: CHOLECALCIFEROL 1,000 UNITS 25 MCG TAB PO SCH (09:20)
[2020-11-06] MEDS: HYDROCORTISONE SOD 50 MG in SYRINGE 0 ML IV SCH (09:21)
[2020-11-06] MEDS: ASPIRIN 81 MG ECTAB PO SCH (09:21)
[2020-11-06] MEDS: ENOXAPARIN 80 MG/0.8 ML SYR SQ SCH ×2 (09:21→21:25)
[2020-11-06] MEDS: ASCORBIC ACID 500 MG TAB PO SCH (09:21)
[2020-11-06] MEDS: PANTOprazole 40 MG TAB PO SCH (09:21)
[2020-11-06] MEDS: ursodioL 300 MG CAP PO SCH ×2 (09:21→21:27)
[2020-11-06] MEDS ORDERED: POTASSIUM CHLORIDE 20 MEQ/15 ML UDC PO STA (10:43)
--- NOTE | 2020-11-06 10:45 | Critical Care Progress Note ---
Date of Service November 06, 2020 Assessment & Plan (1) Pulmonary embolism, bilateral: Plan: Reason Critically Ill: Dora is a very pleasant 75-year-old female with a notable past medical history of pancreatic adenocarcinoma status post ERCP in August with placement of common bile duct stent (in the context of sepsis), COPD, hyperparathyroidism, dyslipidemia, hypertension who presented to [facility] for evaluation of chest congestion, shortness of breath, generalized weakness, decreased oral intake x several days, subsequently found to be hypotensive, tachycardic, and febrile in the context of a fluid-filled CBD stent on CT-A/P and bilateral pulmonary emboli. She requires ICU-level care for management of her septic shock. Neuro - [facility] ICU: NEGATIVE Sedation: None Analgesia: None Metabolic Encephalopathy * Resolved. Somnolence continues. * Secondary to ongoing sepsis * No major lyte abnormalities Cardiac / ID / Pulm - Septic Shock * Patient presenting with hypotension, tachycardia, fever, good peripheral perfusion in setting of intraductal dilatation (around previous stent) and bilateral pulmonary emboli * pressors discontinued yesterday * In setting of presenting symptoms, suspect this is most likely secondary to septic shock --> Source likely hepatic / intraductal, CT-A/P revealing of dilatation around previous stent --> ERCP 11/02 demonstrated occluded stent of biliary tree - new stent placed into CBD by GI --> BCX demonstrating reis-sensitive Klebsiella x 1 --> Continue CFTX (will likely require through at least 11/15, 14 day course) --> Repeat BCX demonstrating gram-positive cocci in clusters however MRSA negative --> Solu-Cortef 50mg x 3 days * Pulmonary emboli also considered within this process -- BNP > 25k --> Echo demonstrating moderately reduced RV function and elevated pressures --> At present, lower suspicion this is cause of underlying shock Midodrine for blood pressure support Repeat blood cultures Pulmonary Emboli * Segmental and subsegmental b/l pulmonary emboli noted on admission CTA-Chest * LE Dopplers: No evidence of DVT * Continue Lovenox Cardiomyopathy / HFrEF * TTE demonstrating reduced biventricular function -- LVEF 25-30% -- alongside BNP > 35k * Etiology unclear at present - per cardiology, unlikely to be ischemic * Still trace signs of volume excess, but asymptomatic at present - hold diuresis given preload dependence * Continue to hold RAAS inhibition and metoprolol * Diuresis p.r.n. 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 --> No further intervention, imaging needed at this time GI - Cholangitis, Biliary Obstruction * Patient with h/o pancreatic adenocarcinoma, s/p ERCP with metal CBD stent in August 2020 * In setting of HoTN, tachycardia, +BCX (GNR), transaminitis, hyperbilirubin emia, and suspected septic shock, occluded stent likely source * s/p CT-A/P, ERCP with placement of new stent * Advancing diet as tolerated * Ursodiol bid RENAL/LYTES - Acute Kidney Injury * Baseline Cr 1.0 - 1.2 on chart review (to 2018) * Improving on daily labs * Suspect this is prerenal in nature in setting of ongoing septic shock * Promote PO intake * Avoid nephrotoxic medications - * Watson - monitor UOP * No acute needs otherwise ENDO - * ICU Hyperglycemia protocol HEME - Normocytic Anemia * Borderline macrocytic anemia (~8s) appreciated on admission - stable and relatively unchange * This is nearly a 5-point drop from 10/26 (1 week ago), which was 13.2 * In setting of recent chemotherapy and active infection --> PT/INR 12.1 / 1.2 --> Reticulocytes - low * Transfuse Hgb < 7.5 Thrombocytopenia * Improvement today - 113 from 80s yesterday * Suspect secondary to sepsis, H&H stable * Will send off for PF4 anti-heparin Ig's - r/o HIT LINES/IV ACCESS - PIVs intact, L chest port DVT PROPHYLAXIS - Therapeutic lovenox w/ PEs Patient stable for downgrade out of ICU (2) Venous insufficiency: (3) Impaired fasting glucose: (4) Hepatic steatosis: (5) Dyslipidemia: (6) Chronic obstructive pulmonary disease: (7) Hyperparathyroidism, primary: (8) Chronic osteoarthritis: (9) Encounter for pre-operative examination: (10) Adenocarcinoma: (11) Mass of pancreas: (12) Asymptomatic PVCs: (13) Secondary polycythemia: (14) DNR (do not resuscitate): (15) Hypomagnesemia: (16) Pancreatic adenocarcinoma: (17) Transaminitis: (18) Acute kidney injury: Admission and Anticipated Discharge Date Admission Date: November 02, 2020 Subjective No overnight events off vasoactive since yesterday Physical Exam Physical Exam: General: Alert. nontoxic. Skin: Warm, dry, Head: Atraumatic Ears, nose, mouth and throat: airway patent Cardiovascular: Normal peripheral perfusion Respiratory: no respiratory distress Gastrointestinal: Non distended Musculoskeletal: No deformity Results & Data Results & Data ([facility]) Vital Signs (Past 12 Hours) Vital Signs Temp Pulse Resp BP Pulse Ox 11/06/20 09:06 36.7 C 80 10 L 97/46 L 95 11/06/20 08:06 36.7 C 83 17 98/44 L 96 11/06/20 08:00 77 11/06/20 07:06 36.7 C 77 23 94/47 L 95 11/06/20 05:36 36.6 C 79 18 100/56 L 96 11/06/20 05:06 36.7 C 80 17 101/59 L 94 11/06/20 04:06 36.9 C 80 13 112/61 92 11/06/20 03:36 36.9 C 85 25 H 108/51 L 94 11/06/20 03:06 36.9 C 82 28 H 111/49 L 93 11/06/20 02:36 36.9 C 83 20 103/52 L 93 11/06/20 02:06 36.9 C 85 13 104/54 L 94 11/06/20 01:36 36.9 C 82 17 100/53 L 93 11/06/20 01:06 36.9 C 82 13 107/52 L 94 11/06/20 00:36 36.9 C 83 16 110/61 93 11/06/20 00:07 36.8 C 84 20 117/71 93 11/06/20 00:00 77 11/05/20 23:36 36.9 C 82 15 97/59 L 94 11/05/20 23:06 36.8 C 85 23 105/47 L 95 Laboratory Results 11/06/20 11/06/20 11/04/20 Range/Units 04:00 04:00 10:22 WBC 6.69 (4.8-10.8) K/uL RBC 2.44 L (4.2-5.4) M/uL Hgb 7.5 L (12.0-16.0) g/dL Hct 22.5 L (37-47) % MCV 92.2 (80-100) fL MCH 30.7 (25-34) pg MCHC 33.3 (32-36) g/dL RDW Std Deviation 47.4 H (36.4-46.3) fL RDW Coeff of Deana 14.0 (11.5-14.5) % Plt Count 107 L (130-400) K/uL MPV 9.6 (7.4-10.4) fL Immature Gran % (Auto) 1.3 % Neut % (Auto) 87.2 % Lymph % (Auto) 9.6 % Polk % (Auto) 1.8 % Eos % (Auto) 0.0 % Baso % (Auto) 0.1 % Neut # (Auto) 5.83 (1.4-6.5) K/uL Lymph # (Auto) 0.64 L (1.2-3.4) K/uL Polk # (Auto) 0.12 (0.11-0.59) K/uL Eos # (Auto) 0.00 (0-0.5) K/uL Baso # (Auto) 0.01 (0-0.2) K/uL Immature Gran # (Auto) 0.09 H (0.00-0.02) K/uL Giant Platelets 1+ Sodium 136 (136-145) mmol/L Potassium 3.2 L (3.5-5.1) mmol/L Chloride 105 (98-107) mmol/L Carbon Dioxide 25 (21-32) mmol/L Anion Gap 6.0 (3-11) BUN 27 H (7-18) mg/dl Creatinine 1.39 H (0.6-1.2) mg/dl Est Cr Clr Drug Dosing 35.7 ml/min Est GFR ( Amer) 42.6 ml/min Est GFR (Non-Af Amer) 36.7 ml/min BUN/Creatinine Ratio 19.6 (10-20) Glucose 99 (70-99) mg/dl Calcium 8.0 L (8.5-10.1) mg/dl Phosphorus 2.3 L (2.5-4.9) mg/dl Magnesium 1.8 (1.8-2.4) mg/dl Serotonin Release Assay Heparin Depend Plt Ab Bld Cult Staph aureus PCR (Negative) Blood Culture MRSA PCR (Negative) 11/04/20 Range/Units 04:31 WBC (4.8-10.8) K/uL RBC (4.2-5.4) M/uL Hgb (12.0-16.0) g/dL Hct (37-47) % MCV (80-100) fL MCH (25-34) pg MCHC (32-36) g/dL RDW Std Deviation (36.4-46.3) fL RDW Coeff of Deana (11.5-14.5) % Plt Count (130-400) K/uL MPV (7.4-10.4) fL Immature Gran % (Auto) % Neut % (Auto) % Lymph % (Auto) % Polk % (Auto) % Eos % (Auto) % Baso % (Auto) % Neut # (Auto) (1.4-6.5) K/uL Lymph # (Auto) (1.2-3.4) K/uL Polk # (Auto) (0.11-0.59) K/uL Eos # (Auto) (0-0.5) K/uL Baso # (Auto) (0-0.2) K/uL Immature Gran # (Auto) (0.00-0.02) K/uL Giant Platelets Sodium (136-145) mmol/L Potassium (3.5-5.1) mmol/L Chloride (98-107) mmol/L Carbon Dioxide (21-32) mmol/L Anion Gap (3-11) BUN (7-18) mg/dl Creatinine (0.6-1.2) mg/dl Est Cr Clr Drug Dosing ml/min Est GFR ( Amer) ml/min Est GFR (Non-Af Amer) ml/min BUN/Creatinine Ratio (10-20) Glucose (70-99) mg/dl Calcium (8.5-10.1) mg/dl Phosphorus (2.5-4.9) mg/dl Magnesium (1.8-2.4) mg/dl Serotonin Release Assay Heparin Depend Plt Ab Bld Cult Staph aureus PCR Negative (Negative) Blood Culture MRSA PCR Negative (Negative) Coding Level of Care Code 82905 Subseq Obs Care Lvl 3 Diagnoses Pulmonary embolism, bilateral I26.99 Venous insufficiency I87.2 Impaired fasting glucose R73.01 Hepatic steatosis K76.0 Dyslipidemia E78.5 Chronic obstructive pulmonary disease J44.9 COPD type: unspecified COPD Hyperparathyroidism, primary E21.0 Chronic osteoarthritis M19.90 Encounter for pre-operative examination Z01.818 Adenocarcinoma C80.1 Mass of pancreas K86.89 Asymptomatic PVCs I49.3 Secondary polycythemia D75.1 DNR (do not resuscitate) Z66 Hypomagnesemia E83.42 Pancreatic adenocarcinoma C25.9 Transaminitis R74.01 Acute kidney injury N17.9 (1) Chronic obstructive pulmonary disease COPD type: unspecified COPD Qualified Code(s): J44.9 - Chronic obstructive pulmonary disease, unspecified
[2020-11-06 13:43] LABS: Cdiff Antigen Positive; Cdiff Toxin A+B Negative Cdiff Toxin (Negative)
[2020-11-06] MEDS: cefTRIAXone SODIUM 2,000 MG in DEXTROSE 5% 50 ML IV SCH (13:47)
[2020-11-06] MEDS ORDERED: DIPHENOXYLATE/ATROPINE 2.5/0.025MG TAB PO ONE (14:07)
[2020-11-06] MEDS ORDERED: POTASSIUM CHLORIDE CRTAB 20 MEQ TABCR PO STA (14:08)
--- NOTE | 2020-11-06 14:26 | Hospitalist Progress Note ---
Date of Service November 06, 2020 Assessment & Plan (1) Septic shock: Plan: Presented with weakness, SOB, and shortly after admission found to be febrile, severely hypotensive that was minimally responsive to crystalloid boluses of IV fluids. She had elevated LFTs and in an obstructive pattern and was noted to have possible blockage of her known biliary stent on imaging. She was transferred to the ICU on the morning of 11/02 and started on Levophed- weaned off vasopressors on evening of 11/05 after starting IV hydrocortisone -With acute kidney injury now resolved; acute respiratory failure with hypoxia persists but improved Lactate was normal, procalcitonin elevated at 3.48 and then improved Found to have ascending cholangitis secondary to biliary stent obstruction Growing Klebsiella in blood cultures Repeat BCxs with SENIOR ELECTRONICS TECHNICIAN-contaminant Is now status post urgent ERCP on 11/02 which revealed complete blockage of biliary stent with pus and stones and sludge-removal of stent and placement of new stent in CBD -Continue antibiotics for 14 days as per GI-continue ceftriaxone and can now dc Flagyl, however could convert to po abx for gram neg bacteremia once stabilizes -downgrade out of ICU on 11/06 -Follow urine culture-no growth Follow CBC, CMP, magnesium, phos in AM and replete as needed -started midodrine 5mg po tid -continue IV hydrocortisone x 1 more day (2) Cholangitis: Plan: As above Continue antibiotics Started Actigall 300 mg p.o. twice daily to prevent future stones and sludge formation (3) Bacteremia: Plan: As above, growing pansensitive Klebsiella Continue ceftriaxone as above could convert to po abx to finish out 14 days from time of neg cultures repeat cxs with contaminant SENIOR ELECTRONICS TECHNICIAN 1/2 repeat BCxs again on 11/06 (4) Acute kidney injury: Plan: Creatinine elevated 1.9 upon admission now down to 1.3 after volume resuscitation and vasopressors Follow BMP Renally dose medications urine output is excellent, Watson catheter in place-keep for now (5) Congestive heart failure: Plan: Acute systolic CHF Echocardiogram showing biventricular failure Unclear etiology-sepsis versus chemotherapy, seems less likely to be ischemic Appreciate cardiology consultation Was given 1 dose of IV Lasix on the criminal defense attorney of 11/03 for worsening hypoxia Has bilateral pleural effusions on chest x-ray Once blood pressure stabilized, restart home Toprol-XL and consider ARB addition to replace amlodipine -Hold home HCTZ and may need oral Lasix in the future once BPs improve (6) Pulmonary embolism, bilateral: Plan: CT angiography of chest demonstrating segmental and subsegmental pulmonary emboli and right lower lobe and left upper lobe. 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 Appreciate oncology consultation Holding off on further chemotherapy at this time-in fact, pt and her family all in agreement to not continue any further chemotherapy Agreeable to consultation with Palliative Medicine for further discussion of goa ls of care (9) Hypomagnesemia: Plan: Replace and follow level in AM (10) Dyslipidemia: Plan: Holding home atorvastatin (11) Chronic obstructive pulmonary disease: Plan: Wears 2 L nasal cannula at nighttime Now on continuous supplemental O2 secondary to volume overload but is now weaned down to 2 L Albuterol and ipratropium as needed Continue home Anoro (12) Hypertension: Plan: With septic shock, holding home amlodipine, metoprolol Continue home aspirin (13) Hypokalemia: Plan: replace Follow BMP (14) Anemia: Plan: Hemoglobin down further to 7.5, no active bleeding Likely secondary to chemotherapeutic effect Reticulocyte count is low Follow CBC and transfuse if hemoglobin less than 7.5 as per oncology recommendations (15) Thrombocytopenia: Plan: Platelet count omid 85 and now continues to be improving, likely secondary to antineoplastic effect as well as could be from sepsis Follow CBC -Would need to hold anticoagulation and aspirin if platelets less than 50 -ICU team has ordered HIT panel which was negative (16) Acute and chronic respiratory failure: Plan: On continuous supplemental O2 as noted above secondary to volume overload and pleural effusions in the setting of chronic 2 L nasal cannula at night for COPD Diurese cautiously as needed (17) CKD (chronic kidney disease) stage 3, GFR 30-59 ml/min: Plan: CKD stage III With acute kidney injury as above -Avoid nephrotoxins -renally dose meds when appropriate -follow BMP (18) Diarrhea: Plan: profuse C. diff gene positive but toxin negative likely 2/2 abx and liquids diet restart home probiotics Lomotil x 1 given today (19) DVT prophylaxis: Plan: With acute PE as above, on therapeutic Lovenox Disposition continued stay, but downgrade to PCU PT/OT consults in place, will need rehab most likely and she is agreeable to this Admission and Anticipated Discharge Date Admission Date: November 02, 2020 Subjective Pt had diarrhea all night and C. diff gene positive but toxin neg. Has some abd pain and using hydrocodone. Very fatigued. Is eating reg food. No nausea. Tele with sinus with PVCs Review of Systems Review of Systems: All systems reviewed & are unremarkable except as noted in HPI & below Physical Exam Constitutional: WD/WN, vitals as above + ill appearing Eyes: + anicteric sclerae ENMT: external ear and nose normal, oropharynx normal Neck: trachea midline, no thyromegaly Respiratory: normal respiratory effort Auscultation: + diminished lung sounds (At the bases bilaterally) and + bronchial breath sounds (at left base) Cardiovascular: RRR, no murmur, no edema Chest (Breasts): Chest: normal inspection of chest Gastrointestinal (Abdomen): Inspection/Auscultation: normal bowel sounds; abdomen not distended Percussion/Palpation: + abdomen tender (Mild in epigastric region without guarding or rebound tenderness) and abdomen soft Musculoskeletal: Extremities: extremities normal to inspection; no cyanosis and no clubbing Skin: no rashes, warm and dry Neurologic: moves all extremities and awake; no focal motor deficits Psychiatric: A+Ox3, euthymic affect Lymphatic: no lymphedema Results & Data Results & Data ([facility]) Vital Signs (Past 12 Hours) Vital Signs Temp Pulse Resp BP Pulse Ox 11/06/20 14:06 36.9 C 83 19 114/63 94 11/06/20 13:06 36.8 C 77 18 104/51 L 98 11/06/20 12:06 36.7 C 82 19 105/53 L 96 11/06/20 11:36 36.6 C 86 21 107/56 L 95 11/06/20 10:06 36.7 C 70 18 94/47 L 99 11/06/20 09:06 36.7 C 80 10 L 97/46 L 95 11/06/20 08:06 36.7 C 83 17 98/44 L 96 11/06/20 08:00 77 11/06/20 07:06 36.7 C 77 23 94/47 L 95 11/06/20 05:36 36.6 C 79 18 100/56 L 96 11/06/20 05:06 36.7 C 80 17 101/59 L 94 11/06/20 04:06 36.9 C 80 13 112/61 92 11/06/20 03:36 36.9 C 85 25 H 108/51 L 94 11/06/20 03:06 36.9 C 82 28 H 111/49 L 93 11/06/20 02:36 36.9 C 83 20 103/52 L 93 Laboratory Results 11/06/20 11/06/20 11/06/20 Range/Units 11:05 04:00 04:00 WBC 6.69 (4.8-10.8) K/uL RBC 2.44 L (4.2-5.4) M/uL Hgb 7.5 L (12.0-16.0) g/dL Hct 22.5 L (37-47) % MCV 92.2 (80-100) fL MCH 30.7 (25-34) pg MCHC 33.3 (32-36) g/dL RDW Std Deviation 47.4 H (36.4-46.3) fL RDW Coeff of Deana 14.0 (11.5-14.5) % Plt Count 107 L (130-400) K/uL MPV 9.6 (7.4-10.4) fL Immature Gran % (Auto) 1.3 % Neut % (Auto) 87.2 % Lymph % (Auto) 9.6 % Churchill % (Auto) 1.8 % Eos % (Auto) 0.0 % Baso % (Auto) 0.1 % Neut # (Auto) 5.83 (1.4-6.5) K/uL Lymph # (Auto) 0.64 L (1.2-3.4) K/uL Churchill # (Auto) 0.12 (0.11-0.59) K/uL Eos # (Auto) 0.00 (0-0.5) K/uL Baso # (Auto) 0.01 (0-0.2) K/uL Immature Gran # (Auto) 0.09 H (0.00-0.02) K/uL Giant Platelets 1+ Sodium 136 (136-145) mmol/L Potassium 3.2 L (3.5-5.1) mmol/L Chloride 105 (98-107) mmol/L Carbon Dioxide 25 (21-32) mmol/L Anion Gap 6.0 (3-11) BUN 27 H (7-18) mg/dl Creatinine 1.39 H (0.6-1.2) mg/dl Est Cr Clr Drug Dosing 35.7 ml/min Est GFR ( Amer) 42.6 ml/min Est GFR (Non-Af Amer) 36.7 ml/min BUN/Creatinine Ratio 19.6 (10-20) Glucose 99 (70-99) mg/dl Calcium 8.0 L (8.5-10.1) mg/dl Phosphorus 2.3 L (2.5-4.9) mg/dl Magnesium 1.8 (1.8-2.4) mg/dl Serotonin Release Assay Stl C. diff Tox B Gene Positive Cdiff Gene H (Neg) Stl C.difficile Tox A&B Negative Cdiff Toxin (Negative) Heparin Depend Plt Ab Bld Cult Staph aureus PCR (Negative) Blood Culture MRSA PCR (Negative) 11/04/20 11/04/20 Range/Units 10:22 04:31 WBC (4.8-10.8) K/uL RBC (4.2-5.4) M/uL Hgb (12.0-16.0) g/dL Hct (37-47) % MCV (80-100) fL MCH (25-34) pg MCHC (32-36) g/dL RDW Std Deviation (36.4-46.3) fL RDW Coeff of Deana (11.5-14.5) % Plt Count (130-400) K/uL MPV (7.4-10.4) fL Immature Gran % (Auto) % Neut % (Auto) % Lymph % (Auto) % Churchill % (Auto) % Eos % (Auto) % Baso % (Auto) % Neut # (Auto) (1.4-6.5) K/uL Lymph # (Auto) (1.2-3.4) K/uL Churchill # (Auto) (0.11-0.59) K/uL Eos # (Auto) (0-0.5) K/uL Baso # (Auto) (0-0.2) K/uL Immature Gran # (Auto) (0.00-0.02) K/uL Giant Platelets Sodium (136-145) mmol/L Potassium (3.5-5.1) mmol/L Chloride (98-107) mmol/L Carbon Dioxide (21-32) mmol/L Anion Gap (3-11) BUN (7-18) mg/dl Creatinine (0.6-1.2) mg/dl Est Cr Clr Drug Dosing ml/min Est GFR ( Amer) ml/min Est GFR (Non-Af Amer) ml/min BUN/Creatinine Ratio (10-20) Glucose (70-99) mg/dl Calcium (8.5-10.1) mg/dl Phosphorus (2.5-4.9) mg/dl Magnesium (1.8-2.4) mg/dl Serotonin Release Assay Stl C. diff Tox B Gene (Neg) Stl C.difficile Tox A&B (Negative) Heparin Depend Plt Ab Bld Cult Staph aureus PCR Negative (Negative) Blood Culture MRSA PCR Negative (Negative) PG Care Time/CCT Total # of Minutes Spent Total Time Spent with Patient: Total time spent is greater than 50% in coordination of care (as documented) at patient's floor/unit and/or counseling patient: Coding Level of Care Code 72980 Subseq Hosp Care Lvl 3 Diagnoses Septic shock A41.9; R65.21 Cholangitis K83.09 Bacteremia R78.81 Acute kidney injury N17.9 Congestive heart failure I50.9 Pulmonary embolism, bilateral I26.99 Aortic valve disorder I35.9 Pancreatic adenocarcinoma C25.9 Hypomagnesemia E83.42 Dyslipidemia E78.5 Chronic obstructive pulmonary disease J44.9 COPD type: unspecified COPD Hypertension I10 Hypertension type: unspecified Hypokalemia E87.6 Anemia D64.9 Thrombocytopenia D69.6 Acute and chronic respiratory failure J96.20 CKD (chronic kidney disease) stage 3, GFR 30-59 ml/min N18.30 DVT prophylaxis Z29.9 Diarrhea R19.7 (1) Chronic obstructive pulmonary disease COPD type: unspecified COPD Qualified Code(s): J44.9 - Chronic obstructive pulmonary disease, unspecified (2) Hypertension Hypertension type: unspecified Qualified Code(s): I10 - Essential (primary) hypertension
[2020-11-06] MEDS: SACCHAROMYCES BOULARDII 250 MG CAP PO SCH (15:35)
[2020-11-06] MEDS: GABAPENTIN 300 MG CAP PO SCH (21:25)
[2020-11-06] MEDS: UMECLIDINIUM/VILANTEROL 62.5/25MCG 7 PUFFS/INHALER INH SCH (21:26)
[2020-11-07 05:37] LABS: Basophils # (auto) 0.01 K/uL (0-0.2); Basophils % (auto) 0.1 %; Hemoglobin 7.6 g/dL (12.0-16.0); Immature Granulocytes # (auto) 0.43 K/uL (0.00-0.02); Immature Granulocytes % (auto) 4.7 %; Lymphocytes # (auto) 0.89 K/uL (1.2-3.4); Lymphocytes % (auto) 9.8 %; Mean Corpuscular Hemoglobin 30.4 pg (25-34); Mean Platelet Volume 9.3 fL (7.4-10.4); Monocytes # (auto) 0.39 K/uL (0.11-0.59); Monocytes % (auto) 4.3 %; Neutrophils # (auto) 7.34 K/uL (1.4-6.5); Neutrophils % (auto) 81.1 %; Nucleated RBC # (auto) 0.02 K/uL (0-0); Nucleated RBC % (auto) 0.2 %; Platelet Count 150 K/uL (130-400); RDW Coefficient of Variation 14.1 % (11.5-14.5); RDW Standard Deviation 47.2 fL (36.4-46.3); White Blood Count 9.06 K/uL (4.8-10.8)
[2020-11-07 06:16] LABS: BUN Creatinine Ratio 18.8 (10-20); Calcium 7.7 mg/dl (8.5-10.1); Creatinine Clr Calc Pharmacy 42.2 ml/min; Est GFR (African American) 51.4 ml/min; Est GFR (Non-African American) 44.3 ml/min; Phosphorus 3.7 mg/dl (2.5-4.9); Potassium 4.1 mmol/L (3.5-5.1)
[2020-11-07 06:20] LABS: RBC Morphology Unremarkable; Toxic Granulation Occasional
[2020-11-07] MEDS: HYDROCORTISONE SOD 50 MG in SYRINGE 0 ML IV SCH (08:14)
[2020-11-07] MEDS: PROCHLORPERAZINE MALEATE 10 MG TAB PO PRN ×2 (08:15→16:30)
[2020-11-07] MEDS: PANTOprazole 40 MG TAB PO SCH (08:15)
[2020-11-07] MEDS: ursodioL 300 MG CAP PO SCH ×2 (08:15→19:46)
[2020-11-07] MEDS: CHOLECALCIFEROL 1,000 UNITS 25 MCG TAB PO SCH (08:15)
[2020-11-07] MEDS: SACCHAROMYCES BOULARDII 250 MG CAP PO SCH (08:16)
[2020-11-07] MEDS: ENOXAPARIN 80 MG/0.8 ML SYR SQ SCH ×2 (08:16→19:46)
[2020-11-07] MEDS: MIDODRINE HCL 2.5 MG TAB PO SCH ×3 (08:16→16:30)
[2020-11-07] MEDS: ASCORBIC ACID 500 MG TAB PO SCH (08:16)
[2020-11-07] MEDS: HYDROcodone/ACETAMINOPHEN 10/325 TAB PO PRN ×2 (08:23→19:47)
--- NOTE | 2020-11-07 12:28 | Palliative Care Consultation ---
Date of Consultation November 07, 2020 Assessment & Plan (1) Chronic osteoarthritis: Chronic pain controlled with hydrocodone/APAP. We discussed other options without tylenol but she feels that this works best and is not exceeding 2 g per day. (2) Palliative care encounter: I talked with Dora about how she is coping with her illness. 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 She has discussed her illness with her family and her daughters are very supportive. Her has been having more difficulty accepting her illness. He also has chronic medical problems and is "frail" according to Dora. She has indicated that she would like to try rehab to see if she could get stronger to be able to be at home. She is being seen by PT/OT for evaluation. She has talked with Dr. Hodges and will follow up with him as an outpatient but she feels that another round of chemotherapy "would kill me". She asked me to talk with her to help him understand her prognosis and her wishes. I tried to call but there was no ans wer. We will continue to reach out to him and assist with goals of care. (3) Pulmonary embolism, bilateral: (4) Acute kidney injury: Resolved (5) Pancreatic adenocarcinoma: (6) Transaminitis: (7) Chronic obstructive pulmonary disease: COPD type: unspecified COPD Qualified Code(s): J44.9 - Chronic obstructive pulmonary disease, unspecified History of Present Illness Reason for Consultation: goals of care Requesting Physician: Dr. Beckman Attending Physician: Jessica Beckman MD History of Present Illness 75 yo lady with pancreatic cancer who had just had her first chemotherapy treatment. She was admitted with shortness of breath and weakness. She reports that at baseline, she is able to ambulate around the house with a walker. On the day of admission, she was unable to get out of the chair with two person assist. She was found to have bilateral pulmonary emboli and was hypotensive on admission due to sepsis. Blood cultures are positive for Kelbsiella. She was on pressors in the ICU but is no longer on pressors. In addition, she had ERCP stent replacement of an occluded CBD stent placed in August of this year and cholangitis. 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 She has had encephalopathy and ELIUD which have both improved. She is cogent and willing to discuss goals of care but does have some trouble maintaining her train of thought. She has chronic pain in her low back with spinal stenosis and pain in her left knee due to osteoarthritis. She has been taking lortab 20/650 every six hours as needed. She tells me that she has tried other medications including morphine and dilaudid but did not feel that they were as effective. Allergies Allergy/AdvReac Type Severity Reaction Status Date / Time bupropion Allergy Severe Lip Verified 11/01/20 21:12 swelling bacitracin Allergy Unknown Emaceration Verified 11/01/20 21:12 of skin at site neomycin Allergy Unknown Emaceration Verified 11/01/20 21:12 of skin at site polymyxin B Allergy Unknown Emaceration Verified 11/01/20 21:12 of skin at site Aminoglycosides AdvReac Intermediate Skin Verified 11/01/20 21:12 irritation Home Medications Medication Instructions Recorded Confirmed Type ascorbic acid (vitamin C) 1,000 mg 1 g PO QAM 09/25/18 11/01/20 History tablet omega 3 350 mg-dha 235 mg-epa 90 1 cap PO QAM 09/25/18 11/01/20 History mg-fish oil 597 mg capsule,delay rel ([place]-3) vitamin E 100 unit capsule 100 units PO QAM 10/02/18 11/01/20 History cholecalciferol (vitamin D3) 25 1,000 units PO QAM #90 cap 04/06/19 11/01/20 History mcg (1,000 unit) capsule gabapentin 300 mg capsule 300 mg PO HS #90 cap 02/02/20 11/01/20 Rx aspirin 81 mg tablet,delayed 81 mg PO Q2D 02/03/20 11/01/20 History release atorvastatin 20 mg tablet 20 mg PO HS 02/16/20 11/01/20 History vit C 250 mg-vit E 90 mg-zinc 40 1 tab PO BID 02/16/20 11/01/20 History mg-copper 1 [id number] capsule (PreserVision AREDS-2) albuterol sulfate 90 mcg/actuation 2 puff INHALATION Q6H PRN #8.5 g 02/27/20 11/01/20 Rx aerosol inhaler metoprolol succinate 25 mg 25 mg PO QAM 11/19/20 07/12/21 History tablet,extended release 24 hr garlic 1,000 mg PO QAM 04/09/20 11/01/20 History nortriptyline 25 mg capsule 25 - 50 mg PO HS #60 cap 05/25/20 11/01/20 Rx Saccharomyces boulardii 250 mg 250 mg PO QAM 10/20/20 11/01/20 History capsule (Florastor) amlodipine 5 mg tablet 5 mg PO QAM 10/20/20 11/01/20 History hydrochlorothiazide 25 mg tablet 25 mg PO QAM 10/20/20 11/01/20 History pantoprazole 40 mg tablet,delayed 40 mg PO QAM 10/20/20 11/01/20 History release umeclidinium 62.5 mcg-vilanterol 1 inh INHALATION HS 10/20/20 11/01/20 History 25 mcg/actuation powdr for inhalation (Anoro Ellipta) hydrocodone 10 mg-acetaminophen 2 tab PO Q6H PRN 30 Days #240 tab 10/29/20 11/01/20 Rx 325 mg tablet MDD 8 tabs ondansetron HCl 8 mg tablet 8 mg PO Q8H PRN 11/01/20 11/01/20 History prochlorperazine maleate 10 mg 10 mg PO Q6H PRN 11/01/20 11/01/20 History tablet Patient History Medical History Acute kidney injury 08/2020 > resolved Asymptomatic PVCs Chronic obstructive pulmonary disease Chronic osteoarthritis CKD (chronic kidney disease) stage 3, GFR 30-59 ml/min Clostridium difficile diarrhea 2018 Dyslipidemia Hepatic steatosis Hyperparathyroidism, primary Hypertension Impaired fasting glucose Lumbar spinal stenosis Migraine Hx Nocturnal hypoxia 2L/min NC HS Nontoxic multinodular goiter Venous insufficiency Surgical History History of appendectomy History of cholecystectomy History of colonoscopy History of ERCP ERCP with Biliary Stent Placement, EUS (08/23/20): Grade view 1, MAC#3, ETT 7.0 at [facility] History of hip replacement R/L History of knee replacement Right Family History Daughter Family history of diabetes mellitus Other No pertinent family history Social History Smoking Status: Current every day smoker Tobacco Type: Cigarettes Age Started Using Tobacco: 18; packs per day: 0.5; Years Smoked: 55; Cigarettes Per Day: 5; Second Hand Exposure: Yes (SPOUSE SMOKES); Do You Dip or Chew Tobacco: No; Hx Alcohol Use: No Hx Substance Use: No Preferred Language: Lithuanian Communication Ability: Effective Visual Impairment: No Limitations Cleaner Furniture Required: No Beliefs That Will Affect Care: None marital status: Current Living Situation: Spouse current occupational status: retired 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 Feels Safe at Home: Yes Safety Concerns: Feels Safe At This Time Seatbelt Use: always Sunscreen Use: Yes Assistive Devices: Oxygen - Continuous Review of Systems Review of Systems: [place] Symptom Assessment Scale Pain 1/3 Dyspnea 1/3 Fatigue 2/3 Nausea 0/3 Drowsiness 0/3 Anorexia 1/3 improved Physical Exam Constitutional: + ill appearing; no acute distress ENMT: Mouth: + dry oral mucous membranes Respiratory: normal respiratory effort; no labored breathing (at rest) Cardiovascular: Rate/Rhythm: regular rate and regular rhythm Gastrointestinal (Abdomen): tender Musculoskeletal: Extremities: extremities normal to inspection Neurologic: awake; not confused Psychiatric: Affect: euthymic affect Results & Data ([facility]) Vital Signs (Past 12 Hours) Vital Signs Temp Pulse Pulse Resp BP Pulse Ox Pulse Ox 11/07/20 11:16 95 11/07/20 11:13 98.6 F 75 18 112/62 94 11/07/20 08:22 97.5 F L 81 20 101/55 L 94 11/07/20 08:00 72 11/07/20 02:51 97.9 F 69 18 114/69 97 Pulse Ox Pulse Ox 11/07/20 11:16 93 86 L 11/07/20 11:13 11/07/20 08:22 11/07/20 08:00 11/07/20 02:51 Laboratory Results Watson catheter, dark yellow urine PG Care Time/CCT Total # of Minutes Spent Total Time Spent: 70 Total Time Spent with Patient: Total time spent is greater than 50% in coordination of care (as documented) at patient's floor/unit and/or counseling patient:goals of care, symptom management Coding Level of Care Code 85101 Initial Inpt Care Lvl 3 Diagnoses Chronic osteoarthritis M19.90 Palliative care encounter Z51.5 Pulmonary embolism, bilateral I26.99 Acute kidney injury N17.9 Pancreatic adenocarcinoma C25.9 Transaminitis R74.01 Chronic obstructive pulmonary disease J44.9 COPD type: unspecified COPD
[2020-11-07] MEDS ORDERED: DIPHENOXYLATE/ATROPINE 2.5/0.025MG TAB PO ONE (13:30)
--- NOTE | 2020-11-07 13:55 | Hospitalist Progress Note ---
Date of Service November 07, 2020 Assessment & Plan (1) Septic shock: Plan: Presented with weakness, SOB, and shortly after admission found to be febrile, severely hypotensive that was minimally responsive to crystalloid boluses of IV fluids. She had elevated LFTs and in an obstructive pattern and was noted to have possible blockage of her known biliary stent on imaging. She was transferred to the ICU on the morning of 11/02 and started on Levophed- weaned off vasopressors on evening of 11/05 after starting IV hydrocortisone -With acute kidney injury now resolved; acute respiratory failure with hypoxia persists but improved Lactate was normal, procalcitonin elevated at 3.48 and then improved Found to have ascending cholangitis secondary to biliary stent obstruction Growing Klebsiella in blood cultures Repeat BCxs with SLEEVE SETTER LOCKSTITCH-contaminant Is now status post urgent ERCP on 11/02 which revealed complete blockage of biliary stent with pus and stones and sludge-removal of stent and placement of new stent in CBD -Continue antibiotics for 14 days as per GI-continue ceftriaxone, however could convert to po abx for gram neg bacteremia once stabilizes and GI issues resolved -downgraded out of ICU on 11/06 -Follow urine culture-no growth Follow CBC, CMP, magnesium, phos in AM and replete as needed -continue midodrine 5mg po tid -continue IV hydrocortisone x 1 today then stop (2) Cholangitis: Plan: As above Continue antibiotics Started Actigall 300 mg p.o. twice daily to prevent future stones and sludge formation (3) Bacteremia: Plan: As above, growing pansensitive Klebsiella Continue ceftriaxone as above but could convert to po abx to finish out 14 days from time of neg cultures repeat cxs with contaminant SLEEVE SETTER LOCKSTITCH 1/2 repeat BCxs again on 11/06 NGTD (4) Acute kidney injury: Plan: Creatinine elevated 1.9 upon admission now down to 1.1 after volume resus citation and vasopressors Follow BMP Renally dose medications urine output is excellent, Watson catheter in place-keep for now (5) Congestive heart failure: Plan: Acute systolic CHF Echocardiogram showing biventricular failure Unclear etiology-sepsis versus chemotherapy, seems less likely to be ischemic Appreciate cardiology consultation Was given 1 dose of IV Lasix on the early intervention school psychologist of 11/03 for worsening hypoxia Has bilateral pleural effusions on chest x-ray Once blood pressure stabilized, restart home Toprol-XL and consider ARB addition to replace amlodipine -Hold home HCTZ and may need oral Lasix in the future once BPs improve (6) Pulmonary embolism, bilateral: Plan: CT angiography of chest demonstrating segmental and subsegmental pulmonary emboli and right lower lobe and left upper lobe. 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 Appreciate oncology consultation Holding off on further chemotherapy at this time-in fact, pt and her family all in agreement to not continue any further chemotherapy Agreeable to consultation with Palliative Medicine for further discussion of goals of care-does not want to do any more chemotherapy most likely due to severe debility and may shorten her lifespan (9) Hypomagnesemia: Plan: Replaced and resolved follow BMP (10) Dyslipidemia: Plan: Holding home atorvastatin but could restart on discharge if desired (11) Chronic obstructive pulmonary disease: Plan: Wears 2 L nasal cannula at nighttime Now on continuous supplemental O2 secondary to volume overload but is now weaned down to 2 L Albuterol and ipratropium as needed Continue home Anoro (12) Hypertension: Plan: With septic shock, holding home amlodipine, metoprolol Continue home aspirin (13) Hypokalemia: Plan: replace d and resolved Follow BMP (14) Anemia: Plan: Hemoglobin down but stable at 7.6, no active bleeding Likely secondary to chemotherapeutic effect Reticulocyte count is low Follow CBC and transfuse if hemoglobin less than 7.5 as per oncology recommendations (15) Thrombocytopenia: Plan: Platelet count omid at 85 and now continues to be improving, likely secondary to antineoplastic effect as well as could be from sepsis Follow CBC -Would need to hold anticoagulation and aspirin if platelets less than 50 -ICU team has ordered HIT panel which was negative (16) Acute and chronic respiratory failure: Plan: On continuous supplemental O2 as noted above secondary to volume overload and pleural effusions in the setting of chronic 2 L nasal cannula at night for COPD Diurese cautiously as needed (17) CKD (chronic kidney disease) stage 3, GFR 30-59 ml/min: Plan: CKD stage III With acute kidney injury as above -Avoid nephrotoxins -renally dose meds when appropriate -follow BMP (18) Diarrhea: Plan: profuse but somewhat improved today C. diff gene positive but toxin negative on 11/06 likely 2/2 abx and liquids diet restarted home probiotics Lomotil x 1 given today again if persists, can repeat C. diff -add Questran today (19) DVT prophylaxis: Plan: With acute PE as above, on therapeutic Lovenox Disposition continued stay, PCU PT/OT consults in place, OT recommends acute rehab or SNF, PT pending. Pt agreeable to rehab Admission and Anticipated Discharge Date Admission Date: November 02, 2020 Subjective Pt feeling very fatigued, still having diarrhea, some lower abd pains not sever e. Requesting Lomotil. No CP or SOB, is trying to use IS. Remains on O2. Was not able to stand up today with OT. Met with Palliative Care Tele with NSR, PVCs, rates 70s Review of Systems Review of Systems: All systems reviewed & are unremarkable except as noted in HPI & below Physical Exam Constitutional: WD/WN, vitals as above + ill appearing Eyes: + anicteric sclerae ENMT: external ear and nose normal, oropharynx normal Neck: trachea midline, no thyromegaly Respiratory: normal respiratory effort Auscultation: + diminished lung sounds (At the bases bilaterally) and + crackles (at bases); no wheezes Cardiovascular: RRR, no murmur, no edema Chest (Breasts): Chest: normal inspection of chest Gastrointestinal (Abdomen): Inspection/Auscultation: normal bowel sounds; abdomen not distended Percussion/Palpation: + abdomen tender (Mild in epigastric region without guarding or rebound tenderness) and abdomen soft Musculoskeletal: Extremities: extremities normal to inspection; no cyanosis and no clubbing Skin: no rashes, warm and dry Neurologic: moves all extremities and awake; no focal motor deficits Psychiatric: A+Ox3, euthymic affect Lymphatic: no lymphedema Results & Data Results & Data ([facility]) Vital Signs (Past 12 Hours) Vital Signs Temp Pulse Pulse Resp BP Pulse Ox Pulse Ox 11/07/20 11:16 95 11/07/20 11:13 37.0 C 75 18 112/62 94 11/07/20 08:22 36.4 C L 81 20 101/55 L 94 11/07/20 08:00 72 11/07/20 02:51 36.6 C 69 18 114/69 97 Pulse Ox Pulse Ox 11/07/20 11:16 93 86 L 11/07/20 11:13 11/07/20 08:22 11/07/20 08:00 11/07/20 02:51 Laboratory Results 11/07/20 11/07/20 Range/Units 05:03 05:03 WBC 9.06 (4.8-10.8) K/uL RBC 2.50 L (4.2-5.4) M/uL Hgb 7.6 L (12.0-16.0) g/dL Hct 23.0 L (37-47) % MCV 92.0 (80-100) fL MCH 30.4 (25-34) pg MCHC 33.0 (32-36) g/dL RDW Std Deviation 47.2 H (36.4-46.3) fL RDW Coeff of Deana 14.1 (11.5-14.5) % Plt Count 150 (130-400) K/uL MPV 9.3 (7.4-10.4) fL Immature Gran % (Auto) 4.7 % Neut % (Auto) 81.1 % Lymph % (Auto) 9.8 % [place] % (Auto) 4.3 % Eos % (Auto) 0.0 % Baso % (Auto) 0.1 % Neut # (Auto) 7.34 H (1.4-6.5) K/uL Lymph # (Auto) 0.89 L (1.2-3.4) K/uL [place] # (Auto) 0.39 (0.11-0.59) K/uL Eos # (Auto) 0.00 (0-0.5) K/uL Baso # (Auto) 0.01 (0-0.2) K/uL Immature Gran # (Auto) 0.43 H (0.00-0.02) K/uL Absolute Nucleated RBC 0.02 H (0-0) K/uL Nucleated RBC % (auto) 0.2 % Toxic Granulation Occasional RBC Morphology Unremarkable Sodium 140 (136-145) mmol/L Potassium 4.1 D (3.5-5.1) mmol/L Chloride 110 H (98-107) mmol/L Carbon Dioxide 27 (21-32) mmol/L Anion Gap 3.0 (3-11) BUN 22 H (7-18) mg/dl Creatinine 1.19 (0.6-1.2) mg/dl Est Cr Clr Drug Dosing 42.2 ml/min Est GFR ( Amer) 51.4 ml/min Est GFR (Non-Af Amer) 44.3 ml/min BUN/Creatinine Ratio 18.8 (10-20) Glucose 88 (70-99) mg/dl Calcium 7.7 L (8.5-10.1) mg/dl Phosphorus 3.7 D (2.5-4.9) mg/dl Magnesium 2.0 (1.8-2.4) mg/dl PG Care Time/CCT Total # of Minutes Spent Total Time Spent with Patient: Total time spent is greater than 50% in co ordination of care (as documented) at patient's floor/unit and/or counseling patient: Coding Level of Care Code 56318 Subseq Hosp Care Lvl 3 Diagnoses Septic shock A41.9; R65.21 Cholangitis K83.09 Bacteremia R78.81 Acute kidney injury N17.9 Congestive heart failure I50.9 Pulmonary embolism, bilateral I26.99 Aortic valve disorder I35.9 Pancreatic adenocarcinoma C25.9 Hypomagnesemia E83.42 Dyslipidemia E78.5 Chronic obstructive pulmonary disease J44.9 COPD type: unspecified COPD Hypertension I10 Hypertension type: unspecified Hypokalemia E87.6 Anemia D64.9 Thrombocytopenia D69.6 Acute and chronic respiratory failure J96.20 CKD (chronic kidney disease) stage 3, GFR 30-59 ml/min N18.30 Diarrhea R19.7 DVT prophylaxis Z29.9 (1) Chronic obstructive pulmonary disease COPD type: unspecified COPD Qualified Code(s): J44.9 - Chronic obstructive pulmonary disease, unspecified (2) Hypertension Hypertension type: unspecified Qualified Code(s): I10 - Essential (primary) hypertension
[2020-11-07] MEDS: cefTRIAXone SODIUM 2,000 MG in DEXTROSE 5% 50 ML IV SCH (14:30)
[2020-11-07] MEDS: CHOLESTYRAMINE LIGHT 4 GM PKT PO SCH ×2 (14:50→21:11)
[2020-11-07] MEDS: GABAPENTIN 300 MG CAP PO SCH (19:47)
[2020-11-07] MEDS: UMECLIDINIUM/VILANTEROL 62.5/25MCG 7 PUFFS/INHALER INH SCH (20:16)
[2020-11-07] MEDS: DIPHENOXYLATE/ATROPINE 2.5/0.025MG TAB PO PRN (20:54)
[2020-11-08] MEDS: DIPHENOXYLATE/ATROPINE 2.5/0.025MG TAB PO PRN ×2 (03:42→08:26)
[2020-11-08] MEDS: HYDROcodone/ACETAMINOPHEN 10/325 TAB PO PRN ×4 (03:42→22:49)
[2020-11-08 07:04] LABS: Nucleated RBC # (auto) 0.06 K/uL (0-0); Nucleated RBC % (auto) 0.5 %
[2020-11-08 07:06] LABS: Hematocrit (blood only) 24.1 % (37-47); Mean Corpuscular Hemoglobin 30.5 pg (25-34); Mean Corpuscular Hgb Conc 33.2 g/dL (32-36); Mean Platelet Volume 8.8 fL (7.4-10.4); Platelet Count 280 K/uL (130-400); RDW Coefficient of Variation 14.3 % (11.5-14.5); RDW Standard Deviation 48.2 fL (36.4-46.3); Red Blood Count 2.62 M/uL (4.2-5.4); White Blood Count 11.71 K/uL (4.8-10.8)
[2020-11-08 07:33] LABS: Target Cells 1+
[2020-11-08 07:42] LABS: Albumin Globulin Ratio 0.6 (0.9-2); Albumin Level 1.9 gm/dl (3.4-5.0); BUN Creatinine Ratio 20.8 (10-20); Bilirubin,Total 0.5 mg/dl (0.2-1); Calcium 7.9 mg/dl (8.5-10.1); Est GFR (African American) 61.2 ml/min; Est GFR (Non-African American) 52.8 ml/min; Globulin 2.9 gm/dl (2.5-4.0); Magnesium 1.6 mg/dl (1.8-2.4); Phosphorus 2.6 mg/dl (2.5-4.9); Potassium 3.2 mmol/L (3.5-5.1); Total Protein 4.8 gm/dl (6.4-8.2)
[2020-11-08 07:45] LABS: ALC (manual) 1.76 K/uL (1.2-3.4); ANC (manual) 8.43 K/uL (1.4-6.5); Lymphocytes # (manual) 1.76 K/uL (1.2-3.4); Metamyelocytes # (manual) 0.35 K/uL (0-0); Monocytes # (manual) 0.35 K/uL (0.11-0.59); Myelocytes # (manual) 0.82 K/uL (0-0); Neutrophils # (manual) 8.43 K/uL (1.4-6.5)
[2020-11-08] MEDS: CHOLESTYRAMINE LIGHT 4 GM PKT PO SCH (08:25)
[2020-11-08] MEDS: ursodioL 300 MG CAP PO SCH ×2 (08:26→20:41)
[2020-11-08] MEDS: MIDODRINE HCL 2.5 MG TAB PO SCH ×3 (08:26→17:24)
[2020-11-08] MEDS: PANTOprazole 40 MG TAB PO SCH (08:27)
[2020-11-08] MEDS: SACCHAROMYCES BOULARDII 250 MG CAP PO SCH (08:27)
[2020-11-08] MEDS: ASCORBIC ACID 500 MG TAB PO SCH (08:27)
[2020-11-08] MEDS: ASPIRIN 81 MG ECTAB PO SCH (08:27)
[2020-11-08] MEDS: CHOLECALCIFEROL 1,000 UNITS 25 MCG TAB PO SCH (08:27)
[2020-11-08] MEDS: ENOXAPARIN 80 MG/0.8 ML SYR SQ SCH ×2 (08:28→20:42)
--- NOTE | 2020-11-08 10:55 | Hospitalist Progress Note ---
Date of Service November 08, 2020 Assessment & Plan (1) Septic shock: Plan: Presented with weakness, SOB, and shortly after admission found to be febrile, severely hypotensive that was minimally responsive to crystalloid boluses of IV fluids. She had elevated LFTs and in an obstructive pattern and was noted to have possible blockage of her known biliary stent on imaging. She was transferred to the ICU on the morning of 11/02 and started on Levophed- weaned off vasopressors on evening of 11/05 after starting IV hydrocortisone -With acute kidney injury now resolved; acute respiratory failure with hypoxia persists but improved Lactate was normal, procalcitonin elevated at 3.48 and then improved Found to have ascending cholangitis secondary to biliary stent obstruction Growing Klebsiella in blood cultures Repeat BCxs with EMPLOYMENT SERVICES DIRECTOR-contaminant Is now status post urgent ERCP on 11/02 which revealed complete blockage of biliary stent with pus and stones and sludge-removal of stent and placement of new stent in CBD -Continue antibiotics for 14 days as per GI-continue ceftriaxone, however could convert to po abx for gram neg bacteremia once stabilizes and GI issues resolved -downgraded out of ICU on 11/06, has remained stable -Follow urine culture-no growth WBC 11.7, Hb 8, -continue midodrine 5mg po tid (2) Cholangitis: Plan: As above Continue antibiotics, Ceftriaxone, 14 days total treatment Started Actigall 300 mg p.o. twice daily to prevent future stones and sludge formation (3) Bacteremia: Plan: As above, growing pansensitive Klebsiella Continue ceftriaxone as above but could convert to po abx to finish out 14 days from time of neg cultures repeat cxs with contaminant EMPLOYMENT SERVICES DIRECTOR 1/2 repeat BCxs again on 11/06 NGTD would consider negative blood cultures on 11/04 (4) Acute kidney injury: Plan: Creatinine elevated 1.9 upon admission now down to 1.0 after volume resuscitation and vasopressors Follow BMP daily Renally dose medications urine output is excellent, Watson catheter in place-keep for now but pull prior to discharge (5) Congestive heart failure: Plan: Acute systolic CHF Echocardiogram showing biventricular failure Unclear etiology-sepsis versus chemotherapy, seems less likely to be ischemic Appreciate cardiology consultation Was given 1 dose of IV Lasix on the immunopathologist of 11/03 for worsening hypoxia Has bilateral pleural effusions on chest x-ray Once blood pressure stabilized, restart home Toprol-XL and consider ARB addition to replace amlodipine BP still low normal on Midodrine 5mg TID (6) Pulmonary embolism, bilateral: Plan: CT angiography of chest demonstrating segmental and subsegmental pulmonary emboli and right lower lobe and left upper lobe. Continue Lovenox 80 mg SQ bid for therapeutic dosing Could transition to Xarelto on discharge (7) Aortic valve disorder: Plan: With large growth seen on aortic valve on echocardiogram, cardiology suspects possible fibroblastoma and less likely to be vegetation Blood cultures with Klebsiella which is not consistent with infective endocarditis Patient is too unstable to undergo LITO and would not manager change at this time as she is not able to undergo valve replacement if needed no further bacteremia no abx needed for this (8) Pancreatic adenocarcinoma: Plan: Patient reports she had her first chemotherapy last week, and was due for se cond chemotherapy on 11/02. Appreciate oncology consultation Holding off on further chemotherapy at this time-in fact, pt and her family all in agreement to not continue any further chemotherapy Agreeable to consultation with Palliative Medicine for further discussion of goals of care-does not want to do any more chemotherapy most likely due to severe debility and may shorten her lifespan (9) Hypomagnesemia: Plan: Replaced and resolved follow BMP (10) Dyslipidemia: Plan: Holding home atorvastatin but could restart on discharge if desired (11) Chronic obstructive pulmonary disease: Plan: Wears 2 L nasal cannula at nighttime Now on continuous supplemental O2 secondary to volume overload but is now weaned down to 2 L Albuterol and ipratropium as needed Continue home Anoro (12) Hypertension: Plan: With septic shock, holding home amlodipine, metoprolol Continue home aspirin (13) Hypokalemia: Plan: oral replacement ordered today, K is 3.1 (14) Anemia: Plan: Hemoglobin down but stable at 8, no active bleeding Likely secondary to chemotherapeutic effect Reticulocyte count is low Follow CBC and transfuse if hemoglobin less than 7.5 as per oncology recommendations (15) Thrombocytopenia: Plan: Platelet count omid at 85 and now continues to be improving, likely secondary to antineoplastic effect as well as could be from sepsis Follow CBC -Would need to hold anticoagulation and aspirin if platelets less than 50 -ICU team has ordered HIT panel which was negative (16) Acute and chronic respiratory failure: Plan: On continuous supplemental O2 as noted above secondary to volume overload and pleural effusions in the setting of chronic 2 L nasal cannula at night for COPD Diurese cautiously as needed (17) CKD (chronic kidney disease) stage 3, GFR 30-59 ml/min: Plan: CKD stage III With acute kidney injury as above, now resolved -Avoid nephrotoxins -renally dose meds when appropriate -follow BMP (18) Diarrhea: Plan: continues to be a problem could not drink Questran increase Lomotil to q4 PRN, add Colestid 5gm BID C. diff gene positive but toxin negative on 11/06 repeat C diff testing due to persistent diarrhea likely 2/2 abx and liquids diet restarted home probiotics (19) DVT prophylaxis: Plan: With acute PE as above, on therapeutic Lovenox Disposition continued stay, PCU PT/OT consults in place, OT recommends acute rehab or SNF, PT pending. Pt agreeable to rehab Admission and Anticipated Discharge Date Admission Date: November 02, 2020 Subjective patient doing better the past few days, no fever, no RUQ pain eating better, reviewed chart, had Klebsiella bacteremia from blocked biliary stent, now resolved discussed that she had one round of chemo, unsure she wants to continue as the first one was very intense she is open to going to rehab to get stronger social issues: she cares for her , no family nearby so that is on her mind reviewed labs discussed with Dr. Sal, she is helping to determine plan, goals of care discussions Review of Systems Review of Systems: All systems reviewed & are unremarkable except as noted in Subjective Constitutional: + weakness; no fever and no fatigue Respiratory: no cough and no dyspnea Cardiovascular: no chest pain and no edema Gastrointestinal: no abdominal pain, no nausea, no vomiting, no constipation and no diarrhea/loose stools Physical Exam Constitutional: WD/WN, vitals as above no acute distress Neck: trachea midline, no thyromegaly Respiratory: normal respiratory effort, lungs clear to auscultation Cardiovascular: RRR, no murmur, no edema Gastrointestinal (Abdomen): normal bowel sounds, soft, nontender, no hepatosplenomegaly Musculoskeletal: no cyanosis or clubbing, extremities motor strength 5/5 Skin: no rashes, warm and dry Neurologic: patellar DTR's 2+ bilat, sensation intact and PERRL, EOMI, accommodation nl, no face palsy, no dysarthria Psychiatric: A+Ox3, euthymic affect Results & Data Results & Data ([place]) Vital Signs (Past 12 Hours) Vital Signs Temp Pulse Resp BP Pulse Ox 11/08/20 08:23 36.8 C 80 16 113/59 L 94 11/08/20 03:33 36.6 C 81 18 121/66 94 Laboratory Results Laboratory Results - last 24 hr 11/08/20 11/08/20 06:39 06:39 WBC 11.71 H RBC 2.62 L Hgb 8.0 L Hct 24.1 L MCV 92.0 MCH 30.5 MCHC 33.2 RDW Std Deviation 48.2 H RDW Coeff of Deana 14.3 Plt Count 280 D MPV 8.8 Absolute Nucleated RBC 0.06 H Nucleated RBC % (auto) 0.5 Neutrophils % (Manual) 72.0 Lymphocytes % (Manual) 15.0 Monocytes % (Manual) 3.0 Metamyelocytes % (Man) 3.0 Myelocytes % (Man) 7.0 Neutrophils # (Manual) 8.43 H Total Absolute Neuts 8.43 H Lymphocytes # (Manual) 1.76 Total Abs Lymphocytes 1.76 Monocytes # (Manual) 0.35 Metamyelocytes # (Man) 0.35 H Myelocytes # (Manual) 0.82 H Target Cells 1+ Sodium 142 Potassium 3.2 L D Chloride 109 H Carbon Dioxide 25 Anion Gap 7.0 BUN 21 H Creatinine 1.03 Est Cr Clr Drug Dosing 49.0 Est GFR ( Amer) 61.2 Est GFR (Non-Af Amer) 52.8 BUN/Creatinine Ratio 20.8 H Glucose 70 Calcium 7.9 L Phosphorus 2.6 D Magnesium 1.6 L Total Bilirubin 0.5 AST 184 H ALT 83 H Alkaline Phosphatase 227 H Total Protein 4.8 L Albumin 1.9 L Globulin 2.9 Albumin/Globulin Ratio 0.6 L Medications Administered Current Inpatient Medications Hydrocodone Bitart/Acetaminophen (Hydrocodone/Acetaminophen 10/325 Tab) 2 tab PO Q6H PRN PRN Reason: Pain Stop: 11/16/20 03:06 Last Admin: 11/08/20 10:14 Dose: 2 tab Documented by: Ascorbic Acid (Ascorbic Acid 500 Mg Tab) 1,000 mg PO QAM [facility] Stop: 12/02/20 08:59 Last Admin: 11/08/20 08:27 Dose: 1,000 mg Documented by: Aspirin (Aspirin 81 Mg Ectab) 81 mg PO Q48H [facility] Stop: 12/02/20 08:59 Last Admin: 11/08/20 08:27 Dose: 81 mg Documented by: Atorvastatin Calcium (Atorvastatin 20 Mg Tab) 20 mg PO HS [facility] Stop: 12/02/20 20:59 Last Admin: 11/02/20 21:28 Dose: Not Given Documented by: Cholestyramine Resin (Cholestyramine Light 4 Gm Pkt) 4 gm PO BID@1000,2200 [facility] Stop: 12/07/20 14:09 Last Admin: 11/08/20 08:25 Dose: Not Given Documented by: Nystatin 30 ml/ Dexamethasone 3.75 mg/ Diphenhydramine HCl 300 mg/ Sucrose 45 ml/Microcrystalline Cellulose 45 ml/ BARCODE IDENTIFIER 1 ea 0 ml PO Q4H PRN PRN Reason: Thrush Stop: 12/03/20 11:59 Last Admin: 11/05/20 08:29 Dose: 5 ml Documented by: Diphenoxylate HCl/Atropine (Diphenoxylate/Atropine 2.5/0.025mg Tab) 1 tab PO Q6H PRN PRN Reason: Diarrhea Stop: 12/07/20 20:14 Last Admin: 11/08/20 08:26 Dose: 1 tab Documented by: Enoxaparin Sodium (Enoxaparin 80 Mg/0.8 Ml Syr) 80 mg SQ BID [facility] Stop: 12/05/20 20:59 Last Admin: 11/08/20 08:28 Dose: 80 mg Documented by: Gabapentin (Gabapentin 300 Mg Cap) 300 mg PO [facility] Stop: 12/02/20 20:59 Last Admin: 11/07/20 19:47 Dose: 300 mg Documented by: Ceftriaxone Sodium 2,000 mg/ (Dextrose) 70 mls @ 100 mls/hr IV Q24H [facility]; Protocol Stop: 11/18/20 23:59 Last Infusion: 11/07/20 15:12 Dose: Infused Documented by: Magnesium Sulfate/Dextrose (Magnesium Sulfate / D5w) 1 gm in 100 mls @ 50 mls/hr IV Q2H [facility] Stop: 11/08/20 12:52 Ipratropium [place] (Ipratropium [place] Neb Soln 0.02% 2.5 Ml Vial) 0.5 mg INH Q4R PRN PRN Reason: Dyspnea Stop: 12/02/20 11:25 Midodrine (Midodrine Hcl 2.5 Mg Tab) 5 mg PO TID@0800,1200,1700 [facility] Stop: 12/05/20 16:59 Last Admin: 11/08/20 08:26 Dose: 5 mg Documented by: Ondansetron HCl (Ondansetron 4 Mg Od Tab) 8 mg PO Q8H PRN PRN Reason: NAUSEA/VOMITING Ondansetron HCl (Ondansetron Inj 2 Mg/Ml 2 Ml Vial) 4 mg IV Q6H PRN PRN Reason: Nausea Stop: 12/02/20 03:06 Pantoprazole Sodium (Pantoprazole 40 Mg Tab) 40 mg PO QAM [facility] Stop: 12/02/20 08:59 Last Admin: 11/08/20 08:27 Dose: 40 mg Documented by: Potassium Chloride (Potassium Chloride Crtab 20 Meq Tabcr) 20 meq PO BID [facility] Stop: 12/08/20 10:59 Prochlorperazine (Prochlorperazine Maleate 10 Mg Tab) 10 mg PO Q6H PRN PRN Reason: NAUSEA/VOMITING Stop: 12/02/20 03:06 Last Admin: 11/07/20 16:30 Dose: 10 mg Documented by: Saccharomyces Boulardii (Saccharomyces Boulardii 250 Mg Cap) 250 mg PO DAILY [facility] Stop: 12/06/20 14:59 Last Admin: 11/08/20 08:27 Dose: 250 mg Documented by: Umeclidinium/Vilanterol (Umeclidinium/Vilanterol 62.5/25mcg 7 Puffs/Inhaler) 1 puffs INH HS [facility] Stop: 12/02/20 20:59 Last Admin: 11/07/20 20:16 Dose: 1 puffs Documented by: Ursodiol (Ursodiol 300 Mg Cap) 300 mg PO BID [facility] Stop: 12/03/20 08:59 Last Admin: 11/08/20 08:26 Dose: 300 mg Documented by: Vitamin D (Cholecalciferol 1,000 Units 25 Mcg Tab) 1,000 units PO QAM [facility] Stop: 12/02/20 08:59 Last Admin: 11/08/20 08:27 Dose: 1,000 units Documented by: PG Care Time/CCT Total # of Minutes Spent Total Time Spent with Patient: Total time spent is greater than 50% in coordination of care (as documented) at patient's floor/unit and/or counseling patient: Coding Level of Care Code 33039 Subseq Hosp Care Lvl 3 Diagnoses Septic shock A41.9; R65.21 Cholangitis K83.09 Bacteremia R78.81 Acute kidney injury N17.9 Congestive heart failure I50.9 Pulmonary embolism, bilateral I26.99 Aortic valve disorder I35.9 Pancreatic adenocarcinoma C25.9 Hypomagnesemia E83.42 Dyslipidemia E78.5 Chronic obstructive pulmonary disease J44.9 COPD type: unspecified COPD Hypertension I10 Hypertension type: unspecified Hypokalemia E87.6 Anemia D64.9 Thrombocytopenia D69.6 Acute and chronic respiratory failure J96.20 CKD (chronic kidney disease) stage 3, GFR 30-59 ml/min N18.30 Diarrhea R19.7 DVT prophylaxis Z29.9 (1) Chronic obstructive pulmonary disease COPD type: unspecified COPD Qualified Code(s): J44.9 - Chronic obstructive pulmonary disease, unspecified (2) Hypertension Hypertension type: unspecified Qualified Code(s): I10 - Essential (primary) hypertension
[2020-11-08] MEDS ORDERED: DIPHENOXYLATE/ATROPINE 2.5/0.025MG TAB PO PRN (11:16)
[2020-11-08] MEDS: MAGNESIUM SULFATE / D5W 1 GM/100 ML BAG IV SCH ×2 (11:43→12:44)
[2020-11-08] MEDS: POTASSIUM CHLORIDE CRTAB 20 MEQ TABCR PO SCH ×2 (11:43→20:41)
[2020-11-08] MEDS: cefTRIAXone SODIUM 2,000 MG in DEXTROSE 5% 50 ML IV SCH (14:01)
--- NOTE | 2020-11-08 15:01 | Palliative Care Progress Note ---
Date of Service November 08, 2020 Assessment & Plan (1) Palliative care encounter: Plan: I talked more with Dora today about her goals of care. She recognizes that in her current state she would not be a candidate for chemotherapy and is concerned that she may not improve to the point of being able to do therapy. She was not able to work with PT today and was only able to sit on the edge of the bed yesterday. We talked about how she would manage at home as she is also helping to care for her who is not well. We discussed hospice care and she has considered this if she were not able to resume chemotherapy. I am concerned that she would need a higher level of care than could be managed at home. She is also concerned that her does not understand the significance of her illness. I spoke with him on the phone. He tells me that he is hoping to hear good news and asks when she will be able to come home. We talked about her needing SNF placement for rehab at a minimum given her current state. I also talked with him about her multiple medical problems and concern that she will not recover to her prior state of health. We will continue to follow and communicate with him to assist with planning for her care. Dora has excellent support from her daughters who have a more realistic sense of her prognosis. She did ask me to call her daughter, Yumi, to discuss the plan of care with her. Unfortunately, I was not able to reach Yumi. (2) Pulmonary embolism, bilateral: (3) Congestive heart failure: (4) Cholangitis: (5) Pancreatic adenocarcinoma: (6) Chronic osteoarthritis: Admission and Anticipated Discharge Date Admission Date: November 02, 2020 Subjective Dora had difficult night last night with diarrhea and nausea/vomiting. She is feeling very tired today. She is grimacing with movement in the bed and complains of soreness in her buttocks. She has not had anything to eat so far today. Review of Systems Review of Systems: [place] Symptom Assessment Scale Pain 1/3 Dyspnea 0/3 Anxiety 1/3 Fatigue 2/3 Nausea 1/3 Anorexia 1/3 Drowsiness 0/3 Palliative Performance Score 30% Physical Exam Constitutional: + ill appearing; + uncomfortable Respiratory: normal respiratory effort; no labored breathing Cardiovascular: Rate/Rhythm: regular rate and regular rhythm Neurologic: awake; no focal motor deficits and not confused Psychiatric: Orientation: oriented x 3 Results & Data ([facility]) Vital Signs (Past 12 Hours) Vital Signs Temp Pulse Pulse Resp BP Pulse Ox 11/08/20 12:00 98.1 F 79 18 105/65 96 11/08/20 08:23 98.2 F 80 16 113/59 L 94 11/08/20 03:33 97.9 F 81 18 121/66 94 PG Care Time/CCT Total # of Minutes Spent Total Time Spent: 45 Total Time Spent with Patient: Total time spent is greater than 50% in c oordination of care (as documented) at patient's floor/unit and/or counseling patient:hospice, goals of care Coding Level of Care Code 89794 Subseq Hosp Care Lvl 3 Diagnoses Palliative care encounter Z51.5 Pulmonary embolism, bilateral I26.99 Congestive heart failure I50.9 Cholangitis K83.09 Pancreatic adenocarcinoma C25.9 Chronic osteoarthritis M19.90
[2020-11-08] MEDS: GABAPENTIN 300 MG CAP PO SCH (20:41)
[2020-11-08] MEDS: UMECLIDINIUM/VILANTEROL 62.5/25MCG 7 PUFFS/INHALER INH SCH (20:42)
[2020-11-08] MEDS ORDERED: HYDROmorphone INJ 0.5 MG/0.5 ML SYR IV STA (20:46)
[2020-11-08] MEDS: COLESTIPOL HCL 1 GM TAB PO SCH (22:50)
--- NOTE | 2020-11-08 22:52 | Communication Note ---
Date of Service: November 08, 2020 Called to bedside by nursing staff for patient complaint of worsening left hip pain. Previously had been relatively well controlled on [place] 5 mg as needed, however over the last several hours has noticed that this pain has become intolerable. Does have a known history of pancreatic adenocarcinoma, therefore is concerned about the potential metastasis. Discussed that visualization of metastasis to bone would be difficult at this point in time, however can look at a x-ray of her hip to see if there would be any signs of change that could be causing his pain. Trialed 0.5 mg of Dilaudid with no improvement, following x- ray retrialed 1 mg Dilaudid with again no improvement. Discussed with patient, that x-rays did not seem to demonstrate any acute bony concerns, but did demonstrate signs of gaseous distention of her intestines that could be causing some of her pain. Discussed need for waiting until radiology is finalized to be doing these images, for clear delineation of no potential met metastatic processes. However can trial addressing the distention component through holding of the Lomotil and start of senna. Discussed that despite the discomfort patient was having over previous days with some looser stools use of Lomotil in addition to the narcotics can further lead to an ileus type picture. Resident Activity Tracking Resident Involvement: Resident Care Provided Care Provided: Adult [facility]
[2020-11-09] MEDS ORDERED: HYDROmorphone INJ 1 MG/ML SYRINGE IV STA ×2 (00:33→09:21)
[2020-11-09] MEDS ORDERED: DOCUSATE SODIUM/SENNA 50/8.6MG TAB PO ONE (01:35)
[2020-11-09] MEDS: HYDROcodone/ACETAMINOPHEN 10/325 TAB PO PRN ×3 (05:10→22:04)
--- NOTE | 2020-11-09 07:50 | XRay Report ---
SINGLE VIEW PELVIS; 2 VIEWS RIGHT HIP; 2 VIEWS LEFT HIP CLINICAL HISTORY: Metastatic survey. FINDINGS: An AP view of the pelvis with AP and frog-leg views of the right and left hips are correlat ed with pelvic CT dated 11/01/2020. The skeletal structures are osteopenic. A bipolar right hip arthro plasty and a unipolar left hip arthroplasty are in near-anatomic alignment. No periprosthetic lucency is identified. No acute fracture is seen involving the hips or pelvis. Advanced lumbosacral spondylo sis is partially imaged. There is no radiographic evidence of destructive bone lesion. Mild sclerotic change is noted in the sacroiliac joints. A common bile duct stent is partially imaged. A rectal tem perature probe is in place. There is no evidence of bowel obstruction. Atherosclerotic calcification is seen in the femoral arteries. IMPRESSION: 1. No acute bony abnormality is identified involving the hips or pelvis. 2. There is no radiographic evidence of destructive bone lesion. This was better assessed on the pelv ic CT performed 7 days previously. 3. Bilateral hip arthroplasties are in place. Electronically signed by: Rajesh Gonzalez M.D. 11/09/2020 7:49 AM
[2020-11-09] MEDS: COLESTIPOL HCL 1 GM TAB PO SCH ×2 (08:47→22:08)
[2020-11-09] MEDS: PANTOprazole 40 MG TAB PO SCH (08:47)
[2020-11-09] MEDS: POTASSIUM CHLORIDE CRTAB 20 MEQ TABCR PO SCH ×2 (08:48→22:08)
[2020-11-09] MEDS: MIDODRINE HCL 2.5 MG TAB PO SCH ×3 (08:48→16:55)
[2020-11-09] MEDS: ursodioL 300 MG CAP PO SCH ×2 (08:48→22:08)
[2020-11-09] MEDS: ASCORBIC ACID 500 MG TAB PO SCH (08:48)
[2020-11-09] MEDS: ENOXAPARIN 80 MG/0.8 ML SYR SQ SCH ×2 (08:49→22:08)
[2020-11-09] MEDS: SACCHAROMYCES BOULARDII 250 MG CAP PO SCH (08:49)
[2020-11-09] MEDS: CHOLECALCIFEROL 1,000 UNITS 25 MCG TAB PO SCH (08:49)
[2020-11-09] MEDS ORDERED: HYDROmorphone INJ 0.5 MG/0.5 ML SYR IV PRN (11:39)
--- NOTE | 2020-11-09 11:45 | Palliative Care Progress Note ---
Date of Service November 09, 2020 Assessment & Plan (1) Palliative care encounter: Plan: In talking with nursing, patient is having 10/10 constant left hip pain. She has utilized a total of 2.5 mg of IV Dilaudid over past 24 hours as three one time doses. See below for more pain details. 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 She lives in [place] and visited last week, but is considering returning if necessary. They have concerns whether this pain is cancer related or not. Discussed that we will be obtaining an MRI for further diagnostics that may help with decision making. Dora does live at home with her , Jose. Emma had questions about hospice care. She mentioned that this was discussed yesterday. If she decides not to pursue aggressive treatment, including chemotherapy or a Whipple's, she may consider this. Ultimately, our goal for today is to have better pain control. Further goals of care conversation to follow. Dora has excellent support from her daughters who have a more realistic sense of her prognosis. Emma stated that she would be in touch with Yumi today. Palliative Medicine will follow. (2) Cholangitis: Plan: Resolved with CBD placement on 11/02. Some nausea today. Has Zofran IV ordered. (3) Pancreatic adenocarcinoma: Plan: Received one dose of chemotherapy. Pt decided to not pursue second dose due to debilitating effects. Apparently, a whipples procedure was discussed at [place] at diagnosis. CT abdomen and pelvis performed one week ago, no metastasis noted. Will obtain MRI today due to progressive and persistent left hip pain. (4) Left hip pain: Plan: In talking with nursing, patient is having 10/10 constant left hip pain. She has utilized a total of 2.5 mg of IV Dilaudid over past 24 hours as three one time doses. She reports relief with Dilaudid. She also has Norco10/325 2 tab PO q6 PRN, which she says is less helpful for her pain. On exam, patient left hip tender to touch. Some CVA tenderness on left side as referred pain. No sciatic or numbness of tingling noted. No vomiting/nausea/diarrhea. Pt does have furrowed brow and grimacing during exam. Will start Dilaudid 1 mg IV Q4 PRN and continue to assess effectiveness. Lidoderm patch ordered. She also does have Gabapentin 300 mg PO QHS for adjuvant therapy. Creatinine/GFR 1.03/52.8 (5) Anxiety: Plan: Historically, patient does have some anxiety. Discussed anxiolytics as this could be exacerbating the pain. She has never taken an anxiolytic before, but was receptive to having one PRN. Ativan 0.5 mg IV Q 8 PRN ordered. Admission and Anticipated Discharge Date Admission Date: November 02, 2020 Subjective Dora continuous to have increased pain in her left hip. She rates it 10/10. She does have grimacing during our conversation. Her left hip is tender to touch with some referred pain to her left CVA area. CT A/P was done 8 days ago, no metastasis seen. X-ray done yesterday was negative. MRI may be helpful for further diagnostic purposes. Pt with normal creatinine and GFR. Pt daughter, Emma, on the phone. Updated and further discussion held. See A/P for further details. Review of Systems Review of Systems: [place] Symptom Assessment Scale Pain 2/3 Dyspnea 0/3 Anxiety 1/3 Fatigue 2/3 Nausea 1/3 Anorexia 0/3 Drowsiness 0/3 Palliative Performance Score 30% Physical Exam Constitutional: + acute distress and + ill appearing; + uncomfortable ENMT: Mouth: + dry oral mucous membranes Respiratory: normal respiratory effort; no labored breathing Cardiovascular: Rate/Rhythm: regular rate and regular rhythm Musculoskeletal: Extremities: extremities normal to inspection left hip tender to palpation Neurologic: awake; no focal motor deficits and not confused Psychiatric: Orientation: oriented x 3 Affect: euthymic affect Results & Data ([facility]) Vital Signs (Past 12 Hours) Vital Signs Temp Pulse Pulse Resp BP Pulse Ox 11/09/20 07:41 36.3 C L 76 18 127/69 96 11/09/20 07:00 78 11/09/20 03:57 36.8 C 74 20 134/67 97 11/08/20 23:59 68 PG Care Time/CCT Total # of Minutes Spent Total Time Spent with Patient: Total time spent is greater than 50% in coord ination of care (as documented) at patient's floor/unit and/or counseling patient: 45 minutes with > 50% of that time spent assessing the patient, discussing goals of care and symptom management with patient and daughter, ordering appropriate symptom management medications and collaborating with IDT Coding Level of Care Code 40669 Prolonged Care (int'l) Diagnoses Palliative care encounter Z51.5 Cholangitis K83.09 Pancreatic adenocarcinoma C25.9 Left hip pain M25.552 Anxiety F41.9 Time Spent (min) 45
[2020-11-09] MEDS ORDERED: HYDROmorphone INJ 1 MG/ML SYRINGE IV PRN ×2 (12:39→13:04)
[2020-11-09] MEDS: LIDOCAINE 5% 1 PATCH TD SCH (12:52)
[2020-11-09] MEDS: HYDROmorphone INJ 1 MG/ML SYRINGE IV PRN ×2 (13:12→20:12)
[2020-11-09] MEDS: LORazepam 0.5 MG/1 ML VIAL IV PRN ×2 (13:36→22:04)
[2020-11-09] MEDS: cefTRIAXone SODIUM 2,000 MG in DEXTROSE 5% 50 ML IV SCH (13:42)
--- NOTE | 2020-11-09 20:23 | Hospitalist Progress Note ---
Date of Service November 09, 2020 Assessment & Plan (1) Abdominal pain: Plan: new issue, LLQ and suprapubic, into left hip relief with Dilaudid IV, had a liquid BM this morning, none since will check CT abd/pelvis to look for any new acute issue (2) Septic shock: Plan: Presented with weakness, SOB, and shortly after admission found to be febrile, severely hypotensive that was minimally responsive to crystalloid boluses of IV fluids. She had elevated LFTs and in an obstructive pattern and was noted to have possible blockage of her known biliary stent on imaging. She was transferred to the ICU on the morning of 11/02 and started on Levophed- weaned off vasopressors on evening of 11/05 after starting IV hydrocortisone -With acute kidney injury now resolved; acute respiratory failure with hypoxia persists but improved Lactate was normal, procalcitonin elevated at 3.48 and then improved Found to have ascending cholangitis secondary to biliary stent obstruction Growing Klebsiella in blood cultures Repeat BCxs with CONSTRUCTION TECH[employer]Y INSTRUCTOR-contaminant Is now status post urgent ERCP on 11/02 which revealed complete blockage of biliary stent with pus and stones and sludge-removal of stent and placement of new stent in CBD -Continue antibiotics for 14 days as per GI-continue ceftriaxone, however could convert to po abx for gram neg bacteremia once stabilizes and GI issues resolved -downgraded out of ICU on 11/06, has remained stable -Follow urine culture-no growth WBC 11.7, Hb 8, -continue midodrine 5mg po tid (3) Cholangitis: Plan: As above Continue antibiotics, Ceftriaxone, 14 days total treatment Started Actigall 300 mg p.o. twice daily to prevent future stones and sludge formation (4) Bacteremia: Plan: As above, growing pansensitive Klebsiella Continue ceftriaxone as above but could convert to po abx to finish out 14 days from time of neg cultures repeat cxs with contaminant CONSTRUCTION TECH[employer]Y INSTRUCTOR 1/2 repeat BCxs again on 11/06 NGTD would consider negative blood cultures on 11/04, last day would be 11/18 (5) Acute kidney injury: Plan: Creatinine elevated 1.9 upon admission now down to 1.0 after volume resuscitation and vasopressors Follow BMP periodically Renally dose medications urine output is excellent, Watson catheter in place-keep for now but pull prior to discharge (6) Congestive heart failure: Plan: Acute systolic CHF Echocardiogram showing biventricular failure Unclear etiology-sepsis versus chemotherapy, seems less likely to be ischemic Appreciate cardiology consultation Was given 1 dose of IV Lasix on the global director air and climate change of 11/03 for worsening hypoxia Has bilateral pleural effusions on chest x-ray Once blood pressure stabilized, restart home Toprol-XL and consider ARB addition to replace amlodipine BP still low normal on Midodrine 5mg TID (7) Pulmonary embolism, bilateral: Plan: CT angiography of chest demonstrating segmental and subsegmental pulmonary emboli and right lower lobe and left upper lobe. 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 Appreciate oncology consultation Holding off on further chemotherapy at this time-in fact, pt and her family all in agreement to not continue any further chemotherapy Agreeable to consultation with Palliative Medicine for further discussion of goals of care-does not want to do any more chemotherapy most likely due to severe debility and may shorten her lifespan (10) Hypomagnesemia: Plan: Replaced and resolved follow BMP (11) Dyslipidemia: Plan: Holding home atorvastatin but could restart on discharge if desired (12) Chronic obstructive pulmonary disease: Plan: Wears 2 L nasal cannula at nighttime Now on continuous supplemental O2 secondary to volume overload but is now weaned down to 2 L Albuterol and ipratropium as needed Continue home Anoro (13) Hypertension: Plan: With septic shock, holding home amlodipine, metoprolol Continue home aspirin (14) Hypokalemia: Plan: oral replacement ordered today, K is 3.1 (15) Anemia: Plan: Hemoglobin down but stable at 8, no active bleeding Likely secondary to chemotherapeutic effect Reticulocyte count is low Follow CBC and transfuse if hemoglobin less than 7.5 as per oncology recommendations (16) Thrombocytopenia: Plan: Platelet count omid at 85 and now continues to be improving, likely secondary to antineoplastic effect as well as could be from sepsis Follow CBC -Would need to hold anticoagulation and aspirin if platelets less than 50 -ICU team has ordered HIT panel which was negative (17) Acute and chronic respiratory failure: Plan: On continuous supplemental O2 as noted above secondary to volume overload and pleural effusions in the setting of chronic 2 L nasal cannula at night for COPD Diurese cautiously as needed breathing stable, no distress (18) CKD (chronic kidney disease) stage 3, GFR 30-59 ml/min: Plan: CKD stage III With acute kidney injury as above, now resolved -Avoid nephrotoxins -renally dose meds when appropriate -follow BMP (19) Diarrhea: Plan: better today continue Lomotil to q4 PRN, add Colestid 5gm BID C. diff gene positive but toxin negative on 11/06 repeat C diff testing NEGATIVE again likely 2/2 abx and liquids diet restarted home probiotics check CT abd/pelvis today (20) DVT prophylaxis: Plan: With acute PE as above, on therapeutic Lovenox Disposition continued stay, PCU PT/OT consults in place, OT recommends acute rehab or SNF, PT pending. Pt agreeable to rehab Admission and Anticipated Discharge Date Admission Date: November 02, 2020 Subjective patient developed severe left lower quadrant, left hip pain last night, no inciting event, laying in bed had only one loose BM this morning, nothing since her appetite is very poor pain relieved with Dilaudid IV but she gets even more relief with Ativan, no Dilaudid needed since 1300 today she is sleeping a lot, very weak appreciate note from palliative care on my exam she was not really tender in the hip, log roll of left leg did not elicit any pain most pain on flexion of left leg and palpation LLQ no dyspnea, no chest pain, no fever Review of Systems Review of Systems: All systems reviewed & are unremarkable except as noted in Subjective Constitutional: + fatigue and + weakness; no fever Respiratory: no cough and no dyspnea Cardiovascular: no chest pain Gastrointestinal: + abdominal pain (LLQ), + early satiety and + diarrhea/loose stools; no nausea, no vomiting and no constipation Musculoskeletal: + joint pain (left hip, left pelvis) Physical Exam Constitutional: WD/WN, vitals as above no acute distress Neck: trachea midline, no thyromegaly Respiratory: normal respiratory effort, lungs clear to auscultation Cardiovascular: RRR, no murmur, no edema Gastrointestinal (Abdomen): Inspection/Auscultation: abdomen normal to inspection and normal bowel sounds; abdomen not distended Percussion/Palpation: + abdomen tender (LLQ and suprapubic ), abdomen soft and normal to percussion; no guarding and abdomen not rigid Musculoskeletal: no cyanosis or clubbing, extremities motor strength 5/5 (no pain on log rolling left leg, + pain with hip flexion) Skin: no rashes, warm and dry Neurologic: patellar DTR's 2+ bilat, sensation intact and PERRL, EOMI, accommodation nl, no face palsy, no dysarthria Psychiatric: A+Ox3, euthymic affect Results & Data Results & Data ([facility]) Vital Signs (Past 12 Hours) Vital Signs Temp Pulse Resp BP Pulse Ox 11/09/20 19:36 37.2 C 73 19 127/72 97 11/09/20 15:51 36.8 C 77 18 125/81 98 11/09/20 12:08 36.8 C 72 20 128/70 95 Laboratory Results Laboratory Results - last 24 hr 11/09/20 08:40 Stl C. diff Tox B Gene Negative Cdiff Gene Medications Administered Current Inpatient Medications Hydrocodone Bitart/Acetaminophen (Hydrocodone/Acetaminophen 10/325 Tab) 2 tab PO Q6H PRN PRN Reason: Pain Stop: 11/16/20 03:06 Last Admin: 11/09/20 11:19 Dose: 2 tab Documented by: Ascorbic Acid (Ascorbic Acid 500 Mg Tab) 1,000 mg PO QAM THOMAS Stop: 12/02/20 08:59 Last Admin: 11/09/20 08:48 Dose: 1,000 mg Documented by: Aspirin (Aspirin 81 Mg Ectab) 81 mg PO Q48H THOMAS Stop: 12/02/20 08:59 Last Admin: 11/08/20 08:27 Dose: 81 mg Documented by: Atorvastatin Calcium (Atorvastatin 20 Mg Tab) 20 mg PO HS THOMAS Stop: 12/02/20 20:59 Last Admin: 11/02/20 21:28 Dose: Not Given Documented by: Colestipol HCl (Colestipol Hcl 1 Gm Tab) 1 gm PO BID@1000,2200 THOMAS Stop: 12/08/20 21:59 Last Admin: 11/09/20 08:47 Dose: 1 gm Documented by: Nystatin 30 ml/ Dexamethasone 3.75 mg/ Diphenhydramine HCl 300 mg/ Sucrose 45 ml/Microcrystalline Cellulose 45 ml/ BARCODE IDENTIFIER 1 ea 0 ml PO Q4H PRN PRN Reason: Thrush Stop: 12/03/20 11:59 Last Admin: 11/05/20 08:29 Dose: 5 ml Documented by: Diphenoxylate HCl/Atropine (Diphenoxylate/Atropine 2.5/0.025mg Tab) 1 tab PO Q4H PRN PRN Reason: Diarrhea Stop: 12/07/20 20:14 Last Admin: 11/08/20 14:02 Dose: 1 tab Documented by: Enoxaparin Sodium (Enoxaparin 80 Mg/0.8 Ml Syr) 80 mg SQ BID THOMAS Stop: 12/05/20 20:59 Last Admin: 11/09/20 08:49 Dose: 80 mg Documented by: Gabapentin (Gabapentin 300 Mg Cap) 300 mg PO HS THOMAS Stop: 12/02/20 20:59 Last Admin: 11/08/20 20:41 Dose: 300 mg Documented by: Hydromorphone HCl (Hydromorphone Inj 1 Mg/Ml Syringe) 1 mg IV Q3H PRN PRN Reason: Pain Stop: 11/23/20 13:03 Last Admin: 11/09/20 20:12 Dose: 1 mg Documented by: Ceftriaxone Sodium 2,000 mg/ (Dextrose) 70 mls @ 100 mls/hr IV Q24H THOMAS; Protocol Stop: 11/18/20 23:59 Last Infusion: 11/09/20 14:35 Dose: Infused Documented by: Lorazepam (Ativan) 0.5 mg in 1 mls @ 0.5 mls/min IV Q8H PRN PRN Reason: Anxiety Stop: 12/09/20 13:03 Last Admin: 11/09/20 13:36 Dose: 0.5 mls/min Documented by: Ipratropium [place] (Ipratropium [place] Neb Soln 0.02% 2.5 Ml Vial) 0.5 mg INH Q4R PRN PRN Reason: Dyspnea Stop: 12/02/20 11:25 Lidocaine (Lidocaine 5% 1 Patch) 1 patch TD QAM THOMAS Stop: 12/09/20 11:44 Last Admin: 11/09/20 12:52 Dose: 1 patch Documented by: Midodrine (Midodrine Hcl 2.5 Mg Tab) 5 mg PO TID@0800,1200,1700 [facility] Stop: 12/05/20 16:59 Last Admin: 11/09/20 16:55 Dose: 5 mg Documented by: Miscellaneous (Remove Lidoderm Patch) 1 ea N/A DAILY@2100 [facility] Stop: 12/09/20 23:29 Ondansetron HCl (Ondansetron 4 Mg Od Tab) 8 mg PO Q8H PRN PRN Reason: NAUSEA/VOMITING Ondansetron HCl (Ondansetron Inj 2 Mg/Ml 2 Ml Vial) 4 mg IV Q6H PRN PRN Reason: Nausea Stop: 12/02/20 03:06 Last Admin: 11/09/20 13:12 Dose: 4 mg Documented by: Pantoprazole Sodium (Pantoprazole 40 Mg Tab) 40 mg PO QAM [facility] Stop: 12/02/20 08:59 Last Admin: 11/09/20 08:47 Dose: 40 mg Documented by: Potassium Chloride (Potassium Chloride Crtab 20 Meq Tabcr) 20 meq PO BID [facility] Stop: 12/08/20 10:59 Last Admin: 11/09/20 08:48 Dose: 20 meq Documented by: Prochlorperazine (Prochlorperazine Maleate 10 Mg Tab) 10 mg PO Q6H PRN PRN Reason: NAUSEA/VOMITING Stop: 12/02/20 03:06 Last Admin: 11/07/20 16:30 Dose: 10 mg Documented by: Saccharomyces Boulardii (Saccharomyces Boulardii 250 Mg Cap) 250 mg PO DAILY [facility] Stop: 12/06/20 14:59 Last Admin: 11/09/20 08:49 Dose: 250 mg Documented by: Umeclidinium/Vilanterol (Umeclidinium/Vilanterol 62.5/25mcg 7 Puffs/Inhaler) 1 puffs INH HS [facility] Stop: 12/02/20 20:59 Last Admin: 11/08/20 20:42 Dose: 1 puffs Documented by: Ursodiol (Ursodiol 300 Mg Cap) 300 mg PO BID [facility] Stop: 12/03/20 08:59 Last Admin: 11/09/20 08:48 Dose: 300 mg Documented by: Vitamin D (Cholecalciferol 1,000 Units 25 Mcg Tab) 1,000 units PO QAM THOMAS Stop: 12/02/20 08:59 Last Admin: 11/09/20 08:49 Dose: 1,000 units Documented by: PG Care Time/CCT Total # of Minutes Spent Total Time Spent with Patient: Total time spent is greater than 50% in coordination of care (as documented) at patient's floor/unit and/or counseling patient: Coding Level of Care Code 32888 Subseq Hosp Care Lvl 3 Diagnoses Septic shock A41.9; R65.21 Cholangitis K83.09 Bacteremia R78.81 Acute kidney injury N17.9 Congestive heart failure I50.9 Pulmonary embolism, bilateral I26.99 Aortic valve disorder I35.9 Pancreatic adenocarcinoma C25.9 Hypomagnesemia E83.42 Dyslipidemia E78.5 Chronic obstructive pulmonary disease J44.9 COPD type: unspecified COPD Hypertension I10 Hypertension type: unspecified Hypokalemia E87.6 Anemia D64.9 Thrombocytopenia D69.6 Acute and chronic respiratory failure J96.20 CKD (chronic kidney disease) stage 3, GFR 30-59 ml/min N18.30 Diarrhea R19.7 DVT prophylaxis Z29.9 Abdominal pain R10.9 (1) Chronic obstructive pulmonary disease COPD type: unspecified COPD Qualified Code(s): J44.9 - Chronic obstructive pulmonary disease, unspecified (2) Hypertension Hypertension type: unspecified Qualified Code(s): I10 - Essential (primary) hypertension
[2020-11-09] MEDS ORDERED: OPTIRAY 320 100ml IV ONE (21:11)
[2020-11-09] MEDS: UMECLIDINIUM/VILANTEROL 62.5/25MCG 7 PUFFS/INHALER INH SCH (22:08)
[2020-11-09] MEDS: GABAPENTIN 300 MG CAP PO SCH (22:09)
[2020-11-09 23:01] LABS: Hematocrit (blood only) 24.4 % (37-47)
[2020-11-10] MEDS: HYDROmorphone INJ 1 MG/ML SYRINGE IV PRN ×2 (01:40→06:26)
[2020-11-10] MEDS: LORazepam 0.5 MG/1 ML VIAL IV PRN ×2 (06:49→20:02)
[2020-11-10 07:32] LABS: Nucleated RBC # (auto) 0.05 K/uL (0-0); Nucleated RBC % (auto) 0.4 %
--- NOTE | 2020-11-10 07:33 | CT Scan Report ---
CT abd pelvis IV con only CLINICAL HISTORY: Left lower quadrant pain COMPARISON STUDY: November 01, 2020 TECHNIQUE: A dose lowering technique was utilized adhering to the principles of ALARA. CT DOSE: 846.13 mGy.cm FINDINGS: Lower chest: Stable moderate left pleural effusion associated with atelectasis of the left lower lobe . Interval development of moderate right pleural effusion associated with compressive atelectasis of the right lower lobe.. Liver: The contrast-enhanced liver is normal in size, contour, and attenuation. Previously seen centr al dilatation of the intrahepatic biliary ducts slightly improved however there is interval developme nt of pneumobilia. Common bile duct stent is in stable position.. Gallbladder: Is surgically absent. Spleen: Normal in size and attenuation. Pancreas: Redemonstration of slightly hypoattenuating lesion surrounding common bile duct stent which is unchanged since prior. Adrenal glands: Unremarkable. Kidneys: There is symmetric renal cortical enhancement. The kidneys are normal in size without hydron ephrosis. Pelvic viscera: Urinary bladder and pelvic organs are poorly seen due to beam hardening artifact from bilateral hip joints. Bowel: Loops of small bowel are nondilated. Transverse colon is within upper limits of normal for siz e and gas distended. Also loops of large bowel are fluid-filled which could be seen in diarrheal stat e. Peritoneum: There is no free intraperitoneal gas. Interval development of mild ascites. Vasculature: Abdominal aorta is normal in caliber, tortuous with extensive calcifications of its wall . Adenopathy: None. Skeletal structures: Osteopenia. Multilevel degenerative changes of the spine. Bilateral hip prosthet ic joints. Diffuse subcutaneous edema is seen. Interval asymmetrical enlargement of the left psoas muscle with focal area of decreased attenuation w ithin its anterior portion IMPRESSION: 1. Interval development of asymmetrical enlargement of the left psoas muscle with focal area of decr eased attenuation within its anterior portion. No evidence of gas collection is seen. Differential di agnosis include intramuscular hematoma versus developing abscess which is less likely due to absence of peripheral enhancement and gas collection. 2. Interval development of the moderate right pleural effusion and mild ascites. 3. Stable position of the common bile duct stent with interval mild improvement of central intrahepa tic biliary duct dilatation and development of pneumobilia. 4. Gas filled loops of transverse colon are within upper limits of normal which might be due to mild ileus. Fluid-filled large bowel could be seen in diarrheal state. Please correlate with clinical pre sentation. 5. Additional findings as above. ACT 112: Negative or not required by law. The above report was generated using voice recognition software. It may contain grammatical, syntax o r spelling errors. Electronically signed by: Maria Isabel Xiong DO 11/10/2020 7:32 AM
[2020-11-10 07:47] LABS: Hematocrit (blood only) 24.5 % (37-47); Hemoglobin 8.2 g/dL (12.0-16.0); Mean Corpuscular Hemoglobin 31.1 pg (25-34); Mean Corpuscular Hgb Conc 33.5 g/dL (32-36); Mean Corpuscular Volume 92.8 fL (80-100); Mean Platelet Volume 8.7 fL (7.4-10.4); Platelet Count 466 K/uL (130-400); RDW Coefficient of Variation 14.5 % (11.5-14.5); RDW Standard Deviation 48.6 fL (36.4-46.3); Red Blood Count 2.64 M/uL (4.2-5.4); White Blood Count 14.11 K/uL (4.8-10.8)
[2020-11-10 08:09] LABS: Albumin Globulin Ratio 0.7 (0.9-2); Albumin Level 2.1 gm/dl (3.4-5.0); BUN Creatinine Ratio 20.7 (10-20); Bilirubin,Total 0.6 mg/dl (0.2-1); Calcium 7.9 mg/dl (8.5-10.1); Creatinine Clr Calc Pharmacy 66.9 ml/min; Est GFR (African American) 89.7 ml/min; Est GFR (Non-African American) 77.4 ml/min; Magnesium 1.5 mg/dl (1.8-2.4); Potassium 4.1 mmol/L (3.5-5.1); Total Protein 5.1 gm/dl (6.4-8.2)
[2020-11-10] MEDS: POTASSIUM CHLORIDE CRTAB 20 MEQ TABCR PO SCH (08:17)
[2020-11-10] MEDS: ursodioL 300 MG CAP PO SCH ×2 (08:17→21:06)
[2020-11-10] MEDS: SACCHAROMYCES BOULARDII 250 MG CAP PO SCH (08:18)
[2020-11-10] MEDS: PANTOprazole 40 MG TAB PO SCH (08:18)
[2020-11-10] MEDS: CHOLECALCIFEROL 1,000 UNITS 25 MCG TAB PO SCH (08:18)
[2020-11-10] MEDS: LIDOCAINE 5% 1 PATCH TD SCH (08:19)
[2020-11-10] MEDS: ASCORBIC ACID 500 MG TAB PO SCH (08:19)
[2020-11-10] MEDS: MIDODRINE HCL 2.5 MG TAB PO SCH ×3 (08:19→17:02)
[2020-11-10] MEDS ORDERED: PIPERACILL/TAZOBAC CONSULT ACTIVE PRN (09:05)
--- NOTE | 2020-11-10 09:07 | Hospitalist Progress Note ---
Date of Service November 10, 2020 Assessment & Plan (1) Hemorrhagic shock: Plan: bleeding in psoas muscle on left, spontaneous, likely from anticoagulation dropped BP to 60's systolic, compounded by low volume from diarrhea and poor oral intake past two days brief response to NSS 1 liter bolus and started to transfuse 2 units of PRBC patient in a great deal of pain, suffering, cannot give strong narcotics without dropping BP further plan to transition to comfort measures (2) Psoas hematoma, left, secondary to anticoagulant therapy: Plan: spontaneous hematoma, was on Lovenox at therapeutic level severe pain that started on 11/09, CT abd/pelvis showed the hematoma in evening on 11/09 stopped Lovenox and aspirin once diagnosis made however, too much blood loss and pain comfort measures (3) Abdominal pain: Plan: new issue, LLQ and suprapubic, into left hip due to psoas hematoma Dilaudid IV for pain relief but it is causing lethargy, confusion and contributing to hypotension (4) Septic shock: Plan: Presented with weakness, SOB, and shortly after admission found to be febrile, severely hypotensive that was minimally responsive to crystalloid boluses of IV fluids. She had elevated LFTs and in an obstructive pattern and was noted to have possible blockage of her known biliary stent on imaging. She was transferred to the ICU on the morning of 11/02 and started on Levophed- weaned off vasopressors on evening of 11/05 after starting IV hydrocortisone -With acute kidney injury now resolved; acute respiratory failure with hypoxia persists but improved ascending cholangitis secondary to biliary stent obstruction Growing Klebsiella in blood cultures Repeat BCxs with BUFFING MACHINE OPERATOR SEMIAUTOMATIC-contaminant Is now status post urgent ERCP on 11/02 which revealed complete blockage of biliary stent with pus and stones and sludge-removal of stent and placement of new stent in CBD -plan to treat with Rocephin for 14 days as per GI- -downgraded out of ICU on 11/06, had remained stable until psoas hematoma on 11/09 and hypotension on 11/10 -Follow urine culture-no growth WBC up to 14k new blood cultures drawn this morning when wasn't clear if it was hematoma or abscess changed to Zosyn for anerobic coverage now will pursue comfort measures (5) Cholangitis: Plan: As above Ceftriaxone -- now Zosyn Started Actigall 300 mg p.o. twice daily to prevent future stones and sludge formation (6) Bacteremia: Plan: As above, growing pansensitive Klebsiella repeat cxs with contaminant BUFFING MACHINE OPERATOR SEMIAUTOMATIC 1/2 repeat BCxs again on 11/06 NGTD would consider negative blood cultures on 11/04, last day would be 11/18 currently on Zosyn (7) Acute kidney injury: Plan: Creatinine elevated 1.9 upon admission now down to 1.0 after volume resuscitation and vasopressors Follow BMP periodically Renally dose medications urine output is lower today with bleeding and hypotension (8) Congestive heart failure: Plan: Acute systolic CHF Echocardiogram showing biventricular failure Unclear etiology-sepsis versus chemotherapy, seems less likely to be ischemic Appreciate cardiology consultation Was given 1 dose of IV Lasix on the regrinder operator of 11/03 for worsening hypoxia Has bilateral pleural effusions on chest x-ray planned to give Lasix 20mg IV after PRBC transfusions (9) Pulmonary embolism, bilateral: Plan: CT angiography of chest demonstrating segmental and subsegmental pulmonary emboli and right lower lobe and left upper lobe. 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 Appreciate oncology consultation Holding off on further chemotherapy at this time-in fact, pt and her family all in agreement to not continue any further chemotherapy Agreeable to consultation with Palliative Medicine for further discussion of goals of care-does not want to do any more chemotherapy most likely due to severe debility and may shorten her lifespan her plan was SNF or home hospice now with hypotension, bleeding, severe pain will transition to comfort care (12) Hypomagnesemia: Plan: Replaced and resolved follow BMP (13) Dyslipidemia: Plan: Holding home atorvastatin but could restart on discharge if desired (14) Chronic obstructive pulmonary disease: Plan: Wears 2 L nasal cannula at nighttime Now on continuous supplemental O2 secondary to volume overload but is now weaned down to 3 L Albuterol and ipratropium as needed Continue home Anoro (15) Hypertension: Plan: holding BP meds with low BP (16) Hypokalemia: Plan: K stable (17) Anemia: Plan: Hemoglobin had been 8.2 now with acute blood loss anemia, hemorrhage from psoas muscle (18) Thrombocytopenia: Plan: Platelet count omid at 85 and now continues to be improving, likely secondary to antineoplastic effect as well as could be from sepsis (19) Acute and chronic respiratory failure: Plan: On continuous supplemental O2 as noted above secondary to volume overload and pleural effusions in the setting of chronic 2 L nasal cannula at night for COPD Diurese cautiously as needed breathing stable, no distress (20) CKD (chronic kidney disease) stage 3, GFR 30-59 ml/min: Plan: CKD stage III With acute kidney injury as above, now resolved -Avoid nephrotoxins -renally dose meds when appropriate -follow BMP (21) Diarrhea: Plan: two more loose stools today, making patient miserable continue Lomotil to q4 PRN, add Colestid 5gm BID C. diff gene positive but toxin negative on 11/06 repeat C diff testing NEGATIVE again likely 2/2 abx and liquids diet restarted home probiotics no changes in colon on CT a/p (22) DVT prophylaxis: Plan: stop Lovenox due to psoas hematoma Admission and Anticipated Discharge Date Admission Date: November 02, 2020 Subjective patient in more left lower quadrant pain today, left hip pain reviewed with her and her daughter that she likely has a left psoas hematoma based off CT WBC is 14k so we juan repeat blood cultures and changed to [place] daughter says that she does not respond to Diludid in the past, requested we try Hydrocodone that she takes at home she was able to get some Hydrocodone down early this afternoon, rested comfortably for a while discussed with palliative care, backed off the Ativan frequency and decreased the Dilaudid to 0.5mg IV later in the afternoon her blood pressure dropped to 60-80 systolic and she was having worsening pain stat H/H ordered with type and cross and 1 liter bolus of NSS ordered family at the bedside, discussed suspicion that she was bleeding, they agreed to IV fluids and blood patient was still in a great deal of pain in her left hip, LLQ H/H was down to 5.7 patient continued to drop her blood pressure and was in a great deal of pain difficult because giving strong narcotics could reduce BP further night resident discussed with family at start of his shift he notified me that family was electing to make her comfort measures Review of Systems Review of Systems: All systems reviewed & are unremarkable except as noted in Subjective Constitutional: + fatigue, + weakness and + anorexia; no fever Respiratory: no cough and no dyspnea Cardiovascular: no chest pain and no edema Gastrointestinal: + abdominal pain (LLQ, severe at times) and + diarrhea/loose stools; no nausea, no vomiting and no constipation Physical Exam Constitutional: + ill appearing, + altered mental status, + frail appearing, + in distress (from pain) and + lethargic Neck: trachea midline, no thyromegaly Respiratory: normal respiratory effort, lungs clear to auscultation Cardiovascular: Rate/Rhythm: regular rate and regular rhythm Heart Sounds: normal S1 and normal S2; no murmur Vessels: no JVD and + abnormal peripheral pulses (weak) Gastrointestinal (Abdomen): normal bowel sounds, soft, nontender, no hepatosplenomegaly Inspection/Auscultation: abdomen normal to inspection and normal bowel sounds; abdomen not distended Percussion/Palpation: + abdomen tender (LLQ and suprapubic ), abdomen soft and normal to percussion; no guarding and abdomen not rigid Musculoskeletal: no cyanosis or clubbing, extremities motor strength 5/5 (no pain on log rolling left leg, + pain with hip flexion) Skin: no rashes, warm and dry Neurologic: patellar DTR's 2+ bilat, sensation intact and PERRL, EOMI, accommodation nl, no face palsy, no dysarthria Psychiatric: Orientation: oriented x 3; + not alert Results & Data Results & Data ([facility]) Vital Signs (Past 12 Hours) Vital Signs Temp Pulse Resp BP Pulse Ox 11/10/20 07:17 36.5 C 80 19 120/69 90 11/10/20 04:00 36.8 C 89 18 122/63 93 11/09/20 23:12 36.7 C 80 20 122/80 92 Laboratory Results Laboratory Results - last 24 hr 11/09/20 11/09/20 11/10/20 08:40 22:45 06:45 WBC 14.11 H RBC 2.64 L Hgb 8.0 L 8.2 L Hct 24.4 L 24.5 L MCV 92.8 MCH 31.1 MCHC 33.5 RDW Std Deviation 48.6 H RDW Coeff of Deana 14.5 Plt Count 466 H MPV 8.7 Absolute Nucleated RBC 0.05 H Nucleated RBC % (auto) 0.4 Sodium Potassium Chloride Carbon Dioxide Anion Gap BUN Creatinine Est Cr Clr Drug Dosing Est GFR ( Amer) Est GFR (Non-Af Amer) BUN/Creatinine Ratio Glucose Calcium Magnesium Total Bilirubin AST ALT Alkaline Phosphatase Total Protein Albumin Globulin Albumin/Globulin Ratio Stl C. diff Tox B Gene Negative Cdiff Gene 11/10/20 06:45 WBC RBC Hgb Hct MCV MCH MCHC RDW Std Deviation RDW Coeff of Deana Plt Count MPV Absolute Nucleated RBC Nucleated RBC % (auto) Sodium 140 Potassium 4.1 Chloride 109 H Carbon Dioxide 27 Anion Gap 4.0 BUN 15 Creatinine 0.75 Est Cr Clr Drug Dosing 66.9 Est GFR ( Amer) 89.7 Est GFR (Non-Af Amer) 77.4 BUN/Creatinine Ratio 20.7 H Glucose 101 H Calcium 7.9 L Magnesium 1.5 L Total Bilirubin 0.6 AST 58 H ALT 47 Alkaline Phosphatase 254 H Total Protein 5.1 L Albumin 2.1 L Globulin 3.0 Albumin/Globulin Ratio 0.7 L Stl C. diff Tox B Gene Medications Administered Current Inpatient Medications Hydrocodone Bitart/Acetaminophen (Hydrocodone/Acetaminophen 10/325 Tab) 2 tab PO Q6H PRN PRN Reason: Pain Stop: 11/16/20 03:06 Last Admin: 11/09/20 22:04 Dose: 2 tab Documented by: Ascorbic Acid (Ascorbic Acid 500 Mg Tab) 1,000 mg PO QAM THOMAS Stop: 12/02/20 08:59 Last Admin: 11/10/20 08:19 Dose: 1,000 mg Documented by: Aspirin (Aspirin 81 Mg Ectab) 81 mg PO Q48H THOMAS Stop: 12/02/20 08:59 Last Admin: 11/08/20 08:27 Dose: 81 mg Documented by: Atorvastatin Calcium (Atorvastatin 20 Mg Tab) 20 mg PO HS THOMAS Stop: 12/02/20 20:59 Last Admin: 11/02/20 21:28 Dose: Not Given Documented by: Colestipol HCl (Colestipol Hcl 1 Gm Tab) 1 gm PO BID@1000,2200 THOMAS Stop: 12/08/20 21:59 Last Admin: 11/09/20 22:08 Dose: 1 gm Documented by: Nystatin 30 ml/ Dexamethasone 3.75 mg/ Diphenhydramine HCl 300 mg/ Sucrose 45 ml/Microcrystalline Cellulose 45 ml/ BARCODE IDENTIFIER 1 ea 0 ml PO Q4H PRN PRN Reason: Thrush Stop: 12/03/20 11:59 Last Admin: 11/05/20 08:29 Dose: 5 ml Documented by: Diphenoxylate HCl/Atropine (Diphenoxylate/Atropine 2.5/0.025mg Tab) 1 tab PO Q4H PRN PRN Reason: Diarrhea Stop: 12/07/20 20:14 Last Admin: 11/08/20 14:02 Dose: 1 tab Documented by: Enoxaparin Sodium (Enoxaparin 80 Mg/0.8 Ml Syr) 80 mg SQ BID THOMAS Stop: 12/05/20 20:59 Last Admin: 11/09/20 22:08 Dose: 80 mg Documented by: Gabapentin (Gabapentin 300 Mg Cap) 300 mg PO HS [facility] Stop: 12/02/20 20:59 Last Admin: 11/09/20 22:09 Dose: 300 mg Documented by: Hydromorphone HCl (Hydromorphone Inj 1 Mg/Ml Syringe) 1 mg IV Q3H PRN PRN Reason: Pain Stop: 11/23/20 13:03 Last Admin: 11/10/20 06:26 Dose: 1 mg Documented by: Lorazepam (Ativan) 0.5 mg in 1 mls @ 0.5 mls/min IV Q8H PRN PRN Reason: Anxiety Stop: 12/09/20 13:03 Last Admin: 11/10/20 06:49 Dose: 0.5 mls/min Documented by: Piperacillin Sod/Tazobactam (Sod 3.375 gm/ Dextrose) 115 mls @ 28.75 mls/hr IV Q8H [facility]; Protocol Stop: 11/24/20 09:14 Ipratropium [place] (Ipratropium [place] Neb Soln 0.02% 2.5 Ml Vial) 0.5 mg INH Q4R PRN PRN Reason: Dyspnea Stop: 12/02/20 11:25 Lidocaine (Lidocaine 5% 1 Patch) 1 patch TD QAM THOMAS Stop: 12/09/20 11:44 Last Admin: 11/10/20 08:19 Dose: 1 patch Documented by: Midodrine (Midodrine Hcl 2.5 Mg Tab) 5 mg PO TID@0800,1200,1700 [facility] Stop: 12/05/20 16:59 Last Admin: 11/10/20 08:19 Dose: 5 mg Documented by: Miscellaneous (Remove Lidoderm Patch) 1 ea N/A DAILY@2100 [facility] Stop: 12/09/20 23:29 Last Admin: 11/09/20 23:10 Dose: 1 ea Documented by: Miscellaneous Information (Piperacill/Tazobac Consult Active) 1 ea N/A UD PRN PRN Reason: Consult Stop: 12/10/20 09:04 Ondansetron HCl (Ondansetron 4 Mg Od Tab) 8 mg PO Q8H PRN PRN Reason: NAUSEA/VOMITING Ondansetron HCl (Ondansetron Inj 2 Mg/Ml 2 Ml Vial) 4 mg IV Q6H PRN PRN Reason: Nausea Stop: 12/02/20 03:06 Last Admin: 11/09/20 13:12 Dose: 4 mg Documented by: Pantoprazole Sodium (Pantoprazole 40 Mg Tab) 40 mg PO QAM [facility] Stop: 12/02/20 08:59 Last Admin: 11/10/20 08:18 Dose: 40 mg Documented by: Potassium Chloride (Potassium Chloride Crtab 20 Meq Tabcr) 20 meq PO BID [facility] Stop: 12/08/20 10:59 Last Admin: 11/10/20 08:17 Dose: 20 meq Documented by: Prochlorperazine (Prochlorperazine Maleate 10 Mg Tab) 10 mg PO Q6H PRN PRN Reason: NAUSEA/VOMITING Stop: 12/02/20 03:06 Last Admin: 11/07/20 16:30 Dose: 10 mg Documented by: Saccharomyces Boulardii (Saccharomyces Boulardii 250 Mg Cap) 250 mg PO DAILY [facility] Stop: 12/06/20 14:59 Last Admin: 11/10/20 08:18 Dose: 250 mg Documented by: Umeclidinium/Vilanterol (Umeclidinium/Vilanterol 62.5/25mcg 7 Puffs/Inhaler) 1 puffs INH HS [facility] Stop: 12/02/20 20:59 Last Admin: 11/09/20 22:08 Dose: 1 puffs Documented by: Ursodiol (Ursodiol 300 Mg Cap) 300 mg PO BID [facility] Stop: 12/03/20 08:59 Last Admin: 11/10/20 08:17 Dose: 300 mg Documented by: Vitamin D (Cholecalciferol 1,000 Units 25 Mcg Tab) 1,000 units PO QAM THOMAS Stop: 12/02/20 08:59 Last Admin: 11/10/20 08:18 Dose: 1,000 units Documented by: PG Care Time/CCT Total # of Minutes Spent Total Time Spent: 70 Total Time Spent with Patient: Total time spent is greater than 50% in coordination of care (as documented) at patient's floor/unit and/or counseling patient: three separate visits with patient and then conversations with family at the bedside discussed with ICU attending discussed with night resident reviewed chart discussed several times with nursing Prolonged Care Time Prolonged Care Time: Yes Total Prolonged Care Time: 40 Coding Level of Care Code 87398 Subseq Hosp Care Lvl 3 (25 - SIGNIFICANT, SEPARATELY IDENTIFIABLE ) Diagnoses Abdominal pain R10.9 Septic shock A41.9; R65.21 Cholangitis K83.09 Bacteremia R78.81 Acute kidney injury N17.9 Congestive heart failure I50.9 Pulmonary embolism, bilateral I26.99 Aortic valve disorder I35.9 Pancreatic adenocarcinoma C25.9 Hypomagnesemia E83.42 Dyslipidemia E78.5 Chronic obstructive pulmonary disease J44.9 COPD type: unspecified COPD Hypertension I10 Hypertension type: unspecified Hypokalemia E87.6 Anemia D64.9 Thrombocytopenia D69.6 Acute and chronic respiratory failure J96.20 CKD (chronic kidney disease) stage 3, GFR 30-59 ml/min N18.30 Diarrhea R19.7 DVT prophylaxis Z29.9 Hemorrhagic shock R57.8 Psoas hematoma, left, secondary to anticoagulant therapy S30.1XXA Additional Codes Prolonged Care Time - Prolonged Care Time: Yes ([id number]) (1) Chronic obstructive pulmonary disease COPD type: unspecified COPD Qualified Code(s): J44.9 - Chronic obstructive pulmonary disease, unspecified (2) Hypertension Hypertension type: unspecified Qualified Code(s): I10 - Essential (primary) hypertension
[2020-11-10] MEDS ORDERED: HYDROmorphone INJ 1 MG/ML SYRINGE IV PRN (09:09)
[2020-11-10] MEDS ORDERED: LORazepam 0.25 MG/0.5 ML VIAL IV PRN ×2 (09:09→10:39)
--- NOTE | 2020-11-10 09:11 | Palliative Care Progress Note ---
Date of Service November 10, 2020 Assessment & Plan (1) Palliative care encounter: Plan: Contacted this morning by nursing. Patient with positive response to the Ativan and is less restless today, but she is more lethargic and confused this morning. Her pupils were equal and reactive to light, with size [address] Lagos and I discussed her CT scan which revealed psoas muscle involvement, likely explaining some of her left hip pain with possible abscess. I did reach out to the patients daughter, Yumi, and talked with her at length regarding her current medical status and changes that were made to medications and additional lab work, new medications that were discussed today. Dora's daughter, Emma is en route from [place] today and will be arriving after lunch time today to be with her mother. Palliative Medicine will follow. (2) Cholangitis: Plan: Resolved with CBD placement on 11/02. Zofran resolved her nausea as of today. (3) Pancreatic adenocarcinoma: Plan: Received one dose of chemotherapy. Pt decided to not pursue second dose due to debilitating effects. Apparently, a whipples procedure was discussed at [place] at diagnosis. CT abdomen and pelvis performed one week ago, no metastasis noted. CT scan of abdomen and pelvis obtained, results remarkable for + psoas muscle inflammation and hematoma. No joint involvement. (4) Left hip pain: Plan: In talking with nursing, patient less interactive and more confused today. She has utilized a total of 4 mg of IV Dilaudid over past 24 hours.. She also has Norco10/325 2 tab PO q6 PRN, which she has said is less helpful for her pain. On exam, patient left hip tender to touch. Some CVA tenderness on left side as referred pain. + pain while lifting left heel off of the bed. No sciatic or numbness of tingling noted. No vomiting/nausea/diarrhea. Pt does have furrowed brow and grimacing during exam, but is considerably more tired and less interactive. Currently on Dilaudid 1 mg IV Q4 PRN and she has utilized four doses over the past 24 hours for a total of 4 mg. Will hold opioids and continue to assess mental status. Decreased order to Dilaudid 0.5 mg IV Q 6 hours. Lidoderm patch ordered and appears effective. She also does have Gabapentin 300 mg PO QHS for adjuvant therapy. Creatinine/GFR 0.75/77 (5) Anxiety: Plan: Historically, patient does have some anxiety. Discussed anxiolytics as this could be exacerbating the pain yesterday with the patient. She has never taken an anxiolytic before, but was receptive to having one PRN. Ativan 0.5 mg IV Q 8 PRN ordered and she has taken 3 doses over past 24 hours with her last dose being 3 hours prior to my exam and encounter. Per discussion with nursing, significant relief observed with taking the Ativan and they anticipate she would be considerably more restless without it. Until we have a better understanding of the reasons behind her mental status change, will pull back dosing to Ativan 0.25 IV Q 8. Could consider SL as well. (6) Altered mental status: Plan: Patient with increased confusion today and more lethargy. Patient not considered opioid naive, but changing medication dosing of opioids to assess further. WBC count has increased from 11 to 14 over the past 24 hours. IV antibiotics changed by hospitalist and blood cultures ordered to assess for infectious cause of AMS. Pt did have diarrhea previously with Zosyn. No diarrhea noted yesterday or today. Will monitor. As her mental status change was not anticipated, could consider head CT as next step for ruling out metastasis. Admission and Anticipated Discharge Date Admission Date: November 02, 2020 Subjective Patient more lethargic today. Having difficulties with swallowing her pills and having a decreased appetite. CT scan revealed + psoas muscle injury, explaining some of her left hip pain. Pt with increased confusion this morning. Nausea improved. No diarrhea. See A/P for further details. Review of Systems 2 Review of Systems: [place] Symptom Assessment Scale Pain 2/3 Dyspnea 0/3 Anxiety 1/3 Fatigue 2/3 Nausea 1/3 Anorexia 0/3 Drowsiness 2/3 Lack of Appetite: 2/3 Palliative Performance Score 30% Physical Exam Constitutional: + acute distress, + ill appearing, + frail appearing and + lethargic; + uncomfortable ENMT: Mouth: + dry oral mucous membranes Respiratory: normal respiratory effort; no labored breathing Cardiovascular: Rate/Rhythm: regular rate and regular rhythm Musculoskeletal: Extremities: extremities normal to inspection Neurologic: awake and + confused Psychiatric: Orientation: alert Eye Contact: + fair eye contact Results & Data ([facility]) Vital Signs (Past 12 Hours) Vital Signs Temp Pulse Resp BP Pulse Ox 07/21/21 07:17 36.5 C 80 19 120/69 90 11/10/20 04:00 36.8 C 89 18 122/63 93 11/09/20 23:12 36.7 C 80 20 122/80 92 PG Care Time/CCT Total # of Minutes Spent Total Time Spent with Patient: Total time spent is greater than 50% in coordination of care (as documented) at patient's floor/unit and/or counseling patient: 45 minutes with > 50% of that time spent assessing the patient, discussing goals of care with family and updaing them, along with collaborating with IDT Coding Level of Care Code 14927 Subseq Obs Care Lvl 3 Diagnoses Palliative care encounter Z51.5 Cholangitis K83.09 Pancreatic adenocarcinoma C25.9 Left hip pain M25.552 Anxiety F41.9 Altered mental status R41.82 Time Spent (min) 45
[2020-11-10] MEDS ORDERED: PIPERACILLIN/TAZOBACTAM 4.5 GM in DEXTROSE 5% 100 ML IV ONE (09:15)
[2020-11-10] MEDS: COLESTIPOL HCL 1 GM TAB PO SCH ×2 (10:48→21:06)
[2020-11-10] MEDS: HYDROcodone/ACETAMINOPHEN 10/325 TAB PO PRN (14:00)
[2020-11-10] MEDS ORDERED: D5W AND 1/2NSS 1,000 ML IV SCH (14:15)
[2020-11-10] MEDS: PIPERACILLIN/TAZOBACTAM 3.375 GM in DEXTROSE 5% 100 ML IV SCH ×2 (15:10→21:07)
[2020-11-10] MEDS ORDERED: SODIUM CHLORIDE 0.9% 250 ML IV PRN (16:31)
[2020-11-10] MEDS ORDERED: SODIUM CHLORIDE 0.9% 1000ML 1,000 ML IV ONE (16:31)
[2020-11-10 17:07] LABS: Hematocrit (blood only) 17.2 % (37-47); Hemoglobin 5.7 g/dL (12.0-16.0)
[2020-11-10] MEDS ORDERED: FUROSEMIDE 20 MG in SYRINGE 0 ML IV ONE (17:23)
[2020-11-10] MEDS ORDERED: FUROSEMIDE 40 MG/4 ML VIAL IV ONE (17:30)
[2020-11-10] MEDS ORDERED: ONDANSETRON 4 MG OD TAB SL PRN (19:03)
[2020-11-10] MEDS ORDERED: STAT IV Infusion **Titration per Protocol STA (19:03)
[2020-11-10] MEDS ORDERED: ONDANSETRON INJ 2 MG/ML 2 ML VIAL IV PRN (19:03)
[2020-11-10] MEDS: MoRPHine SULF/NSS 250 MG/250 ML BTL IV SCH (19:42)
[2020-11-10] MEDS: UMECLIDINIUM/VILANTEROL 62.5/25MCG 7 PUFFS/INHALER INH SCH (21:05)
[2020-11-10] MEDS: GABAPENTIN 300 MG CAP PO SCH (21:05)
[2020-11-11] MEDS ORDERED: GLYCOPYRROLATE 0.2 MG/ML VIAL IV PRN (09:58)
--- NOTE | 2020-11-11 10:06 | Palliative Care Progress Note ---
Date of Service November 11, 2020 Assessment & Plan (1) Left hip pain: Plan: Improved with morphine infusion. She has a h/o CKD but recent creatinine and GFR were normal. Continue morphine infusion and monitor for opioid toxicity. She also has lidoderm patch as adjuvant. Per family wishes, focus of care is strictly comfort. SCDs, po meds and BG checks discontinued. (2) Palliative care encounter: Plan: I met with her daughters at bedside. They are tearful and trying to cope with Dora's sudden decline. I talked with them about my conversations with Dora over the last few days and how proud she is of them and how grateful she is for their support. We talked about what to expect and prognosis is likely within the next few days. They are supporting each other and also trying to help their father who is frail and unable to live at home alone. (3) Psoas hematoma, left, secondary to anticoagulant therapy: (4) CKD (chronic kidney disease) stage 3, GFR 30-59 ml/min: (5) Pancreatic adenocarcinoma: (6) Congestive heart failure: (7) Aortic valve disorder: (8) Pulmonary embolism, bilateral: Admission and Anticipated Discharge Date Admission Date: November 02, 2020 Subjective Now on comfort measures with morphine infusion. Arouses with stimulation and tells me that she does not have pain. Her daughters feel that she is comfortable. Review of Systems Review of Systems: [place] Symptom Assessment Scale Pain0/3 Dyspnea 0/3 Nausea 0/3 Drowsiness 2/3 Palliative Performance Score 10% Physical Exam Constitutional: comfortable ENMT: Mouth: + dry oral mucous membranes Respiratory: no labored breathing Cardiovascular: no edema, no mottling Musculoskeletal: warm to touch Neurologic: lethargic Genitourinary: Watson catheter PG Care Time/CCT Total # of Minutes Spent Total Time Spent: 40 Total Time Spent with Patient: Total time spent is greater than 50% in coordination of care (as documented) at patient's floor/unit and/or counseling patient: symptom management, prognosis, what to expect, family education and support Coding Level of Care Code 61352 Subseq Hosp Care Lvl 3 Diagnoses Palliative care encounter Z51.5 Left hip pain M25.552 Psoas hematoma, left, secondary to anticoagulant therapy S30.1XXA CKD (chronic kidney disease) stage 3, GFR 30-59 ml/min N18.30 Pancreatic adenocarcinoma C25.9 Congestive heart failure I50.9 Aortic valve disorder I35.9 Pulmonary embolism, bilateral I26.99
[2020-11-11] MEDS: LIDOCAINE 5% 1 PATCH TD SCH (10:34)
[2020-11-11] MEDS: LORazepam 0.5 MG/1 ML VIAL IV PRN (14:10)
--- NOTE | 2020-11-11 14:57 | Hospitalist Progress Note ---
Date of Service November 11, 2020 Assessment & Plan (1) Palliative care encounter: Plan: patient now on AUTO FINANCE SALES REP, morphine drip, Ativan PRN she is comfortable, talked with family, answered their questions offered empathy problems below were last updated 11/10 when she went into hemorrhage shock and transitioned to AUTO FINANCE SALES REP (2) Hemorrhagic shock: Plan: bleeding in psoas muscle on left, spontaneous, likely from anticoagulation dropped BP to 60's systolic, compounded by low volume from diarrhea and poor oral intake past two days brief response to NSS 1 liter bolus and started to transfuse 2 units of PRBC patient in a great deal of pain, suffering, cannot give strong narcotics without dropping BP further plan to transition to comfort measures (3) Psoas hematoma, left, secondary to anticoagulant therapy: Plan: spontaneous hematoma, was on Lovenox at therapeutic level severe pain that started on 11/09, CT abd/pelvis showed the hematoma in evening on 11/09 stopped Lovenox and aspirin once diagnosis made however, too much blood loss and pain comfort measures (4) Abdominal pain: Plan: new issue, LLQ and suprapubic, into left hip due to psoas hematoma Dilaudid IV for pain relief but it is causing lethargy, confusion and contributing to hypotension (5) Septic shock: Plan: Presented with weakness, SOB, and shortly after admission found to be febrile, severely hypotensive that was minimally responsive to crystalloid boluses of IV fluids. She had elevated LFTs and in an obstructive pattern and was noted to have possible blockage of her known biliary stent on imaging. She was transferred to the ICU on the morning of 11/02 and started on Levophed- weaned off vasopressors on evening of 11/05 after starting IV hydrocortisone -With acute kidney injury now resolved; acute respiratory failure with hypoxia persists but improved ascending cholangitis secondary to biliary stent obstruction Growing Klebsiella in blood cultures Repeat BCxs with BAKING ASSISTANT-contaminant Is now status post urgent ERCP on 11/02 which revealed complete blockage of biliary stent with pus and stones and sludge-removal of stent and placement of new stent in CBD -plan to treat with Rocephin for 14 days as per GI- -downgraded out of ICU on 11/06, had remained stable until psoas hematoma on 11/09 and hypotension on 11/10 -Follow urine culture-no growth WBC up to 14k new blood cultures drawn this morning when wasn't clear if it was hematoma or abscess changed to Zosyn for anerobic coverage now will pursue comfort measures (6) Cholangitis: Plan: As above Ceftriaxone -- now Zosyn Started Actigall 300 mg p.o. twice daily to prevent future stones and sludge formation (7) Bacteremia: Plan: As above, growing pansensitive Klebsiella repeat cxs with contaminant BAKING ASSISTANT 1/2 repeat BCxs again on 11/06 NGTD would consider negative blood cultures on 11/04, last day would be 11/18 currently on Zosyn (8) Acute kidney injury: Plan: Creatinine elevated 1.9 upon admission now down to 1.0 after volume resusci tation and vasopressors Follow BMP periodically Renally dose medications urine output is lower today with bleeding and hypotension (9) Congestive heart failure: Plan: Acute systolic CHF Echocardiogram showing biventricular failure Unclear etiology-sepsis versus chemotherapy, seems less likely to be ischemic Appreciate cardiology consultation Was given 1 dose of IV Lasix on the development disability specialist of 11/03 for worsening hypoxia Has bilateral pleural effusions on chest x-ray planned to give Lasix 20mg IV after PRBC transfusions (10) Pulmonary embolism, bilateral: Plan: CT angiography of chest demonstrating segmental and subsegmental pulmonary emboli and right lower lobe and left upper lobe. 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 Appreciate oncology consultation Holding off on further chemotherapy at this time-in fact, pt and her family all in agreement to not continue any further chemotherapy Agreeable to consultation with Palliative Medicine for further discussion of goals of care-does not want to do any more chemotherapy most likely due to severe debility and may shorten her lifespan her plan was SNF or home hospice now with hypotension, bleeding, severe pain will transition to comfort care (13) Hypomagnesemia: Plan: Replaced and resolved follow BMP (14) Dyslipidemia: Plan: Holding home atorvastatin but could restart on discharge if desired (15) Chronic obstructive pulmonary disease: Plan: Wears 2 L nasal cannula at nighttime Now on continuous supplemental O2 secondary to volume overload but is now weaned down to 3 L Albuterol and ipratropium as needed Continue home Anoro (16) Hypertension: Plan: holding BP meds with low BP (17) Hypokalemia: Plan: K stable (18) Anemia: Plan: Hemoglobin had been 8.2 now with acute blood loss anemia, hemorrhage from psoas muscle (19) Thrombocytopenia: Plan: Platelet count omid at 85 and now continues to be improving, likely secondary to antineoplastic effect as well as could be from sepsis (20) Acute and chronic respiratory failure: Plan: On continuous supplemental O2 as noted above secondary to volume overload and pleural effusions in the setting of chronic 2 L nasal cannula at night for COPD Diurese cautiously as needed breathing stable, no distress (21) CKD (chronic kidney disease) stage 3, GFR 30-59 ml/min: Plan: CKD stage III With acute kidney injury as above, now resolved -Avoid nephrotoxins -renally dose meds when appropriate -follow BMP (22) Diarrhea: Plan: two more loose stools today, making patient miserable continue Lomotil to q4 PRN, add Colestid 5gm BID C. diff gene positive but toxin negative on 11/06 repeat C diff testing NEGATIVE again likely 2/2 abx and liquids diet restarted home probiotics no changes in colon on CT a/p (23) DVT prophylaxis: Plan: stop Lovenox due to psoas hematoma Admission and Anticipated Discharge Date Admission Date: November 02, 2020 Subjective patient comfortable on morphine drip assured family that this was the right decision, she was in so much pain, could not stop bleeding, so many other issues offered empathy Review of Systems Review of Systems: Unobtainable due to reduced consciousness (appears comfortable) Physical Exam Constitutional: + altered mental status, + frail appearing and + lethargic Neck: trachea midline, no thyromegaly Respiratory: normal respiratory effort; no respiratory distress Cardiovascular: RRR, no murmur, no edema Gastrointestinal (Abdomen): Inspection/Auscultation: abdomen normal to inspection Skin: no rashes, warm and dry Psychiatric: Orientation: + not alert Results & Data Results & Data ([place]) Laboratory Results Laboratory Results - last 24 hr 11/10/20 11/10/20 16:35 16:35 Hgb 5.7 L* Hct 17.2 L* Blood Type A Positive Antibody Screen NEGATIVE Crossmatch See Detail Medications Administered Current Inpatient Medications Glycopyrrolate (Glycopyrrolate 0.2 Mg/Ml Vial) 0.2 mg IV Q4H PRN PRN Reason: secretions Stop: 12/11/20 09:57 Hydromorphone HCl (Hydromorphone Inj 1 Mg/Ml Syringe) 0.5 mg IV Q6H PRN PRN Reason: Pain Stop: 11/23/20 13:04 Lorazepam (Ativan) 0.5 mg in 1 mls @ 1 mls/min IV Q4H PRN PRN Reason: Anxiety/Agitation Stop: 12/10/20 19:02 Last Admin: 11/11/20 14:10 Dose: 1 mls/min Documented by: Morphine Sulfate (Morphine Sulf/Nss) 250 mg in 250 mls @ 4 mls/hr IV .[id number] FOR[facility]LY [facility], 1928–1983; Protocol Stop: 11/24/20 19:14 Last Titration: 11/11/20 14:30 Dose: 4 mg/hr, 4 mls/hr Documented by: Lidocaine (Lidocaine 5% 1 Patch) 1 patch TD QAM [facility], [facility]1983 Stop: 12/09/20 11:44 Last Admin: 11/11/20 10:34 Dose: Not Given Documented by: Miscellaneous (Remove Lidoderm Patch) 1 ea N/A DAILY@2100 [facility], [facility]1983 Stop: 12/09/20 23:29 Last Admin: 11/10/20 21:05 Dose: 1 ea Documented by: Ondansetron HCl (Ondansetron Inj 2 Mg/Ml 2 Ml Vial) 4 mg IV Q4H PRN PRN Reason: Nausea And Vomiting Stop: 12/10/20 19:02 PG Care Time/CCT Total # of Minutes Spent Total Time Spent with Patient: Total time spent is greater than 50% in coordination of care (as documented) at patient's floor/unit and/or counseling patient: Coding Level of Care Code 29163 Subseq Hosp Care Lvl 1 Diagnoses Hemorrhagic shock R57.8 Psoas hematoma, left, secondary to anticoagulant therapy S30.1XXA Abdominal pain R10.9 Septic shock A41.9; R65.21 Cholangitis K83.09 Bacteremia R78.81 Acute kidney injury N17.9 Congestive heart failure I50.9 Pulmonary embolism, bilateral I26.99 Aortic valve disorder I35.9 Pancreatic adenocarcinoma C25.9 Hypomagnesemia E83.42 Dyslipidemia E78.5 Chronic obstructive pulmonary disease J44.9 COPD type: unspecified COPD Hypertension I10 Hypertension type: unspecified Hypokalemia E87.6 Anemia D64.9 Thrombocytopenia D69.6 Acute and chronic respiratory failure J96.20 CKD (chronic kidney disease) stage 3, GFR 30-59 ml/min N18.30 Diarrhea R19.7 DVT prophylaxis Z29.9 Palliative care encounter Z51.5 (1) Chronic obstructive pulmonary disease COPD type: unspecified COPD Qualified Code(s): J44.9 - Chronic obstructive pulmonary disease, unspecified (2) Hypertension Hypertension type: unspecified Qualified Code(s): I10 - Essential (primary) hypertension
[2020-11-12] MEDS: LORazepam 0.5 MG/1 ML VIAL IV PRN (07:12)
[2020-11-12] MEDS: LIDOCAINE 5% 1 PATCH TD SCH (10:06)
--- NOTE | 2020-11-12 13:37 | Palliative Care Progress Note ---
Date of Service November 12, 2020 Assessment & Plan (1) Left hip pain: Plan: Appears comfortable on morphine infusion. Monitor for opioid toxicity with Stage III CKD and no po intake. (2) Abdominal pain: Plan: As above (3) Palliative care encounter: Plan: Talked with Dora's daughters at bedside. With apnea and hypotension she ap pears to be nearing her dying time. Anticipate within hours to a day or two. Talked with daughters about what to expect. They feel that they are coping better today. Her has been in regularly to visit but does not tolerate long visits. (4) Psoas hematoma, left, secondary to anticoagulant therapy: (5) CKD (chronic kidney disease) stage 3, GFR 30-59 ml/min: (6) Adenocarcinoma: (7) Chronic obstructive pulmonary disease: Admission and Anticipated Discharge Date Admission Date: November 02, 2020 Subjective Dora is less responsive today. Her daughters note that she will talk with them occassionally which has been very valuable to them. She appears comfortable at rest. Family denies concerns about comfort. RN reports that she tolerates routine care. She has not had any prn opioid with infusion now running at 4mg/hr. She has had prn lorazepam, at her request, x 2 in last 24 hours. Review of Systems Review of Systems: Unobtainable due to reduced consciousness [place] Symptom Assessment Scale PainAD 0/3 Dyspnea by observation 0/3 Palliative Performance Score 10% Physical Exam Constitutional: + ill appearing and comfortable ENMT: Mouth: + dry oral mucous membranes Respiratory: apnea noted, no audible secretions Cardiovascular: Extremities: no edema Gastrointestinal (Abdomen): nontender Skin: cool to touch Neurologic: + obtunded Results & Data ([facility]) Vital Signs (Past 12 Hours) Vital Signs Temp Pulse Resp BP Pulse Ox 11/12/20 09:00 97.9 F 60 12 88/60 L 94 PG Care Time/CCT Total # of Minutes Spent Total Time Spent with Patient: Total time spent is greater than 50% in c oordination of care (as documented) at patient's floor/unit and/or counseling patient: Coding Level of Care Code 01085 Subseq Hosp Care Lvl 2 Diagnoses Left hip pain M25.552 Abdominal pain R10.9 Palliative care encounter Z51.5 Psoas hematoma, left, secondary to anticoagulant therapy S30.1XXA CKD (chronic kidney disease) stage 3, GFR 30-59 ml/min N18.30 Adenocarcinoma C80.1 Chronic obstructive pulmonary disease J44.9 COPD type: unspecified COPD (1) Chronic obstructive pulmonary disease COPD type: unspecified COPD Qualified Code(s): J44.9 - Chronic obstructive pulmonary disease, unspecified
--- NOTE | 2020-11-12 22:36 | Hospitalist Progress Note ---
Date of Service November 12, 2020 Assessment & Plan (1) Palliative care encounter: Plan: patient now on TELECOM ANALYST, morphine drip, Ativan PRN she is comfortable, talked with family, answered their questions offered empathy problems below were last updated 11/10 when she went into hemorrhage shock and transitioned to TELECOM ANALYST (2) Hemorrhagic shock: Plan: bleeding in psoas muscle on left, spontaneous, likely from anticoagulation dropped BP to 60's systolic, compounded by low volume from diarrhea and poor oral intake past two days brief response to NSS 1 liter bolus and started to transfuse 2 units of PRBC patient in a great deal of pain, suffering, cannot give strong narcotics without dropping BP further plan to transition to comfort measures (3) Psoas hematoma, left, secondary to anticoagulant therapy: Plan: spontaneous hematoma, was on Lovenox at therapeutic level severe pain that started on 11/09, CT abd/pelvis showed the hematoma in evening on 11/09 stopped Lovenox and aspirin once diagnosis made however, too much blood loss and pain comfort measures (4) Abdominal pain: Plan: new issue, LLQ and suprapubic, into left hip due to psoas hematoma Dilaudid IV for pain relief but it is causing lethargy, confusion and contributing to hypotension (5) Septic shock: Plan: Presented with weakness, SOB, and shortly after admission found to be febrile, severely hypotensive that was minimally responsive to crystalloid boluses of IV fluids. She had elevated LFTs and in an obstructive pattern and was noted to have possible blockage of her known biliary stent on imaging. She was transferred to the ICU on the morning of 11/02 and started on Levophed- weaned off vasopressors on evening of 11/05 after starting IV hydrocortisone -With acute kidney injury now resolved; acute respiratory failure with hypoxia persists but improved ascending cholangitis secondary to biliary stent obstruction Growing Klebsiella in blood cultures Repeat BCxs with DIRECTOR OF ADVERTISING SALES-contaminant Is now status post urgent ERCP on 11/02 which revealed complete blockage of biliary stent with pus and stones and sludge-removal of stent and placement of new stent in CBD -plan to treat with Rocephin for 14 days as per GI- -downgraded out of ICU on 11/06, had remained stable until psoas hematoma on 11/09 and hypotension on 11/10 -Follow urine culture-no growth WBC up to 14k new blood cultures drawn this morning when wasn't clear if it was hematoma or abscess changed to Zosyn for anerobic coverage now will pursue comfort measures (6) Cholangitis: Plan: As above Ceftriaxone -- now Zosyn Started Actigall 300 mg p.o. twice daily to prevent future stones and sludge formation (7) Bacteremia: Plan: As above, growing pansensitive Klebsiella repeat cxs with contaminant DIRECTOR OF ADVERTISING SALES 1/2 repeat BCxs again on 11/06 NGTD would consider negative blood cultures on 11/04, last day would be 11/18 currently on Zosyn (8) Acute kidney injury: Plan: Creatinine elevated 1.9 upon admission now down to 1.0 after volume resusci tation and vasopressors Follow BMP periodically Renally dose medications urine output is lower today with bleeding and hypotension (9) Congestive heart failure: Plan: Acute systolic CHF Echocardiogram showing biventricular failure Unclear etiology-sepsis versus chemotherapy, seems less likely to be ischemic Appreciate cardiology consultation Was given 1 dose of IV Lasix on the heel gouger of 11/03 for worsening hypoxia Has bilateral pleural effusions on chest x-ray planned to give Lasix 20mg IV after PRBC transfusions (10) Pulmonary embolism, bilateral: Plan: CT angiography of chest demonstrating segmental and subsegmental pulmonary emboli and right lower lobe and left upper lobe. 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 Appreciate oncology consultation Holding off on further chemotherapy at this time-in fact, pt and her family all in agreement to not continue any further chemotherapy Agreeable to consultation with Palliative Medicine for further discussion of goals of care-does not want to do any more chemotherapy most likely due to severe debility and may shorten her lifespan her plan was SNF or home hospice now with hypotension, bleeding, severe pain will transition to comfort care (13) Hypomagnesemia: Plan: Replaced and resolved follow BMP (14) Dyslipidemia: Plan: Holding home atorvastatin but could restart on discharge if desired (15) Chronic obstructive pulmonary disease: Plan: Wears 2 L nasal cannula at nighttime Now on continuous supplemental O2 secondary to volume overload but is now weaned down to 3 L Albuterol and ipratropium as needed Continue home Anoro (16) Hypertension: Plan: holding BP meds with low BP (17) Hypokalemia: Plan: K stable (18) Anemia: Plan: Hemoglobin had been 8.2 now with acute blood loss anemia, hemorrhage from psoas muscle (19) Thrombocytopenia: Plan: Platelet count omid at 85 and now continues to be improving, likely secondary to antineoplastic effect as well as could be from sepsis (20) Acute and chronic respiratory failure: Plan: On continuous supplemental O2 as noted above secondary to volume overload and pleural effusions in the setting of chronic 2 L nasal cannula at night for COPD Diurese cautiously as needed breathing stable, no distress (21) CKD (chronic kidney disease) stage 3, GFR 30-59 ml/min: Plan: CKD stage III With acute kidney injury as above, now resolved -Avoid nephrotoxins -renally dose meds when appropriate -follow BMP (22) Diarrhea: Plan: two more loose stools today, making patient miserable continue Lomotil to q4 PRN, add Colestid 5gm BID C. diff gene positive but toxin negative on 11/06 repeat C diff testing NEGATIVE again likely 2/2 abx and liquids diet restarted home probiotics no changes in colon on CT a/p (23) DVT prophylaxis: Plan: stop Lovenox due to psoas hematoma Admission and Anticipated Discharge Date Admission Date: November 02, 2020 Subjective patient comfortable updated family at bedside Review of Systems Review of Systems: Unobtainable due to cognitive status Physical Exam Physical Exam: resting comfortably on morphine drip PG Care Time/CCT Total # of Minutes Spent Total Time Spent with Patient: Total time spent is greater than 50% in coordination of care (as documented) at patient's floor/unit and/or counseling patient: Coding Level of Care Code 12690 Subseq Hosp Care Lvl 1 Diagnoses Palliative care encounter Z51.5 Hemorrhagic shock R57.8 Psoas hematoma, left, secondary to anticoagulant therapy S30.1XXA Abdominal pain R10.9 Septic shock A41.9; R65.21 Cholangitis K83.09 Bacteremia R78.81 Acute kidney injury N17.9 Congestive heart failure I50.9 Pulmonary embolism, bilateral I26.99 Aortic valve disorder I35.9 Pancreatic adenocarcinoma C25.9 Hypomagnesemia E83.42 Dyslipidemia E78.5 Chronic obstructive pulmonary disease J44.9 COPD type: unspecified COPD Hypertension I10 Hypertension type: unspecified Hypokalemia E87.6 Anemia D64.9 Thrombocytopenia D69.6 Acute and chronic respiratory failure J96.20 CKD (chronic kidney disease) stage 3, GFR 30-59 ml/min N18.30 Diarrhea R19.7 DVT prophylaxis Z29.9 (1) Chronic obstructive pulmonary disease COPD type: unspecified COPD Qualified Code(s): J44.9 - Chronic obstructive pulmonary disease, unspecified (2) Hypertension Hypertension type: unspecified Qualified Code(s): I10 - Essential (primary) hypertension
[2020-11-13] MEDS: LORazepam 0.5 MG/1 ML VIAL IV PRN ×2 (06:29→19:18)
[2020-11-13] MEDS: LIDOCAINE 5% 1 PATCH TD SCH (09:20)
[2020-11-13] MEDS: MoRPHine SULF/NSS 250 MG/250 ML BTL IV SCH (10:02)
--- NOTE | 2020-11-13 20:49 | Death Pronouncement Note ---
Date of Service November 13, 2020 Pronouncement Note Admission Date Admission Date: November 02, 2020 Date and Time of Date of : 11/13/20 Time of : 20:15 Contributing Factors (1) Hemorrhagic shock: (2) Psoas hematoma, left, secondary to anticoagulant therapy: (3) Pancreatic adenocarcinoma: (4) Abdominal pain: (5) Septic shock: (6) Cholangitis: (7) Bacteremia: (8) Acute kidney injury: (9) Congestive heart failure: (10) Pulmonary embolism, bilateral: (11) Aortic valve disorder: (12) Hypomagnesemia: (13) Dyslipidemia: (14) Chronic obstructive pulmonary disease: (15) Hypertension: (16) Hypokalemia: (17) Anemia: (18) Thrombocytopenia: (19) Acute and chronic respiratory failure: (20) CKD (chronic kidney disease) stage 3, GFR 30-59 ml/min: (21) Diarrhea: (22) DVT prophylaxis: (23) Palliative care encounter: Additional Data Confirmation of : no pulse, no respirations and no heart sounds Family: at bedside Attending physician: Narayan Villalta MD Was code activated?: No Resident Activity Tracking Resident Involvement: Resident Care Provided Care Provided: Adult Hospital Medicine
--- NOTE | 2020-11-13 22:25 | Hospitalist Progress Note ---
Date of Service November 13, 2020 Assessment & Plan (1) Palliative care encounter: Plan: Patient on comfort measures Appears to be in the last hours/days of her life Morphine for pain and respiratory distress Ativan for agitation PRN Problems below were last updated 11/10 when she went into hemorrhage shock and transitioned to [employer] (2) Hemorrhagic shock: Plan: bleeding in psoas muscle on left, spontaneous, likely from anticoagulation dropped BP to 60's systolic, compounded by low volume from diarrhea and poor oral intake past two days brief response to NSS 1 liter bolus and started to transfuse 2 units of PRBC patient in a great deal of pain, suffering, cannot give strong narcotics without dropping BP further plan to transition to comfort measures (3) Psoas hematoma, left, secondary to anticoagulant therapy: Plan: spontaneous hematoma, was on Lovenox at therapeutic level severe pain that started on 11/09, CT abd/pelvis showed the hematoma in evening on 11/09 stopped Lovenox and aspirin once diagnosis made however, too much blood loss and pain comfort measures (4) Abdominal pain: Plan: new issue, LLQ and suprapubic, into left hip due to psoas hematoma Dilaudid IV for pain relief but it is causing lethargy, confusion and contributing to hypotension (5) Septic shock: Plan: Presented with weakness, SOB, and shortly after admission found to be febrile, severely hypotensive that was minimally responsive to crystalloid boluses of IV fluids. She had elevated LFTs and in an obstructive pattern and was noted to have possible blockage of her known biliary stent on imaging. She was transferred to the ICU on the morning of 11/02 and started on Levophed- weaned off vasopressors on evening of 11/05 after starting IV hydrocortisone -With acute kidney injury now resolved; acute respiratory failure with hypoxia persists but improved ascending cholangitis secondary to biliary stent obstruction Growing Klebsiella in blood cultures Repeat BCxs with COST SPECIALIST-contaminant Is now status post urgent ERCP on 11/02 which revealed complete blockage of biliary stent with pus and stones and sludge-removal of stent and placement of new stent in CBD -plan to treat with Rocephin for 14 days as per GI- -downgraded out of ICU on 11/06, had remained stable until psoas hematoma on 11/09 and hypotension on 11/10 -Follow urine culture-no growth WBC up to 14k new blood cultures drawn this morning when wasn't clear if it was hematoma or abscess changed to Zosyn for anerobic coverage now will pursue comfort measures (6) Cholangitis: Plan: As above Ceftriaxone -- now Zosyn Started Actigall 300 mg p.o. twice daily to prevent future stones and sludge formation (7) Bacteremia: Plan: As above, growing pansensitive Klebsiella repeat cxs with contaminant CO[employer] SPECIALIST 1/2 repeat BCxs again on 11/06 NGTD would consider negative blood cultures on 11/04, last day would be 11/18 currently on Zosyn (8) Acute kidney injury: Plan: Creatinine elevated 1.9 upon admission now down to 1.0 after volume resuscitation and vasopressors Follow BMP periodically Renally dose medications urine output is lower today with bleeding and hypotension (9) Congestive heart failure: Plan: Acute systolic CHF Echocardiogram showing biventricular failure Unclear etiology-sepsis versus chemotherapy, seems less likely to be ischemic Appreciate cardiology consultation Was given 1 dose of IV Lasix on the pot filler of 11/03 for worsening hypoxia Has bilateral pleural effusions on chest x-ray planned to give Lasix 20mg IV after PRBC transfusions (10) Pulmonary embolism, bilateral: Plan: CT angiography of chest demonstrating segmental and subsegmental pulmonary emboli and right lower lobe and left upper lobe. treated with Lovenox 80 mg SQ bid for therapeutic dosing now stopped on 11/09 due to psoas hematoma (11) Aortic valve disorder: Plan: With large growth seen on aortic valve on echocardiogram, cardiology suspects possible fibroblastoma and less likely to be vegetation Blood cultures with Klebsiella which is not consistent with infective endocarditis Patient is too unstable to undergo LITO and would not change management manager at this time as she is not able to undergo valve replacement if needed no further bacteremia no abx needed for this (12) Pancreatic adenocarcinoma: Plan: Patient reports she had her first chemotherapy week before admission, and was due for second chemotherapy on 11/02. Appreciate oncology consultation Holding off on further chemotherapy at this time-in fact, pt and her family all in agreement to not continue any further chemotherapy Agreeable to consultation with Palliative Medicine for further discussion of goals of care-does not want to do any more chemotherapy most likely due to severe debility and may shorten her lifespan her plan was SNF or home hospice now with hypotension, bleeding, severe pain will transition to comfort care (13) Hypomagnesemia: Plan: Replaced and resolved follow BMP (14) Dyslipidemia: Plan: Holding home atorvastatin but could restart on discharge if desired (15) Chronic obstructive pulmonary disease: Plan: Wears 2 L nasal cannula at nighttime Now on continuous supplemental O2 secondary to volume overload but is now weaned down to 3 L Albuterol and ipratropium as needed Continue home Anoro (16) Hypertension: Plan: holding BP meds with low BP (17) Hypokalemia: Plan: K stable (18) Anemia: Plan: Hemoglobin had been 8.2 now with acute blood loss anemia, hemorrhage from psoas muscle (19) Thrombocytopenia: Plan: Platelet count omid at 85 and now continues to be improving, likely secondary to antineoplastic effect as well as could be from sepsis (20) Acute and chronic respiratory failure: Plan: On continuous supplemental O2 as noted above secondary to volume overload and pleural effusions in the setting of chronic 2 L nasal cannula at night for COPD Diurese cautiously as needed breathing stable, no distress (21) CKD (chronic kidney disease) stage 3, GFR 30-59 ml/min: Plan: CKD stage III With acute kidney injury as above, now resolved -Avoid nephrotoxins -renally dose meds when appropriate -follow BMP (22) Diarrhea: Plan: two more loose stools today, making patient miserable continue Lomotil to q4 PRN, add Colestid 5gm BID C. diff gene positive but toxin negative on 11/06 repeat C diff testing NEGATIVE again likely 2/2 abx and liquids diet restarted home probiotics no changes in colon on CT a/p (23) DVT prophylaxis: Plan: stop Lovenox due to psoas hematoma Admission and Anticipated Discharge Date Admission Date: November 02, 2020 Subjective Patient appears comfortable. Remains on comfort measures. Review of Systems Review of Systems: Unobtainable due to cognitive status Physical Exam Constitutional: + cachectic; no acute distress Respiratory: no respiratory distress PG Care Time/CCT Total # of Minutes Spent Total Time Spent with Patient: Total time spent is greater than 50% in coordination of care (as documented) at patient's floor/unit and/or counseling patient: Coding Level of Care Code 31475 Subseq Hosp Care Lvl 1 Diagnoses Palliative care encounter Z51.5 Hemorrhagic shock R57.8 Psoas hematoma, left, secondary to anticoagulant therapy S30.1XXA Abdominal pain R10.9 Septic shock A41.9; R65.21 Cholangitis K83.09 Bacteremia R78.81 Acute kidney injury N17.9 Congestive heart failure I50.9 Pulmonary embolism, bilateral I26.99 Aortic valve disorder I35.9 Pancreatic adenocarcinoma C25.9 Hypomagnesemia E83.42 Dyslipidemia E78.5 Chronic obstructive pulmonary disease J44.9 COPD type: unspecified COPD Hypertension I10 Hypertension type: unspecified Hypokalemia E87.6 Anemia D64.9 Thrombocytopenia D69.6 Acute and chronic respiratory failure J96.20 CKD (chronic kidney disease) stage 3, GFR 30-59 ml/min N18.30 Diarrhea R19.7 DVT prophylaxis Z29.9 (1) Chronic obstructive pulmonary disease COPD type: unspecified COPD Qualified Code(s): J44.9 - Chronic obstructive pulmonary disease, unspecified (2) Hypertension Hypertension type: unspecified Qualified Code(s): I10 - Essential (primary) hypertension
--- NOTE | 2020-11-16 15:30 | Discharge Summary ---
Date of Service November 13, 2020 Admission HPI Per Admitting Provider The patient is a 75-year-old female with a past medical history including pancreatic adenocarcinoma, secondary polycythemia, asymptomatic PVCs, chronic osteoarthritis, primary hyperparathyroidism, COPD, dyslipidemia, hepatic steatosis, impaired fasting glucose, nontoxic multinodular goiter, venous insufficiency and hypertension. Patient underwent her first chemotherapy treatment for pancreatic cancer last week, and was due for a second treatment tomorrow. She presents with symptoms as noted above, and looks chronically debilitated and fatigued at this time. Principal Diagnosis Septic shock with Klebsiella bacteremia due to blocked biliary stent\ Pulmonary emboli Hemorrhagic shock due to spontaneous psoas hematoma Discharge Exam No physical exam performed. Patient . Discharge Data Allergies Allergy/AdvReac Type Severity Reaction Status Date / Time bupropion Allergy Severe Lip Verified 11/01/20 21:12 swelling bacitracin Allergy Unknown Emaceration Verified 11/01/20 21:12 of skin at site neomycin Allergy Unknown Emaceration Verified 11/01/20 21:12 of skin at site polymyxin B Allergy Unknown Emaceration Verified 11/01/20 21:12 of skin at site Aminoglycosides AdvReac Intermediate Skin Verified 11/01/20 21:12 irritation Consultations 11/02/20 00:38 ED Decision to Admit Stat 11/02/20 04:34 Consult Hematology Routine 11/02/20 08:19 Consult Gastroenterology Routine 11/02/20 11:31 Consult Director Payer Stat 11/03/20 08:07 Consult Cardiology Routine 11/06/20 10:57 Consult Palliative Care Routine Procedures Performed Operation Date: 11/02/20 10:40 Actual Procedures p Endoscopic Retrograde Cholangiopancreatogram with Stent Placement - Hector Mclain DO Ordered Studies 11/01/20 20:57 CT abd pelvis IV con only Urgent CT angio chest PE protocol Urgent 11/02/20 11:49 US venous doppler LE BI Routine 11/02/20 14:30 FL ERCP biliary ductal Routine 11/09/20 17:36 CT abd pelvis IV con only Urgent Hospital Course (1) Palliative care encounter: (2) Hemorrhagic shock: (3) Psoas hematoma, left, secondary to anticoagulant therapy: (4) Abdominal pain: (5) Septic shock: (6) Cholangitis: (7) Bacteremia: (8) Acute kidney injury: (9) Congestive heart failure: (10) Pulmonary embolism, bilateral: (11) Aortic valve disorder: (12) Pancreatic adenocarcinoma: (13) Hypomagnesemia: (14) Dyslipidemia: (15) Chronic obstructive pulmonary disease: (16) Hypertension: (17) Hypokalemia: (18) Anemia: (19) Thrombocytopenia: (20) Acute and chronic respiratory failure: (21) CKD (chronic kidney disease) stage 3, GFR 30-59 ml/min: (22) Diarrhea: (23) DVT prophylaxis: Dora Kirby is a 75 year old female with pancreatic adenocarcinoma admitted with shortness of breahth and generalized weakness. CT angiogram showed pulmonary emboli and she was started on Lovenox. She then when into septic shock requiring ICU admission and vasopressors. Underwent ERCP for cholangitis and found to have a completely occluded biliary stent which was removed. Unfortunately while recoring from this she started having a spontaneous hemorrhage into her psoas muscle causing hemorrhagic shock. Given severity of her medical issues and unlikely recovery even with agressive care on consultation with palliative care she was switched to a more comfort care approach. She peacefully at 20:15 on 11/13/2020. Total Time Total Time Spent Total Time Spent (In Minutes): 15 Discharge Plan Discharge Items Patient Disposition: Discharge Diagnosis: hemorrhagic shock Addtl Attending Provider Instructions: Dora Kirby was a 75y/o female with pancreatic adenocarcinoma, who unfortunately passed following development of spontaneous psoas hematoma causing hemorrhagic shock. Coding Level of Care Code D/C DAY MANAGEMENT <30 MINS Diagnoses Palliative care encounter Z51.5 Hemorrhagic shock R57.8 Psoas hematoma, left, secondary to anticoagulant therapy S30.1XXA Abdominal pain R10.9 Septic shock A41.9; R65.21 Cholangitis K83.09 Bacteremia R78.81 Acute kidney injury N17.9 Congestive heart failure I50.9 Pulmonary embolism, bilateral I26.99 Aortic valve disorder I35.9 Pancreatic adenocarcinoma C25.9 Hypomagnesemia E83.42 Dyslipidemia E78.5 Chronic obstructive pulmonary disease J44.9 COPD type: unspecified COPD Hypertension I10 Hypertension type: unspecified Hypokalemia E87.6 Anemia D64.9 Thrombocytopenia D69.6 Acute and chronic respiratory failure J96.20 CKD (chronic kidney disease) stage 3, GFR 30-59 ml/min N18.30 Diarrhea R19.7 DVT prophylaxis Z29.9
== END 2020-11-13 21:50 | disposition expired | DRG 871 ==
LOC: ED 19:30 → 2W 11-02 01:30 → SUATTDRO 11-02 01:30 → 2W 11-02 02:15 → 1E 11-02 10:10 → 2S 11-06 17:24